=== PATIENT | female | born 1990 | race Caucasian/White ===

== ENCOUNTER 2019-02-12 10:09 | Inpatient (IN) ==
[2019-02-12 11:47] LABS: Appearance Urine Clear (Clear); Bilirubin Urine Negative (Negative); Blood Urine Negative (Negative); Color Urine Yellow; Glucose Urine UA Negative (Negative); Ketones Urine Negative (Negative); Leukocyte Esterase Urine Negative (Negative); Nitrite Urine Negative (Negative); Protein Urine Negative (Negative); Specific Gravity Urine 1.009 (1.000-1.030); Urobilinogen Urine Negative (Negative); pH Urine 6.5 (4.5-7.5)
[2019-02-12 11:47] LABS: Basophils # (auto) 0.03 K/uL (0-0.2); Basophils % (auto) 0.8 %; Eosinophils # (auto) 0.09 K/uL (0-0.5); Eosinophils % (auto) 2.3 %; Hematocrit (blood only) 40.3 % (37-47); Hemoglobin 14.2 g/dL (12.0-16.0); Immature Granulocytes # (auto) 0.01 K/uL (0.00-0.02); Immature Granulocytes % (auto) 0.3 %; Lymphocytes % (auto) 42.9 %; Mean Corpuscular Hgb Conc 35.2 g/dL (32-36); Mean Corpuscular Volume 103.1 fL (80-100); Mean Platelet Volume 9.7 fL (7.4-10.4); Monocytes # (auto) 0.36 K/uL (0.11-0.59); Monocytes % (auto) 9.1 %; Neutrophils # (auto) 1.77 K/uL (1.4-6.5); Neutrophils % (auto) 44.6 %; Platelet Count 217 K/uL (130-400); RDW Coefficient of Variation 14.7 % (11.5-14.5); RDW Standard Deviation 54.8 fL (36.4-46.3); Red Blood Count 3.91 M/uL (4.2-5.4); White Blood Count 3.96 K/uL (4.8-10.8)
[2019-02-12 12:06] LABS: Albumin Level 4.2 gm/dl (3.4-5.0); BUN Creatinine Ratio 4.1 (10-20); Calcium 9.2 mg/dl (8.5-10.1); Creatinine Clr Calc Pharmacy 98.2 ml/min; Est GFR (African American) 127.5
[2019-02-12 12:14] LABS: Amphetamines+Metham, Urine Neg (Neg); Barbiturates, Urine Neg (Neg); Benzodiazepine, Urine Neg (Neg); Cocaine, Urine Neg (Neg); MDMA (Ecstacy), Urine Neg (Neg); Methadone, Urine Neg (Neg); Opiate, Urine Neg (Neg); Phencyclidine, Urine Neg (Neg)
[2019-02-12 12:16] LABS: Albumin Globulin Ratio 1.1 (0.9-2); Bilirubin,Total 0.6 mg/dl (0.2-1); Globulin 3.9 gm/dl (2.5-4.0); Total Protein 8.1 gm/dl (6.4-8.2)
[2019-02-12] MEDS ORDERED: SODIUM CHLORIDE 0.9% 1000ML 500 ML IV ONE (12:28)
[2019-02-12] MEDS ORDERED: SODIUM CHLORIDE 0.9% 1000ML 1,000 ML IV STA (12:28)
[2019-02-12] MEDS ORDERED: MULTI-VITAMIN INFUSION 10 ML, THIAMINE HCL 100 MG, FOLIC ACID 1 MG in SODIUM CHLORIDE 0... IV SCH (12:30)
[2019-02-12] MEDS ORDERED: POTASSIUM CHLORIDE / WTR 10 MEQ/100 ML PLCT IV ONE (13:50)
[2019-02-12] MEDS ORDERED: NICOTINE 14 MG/24 HR PATCH TD STA (14:05)
--- NOTE | 2019-02-12 14:48 | History & Physical Report ---
Date of Service February 12, 2019 Assessment & Plan (1) Alcohol withdrawal: Pt presented to ER with ETOH intoxication, having visual hallucinations. No tremors, N/V, diaphoresis. Is calm, alert. ETOH level: 344. Negative urine tox screen. negative urine . Vitals stable. Reports was sober for 4 days until yesterday. Typically drinks 5-6 drinks daily. Hx alcohol withdrawal seizure in past. At this time pt voices not interested in in-patient rehab and thinks would like to do out patient rehab. -In ER pt was given 500ml NSS bolus then ran at 125ml/hr, banana bag -admit tele -alcohol withdrawal protocol with gabapentin and ativan -seizure precautions -alcohol cessation encouraged -check magnesium and phosphorus -liver profile, cmp, cbc in am -thiamine, folic acid, multivitamin daily (2) Hypokalemia: K: 3.0 In ER pt given potassium 10meq IV -replace and monitor (3) Tobacco use: -nicotine patch -smoking cessation encouraged (4) Depression: Denies active suicidal or homicidal ideations or plan -continue fluoxetine DVT Prophylaxis -SCDs Full Code Follows with Dr Salazar for routine care Pt was seen with Dr Rodriguez. See addendum History of Present Illness Chief Complaint: alcohol use Primary Care Provider: Stephenie Simmons MD Pt is 28 y/o F with PMH alcohol abuse, alcohol withdrawal seizures, depression presented to ER for alcohol use.It is reported by ER staff the patient was brought to the ER for disorientation. It is reported patient's father brought patient in as he reported that she was having some hallucinations. Upon questioning in ER patient admits to drinking alcohol last night. Patient reports to this provider she had 6 alcoholic drinks last night, last being around 3 AM today. Patient states drinks 5-6 alcoholic drinks a day. States prior to yesterday did not have any alcohol for 4 Patient denies any other drug use. Patient states this morning she started with visual hallucinations. Patient denies any nausea, vomiting, sweats, anxiety, headache, tremors at this time She reports in the past goes for several days once a month without drinking. She states in the past when she stops drinking she has nausea and vomiting, tremors, sweats and headache. Patient denies any active suicidal or homicidal ideations. In past has had passive suicidal ideations. No history of suicidal attempt. No current plan. Pt reports lives with her father and grand mother. 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 Patient states yesterday took her doxepin in the morning upon returning home from work and was only able to sleep approximately an hour and woke up and felt disoriented and had a headache.Denies having problems with doxepin in the past. Patient states is been taking her Prozac and feels like her moods are stable. She reports following with [facility] for therapy, However she states that she does not feel this is a good fit for her. Patient with history of hospitalization 11/04/18 for alcohol withdrawal and was discharged to [facility] and discharged 11/26/18. Patient also with history of hospitalizationIn 08/2018 for alcohol withdrawal seizures and needed Precedex drip during that admission. Denies fever/chills, current diaphoresis, N/V/D/C, SWARTZ, dizziness, syncope, vision changes, neck pain, CP, SOB, orthopnea, palpitations, cough, sore throat, choking, otalgia, rhinorrhea, abdominal pain, paresthesias, weakness, extremity edema, rashes, urinary symptoms. Allergies Allergy/AdvReac Type Severity Reaction Status Date / Time No Known Allergies Allergy Unverified 09/09/18 09:31 Home Medications Home Medications Medication Instructions Recorded Confirmed Type fluoxetine [Prozac] 20 mg PO DAILY 11/03/18 02/12/19 History doxepin 100 mg PO HS 02/12/19 02/12/19 History Past Med/Surg History Medical History Depression (Chronic) Elevated LFTs (Chronic) Alcohol withdrawal seizure (Resolved) Alcohol withdrawal delirium, acute, hyperactive (Resolved) Alcoholism (Chronic) Alcohol withdrawal seizure (Inactive) Social History Preferred Language: Citizen Of [place] Communication Ability: Effective Visual Impairment: Partially Limited Beliefs That Will Affect Care: None marital status: Single marital status details: Boyfriend Current Living Situation: Family Feels Safe at Home: No Is there a partner from a previous relationship who is making you feel unsafe now?: No Smoking Status: Current every day smoker Tobacco Type: cigarettes Second Hand Exposure: Yes Hx Alcohol Use: Yes Alcohol type: hard liquor Alcohol Intake Frequency Comment: 6-7 daily Hx Substance Use: Yes substance use type: unknown Review of Systems Review of Systems: All systems reviewed & are unremarkable except as noted in HPI & below Physical Exam Physical Exam: General: no acute distress, WDWN Head: normocephalic, atraumatic Eyes: PERRL, EOM's intact, conjunctiva non-injected, anicteric ENT: normal inspection external ears, nose, mucous membranes moist Neck: supple, trachea midline, non-tender Lungs: clear, no respiratory distress, no wheezing/rhonchi/rales CV: RRR, no murmur, no JVD, no pretibial edema Abd: normal BS, soft, non-tender Ext: no cyanosis, no calf tenderness Neuro: A&O x 3, pt easily distracted, talks off topic, no focal deficits noted, mildly flat affect Skin: warm, dry Results & Data Vital Signs (Past 12 Hours) Vital Signs Temp Pulse Pulse Resp BP BP Pulse Ox 02/12/19 12:09 94 H 18 114/64 97 02/12/19 10:29 36.7 C 95 H 18 103/66 96 Laboratory Results Short CBC 02/12/19 Range/Units 11:38 WBC 3.96 L (4.8-10.8) K/uL Hgb 14.2 (12.0-16.0) g/dL Hct 40.3 (37-47) % Plt Count 217 (130-400) K/uL BMP 02/12/19 11:38 Sodium 140 Potassium 3.0 L Chloride 102 Carbon Dioxide 30 BUN 3 L Creatinine 0.75 Glucose 89 Calcium 9.2 Liver Function 02/12/19 Range/Units 11:38 Total Bilirubin 0.6 (0.2-1) mg/dl AST 61 H (15-37) U/L ALT 43 (12-78) U/L Alkaline Phosphatase 112 (45-117) U/L Albumin 4.2 (3.4-5.0) gm/dl Urine 02/12/19 Range/Units 11:25 Urine Color Yellow Urine Appearance Clear (Clear) Urine pH 6.5 (4.5-7.5) Ur Specific [place] 1.009 (1.000-1.030) Urine Protein Negative (Negative) Urine Glucose (UA) Negative (Negative) Supervising Physician Co-Signing Physician Notes Attending addendum The patient was seen and examined in the emergency room Pt is 28 y/o F with PMH alcohol abuse, alcohol withdrawal seizures, depression presented to ER for alcohol use.It is reported by ER staff the patient was brought to the ER for disorientation She did not denies any complaints during my examination Has had episodes of hallucinations On examination Looks drowsy but no apparent distress Hemodynamically stable without tachycardia or tachypnea Chest-clear to auscultate bilaterally Heart-S1-S2 regular, no murmur appreciated Abdomen-benign Extremities-negative for any edema ROOF 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 A little drowsy without any focal localizing signs. No tremor on outstretched hand Admission labs and imaging studies noted History of alcoholism with recurrent withdrawal before and required admission Admitted to telemetry unit with alcohol withdrawal syndrome Agree with assessment and plan as outlined above by Ratna Rodriguez (1) Alcohol withdrawal Complication of substance-induced condition: with unspecified complication Qualified Code(s): F10.239 - Alcohol dependence with withdrawal, unspecified
[2019-02-12] MEDS ORDERED: LORazepam 1 MG/2 ML VIAL IV STA (15:01)
[2019-02-12] MEDS ORDERED: LORazepam 1 MG TAB PO PRN (16:03)
[2019-02-12] MEDS ORDERED: SODIUM CHLORIDE 0.9% 1000ML 1,000 ML IV SCH (16:03)
[2019-02-12] MEDS ORDERED: POTASSIUM CHLORIDE 10 MEQ TABCR PO STA (16:03)
[2019-02-12] MEDS ORDERED: GABAPENTIN 1200MG ALCOHOL WITHDRAWAL LOAD PO STA (16:03)
[2019-02-12] MEDS ORDERED: ACETAMINOPHEN 325 MG TAB PO PRN (16:03)
[2019-02-12 16:46] LABS: Magnesium 1.7 mg/dl (1.8-2.4); Phosphorus 2.7 mg/dl (2.5-4.9)
[2019-02-12] MEDS ORDERED: LORAZEPAM 3MG IV ACTIVE PROTOCOL IV PRN (17:00)
[2019-02-12] MEDS ORDERED: LORAZEPAM 2MG IV ACTIVE PROTOCOL IV PRN (17:00)
[2019-02-12] MEDS ORDERED: LORAZEPAM 1MG IV ACTIVE PROTOCOL IV PRN (17:00)
[2019-02-12] MEDS ORDERED: MAGNESIUM SULFATE / D5W 1 GM/100 ML BAG IV ONE (17:30)
[2019-02-12] MEDS ORDERED: GABAPENTIN 600 MG TAB PO SCH (18:00)
--- NOTE | 2019-02-12 18:02 | Emergency Department Note ---
Entered by Yanna Reich acting as a scribe for Kameron Mcguire MD ED Provider Note CHIEF COMPLAINT: Detox Request HISTORY OF PRESENT ILLNESS: The patient is a 28 year old female who presents to the Emergency Room with complaints of a detox request today. The patient states that she takes doxepin and that she now has a job and is working the third shift overnight. The patient also reports that she takes Prozac. She reports a history of anxiety and depression and states that she has had thoughts of hurting herself but does not have a plan. The patient states that she has a cat and reports that the cat and her family are the only things keeping her alive. The patient states that she was anorexic and bulimic in the past and states that she has seen a therapist before. She states that she drinks alcohol daily but reports that she is 4 days sober. The patient reports having occasional vomiting. She states that she does not eat much. She also reports having some diarrhea. She states that she follows with Dr. Salazar. The patient's father states that the patient lived in [facility] and that they spent money to get her back here to save the patient's life. Her father states that the patient was drinking alcohol and was not working at this time. Per father, the patient went to [place] in the past and has had 2 detoxes here. Her father states that the patient has been lying and has been drinking. Per father, the patient went to rehabilitation for alcohol. Her father states that the patient is "up and down." Her father states that the patient has been hallucinating every day. Per father, the patient has also had 2 seizures. Per father, the patient smelled of alcohol this morning. Pt denies LOC, headache, fevers, chills, diaphoresis, visual changes, neck pain, chest pain, breathing difficulties, abdominal pain, back pain, melena, hematochezia, urinary symptoms, numbness, weakness, lymphadenopathy, rash, or other complaints. REVIEW OF SYSTEMS: See HPI for pertinent positives and negatives. A total of ten systems were reviewed and were otherwise negative. PMHx/PSHx: Hepatomegaly, DVT, seizure, alcohol withdrawal, alcoholism, anorexia, bulimia SOCIAL HISTORY: Patient lives at home. PHYSICAL EXAM: GENERAL: Awake, intoxicated-appearing, in no distress HENT: Normocephalic, atraumatic. Oropharynx unremarkable. Lateral nystagmus. EYES: PERRL. Normal conjunctiva. Sclera non-icteric. NECK: Inspection normal. Non-tender. Supple. No nuchal rigidity. FROM. No masses . RESPIRATORY: Clear to auscultation. No wheezes. No rales. Normal respiratory effort. CARDIAC: Borderline tachycardic rate. Normal rhythm. No murmurs. No rubs. Extremities warm and well perfused. Pulses equal. No JVD. GI: Soft, non-distended. No tenderness to palpation. No rebound or guarding. No masses. RECTAL: Deferred. MUSCULOSKELETAL: Atraumatic. Chest examination reveals no tenderness. The back is symmetrical on inspection without obvious abnormality. There is no CVA tenderness to palpation. No joint edema. LOWER EXTREMITIES: Calves are equal size bilaterally and non-tender. No edema. No discoloration. NEURO: Normal sensorium. No sensory or motor deficits noted. SKIN: No rash or jaundice noted. PSYCH: Vague SI. EMERGENCY DEPARTMENT COURSE: 1201: Past medical records reviewed. The patient was evaluated in room A7, and a complete history and physical examination were performed. 1318: The patient admitted to drinking last night. 1327: I discussed the patient's case with Ratna Monet admitting to Dr. Rodriguez who will evaluate the patient for further management. MEDICAL DECISION MAKING: Triage Nursing notes reviewed and agree them. Additional history obtained from the family. The patient's history was concerning for possible psychiatric disturbance and alcohol abuse. Differential diagnosis: Etiologies such as mood disorder, infection, hypoglycemia, electrolyte abnormalities, cardiac sources, intracerebral event, toxicologic, neurologic, as well as others were entertained. Physical examination: The physical examination was performed as above. No emergent medical pathologies were noted. ER treatment provided: IV normal saline Banana bag IV potassium Nicotine patch On reassessment the patient felt better. Diagnostic interpretation by me: The labs revealed an elevated MCV on her CBC. Patient's LFTs were minimally elevated as well. Her alcohol is significantly elevated at 344 mg/dL. The patient states she has not had alcohol since last night which raises concerns about the peak level being extremely elevated. Patient also has hypokalemia. Urine drug screen negative. Imaging studies: Deferred Consultation: A consultation was made with internal medicine. The patient will need further management in the hospital as she has very high risk for withdrawal having had seizures before. Case management was involved. IMPRESSION: Alcohol intoxication, hypokalemia, elevated LFTs PLAN: Admission The scribe's documentation has been prepared under my direction and personally reviewed by me in its entirety. I confirm that the note above accurately reflects all work, treatment, procedures, and medical decision making performed by me. Impression & Plan Alcohol intoxication, Hypokalemia, Elevated LFTs Past Med/Surg History Medical History Depression (Chronic) Elevated LFTs (Chronic) Alcohol withdrawal seizure (Resolved) Alcohol withdrawal delirium, acute, hyperactive (Resolved) Alcoholism (Chronic) Alcohol withdrawal seizure (Inactive) Social History Preferred Language: [place] Communication Ability: Effective Visual Impairment: Partially Limited V Belt Curer Required: No Beliefs That Will Affect Care: None marital status: Single marital status details: Boyfriend Current Living Situation: Family Other Information That Helps Us Care for You: No Feels Safe at Home: Yes Safety Concerns: Feels Safe At This Time Smoking Status: Current every day smoker Tobacco Type: cigarettes Do You Dip or Chew Tobacco: No Second Hand Exposure: Yes Tobacco Cessation Education Requested by Patient: Yes Hx Alcohol Use: Yes Alcohol type: beer, hard liquor and other Alcohol Intake Frequency Comment: 6-7 daily Hx Substance Use: No Results & Data Vital Signs Vital Signs - 24 hr 02/12/19 10:29 02/12/19 12:09 02/12/19 14:54 Temperature 36.7 C Temperature Source Oral Sepsis Recent Fever Within 48 Hours No Sepsis New/Unexplained Change in Mental Status No Sepsis Action Taken by Nursing No Action Required Pulse Rate 95 H Pulse Rate [Apical] 94 H 90 Pulse Rhythm [Apical] Regular Pulse Strength [Apical] Normal Respiratory Rate 18 18 16 Respiratory Effort / Characteristics Non-Labored Spontaneous Non-Labored Respiratory Depth Normal Normal Normal Respiratory Pattern Regular Blood Pressure 103/66 Blood Pressure [Left Arm] 114/64 113/75 Blood Pressure Mean 78 Blood Pressure Mean [Left Arm] 80 87 Blood Pressure Position [Left Arm] Lying Pulse Oximetry 96 97 100 Oxygen Delivery Method Room Air Room Air Room Air 02/12/19 16:03 Temperature 36.4 C L Temperature Source Oral Sepsis Recent Fever Within 48 Hours Sepsis New/Unexplained Change in Mental Status Sepsis Action Taken by Nursing Pulse Rate Pulse Rate [Apical] 90 Pulse Rhythm [Apical] Regular Pulse Strength [Apical] Normal Respiratory Rate 16 Respiratory Effort / Characteristics Non-Labored Respiratory Depth Normal Respiratory Pattern Blood Pressure Blood Pressure [Left Arm] 104/71 Blood Pressure Mean Blood Pressure Mean [Left Arm] 82 Blood Pressure Position [Left Arm] Sitting Pulse Oximetry 100 Oxygen Delivery Method Room Air Home Medications Current Medication List: was personally reviewed by me Laboratory Data Attestation: I reviewed the patient's lab results. Result diagrams: 02/12/19 11:38 02/12/19 11:38 Lab Results 02/12/19 02/12/19 02/12/19 Range/Units 11:25 11:25 11:25 WBC (4.8-10.8) K/uL RBC (4.2-5.4) M/uL Hgb (12.0-16.0) g/dL Hct (37-47) % MCV (80-100) fL MCH (25-34) pg MCHC (32-36) g/dL RDW Std Deviation (36.4-46.3) fL RDW Coeff of Vinod (11.5-14.5) % Plt Count (130-400) K/uL MPV (7.4-10.4) fL Immature Gran % (Auto) % Neut % (Auto) % Lymph % (Auto) % Rab[place] % (Auto) % Eos % (Auto) % Baso % (Auto) % Immature Gran # (Auto) (0.00-0.02) K/uL Neut # (Auto) (1.4-6.5) K/uL Lymph # (Auto) (1.2-3.4) K/uL [place] # (Auto) (0.11-0.59) K/uL Eos # (Auto) (0-0.5) K/uL Baso # (Auto) (0-0.2) K/uL Sodium (136-145) mmol/L Potassium (3.5-5.1) mmol/L Chloride (98-107) mmol/L Carbon Dioxide (21-32) mmol/L Anion Gap (3-11) BUN (7-18) mg/dl Creatinine (0.6-1.2) mg/dl Est Cr Clr Drug Dosing ml/min Est GFR ( Amer) Est GFR (Non-Af Amer) BUN/Creatinine Ratio (10-20) Glucose (70-99) mg/dl Calcium (8.5-10.1) mg/dl Phosphorus (2.5-4.9) mg/dl Magnesium (1.8-2.4) mg/dl Total Bilirubin (0.2-1) mg/dl AST (15-37) U/L ALT (12-78) U/L Alkaline Phosphatase (45-117) U/L Total Protein (6.4-8.2) gm/dl Albumin (3.4-5.0) gm/dl Globulin (2.5-4.0) gm/dl Albumin/Globulin Ratio (0.9-2) Folate (>5.38) ng/ml TSH (0.300-4.500) uIu/ml Urine Color Yellow Urine Appearance Clear (Clear) Urine pH 6.5 (4.5-7.5) Ur Specific [place] 1.009 (1.000-1.030) Urine Protein Negative (Negative) Urine Glucose (UA) Negative (Negative) Urine Ketones Negative (Negative) Urine Blood Negative (Negative) Urine Nitrite Negative (Negative) Urine Bilirubin Negative (Negative) Urine Urobilinogen Negative (Negative) Ur Leukocyte Esterase Negative (Negative) POC Ur Test NEG (NEG) Urine Opiates Screen Neg (Neg) Ur Methadone, Qual Neg (Neg) Urine Barbiturates Neg (Neg) Ur Phencyclidine (PCP) Neg (Neg) U Amphetamin/Meth Scrn Neg (Neg) MDMA (Ecstasy) Screen Neg (Neg) U Benzodiazepines Scrn Neg (Neg) Ur Cocaine Metabolite Neg (Neg) U Marijuana (THC) Screen Neg (Neg) Ethyl Alcohol mg/dL (0-3) mg/dl 02/12/19 02/12/19 02/12/19 Range/Units 11:38 11:38 11:38 WBC 3.96 L (4.8-10.8) K/uL RBC 3.91 L (4.2-5.4) M/uL Hgb 14.2 (12.0-16.0) g/dL Hct 40.3 (37-47) % MCV 103.1 H (80-100) fL MCH 36.3 H (25-34) pg MCHC 35.2 (32-36) g/dL RDW Std Deviation 54.8 H (36.4-46.3) fL RDW Coeff of Vinod 14.7 H (11.5-14.5) % Plt Count 217 (130-400) K/uL MPV 9.7 (7.4-10.4) fL Immature Gran % (Auto) 0.3 % Neut % (Auto) 44.6 % Lymph % (Auto) 42.9 % Rab[place] % (Auto) 9.1 % Eos % (Auto) 2.3 % Baso % (Auto) 0.8 % Immature Gran # (Auto) 0.01 (0.00-0.02) K/uL Neut # (Auto) 1.77 (1.4-6.5) K/uL Lymph # (Auto) 1.70 (1.2-3.4) K/uL [place] # (Auto) 0.36 (0.11-0.59) K/uL Eos # (Auto) 0.09 (0-0.5) K/uL Baso # (Auto) 0.03 (0-0.2) K/uL Sodium 140 (136-145) mmol/L Potassium 3.0 L (3.5-5.1) mmol/L Chloride 102 (98-107) mmol/L Carbon Dioxide 30 (21-32) mmol/L Anion Gap 8.0 (3-11) BUN 3 L (7-18) mg/dl Creatinine 0.75 (0.6-1.2) mg/dl Est Cr Clr Drug Dosing 98.2 ml/min Est GFR ( Amer) 127.5 Est GFR (Non-Af Amer) 110.0 BUN/Creatinine Ratio 4.1 L (10-20) Glucose 89 (70-99) mg/dl Calcium 9.2 (8.5-10.1) mg/dl Phosphorus (2.5-4.9) mg/dl Magnesium (1.8-2.4) mg/dl Total Bilirubin 0.6 (0.2-1) mg/dl AST 61 H (15-37) U/L ALT 43 (12-78) U/L Alkaline Phosphatase 112 (45-117) U/L Total Protein 8.1 (6.4-8.2) gm/dl Albumin 4.2 (3.4-5.0) gm/dl Globulin 3.9 (2.5-4.0) gm/dl Albumin/Globulin Ratio 1.1 (0.9-2) Folate (>5.38) ng/ml TSH 1.100 (0.300-4.500) uIu/ml Urine Color Urine Appearance (Clear) Urine pH (4.5-7.5) Ur Specific [place] (1.000-1.030) Urine Protein (Negative) Urine Glucose (UA) (Negative) Urine Ketones (Negative) Urine Blood (Negative) Urine Nitrite (Negative) Urine Bilirubin (Negative) Urine Urobilinogen (Negative) Ur Leukocyte Esterase (Negative) POC Ur Test (NEG) Urine Opiates Screen (Neg) Ur Methadone, Qual (Neg) Urine Barbiturates (Neg) Ur Phencyclidine (PCP) (Neg) U Amphetamin/Meth Scrn (Neg) MDMA (Ecstasy) Screen (Neg) U Benzodiazepines Scrn (Neg) Ur Cocaine Metabolite (Neg) U Marijuana (THC) Screen (Neg) Ethyl Alcohol mg/dL 344.0 H (0-3) mg/dl 02/12/19 02/12/19 Range/Units 16:10 16:10 WBC (4.8-10.8) K/uL RBC (4.2-5.4) M/uL Hgb (12.0-16.0) g/dL Hct (37-47) % MCV (80-100) fL MCH (25-34) pg MCHC (32-36) g/dL RDW Std Deviation (36.4-46.3) fL RDW Coeff of Vinod (11.5-14.5) % Plt Count (130-400) K/uL MPV (7.4-10.4) fL Immature Gran % (Auto) % Neut % (Auto) % Lymph % (Auto) % [place] % (Auto) % Eos % (Auto) % Baso % (Auto) % Immature Gran # (Auto) (0.00-0.02) K/uL Neut # (Auto) (1.4-6.5) K/uL Lymph # (Auto) (1.2-3.4) K/uL [place] # (Auto) (0.11-0.59) K/uL Eos # (Auto) (0-0.5) K/uL Baso # (Auto) (0-0.2) K/uL Sodium (136-145) mmol/L Potassium (3.5-5.1) mmol/L Chloride (98-107) mmol/L Carbon Dioxide (21-32) mmol/L Anion Gap (3-11) BUN (7-18) mg/dl Creatinine (0.6-1.2) mg/dl Est Cr Clr Drug Dosing ml/min Est GFR ( Amer) Est GFR (Non-Af Amer) BUN/Creatinine Ratio (10-20) Glucose (70-99) mg/dl Calcium (8.5-10.1) mg/dl Phosphorus 2.7 (2.5-4.9) mg/dl Magnesium 1.7 L (1.8-2.4) mg/dl Total Bilirubin (0.2-1) mg/dl AST (15-37) U/L ALT (12-78) U/L Alkaline Phosphatase (45-117) U/L Total Protein (6.4-8.2) gm/dl Albumin (3.4-5.0) gm/dl Globulin (2.5-4.0) gm/dl Albumin/Globulin Ratio (0.9-2) Folate > 24.00 (>5.38) ng/ml TSH (0.300-4.500) uIu/ml Urine Color Urine Appearance (Clear) Urine pH (4.5-7.5) Ur Specific [place] (1.000-1.030) Urine Protein (Negative) Urine Glucose (UA) (Negative) Urine Ketones (Negative) Urine Blood (Negative) Urine Nitrite (Negative) Urine Bilirubin (Negative) Urine Urobilinogen (Negative) Ur Leukocyte Esterase (Negative) POC Ur Test (NEG) Urine Opiates Screen (Neg) Ur Methadone, Qual (Neg) Urine Barbiturates (Neg) Ur Phencyclidine (PCP) (Neg) U Amphetamin/Meth Scrn (Neg) MDMA (Ecstasy) Screen (Neg) U Benzodiazepines Scrn (Neg) Ur Cocaine Metabolite (Neg) U Marijuana (THC) Screen (Neg) Ethyl Alcohol mg/dL (0-3) mg/dl Administered Medications Discontinued Medications Multivitamins 10 ml/ Thiamine HCl 100 mg/ Folic Acid 1 mg/Sodium Chloride 1,011.2 mls @ 1,011.2 mls/hr IV .Q1H RUSS Stop: 02/12/19 13:29 Last Infusion: 02/12/19 14:52 Dose: 0 mls/hr Documented by: [id number] Admin: 02/12/19 13:21 Dose: 1,011.2 mls/hr Documented by: [id number] Sodium Chloride (Nss 1000ml) 500 mls @ 999 mls/hr IV .Q31M ONE Stop: 02/12/19 12:58 Last Infusion: 02/12/19 13:20 Dose: 0 mls/hr Documented by: [id number] Admin: 02/12/19 12:46 Dose: 999 mls/hr Documented by: [id number] Sodium Chloride (Nss 1000ml) 1,000 mls @ 125 mls/hr IV .Q8H STA Stop: 02/12/19 20:27 Last Admin: 02/12/19 13:21 Dose: 125 mls/hr Documented by: [id number] Potassium Chloride (K Florentin / Wtr) 10 meq in 100 mls @ 100 mls/hr IV ONE ONE Stop: 02/12/19 14:49 Last Infusion: 02/12/19 17:21 Dose: 0 mls/hr Documented by: [id number] Admin: 02/12/19 14:36 Dose: 100 mls/hr Documented by: [id number] Blood Pressure Blood Pressure Findings: Normal blood pressure Discharge Plan Visit Data *Final* Discharge Date/Time: 02/12/19 14:57 Chief Complaint: Detox Request Stated Complaint: DETOX ED Provider: Kameron Mcguire Discharge Problem: Alcohol intoxication, Hypokalemia, Elevated LFTs Patient Disposition: Admitted As Inpatient Discharge Instructions Interventions: ED Discharge Assessment Last Done: 02/12/19 14:57 The scribe's documentation has been prepared under my direction and personally reviewed by me in its entirety. I confirm that the note above accurately reflects all work, treatment, procedures, and medical decision making performed by me.
[2019-02-12] MEDS: THIAMINE HCL 100 MG TAB PO SCH (18:04)
[2019-02-12] MEDS ORDERED: POTASSIUM CHLORIDE 20 MEQ TABCR PO ONE (19:00)
[2019-02-12] MEDS: GABAPENTIN 600 MG TAB PO SCH (23:38)
[2019-02-13] MEDS: GABAPENTIN 600 MG TAB PO SCH ×4 (05:53→21:44)
[2019-02-13 07:14] LABS: Hematocrit (blood only) 35.8 % (37-47); Hemoglobin 11.9 g/dL (12.0-16.0); Mean Corpuscular Hgb Conc 33.2 g/dL (32-36); Mean Corpuscular Volume 105.9 fL (80-100); Mean Platelet Volume 9.5 fL (7.4-10.4); Platelet Count 182 K/uL (130-400); RDW Coefficient of Variation 14.6 % (11.5-14.5); RDW Standard Deviation 56.3 fL (36.4-46.3); Red Blood Count 3.38 M/uL (4.2-5.4); White Blood Count 4.46 K/uL (4.8-10.8)
[2019-02-13 07:45] LABS: Alanine Aminotransferase 32 U/L (12-78); Albumin Level 3.1 gm/dl (3.4-5.0); Alkaline Phosphatase 104 U/L (45-117); Aspartate Aminotransferase 47 U/L (15-37); BUN Creatinine Ratio 11.8 (10-20); Bilirubin Direct < 0.1 mg/dl (0-0.2); Bilirubin,Total 0.3 mg/dl (0.2-1); Blood Urea Nitrogen 8 mg/dl (7-18); Calcium 8.7 mg/dl (8.5-10.1); Carbon Dioxide 27 mmol/L (21-32); Chloride 109 mmol/L (98-107); Creatinine Clr Calc Pharmacy 103.1 ml/min; Est GFR (African American) 138.6; Est GFR (Non-African American) 119.6; Globulin 3.2 gm/dl (2.5-4.0); Glucose 77 mg/dl (70-99); Magnesium 1.8 mg/dl (1.8-2.4); Potassium 3.7 mmol/L (3.5-5.1); Sodium 143 mmol/L (136-145); Total Protein 6.3 gm/dl (6.4-8.2)
[2019-02-13] MEDS: FLUOXETINE HCL 20 MG CAP PO SCH (08:25)
[2019-02-13] MEDS: FOLIC ACID 400 MCG TAB PO SCH (08:25)
[2019-02-13] MEDS: MULTIVITAMIN TAB PO SCH (08:25)
[2019-02-13] MEDS: THIAMINE HCL 100 MG TAB PO SCH (08:25)
--- NOTE | 2019-02-13 10:59 | Hospitalist Progress Note ---
Date of Service February 13, 2019 Assessment & Plan (1) Alcohol withdrawal: This is a 28yo F with a PMH of alcohol use disorder, h/o alcohol withdrawal seizure and delirium, tobacco use who presented to ER with ETOH intoxication, having visual hallucination with ETOH level of 344. -Feeling much better today. Vital signs are stable. Etoh level <3. No tremors, nausea or vomiting - Typically drinks 5-6 drinks daily, last drink 2 days ago. H/o alcohol withdrawal seizure in past. -Discussed inpatient and outpatient rehab options, but patient is not interested in either at this time -Will continue to monitor today with alcohol withdrawal protocol with gabapentin and ativan -Seizure precautions -Alcohol cessation encouraged -Continue Thiamine, folic acid, multivitamin daily (2) Hypokalemia: Resolved. K today 3.7 -Eating well, no diarrhea -Continue to monitor with daily BMP (3) Tobacco use: -Nicotine patch ordered -smoking cessation encouraged (4) Depression: Denies active suicidal or homicidal ideations or plan -Continue fluoxetine DVT Prophylaxis: SCDs Code status: FULL PCP: Dr Salazar Dispo: Monitor overnight. Possible discharge home tomorrow. Plan to return home once medically stable. Patient seen in collaboration with Dr. Rodriguez. Please see addendum. Attending Addendum: delayed entry date of service as noted above care coordinated with NISREEN Lopez please refer to her notes for full details, I agree with her notes patient seen and examined, records reviewed by myself as well on exam, patient seen with RN at bedside thru whole encounter states she feels fine overall denies tremors, anxiety, palpitations, chest pain, dyspnea, dizziness no other symptoms VS noted and reviewed oriented x3, not in distress, speaks in sentences with no effort nor accessory muscle use normal rate, regular rhythm, no murmurs clear breath sounds bilaterally non distended, soft, nontender no bipedal edema, erythema, warmth no neuro deficits WBC 4.4 Hg 11.9 Crea 0.61 ASSESSMENT AND PLAN Alcohol withdrawal No signs of alcohol withdrawal symptoms at this time Continue gabapentin protocol Continue to monitor closely History of depression Denies feeling depressed with suicidal ideations Continue usual fluoxetine other diagnoses and plan of care as per NISREEN Lopez's notes Ganga Rodriguez MD Subjective Patient seen and examined. Feeling much better today, denies any lightheadedness, headache, seizure, nausea, vomiting or tremors. Slept well last night, tolerating food well. Discussed option of outpatient rehab, but patient states that she is tried it before and is not interested in it at this time. No fever, chills, chest pain, palpitations, shortness of breath, abdominal pain, dysuria, diarrhea or constipation. Review of Systems Review of Systems: At least ten systems reviewed and negative except as noted in the HPI. Physical Exam Physical Exam: General Appearance: WD/WN, no apparent distress, resting comfortably Head: normocephalic, atraumatic Eyes: normal inspection, PERRL, EOMI ENT: hearing grossly normal, pharynx normal (moist mucous membranes) Neck: supple, no JVD, no adenopathy Respiratory/Chest: lungs clear to auscultation. No wheezes, rales or rhonci. No respiratory distress or accessory muscle use Cardiovascular: regular rate, rhythm, no murmur, normal peripheral pulses Abdomen/GI: normal bowel sounds, soft, non-tender to palpation Extremities/Musculoskelatal: normal inspection, no calf tenderness, normal capillary refill, no pedal edema Neurologic/Psych: alert, normal mood/affect, oriented x 3 Skin: normal color, warm/dry Results & Data Vital Signs (Past 12 Hours) Vital Signs Temp Pulse Pulse Resp BP BP Pulse Ox 02/13/19 08:00 72 02/13/19 07:03 36.6 C 73 18 126/89 97 02/13/19 03:12 37.3 C 76 18 124/82 96 02/13/19 00:31 105 H 02/13/19 00:00 02/12/19 23:25 37 C 110 H 16 107/64 97 Pulse Ox 02/13/19 08:00 96 02/13/19 07:03 02/13/19 03:12 02/13/19 00:31 02/13/19 00:00 96 02/12/19 23:25 Laboratory Results Short CBC 02/13/19 Range/Units 06:56 WBC 4.46 L (4.8-10.8) K/uL Hgb 11.9 L (12.0-16.0) g/dL Hct 35.8 L (37-47) % Plt Count 182 (130-400) K/uL BMP 02/13/19 06:56 Sodium 143 Potassium 3.7 D Chloride 109 H Carbon Dioxide 27 BUN 8 D Creatinine 0.70 Glucose 77 Calcium 8.7 Liver Function 02/13/19 Range/Units 06:56 Total Bilirubin 0.3 (0.2-1) mg/dl Direct Bilirubin < 0.1 (0-0.2) mg/dl AST 47 H (15-37) U/L ALT 32 (12-78) U/L Alkaline Phosphatase 104 (45-117) U/L Albumin 3.1 L (3.4-5.0) gm/dl (1) Alcohol withdrawal Complication of substance-induced condition: with unspecified complication Qualified Code(s): F10.239 - Alcohol dependence with withdrawal, unspecified
[2019-02-13] MEDS: NICOTINE 21 MG/24 HR TDSY TD SCH (18:20)
[2019-02-14] MEDS: GABAPENTIN 600 MG TAB PO SCH (05:37)
[2019-02-14 05:49] LABS: Hematocrit (blood only) 41.4 % (37-47); Hemoglobin 14.5 g/dL (12.0-16.0); Mean Corpuscular Volume 104.8 fL (80-100); Mean Platelet Volume 10.3 fL (7.4-10.4); Platelet Count 205 K/uL (130-400); RDW Coefficient of Variation 14.6 % (11.5-14.5); RDW Standard Deviation 55.4 fL (36.4-46.3); Red Blood Count 3.95 M/uL (4.2-5.4)
[2019-02-14 06:17] LABS: BUN Creatinine Ratio 6.5 (10-20); Calcium 9.7 mg/dl (8.5-10.1); Creatinine Clr Calc Pharmacy 118.7 ml/min; Est GFR (Non-African American) 125.1; Potassium 3.7 mmol/L (3.5-5.1)
[2019-02-14] MEDS: FLUOXETINE HCL 20 MG CAP PO SCH (07:58)
[2019-02-14] MEDS: THIAMINE HCL 100 MG TAB PO SCH (07:58)
[2019-02-14] MEDS: FOLIC ACID 400 MCG TAB PO SCH (07:58)
[2019-02-14] MEDS: MULTIVITAMIN TAB PO SCH (07:58)
[2019-02-14] MEDS: NICOTINE 21 MG/24 HR TDSY TD SCH (07:58)
--- NOTE | 2019-02-14 10:26 | Hospitalist Progress Note ---
Date of Service February 14, 2019 Assessment & Plan (1) Alcohol withdrawal: This is a 28yo F with a PMH of alcohol use disorder, h/o alcohol withdrawal seizure and delirium, tobacco use who presented to ER with ETOH intoxication, having visual hallucination with ETOH level of 344. -Continues to feel well. More anxious with hypertension and tachycardia this morning. Resolved with PRN 0.5mg IV ativan. Will continue as needed -Withdrawal protocol with gabapentin. Now on Q12 scheduling. PRN Ativan 0.5mg IV Q4H -Will continue to monitor overnight, history h/o delirium and alcohol withdrawal seizure in past, last drink 2.5 days ago -Discussed inpatient and outpatient rehab options, but patient is not interested in either at this time -Seizure precautions -Alcohol cessation encouraged -Continue Thiamine, folic acid, multivitamin daily (2) Hypokalemia: Resolved. K today 3.7 -Eating well, no diarrhea -Continue maintenance fluids with 20 mEQ KCL (3) Tobacco use: -Nicotine patch ordered -Smoking cessation encouraged (4) Depression: Denies active suicidal or homicidal ideations or plan -Continue fluoxetine -Not receiving Doxepin. Recommend following up with PCP to further discuss this DVT Prophylaxis: SCDs, ambulation encouraged Code status: FULL PCP: Dr Salazar Dispo: Monitor overnight. Possible discharge home tomorrow. Plan to return home once medically stable. Patient seen in collaboration with Dr. Rodriguez. Please see addendum. Attending Addendum: Late entry date of service as noted above care coordinated with NISREEN Lopez please refer to her notes for full details, I agree with her notes patient seen and examined, records reviewed by myself as well Seen with KARO Amaya at bedside throughout the whole encounter on exam, patient seen resting in bed, comfortable States she feels fine overall Denies feeling shaky, anxiety, hallucinations Shortness of breath, chest pain, dizziness no other symptoms VS noted and reviewed oriented x3, not in distress, speaks in sentences with no effort nor accessory muscle use normal rate, regular rhythm, no murmurs clear breath sounds bilaterally crackles wheezing non distended, soft, nontender no bipedal edema, erythema, warmth no neuro deficits Positive mild tremors of the fingers WBC 4.7 Hg 14.5 Crea 0.61 ASSESSMENT AND PLAN Alcohol withdrawal Positive mild tremors today Continue gabapentin protocol On PRN Ativan Continue to monitor closely History of depression Denies feeling depressed with suicidal ideations Continue usual fluoxetine other diagnoses and plan of care as per NISREEN Lopez's notes Ganga Rodriguez MD Subjective Patient seen and examined. Feeling better today, able to do yoga this morning. Now feeling a little anxious, with hand tremors. Denies any lightheadedness, headache, seizure, nausea or vomiting. Tolerating food, increased oral intake of fluids. Discussed patient staying until morning to due history of etoh withdrawal seizure, still within window of risk. Is agreeable to this. No fever, chills, chest pain, palpitations, shortness of breath, abdominal pain, dysuria, diarrhea or constipation. Review of Systems Review of Systems: At least ten systems reviewed and negative except as noted in the HPI. Physical Exam Physical Exam: General Appearance: WD/WN, no apparent distress, mildly anxious with hand tremors Head: normocephalic, atraumatic Eyes: normal inspection, PERRL, EOMI ENT: hearing grossly normal, pharynx normal (moist mucous membranes) Neck: supple, no JVD, no adenopathy Respiratory/Chest: lungs clear to auscultation. No wheezes, rales or rhonci. No respiratory distress or accessory muscle use Cardiovascular: tachycardic, rhythm, no murmur, normal peripheral pulses Abdomen/GI: normal bowel sounds, soft, non-tender to palpation Extremities/Musculoskelatal: normal inspection, no calf tenderness, normal capillary refill, no pedal edema Neurologic/Psych: alert, normal mood/affect, oriented x 3 Skin: normal color, warm/dry Results & Data Vital Signs (Past 12 Hours) Vital Signs Temp Pulse Pulse Resp BP BP Pulse Ox 02/14/19 09:00 68 02/14/19 08:10 36.4 C L 70 19 146/101 H 100 02/14/19 08:00 02/14/19 03:27 37.0 C 84 17 137/97 100 02/14/19 00:10 91 H 02/13/19 23:40 36.9 C 79 20 134/95 99 Pulse Ox 02/14/19 09:00 02/14/19 08:10 02/14/19 08:00 96 02/14/19 03:27 02/14/19 00:10 02/13/19 23:40 Laboratory Results Short CBC 02/14/19 Range/Units 05:26 WBC 4.70 L (4.8-10.8) K/uL Hgb 14.5 (12.0-16.0) g/dL Hct 41.4 (37-47) % Plt Count 205 (130-400) K/uL BMP 02/14/19 05:26 Sodium 138 Potassium 3.7 Chloride 104 Carbon Dioxide 31 BUN 4 L Creatinine 0.61 Glucose 92 Calcium 9.7 (1) Alcohol withdrawal Complication of substance-induced condition: with unspecified complication Qualified Code(s): F10.239 - Alcohol dependence with withdrawal, unspecified
[2019-02-14] MEDS: LORazepam 0.5 MG/1 ML VIAL IV PRN ×2 (10:35→23:15)
[2019-02-14] MEDS: NSS + 20MEQ KCL 20 MEQ/1,000 ML BAG IV SCH (12:17)
[2019-02-15] MEDS: NSS + 20MEQ KCL 20 MEQ/1,000 ML BAG IV SCH ×2 (03:59→16:21)
[2019-02-15] MEDS: GABAPENTIN 600 MG TAB PO SCH (06:16)
[2019-02-15 06:41] LABS: Hematocrit (blood only) 39.5 % (37-47); Hemoglobin 13.6 g/dL (12.0-16.0); Mean Corpuscular Hgb Conc 34.4 g/dL (32-36); Mean Corpuscular Volume 105.9 fL (80-100); Mean Platelet Volume 10.3 fL (7.4-10.4); Platelet Count 217 K/uL (130-400); RDW Coefficient of Variation 15.1 % (11.5-14.5); RDW Standard Deviation 57.4 fL (36.4-46.3); Red Blood Count 3.73 M/uL (4.2-5.4); White Blood Count 5.53 K/uL (4.8-10.8)
[2019-02-15 07:15] LABS: BUN Creatinine Ratio 11.9 (10-20); Calcium 8.9 mg/dl (8.5-10.1); Creatinine Clr Calc Pharmacy 111.4 ml/min; Est GFR (Non-African American) 122.5
[2019-02-15 08:08] LABS: Potassium 4.3 mmol/L (3.5-5.1)
[2019-02-15] MEDS: NICOTINE 21 MG/24 HR TDSY TD SCH (08:15)
[2019-02-15] MEDS: FLUOXETINE HCL 20 MG CAP PO SCH (08:16)
[2019-02-15] MEDS: FOLIC ACID 400 MCG TAB PO SCH (08:16)
[2019-02-15] MEDS: THIAMINE HCL 100 MG TAB PO SCH (08:16)
[2019-02-15] MEDS: MULTIVITAMIN TAB PO SCH (08:16)
--- NOTE | 2019-02-15 11:08 | Hospitalist Progress Note ---
Date of Service February 15, 2019 Assessment & Plan (1) Alcohol withdrawal: This is a 28yo F with a PMH of alcohol use disorder, h/o alcohol withdrawal seizure and delirium, tobacco use who presented to ER with ETOH intoxication, having visual hallucination with ETOH level of 344. -Feeling better. Some tachycardia overnight, required PRN Ativan twice yesterday, still on gabapentin taper until tomorrow -History h/o delirium and alcohol withdrawal seizure in past, last drink 3 days ago -Discussed inpatient and outpatient rehab options, but patient is not interested in either at this time -Alcohol cessation encouraged. Continue Thiamine, folic acid, multivitamin daily (2) Hypokalemia: Resolved. 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 Plan to return home once medically stable. Patient seen in collaboration with Dr. Rodriguez. Please see addendum. Attending Addendum: care coordinated with NISREEN Lopez please refer to her notes for full details, I agree with her notes patient seen and examined, records reviewed by myself as well And seen with KARO Polk and patient's father at the bedside throughout the whole encounter on exam, patient seen sitting up in bed, comfortable, not in distress States she is anxious today because that she would like to go home and go back to work as well Otherwise denies hallucinations, sweating, chest pain, dizziness, shortness of breath Ambulating with no problems no other symptoms VS noted and reviewed oriented x3, not in distress, speaks in sentences with no effort nor accessory muscle use normal rate, regular rhythm, no murmurs clear breath sounds bilaterally non distended, soft, nontender no bipedal edema, erythema, warmth Positive very mild tremors of the fingers no neuro deficits WBC 5.5 Hg 13.6 Crea 0.65 ASSESSMENT AND PLAN Alcohol withdrawal Still with mild tremors of the fingers today Continue gabapentin protocol PRN Ativan Discussed with patient and her father, they are understanding and agreeable with plan of care History of depression Denies feeling depressed with suicidal ideations Patient's father reports that patient's mood has been up and down lately, also reports regular sleep She currently takes Prozac and doxepin Doxepin held after discussion with psychiatry service, may cause cardiotoxicity if taken in large amounts Psychiatry service consulted for further evaluation and medical management other diagnoses and plan of care as per NISREEN Lopez's notes Ganga Rordiguez MD Subjective Patient seen and examined. Feeling better today, able to walk around halls last evening and this morning. Feeling anxious about returning home but also nervous about losing her job as she states in hospital longer. Physically, feeling good. Mild hand tremors. Denies any lightheadedness, headache, palpitations, chest pain, shortness of breath or abdominal pain. Eating well. Wants to go home today, but understands that she is still in the process of withdrawal. After discussion with her dad, patient is agreeable to staying 1 more day for psychiatric evaluation for depression/anxiety. Review of Systems Review of Systems: At least ten systems reviewed and negative except as noted in the HPI. Physical Exam Physical Exam: General Appearance: WD/WN, no apparent distress, +anxious with mild hand tremoring Head: normocephalic, atraumatic Eyes: normal inspection, PERRL, EOMI ENT: hearing grossly normal, pharynx normal (moist mucous membranes) Neck: supple, no JVD, no adenopathy Respiratory/Chest: lungs clear to auscultation. No wheezes, rales or rhonci. No respiratory distress or accessory muscle use Cardiovascular: tachycardic, rhythm, no murmur, normal peripheral pulses Abdomen/GI: normal bowel sounds, soft, non-tender to palpation Extremities/Musculoskelatal: normal inspection, no calf tenderness, normal capillary refill, no pedal edema Neurologic/Psych: alert, anxious mood/affect, oriented x 3, moving around room during exam Skin: normal color, warm/dry Results & Data Vital Signs (Past 12 Hours) Vital Signs Temp Pulse Resp BP BP Pulse Ox Pulse Ox 02/15/19 11:01 36.4 C L 88 18 115/80 97 02/15/19 08:00 98 02/15/19 07:38 36.7 C 74 18 127/91 99 02/15/19 03:53 36.9 C 91 H 19 123/94 98 02/15/19 00:15 37.1 C 90 19 121/83 99 02/15/19 00:00 98 02/14/19 23:41 98 Laboratory Results Short CBC 02/15/19 Range/Units 06:30 WBC 5.53 (4.8-10.8) K/uL Hgb 13.6 (12.0-16.0) g/dL Hct 39.5 (37-47) % Plt Count 217 (130-400) K/uL BMP 02/15/19 02/15/19 06:30 07:34 Sodium 136 Potassium 4.3 D Chloride 105 Carbon Dioxide 26 BUN 8 Creatinine 0.65 Glucose 97 Calcium 8.9 (1) Alcohol withdrawal Complication of substance-induced condition: with unspecified complication Qualified Code(s): F10.239 - Alcohol dependence with withdrawal, unspecified
--- NOTE | 2019-02-15 12:19 | Psychiatric Consultation ---
Date of Consultation February 15, 2019 Impression / Recommendations Impression 28-year-old woman admitted with alcohol intoxication and withdrawal. Consult requested to evaluate depression. Patient readily admits that she is depressed and anxious. She has been on Prozac 20 from her PCP and agrees to increase this to 40 mg daily. She does not think that she has the money to be able to see a psychiatrist and wants to follow with her PCP for the Prozac. Her dosage may well need to be titrated up to the high and given the chronic anxiety. I have advised that she give up alcohol for the foreseeable future but she seems to believe that she can drink a little on a social basis. I have recommended against this and encouraged her to return to substance abuse treatment. She does not appear to have good insight into her alcohol abuse/dependence which does not enrique well for the future. She is not suicidal, homicidal and so therefore is not going to meet criteria for any kind of inpatient treatment. I agree with holding doxepin given the concomitant FIRER RETORT depression associated with that and alcohol use. I would furthermore avoid benzodiazepines in the future other than when in alcohol withdrawal. Inventory Assets Strengths: Wants to try to reduce drinking Needs: To abstain from alcohol Risk Factors Assessment Male: No : Yes Do You Have Access To A Gun?: Yes (Locked) Health Problems: No Mental Health Diagnoses: Yes Substance Use Disorders: Yes Previous Attempt: No Previous Psychiatric Hospitalization: No Protective Factors Assessment : No Responsible for Young Children: No Employed: Yes Stable Relationships: No Supportive Family: Yes CPT Code 44975 Psych History Identifying Data 28 yo female admitted with alcohol intoxication and withdrawal. We are consulted to evaluate depression. Information is gathered from the patient and considered to be reliable. Chief Complaint "I've been up and down. ". History of Present Illness The patient is a 28-year old woman who is admitted medically due to alcohol intoxication and withdrawal. She was previously in our hospital in October 2018 and discharged to rehab at [facility] and was released from there on November 26. She apparently resumed drinking shortly after that and admits she has been drinking 3/4 of the very large beers most days. She says that she had no alcohol for 4 days until the day of admission at which time she had 3 big drinks and ended up getting "belligerent" and she reports that her father demanded she return to the hospital. In terms of her mood, the patient states that she first became depressed about the age of 18. She did not receive treatment and it eventually went away. 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 While there her mood deteriorated with the onset of anxiety mostly related to work. 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 She was asked not to return. At that point she moved home in July 2018. 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 She admits that her mood has mostly been "down". She has a history of suicidal ideation but denies any presently. She reports sleep that has been impaired with both d ifficulty falling asleep as well as staying asleep. She had been on doxepin. She reports stable appetite with no recent weight changes. The anxiety is described as frequently having a sensation in her head that is pulselike and runs down the middle of her skull. She believes that these were symptoms of panic attacks and had these most frequently while still in [place] and has not had any since return. She admits to a history of self-injurious behaviors when she was 16 but nothing since. She denies symptoms of OCD. She has a history of eating disorders including restricting, purging and over exercising as a teenager however no longer engages in these activities. She denies discrete episodes of euphoric mood, sleeplessness or pleasure seeking behaviors that would be congruent with bipolar disorder. She has an irritable edge to her feeling like everybody else in her family has followed a predictable path in their life and they do not support her nontraditional approach. Past Psychiatric History Previous Psych History: Saw a counselor in her teens for her eating disorder Outpatient Services: Had recently been in therapy at [facility] for drug and alcohol problems Previous Psych Admissions: Denies Do You Have Access To A Gun?: Yes (Locked) History of Previous Suicide Attempt: No Past Medication Trials: Palauan equivalent of Xanax Allergies Allergy/AdvReac Type Severity Reaction Status Date / Time No Known Allergies Allergy Unverified 09/09/18 09:31 Home Medications Home Medications Medication Instructions Recorded Confirmed Type fluoxetine [Prozac] 20 mg PO DAILY 11/03/18 02/12/19 History doxepin 100 mg PO HS 02/12/19 02/12/19 History Family History Positive for cannabis abuse in father Substance Abuse History Patient admits to a history of abusing opiates but not currently. Has been drinking almost daily for the last 2 years. Currently drinking 3-4 large beers per day, starting to drink when she wakes up. Longest period of sobriety in the time has been 4 days prior to this admission and the. That she was in rehab. She has been in outpatient counseling with [facility] but does not think it is a good match and does not want to return. She does not want to return to rehab. Personal History Living Arrangements: Home (With father and grandmother) Childhood: Grew up in [place]. Parents are . Her mother took her sister and left and she remained with her father. 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[employer]) Marital Status: Beliefs That Will Affect Care: None Patient History Medical History Depression (Chronic) Elevated LFTs (Chronic) Alcohol withdrawal seizure (Resolved) Alcohol withdrawal delirium, acute, hyperactive (Resolved) Alcoholism (Chronic) Alcohol withdrawal seizure (Inactive) Social History Preferred Language: Venezuelan Communication Ability: Effective Visual Impairment: Partially Limited Visual Display Associate Required: No Beliefs That Will Affect Care: None marital status: Single marital status details: Boyfriend Current Living Situation: Family Other Information That Helps Us Care for You: No Feels Safe at Home: Yes Safety Concerns: Feels Safe At This Time Smoking Status: Current every day smoker Tobacco Type: cigarettes Do You Dip or Chew Tobacco: No Second Hand Exposure: Yes Tobacco Cessation Education Requested by Patient: Yes Hx Alcohol Use: Yes Alcohol type: beer, hard liquor and other Alcohol Intake Frequency Comment: 6-7 daily Hx Substance Use: No Physical Exam 2 Psychiatric: Orientation: alert, oriented x 3 and cooperative Apperance: + disheveled Eye Contact: good eye contact Motor Behavior: no abnormal motor movements Speech: normal rate/rhythm/volume of speech Affect: + flat affect and + tearful affect Mood: + depressed mood and + anxious mood Thought Process: goal directed thought process Thought Content: reality based without delusions Suicidal Thoughts: denies suicidal thoughts Homicidal Thoughts: denies homicidal thoughts Hallucinations: no auditory hallucinations and no visual hallucinations Cognition: recent memory grossly intact, remote memory grossly intact, attention grossly intact and language grossly intact Estimated Intelligence: consistent with education level Insight: + limited insight Judgement: + limited judgement Vital Signs (Past 24 Hours): Last Vital Signs Temp 36.4 C L 02/15/19 11:01 Pulse 88 02/15/19 11:01 Resp 18 02/15/19 11:01 BP 115/80 02/15/19 11:01 Pulse Ox 97 02/15/19 11:01 Results & Data Medications Administered Folic Acid (Folvite) 400 mcg PO QAM URSS Stop: 03/15/19 08:59 Last Admin: 02/15/19 08:16 Dose: 400 mcg Documented by: [id number] Admin: 02/14/19 07:58 Dose: 400 mcg Documented by: [id number] Admin: 02/13/19 08:25 Dose: 400 mcg Documented by: [id number] Lorazepam (Ativan) 0.5 mg in 1 mls @ 1 mls/min IV Q4H PRN PRN Reason: Anxiety Stop: 03/16/19 09:46 Last Admin: 02/14/19 23:15 Dose: 1 mls/min Documented by: [id number] Admin: 02/14/19 10:35 Dose: 1 mls/min Documented by: [id number] Potassium Chloride/Sodium Chloride (Normal Saline W/20 Meq Kcl) 20 meq in 1,000 mls @ 80 mls/hr IV .[id number] [facility] Stop: 03/16/19 10:29 Last Admin: 02/15/19 03:59 Dose: 80 mls/hr Documented by: [id number] Infusion: 02/15/19 00:47 Dose: 80 mls/hr Documented by: [id number] Admin: 02/14/19 12:17 Dose: 80 mls/hr Documented by: [id number] Miscellaneous (Remove Nicoderm Patch) 1 ea N/A HS [facility] Stop: 03/15/19 20:59 Last Admin: 02/14/19 20:36 Dose: 1 ea Documented by: [id number] Admin: 02/13/19 21:44 Dose: Not Given Documented by: [id number] Multivitamins (Multivitamin Tab) 1 tab PO QAM [facility] Stop: 03/15/19 08:59 Last Admin: 02/15/19 08:16 Dose: 1 tab Documented by: [id number] Admin: 02/14/19 07:58 Dose: 1 tab Documented by: [id number] Admin: 02/13/19 08:25 Dose: 1 tab Documented by: [id number] Nicotine (Nicoderm Cq) 21 mg TD [facility] Stop: 03/15/19 16:59 Last Admin: 02/15/19 08:15 Dose: 21 mg Documented by: [id number] Admin: 02/14/19 07:58 Dose: 21 mg Documented by: [id number] Admin: 02/13/19 18:20 Dose: 21 mg Documented by: [id number] Thiamine HCl (Vitamin B-1) 100 mg PO [facility] Stop: 03/14/19 16:02 Last Admin: 02/15/19 08:16 Dose: 100 mg Documented by: [id number] Admin: 02/14/19 07:58 Dose: 100 mg Documented by: [id number] Admin: 02/13/19 08:25 Dose: 100 mg Documented by: [id number] Admin: 02/12/19 18:04 Dose: 100 mg Documented by: [id number]
[2019-02-15] MEDS: LORazepam 0.5 MG/1 ML VIAL IV PRN (21:48)
[2019-02-16] MEDS ORDERED: GABAPENTIN 600 MG TAB PO SCH (06:00)
[2019-02-16] MEDS ORDERED: FLUOXETINE HCL 20 MG CAP PO SCH (09:00)
--- NOTE | 2019-02-18 11:45 | Discharge Summary ---
Date of Service February 18, 2019 Admission HPI Per Admitting Provider The patient is a 28-year old woman who is admitted medically due to alcohol intoxication and withdrawal. She was previously in our hospital in October 2018 and discharged to rehab at [facility] and was released from there on November 26. She apparently resumed drinking shortly after that and admits she has been drinking 3/4 of the very large beers most days. She says that she had no alcohol for 4 days until the day of admission at which time she had 3 big drinks and ended up getting "belligerent" and she reports that her father demanded she return to the hospital. In terms of her mood, the patient states that she first became depressed about the age of 18. She did not receive treatment and it eventually went away. 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 She was asked not to return. At that point she moved home in July 2018. 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 She admits that her mood has mostly been "down". She has a history of suicidal ideation but denies any presently. She reports sleep that has been impaired with both diffi culty falling asleep as well as staying asleep. She had been on doxepin. She reports stable appetite with no recent weight changes. The anxiety is described as frequently having a sensation in her head that is pulselike and runs down the middle of her skull. She believes that these were symptoms of panic attacks and had these most frequently while still in [place] and has not had any since return. She admits to a history of self-injurious behaviors when she was 16 but nothing since. She denies symptoms of OCD. She has a history of eating disorders including restricting, purging and over exercising as a teenager however no longer engages in these activities. She denies discrete episodes of euphoric mood, sleeplessness or pleasure seeking behaviors that would be congruent with bipolar disorder. She has an irritable edge to her feeling like everybody else in her family has followed a predictable path in their life and they do not support her nontraditional approach. Admission Exam Per Admitting Provider General: no acute distress, WDWN Head: normocephalic, atraumatic Eyes: PERRL, EOM's intact, conjunctiva non-injected, anicteric ENT: normal inspection external ears, nose, mucous membranes moist Neck: supple, trachea midline, non-tender Lungs: clear, no respiratory distress, no wheezing/rhonchi/rales CV: RRR, no murmur, no JVD, no pretibial edema Abd: normal BS, soft, non-tender Ext: no cyanosis, no calf tenderness Neuro: A&O x 3, pt easily distracted, talks off topic, no focal deficits noted, mildly flat affect Skin: warm, dry Principal Diagnosis ALCOHOL WITHDRAWAL Discharge Exam not performed, patient signed out AMA Discharge Data Allergies Allergy/AdvReac Type Severity Reaction Status Date / Time No Known Allergies Allergy Unverified 09/09/18 09:31 Consultations 02/12/19 13:50 ED Decision to Admit Stat 02/12/19 16:03 Consult Case Management - Discharge Planning Routine 02/15/19 10:16 Consult Psychiatry Routine Hospital Course (1) Alcohol withdrawal: This is a 28yo F with a PMH of alcohol use disorder, h/o alcohol withdrawal seizure and delirium, tobacco use who presented to ER with ETOH intoxication, having visual hallucination with ETOH level of 344. placed on Gabapentin protocol no overt signs of withdrawal noted -Discussed inpatient and outpatient rehab options, but patient is not interested in either at this time -Alcohol cessation encouraged. 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
--- OUTSIDE RECORDS SUMMARY | 2019-02-18 16:22 | External Medical Summary | Continuity of Care Document ---
:1990 Author Name Azucena Beck Address Unavailable Unavailable , Care Team Providers Name Role Phone [facility] [email or web address] Unavailable [email or web address] [email or web address], UNKNOWN Unavailable Unavailable Problems Active medical history not documented Allergies and Adverse Reactions Allergy history not documented Medications Medications not documented Procedures Procedures not documented Immunizations Immunizations not documented Plan of Treatment Planned Observations Planned Goals not documented Results No Known Results Results not documented
== END 2019-02-16 02:45 | disposition left against medical advice (07) | DRG 894 ==
LOC: ED 10:09 → 2S 14:30

== ENCOUNTER 2019-03-11 19:13 | Inpatient (IN) ==
[2019-03-11] MEDS ORDERED: MULTI-VITAMIN INFUSION 10 ML, THIAMINE HCL 100 MG, FOLIC ACID 1 MG in SODIUM CHLORIDE 0... IV SCH (19:45)
--- NOTE | 2019-03-11 19:53 | Emergency Department Note ---
History of Present Illness General Chief complaint: Detox Request Stated complaint: ALCOHOL DETOX Time Seen by Provider: 03/11/19 19:25 History of Present Illness This is a 28-year-old female who presents to the emergency department with her father with request of alcohol detox. The patient reports drinking at least 4 "big malt drinks" daily. Her last drink was 1 day ago. She currently has no complaints. She denies any headache. No chest pain or shortness of breath. No recent injury. The patient does have a history of withdrawal seizures. She currently denies any other drug use. The patient does admit to suicidal ideation. She said that "the world may be better without her." She denies any plan. No homicidal thoughts. Home Medications Home Medications Medication Instructions Recorded Confirmed Type fluoxetine [Prozac] 20 mg PO DAILY 11/03/18 03/11/19 History hydroxyzine HCl 25 mg PO QID PRN 03/11/19 03/11/19 History naltrexone 50 mg PO DAILY 03/11/19 03/11/19 History topiramate [Topamax] 25 mg PO DAILY 03/11/19 03/11/19 History Allergies Allergy/AdvReac Type Severity Reaction Status Date / Time No Known Allergies Allergy Unverified 09/09/18 09:31 Past Med/Surg History Medical History Tobacco use (Chronic) Depression (Chronic) Elevated LFTs (Chronic) Alcohol withdrawal seizure (Resolved) Alcoholism (Chronic) Alcohol withdrawal seizure (Inactive) Family History Mother Diabetes Social History Preferred Language: Congolese Communication Ability: Effective Visual Impairment: Partially Limited Beliefs That Will Affect Care: None marital status: Single marital status details: Boyfriend Current Living Situation: Family Feels Safe at Home: No Is there a partner from a previous relationship who is making you feel unsafe now?: No Smoking Status: Current every day smoker Tobacco Type: cigarettes Second Hand Exposure: Yes Hx Alcohol Use: Yes Alcohol type: beer, hard liquor and other Alcohol Intake Frequency Comment: 6-7 daily Hx Substance Use: No Review of Systems A total of 10 systems reviewed and were otherwise negative Physical Exam Vital Signs Vital Signs - 24 hr 03/11/19 19:19 03/11/19 20:17 03/11/19 22:02 Temperature 37 C Temperature Source Oral Sepsis Recent Fever Within 48 Hours No Sepsis New/Unexplained Change in Mental Status No Sepsis Action Taken by Nursing No Action Required Pulse Rate 140 H Pulse Rate [Apical] 112 H Respiratory Rate 18 20 Respiratory Effort / Characteristics Non-Labored Respiratory Depth Normal Blood Pressure 124/85 Blood Pressure [Left Arm] 125/83 125/74 Blood Pressure Mean 98 Blood Pressure Mean [Left Arm] 97 91 Pulse Oximetry 97 98 Oxygen Delivery Method Room Air 03/11/19 22:10 03/11/19 23:03 Temperature Temperature Source Sepsis Recent Fever Within 48 Hours Sepsis New/Unexplained Change in Mental Status Sepsis Action Taken by Nursing Pulse Rate Pulse Rate [Apical] 111 H 105 H Respiratory Rate 18 18 Respiratory Effort / Characteristics Non-Labored Spontaneous Respiratory Depth Normal Normal Blood Pressure Blood Pressure [Left Arm] 125/74 148/108 H Blood Pressure Mean Blood Pressure Mean [Left Arm] 91 121 Pulse Oximetry 98 98 Oxygen Delivery Method Room Air Room Air Constitutional WD/WN, vitals as above Eyes EOM intact bilaterally Pupils slightly unequal but reactive. Horizontal nystagmus noted. ENMT external ear and nose normal, oropharynx normal (Oral mucosa dry.) Neck trachea midline Respiratory normal respiratory effort, lungs clear to auscultation Cardiovascular Rate/Rhythm: regular rhythm and + tachycardic Gastrointestinal (Abdomen) normal bowel sounds, soft, nontender, no hepatosplenomegaly Musculoskeletal no cyanosis or clubbing, extremities motor strength 5/5 Skin no rashes, warm and dry Neurologic Appears intoxicated. Answering questions appropriately alert and oriented x3. Psychiatric Intoxicated Course Patient was seen and examined Vital signs including blood pressure were reviewed medications list was verified with patient Labs were obtained, and a saline lock was established And EKG was done and reviewed. The patient was put on a monitor. She was order ed a banana bag. Labs were reviewed. The patient was ordered KCl 20 mEq IV. The case was discussed with my supervising physician who is in agreement with my plan I discussed the case with case management and subsequently the [facility] service. They kindly agreed to evaluate the patient for possible inpatient management. The patient and the patient's father are in agreement. Consultations Consultation #1: [facility] service Administered Medications Potassium Phosphate 24 mmol/ (Sodium Chloride) 508 mls @ 127 mls/hr IV TODAY@2145 ONE Stop: 03/12/19 01:44 Last Admin: 03/11/19 22:02 Dose: 127 mls/hr Documented by: [id number] Discontinued Medications Multivitamins 10 ml/ Thiamine HCl 100 mg/ Folic Acid 1 mg/Sodium Chloride 1,011.2 mls @ 1,011.2 mls/hr IV .Q1H RUSS Stop: 03/11/19 20:44 Last Infusion: 03/11/19 21:44 Dose: 0 mls/hr Documented by: [id number] Admin: 03/11/19 20:10 Dose: 1,011.2 mls/hr Documented by: [id number] Medical Decision Making Medical Records Attestation: I reviewed the patient's medical records. Laboratory Data Attestation: I reviewed the patient's lab results. Result diagrams: 03/11/19 19:54 03/11/19 19:54 Lab Results 03/11/19 03/11/19 03/11/19 Range/Units 19:54 19:54 19:54 WBC 3.50 L (4.8-10.8) K/uL RBC 3.81 L (4.2-5.4) M/uL Hgb 13.9 (12.0-16.0) g/dL Hct 39.0 (37-47) % MCV 102.4 H (80-100) fL MCH 36.5 H (25-34) pg MCHC 35.6 (32-36) g/dL RDW Std Deviation 54.7 H (36.4-46.3) fL RDW Coeff of Vinod 14.7 H (11.5-14.5) % Plt Count 217 (130-400) K/uL MPV 9.4 (7.4-10.4) fL Immature Gran % (Auto) 0.3 % Neut % (Auto) 46.9 % Lymph % (Auto) 37.1 % [place] % (Auto) 15.1 % Eos % (Auto) 0.0 % Baso % (Auto) 0.6 % Immature Gran # (Auto) 0.01 (0.00-0.02) K/uL Neut # (Auto) 1.64 (1.4-6.5) K/uL Lymph # (Auto) 1.30 (1.2-3.4) K/uL [place] # (Auto) 0.53 (0.11-0.59) K/uL Eos # (Auto) 0.00 (0-0.5) K/uL Baso # (Auto) 0.02 (0-0.2) K/uL Sodium 141 (136-145) mmol/L Potassium 2.9 L (3.5-5.1) mmol/L Chloride 107 (98-107) mmol/L Carbon Dioxide 20 L (21-32) mmol/L Anion Gap 14.0 H (3-11) BUN 5 L (7-18) mg/dl Creatinine 1.01 (0.6-1.2) mg/dl Est Cr Clr Drug Dosing 72.9 ml/min Est GFR ( Amer) 89.0 Est GFR (Non-Af Amer) 76.8 BUN/Creatinine Ratio 4.7 L (10-20) Glucose 144 H (70-99) mg/dl Calcium 8.9 (8.5-10.1) mg/dl Phosphorus 0.8 L* (2.5-4.9) mg/dl Magnesium 2.1 (1.8-2.4) mg/dl Total Bilirubin 0.3 (0.2-1) mg/dl AST 60 H (15-37) U/L ALT 31 (12-78) U/L Alkaline Phosphatase 79 (45-117) U/L Total Protein 7.9 (6.4-8.2) gm/dl Albumin 3.8 (3.4-5.0) gm/dl Globulin 4.1 H (2.5-4.0) gm/dl Albumin/Globulin Ratio 0.9 (0.9-2) Lipase 255 (73-393) U/L TSH 0.920 (0.300-4.500) uIu/ml HCG, Qual (Negative) Urine Color Urine Appearance (Clear) Urine pH (4.5-7.5) Ur Specific [place] (1.000-1.030) Urine Protein (Negative) Urine Glucose (UA) (Negative) Urine Ketones (Negative) Urine Blood (Negative) Urine Nitrite (Negative) Urine Bilirubin (Negative) Urine Urobilinogen (Negative) Ur Leukocyte Esterase (Negative) Urine WBC (Auto) (0-5) /hpf Urine RBC (Auto) (0-4) /hpf U Hyaline Cast (Auto) (0-5) /lpf U Epithel Cells (Auto) (0-5) /lpf Urine Bacteria (Auto) (Negative) Urine Opiates Screen (Neg) Ur Methadone, Qual (Neg) Urine Barbiturates (Neg) Ur Phencyclidine (PCP) (Neg) U Amphetamin/Meth Scrn (Neg) MDMA (Ecstasy) Screen (Neg) U Benzodiazepines Scrn (Neg) Ur Cocaine Metabolite (Neg) U Marijuana (THC) Screen (Neg) Ethyl Alcohol mg/dL 320.0 H (0-3) mg/dl 03/11/19 03/11/19 03/11/19 Range/Units 19:54 22:06 22:06 WBC (4.8-10.8) K/uL RBC (4.2-5.4) M/uL Hgb (12.0-16.0) g/dL Hct (37-47) % MCV (80-100) fL MCH (25-34) pg MCHC (32-36) g/dL RDW Std Deviation (36.4-46.3) fL RDW Coeff of Vinod (11.5-14.5) % Plt Count (130-400) K/uL MPV (7.4-10.4) fL Immature Gran % (Auto) % Neut % (Auto) % Lymph % (Auto) % [place] % (Auto) % Eos % (Auto) % Baso % (Auto) % Immature Gran # (Auto) (0.00-0.02) K/uL Neut # (Auto) (1.4-6.5) K/uL Lymph # (Auto) (1.2-3.4) K/uL [place] # (Auto) (0.11-0.59) K/uL Eos # (Auto) (0-0.5) K/uL Baso # (Auto) (0-0.2) K/uL Sodium (136-145) mmol/L Potassium (3.5-5.1) mmol/L Chloride (98-107) mmol/L Carbon Dioxide (21-32) mmol/L Anion Gap (3-11) BUN (7-18) mg/dl Creatinine (0.6-1.2) mg/dl Est Cr Clr Drug Dosing ml/min Est GFR ( Amer) Est GFR (Non-Af Amer) BUN/Creatinine Ratio (10-20) Glucose (70-99) mg/dl Calcium (8.5-10.1) mg/dl Phosphorus (2.5-4.9) mg/dl Magnesium (1.8-2.4) mg/dl Total Bilirubin (0.2-1) mg/dl AST (15-37) U/L ALT (12-78) U/L Alkaline Phosphatase (45-117) U/L Total Protein (6.4-8.2) gm/dl Albumin (3.4-5.0) gm/dl Globulin (2.5-4.0) gm/dl Albumin/Globulin Ratio (0.9-2) Lipase (73-393) U/L TSH (0.300-4.500) uIu/ml HCG, Qual Negative (Negative) Urine Color Yellow Urine Appearance Cloudy A (Clear) Urine pH 5.5 (4.5-7.5) Ur Specific [place] 1.018 (1.000-1.030) Urine Protein Negative (Negative) Urine Glucose (UA) Negative (Negative) Urine Ketones Negative (Negative) Urine Blood Negative (Negative) Urine Nitrite Negative (Negative) Urine Bilirubin Negative (Negative) Urine Urobilinogen Negative (Negative) Ur Leukocyte Esterase Negative (Negative) Urine WBC (Auto) 1-5 (0-5) /hpf Urine RBC (Auto) 0-4 (0-4) /hpf U Hyaline Cast (Auto) 1-5 (0-5) /lpf U Epithel Cells (Auto) >30 H (0-5) /lpf Urine Bacteria (Auto) 1+ H (Negative) Urine Opiates Screen Neg (Neg) Ur Methadone, Qual Neg (Neg) Urine Barbiturates Neg (Neg) Ur Phencyclidine (PCP) Neg (Neg) U Amphetamin/Meth Scrn Neg (Neg) MDMA (Ecstasy) Screen Neg (Neg) U Benzodiazepines Scrn Neg (Neg) Ur Cocaine Metabolite Neg (Neg) U Marijuana (THC) Screen Neg (Neg) Ethyl Alcohol mg/dL (0-3) mg/dl Blood Pressure Blood Pressure Findings: Normal blood pressure MDM Narrative Differential diagnosis: Alcohol intoxication, withdrawal, DTs, electrolyte abnormality, psychiatric disorder, other drug use, among others This patient is a 28-year-old female presents to the emergency department with request of alcohol detoxification. On exam, she was clearly intoxicated. She was tachycardic. Her labs reveal significant electrolyte abnormalities and an elevated alcohol level. EKG was consistent with sinus tachycardia. For these reasons, I do not feel the patient was safe to be discharged home. The [facility] service was consulted. They agreed to admit the patient to the hospital for further management. Impression & Plan Alcohol intoxication Discharge Plan Visit Data Chief Complaint: Detox Request Stated Complaint: ALCOHOL DETOX ED Provider: Jd Perdue ED Midlevel Provider: Juanita Lazo Discharge Problem: Alcohol intoxication Patient Disposition: Admitted As Inpatient Condition: Fair Discharge Instructions Interventions: ED Discharge Assessment Last Done: 03/11/19 23:05 Forms Stand Alone Forms: LiveRe Prescriptions Prescriptions: No Action naltrexone 50 mg Tablet 50 mg PO DAILY RF: 0 topiramate [Topamax] 25 mg Tablet 25 mg PO DAILY RF: 0 hydroxyzine HCl 25 mg Tablet 25 mg PO QID PRN (Reason: Anxiety) RF: 0 fluoxetine [Prozac] 20 mg capsule 20 mg PO DAILY RF: 0 Referrals Referrals: Stephenie Sandoval MD [Primary Care Provider] - Discharge Problem: Alcohol intoxication Qualifiers: Complication of substance-induced condition: with unspecified complication Qualified Code(s): F10.929 - Alcohol use, unspecified with intoxication, unspecified
[2019-03-11 20:12] LABS: Basophils # (auto) 0.02 K/uL (0-0.2); Basophils % (auto) 0.6 %; Hemoglobin 13.9 g/dL (12.0-16.0); Immature Granulocytes # (auto) 0.01 K/uL (0.00-0.02); Immature Granulocytes % (auto) 0.3 %; Lymphocytes % (auto) 37.1 %; Mean Corpuscular Hgb Conc 35.6 g/dL (32-36); Mean Corpuscular Volume 102.4 fL (80-100); Mean Platelet Volume 9.4 fL (7.4-10.4); Monocytes # (auto) 0.53 K/uL (0.11-0.59); Monocytes % (auto) 15.1 %; Neutrophils # (auto) 1.64 K/uL (1.4-6.5); Neutrophils % (auto) 46.9 %; Platelet Count 217 K/uL (130-400); RDW Coefficient of Variation 14.7 % (11.5-14.5); RDW Standard Deviation 54.7 fL (36.4-46.3); Red Blood Count 3.81 M/uL (4.2-5.4)
[2019-03-11 20:26] LABS: Pregnancy Test, Serum Negative (Negative)
[2019-03-11 20:36] LABS: Albumin Level 3.8 gm/dl (3.4-5.0); BUN Creatinine Ratio 4.7 (10-20); Calcium 8.9 mg/dl (8.5-10.1); Creatinine Clr Calc Pharmacy 72.9 ml/min; Est GFR (Non-African American) 76.8; Magnesium 2.1 mg/dl (1.8-2.4); Potassium 2.9 mmol/L (3.5-5.1)
[2019-03-11 21:05] LABS: Albumin Globulin Ratio 0.9 (0.9-2); Bilirubin,Total 0.3 mg/dl (0.2-1); Globulin 4.1 gm/dl (2.5-4.0); Phosphorus 0.8 mg/dl (2.5-4.9); Total Protein 7.9 gm/dl (6.4-8.2)
[2019-03-11] MEDS ORDERED: POTASSIUM CHLORIDE / WTR 20 MEQ/100 ML PLCT IV ONE (21:09)
[2019-03-11] MEDS ORDERED: POTASSIUM PHOS 3 MMOL/1 ML INFUSION IV STA (21:25)
[2019-03-11] MEDS ORDERED: POTASSIUM PHOSPHATE 24 MMOL in SODIUM CHLORIDE 0.9% 500 ML IV ONE (21:45)
[2019-03-11 22:18] LABS: Appearance Urine Cloudy (Clear); Bacteria Urine Automated 1+ (Negative); Bilirubin Urine Negative (Negative); Color Urine Yellow; Epithelial Cell Urine Auto >30 /lpf (0-5); Glucose Urine UA Negative (Negative); Ketones Urine Negative (Negative); Leukocyte Esterase Urine Negative (Negative); Nitrite Urine Negative (Negative); Protein Urine Negative (Negative); Specific Gravity Urine 1.018 (1.000-1.030); Urobilinogen Urine Negative (Negative); pH Urine 5.5 (4.5-7.5)
--- NOTE | 2019-03-11 22:25 | History & Physical Report ---
Date of Service March 11, 2019 Assessment & Plan (1) Alcohol intoxication: -Admit to telemetry -Patient presenting from home for evaluation of alcohol intoxication -Patient with long history of alcohol abuse, most recently being admitted to [facility] 02/12 through 02/16 for management of alcohol intoxication and withdrawal however patient signed out AMA -Since most recent admission, patient reports several episodes of drinking 3 to 4 days in a row and then stopping -Received banana bag in the ED, will continue with -Gabapentin per alcohol withdrawal protocol -Patient currently refusing all doses of Ativan as it "makes me crazy" -Recently started on naltrexone and Topamax by PCP, will continue -Case management consult for possible placement to inpatient rehab (2) Hypokalemia: (3) Hypophosphatemia: -Replace, follow electrolytes (4) Depression: -Continue fluoxetine (5) DVT prophylaxis: -SCDs, ambulate History of Present Illness Chief Complaint: Alcohol intoxication Primary Care Provider: Stephenie Simmons MD 28-year-old female who presents the ED with alcohol intoxication. Patient has a long-standing history of alcohol abuse and was most recently admitted to [facility] 02/12 through 02/16 for alcohol intoxication and withdrawal. Patient signed out AMA from that admission. She reports that she received a dose of Ativan and it " did not agree with me and made me go crazy". She subsequently pulled out her own IV and left the hospital and was picked up by police and returned home to her father. Since returning home, patient reports she has had multiple episodes where she would drink 3 to 4 days in a row and then would stop. No alcohol withdrawal seizures. She reports she typically drinks very large, fruity drinks. Patient was seen by her PCP and she was placed on naltrexone and Topamax. Patient does feel as though the naltrexone is helping with her cravings a little bit. 2 nights ago, patient was found passed out in the back room at work. EMS and police were called however patient denied medical evaluation at that time. Patient reports she chronically suffers with depression. She reports she constantly has suicidal thoughts however does not have a plan or attempts.. No homicidal thoughts or plans. Patient is noted to have faint bruising over her right submandibular area. When asked about this, she tells me "you do not need to worry about that ." Patient reports a very poor appetite. Denies abdominal pain, nausea, vomiting, diarrhea. No other recent illnesses, fevers, chills. She denies chest pain shortness of breath. No lightheadedness, dizziness, diaphoresis, syncopal events. No urinary symptoms. In the ED, patient was found to have a blood alcohol level of 320. Electrolyte abnormalities including potassium 2.9 and phosphorus 0.8. Patient was given b anana bag, IV potassium replacement, IV K-Phos replacement. Allergies Allergy/AdvReac Type Severity Reaction Status Date / Time No Known Allergies Allergy Unverified 09/09/18 09:31 Home Medications Home Medications Medication Instructions Recorded Confirmed Type fluoxetine [Prozac] 20 mg PO DAILY 11/03/18 03/11/19 History hydroxyzine HCl 25 mg PO QID PRN 03/11/19 03/11/19 History naltrexone 50 mg PO DAILY 03/11/19 03/11/19 History topiramate [Topamax] 25 mg PO DAILY 03/11/19 03/11/19 History Past Med/Surg History Medical History Tobacco use (Chronic) Depression (Chronic) Elevated LFTs (Chronic) Alcohol withdrawal seizure (Resolved) Alcoholism (Chronic) Alcohol withdrawal seizure (Inactive) Family History Mother Diabetes Social History Preferred Language: Paraguayan Communication Ability: Effective Visual Impairment: Partially Limited Electrical Contacts Adjuster Required: No Beliefs That Will Affect Care: None marital status: Single marital status details: Boyfriend Current Living Situation: Family Current Living Situation Comment: lives with father Other Information That Helps Us Care for You: No Feels Safe at Home: No Is there a partner from a previous relationship who is making you feel unsafe now?: No Safety Concerns: Afraid for Self Smoking Status: Current every day smoker Tobacco Type: cigarettes Cigarettes Per Day: 2-20 Second Hand Exposure: Yes Tobacco Cessation Education Requested by Patient: No Hx Alcohol Use: Yes Alcohol type: beer and hard liquor Alcohol Intake Frequency Comment: 6-7 daily Hx Substance Use: Yes substance use type: does not use Review of Systems Review of Systems: ROS per HPI, all other systems reviewed and negative Physical Exam 2 Constitutional: WD/WN, vitals as above Eyes: PERRL, conjunctivae normal, anicteric sclerae ENMT: external ear and nose normal, oropharynx normal Respiratory: normal respiratory effort, lungs clear to auscultation Cardiovascular: Rate/Rhythm: regular rhythm and + tachycardic Vessels: normal peripheral pulses Extremities: no edema Gastrointestinal (Abdomen): normal bowel sounds, soft, nontender, no hepatosplenomegaly Musculoskeletal: no cyanosis or clubbing, extremities motor strength 5/5 Skin: no rashes, warm and dry Neurologic: PERRL, EOMI, accommodation nl, no face palsy, no dysarthria Psychiatric: A+Ox3, euthymic affect Results & Data Vital Signs (Past 12 Hours) Vital Signs Temp Pulse Pulse Resp BP BP Pulse Ox 03/11/19 22:10 111 H 18 125/74 98 03/11/19 22:02 125/74 03/11/19 20:17 112 H 20 125/83 98 03/11/19 19:19 37 C 140 H 18 124/85 97 Laboratory Results Short CBC 03/11/19 Range/Units 19:54 WBC 3.50 L (4.8-10.8) K/uL Hgb 13.9 (12.0-16.0) g/dL Hct 39.0 (37-47) % Plt Count 217 (130-400) K/uL BMP 03/11/19 19:54 Sodium 141 Potassium 2.9 L Chloride 107 Carbon Dioxide 20 L BUN 5 L Creatinine 1.01 Glucose 144 H Calcium 8.9 Liver Function 03/11/19 Range/Units 19:54 Total Bilirubin 0.3 (0.2-1) mg/dl AST 60 H (15-37) U/L ALT 31 (12-78) U/L Alkaline Phosphatase 79 (45-117) U/L Albumin 3.8 (3.4-5.0) gm/dl Urine 03/11/19 Range/Units 22:06 Urine Color Yellow Urine Appearance Cloudy A (Clear) Urine pH 5.5 (4.5-7.5) Ur Specific [place] 1.018 (1.000-1.030) Urine Protein Negative (Negative) Urine Glucose (UA) Negative (Negative) Code Status & VTE Plan VTE Prophylaxis Plan VTE Prophylaxis will be ordered: Yes Supervising Physician Co-Signing Physician Notes Care coordinated with KENA Carter. Agree with above note. Patient seen and examined. Please refer to her notes for full details. Vital signs reviewed. Physical exam: General exam: Alert and oriented. Not in acute distress. CVS: S1 and S2 heard, regular rate and rhythm, no murmurs. RS: Clear to auscultation, no wheezing or crackles. ABD: Soft, bowel sounds present, nontender, no distention. SIGNALER: Nonfocal. EXT: No edema, no erythema. Labs: Reviewed. Assessment and plan: Alcoholism request for detox started on gabapentin protocol banana bag thiamine and mvi daily patient doesn't want ativan Ok to try librium or valium if needed can try pheobarbital if needed. Electrolyte abnormalities will replace followup labs Other diagnosis and plan of care as per Lalita Gay.. Alex armas MD.
[2019-03-11 22:42] LABS: Amphetamines+Metham, Urine Neg (Neg); Barbiturates, Urine Neg (Neg); Benzodiazepine, Urine Neg (Neg); Cocaine, Urine Neg (Neg); MDMA (Ecstacy), Urine Neg (Neg); Methadone, Urine Neg (Neg); Opiate, Urine Neg (Neg); Phencyclidine, Urine Neg (Neg)
[2019-03-11] MEDS ORDERED: GABAPENTIN 1200MG ALCOHOL WITHDRAWAL LOAD PO STA (23:33)
[2019-03-11] MEDS ORDERED: SODIUM CHLORIDE 0.9% 1000ML 1,000 ML IV SCH (23:33)
[2019-03-11] MEDS ORDERED: GABAPENTIN 600 MG TAB PO SCH (23:45)
[2019-03-12] MEDS: POTASSIUM CHLORIDE / WTR 10 MEQ/100 ML PLCT IV SCH ×2 (00:34→01:49)
[2019-03-12] MEDS ORDERED: POTASSIUM CHLORIDE 10 MEQ TABCR PO STA (01:45)
[2019-03-12] MEDS ORDERED: ONDANSETRON INJ 2 MG/ML 2 ML VIAL IV PRN (05:56)
[2019-03-12] MEDS: GABAPENTIN 600 MG TAB PO SCH ×2 (06:46→13:12)
[2019-03-12 06:48] LABS: Hematocrit (blood only) 36.5 % (37-47); Hemoglobin 12.6 g/dL (12.0-16.0); Mean Corpuscular Hgb Conc 34.5 g/dL (32-36); Mean Corpuscular Volume 103.7 fL (80-100); Mean Platelet Volume 9.3 fL (7.4-10.4); Platelet Count 170 K/uL (130-400); RDW Coefficient of Variation 14.9 % (11.5-14.5); RDW Standard Deviation 55.7 fL (36.4-46.3); Red Blood Count 3.52 M/uL (4.2-5.4); White Blood Count 4.18 K/uL (4.8-10.8)
[2019-03-12 07:26] LABS: BUN Creatinine Ratio 3.9 (10-20); Calcium 7.4 mg/dl (8.5-10.1); Creatinine Clr Calc Pharmacy 113.3 ml/min; Est GFR (Non-African American) 122.5; Magnesium 1.2 mg/dl (1.8-2.4); Phosphorus 2.1 mg/dl (2.5-4.9); Potassium 3.7 mmol/L (3.5-5.1)
--- NOTE | 2019-03-12 08:16 | Hospitalist Progress Note ---
Date of Service March 12, 2019 Assessment & Plan (1) Alcohol intoxication: -Patient presenting from home for evaluation of alcohol intoxication on 03/11/19; Patient with long history of alcohol abuse, most recently being admitted to [facility] 02/12 through 02/16 for management of alcohol intoxication and withdrawalfor which patient signed out AMA at the time; Since most recent admission, patient reports several episodes of drinking 3 to 4 days in a row and then stopping -patient received banana bag which includes vitamins, folic acid and thiamine in the ED on 03/11/19, continue as daily for now -continue Gabapentin per alcohol withdrawal protocol; patient not wanting ativan because she associates ativan with more delirium in the past -left upper extremity tremors may be from alcohol withdrawal versus electrolyte abnormalities -Recently started on naltrexone and Topamax by PCP, will continue (2) Hypokalemia: -serum potassium 2.9 on admission -after potassium repletions, the serum potassium is 3.7, continue to trend and replete as needed Hypomagnesemia -serum magnesium 1.2 on 03/12/19; will give IV magnesium 1 gram x 3 and start oral magnesium magnesium BID; will recheck serum magnesium levels and replete as needed -will check serum phosphate levels (3) Hypophosphatemia: -admission serum phosphate 0.8 - after repletion serum phosphate is now 2.1 -will give additional IV phosphorous supplements and recheck (4) Depression: -Continue home dose fluoxetine which is 40 mg daily -continue home dose doxepin 100 mg qhs (5) DVT prophylaxis: -SCDs, ambulate Subjective Patient seen and examined at bedside. She confirmed history of excessive alcohol ingestion. she is awake and alert and mildly tachycardic in sinus rhythm in the low 100s. Patient with left hand tremors which she reports she has not had in a long time. Patient otherwise moves extremities very well. 1 episode of vomiting today. currently getting magnesium IV because serum magnesium was very low as 1.2. Patient denies headache of dizziness. speaking well. denies chest pain or shortness of breath. denies abdominal pain. denies pains of extremities. Physical Exam Constitutional: WD/WN, vitals as above Eyes: PERRL, conjunctivae normal, anicteric sclerae EOM intact bilaterally ENMT: external ear and nose normal, oropharynx normal Neck: trachea midline, no thyromegaly normal visual inspection Respiratory: normal respiratory effort, lungs clear to auscultation Cardiovascular: Rate/Rhythm: regular rhythm and + tachycardic (low 100 bpm) Gastrointestinal (Abdomen): normal bowel sounds, soft, nontender, no hepatosplenomegaly Musculoskeletal: no cyanosis or clubbing, extremities motor strength 5/5 Head/Neck/Chest: normocephalic and head atraumatic Neurologic: PERRL, EOMI, accommodation nl, no face palsy, no dysarthria CN's II-XI intact bilaterally and moves all extremities Motor/Sensory: + tremor (left hand tremors) Psychiatric: A+Ox3, euthymic affect Results & Data Vital Signs (Past 12 Hours) Vital Signs Temp Pulse Pulse Resp BP BP Pulse Ox 03/12/19 07:01 36.8 C 80 17 131/90 97 03/12/19 03:43 36.7 C 87 16 134/94 97 03/12/19 00:05 88 03/11/19 23:23 37 C 100 H 16 136/95 97 03/11/19 23:03 105 H 18 148/108 H 98 03/11/19 22:10 111 H 18 125/74 98 03/11/19 22:02 125/74 03/11/19 20:17 112 H 20 125/83 98 (1) Alcohol intoxication Complication of substance-induced condition: with unspecified complication Qualified Code(s): F10.929 - Alcohol use, unspecified with intoxication, unspecified
[2019-03-12] MEDS: MAGNESIUM OXIDE 400 MG TAB PO SCH ×2 (08:17→20:39)
[2019-03-12] MEDS: MAGNESIUM SULFATE / D5W 1 GM/100 ML BAG IV SCH ×3 (08:17→10:29)
[2019-03-12] MEDS: TOPIRAMATE 25 MG TAB PO SCH (08:19)
[2019-03-12] MEDS: NALTREXONE HCL 50 MG TAB PO SCH (08:19)
[2019-03-12] MEDS ORDERED: POTASSIUM PHOS 3 MMOL/1 ML INFUSION IV STA (08:25)
[2019-03-12] MEDS ORDERED: FLUOXETINE HCL 20 MG CAP PO SCH (09:00)
[2019-03-12] MEDS ORDERED: POTASSIUM PHOSPHATE 15 MMOL in SODIUM CHLORIDE 0.9% 250 ML IV ONE (09:00)
[2019-03-12] MEDS ORDERED: MULTI-VITAMIN INFUSION 10 ML, THIAMINE HCL 100 MG, FOLIC ACID 1 MG in SODIUM CHLORIDE 0... IV SCH (09:00)
[2019-03-12] MEDS: FLUOXETINE HCL 20 MG CAP PO SCH (09:40)
[2019-03-12 12:02] LABS: Alanine Aminotransferase 28 U/L (12-78); Albumin Level 3.8 gm/dl (3.4-5.0); Aspartate Aminotransferase 54 U/L (15-37); BUN Creatinine Ratio 3.2 (10-20); Blood Urea Nitrogen 3 mg/dl (7-18); Carbon Dioxide 14 mmol/L (21-32); Chloride 101 mmol/L (98-107); Est GFR (African American) 99.6; Est GFR (Non-African American) 85.9; Glucose 121 mg/dl (70-99); Magnesium 3.2 mg/dl (1.8-2.4); Potassium 3.7 mmol/L (3.5-5.1); Sodium 133 mmol/L (136-145)
[2019-03-12 12:10] LABS: Alkaline Phosphatase 77 U/L (45-117); Bilirubin,Total 0.8 mg/dl (0.2-1); Creatine Kinase 336 U/L (26-192); Globulin 3.9 gm/dl (2.5-4.0); Phosphorus 2.9 mg/dl (2.5-4.9); Total Protein 7.7 gm/dl (6.4-8.2); Troponin I < 0.015 ng/ml (0-0.045)
[2019-03-12] MEDS ORDERED: LORazepam 2 MG/4 ML VIAL ONE (12:13)
[2019-03-12] MEDS ORDERED: Nursing to Pharmacy Communication ONE ×2 (12:18→12:35)
[2019-03-12] MEDS ORDERED: NICOTINE 7 MG/24 HR TDSY TD ONE (12:45)
[2019-03-12] MEDS ORDERED: PHENobarbital sodium 65 MG/ML VIAL IV PRN (13:19)
[2019-03-12] MEDS ORDERED: PHENobarbital sodium 130 MG/ML VIAL IM STA (13:28)
[2019-03-12] MEDS ORDERED: CYANOCOBALAMIN 30 MCG in SYRINGE 0.97 ML IM ONE (14:00)
--- NOTE | 2019-03-12 18:17 | Critical Care Progress Note ---
Date of Service March 12, 2019 Assessment & Plan (1) Admitted to intensive care unit: Reason Critically Ill: Concerns over possible seizure. At risk for alcohol withdrawal. PLAN NEURO CAM ICU NEGATIVE -Alcohol Withdrawal: -Phenobarb protocol -Pt refuses Ativan- states makes her crazy -Recently started on Naltrexone and Topamax by PCP, will continue -Folic Acid, Thiamine, MV daily -Depression: -Continue fluoxetine CV -cont monitor tele -at present tachy, no other acute concerns RESP -sating well on RA -no other acute concerns at present -supplemental O2 as needed ABD/GI -tolerating regular diet -no acute concerns at present RENAL/ -initial concerns of hypokalemia/hypophosphatemia on admission. Normal now -Cont to follow electrolytes and will replete as needed -no other acute concerns at present ID -no concerns for acute infectious etiology -will cont monitor fever curve HEME -stable H/H -no acute concerns LINES/IV ACCESS -PIV x2 DVT Prophylaxis: SCD's, Ambulation Full Code Dispo: ICU. Will discuss with CM for possible placement to inpatient rehab Supervising Physician Co-Signing Physician Notes Dr. Nettles was resident physician during care of patient. I separately evaluated patient for cast portions of the history and the exam. I was present during the critical portion of medical decision making, and I discussed the case with the resident. I generally agree with the findings and plan. I first saw the patient during the code purple, the patient largely appeared to be post ictal, the clinical condition described by the bedside nurse immediately preceding my arrival was that of tonic-clonic activity most consistent with seizure-like activity. Patient alcohol withdrawal severity scale was 6 proceeding, she is at high risk for alcohol withdrawal seizures. She was treated with Ativan and we have transferred her to the ICU for empiric phenobarbital treatment. She has a long-standing history of rather heavy alcohol use and abuse, her father reports that she is largely regularly intoxicated and has had significant trouble attempting to get her placed into alcohol rehabilitation. At this time the patient lacks capacity to make decisions for herself. Patient has a transaminitis consistent with alcoholic hepatitis, alcohol dependence with acute alcohol intoxication upon presentation as well as alcohol induced mood disorder with alcohol withdrawal seizure. I have personally spent 50 minutes of critical care time in the direct management of this patient. This is a life/limb threatening event. This includes time spent evaluating patient, direct bedside care, chart review, placing orders, interpretation of diagnostic studies, discussion with consultants, patient, and/or family members regarding treatment decisions, as well as other required patient management activities. This time is exclusive of all separately billable procedures, and teaching time and separate from and in addition to any other critical care service time. Subjective 28 y/o F found in bed in [facility]. Reports of rapid response called at around noon time- concerns whether patient may have had seizure. She appeared to be awake and alert at this time. ICU physician recommended phenobarbital. At present pt denies any pain, SWARTZ, weakness. A&Ox3. Tolerating PO intake. Reports last drink 3-4 days ago. No other acute concerns or complaints. Review of Systems Review of Systems: All systems reviewed & are unremarkable except as noted in HPI & below Physical Exam Constitutional: WD/WN, vitals as above Eyes: PERRL, conjunctivae normal, anicteric sclerae ENMT: external ear and nose normal, oropharynx normal Respiratory: normal respiratory effort, lungs clear to auscultation Cardiovascular: Rate/Rhythm: regular rhythm and + tachycardic Gastrointestinal (Abdomen): normal bowel sounds, soft, nontender, no hepatosp lenomegaly Skin: no rashes, warm and dry Neurologic: CN's II-XI intact bilaterally Psychiatric: A+Ox3, euthymic affect Results & Data Vital Signs (Past 12 Hours) Vital Signs Temp Pulse Pulse Resp BP BP Pulse Ox 03/12/19 17:00 110 H 18 137/100 97 03/12/19 16:00 37.2 C 100 H 123 H 18 120/94 97 03/12/19 15:00 101 H 22 138/91 95 03/12/19 14:00 95 H 15 127/91 94 03/12/19 13:00 37.5 C 114 H 13 114/81 96 03/12/19 12:45 104 H 14 95 03/12/19 12:44 109 H 18 142/86 H 95 03/12/19 12:30 103 H 03/12/19 12:00 100 H 03/12/19 11:31 37.4 C 96 H 20 98 03/12/19 11:30 100 H 03/12/19 11:00 95 H 03/12/19 07:01 36.8 C 80 17 131/90 97 Laboratory Results Laboratory Results - last 24 hr 03/11/19 03/11/19 03/11/19 19:54 19:54 19:54 WBC 3.50 L RBC 3.81 L Hgb 13.9 Hct 39.0 MCV 102.4 H MCH 36.5 H MCHC 35.6 RDW Std Deviation 54.7 H RDW Coeff of Vinod 14.7 H Plt Count 217 MPV 9.4 Immature Gran % (Auto) 0.3 Neut % (Auto) 46.9 Lymph % (Auto) 37.1 [place] % (Auto) 15.1 Eos % (Auto) 0.0 Baso % (Auto) 0.6 Immature Gran # (Auto) 0.01 Neut # (Auto) 1.64 Lymph # (Auto) 1.30 [place] # (Auto) 0.53 Eos # (Auto) 0.00 Baso # (Auto) 0.02 Sodium 141 Potassium 2.9 L Chloride 107 Carbon Dioxide 20 L Anion Gap 14.0 H BUN 5 L Creatinine 1.01 Est Cr Clr Drug Dosing 72.9 Est GFR ( Amer) 89.0 Est GFR (Non-Af Amer) 76.8 BUN/Creatinine Ratio 4.7 L Glucose 144 H POC Glucose Calcium 8.9 Phosphorus 0.8 L* Magnesium 2.1 Total Bilirubin 0.3 AST 60 H ALT 31 Alkaline Phosphatase 79 Total Creatine Kinase Troponin I Total Protein 7.9 Albumin 3.8 Globulin 4.1 H Albumin/Globulin Ratio 0.9 Lipase 255 TSH 0.920 HCG, Qual Urine Color Urine Appearance Urine pH Ur Specific [place] Urine Protein Urine Glucose (UA) Urine Ketones Urine Blood Urine Nitrite Urine Bilirubin Urine Urobilinogen Ur Leukocyte Esterase Urine WBC (Auto) Urine RBC (Auto) U Hyaline Cast (Auto) U Epithel Cells (Auto) Urine Bacteria (Auto) Urine Opiates Screen Ur Methadone, Qual Urine Barbiturates Ur Phencyclidine (PCP) U Amphetamin/Meth Scrn MDMA (Ecstasy) Screen U Benzodiazepines Scrn Ur Cocaine Metabolite U Marijuana (THC) Screen Ethyl Alcohol mg/dL 320.0 H 03/11/19 03/11/19 03/11/19 19:54 22:06 22:06 WBC RBC Hgb Hct MCV MCH MCHC RDW Std Deviation RDW Coeff of Vinod Plt Count MPV Immature Gran % (Auto) Neut % (Auto) Lymph % (Auto) [place] % (Auto) Eos % (Auto) Baso % (Auto) Immature Gran # (Auto) Neut # (Auto) Lymph # (Auto) [place] # (Auto) Eos # (Auto) Baso # (Auto) Sodium Potassium Chloride Carbon Dioxide Anion Gap BUN Creatinine Est Cr Clr Drug Dosing Est GFR ( Amer) Est GFR (Non-Af Amer) BUN/Creatinine Ratio Glucose POC Glucose Calcium Phosphorus Magnesium Total Bilirubin AST ALT Alkaline Phosphatase Total Creatine Kinase Troponin I Total Protein Albumin Globulin Albumin/Globulin Ratio Lipase TSH HCG, Qual Negative Urine Color Yellow Urine Appearance Cloudy A Urine pH 5.5 Ur Specific [place] 1.018 Urine Protein Negative Urine Glucose (UA) Negative Urine Ketones Negative Urine Blood Negative Urine Nitrite Negative Urine Bilirubin Negative Urine Urobilinogen Negative Ur Leukocyte Esterase Negative Urine WBC (Auto) 1-5 Urine RBC (Auto) 0-4 U Hyaline Cast (Auto) 1-5 U Epithel Cells (Auto) >30 H Urine Bacteria (Auto) 1+ H Urine Opiates Screen Neg Ur Methadone, Qual Neg Urine Barbiturates Neg Ur Phencyclidine (PCP) Neg U Amphetamin/Meth Scrn Neg MDMA (Ecstasy) Screen Neg U Benzodiazepines Scrn Neg Ur Cocaine Metabolite Neg U Marijuana (THC) Screen Neg Ethyl Alcohol mg/dL 03/12/19 03/12/19 03/12/19 06:34 06:34 08:40 WBC 4.18 L RBC 3.52 L Hgb 12.6 Hct 36.5 L MCV 103.7 H MCH 35.8 H MCHC 34.5 RDW Std Deviation 55.7 H RDW Coeff of Vinod 14.9 H Plt Count 170 MPV 9.3 Immature Gran % (Auto) Neut % (Auto) Lymph % (Auto) [place] % (Auto) Eos % (Auto) Baso % (Auto) Immature Gran # (Auto) Neut # (Auto) Lymph # (Auto) [place] # (Auto) Eos # (Auto) Baso # (Auto) Sodium 136 Potassium 3.7 D Chloride 104 Carbon Dioxide 21 Anion Gap 11.0 BUN 3 L Creatinine 0.65 D Est Cr Clr Drug Dosing 113.3 Est GFR ( Amer) 142.0 Est GFR (Non-Af Amer) 122.5 BUN/Creatinine Ratio 3.9 L Glucose 73 POC Glucose Calcium 7.4 L D Phosphorus 2.1 L D 1.9 L Magnesium 1.2 L Total Bilirubin AST ALT Alkaline Phosphatase Total Creatine Kinase Troponin I Total Protein Albumin Globulin Albumin/Globulin Ratio Lipase TSH HCG, Qual Urine Color Urine Appearance Urine pH Ur Specific [place] Urine Protein Urine Glucose (UA) Urine Ketones Urine Blood Urine Nitrite Urine Bilirubin Urine Urobilinogen Ur Leukocyte Esterase Urine WBC (Auto) Urine RBC (Auto) U Hyaline Cast (Auto) U Epithel Cells (Auto) Urine Bacteria (Auto) Urine Opiates Screen Ur Methadone, Qual Urine Barbiturates Ur Phencyclidine (PCP) U Amphetamin/Meth Scrn MDMA (Ecstasy) Screen U Benzodiazepines Scrn Ur Cocaine Metabolite U Marijuana (THC) Screen Ethyl Alcohol mg/dL 03/12/19 03/12/19 11:21 17:58 WBC RBC Hgb Hct MCV MCH MCHC RDW Std Deviation RDW Coeff of Vinod Plt Count MPV Immature Gran % (Auto) Neut % (Auto) Lymph % (Auto) [place] % (Auto) Eos % (Auto) Baso % (Auto) Immature Gran # (Auto) Neut # (Auto) Lymph # (Auto) [place] # (Auto) Eos # (Auto) Baso # (Auto) Sodium 133 L Potassium 3.7 Chloride 101 Carbon Dioxide 14 L Anion Gap 18.0 H BUN 3 L Creatinine 0.92 Est Cr Clr Drug Dosing 80.0 Est GFR ( Amer) 99.6 Est GFR (Non-Af Amer) 85.9 BUN/Creatinine Ratio 3.2 L Glucose 121 H POC Glucose 115 H Calcium 8.0 L Phosphorus 2.9 D Magnesium 3.2 H Total Bilirubin 0.8 D AST 54 H ALT 28 Alkaline Phosphatase 77 Total Creatine Kinase 336 H Troponin I < 0.015 Total Protein 7.7 Albumin 3.8 Globulin 3.9 Albumin/Globulin Ratio 1.0 Lipase TSH HCG, Qual Urine Color Urine Appearance Urine pH Ur Specific [place] Urine Protein Urine Glucose (UA) Urine Ketones Urine Blood Urine Nitrite Urine Bilirubin Urine Urobilinogen Ur Leukocyte Esterase Urine WBC (Auto) Urine RBC (Auto) U Hyaline Cast (Auto) U Epithel Cells (Auto) Urine Bacteria (Auto) Urine Opiates Screen Ur Methadone, Qual Urine Barbiturates Ur Phencyclidine (PCP) U Amphetamin/Meth Scrn MDMA (Ecstasy) Screen U Benzodiazepines Scrn Ur Cocaine Metabolite U Marijuana (THC) Screen Ethyl Alcohol mg/dL Medications Administered Current Inpatient Medications Doxepin HCl (Sinequan) 100 mg PO HS [facility] Stop: 04/11/19 20:59 Fluoxetine HCl (Prozac) 40 mg PO DAILY [facility] Stop: 04/11/19 08:59 Last Admin: 03/12/19 09:40 Dose: 20 mg Documented by: Folic Acid (Folvite) 1 mg PO QAM [facility] Stop: 04/12/19 08:59 Phenobarbital Sodium 100 mg/ (Syringe) 0.7692 mls @ 0 mls/min IM Q8H [facility] Stop: 03/13/19 05:01 Magnesium Oxide (Mag-Ox) 400 mg PO BID [facility] Stop: 04/11/19 08:59 Last Admin: 03/12/19 08:17 Dose: 400 mg Documented by: Miscellaneous (Remove Nicoderm Patch) 1 ea N/A HS [facility] Stop: 04/11/19 20:59 Multivitamins (Multivitamin Tab) 1 tab PO QAM [facility] Stop: 04/12/19 08:59 Naltrexone HCl (Naltrexone Hcl) 50 mg PO DAILY [facility] Stop: 04/11/19 08:59 Last Admin: 03/12/19 08:19 Dose: 50 mg Documented by: Nicotine (Nicoderm Cq) 7 mg TD QAM [facility] Stop: 04/12/19 08:59 Phenobarbital (Phenobarbital) 64.8 mg PO BID [facility] Stop: 03/13/19 21:01 Phenobarbital (Phenobarbital) 32.4 mg PO BID [facility] Stop: 03/15/19 09:01 Phenobarbital Sodium (Phenobarbital Sodium) 65 mg IV Q6H PRN PRN Reason: Undecided Stop: 04/11/19 13:18 Topiramate (Topamax) 25 mg PO DAILY [facility] Stop: 04/11/19 08:59 Last Admin: 03/12/19 08:19 Dose: 25 mg Documented by: Resident Activity Tracking Resident Involvement: Resident Care Provided Care Provided: Adult Hospital Medicine
[2019-03-12] MEDS ORDERED: PHENobarbital sodium 65 MG/ML VIAL IM SCH (20:30)
[2019-03-12] MEDS ORDERED: COUGH DROP (SUGAR FREE) LOZ 24 LOZ/1 BOX BUCCAL ONE (20:35)
[2019-03-12] MEDS: DOXEPIN HCL 50 MG CAPSULE PO SCH (20:41)
[2019-03-12] MEDS ORDERED: GABAPENTIN 600 MG TAB PO SCH (22:00)
[2019-03-13 04:35] LABS: Basophils # (auto) 0.01 K/uL (0-0.2); Basophils % (auto) 0.1 %; Eosinophils # (auto) 0.03 K/uL (0-0.5); Eosinophils % (auto) 0.3 %; Hemoglobin 14.4 g/dL (12.0-16.0); Immature Granulocytes # (auto) 0.01 K/uL (0.00-0.02); Immature Granulocytes % (auto) 0.1 %; Lymphocytes # (auto) 1.16 K/uL (1.2-3.4); Lymphocytes % (auto) 13.3 %; Mean Corpuscular Hgb Conc 35.1 g/dL (32-36); Mean Corpuscular Volume 103.5 fL (80-100); Mean Platelet Volume 9.8 fL (7.4-10.4); Monocytes # (auto) 0.53 K/uL (0.11-0.59); Monocytes % (auto) 6.1 %; Neutrophils # (auto) 7.01 K/uL (1.4-6.5); Neutrophils % (auto) 80.1 %; Platelet Count 172 K/uL (130-400); RDW Coefficient of Variation 14.4 % (11.5-14.5); RDW Standard Deviation 53.9 fL (36.4-46.3); Red Blood Count 3.96 M/uL (4.2-5.4); White Blood Count 8.75 K/uL (4.8-10.8)
[2019-03-13 05:00] LABS: Albumin Level 3.5 gm/dl (3.4-5.0); BUN Creatinine Ratio 4.6 (10-20); Bilirubin Direct 0.3 mg/dl (0-0.2); Calcium 8.9 mg/dl (8.5-10.1); Creatinine Clr Calc Pharmacy 118.7 ml/min; Est GFR (African American) 144.2; Est GFR (Non-African American) 124.4; Magnesium 2.4 mg/dl (1.8-2.4); Potassium 3.3 mmol/L (3.5-5.1)
[2019-03-13 05:10] LABS: Albumin Globulin Ratio 0.9 (0.9-2); Total Protein 7.5 gm/dl (6.4-8.2)
[2019-03-13] MEDS ORDERED: POTASSIUM CHLORIDE 20 MEQ TABCR PO STA (06:04)
[2019-03-13] MEDS ORDERED: PROPRANOLOL HCL 10 MG TAB PO STA (07:39)
--- NOTE | 2019-03-13 07:44 | Critical Care Progress Note ---
Date of Service March 13, 2019 Assessment & Plan (1) Admitted to intensive care unit: Reason Critically Ill: Concerns over possible seizure. At risk for alcohol withdrawal. PLAN NEURO CAM ICU NEGATIVE -Alcohol Withdrawal: -Phenobarb protocol for withdrawal seizure. Decrease BID dosing starting tomorrow. End date 03/16 -Pt refuses Ativan- states makes her crazy. Received 1x after tonic-clonic seizure 03/12 -Recently started on Naltrexone and Topamax by PCP. Will hold off on naltrexone. -Folic Acid, Thiamine, MV daily -Depression: -Continue fluoxetine CV -cont monitor tele -Still tachy today. Added on propranolol 10mg TID -at present tachy, no other acute concerns RESP -sating well on RA -no other acute concerns at present -supplemental O2 as needed ABD/GI -tolerating regular diet -AST 52- likely transaminitis 2/2 alcoholic hepatitis -no other acute concerns at present RENAL/ -initial concerns of hypokalemia/hypophosphatemia on admission. Normal now -Cont to follow electrolytes and will replete as needed -no other acute concerns at present ID -no concerns for acute infectious etiology -will cont monitor fever curve HEME -stable H/H -no acute concerns LINES/IV ACCESS -PIV x2 DVT Prophylaxis: SCD's, Ambulation Full Code Dispo: Stable for downgrade today. Discuss with CM for possible placement to inpatient rehab Supervising Physician Co-Signing Physician Notes Dr. Nettles was resident physician during care of patient. I separately evaluated patient for cast portions of the history and the exam. I was present during the critical portion of medical decision making, and I discussed the case with the resident. I generally agree with the findings and plan. Patient's mental status is significantly improved, she is tolerating the oral phenobarbital, added 10 mg propranolol 3 times daily stable for downgrade out of ICU Subjective 28 y/o F found in bed in [place]. Reports no acute overnight events other than some tremors overnight. Needed one prn dose of phenobarb. Otherwise, tolerating PO intake. No issues voiding. No other acute concerns or complaints. Review of Systems Review of Systems: All systems reviewed & are unremarkable except as noted in HPI & below Physical Exam Constitutional: WD/WN, vitals as above Eyes: PERRL, conjunctivae normal, anicteric sclerae ENMT: external ear and nose normal, oropharynx normal Respiratory: normal respiratory effort, lungs clear to auscultation Cardiovascular: Rate/Rhythm: regular rhythm and + tachycardic Gastrointestinal (Abdomen): normal bowel sounds, soft, nontender, no hepatosplenomegaly Skin: no rashes, warm and dry Neurologic: CN's II-XI intact bilaterally Slight tremor Psychiatric: A+Ox3, euthymic affect Results & Data Vital Signs (Past 12 Hours) Vital Signs Temp Pulse Resp BP Pulse Ox 03/13/19 06:00 111 H 16 103/74 96 03/13/19 05:00 110 H 16 103/72 96 03/13/19 04:00 37 C 110 H 16 106/75 98 03/13/19 03:00 103 H 20 104/70 98 03/13/19 02:00 104 H 20 112/74 97 03/13/19 01:00 106 H 16 106/76 97 03/13/19 00:00 37.7 C H 105 H 22 102/67 97 03/12/19 23:00 123 H 18 103/64 95 03/12/19 22:00 136 H 17 130/89 95 03/12/19 21:00 111 H 16 124/86 95 03/12/19 20:00 37.7 C H 95 H 27 H 132/97 97 Laboratory Results Laboratory Results - last 24 hr 03/12/19 03/13/19 03/13/19 17:58 04:17 04:17 WBC 8.75 RBC 3.96 L Hgb 14.4 Hct 41.0 MCV 103.5 H MCH 36.4 H MCHC 35.1 RDW Std Deviation 53.9 H RDW Coeff of Vinod 14.4 Plt Count 172 MPV 9.8 Immature Gran % (Auto) 0.1 Neut % (Auto) 80.1 Lymph % (Auto) 13.3 [place] % (Auto) 6.1 Eos % (Auto) 0.3 Baso % (Auto) 0.1 Immature Gran # (Auto) 0.01 Neut # (Auto) 7.01 H Lymph # (Auto) 1.16 L [place] # (Auto) 0.53 Eos # (Auto) 0.03 Baso # (Auto) 0.01 Sodium 131 L Potassium 3.3 L Chloride 100 Carbon Dioxide 23 Anion Gap 8.0 BUN 3 L Creatinine 0.62 D Est Cr Clr Drug Dosing 118.7 Est GFR ( Amer) 144.2 Est GFR (Non-Af Amer) 124.4 BUN/Creatinine Ratio 4.6 L Glucose 92 POC Glucose 115 H Calcium 8.9 Magnesium 2.4 Total Bilirubin 1.0 Direct Bilirubin 0.3 H AST 52 H ALT 27 Alkaline Phosphatase 73 Total Creatine Kinase 537 H Total Protein 7.5 Albumin 3.5 Globulin 4.0 Albumin/Globulin Ratio 0.9 Medications Administered Current Inpatient Medications Doxepin HCl (Sinequan) 100 mg PO [facility] Stop: 04/11/19 20:59 Last Admin: 03/12/19 20:41 Dose: 100 mg Documented by: Fluoxetine HCl (Prozac) 40 mg PO DAILY [facility] Stop: 04/11/19 08:59 Last Admin: 03/13/19 07:47 Dose: 40 mg Documented by: Folic Acid (Folvite) 1 mg PO QAM [facility] Stop: 04/12/19 08:59 Last Admin: 03/13/19 07:48 Dose: 1 mg Documented by: Potassium Chloride/Sodium Chloride (Normal Saline W/20 Meq Kcl) 20 meq in 1,000 mls @ 100 mls/hr IV .Q10H [facility] Stop: 04/12/19 10:59 Last Admin: 03/13/19 12:08 Dose: 100 mls/hr Documented by: Magnesium Oxide (Mag-Ox) 400 mg PO BID [facility] Stop: 04/11/19 08:59 Last Admin: 03/13/19 07:47 Dose: 400 mg Documented by: Miscellaneous (Remove Nicoderm Patch) 1 ea N/A [facility] Stop: 04/11/19 20:59 Last Admin: 03/12/19 20:41 Dose: 1 ea Documented by: Multivitamins (Multivitamin Tab) 1 tab PO QAM [facility] Stop: 04/12/19 08:59 Last Admin: 03/13/19 07:47 Dose: 1 tab Documented by: Naltrexone HCl (Naltrexone Hcl) 50 mg PO DAILY [facility] Stop: 04/11/19 08:59 Last Admin: 03/13/19 07:47 Dose: 50 mg Documented by: Nicotine (Nicoderm Cq) 7 mg TD QAM [facility] Stop: 04/12/19 08:59 Last Admin: 03/13/19 07:48 Dose: 7 mg Documented by: Phenobarbital (Phenobarbital) 64.8 mg PO BID [facility] Stop: 03/13/19 21:01 Phenobarbital (Phenobarbital) 32.4 mg PO BID [facility] Stop: 03/15/19 09:01 Phenobarbital Sodium (Phenobarbital Sodium) 65 mg IV Q6H PRN PRN Reason: Undecided Stop: 03/16/19 13:18 Last Admin: 03/12/19 20:41 Dose: 65 mg Documented by: Propranolol HCl (Inderal) 10 mg PO TID [facility] Stop: 04/12/19 08:59 Last Admin: 03/13/19 09:09 Dose: 10 mg Documented by: Thiamine HCl (Vitamin B-1) 100 mg PO QAM [facility] Stop: 04/12/19 08:59 Last Admin: 03/13/19 07:46 Dose: 100 mg Documented by: Topiramate (Topamax) 25 mg PO DAILY [facility] Stop: 04/11/19 08:59 Last Admin: 03/13/19 07:46 Dose: 25 mg Documented by: Resident Activity Tracking Resident Involvement: Resident Care Provided Care Provided: Adult Hospital Medicine
[2019-03-13] MEDS: THIAMINE HCL 100 MG TAB PO SCH (07:46)
[2019-03-13] MEDS: TOPIRAMATE 25 MG TAB PO SCH (07:46)
[2019-03-13] MEDS: MULTIVITAMIN TAB PO SCH (07:47)
[2019-03-13] MEDS: FLUOXETINE HCL 20 MG CAP PO SCH (07:47)
[2019-03-13] MEDS: MAGNESIUM OXIDE 400 MG TAB PO SCH ×2 (07:47→21:29)
[2019-03-13] MEDS: NALTREXONE HCL 50 MG TAB PO SCH (07:47)
[2019-03-13] MEDS: FOLIC ACID 1 MG TAB PO SCH (07:48)
[2019-03-13] MEDS: NICOTINE 7 MG/24 HR TDSY TD SCH (07:48)
[2019-03-13] MEDS: PROPRANOLOL HCL 10 MG TAB PO SCH ×3 (09:09→21:04)
--- NOTE | 2019-03-13 10:34 | Hospitalist Progress Note ---
Date of Service March 13, 2019 Assessment & Plan (1) Alcohol withdrawal: (1) Alcohol Withdrawal -- on Phenobabrbital taper no overt signs of withdrawal today Neuro consulted, EEG ordered -- will need inpatient Alcohol Rehab (2) Hypokalemia: -- being repleted Hypomagnesemia -resolved (3) Hypophosphatemia: - repleted (4) Depression: -Continue home dose fluoxetine which is 40 mg daily -continue home dose doxepin 100 mg qhs (5) DVT prophylaxis: -SCDs, ambulate Disposition will need inpatient Rehab Subjective ff up for alcohol withdrawal seen with KARO Sánchez through whole encounter seen resting in bed, comfortable states she feels improved today denies headache, dizziness, dyspnea, palpitations denies tremos, anxiety, hallucinations no other symptoms Review of Systems Review of Systems: All systems reviewed & are unremarkable except as noted in HPI & below Physical Exam Physical Exam: General- oriented x 3, not in distress, speaks in sentences with no effort or accessory muscle use Eyes- anicteric Neck- no JVD Lungs- clear breath sounds bilaterally, no rales/wheezes Heart- normal rate, regular rhythm; no murmurs Abdomen- normal bowel sounds, nondistended, soft, nontender Extremities- no pretibial edema, no calf tenderness Neuro- alert, oriented x 3; no gross focal neurologic deficits Skin- warm & dry Results & Data Vital Signs (Past 12 Hours) Vital Signs Temp Pulse Pulse Resp BP Pulse Ox 03/13/19 07:55 112 H 03/13/19 06:00 111 H 16 103/74 96 03/13/19 05:00 110 H 16 103/72 96 03/13/19 04:00 37 C 110 H 16 106/75 98 03/13/19 03:00 103 H 20 104/70 98 03/13/19 02:00 104 H 20 112/74 97 03/13/19 01:00 106 H 16 106/76 97 03/13/19 00:00 37.7 C H 105 H 22 102/67 97 03/12/19 23:00 123 H 18 103/64 95 Laboratory Results all noted and reviewed
[2019-03-13] MEDS: NSS + 20MEQ KCL 20 MEQ/1,000 ML BAG IV SCH ×2 (12:08→21:28)
[2019-03-13] MEDS: PHENobarbital 32.4 MG TAB PO SCH ×2 (12:49→21:28)
--- NOTE | 2019-03-13 13:46 | Neurology Consultation ---
Date of Consultation March 13, 2019 History of Present Illness Attending Physician: Ganga Rodriguez MD Assessment/Plan: Alcohol Use Disorder Alcohol intoxication Hypokalemia Hyponatremia Possible alcohol withdrawal seizure HyperCKnemia A 28-year-old woman with past medical history of alcohol use disorder admitted admitted for alcohol detox. Patient with history of alcohol withdrawal seizure x3 witnessed by her father which he describes at GTC seizure. Has tongue abrasion on right of her tongue on examine. Mildly elevated CK. Last seizure was yesterday on March 12 which patient reports her last alcohol drink was 48-hours ago. She does report prodromal symptoms of tremulous. Patient currently in the ICU for detox protocol. Neurology was consulted due to concern for seizure. - I believe this patient had an alcohol withdrawal seizure. All3 GTC seizures reported by patient father occurred in the setting of alcohol withdrawal. No history of febrile seizure, meningitis, or TBI. CT head non contrast is Normal. EEG showed excessive beta activity. - Agree with alcohol detox protocol, 6-day Ativan taper or similar. - Agree with IV thiamine replacement. - Electrolyte replacement per ICU - Recommend psychiatric consultation - Continue home Topamax - Seizure precautions History of Present Illness A 28-year-old woman with a past history of alcohol abuse admitted for intoxication/alcohol detox. Patient was admitted on March 11, 2019. She was admitted on February 12 for alcohol intoxication however left AMA on February 16. Per chart review she was started on naltrexone and Topamax by her family physician for alcohol abuse. On March 12, 2019 she was found minimally responsive then transferred to the ICU. Father at bedside. Patient reports feeling fine now. father reports witnessed 3 GTC in the last few months which he described as tonic posturing with clonic movements. She has been to rehab but has relapsed. She is not able to hold job due to alcohol. 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 No history of seizures as a child. No history of febrile seizures, meningitis, or TBI. Denies illicit drug use. Heavy smoker. Reports having tremors when she does not drink alcohol. Seizures typically occur within 1-2 days of alcohol cessation. Allergies Allergy/AdvReac Type Severity Reaction Status Date / Time No Known Allergies Allergy Unverified 09/09/18 09:31 Home Medications Home Medications Medication Instructions Recorded Confirmed Type fluoxetine [Prozac] 20 mg PO DAILY 11/03/18 03/11/19 History hydroxyzine HCl 25 mg PO QID PRN 03/11/19 03/11/19 History naltrexone 50 mg PO DAILY 03/11/19 03/11/19 History topiramate [Topamax] 25 mg PO DAILY 03/11/19 03/11/19 History Patient History Medical History Tobacco use (Chronic) Depression (Chronic) Elevated LFTs (Chronic) Alcohol withdrawal seizure (Resolved) Alcoholism (Chronic) Alcohol withdrawal seizure (Inactive) Family History Mother Diabetes Social History Preferred Language: Lithuanian Communication Ability: Effective Visual Impairment: Partially Limited 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 Beliefs That Will Affect Care: None marital status: Single marital status details: Boyfriend Current Living Situation: Family Current Living Situation Comment: lives with father Other Information That Helps Us Care for You: No Feels Safe at Home: No Is there a partner from a previous relationship who is making you feel unsafe now?: No Safety Concerns: Afraid for Self Smoking Status: Current every day smoker Tobacco Type: cigarettes Cigarettes Per Day: 2-20 Second Hand Exposure: Yes Tobacco Cessation Education Requested by Patient: No Hx Alcohol Use: Yes Alcohol type: beer and hard liquor Alcohol Intake Frequency Comment: 6-7 daily Hx Substance Use: Yes substance use type: does not use Physical Exam Physical Exam: EXAM: Constitutional: appearance normally developed, well nourished and non-obese Head and Face: normocephalic and atraumatic Eyes: normal lids, normal conjunctiva Neck: supple Respiratory: normal effort Cardiovascular: normal pulses Abdomen: non distended Skin: bruises on anterior shins Psychiatric: normal mood and normal affect NEUROLOGIC EXAMINATION: Appearance: no acute distress Orientation: awake, alert and oriented x 3 Mental Status: alert Memory: Ok Attention: normal Knowledge: appropriate Language: no aphasia Speech: no dysarthria Cranial Nerves: CN 2 - no visual defect on confrontation and pupils round, equal, reactive to light CN 3, 4, 6 - extra-ocular movements intact CN 5 - facial sensation intact CN 7 - no facial asymmetry CN 8 - intact hearing CN 9, 10 - palate symmetric CN 11 - good shoulder shrug CN 12 - tongue midline, abrasion on right tongue Gait: deferred Coordination: no ataxia with finger to nose testing, no postural tremor, no asterixis Sensory: intact and symmetric to light touch Muscle Tone: normal Muscle exam: 5/5 throughout Reflexes: Marx negative, No ankle clonus, toes down going Results & Data Vital Signs (Past 12 Hours) Vital Signs Temp Pulse Pulse Resp BP BP Pulse Ox 03/13/19 12:00 110 H 17 100/75 98 03/13/19 11:00 85 15 98/55 L 03/13/19 10:00 110 H 18 104/74 96 03/13/19 09:00 105 H 17 104/68 96 03/13/19 08:00 37.1 C 114 H 16 110/72 97 03/13/19 07:55 112 H 03/13/19 07:00 107 H 12 89/61 L 95 03/13/19 06:00 111 H 16 103/74 96 03/13/19 05:00 110 H 16 103/72 96 03/13/19 04:00 37 C 110 H 16 106/75 98 03/13/19 03:00 103 H 20 104/70 98 03/13/19 02:00 104 H 20 112/[address] brain noncontrast: No acute intracranial process
--- NOTE | 2019-03-13 14:41 | Procedure Note ---
EEG Procedure Note Date of Service March 13, 2019 Start / End Times Start Time: 08:24 End Time: 08:[address] Ganga Rodriguez History A 28 year old woman admitted for alcohol intoxication with alcohol withdrawal seizure. EEG performed for evaluation of epileptiform activity. Home Medication List Home Medications Medication Instructions Recorded Confirmed Type fluoxetine [Prozac] 20 mg PO DAILY 11/03/18 03/11/19 History hydroxyzine HCl 25 mg PO QID PRN 03/11/19 03/11/19 History naltrexone 50 mg PO DAILY 03/11/19 03/11/19 History topiramate [Topamax] 25 mg PO DAILY 03/11/19 03/11/19 History Inpatient Medication List Doxepin HCl (Sinequan) 100 mg PO [facility] Stop: 04/11/19 20:59 Last Admin: 03/12/19 20:41 Dose: 100 mg Documented by: [id number] Fluoxetine HCl (Prozac) 40 mg PO DAILY [facility] Stop: 04/11/19 08:59 Last Admin: 03/13/19 07:47 Dose: 40 mg Documented by: [id number] Admin: 03/12/19 09:40 Dose: 20 mg Documented by: [id number] Folic Acid (Folvite) 1 mg PO QAM [facility] Stop: 04/12/19 08:59 Last Admin: 03/13/19 07:48 Dose: 1 mg Documented by: [id number] Potassium Chloride/Sodium Chloride (Normal Saline W/20 Meq Kcl) 20 meq in 1,000 mls @ 100 mls/hr IV .Q10H [facility] Stop: 04/12/19 10:59 Last Admin: 03/13/19 12:08 Dose: 100 mls/hr Documented by: [id number] Magnesium Oxide (Mag-Ox) 400 mg PO BID [facility] Stop: 04/11/19 08:59 Last Admin: 03/13/19 07:47 Dose: 400 mg Documented by: [id number] Admin: 03/12/19 20:39 Dose: 400 mg Documented by: [id number] Admin: 03/12/19 08:17 Dose: 400 mg Documented by: [id number] Miscellaneous (Remove Nicoderm Patch) 1 ea N/A [facility] Stop: 04/11/19 20:59 Last Admin: 03/12/19 20:41 Dose: 1 ea Documented by: [id number] Multivitamins (Multivitamin Tab) 1 tab PO QAM [facility] Stop: 04/12/19 08:59 Last Admin: 03/13/19 07:47 Dose: 1 tab Documented by: [id number] Naltrexone HCl (Naltrexone Hcl) 50 mg PO DAILY [facility] Stop: 04/11/19 08:59 Last Admin: 03/13/19 07:47 Dose: 50 mg Documented by: [id number] Admin: 03/12/19 08:19 Dose: 50 mg Documented by: [id number] Nicotine (Nicoderm Cq) 7 mg TD QAM [facility] Stop: 04/12/19 08:59 Last Admin: 03/13/19 07:48 Dose: 7 mg Documented by: [id number] Phenobarbital (Phenobarbital) 64.8 mg PO BID [facility] Stop: 03/13/19 21:01 Last Admin: 03/13/19 12:49 Dose: 64.8 mg Documented by: [id number] Phenobarbital Sodium (Phenobarbital Sodium) 65 mg IV Q6H PRN PRN Reason: Undecided Stop: 03/16/19 13:18 Last Admin: 03/12/19 20:41 Dose: 65 mg Documented by: [id number] Propranolol HCl (Inderal) 10 mg PO TID [facility] Stop: 04/12/19 08:59 Last Admin: 03/13/19 14:23 Dose: 10 mg Documented by: [id number] Admin: 03/13/19 09:09 Dose: 10 mg Documented by: [id number] Thiamine HCl (Vitamin B-1) 100 mg PO QAM [facility] Stop: 04/12/19 08:59 Last Admin: 03/13/19 07:46 Dose: 100 mg Documented by: [id number] Topiramate (Topamax) 25 mg PO DAILY [facility] Stop: 04/11/19 08:59 Last Admin: 03/13/19 07:46 Dose: 25 mg Documented by: [id number] Admin: 03/12/19 08:19 Dose: 25 mg Documented by: [id number] Discontinued Medications Fluoxetine HCl (Prozac) 20 mg PO DAILY [facility] Stop: 04/11/19 08:59 Last Admin: 03/12/19 08:19 Dose: 20 mg Documented by: [id number] Gabapentin (Neurontin) 1,200 mg PO TODAY@2345 [facility] Stop: 03/11/19 23:46 Last Admin: 03/12/19 00:35 Dose: 1,200 mg Documented by: [id number] Gabapentin (Neurontin) 600 mg PO Q6H [facility] Stop: 03/12/19 12:01 Last Admin: 03/12/19 13:12 Dose: 600 mg Documented by: [id number] Admin: 03/12/19 06:46 Dose: 600 mg Documented by: [id number] Multivitamins 10 ml/ Thiamine HCl 100 mg/ Folic Acid 1 mg/Sodium Chloride 1,011.2 mls @ 1,011.2 mls/hr IV .Q1H [facility] Stop: 03/11/19 20:44 Last Infusion: 03/11/19 21:44 Dose: 0 mls/hr Documented by: [id number] Admin: 03/11/19 20:10 Dose: 1,011.2 mls/hr Documented by: [id number] Potassium Chloride (K Florentin / Wtr) 20 meq in 100 mls @ 50 mls/hr IV ONE ONE Stop: 03/11/19 23:08 Last Admin: 03/12/19 07:17 Dose: Not Given Documented by: [id number] Potassium Phosphate 24 mmol/ (Sodium Chloride) 508 mls @ 127 mls/hr IV TODAY@2145 ONE Stop: 03/12/19 01:44 Last Infusion: 03/12/19 03:42 Dose: 0 mls/hr Documented by: [id number] Admin: 03/11/19 22:02 Dose: 127 mls/hr Documented by: [id number] Potassium Chloride (K Florentin / Wtr) 10 meq in 100 mls @ 50 mls/hr IV Q1H [facility] Stop: 03/11/19 23:59 Last Infusion: 03/12/19 03:42 Dose: 0 mls/hr Documented by: [id number] Admin: 03/12/19 01:49 Dose: 50 mls/hr Documented by: [id number] Infusion: 03/12/19 01:49 Dose: 50 mls/hr Documented by: [id number] Admin: 03/12/19 00:34 Dose: 50 mls/hr Documented by: [id number] Sodium Chloride (Nss 1000ml) 1,000 mls @ 100 mls/hr IV .Q10H [facility] Stop: 04/10/19 23:32 Last Infusion: 03/12/19 07:45 Dose: 0 mls/hr Documented by: [id number] Admin: 03/12/19 02:08 Dose: 100 mls/hr Documented by: [id number] Multivitamins 10 ml/ Thiamine HCl 100 mg/ Folic Acid 1 mg/Sodium Chloride 1,011.2 mls @ 500 mls/hr IV DAILY@0900 [facility] Stop: 04/11/19 08:59 Last Infusion: 03/12/19 10:29 Dose: 0 mls/hr Documented by: [id number] Admin: 03/12/19 08:17 Dose: 500 mls/hr Documented by: [id number] Magnesium Sulfate/Dextrose (Magnesium Sulfate / D5w) 1 gm in 100 mls @ 100 mls/hr IV Q1H [facility] Stop: 03/12/19 10:59 Last Infusion: 03/12/19 11:34 Dose: 0 mls/hr Documented by: [id number] Admin: 03/12/19 10:29 Dose: 100 mls/hr Documented by: [id number] Infusion: 03/12/19 10:25 Dose: 100 mls/hr Documented by: [id number] Admin: 03/12/19 09:25 Dose: 100 mls/hr Documented by: [id number] Infusion: 03/12/19 09:17 Dose: 100 mls/hr Documented by: [id number] Admin: 03/12/19 08:17 Dose: 100 mls/hr Documented by: [id number] Potassium Phosphate 15 mmol/ (Sodium Chloride) 255 mls @ 88 mls/hr IV NOW ONE Stop: 03/12/19 11:53 Last Infusion: 03/12/19 12:45 Dose: 0 mls/hr Documented by: [id number] Admin: 03/12/19 09:42 Dose: 88 mls/hr Documented by: [id number] Cyanocobalamin 30 mcg/ Syringe 1 mls @ 0 mls/min IM TODAY@1400 ONE Stop: 03/12/19 14:01 Last Admin: 03/12/19 15:43 Dose: 1 mls/min Documented by: [id number] Phenobarbital Sodium 100 mg/ (Syringe) 0.7692 mls @ 0 mls/min IM Q8H [facility] Stop: 03/13/19 05:01 Last Admin: 03/13/19 04:24 Dose: 100 mls/min Documented by: [id number] Admin: 03/12/19 20:39 Dose: 100 mls/min Documented by: [id number] Lorazepam (Ativan) Confirm Administered Dose 2 mg .ROUTE .STK-MED ONE Stop: 03/12/19 12:14 Last Admin: 03/12/19 12:16 Dose: 2 mg Documented by: [id number] Menthol (Nice) Confirm Administered Dose 24 latrell BUCCAL .STK-MED ONE Stop: 03/12/19 20:36 Last Admin: 03/12/19 20:38 Dose: 24 latrell Documented by: [id number] Nicotine (Nicoderm Cq) 7 mg TD NOW ONE Stop: 03/12/19 12:46 Last Admin: 03/12/19 13:05 Dose: 7 mg Documented by: [id number] Ondansetron HCl (Zofran) 4 mg IV Q6H PRN PRN Reason: Nausea Stop: 04/11/19 05:55 Last Admin: 03/12/19 06:15 Dose: 4 mg Documented by: [id number] Phenobarbital Sodium (Phenobarbital Sodium) 135 mg IM NOW STA Stop: 03/12/19 13:29 Last Admin: 03/12/19 14:19 Dose: 135 mg Documented by: [id number] Potassium Chloride (Klor-Con M10) 20 meq PO NOW STA Stop: 03/12/19 01:46 Last Admin: 03/12/19 03:42 Dose: 20 meq Documented by: [id number] Potassium Chloride (Klor-Con M20) 40 meq PO NOW STA Stop: 03/13/19 06:05 Last Admin: 03/13/19 06:15 Dose: 40 meq Documented by: [id number] Propranolol HCl (Inderal) 10 mg PO NOW STA Stop: 03/13/19 07:40 Last Admin: 03/13/19 08:15 Dose: Not Given Documented by: [id number] Description This is a 21 electrode EEG with a single channel dedicated to limited EKG. The electrodes were placed in accordance with the International 10-20 system. REPORT: At the onset of the EEG the patient is awake. The posterior dominant rhythm is not well seen. Instead the background consist of intermixed 15-25 uV beta activity with intermixed movement / myogenic artifact. Drowsiness is characterized by low amplitude mixed frequency activity, roving eye movements, and decreased muscle artifact. Hyperventilation does not elicit any abnormalities. IMPRESSION: This is a normal awake and drowsy EEG. Excessive beta activity is a normal variant and can be seen as a medication side effect, ie benzodiazepines and barbiturates.
[2019-03-13] MEDS: DOXEPIN HCL 50 MG CAPSULE PO SCH (21:04)
[2019-03-14] MEDS ORDERED: GABAPENTIN 600 MG TAB PO SCH
[2019-03-14] MEDS: PROPRANOLOL HCL 10 MG TAB PO SCH ×2 (08:41→13:04)
[2019-03-14] MEDS: FOLIC ACID 1 MG TAB PO SCH (08:41)
[2019-03-14] MEDS: NICOTINE 7 MG/24 HR TDSY TD SCH (08:41)
[2019-03-14] MEDS: MAGNESIUM OXIDE 400 MG TAB PO SCH (08:41)
[2019-03-14] MEDS: MULTIVITAMIN TAB PO SCH (08:41)
[2019-03-14] MEDS: NSS + 20MEQ KCL 20 MEQ/1,000 ML BAG IV SCH (08:41)
[2019-03-14] MEDS: FLUOXETINE HCL 20 MG CAP PO SCH (08:42)
[2019-03-14] MEDS: THIAMINE HCL 100 MG TAB PO SCH (08:42)
[2019-03-14] MEDS: TOPIRAMATE 25 MG TAB PO SCH (08:42)
[2019-03-14] MEDS ORDERED: PHENobarbital 32.4 MG TAB PO SCH (09:00)
[2019-03-14 11:22] LABS: Basophils # (auto) 0.01 K/uL (0-0.2); Basophils % (auto) 0.1 %; Eosinophils # (auto) 0.12 K/uL (0-0.5); Eosinophils % (auto) 1.2 %; Hematocrit (blood only) 35.3 % (37-47); Hemoglobin 12.2 g/dL (12.0-16.0); Immature Granulocytes # (auto) 0.01 K/uL (0.00-0.02); Immature Granulocytes % (auto) 0.1 %; Lymphocytes # (auto) 0.92 K/uL (1.2-3.4); Lymphocytes % (auto) 9.6 %; Mean Corpuscular Hgb Conc 34.6 g/dL (32-36); Mean Corpuscular Volume 104.4 fL (80-100); Mean Platelet Volume 9.5 fL (7.4-10.4); Monocytes # (auto) 0.49 K/uL (0.11-0.59); Monocytes % (auto) 5.1 %; Neutrophils # (auto) 8.07 K/uL (1.4-6.5); Neutrophils % (auto) 83.9 %; Platelet Count 142 K/uL (130-400); RDW Coefficient of Variation 14.4 % (11.5-14.5); Red Blood Count 3.38 M/uL (4.2-5.4); White Blood Count 9.62 K/uL (4.8-10.8)
[2019-03-14 11:51] LABS: Albumin Level 3.2 gm/dl (3.4-5.0); BUN Creatinine Ratio 9.3 (10-20); Bilirubin,Total 0.8 mg/dl (0.2-1); Calcium 8.9 mg/dl (8.5-10.1); Creatinine Clr Calc Pharmacy 95.6 ml/min; Est GFR (African American) 123.5; Est GFR (Non-African American) 106.6; Phosphorus 2.5 mg/dl (2.5-4.9); Total Protein 7.2 gm/dl (6.4-8.2)
[2019-03-14 14:12] LABS: Potassium 3.9 mmol/L (3.5-5.1)
[2019-03-14 14:18] LABS: Bilirubin Direct 0.2 mg/dl (0-0.2)
--- NOTE | 2019-03-14 17:14 | Psychiatric Consultation ---
Date of Consultation March 14, 2019 Impression / Recommendations Impression 28-year-old female admitted medically for alcohol detox, with initial agreement for referral to an inpatient D&A rehab. Psychiatric consult service presence was requested to assess patient to determine if she was capable of making the decision to leave AMA. Pt does appear to have capacity at time of assessment as she is able to verbalize recommendations, she asks insightful questions regarding recommended treatment plan, she is able to provide a reasoning for her decision making, and she is able to verbalize what that decision is. Although it is not the healthiest decision, patient was deemed to have capacity to leave AMA if desired. Risks of AMA discharge were reviewed thorough and options available to her for inpatient D&A referrals, medications to assist with anxiety, and ongoing medical treatment were exhaustively explained to her. At this time, patient's poor judgement is not deemed to be a result of a primary psychiatric disorder. The safer decision would be for patient to stay in the hospital and complete her treatment; however, she does not appear to be at acute risk of harm to self or within 30-days based on presentation of a primary psychiatric disorder. This provider advocated against this decision as it is not an option which respects patient's mental health rights, and would not be appropriate. Pt's father was updated, and requested to speak with this provider. He was encouraged to continue to be supportive of the patient and encourage admission to rehab. He is not pleased with the patient's ability to sign herself out, but was understanding of legal restrictions to protect patient's rights. Pt's father was encouraged to remove alcohol from the home prior to her return to reduce risk of relapse. He was also invited to fill out a 302 petitioning statement if desired, though he was informed that her symptoms are more likely explained by her substance abuse and the petition would likely not be upheld. Pt was willing to sign paperwork to leave AMA. Case was reviewed with Dr. Felicitas Madden, supervising physician following the consultation. CPT Code Initial Consultation: 66850 Psych History Identifying Data 28-year-old female admitted medically on 03/11/19 due to alcohol intoxication, for treatment of impending alcohol withdrawal. Pt was reportedly requesting AMA discharge on day of consultation. Psychiatric consultation was requested to assess patient for capacity and to determine if there was criteria to continue the hospitalization based on compromised decision making or a primary psychiatric condition. Pt's case was reviewed with ICU JOSETTE, primary attending physician, assigned counseling case manager, patient's RN, and psychiatric nurse liaison. Information gathered from patient is considered to be somewhat reliable. Chief Complaint "Alright, now what can I do for you?" History of Present Illness Edna Pantoja is a 28-year-old female admitted medically on 03/11/19 for medical management of alcohol withdrawal. Pt has been seen by psychiatric consult service on several occasions, most recently on 02/15/19. During this admission, pt had initially been agreeable to transfer to an inpatient drug and alcohol r ehabilitation following medical clearance. It was reported to this provider that patient was requesting to leave AMA, having only one scheduled dose of phenobarbital remaining in the taper - scheduled for the next morning. At this time, it is reported that the patient is not considered medically cleared, as she has yet to receive the full taper prescribed. This provider received a phone call from the hospitalist NISREEN requesting this provider's assistance in discharge planning. This had followed a Code Arana on the patient due to her agitated behavior. It was also reported that visits from patient's father were likely contributing to patient's anxiety and agitation. Once arriving on the unit, this provider met with the hospitalist NISREEN (in conjunction with his PA student), primary attending, patient's RN, counseling case manager, and psychiatric nurse liaison. We reviewed ideal discharge plan, which is that patient is agreeable to stay for the duration of her medication taper, while referrals are being made to inpatient rehab facilities. Alternatives included patient having the right to leave AMA if deemed to have capacity to make that decision. If no capacity present at time of assessment, then hold patient on grounds of being incapable of making that medical decision. The appropriateness of a 302 warrant/commitment was also considered, which this provider did not feel would be likely based on initial reports. All involved expressed concern and desire to provide patient with tools to make an informed decision about discharge decision. All parties involved met with patient, with patient's permission. Pt was informed of recommendation from the medical team, that she remain admitted until she completes her phenobarbital taper and is deemed medically cleared. Risk of falls, hypotension, seizure, possible brain damage, or were clearly explained to patient should she request AMA discharge. Treatment plan was discussed in detail, including case management's plan to make referral to rehabs, and our willingness to make patient comfortable medically, within realm of safety (medications to help with anxiety, removal of monitors/IV deemed to be beneficial, but not necessary). At time of this discussion, patient was engaged in conversation. She was able to discuss recommendations clearly. She asked appropriate and insightful questions signifying her level of understanding. Lastly patient was able to communicate a choice, which at that time was a willingness to remain in the hospital until she received her final dose of phenobarbital. This provider talked to patient following the larger conversation, with only FAMILY LAW MEDIATOR and psychiatric nurse liaison present. Pt was able to communicate her current medications to this provider, reporting a history of anxiety and depression. She verbalizes that she at times wonders "What life would be like without me, would I be missed, would people be happier? Sometimes I think about it." Pt denies active suicidal ideation, stating she has never considered taking steps toward ending her own life. She denies plan or intent. She states her primary reasons to continue living include her cat, her dad, her grandmother, and her grandfather (memory of him makes her desire to make him proud). She denies homicidal ideation, symptoms suggestive of a bipolar presentation, A/V hallucinations, or other psychotic symptoms. Though patient's personality is unique, she is able to explain to this provider her reasoning for requesting discharge and desire to have monitors removed. We discussed her relationship with her father, as it was voiced by primary team that he is a large stressor. Pt states her father is a primary support for her, though at times she seems fearful when mentioning him in conversation. She states she has never believed herself to be physically harmed by her father; she does, however, describe him as "crazy." Pt was applauded on her willingness to attend rehab, and was encouraged regarding her intelligence and drive to redirect her life. At some point in the conversation, patient's attitude abruptly changed. She began packing her bags and stating she needed to peanut picker clothing from her house to take to rehab. This provider offered for her father or friends to be called to bring belongings. She was informed that if she were to leave, it would be an AMA discharge, and rehab referrals would be halted by this decision. Pt continuously stated, "I'll get my stuff and come back tomorrow." She then began requesting rides from this provider and the nurse liaison. Again, her personality is unique, but she did not at any point during our conversation appear to be psychotic, responding to internal stimuli, or seem to be delusional. Primary medical team was informed of patient's desire to be discharged AMA. Past Psychiatric History Previous Psych History: Previously saw a counselor in her teens for an eating disorder Outpatient Services: Has previously had a therapist at [facility] for D&A counseling Previous Psych Admissions: Denies History of Previous Suicide Attempt: No Past Medication Trials: Per patient reports and previous documentation 1. Xanax 2. Prozac 3. Hydroxyzine 4. Topamax 5. Naltrexone 6. Doxepin Allergies Allergy/AdvReac Type Severity Reaction Status Date / Time No Known Allergies Allergy Unverified 09/09/18 09:31 Home Medications Home Medications Medication Instructions Recorded Confirmed Type fluoxetine [Prozac] 20 mg PO DAILY 11/03/18 03/11/19 History hydroxyzine HCl 25 mg PO QID PRN 03/11/19 03/11/19 History naltrexone 50 mg PO DAILY 03/11/19 03/11/19 History topiramate [Topamax] 25 mg PO DAILY 03/11/19 03/11/19 History Family History Previous documentation suggests cannabis abuse in father Substance Abuse History Per previous documentation: pt reports history of opiate abuse. Drinking daily for about 2 years, consuming 3-4 large beers per day, beginning upon awakening. Pt has previous been to inpatient D&A rehab. Previous outpatient D&A counseling at [facility]. Personal History Living Arrangements: Home (with dad and grandmother - though suggests sneaking around to different houses frequently) Childhood: Grew up in [place]. Parents are . Her mother took her sister and left and she remained with her father. Highest Grade Completed: College (Degree in Lao and studies) Employment Status: Unemployed (recently fired from [employer]) Marital Status: Beliefs That Will Affect Care: None Patient History Medical History Tobacco use (Chronic) Depression (Chronic) Elevated LFTs (Chronic) Alcohol withdrawal seizure (Resolved) Alcoholism (Chronic) Alcohol withdrawal seizure (Inactive) Family History Mother Diabetes Social History Preferred Language: Lao Communication Ability: Effective Visual Impairment: Partially Limited Pbx Manager Required: No Beliefs That Will Affect Care: None marital status: Single marital status details: Boyfriend Current Living Situation: Family Current Living Situation Comment: lives with father Other Information That Helps Us Care for You: No Feels Safe at Home: No Is there a partner from a previous relationship who is making you feel unsafe now?: No Safety Concerns: Afraid for Self Smoking Status: Current every day smoker Tobacco Type: cigarettes Cigarettes Per Day: 2-20 Second Hand Exposure: Yes Tobacco Cessation Education Requested by Patient: No Hx Alcohol Use: Yes Alcohol type: beer and hard liquor Alcohol Intake Frequency Comment: 6-7 daily Hx Substance Use: Yes substance use type: does not use Physical Exam Psychiatric: Orientation: alert, oriented x 3 and + guarded (somewhat, varied in severity over the course of the encounter) Apperance: appropriately dressed and + disheveled Eye Contact: good eye contact Motor Behavior: steady gait and station and no abnormal motor movements (aside from mildly restless behavior) Speech: normal rate/rhythm/volume of speech Affect: + blunted affect (though does not appear overtly depressed) Mood: no depressed mood and no anxious mood Reports stable mood recently Thought Process: goal directed thought process, clear/coherent thought process and + circumstantial thought process Thought Content: + paranoid (mildly regarding nursing care, though not to psychotic proportion) and reality based without delusions Suicidal Thoughts: denies suicidal thoughts (reports general questioning of "what would life be like without me?"), denies suicidal plan and denies suicidal intent Homicidal Thoughts: denies homicidal thoughts Hallucinations: no auditory hallucinations and no visual hallucinations Cognition: attention grossly intact and language grossly intact Estimated Intelligence: consistent with education level Insight: + fair insight Displays decent insight regarding conversation, recommendation, and decisions reviewed. Limited insight into the impact of her substance abuse - though not likely related to primary psychiatric condition Judgement: + poor judgement though judgement does not appear to be inhibited by a primary psychiatric disorder Vital Signs (Past 24 Hours): Last Vital Signs Temp 37.1 C 03/14/19 10:33 Pulse 83 03/14/19 10:33 Resp 20 03/14/19 10:33 BP 104/83 03/14/19 10:33 Pulse Ox 96 03/14/19 10:33 Review of Systems Constitutional: denied Cardiovascular: denied Respiratory: denied Gastrointestinal: denied Neurological: denied Psychiatric: denies symptoms other than stated above Total of at least 10 systems reviewed, pertinent positives as above and in HPI. Results & Data Medications Administered Doxepin HCl (Sinequan) 100 mg PO [facility] Stop: 04/11/19 20:59 Last Admin: 03/13/19 21:04 Dose: 100 mg Documented by: [id number] Admin: 03/12/19 20:41 Dose: 100 mg Documented by: [id number] Fluoxetine HCl (Prozac) 40 mg PO DAILY [facility] Stop: 04/11/19 08:59 Last Admin: 03/14/19 08:42 Dose: 40 mg Documented by: [id number] Admin: 03/13/19 07:47 Dose: 40 mg Documented by: [id number] Admin: 03/12/19 09:40 Dose: 20 mg Documented by: [id number] Folic Acid (Folvite) 1 mg PO QAM [facility] Stop: 04/12/19 08:59 Last Admin: 03/14/19 08:41 Dose: 1 mg Documented by: [id number] Admin: 03/13/19 07:48 Dose: 1 mg Documented by: [id number] Magnesium Oxide (Mag-Ox) 400 mg PO BID [facility] Stop: 04/11/19 08:59 Last Admin: 03/14/19 08:41 Dose: 400 mg Documented by: [id number] Admin: 03/13/19 21:29 Dose: 400 mg Documented by: [id number] Admin: 03/13/19 07:47 Dose: 400 mg Documented by: [id number] Admin: 03/12/19 20:39 Dose: 400 mg Documented by: [id number] Admin: 03/12/19 08:17 Dose: 400 mg Documented by: [id number] Miscellaneous (Remove Nicoderm Patch) 1 ea N/A [facility] Stop: 04/11/19 20:59 Last Admin: 03/13/19 21:05 Dose: 1 ea Documented by: [id number] Admin: 03/12/19 20:41 Dose: 1 ea Documented by: [id number] Multivitamins (Multivitamin Tab) 1 tab PO QAM [facility] Stop: 04/12/19 08:59 Last Admin: 03/14/19 08:41 Dose: 1 tab Documented by: [id number] Admin: 03/13/19 07:47 Dose: 1 tab Documented by: [id number] Naltrexone HCl (Naltrexone Hcl) 50 mg PO DAILY [facility] Stop: 04/11/19 08:59 Last Admin: 03/13/19 07:47 Dose: 50 mg Documented by: [id number] Admin: 03/12/19 08:19 Dose: 50 mg Documented by: [id number] Nicotine (Nicoderm Cq) 7 mg TD QAM [facility] Stop: 04/12/19 08:59 Last Admin: 03/14/19 08:41 Dose: 7 mg Documented by: [id number] Admin: 03/13/19 07:48 Dose: 7 mg Documented by: [id number] Phenobarbital (Phenobarbital) 32.4 mg PO BID [facility] Stop: 03/15/19 09:01 Last Admin: 03/14/19 08:41 Dose: 32.4 mg Documented by: [id number] Phenobarbital Sodium (Phenobarbital Sodium) 65 mg IV Q6H PRN PRN Reason: Undecided Stop: 03/16/19 13:18 Last Admin: 03/12/19 20:41 Dose: 65 mg Documented by: [id number] Propranolol HCl (Inderal) 10 mg PO TID [facility] Stop: 04/12/19 08:59 Last Admin: 03/14/19 13:04 Dose: 10 mg Documented by: [id number] Admin: 03/14/19 08:41 Dose: 10 mg Documented by: [id number] Admin: 03/13/19 21:04 Dose: 10 mg Documented by: [id number] Admin: 03/13/19 14:23 Dose: 10 mg Documented by: [id number] Admin: 03/13/19 09:09 Dose: 10 mg Documented by: [id number] Thiamine HCl (Vitamin B-1) 100 mg PO QAM [facility] Stop: 04/12/19 08:59 Last Admin: 03/14/19 08:42 Dose: 100 mg Documented by: [id number] Admin: 03/13/19 07:46 Dose: 100 mg Documented by: [id number] Topiramate (Topamax) 25 mg PO DAILY [facility] Stop: 04/11/19 08:59 Last Admin: 03/14/19 08:42 Dose: 25 mg Documented by: [id number] Admin: 03/13/19 07:46 Dose: 25 mg Documented by: [id number] Admin: 03/12/19 08:19 Dose: 25 mg Documented by: [id number]
--- NOTE | 2019-03-14 19:00 | Hospitalist Progress Note ---
Date of Service March 14, 2019 Assessment & Plan (1) Alcohol withdrawal: (1) Alcohol Withdrawal -- on phenol barbital taper EEG: This is a normal awake and drowsy EEG. Excessive beta activity is a normal variant and can be seen as a medication side effect, ie benzodiazepines and barbiturates. Neuro consulted: Does not recommend initiation of antiepileptics --In the afternoon, the patient became more anxious, and left her room apparently to leave the hospital ICU NISREEN Cruz, patient's RN Alise was able to leave the patient back to her room and talked to the patient Had a long discussion regarding plan of care with ICU PA Alejandro Cruz, psych service NISREEN Corrales and psych rehab liaison Patricia, corrections caseworker Otilia Dean, KARO Ruiz Then discussed at length with patient regarding plan of care which is to keep her in the hospital for medical treatment and observation, while we are working for her to transition to alcohol rehab All questions answered, plan was discussed with patient in detail and at length She agreed with this plan Patient's father updated and also agreeable with the plan --Later on after an hour, the patient again requested to leave AMA, she would like to collect her belongings and then transition to alcohol rehab Psychiatry service interview the patient and found the patient to have medical decision-making capacity to leave AMA, patient not qualified for 302 at this time Patient was able to verbalize consequences of leaving AMA and was oriented x3 Patient's father given an update as well Patient encouraged to return to the ER after collecting her belongings so she can be assisted with transition to alcohol rehab Also advised her to return to the ER immediately if with signs of alcohol withdrawal including tremors, sweating, confusion She verbalized understanding and agreement (2) Hypokalemia: -- being repleted Hypomagnesemia -resolved (3) Hypophosphatemia: - repleted (4) Depression: -Continue home dose fluoxetine which is 40 mg daily -continue home dose doxepin 100 mg qhs (5) DVT prophylaxis: -SCDs, ambulate Disposition Patient signed out AMA Will arrange for PCP follow-up at the soonest time Subjective Follow-up for alcohol withdrawal Seen with JENNA Rosario during entire encounter Patient's father also at the bedside Patient was apparently reporting that she is in a research study, and that she is been enrolled without her consent When inquired, patient states that she thought about this earlier in the day, but now is aware that it is not true She is oriented to time person and place, answers questions appropriately Denies headache, dizziness, chest pain, shortness of breath Denies tremors, sweating, hallucinations No other symptoms Discussed plan of care with patient including continuation of alcohol withdrawal protocol, and eventual transitioning to alcohol rehab, she verbalized understanding and agreement, she is comfortable with the plan Review of Systems Review of Systems: All systems reviewed & are unremarkable except as noted in HPI & below Physical Exam Physical Exam: General- oriented x 3, not in distress, speaks in sentences with no effort or accessory muscle use Eyes- anicteric Neck- no JVD Lungs- clear breath sounds bilaterally Heart- normal rate, regular rhythm; no murmurs Abdomen- normal bowel sounds, nondistended, soft, nontender Extremities- no pretibial edema, no calf tenderness No tremors Neuro- alert, oriented x 3; no gross focal neurologic deficits Skin- warm & dry Results & Data Vital Signs (Past 12 Hours) Vital Signs Temp Pulse Pulse Resp BP BP Pulse Ox 03/14/19 10:33 37.1 C 83 20 104/83 96 03/14/19 08:00 91 H 03/14/19 06:59 37.1 C 85 14 105/70 97
--- NOTE | 2019-03-14 19:10 | Discharge Summary ---
Date of Service March 14, 2019 Admission HPI Per Admitting Provider 28-year-old female who presents the ED with alcohol intoxication. Patient has a long-standing history of alcohol abuse and was most recently admitted to [facility] 02/12 through 02/16 for alcohol intoxication and withdrawal. Patient signed out AMA from that admission. She reports that she received a dose of Ativan and it " did not agree with me and made me go crazy". She subsequently pulled out her own IV and left the hospital and was picked up by police and returned home to her father. Since returning home, patient reports she has had multiple episodes where she would drink 3 to 4 days in a row and then would stop. No alcohol withdrawal seizures. She reports she typically drinks very large, fruity drinks. Patient was seen by her PCP and she was placed on naltrexone and Topamax. Patient does feel as though the naltrexone is helping with her cravings a little bit. 2 nights ago, patient was found passed out in the back room at work. EMS and police were called however patient denied medical evaluation at that time. Patient reports she chronically suffers with depression. She reports she constantly has suicidal thoughts however does not have a plan or attempts.. No homicidal thoughts or plans. Patient is noted to have faint bruising over her right submandibular area. When asked about this, she tells me "you do not need to worry about that ." Patient reports a very poor appetite. Denies abdominal pain, nausea, vomiting, diarrhea. No other recent illnesses, fevers, chills. She denies chest pain shortness of breath. No lightheadedness, dizziness, diaphoresis, syncopal events. No urinary symptoms. In the ED, patient was found to have a blood alcohol level of 320. Electrolyte abnormalities including potassium 2.9 and phosphorus 0.8. Patient was given banana bag, IV potassium replacement, IV K-Phos replacement. Admission Exam Per Admitting Provider Constitutional: WD/WN, vitals as above Eyes: PERRL, conjunctivae normal, anicteric sclerae ENMT: external ear and nose normal, oropharynx normal Respiratory: normal respiratory effort, lungs clear to auscultation Cardiovascular: Rate/Rhythm: regular rhythm and + tachycardic Vessels: normal peripheral pulses Extremities: no edema Gastrointestinal (Abdomen): normal bowel sounds, soft, nontender, no hepatosplenomegaly Musculoskeletal: no cyanosis or clubbing, extremities motor strength 5/5 Skin: no rashes, warm and dry Neurologic: PERRL, EOMI, accommodation nl, no face palsy, no dysarthria Psychiatric: A+Ox3, euthymic affect Principal Diagnosis Alcohol intoxication, alcohol withdrawal seizures Discharge Exam General- oriented x 3, not in distress, speaks in sentences with no effort or accessory muscle use Eyes- anicteric Neck- no JVD Lungs- clear breath sounds bilaterally Heart- normal rate, regular rhythm; no murmurs Abdomen- normal bowel sounds, nondistended, soft, nontender Extremities- no pretibial edema, no calf tenderness No tremors Neuro- alert, oriented x 3; no gross focal neurologic deficits Skin- warm & dry Discharge Data Allergies Allergy/AdvReac Type Severity Reaction Status Date / Time No Known Allergies Allergy Unverified 09/09/18 09:31 Consultations 03/11/19 21:38 ED Decision to Admit Stat 03/11/19 23:33 Consult Case Management - Discharge Planning Routine 03/12/19 19:30 Consult Neurology Routine 03/14/19 18:38 Consult Psychiatry Routine Hospital Course (1) Alcohol withdrawal: (1) Alcohol Withdrawal --Patient admitted with alcohol intoxication During hospital stay, was noted to have unresponsive episodes, felt to be alcohol withdrawal seizures, Transfer to intensive care unit, placed on phenol barbital taper Patient's mental status improved gradually EEG: This is a normal awake and drowsy EEG. Excessive beta activity is a normal variant and can be seen as a medication side effect, ie benzodiazepines and barbiturates. Neuro consulted: Does not recommend initiation of antiepileptics --On 03/14/2019, the patient became more anxious, and left her room apparently to leave the hospital ICU NISREEN Cruz, patient's RN Alise was able to leave the patient back to her room and talked to the patient Had a long discussion regarding plan of care with ICU NISREEN Cruz, psych service NISREEN Corrales and psych science liaison Patricia, correctional casework specialist KARO Bass Then discussed at length and in detail with patient regarding plan of care which is to keep her in the hospital for medical treatment and observation, while we are working for her to transition to alcohol rehab All questions answered, plan was discussed with patient in detail and at length; above events took at least an hour planning of patient care and discussing with patient She agreed with this plan Patient's father updated and also agreeable with the plan --Later on after an hour, the patient again requested to leave AMA, she would like to collect her belongings and then transition to alcohol rehab Psychiatry service interview the patient and found the patient to have medical decision-making capacity to leave AMA, patient not qualified for 302 at this time Patient was able to verbalize consequences of leaving AMA and was oriented x3 Patient's father given an update as well Patient encouraged to return to the ER after collecting her belongings so she can be assisted with transition to alcohol rehab Also advised her to return to the ER immediately if with signs of alcohol withdrawal including tremors, sweating, confusion She verbalized understanding and agreement (2) Hypokalemia: -- being repleted Hypomagnesemia -resolved (3) Hypophosphatemia: - repleted (4) Depression: -Continue home dose fluoxetine which is 40 mg daily -continue home dose doxepin 100 mg qhs (5) DVT prophylaxis: -SCDs, ambulate Disposition Patient signed out AMA Will arrange for PCP follow-up at the soonest time Total Time Total Time Spent Total Time Spent (In Minutes): 120 MINUTES Discharge Plan Discharge Items Patient Disposition: Against Medical Advice Admission Data Admit Date/Time: 03/11/19 22:01 Service: Telemetry Other DC Date/Time DO NOT enter until pt leaves facility: 03/14/19 17:30
[2019-03-15] MEDS ORDERED: GABAPENTIN 600 MG TAB PO SCH (12:00)
== END 2019-03-14 17:30 | disposition left against medical advice (07) | DRG 894 ==
LOC: ED 19:13 → 2E 22:01 → SUATTDRO 22:01 → 2E 23:05 → 1E 03-12 12:19 → 2E 03-13 18:25

== ENCOUNTER 2019-09-25 19:57 | Inpatient (IN) ==
[2019-09-25] MEDS ORDERED: ONDANSETRON INJ 2 MG/ML 2 ML VIAL IV STA (21:22)
[2019-09-25] MEDS ORDERED: SODIUM CHLORIDE 0.9% 1000ML 1,000 ML IV ONE ×2 (21:22→23:06)
[2019-09-25] MEDS ORDERED: MoRPHine SULFATE 4 MG/ML 1 ML CARP\\VIAL IV STA (21:22)
[2019-09-25 21:51] LABS: Appearance Urine Turbid (Clear); Bacteria Urine Automated 2+ (Negative); Blood Urine Negative (Negative); Color Urine Dark Yellow; Epithelial Cell Urine Auto >30 /lpf (0-5); Glucose Urine UA Negative (Negative); Ketones Urine Negative (Negative); Leukocyte Esterase Urine Trace (Negative); Nitrite Urine Negative (Negative); Protein Urine Trace (Negative); Specific Gravity Urine 1.029 (1.000-1.030); Urobilinogen Urine Negative (Negative)
[2019-09-25 21:53] LABS: Bilirubin Urine Negative (Negative); Ictotest Urine Negative (Negative)
[2019-09-25 21:59] LABS: RBC Urine Automated 0-4 /hpf (0-4)
--- NOTE | 2019-09-25 23:02 | CT Scan Report ---
CT head/brain wo con CLINICAL HISTORY: Head pain status post trauma COMPARISON STUDY: 09/09/2018 TECHNIQUE: Axial CT of the brain is performed from the vertex to the skull base. IV contrast was not administered for this examination. A dose lowering technique was utilized adhering to the principles of ALARA. CT DOSE: 537.48 mGy.cm FINDINGS: No intra or extra-axial mass lesions are visualized. There is no CT evidence of acute cortical infarc tion. There is no evidence of midline shift. There is no acute hemorrhage. No calvarial fractures ar e visualized. There is no evidence of pathologic ventricular dilatation. There is a left maxillary sinus air-fluid level. IMPRESSION: 1. Left maxillary sinus air-fluid level 2. Otherwise normal noncontrast head CT. Electronically signed by: Mathieu Castillo M.D. 09/25/2019 10:59 PM
[2019-09-25 23:04] LABS: Albumin Globulin Ratio 0.3 (0.9-2); Albumin Level 1.5 gm/dl (3.4-5.0); Bilirubin,Total 1.7 mg/dl (0.2-1); Calcium 9.7 mg/dl (8.5-10.1); Creatinine Clr Calc Pharmacy 8.9 ml/min; Est GFR (African American) 7.1; Est GFR (Non-African American) 6.1; Globulin 5.5 gm/dl (2.5-4.0); Potassium 2.6 mmol/L (3.5-5.1)
--- NOTE | 2019-09-25 23:13 | XRay Report ---
XR chest 2V PA/lateral CLINICAL HISTORY: Right-sided chest pain POSSIBLE PNEUMONIA COMPARISON STUDY: No previous studies for comparison. FINDINGS: There is extensive right upper lobe pulmonary consolidation with air bronchograms consisten t with pneumonia. There is a suspected small right pleural effusion. The left lung is clear. The hear t is normal in size.[ IMPRESSION: 1. Extensive right upper lobe pulmonary consolidation consistent with pneumonia. Please correlate wit h appropriate signs and symptoms. 2. Small right pleural effusion 3. Films subsequent to treatment are recommended in follow-up Electronically signed by: Mathieu Castillo M.D. 09/25/2019 11:12 PM
[2019-09-25] MEDS ORDERED: PIPERACILL/TAZOBAC CONSULT ACTIVE PRN (23:15)
[2019-09-25] MEDS ORDERED: PIPERACILLIN/TAZOBACTAM 4.5 GM/120 ML BAG IV ONE (23:15)
[2019-09-26 00:20] LABS: Hematocrit (blood only) 32.8 % (37-47); Hemoglobin 12.2 g/dL (12.0-16.0); Mean Corpuscular Hemoglobin 40.7 pg (25-34); Mean Corpuscular Hgb Conc 37.2 g/dL (32-36); Mean Corpuscular Volume 109.3 fL (80-100); Platelet Count 53 K/uL (130-400); RDW Coefficient of Variation 13.9 % (11.5-14.5); RDW Standard Deviation 54.9 fL (36.4-46.3); White Blood Count 29.32 K/uL (4.8-10.8)
[2019-09-26] MEDS ORDERED: POTASSIUM CHLORIDE 10 MEQ TABCR PO STA (00:25)
[2019-09-26] MEDS ORDERED: LORazepam 1 MG/2 ML VIAL IV PRN (00:27)
[2019-09-26 00:31] LABS: ALC (manual) 0.26 K/uL (1.2-3.4); Dohle Bodies 1+; Giant Platelets 2+; Lymphocytes # (manual) 0.26 K/uL (1.2-3.4); Lymphocytes % (manual) 0.9 %; Metamyelocytes # (manual) 0.26 K/uL (0-0); Metamyelocytes % (manual) 0.9 %; Monocytes # (manual) 0.53 K/uL (0.11-0.59); Monocytes % (manual) 1.8 %; Myelocytes # (manual) 0.26 K/uL (0-0); Myelocytes % (manual) 0.9 %; Neutrophils % (manual) 95.5 %; Platelet Estimate Decreased (Normal); Toxic Granulation 1+; Toxic Vacuolation 1+
[2019-09-26 00:48] LABS: BUN Creatinine Ratio 15.3 (10-20); Calcium 8.8 mg/dl (8.5-10.1); Creatinine Clr Calc Pharmacy 9.7 ml/min; Est GFR (African American) 7.8; Est GFR (Non-African American) 6.7
[2019-09-26 00:50] LABS: Potassium 2.4 mmol/L (3.5-5.1)
[2019-09-26 00:57] LABS: Thyroid Stimulating Hormone 0.723 uIu/ml (0.300-4.500)
[2019-09-26] MEDS ORDERED: THIAMINE HCL 100 MG in SYRINGE 9 ML IV ONE (01:00)
[2019-09-26 01:15] LABS: Partial Thromboplastin Time 28.3 Seconds (21.0-31.0)
--- NOTE | 2019-09-26 01:15 | Emergency Department Note ---
Entered by Mohini Bradley acting as a scribe for History of Present Illness General Chief complaint: Shortness of Breath/Dyspnea Stated complaint: RIGHT SIDE PAIN Time Seen by Provider: 09/25/19 21:12 Source: patient History of Present Illness Provider complaint: Right-sided abdominal pain Onset (ago): hour(s) (7) Location: abdomen Radiation: other (Into chest) Severity: severe Pain Consistency: + constant Maximum Pain Intensity: 8 Relieved By: + none Exacerbated By: + other (breathing, lying down) Associated symptoms: + denies other symptoms (blood in urine, black stool), + nausea/vomiting, + shortness of breath and + other (diarrhea, seizure); no fever/chills and no headaches The patient is a 29 year old female who presents to the Emergency Room with complaints of constant right-sided abdominal pain beginning 7 hours ago. The patient states the pain is worse with breathing and lying down. She report shortness of breath along with the pain. The patient denies a headache and fever. The patient states she has been dealing with alcohol withdrawal and has not been able to keep any food down. She states she vomited once today. She reports flaky diarrhea, but denies black stool. She denies blood in her urine, previous abdominal surgeries, and the chance of . She notes her last drink was last month. The patient states she has been drinking Pediasure. The patient reports she had a seizure about 3 weeks ago while walking around. She states that she has had withdrawal seizures in the past. She states she did not go to the hospital to get checked out. Home Medications Home Medications Medication Instructions Recorded Confirmed Type fluoxetine [Prozac] 60 mg PO DAILY 11/03/18 09/25/19 History aripiprazole [Abilify] 5 mg PO DAILY 09/25/19 09/25/19 History Allergies Allergy/AdvReac Type Severity Reaction Status Date / Time No Known Allergies Allergy Unverified 09/25/19 23:37 Past Med/Surg History Medical History Alcohol withdrawal seizure Alcohol withdrawal seizure (Inactive) Alcoholism Depression Elevated LFTs Tobacco use Surgical History No pertinent past surgical history Family History Mother Diabetes Social History (Reviewed 09/25/19 @ 23:59 by Mohini Burns Preferred Language: Marshallese Communication Ability: Effective Visual Impairment: Partially Limited Service Tech/Welder Required: No Beliefs That Will Affect Care: None marital status: Single marital status details: Boyfriend Current Living Situation: Family Current Living Situation Comment: lives with father Feels Safe at Home: Yes Smoking Status: Current every day smoker Tobacco Type: cigarettes ; Cigarettes Per Day: 2-20 ; Second Hand Exposure: Yes ; Hx Alcohol Use: Yes Alcohol type: beer and hard liquor Alcohol Intake Frequency Comment: 6-7 daily Hx Substance Use: Yes substance use type: does not use Last Used Substance: Hours (ago) Review of Systems See HPI for pertinent positives & negatives. and A total of 10 systems reviewed and were otherwise negative Physical Exam Vital Signs Vital Signs - 24 hr 09/25/19 19:59 09/25/19 21:22 09/25/19 21:46 Temperature 36.4 C L Temperature Source Oral Pulse Rate 122 H 101 H Pulse Rate [Apical] Pulse Rate from SpO2 Sensor Respiratory Rate 20 32 H Respiratory Effort / Characteristics Non-Labored Spontaneous Respiratory Depth Normal Blood Pressure 102/70 Blood Pressure Mean 80 Pulse Oximetry 90 Oxygen Delivery Method Room Air Room Air Oxygen Flow Rate Sepsis Recent Fever Within 48 Hours No Sepsis New/Unexplained Change in Mental Status No Sepsis Action Taken by Nursing No Action Required 09/25/19 21:47 09/25/19 22:00 09/25/19 23:26 Temperature Temperature Source Pulse Rate 106 H 105 H 97 H Pulse Rate [Apical] Pulse Rate from SpO2 Sensor 104 H Respiratory Rate 24 23 17 Respiratory Effort / Characteristics Respiratory Depth Blood Pressure 102/58 L 99/66 L Blood Pressure Mean 74 76 Pulse Oximetry 90 Oxygen Delivery Method Oxygen Flow Rate Sepsis Recent Fever Within 48 Hours Sepsis New/Unexplained Change in Mental Status Sepsis Action Taken by Nursing 09/25/19 23:27 09/25/19 23:30 09/25/19 23:31 Temperature Temperature Source Pulse Rate 94 H 95 H 92 H Pulse Rate [Apical] Pulse Rate from SpO2 Sensor 94 H 94 H 92 H Respiratory Rate 17 25 H 17 Respiratory Effort / Characteristics Respiratory Depth Blood Pressure 116/77 Blood Pressure Mean 83 Pulse Oximetry 90 92 91 Oxygen Delivery Method Oxygen Flow Rate Sepsis Recent Fever Within 48 Hours Sepsis New/Unexplained Change in Mental Status Sepsis Action Taken by Nursing 09/26/19 00:00 09/26/19 00:15 09/26/19 00:30 Temperature Temperature Source Pulse Rate 90 98 H 93 H Pulse Rate [Apical] 93 H Pulse Rate from SpO2 Sensor 92 H 95 H Respiratory Rate 18 16 21 Respiratory Effort / Characteristics Non-Labored Respiratory Depth Normal Blood Pressure 124/85 120/73 Blood Pressure Mean 88 84 Pulse Oximetry 93 93 Oxygen Delivery Method Room Air Oxygen Flow Rate Sepsis Recent Fever Within 48 Hours Sepsis New/Unexplained Change in Mental Status Sepsis Action Taken by Nursing 09/26/19 00:31 09/26/19 00:45 09/26/19 01:00 Temperature Temperature Source Pulse Rate 91 H 83 88 Pulse Rate [Apical] Pulse Rate from SpO2 Sensor 91 H 89 90 Respiratory Rate 23 30 H 24 Respiratory Effort / Characteristics Respiratory Depth Blood Pressure 122/73 113/70 Blood Pressure Mean 82 80 Pulse Oximetry 90 91 88 L Oxygen Delivery Method Room Air Oxygen Flow Rate Sepsis Recent Fever Within 48 Hours Sepsis New/Unexplained Change in Mental Status Sepsis Action Taken by Nursing 09/26/19 01:01 09/26/19 01:15 Temperature Temperature Source Pulse Rate 91 H 96 H Pulse Rate [Apical] Pulse Rate from SpO2 Sensor 90 97 H Respiratory Rate 27 H 22 Respiratory Effort / Characteristics Respiratory Depth Blood Pressure 119/75 Blood Pressure Mean 90 Pulse Oximetry 90 97 Oxygen Delivery Method Nasal Cannula Oxygen Flow Rate 2 Sepsis Recent Fever Within 48 Hours Sepsis New/Unexplained Change in Mental Status Sepsis Action Taken by Nursing Constitutional: Vital signs reviewed. Eyes: Pupils are equal round reactive to light. Conjunctiva are noninjected. Subconjunctival hemorrhage in the right eye. Ecchymosis under left eye. No facial tenderness. ENT: Pharynx is clear without erythema or exudate. Mucous membranes are moist. Neck supple without meningeal signs. Respiratory: Rhonchi at right base, otherwise clear. Breath sounds are equal bilaterally. Cardiovascular: Regular rate and rhythm. No rubs or gallops. GI: Right upper quadrant tenderness without Quintero's Sign. Soft, and nondistended. Bowel sounds are present. Musculoskeletal: No midline tenderness. No peripheral edema. No lower extremity tenderness. Integumentary: No cyanosis. Neurological: The patient is awake and alert. Cranial nerves II-XII are intact. Motor is 5 out of 5 all extremities. Sensation is intact to light touch all extremities. Normal speech. No pronator drift. No limb ataxia. Psychiatric: Normal affect. Course Course 2114: Past medical records reviewed. The patient was evaluated in room C09. A complete history and physical exam was performed. 2340: Upon reevaluation, the patient states her pain is now all in the left side of her chest. She states she has no abdominal tenderness. 2355: Upon reevaluation, I discussed the US results with the patient. She is waiting to get a second round of blood cultures in order to be given antibiotics. 0018: Upon reevaluation, I discussed findings and results with the patient. She verbalized agreement of the treatment plan. [facility] The patient will be evaluated for further management and care. Administered Medications Discontinued Medications Sodium Chloride (Nss 1000ml) 1,000 mls @ 999 mls/hr IV .Q1H1M ONE Stop: 09/25/19 22:22 Last Infusion: 09/26/19 00:32 Dose: 0 mls/hr Documented by: [id number] Admin: 09/25/19 22:15 Dose: 999 mls/hr Documented by: [id number] Sodium Chloride (Nss 1000ml) 1,000 mls @ 999 mls/hr IV .Q1H1M ONE Stop: 09/26/19 00:06 Last Infusion: 09/26/19 01:22 Dose: 0 mls/hr Documented by: [id number] Admin: 09/26/19 00:17 Dose: 999 mls/hr Documented by: [id number] Piperacillin Sod/Tazobactam Sod (Zosyn) 4.5 gm in 120 mls @ 240 mls/hr IV NOW ONE Stop: 09/25/19 23:44 Last Infusion: 09/26/19 01:01 Dose: 0 mls/hr Documented by: [id number] Admin: 09/26/19 00:17 Dose: 240 mls/hr Documented by: [id number] Thiamine HCl 100 mg/ Syringe 10 mls @ 2 mls/min IV NOW ONE Stop: 09/26/19 01:04 Last Admin: 09/26/19 01:04 Dose: 2 mls/min Documented by: [id number] Morphine Sulfate (Morphine Sulfate) 4 mg IV NOW STA Stop: 09/25/19 21:23 Last Admin: 09/25/19 22:15 Dose: 4 mg Documented by: [id number] Ondansetron HCl (Zofran) 4 mg IV NOW STA Stop: 09/25/19 21:23 Last Admin: 09/25/19 22:15 Dose: 4 mg Documented by: [id number] Potassium Chloride (Klor-Con M10) 50 meq PO NOW STA Stop: 09/26/19 00:26 Last Admin: 09/26/19 01:03 Dose: 50 meq Documented by: [id number] Critical Care Time Critical Care Time: Yes Total Critical Care Time: 35 I have personally spent approximately 35 minutes of critical care time in the direct management of this patient. This includes bedside care, interpretation of diagnostic studies, and testing, discussion with consultants, patient, and family members, and other required patient management activities. This 35 minutes is in excess of all separately billable procedures. Medical Decision Making Differential Diagnosis Differential diagnosis: gall stones, cholecystitis, pancreatitis, PUD, pneumonia, colitis, skull fracture Medical Records Attestation: I reviewed the patient's medical records. I did perform a limited focused review of portions of the patient's old chart on the electronic medical record. The patient has had no recent pertinent visits to this hospital. Home Medications Current Medication List: was personally reviewed by me Laboratory Data Attestation: I reviewed the patient's lab results. Result diagrams: 09/25/19 23:40 09/25/19 23:42 Lab Results 09/25/19 09/25/19 09/25/19 Range/Units 21:10 21:10 21:10 WBC RBC Hgb Hct MCV MCH MCHC RDW Std Deviation RDW Coeff of Vinod Plt Count MPV Immature Gran % (Auto) Neut % (Auto) Lymph % (Auto) [place] % (Auto) Eos % (Auto) Baso % (Auto) Immature Gran # (Auto) Neut # (Auto) Lymph # (Auto) [place] # (Auto) Eos # (Auto) Baso # (Auto) Absolute Nucleated RBC Nucleated RBC % (auto) Neutrophils % (Manual) Band Neutrophils % Lymphocytes % (Manual) Prolymphocyte % Reactive Lymphs % (Man) Monocytes % (Manual) Eosinophils % (Manual) Basophils % (Manual) Metamyelocytes % (Man) Myelocytes % (Man) Promyelocytes % (Man) Blast Cells % (Manual) Plasma Cell % (Manual) Other Cells % Nucleated RBC % Neutrophils # (Manual) Band Neutrophils # Total Absolute Neuts Lymphocytes # (Manual) Prolymphocyte # Reactive Lymphs # Total Abs Lymphocytes Monocytes # (Manual) Eosinophils # (Manual) Basophils # (Manual) Metamyelocytes # (Man) Myelocytes # (Manual) Promyelocytes # (Man) Blast Cells # (Man) Plasma Cell # (Manual) Other Cells # Nucleated RBCs # (Man) Hypersegmented Neuts Hyposegmented Neuts Hypogranular Neuts Large Granular Lymphs # Lrg Granular Lymphs Hairy Cells Smudge Cells Toxic Granulation Toxic Vacuolation Dohle Bodies Santos Rods Platelet Estimate Hypogranular Platelets Clumped Platelets Giant Platelets Platelet Satelliting RBC Morphology Polychromasia Hypochromasia Poikilocytosis Basophilic Stippling Anisocytosis Microcytosis Macrocytosis Spherocytes Pappenheimer Bodies Sickle Cells Target Cells Tear Drop Cells Ovalocytes Stomatocytes Soni-Neihart Bodies Echinocytes Acanthocytes (Spur) Rouleaux RBC Agglutinates Schistocytes RBC Morph Comment Sezary Cell APTT (21.0-31.0) Seconds PTT Ratio Sodium (136-145) mmol/L Potassium (3.5-5.1) mmol/L Chloride (98-107) mmol/L Carbon Dioxide (21-32) mmol/L Anion Gap (3-11) BUN (7-18) mg/dl Creatinine (0.6-1.2) mg/dl Est Cr Clr Drug Dosing ml/min Est GFR ( Amer) Est GFR (Non-Af Amer) BUN/Creatinine Ratio (10-20) Glucose (70-99) mg/dl Osmolality (280-300) mOsm/kg Lactate (0.4-2.0) mmol/L Calcium (8.5-10.1) mg/dl Magnesium (1.8-2.4) mg/dl Total Bilirubin (0.2-1) mg/dl AST (15-37) U/L ALT (12-78) U/L Alkaline Phosphatase (45-117) U/L Total Creatine Kinase (26-192) U/L Total Protein (6.4-8.2) gm/dl Albumin (3.4-5.0) gm/dl Globulin (2.5-4.0) gm/dl Albumin/Globulin Ratio (0.9-2) Lipase (73-393) U/L TSH (0.300-4.500) uIu/ml HCG, Qual (Negative) Specimen Hemolysis Urine Color Dark Yellow Urine Appearance Turbid A (Clear) Urine pH 5.0 (4.5-7.5) Ur Specific [place] 1.029 (1.000-1.030) Urine Protein Trace H (Negative) Urine Glucose (UA) Negative (Negative) Urine Ketones Negative (Negative) Urine Blood Negative (Negative) Urine Nitrite Negative (Negative) Urine Bilirubin Negative (Negative) Urine Urobilinogen Negative (Negative) Ur Leukocyte Esterase Trace H (Negative) Urine WBC (Auto) 10-30 H (0-5) /hpf Urine RBC (Auto) 0-4 (0-4) /hpf U Hyaline Cast (Auto) 1-5 (0-5) /lpf U Epithel Cells (Auto) >30 H (0-5) /lpf Urine Bacteria (Auto) 2+ H (Negative) Granular Casts 5-10 H (0) /lpf Urine Yeast Not Reportable POC Ur Test NEG (NEG) Urine Opiates Screen Neg (Neg) Ur Methadone, Qual Neg (Neg) Urine Barbiturates Neg (Neg) Ur Phencyclidine (PCP) Neg (Neg) U Amphetamin/Meth Scrn Neg (Neg) MDMA (Ecstasy) Screen Neg (Neg) U Benzodiazepines Scrn Neg (Neg) Ur Cocaine Metabolite Neg (Neg) U Marijuana (THC) Screen Neg (Neg) Ethyl Alcohol mg/dL (0-3) mg/dl 09/25/19 09/25/19 09/25/19 Range/Units 22:10 22:10 22:10 WBC Cancelled RBC Cancelled Hgb Cancelled Hct Cancelled MCV Cancelled MCH Cancelled MCHC Cancelled RDW Std Deviation Cancelled RDW Coeff of Vinod Cancelled Plt Count Cancelled MPV Cancelled Immature Gran % (Auto) Cancelled Neut % (Auto) Cancelled Lymph % (Auto) Cancelled [place] % (Auto) Cancelled Eos % (Auto) Cancelled Baso % (Auto) Cancelled Immature Gran # (Auto) Cancelled Neut # (Auto) Cancelled Lymph # (Auto) Cancelled [place] # (Auto) Cancelled Eos # (Auto) Cancelled Baso # (Auto) Cancelled Absolute Nucleated RBC Cancelled Nucleated RBC % (auto) Cancelled Neutrophils % (Manual) Cancelled Band Neutrophils % Cancelled Lymphocytes % (Manual) Cancelled Prolymphocyte % Cancelled Reactive Lymphs % (Man) Cancelled Monocytes % (Manual) Cancelled Eosinophils % (Manual) Cancelled Basophils % (Manual) Cancelled Metamyelocytes % (Man) Cancelled Myelocytes % (Man) Cancelled Promyelocytes % (Man) Cancelled Blast Cells % (Manual) Cancelled Plasma Cell % (Manual) Cancelled Other Cells % Cancelled Nucleated RBC % Cancelled Neutrophils # (Manual) Cancelled Band Neutrophils # Cancelled Total Absolute Neuts Cancelled Lymphocytes # (Manual) Cancelled Prolymphocyte # Cancelled Reactive Lymphs # Cancelled Total Abs Lymphocytes Cancelled Monocytes # (Manual) Cancelled Eosinophils # (Manual) Cancelled Basophils # (Manual) Cancelled Metamyelocytes # (Man) Cancelled Myelocytes # (Manual) Cancelled Promyelocytes # (Man) Cancelled Blast Cells # (Man) Cancelled Plasma Cell # (Manual) Cancelled Other Cells # Cancelled Nucleated RBCs # (Man) Cancelled Hypersegmented Neuts Cancelled Hyposegmented Neuts Cancelled Hypogranular Neuts Cancelled Large Granular Lymphs Cancelled # Lrg Granular Lymphs Cancelled Hairy Cells Cancelled Smudge Cells Cancelled Toxic Granulation Cancelled Toxic Vacuolation Cancelled Dohle Bodies Cancelled Santos Rods Cancelled Platelet Estimate Cancelled Hypogranular Platelets Cancelled Clumped Platelets Cancelled Giant Platelets Cancelled Platelet Satelliting Cancelled RBC Morphology Cancelled Polychromasia Cancelled Hypochromasia Cancelled Poikilocytosis Cancelled Basophilic Stippling Cancelled Anisocytosis Cancelled Microcytosis Cancelled Macrocytosis Cancelled Spherocytes Cancelled Pappenheimer Bodies Cancelled Sickle Cells Cancelled Target Cells Cancelled Tear Drop Cells Cancelled Ovalocytes Cancelled Stomatocytes Cancelled Soni-Neihart Bodies Cancelled Echinocytes Cancelled Acanthocytes (Spur) Cancelled Rouleaux Cancelled RBC Agglutinates Cancelled Schistocytes Cancelled RBC Morph Comment Cancelled Sezary Cell Cancelled APTT (21.0-31.0) Seconds PTT Ratio Sodium 119 L* (136-145) mmol/L Potassium 2.6 L (3.5-5.1) mmol/L Chloride 75 L (98-107) mmol/L Carbon Dioxide 24 (21-32) mmol/L Anion Gap 20.0 H (3-11) BUN 123 H (7-18) mg/dl Creatinine 8.16 H* (0.6-1.2) mg/dl Est Cr Clr Drug Dosing 8.9 ml/min Est GFR ( Amer) 7.1 Est GFR (Non-Af Amer) 6.1 BUN/Creatinine Ratio 15.0 (10-20) Glucose 78 (70-99) mg/dl Osmolality (280-300) mOsm/kg Lactate (0.4-2.0) mmol/L Calcium 9.7 (8.5-10.1) mg/dl Magnesium (1.8-2.4) mg/dl Total Bilirubin 1.7 H (0.2-1) mg/dl AST 42 H (15-37) U/L ALT 15 (12-78) U/L Alkaline Phosphatase 213 H (45-117) U/L Total Creatine Kinase (26-192) U/L Total Protein 7.0 (6.4-8.2) gm/dl Albumin 1.5 L (3.4-5.0) gm/dl Globulin 5.5 H (2.5-4.0) gm/dl Albumin/Globulin Ratio 0.3 L (0.9-2) Lipase 26 L (73-393) U/L TSH (0.300-4.500) uIu/ml HCG, Qual Negative (Negative) Specimen Hemolysis Cancelled Urine Color Urine Appearance (Clear) Urine pH (4.5-7.5) Ur Specific [place] (1.000-1.030) Urine Protein (Negative) Urine Glucose (UA) (Negative) Urine Ketones (Negative) Urine Blood (Negative) Urine Nitrite (Negative) Urine Bilirubin (Negative) Urine Urobilinogen (Negative) Ur Leukocyte Esterase (Negative) Urine WBC (Auto) (0-5) /hpf Urine RBC (Auto) (0-4) /hpf U Hyaline Cast (Auto) (0-5) /lpf U Epithel Cells (Auto) (0-5) /lpf Urine Bacteria (Auto) (Negative) Granular Casts (0) /lpf Urine Yeast POC Ur Test (NEG) Urine Opiates Screen (Neg) Ur Methadone, Qual (Neg) Urine Barbiturates (Neg) Ur Phencyclidine (PCP) (Neg) U Amphetamin/Meth Scrn (Neg) MDMA (Ecstasy) Screen (Neg) U Benzodiazepines Scrn (Neg) Ur Cocaine Metabolite (Neg) U Marijuana (THC) Screen (Neg) Ethyl Alcohol mg/dL (0-3) mg/dl 09/25/19 09/25/19 09/25/19 Range/Units 23:40 23:42 23:42 WBC 29.32 H RBC 3.00 L Hgb 12.2 Hct 32.8 L MCV 109.3 H MCH 40.7 H MCHC 37.2 H RDW Std Deviation 54.9 H RDW Coeff of Vinod 13.9 Plt Count 53 L MPV Immature Gran % (Auto) Neut % (Auto) Lymph % (Auto) [place] % (Auto) Eos % (Auto) Baso % (Auto) Immature Gran # (Auto) Neut # (Auto) Lymph # (Auto) [place] # (Auto) Eos # (Auto) Baso # (Auto) Absolute Nucleated RBC Nucleated RBC % (auto) Neutrophils % (Manual) 95.5 Band Neutrophils % Lymphocytes % (Manual) 0.9 Prolymphocyte % Reactive Lymphs % (Man) Monocytes % (Manual) 1.8 Eosinophils % (Manual) Basophils % (Manual) Metamyelocytes % (Man) 0.9 Myelocytes % (Man) 0.9 Promyelocytes % (Man) Blast Cells % (Manual) Plasma Cell % (Manual) Other Cells % Nucleated RBC % Neutrophils # (Manual) 28.00 H Band Neutrophils # Total Absolute Neuts 28.00 H Lymphocytes # (Manual) 0.26 L Prolymphocyte # Reactive Lymphs # Total Abs Lymphocytes 0.26 L Monocytes # (Manual) 0.53 Eosinophils # (Manual) Basophils # (Manual) Metamyelocytes # (Man) 0.26 H Myelocytes # (Manual) 0.26 H Promyelocytes # (Man) Blast Cells # (Man) Plasma Cell # (Manual) Other Cells # Nucleated RBCs # (Man) Hypersegmented Neuts Hyposegmented Neuts Hypogranular Neuts Large Granular Lymphs # Lrg Granular Lymphs Hairy Cells Smudge Cells Toxic Granulation 1+ Toxic Vacuolation 1+ Dohle Bodies 1+ Santos Rods Platelet Estimate Decreased L Hypogranular Platelets Clumped Platelets Giant Platelets 2+ Platelet Satelliting RBC Morphology Polychromasia Hypochromasia Poikilocytosis Basophilic Stippling Anisocytosis Microcytosis Macrocytosis Spherocytes Pappenheimer Bodies Sickle Cells Target Cells Tear Drop Cells Ovalocytes Stomatocytes Soni-Neihart Bodies Echinocytes Acanthocytes (Spur) Rouleaux RBC Agglutinates Schistocytes RBC Morph Comment Sezary Cell APTT (21.0-31.0) Seconds PTT Ratio Sodium 122 L (136-145) mmol/L Potassium 2.4 L* (3.5-5.1) mmol/L Chloride 81 L (98-107) mmol/L Carbon Dioxide 24 (21-32) mmol/L Anion Gap 18.0 H (3-11) BUN 117 H (7-18) mg/dl Creatinine 7.51 H* D (0.6-1.2) mg/dl Est Cr Clr Drug Dosing 9.7 ml/min Est GFR ( Amer) 7.8 Est GFR (Non-Af Amer) 6.7 BUN/Creatinine Ratio 15.3 (10-20) Glucose 73 (70-99) mg/dl Osmolality (280-300) mOsm/kg Lactate (0.4-2.0) mmol/L Calcium 8.8 (8.5-10.1) mg/dl Magnesium 2.2 (1.8-2.4) mg/dl Total Bilirubin (0.2-1) mg/dl AST (15-37) U/L ALT (12-78) U/L Alkaline Phosphatase (45-117) U/L Total Creatine Kinase 21 L (26-192) U/L Total Protein (6.4-8.2) gm/dl Albumin (3.4-5.0) gm/dl Globulin (2.5-4.0) gm/dl Albumin/Globulin Ratio (0.9-2) Lipase (73-393) U/L TSH 0.723 (0.300-4.500) uIu/ml HCG, Qual (Negative) Specimen Hemolysis Urine Color Urine Appearance (Clear) Urine pH (4.5-7.5) Ur Specific [place] (1.000-1.030) Urine Protein (Negative) Urine Glucose (UA) (Negative) Urine Ketones (Negative) Urine Blood (Negative) Urine Nitrite (Negative) Urine Bilirubin (Negative) Urine Urobilinogen (Negative) Ur Leukocyte Esterase (Negative) Urine WBC (Auto) (0-5) /hpf Urine RBC (Auto) (0-4) /hpf U Hyaline Cast (Auto) (0-5) /lpf U Epithel Cells (Auto) (0-5) /lpf Urine Bacteria (Auto) (Negative) Granular Casts (0) /lpf Urine Yeast POC Ur Test (NEG) Urine Opiates Screen (Neg) Ur Methadone, Qual (Neg) Urine Barbiturates (Neg) Ur Phencyclidine (PCP) (Neg) U Amphetamin/Meth Scrn (Neg) MDMA (Ecstasy) Screen (Neg) U Benzodiazepines Scrn (Neg) Ur Cocaine Metabolite (Neg) U Marijuana (THC) Screen (Neg) Ethyl Alcohol mg/dL (0-3) mg/dl 09/26/19 09/26/19 09/26/19 Range/Units 00:46 00:46 00:46 WBC RBC Hgb Hct MCV MCH MCHC RDW Std Deviation RDW Coeff of Vinod Plt Count MPV Immature Gran % (Auto) Neut % (Auto) Lymph % (Auto) [place] % (Auto) Eos % (Auto) Baso % (Auto) Immature Gran # (Auto) Neut # (Auto) Lymph # (Auto) [place] # (Auto) Eos # (Auto) Baso # (Auto) Absolute Nucleated RBC Nucleated RBC % (auto) Neutrophils % (Manual) Band Neutrophils % Lymphocytes % (Manual) Prolymphocyte % Reactive Lymphs % (Man) Monocytes % (Manual) Eosinophils % (Manual) Basophils % (Manual) Metamyelocytes % (Man) Myelocytes % (Man) Promyelocytes % (Man) Blast Cells % (Manual) Plasma Cell % (Manual) Other Cells % Nucleated RBC % Neutrophils # (Manual) Band Neutrophils # Total Absolute Neuts Lymphocytes # (Manual) Prolymphocyte # Reactive Lymphs # Total Abs Lymphocytes Monocytes # (Manual) Eosinophils # (Manual) Basophils # (Manual) Metamyelocytes # (Man) Myelocytes # (Manual) Promyelocytes # (Man) Blast Cells # (Man) Plasma Cell # (Manual) Other Cells # Nucleated RBCs # (Man) Hypersegmented Neuts Hyposegmented Neuts Hypogranular Neuts Large Granular Lymphs # Lrg Granular Lymphs Hairy Cells Smudge Cells Toxic Granulation Toxic Vacuolation Dohle Bodies Santos Rods Platelet Estimate Hypogranular Platelets Clumped Platelets Giant Platelets Platelet Satelliting RBC Morphology Polychromasia Hypochromasia Poikilocytosis Basophilic Stippling Anisocytosis Microcytosis Macrocytosis Spherocytes Pappenheimer Bodies Sickle Cells Target Cells Tear Drop Cells Ovalocytes Stomatocytes Soni-Neihart Bodies Echinocytes Acanthocytes (Spur) Rouleaux RBC Agglutinates Schistocytes RBC Morph Comment Sezary Cell APTT 28.3 (21.0-31.0) Seconds PTT Ratio 1.0 Sodium (136-145) mmol/L Potassium (3.5-5.1) mmol/L Chloride (98-107) mmol/L Carbon Dioxide (21-32) mmol/L Anion Gap (3-11) BUN (7-18) mg/dl Creatinine (0.6-1.2) mg/dl Est Cr Clr Drug Dosing ml/min Est GFR ( Amer) Est GFR (Non-Af Amer) BUN/Creatinine Ratio (10-20) Glucose (70-99) mg/dl Osmolality 300 (280-300) mOsm/kg Lactate 0.9 (0.4-2.0) mmol/L Calcium (8.5-10.1) mg/dl Magnesium (1.8-2.4) mg/dl Total Bilirubin (0.2-1) mg/dl AST (15-37) U/L ALT (12-78) U/L Alkaline Phosphatase (45-117) U/L Total Creatine Kinase (26-192) U/L Total Protein (6.4-8.2) gm/dl Albumin (3.4-5.0) gm/dl Globulin (2.5-4.0) gm/dl Albumin/Globulin Ratio (0.9-2) Lipase (73-393) U/L TSH (0.300-4.500) uIu/ml HCG, Qual (Negative) Specimen Hemolysis Urine Color Urine Appearance (Clear) Urine pH (4.5-7.5) Ur Specific [place] (1.000-1.030) Urine Protein (Negative) Urine Glucose (UA) (Negative) Urine Ketones (Negative) Urine Blood (Negative) Urine Nitrite (Negative) Urine Bilirubin (Negative) Urine Urobilinogen (Negative) Ur Leukocyte Esterase (Negative) Urine WBC (Auto) (0-5) /hpf Urine RBC (Auto) (0-4) /hpf U Hyaline Cast (Auto) (0-5) /lpf U Epithel Cells (Auto) (0-5) /lpf Urine Bacteria (Auto) (Negative) Granular Casts (0) /lpf Urine Yeast POC Ur Test (NEG) Urine Opiates Screen (Neg) Ur Methadone, Qual (Neg) Urine Barbiturates (Neg) Ur Phencyclidine (PCP) (Neg) U Amphetamin/Meth Scrn (Neg) MDMA (Ecstasy) Screen (Neg) U Benzodiazepines Scrn (Neg) Ur Cocaine Metabolite (Neg) U Marijuana (THC) Screen (Neg) Ethyl Alcohol mg/dL (0-3) mg/dl 09/26/19 Range/Units 00:46 WBC RBC Hgb Hct MCV MCH MCHC RDW Std Deviation RDW Coeff of Vinod Plt Count MPV Immature Gran % (Auto) Neut % (Auto) Lymph % (Auto) [place] % (Auto) Eos % (Auto) Baso % (Auto) Immature Gran # (Auto) Neut # (Auto) Lymph # (Auto) [place] # (Auto) Eos # (Auto) Baso # (Auto) Absolute Nucleated RBC Nucleated RBC % (auto) Neutrophils % (Manual) Band Neutrophils % Lymphocytes % (Manual) Prolymphocyte % Reactive Lymphs % (Man) Monocytes % (Manual) Eosinophils % (Manual) Basophils % (Manual) Metamyelocytes % (Man) Myelocytes % (Man) Promyelocytes % (Man) Blast Cells % (Manual) Plasma Cell % (Manual) Other Cells % Nucleated RBC % Neutrophils # (Manual) Band Neutrophils # Total Absolute Neuts Lymphocytes # (Manual) Prolymphocyte # Reactive Lymphs # Total Abs Lymphocytes Monocytes # (Manual) Eosinophils # (Manual) Basophils # (Manual) Metamyelocytes # (Man) Myelocytes # (Manual) Promyelocytes # (Man) Blast Cells # (Man) Plasma Cell # (Manual) Other Cells # Nucleated RBCs # (Man) Hypersegmented Neuts Hyposegmented Neuts Hypogranular Neuts Large Granular Lymphs # Lrg Granular Lymphs Hairy Cells Smudge Cells Toxic Granulation Toxic Vacuolation Dohle Bodies Santos Rods Platelet Estimate Hypogranular Platelets Clumped Platelets Giant Platelets Platelet Satelliting RBC Morphology Polychromasia Hypochromasia Poikilocytosis Basophilic Stippling Anisocytosis Microcytosis Macrocytosis Spherocytes Pappenheimer Bodies Sickle Cells Target Cells Tear Drop Cells Ovalocytes Stomatocytes Soni-Neihart Bodies Echinocytes Acanthocytes (Spur) Rouleaux RBC Agglutinates Schistocytes RBC Morph Comment Sezary Cell APTT (21.0-31.0) Seconds PTT Ratio Sodium (136-145) mmol/L Potassium (3.5-5.1) mmol/L Chloride (98-107) mmol/L Carbon Dioxide (21-32) mmol/L Anion Gap (3-11) BUN (7-18) mg/dl Creatinine (0.6-1.2) mg/dl Est Cr Clr Drug Dosing ml/min Est GFR ( Amer) Est GFR (Non-Af Amer) BUN/Creatinine Ratio (10-20) Glucose (70-99) mg/dl Osmolality (280-300) mOsm/kg Lactate (0.4-2.0) mmol/L Calcium (8.5-10.1) mg/dl Magnesium (1.8-2.4) mg/dl Total Bilirubin (0.2-1) mg/dl AST (15-37) U/L ALT (12-78) U/L Alkaline Phosphatase (45-117) U/L Total Creatine Kinase (26-192) U/L Total Protein (6.4-8.2) gm/dl Albumin (3.4-5.0) gm/dl Globulin (2.5-4.0) gm/dl Albumin/Globulin Ratio (0.9-2) Lipase (73-393) U/L TSH (0.300-4.500) uIu/ml HCG, Qual (Negative) Specimen Hemolysis Urine Color Urine Appearance (Clear) Urine pH (4.5-7.5) Ur Specific [place] (1.000-1.030) Urine Protein (Negative) Urine Glucose (UA) (Negative) Urine Ketones (Negative) Urine Blood (Negative) Urine Nitrite (Negative) Urine Bilirubin (Negative) Urine Urobilinogen (Negative) Ur Leukocyte Esterase (Negative) Urine WBC (Auto) (0-5) /hpf Urine RBC (Auto) (0-4) /hpf U Hyaline Cast (Auto) (0-5) /lpf U Epithel Cells (Auto) (0-5) /lpf Urine Bacteria (Auto) (Negative) Granular Casts (0) /lpf Urine Yeast POC Ur Test (NEG) Urine Opiates Screen (Neg) Ur Methadone, Qual (Neg) Urine Barbiturates (Neg) Ur Phencyclidine (PCP) (Neg) U Amphetamin/Meth Scrn (Neg) MDMA (Ecstasy) Screen (Neg) U Benzodiazepines Scrn (Neg) Ur Cocaine Metabolite (Neg) U Marijuana (THC) Screen (Neg) Ethyl Alcohol mg/dL < 3.0 (0-3) mg/dl Imaging Data Radiologist's Impression: Radiology results as stated below per my review and the radiologist's interpretation: XR chest 2V PA/lateral CLINICAL HISTORY: Right-sided chest pain POSSIBLE PNEUMONIA COMPARISON STUDY: No previous studies for comparison. FINDINGS: There is extensive right upper lobe pulmonary consolidation with air bronchograms consistent with pneumonia. There is a suspected small right pleural effusion. The left lung is clear. The heart is normal in size.[ IMPRESSION: 1. Extensive right upper lobe pulmonary consolidation consistent with pneumonia. Please correlate with appropriate signs and symptoms. 2. Small right pleural effusion 3. Films subsequent to treatment are recommended in follow-up Electronically signed by: Mathieu Castillo M.D. 09/25/2019 11:[address] head/brain wo con CLINICAL HISTORY: Head pain status post trauma COMPARISON STUDY: 09/09/2018 TECHNIQUE: Axial CT of the brain is performed from the vertex to the skull base. IV contrast was not administered for this examination. A dose lowering technique was utilized adhering to the principles of ALARA. CT DOSE: 537.48 mGy.cm FINDINGS: No intra or extra-axial mass lesions are visualized. There is no CT evidence of acute cortical infarction. There is no evidence of midline shift. There is no acute hemorrhage. No calvarial fractures are visualized. There is no evidence of pathologic ventricular dilatation. There is a left maxillary sinus air-fluid level. IMPRESSION: 1. Left maxillary sinus air-fluid level 2. Otherwise normal noncontrast head CT. Electronically signed by: Mathieu Castillo M.D. 09/25/2019 10:59 PM [employer]: US Gallbladder: Echogenic liver suggesting fatty infiltration or hepatocellular disease. Hepatomegaly, 19.4 cm. Gallbladder sludge. No inflammatory or obstructive changes. Limited visualization of the pancreas. Radiologist: Blanca Craig M.D. Study ready at 23:28 and initial results transmitted at 23:31. ECG Data Attestation: I personally reviewed and interpreted this ECG as follows: Indication: + abdominal pain Rate (beats per minute): 101 Rhythm: + sinus tachycardia ECG Intervals/blocks: + Normal QRS (84 ms) and + Prolonged QT ECG ST segments: no ST elevation ECG Findings: no PVCs Blood Pressure Blood Pressure Findings: Normal blood pressure Head Trauma GCS Score: 15 MDM Narrative I did evaluate the patient as noted above. The patient is presenting with right sided abdominal pain rating into her chest. She has been coughing as well and has some rhonchi on the right chest. On exam she also has right upper quadrant tenderness without a Quintero sign. She also has had alcohol withdrawal symptoms and had a seizure 3 weeks ago but was never evaluated at a hospital. He does have signs of obvious injury to her face including a subconjunctival hemorrhage on the right side and ecchymosis under her left eye. There is no holt sign. IV access was established. The patient was placed on a continuous monitor technician. Cardiac monitoring: Indication: Chest pain and tachycardia Rate and rhythm: Sinus tachycardia rate of 101. No dysrhythmia. I did order and personally review the patient's 12-lead EKG as described above. She has a prolonged QT interval. She has sinus tachycardia. I did order and personally reviewed the images of the patient's chest x-ray as described above. She has a large right-sided consolidation of the right upper lobe. I did order blood cultures. I did treat her with Zosyn IV. I did order a urine analysis. She does not have evidence of a UTI. Urine test is negative. I did order and review the patient's blood work as noted in the electronic medical record. She has significant abnormalities including a white count of 29,000. Her sodium is 119. Creatinine is over 8. Potassium is 2.4. She is thrombocytopenic. I did order a CT of the head. I did review the images myself as well as the radiology report as described above. There is no evidence of fracture or intracranial hemorrhage. I did order an ultrasound of the right upper quadrant which did not demonstrate any gallstones. She did have some sludge. I did treat the patient with normal saline IV. I did discuss the test results with the patient. I did recommend hospitalization. I did discuss the case with the hospitalist and patient case manager. Impression & Plan Sepsis, BENJAMIN (acute kidney injury), Acute hyponatremia, Acute hypokalemia, Pneumonia, Head injury, Thrombocytopenia Discharge Plan Visit Data Chief Complaint: Shortness of Breath/Dyspnea Stated Complaint: RIGHT SIDE PAIN ED Provider: Douglas Ferrara Discharge Problem: Sepsis, BENJAMIN (acute kidney injury), Acute hyponatremia, Acute hypokalemia, Pneumonia, Head injury, Thrombocytopenia Patient Disposition: Being Evaluated by Hospitalist Forms Stand Alone Forms: My [facility] Prescriptions Prescriptions: No Action fluoxetine [Prozac] 20 mg capsule 60 mg PO DAILY RF: 0 aripiprazole [Abilify] 5 mg Tablet 5 mg PO DAILY RF: 0 Referrals Referrals: Stephenie Sandoval MD [Primary Care Provider] - Discharge Problem: Sepsis Qualifiers: Sepsis type: sepsis due to unspecified organism Sepsis acute organ dysfunction status: with acute organ dysfunction Severe sepsis acute organ dysfunction type: acute renal failure Acute renal failure type: unspecified Severe sepsis shock status: without septic shock Qualified Code(s): A41.9 - Sepsis, unspecified organism Pneumonia Qualifiers: Pneumonia type: due to unspecified organism Laterality: right Lung location: upper lobe of lung Qualified Code(s): J18.9 - Pneumonia, unspecified organism Head injury Qualifiers: Encounter type: initial encounter Qualified Code(s): S09.90XA - Unspecified injury of head, initial encounter The scribe's documentation has been prepared under my direction and personally reviewed by me in its entirety. I confirm that the note above accurately reflects all work, treatment, procedures, and medical decision making performed by me.
--- NOTE | 2019-09-26 01:23 | History & Physical Report ---
Date of Service September 26, 2019 Assessment & Plan (1) Severe sepsis: SIRS plus ARF secondary to aspiration pneumonia Hyponatremia, hypokalemia secondary to emesis/poor p.o. intake Thrombocytopenia secondary to sepsis anxiety/mood disorder, stable as per patient past alcohol abuse ongoing tobacco abuse Medical telemetry Cultures, check lactic acid Unasyn Baseline UA, careful correction of sodium, monitor creatinine response to IVF Appropriate to hold home SSRI for now given hyponatremia Nephrology consult RE hyponatremia Nicotine patch DVT prophylaxis. SCDs RE thrombocytopenia Full code History of Present Illness Chief Complaint: Shortness of breath Primary Care Provider: Stephenie Simmons MD History obtained from patient and records. Medical history significant for anxiety/mood disorder, past alcohol abuse, ongoing tobacco abuse. Recent confinement February 2019 for alcohol withdrawal. Patient signed out AGAINST MEDICAL ADVICE. Patient decided to stop drinking about 3 weeks ago. She had an unwitnessed seizure outside her home leading to some facial trauma from hitting the sidewalk. Refused ER evaluation. At home, poor appetite, nausea/emesis without abdominal pain. Junky cough symptoms with pleuritic chest pain, S OB. At least 4 tablets of OTC NSAID taken daily for aches. At the ER, patient received Zosyn for sepsis. Medical History as above Surgical History : Cataract surgery Family History : Diabetes Personal/Social history : Pack daily, past alcohol abuse, prior work for a [employer] Allergies Allergy/AdvReac Type Severity Reaction Status Date / Time No Known Allergies Allergy Unverified 09/25/19 23:37 Home Medications Home Medications Medication Instructions Recorded Confirmed Type fluoxetine [Prozac] 60 mg PO DAILY 11/03/18 09/25/19 History aripiprazole [Abilify] 5 mg PO DAILY 09/25/19 09/25/19 History Past Med/Surg History Medical History Alcohol withdrawal seizure Alcohol withdrawal seizure (Inactive) Alcoholism Depression Elevated LFTs Tobacco use Surgical History No pertinent past surgical history Family History Mother Diabetes Social History Preferred Language: Par[place] Communication Ability: Effective Visual Impairment: Partially Limited Nitroglycerin Distributor Required: No Beliefs That Will Affect Care: None marital status: Single marital status details: Boyfriend Current Living Situation: Parent Current Living Situation Comment: father Feels Safe at Home: Yes Smoking Status: Current every day smoker Tobacco Type: cigarettes ; Cigarettes Per Day: 10 ; Second Hand Exposure: Yes ; Tobacco Cessation Education Requested by Patient: No Hx Alcohol Use: Yes Alcohol type: beer and hard liquor Alcohol Intake Frequency Comment: 6-7 daily Hx Substance Use: No Review of Systems Review of Systems: As per HPI, all 10 systems reviewed, all other ROS negative Physical Exam Physical Exam: GENERAL: Slightly uncomfortable, anxious, no respiratory distress SKIN: Normal color, warm HEENT: Ecchymotic areas on the face, Angelica palpebral conjunctivae, subconjunctival hemorrhage right, no ptosis, dry buccal mucosa NECK : Supple, no tenderness CHEST : CTA, no tenderness HEART : RRR, no obvious murmurs ABDOMEN: Some distention, nontender EXTREMITIES : Abrasions on the extremities, no LE swelling/tenderness, no other conspicuous deformities noted NEUROLOGIC : Coherent, no facial asymmetry, no other gross focality Results & Data Vital Signs (Past 12 Hours) Vital Signs Temp Pulse Pulse Resp BP Pulse Ox 09/26/19 00:31 91 H 23 90 09/26/19 00:30 93 H 93 H 21 120/73 93 09/26/19 00:15 98 H 16 124/85 09/26/19 00:00 90 18 93 09/25/19 23:31 92 H 17 91 09/25/19 23:30 95 H 25 H 116/77 92 09/25/19 23:27 94 H 17 90 09/25/19 23:26 97 H 17 99/66 L 09/25/19 22:00 105 H 23 09/25/19 21:47 106 H 24 102/58 L 90 09/25/19 21:46 101 H 32 H 09/25/19 19:59 36.4 C L 122 H 20 102/70 90 Laboratory Results Laboratory Results WBC 29.32 K/uL (4.8-10.8) H 09/25/19 23:40 RBC 3.00 M/uL (4.2-5.4) L 09/25/19 23:40 Hgb 12.2 g/dL (12.0-16.0) 09/25/19 23:40 Hct 32.8 % (37-47) L 09/25/19 23:40 MCV 109.3 fL (80-100) H 09/25/19 23:40 MCH 40.7 pg (25-34) H 09/25/19 23:40 MCHC 37.2 g/dL (32-36) H 09/25/19 23:40 RDW Std Deviation 54.9 fL (36.4-46.3) H 09/25/19 23:40 RDW Coeff of Vinod 13.9 % (11.5-14.5) 09/25/19 23:40 Plt Count 53 K/uL (130-400) L 09/25/19 23:40 MPV Cancelled 09/25/19 22:10 Immature Gran % (Auto) Cancelled 09/25/19 22:10 Neut % (Auto) Cancelled 09/25/19 22:10 Lymph % (Auto) Cancelled 09/25/19 22:10 [place] % (Auto) Cancelled 09/25/19 22:10 Eos % (Auto) Cancelled 09/25/19 22:10 Baso % (Auto) Cancelled 09/25/19 22:10 Immature Gran # (Auto) Cancelled 09/25/19 22:10 Neut # (Auto) Cancelled 09/25/19 22:10 Lymph # (Auto) Cancelled 09/25/19 22:10 [place] # (Auto) Cancelled 09/25/19 22:10 Eos # (Auto) Cancelled 09/25/19 22:10 Baso # (Auto) Cancelled 09/25/19 22:10 Absolute Nucleated RBC Cancelled 09/25/19 22:10 Nucleated RBC % (auto) Cancelled 09/25/19 22:10 Neutrophils % (Manual) 95.5 % 09/25/19 23:40 Band Neutrophils % Cancelled 09/25/19 22:10 Lymphocytes % (Manual) 0.9 % 09/25/19 23:40 Prolymphocyte % Cancelled 09/25/19 22:10 Reactive Lymphs % (Man) Cancelled 09/25/19 22:10 Monocytes % (Manual) 1.8 % 09/25/19 23:40 Eosinophils % (Manual) Cancelled 09/25/19 22:10 Basophils % (Manual) Cancelled 09/25/19 22:10 Metamyelocytes % (Man) 0.9 % 09/25/19 23:40 Myelocytes % (Man) 0.9 % 09/25/19 23:40 Promyelocytes % (Man) Cancelled 09/25/19 22:10 Blast Cells % (Manual) Cancelled 09/25/19 22:10 Plasma Cell % (Manual) Cancelled 09/25/19 22:10 Other Cells % Cancelled 09/25/19 22:10 Nucleated RBC % Cancelled 09/25/19 22:10 Neutrophils # (Manual) 28.00 K/uL (1.4-6.5) H 09/25/19 23:40 Band Neutrophils # Cancelled 09/25/19 22:10 Total Absolute Neuts 28.00 K/uL (1.4-6.5) H 09/25/19 23:40 Lymphocytes # (Manual) 0.26 K/uL (1.2-3.4) L 09/25/19 23:40 Prolymphocyte # Cancelled 09/25/19 22:10 Reactive Lymphs # Cancelled 09/25/19 22:10 Total Abs Lymphocytes 0.26 K/uL (1.2-3.4) L 09/25/19 23:40 Monocytes # (Manual) 0.53 K/uL (0.11-0.59) 09/25/19 23:40 Eosinophils # (Manual) Cancelled 09/25/19 22:10 Basophils # (Manual) Cancelled 09/25/19 22:10 Metamyelocytes # (Man) 0.26 K/uL (0-0) H 09/25/19 23:40 Myelocytes # (Manual) 0.26 K/uL (0-0) H 09/25/19 23:40 Promyelocytes # (Man) Cancelled 09/25/19 22:10 Blast Cells # (Man) Cancelled 09/25/19 22:10 Plasma Cell # (Manual) Cancelled 09/25/19 22:10 Other Cells # Cancelled 09/25/19 22:10 Nucleated RBCs # (Man) Cancelled 09/25/19 22:10 Hypersegmented Neuts Cancelled 09/25/19 22:10 Hyposegmented Neuts Cancelled 09/25/19 22:10 Hypogranular Neuts Cancelled 09/25/19 22:10 Large Granular Lymphs Cancelled 09/25/19 22:10 # Lrg Granular Lymphs Cancelled 09/25/19 22:10 Hairy Cells Cancelled 09/25/19 22:10 Smudge Cells Cancelled 09/25/19 22:10 Toxic Granulation 1+ 09/25/19 23:40 Toxic Vacuolation 1+ 09/25/19 23:40 Dohle Bodies 1+ 09/25/19 23:40 Santos Rods Cancelled 09/25/19 22:10 Platelet Estimate Decreased (Normal) L 09/25/19 23:40 Hypogranular Platelets Cancelled 09/25/19 22:10 Clumped Platelets Cancelled 09/25/19 22:10 Giant Platelets 2+ 09/25/19 23:40 Platelet Satelliting Cancelled 09/25/19 22:10 RBC Morphology Cancelled 09/25/19 22:10 Polychromasia Cancelled 09/25/19 22:10 Hypochromasia Cancelled 09/25/19 22:10 Poikilocytosis Cancelled 09/25/19 22:10 Basophilic Stippling Cancelled 09/25/19 22:10 Anisocytosis Cancelled 09/25/19 22:10 Microcytosis Cancelled 09/25/19 22:10 Macrocytosis Cancelled 09/25/19 22:10 Spherocytes Cancelled 09/25/19 22:10 Pappenheimer Bodies Cancelled 09/25/19 22:10 Sickle Cells Cancelled 09/25/19 22:10 Target Cells Cancelled 09/25/19 22:10 Tear Drop Cells Cancelled 09/25/19 22:10 Ovalocytes Cancelled 09/25/19 22:10 Stomatocytes Cancelled 09/25/19 22:10 Soni-[place] Bodies Cancelled 09/25/19 22:10 Echinocytes Cancelled 09/25/19 22:10 Acanthocytes (Spur) Cancelled 09/25/19 22:10 Rouleaux Cancelled 09/25/19 22:10 RBC Agglutinates Cancelled 09/25/19 22:10 Schistocytes Cancelled 09/25/19 22:10 RBC Morph Comment Cancelled 09/25/19 22:10 Sezary Cell Cancelled 09/25/19 22:10 APTT 28.3 Seconds (21.0-31.0) 09/26/19 00:46 PTT Ratio 1.0 09/26/19 00:46 Sodium 122 mmol/L (136-145) L 09/25/19 23:42 Potassium 2.4 mmol/L (3.5-5.1) L* 09/25/19 23:42 Chloride 81 mmol/L (98-107) L 09/25/19 23:42 Carbon Dioxide 24 mmol/L (21-32) 09/25/19 23:42 Anion Gap 18.0 (3-11) H 09/25/19 23:42 BUN 117 mg/dl (7-18) H 09/25/19 23:42 Creatinine 7.51 mg/dl (0.6-1.2) H* D 09/25/19 23:42 Est Cr Clr Drug Dosing 9.7 ml/min 09/25/19 23:42 Est GFR ( Amer) 7.8 09/25/19 23:42 Est GFR (Non-Af Amer) 6.7 09/25/19 23:42 BUN/Creatinine Ratio 15.3 (10-20) 09/25/19 23:42 Glucose 73 mg/dl (70-99) 09/25/19 23:42 Lactate 0.9 mmol/L (0.4-2.0) 09/26/19 00:46 Calcium 8.8 mg/dl (8.5-10.1) 09/25/19 23:42 Total Bilirubin 1.7 mg/dl (0.2-1) H 09/25/19 22:10 AST 42 U/L (15-37) H 09/25/19 22:10 ALT 15 U/L (12-78) 09/25/19 22:10 Alkaline Phosphatase 213 U/L (45-117) H 09/25/19 22:10 Total Protein 7.0 gm/dl (6.4-8.2) 09/25/19 22:10 Albumin 1.5 gm/dl (3.4-5.0) L 09/25/19 22:10 Globulin 5.5 gm/dl (2.5-4.0) H 09/25/19 22:10 Albumin/Globulin Ratio 0.3 (0.9-2) L 09/25/19 22:10 Lipase 26 U/L (73-393) L 09/25/19 22:10 TSH 0.723 uIu/ml (0.300-4.500) 09/25/19 23:42 Specimen Hemolysis Cancelled 09/25/19 22:10 Urine Color Dark Yellow 09/25/19 21:10 Urine Appearance Turbid (Clear) A 09/25/19 21:10 Urine pH 5.0 (4.5-7.5) 09/25/19 21:10 Ur Specific [place] 1.029 (1.000-1.030) 09/25/19 21:10 Urine Protein Trace (Negative) H 09/25/19 21:10 Urine Glucose (UA) Negative (Negative) 09/25/19 21:10 Urine Ketones Negative (Negative) 09/25/19 21:10 Urine Blood Negative (Negative) 09/25/19 21:10 Urine Nitrite Negative (Negative) 09/25/19 21:10 Urine Bilirubin Negative (Negative) 09/25/19 21:10 Urine Urobilinogen Negative (Negative) 09/25/19 21:10 Ur Leukocyte Esterase Trace (Negative) H 09/25/19 21:10 Urine WBC (Auto) 10-30 /hpf (0-5) H 09/25/19 21:10 Urine RBC (Auto) 0-4 /hpf (0-4) 09/25/19 21:10 U Hyaline Cast (Auto) 1-5 /lpf (0-5) 09/25/19 21:10 U Epithel Cells (Auto) >30 /lpf (0-5) H 09/25/19 21:10 Urine Bacteria (Auto) 2+ (Negative) H 09/25/19 21:10 Granular Casts 5-10 /lpf (0) H 09/25/19 21:10 Urine Yeast Not Reportable 09/25/19 21:10 POC Ur Test NEG (NEG) 09/25/19 21:10 Ethyl Alcohol mg/dL < 3.0 mg/dl (0-3) 09/26/19 00:[address] head: 1. Left maxillary sinus air-fluid level 2. Otherwise normal noncontrast head CT. Chest x-ray: 1. Extensive right upper lobe pulmonary consolidation consistent with pneumonia. Please correlate with appropriate signs and symptoms. 2. Small right pleural effusion 3. Films subsequent to treatment are recommended in follow-up Ultrasound gallbladder initial read: Echogenic liver suggesting fatty infiltration or hepatocellular disease. Hepatomegaly. Gallbladder sludge. No inflammatory or obstructive changes EKG per my interpretation :Rate 105, sinus tachycardia, normal axis, no ischemia
[2019-09-26 01:25] LABS: Amphetamines+Metham, Urine Neg (Neg); Barbiturates, Urine Neg (Neg); Benzodiazepine, Urine Neg (Neg); Cocaine, Urine Neg (Neg); MDMA (Ecstacy), Urine Neg (Neg); Methadone, Urine Neg (Neg); Opiate, Urine Neg (Neg); Phencyclidine, Urine Neg (Neg)
[2019-09-26 01:27] LABS: Magnesium 2.2 mg/dl (1.8-2.4)
[2019-09-26 01:33] LABS: Pregnancy Test, Serum Negative (Negative)
[2019-09-26 02:03] LABS: Influenza A virus by PCR Neg for Influ A (Neg); Influenza B virus by PCR Neg for Influ B (Neg)
[2019-09-26] MEDS ORDERED: LORazepam 0.5 MG/1 ML VIAL IV PRN (02:29)
[2019-09-26] MEDS ORDERED: POTASSIUM CHLORIDE 20 MEQ TABCR PO STA ×2 (02:29→12:04)
[2019-09-26] MEDS ORDERED: PROMETHAZINE HCL 12.5 MG in SODIUM CHLORIDE 0.9% 50 ML IV PRN (02:29)
[2019-09-26] MEDS ORDERED: AMPICILLIN/SULBACTAM CONSULT ACTIVE PRN (02:44)
[2019-09-26] MEDS ORDERED: POTASSIUM CHLORIDE 40 MEQ in SODIUM CHLORIDE 0.9% 1000ML 1,000 ML IV SCH (03:00)
[2019-09-26] MEDS ORDERED: POTASSIUM CHLORIDE 20 MEQ TABCR PO ONE (03:30)
[2019-09-26] MEDS ORDERED: LORazepam 0.5 MG TAB PO STA (03:40)
[2019-09-26] MEDS ORDERED: AMPICILLIN/SULBACTAM SOD 3,000 MG in 0.9 % SODIUM CHLORIDE 100 ML IV SCH (04:00)
[2019-09-26] MEDS ORDERED: hydrOXYzine HCl 10 MG TAB PO STA (04:08)
[2019-09-26] MEDS: NICOTINE 14 MG/24 HR PATCH TD SCH ×2 (04:10→07:54)
--- NOTE | 2019-09-26 06:43 | Ultrasound Report ---
US gallbladder HISTORY: 29 years-old Female ruq pain eval for joanne acute right upper quadrant abdominal pain COMPARISON: Ultrasound of the liver 09/11/2018 TECHNIQUE: Multiple real-time sonographic images of the abdominal right upper quadrant were obtained assessing grayscale appearance and color flow FINDINGS: No focal abnormality of the imaged pancreas. Increased echogenicity of the liver with poor through tr ansmission suggests hepatic steatosis. No evidence of cirrhosis or focal hepatic mass lesion. There i s mild gallbladder distention with associated gallbladder sludge. No shadowing cholelithiasis, wall t hickening or pericholecystic fluid. Sonographic Quintero sign reported as negative. Imaged right kidney is unremarkable without hydronephrosis. Normal common bile duct, 5 mm. IMPRESSION: 1. Mild gallbladder distention is noted along with mild degree of layering sludge. No cholelithiasis or sonographic evidence of acute cholecystitis. 2. No biliary ductal dilation. 3. Increased echogenicity of the liver suggests hepatic steatosis. The above report was generated using voice recognition software. It may contain grammatical, syntax o r spelling errors. Electronically signed by: Yoshi Rawls M.D. 09/26/2019 6:41 AM
[2019-09-26] MEDS ORDERED: PIPERACILL/TAZOBAC CONSULT ACTIVE PRN (07:51)
[2019-09-26] MEDS: ARIPiprazole 5 MG TAB PO SCH (07:54)
[2019-09-26] MEDS ORDERED: DOXYCYCLINE HYCLATE 100 MG in DEXTROSE 5% 100 ML IV SCH (08:00)
[2019-09-26 08:27] LABS: Hematocrit (blood only) 29.9 % (37-47); Hemoglobin 10.8 g/dL (12.0-16.0); Mean Corpuscular Hemoglobin 39.4 pg (25-34); Mean Corpuscular Hgb Conc 36.1 g/dL (32-36); Mean Corpuscular Volume 109.1 fL (80-100); RDW Coefficient of Variation 13.9 % (11.5-14.5); RDW Standard Deviation 55.1 fL (36.4-46.3); Red Blood Count 2.74 M/uL (4.2-5.4); White Blood Count 33.65 K/uL (4.8-10.8)
[2019-09-26 08:29] LABS: Magnesium 2.3 mg/dl (1.8-2.4); Phosphorus 7.3 mg/dl (2.5-4.9)
[2019-09-26 08:35] LABS: Platelet Count 57 K/uL (130-400)
[2019-09-26 08:36] LABS: Basophils # (auto) 0.03 K/uL (0-0.2); Basophils % (auto) 0.1 %; Dohle Bodies 1+; Eosinophils # (auto) 0.03 K/uL (0-0.5); Eosinophils % (auto) 0.1 %; Immature Granulocytes # (auto) 0.75 K/uL (0.00-0.02); Immature Granulocytes % (auto) 2.2 %; Lymphocytes # (auto) 0.74 K/uL (1.2-3.4); Lymphocytes % (auto) 2.2 %; Monocytes # (auto) 0.04 K/uL (0.11-0.59); Monocytes % (auto) 0.1 %; Neutrophils # (auto) 32.06 K/uL (1.4-6.5); Neutrophils % (auto) 95.3 %; Platelet Estimate Decreased (Normal); Toxic Granulation 2+
[2019-09-26 08:42] LABS: Albumin Level 1.1 gm/dl (3.4-5.0); BUN Creatinine Ratio 17.9 (10-20); Bilirubin,Total 1.7 mg/dl (0.2-1); Calcium 8.7 mg/dl (8.5-10.1); Creatinine Clr Calc Pharmacy 11.6 ml/min; Est GFR (African American) 9.7; Est GFR (Non-African American) 8.4; Total Protein 5.6 gm/dl (6.4-8.2)
[2019-09-26] MEDS ORDERED: CONSULT PHARMACY SCH (09:00)
--- NOTE | 2019-09-26 09:18 | Ultrasound Report ---
US renal/blad retro comp HISTORY: 29 years-old Female acute renal failure acute renal failure COMPARISON: Acute abdominal series radiographs 09/25/2019 TECHNIQUE: Multiple real-time sonographic images of the kidneys and urinary bladder were obtained ass essing grayscale appearance and color flow FINDINGS: Right kidney measures 12.0 x 4.1 x 7.3 cm and is unremarkable without renal calculi, hydronephrosis o r suspicious mass lesion. The left kidney measures 11.8 x 4.7 x 4.7 cm and is unremarkable without re nal calculi, hydronephrosis or suspicious mass lesion. Urinary bladder is unremarkable. Bilateral ure teral jets are documented. Increased echogenicity of the liver incidentally noted suggestive of hepat ic steatosis. Study is mildly limited secondary to patient inability to breath-hold. IMPRESSION: 1. Unremarkable sonographic appearance of the kidneys and urinary bladder. 2. Suggested hepatic steatosis. The above report was generated using voice recognition software. It may contain grammatical, syntax o r spelling errors. Electronically signed by: Yoshi Rawls M.D. 09/26/2019 9:17 AM
[2019-09-26 09:24] LABS: Potassium 2.9 mmol/L (3.5-5.1)
[2019-09-26] MEDS: PIPERACILLIN/TAZOBACTAM 3.375 GM in DEXTROSE 5% 100 ML IV SCH ×2 (09:34→21:12)
--- NOTE | 2019-09-26 10:12 | CT Scan Report ---
CT chest wo con CT DOSE: 206.24 mGy.cm HISTORY: Right-sided chest pain. pneumonia, r/o abscess TECHNIQUE: Multiaxial CT images of the chest were performed without contrast. A dose lowering techni que was utilized adhering to the principles of ALARA. COMPARISON: Chest 09/25/2019. FINDINGS: There is dense consolidation involving the majority of the right upper lobe with smaller ar eas of consolidation involving the right middle lobe and superior segment of the right lower lobe. Th ere are associated air bronchograms. Therefore, findings favor a pneumonia. The central airways are p atent. No pneumothorax. Mild respiratory motion artifact. The left lung is essentially clear. No susp icious lytic or blastic osseous lesions. Small right pleural effusion. No abscess identified on this noncontrast study. Hepatic steatosis. The liver appears enlarged but is only partially visualized. Th e spleen is normal in size. The visualized adrenal glands are unremarkable. The heart is normal in si ze. Normal esophagus. The thoracic aorta is normal in course and caliber. A single mildly enlarged up per right paratracheal lymph node best seen on image 34. This measures 13 x 10 mm. Additional mediast inal lymph nodes are subcentimeter in short axis diameter. IMPRESSION: 1. Dense consolidation within the right lung primarily involving the right upper lobe with associated air bronchograms. Therefore, this favors a pneumonia. Follow-up recommended to ensure complete resol ution. 2. Small right pleural effusion. 3. No abscess identified. 4. A single mildly enlarged upper right paratracheal lymph node which may be reactive. This bears paul angel on future examinations. 5. Hepatomegaly demonstrating fatty change. Electronically signed by: Dong Silveira M.D. 09/26/2019 10:10 AM
[2019-09-26] MEDS: OXYCODONE HCL IR 5 MG TAB (IMMEDIATE RELEASE) PO PRN ×2 (10:33→22:41)
--- NOTE | 2019-09-26 10:39 | Infectious Disease Consult ---
Date of Consultation September 26, 2019 Assessment & Plan (1) Severe sepsis: 29-year-old female with history of alcohol abuse, recent seizure from withdrawal, now with extensive right-sided pneumonia with sepsis, with blood cultures growing gram-positive cocci in chains consistent with streptococcal species. For now, patient to be continued on Zosyn, have discontinued doxycycline. Length of IV antibiotics will be determined by culture results and clinical response. Will follow. (2) Pneumonia: (3) Gram-positive bacteremia: History of Present Illness Reason for Consultation: Sepsis, pneumonia, positive blood cultures Attending Physician: Ganga Rodriguez MD History of Present Illness 29-year-old female with history of alcohol abuse, tobacco abuse, recent seizure with fall attributed to alcohol withdrawal, presents to the emergency room with several days of progressively worsening right-sided abdominal pain, radiating into her chest, worse with deep breath, along with worsening shortness of breath. She was found to have extensive pneumonia, and now blood cultures were positive for gram-positive cocci in chains. Started empirically on doxycycline and Zosyn. Has had recent vomiting episodes and has been unable to keep down any food. Noted to have significant leukocytosis and thrombocytopenia. P reviously hospitalized in February for alcohol withdrawal, did not seek medical attention in August after seizure event. Allergies Allergy/AdvReac Type Severity Reaction Status Date / Time No Known Allergies Allergy Unverified 09/25/19 23:37 Home Medications Home Medications Medication Instructions Recorded Confirmed Type fluoxetine [Prozac] 60 mg PO DAILY 11/03/18 09/25/19 History aripiprazole [Abilify] 5 mg PO DAILY 09/25/19 09/25/19 History Patient History Medical History Alcohol withdrawal seizure Alcohol withdrawal seizure (Inactive) Alcoholism Depression Elevated LFTs Tobacco use Surgical History No pertinent past surgical history Family History Mother Diabetes Social History Preferred Language: Korean Communication Ability: Effective Visual Impairment: Partially Limited Receivable Executive Required: No Beliefs That Will Affect Care: None marital status: Single marital status details: Boyfriend Current Living Situation: Parent Current Living Situation Comment: father Feels Safe at Home: Yes Smoking Status: Current every day smoker Tobacco Type: cigarettes ; Cigarettes Per Day: 10 ; Second Hand Exposure: Yes ; Tobacco Cessation Education Requested by Patient: No Hx Alcohol Use: Yes Alcohol type: beer and hard liquor Alcohol Intake Frequency Comment: 6-7 daily Hx Substance Use: No Review of Systems Review of Systems: All systems reviewed & are unremarkable except as noted in HPI & below Results & Data Vital Signs (Past 12 Hours) Vital Signs Temp Pulse Pulse Resp BP BP BP 09/26/19 07:11 36.3 C L 63 16 117/73 09/26/19 07:00 36.3 C L 63 18 117/73 09/26/19 04:57 95 H 09/26/19 02:11 36.6 C 90 18 118/77 09/26/19 02:00 89 20 127/75 09/26/19 01:15 96 H 22 119/75 09/26/19 01:01 91 H 27 H 09/26/19 01:00 88 24 113/70 09/26/19 00:45 83 30 H 122/73 09/26/19 00:31 91 H 23 09/26/19 00:30 93 H 93 H 21 120/73 09/26/19 00:15 98 H 16 124/85 09/26/19 00:00 90 18 09/25/19 23:31 92 H 17 09/25/19 23:30 95 H 25 H 116/77 09/25/19 23:27 94 H 17 09/25/19 23:26 97 H 17 99/66 L Pulse Ox 09/26/19 07:11 98 09/26/19 07:00 98 09/26/19 04:57 09/26/19 02:11 91 09/26/19 02:00 94 09/26/19 01:15 97 09/26/19 01:01 90 09/26/19 01:00 88 L 09/26/19 00:45 91 09/26/19 00:31 90 09/26/19 00:30 93 09/26/19 00:15 09/26/19 00:00 93 09/25/19 23:31 91 09/25/19 23:30 92 09/25/19 23:27 90 09/25/19 23:26 Laboratory Results Short CBC 09/25/19 09/25/19 09/26/19 Range/Units 22:10 23:40 07:39 WBC Cancelled 29.32 H 33.65 H* Hgb Cancelled 12.2 10.8 L Hct Cancelled 32.8 L 29.9 L Plt Count Cancelled 53 L 57 L BMP 09/25/19 09/25/19 09/26/19 22:10 23:42 07:39 Sodium 119 L* 122 L 125 L Potassium 2.6 L 2.4 L* 2.9 L D Chloride 75 L 81 L 88 L Carbon Dioxide 24 24 22 BUN 123 H 117 H 112 H Creatinine 8.16 H* 7.51 H* D 6.28 H* D Glucose 78 73 73 Calcium 9.7 8.8 8.7 Cardiac Enzymes 09/25/19 Range/Units 23:42 Total Creatine Kinase 21 L (26-192) U/L Liver Function 09/25/19 09/26/19 Range/Units 22:10 07:39 Total Bilirubin 1.7 H 1.7 H (0.2-1) mg/dl Direct Bilirubin 1.0 H (0-0.2) mg/dl AST 42 H 32 (15-37) U/L ALT 15 12 (12-78) U/L Alkaline Phosphatase 213 H 176 H (45-117) U/L Albumin 1.5 L 1.1 L (3.4-5.0) gm/dl Urine 09/25/19 Range/Units 21:10 Urine Color Dark Yellow Urine Appearance Turbid A (Clear) Urine pH 5.0 (4.5-7.5) Ur Specific [place] 1.029 (1.000-1.030) Urine Protein Trace H (Negative) Urine Glucose (UA) Negative (Negative) Diagnostic Findings Microbiology 09/26/19 09:15 Sputum, Expectorated Gram Stain - Final 09/26/19 00:14 Blood Aerobic Blood Culture - Preliminary Gram positive cocci in chains 09/25/19 23:40 Blood Aerobic Blood Culture - Preliminary Gram positive cocci in chains 09/25/19 23:40 Blood Anaerobic Blood Culture - Preliminary Gram positive cocci in chains XR chest 2V PA/lateral CLINICAL HISTORY: Right-sided chest pain POSSIBLE PNEUMONIA COMPARISON STUDY: No previous studies for comparison. FINDINGS: There is extensive right upper lobe pulmonary consolidation with air bronchograms consistent with pneumonia. There is a suspected small right pleural effusion. The left lung is clear. The heart is normal in size.[ IMPRESSION: 1. Extensive right upper lobe pulmonary consolidation consistent with pneumonia. Please correlate with appropriate signs and symptoms. 2. Small right pleural effusion 3. Films subsequent to treatment are recommended in follow-up PG Care Time/CCT Total # of Minutes Spent Total Time Spent with Patient: Total time spent is greater than 50% in coordination of care (as documented) at patient's floor/unit and/or counseling patient: (1) Pneumonia Laterality: right Lung location: upper lobe of lung Pneumonia type: due to unspecified organism Qualified Code(s): J18.9 - Pneumonia, unspecified organism
[2019-09-26] MEDS: IPRATROPIUM BROMIDE NEB SOLN 0.02% 2.5 ML VIAL INH SCH ×3 (11:11→19:58)
[2019-09-26] MEDS: LEVALBUTEROL HCL 0.63 MG/3 ML NEB NEB SCH ×3 (11:11→19:58)
[2019-09-26] MEDS ORDERED: XOPENEX/ATROVENT 0.63mg/0.5MG NEB COMBO NEB SCH (13:00)
[2019-09-26 14:55] LABS: BUN Creatinine Ratio 20.2 (10-20); Creatinine Clr Calc Pharmacy 13.3 ml/min; Est GFR (African American) 11.4; Est GFR (Non-African American) 9.8
--- NOTE | 2019-09-26 15:05 | Nephrology Consultation ---
Date of Consultation September 26, 2019 Assessment & Plan (1) BENJAMIN (acute kidney injury): Patient with acute kidney injury due to ischemic ATN in setting of sepsis and NSAID use. Urinalysis showing granular casts. Ultrasound shows no hydronephrosis. Management of ATN is supportive. Patient is making urine. No indication for dialysis but cannot rule out dialysis need during this admission. I discussed the possibility of dialysis if renal function does not improve with the patient and the father -Monitor input output. -Monitor renal function with BMP 3 times daily. I am repeating a BMP at 6 PM today. -I emphasized the need to avoid NSAIDs completely even after discharge -Postvoid bladder scan to ensure no urinary retention. (2) Gram-positive bacteremia: Patient with gram-positive bacteremia. She is getting Zosyn and doxycycline per primary team. Renally dose antibiotics for GFR less than 15 mL/min (3) Acute hyponatremia: Patient with acute hyponatremia likely due to hypovolemic hyponatremia. Sodium is improving to 126 this morning. Patient is at target for today. Recommend stopping all fluids. We will repeat a BMP at 6 PM. If sodium has not overcorrected, will resume IV fluids with Ringer's lactate (4) Pneumonia: Patient with pneumonia suspected to be due to aspiration. She is receiving antibiotics per primary team. (5) Hypokalemia: Patient with hypokalemia due to vomiting. Monitor and replace as needed. We will hold off on additional potassium correction to avoid overcorrection of hyponatremia. History of Present Illness Requesting Physician: Ganga Rodriguez MD Attending Physician: Ganga Rodriguez MD History of Present Illness This is a 29-year-old female with history of anxiety, tobacco abuse and recent alcohol abuse who was admitted on 09/26/2019 with sepsis, acute renal failure and hyponatremia. Patient was recently hospitalized in February with alcohol withdrawal at the time her creatinine was 0.6. She signed out AGAINST MEDICAL ADVICE. 3 weeks ago she reportedly quit alcohol. She reports having a seizure while walking outside. She had severe bruising in the periorbital area bilaterally but never sought medical advice. Since having the seizure, she has been unwell with poor p.o. intake, vomiting and most recent cough with shortness of breath. She was taking 4 tablets of [employer] brand of Aleve daily for aches. She noted reduced urine output over the past 2 days. The urine is very dark. She is complaining of chest pain with deep inspiration. In the emergency room she was found to have hyponatremia with sodium of 119. Sodium was improved to 126 this morning. She also had a potassium of 2. She had leg cramps. She feels better now denying any leg cramps or shortness of breath. She has urinated 1 L since admission. Creatinine is downtrending to 6.28. She was seen with her father Cosmo at the bedside. Allergies Allergy/AdvReac Type Severity Reaction Status Date / Time No Known Allergies Allergy Unverified 09/25/19 23:37 Home Medications Home Medications Medication Instructions Recorded Confirmed Type fluoxetine [Prozac] 60 mg PO DAILY 11/03/18 09/25/19 History aripiprazole [Abilify] 5 mg PO DAILY 09/25/19 09/25/19 History Patient History Medical History Alcohol withdrawal seizure Alcohol withdrawal seizure (Inactive) Alcoholism Depression Elevated LFTs Tobacco use Surgical History No pertinent past surgical history Family History Mother Diabetes Social History Preferred Language: Citizen Of [place] Communication Ability: Effective Visual Impairment: Partially Limited Tail Board Man Required: No Beliefs That Will Affect Care: None marital status: Single marital status details: Boyfriend Current Living Situation: Parent Current Living Situation Comment: father Feels Safe at Home: Yes Smoking Status: Current every day smoker Tobacco Type: cigarettes ; Cigarettes Per Day: 10 ; Second Hand Exposure: Yes ; Tobacco Cessation Education Requested by Patient: No Hx Alcohol Use: Yes Alcohol type: beer and hard liquor Alcohol Intake Frequency Comment: 6-7 daily Hx Substance Use: No Review of Systems Review of Systems: All systems reviewed & are unremarkable except as noted in HPI & below Physical Exam Physical Exam: General exam: Appears comfortable, no acute distress HEENT: Bilateral periorbital hematoma, pupils are equal and reactive to light Neck: No JVD, neck is supple trachea is midline Respiratory system: Clear breath sounds bilaterally. Gastrointestinal: Abdomen is soft, non distended, non tender, bowel sounds are present CVS: Regular rate and rhythm. No murmurs, rubs or gallops Musculoskeletal: No joint or muscle tenderness Extremities: Non tender, no edema, peripheral pulses are present Neuro: Oriented, no tremors, no focal neurological deficits Skin: No rashes Results & Data Vital Signs (Past 12 Hours) Vital Signs Temp Pulse Pulse Resp BP Pulse Ox Pulse Ox 09/26/19 11:23 96 09/26/19 07:11 36.3 C L 63 16 117/73 98 09/26/19 07:00 36.3 C L 63 18 117/73 98 09/26/19 04:57 95 H Pulse Ox 09/26/19 11:23 94 09/26/19 07:11 09/26/19 07:00 09/26/19 04:57 Laboratory Results Laboratory Results - last 24 hr 09/25/19 09/25/19 09/25/19 21:10 21:10 21:10 WBC RBC Hgb Hct MCV MCH MCHC RDW Std Deviation RDW Coeff of Vinod Plt Count MPV Immature Gran % (Auto) Neut % (Auto) Lymph % (Auto) Dent % (Auto) Eos % (Auto) Baso % (Auto) Immature Gran # (Auto) Neut # (Auto) Lymph # (Auto) Dent # (Auto) Eos # (Auto) Baso # (Auto) Absolute Nucleated RBC Nucleated RBC % (auto) Neutrophils % (Manual) Band Neutrophils % Lymphocytes % (Manual) Prolymphocyte % Reactive Lymphs % (Man) Monocytes % (Manual) Eosinophils % (Manual) Basophils % (Manual) Metamyelocytes % (Man) Myelocytes % (Man) Promyelocytes % (Man) Blast Cells % (Manual) Plasma Cell % (Manual) Other Cells % Nucleated RBC % Neutrophils # (Manual) Band Neutrophils # Total Absolute Neuts Lymphocytes # (Manual) Prolymphocyte # Reactive Lymphs # Total Abs Lymphocytes Monocytes # (Manual) Eosinophils # (Manual) Basophils # (Manual) Metamyelocytes # (Man) Myelocytes # (Manual) Promyelocytes # (Man) Blast Cells # (Man) Plasma Cell # (Manual) Other Cells # Nucleated RBCs # (Man) Hypersegmented Neuts Hyposegmented Neuts Hypogranular Neuts Large Granular Lymphs # Lrg Granular Lymphs Hairy Cells Smudge Cells Toxic Granulation Toxic Vacuolation Dohle Bodies [place] Rods Platelet Estimate Hypogranular Platelets Clumped Platelets Giant Platelets Platelet Satelliting RBC Morphology Polychromasia Hypochromasia Poikilocytosis Basophilic Stippling Anisocytosis Microcytosis Macrocytosis Spherocytes Pappenheimer Bodies Sickle Cells Target Cells Tear Drop Cells Ovalocytes Stomatocytes [place] Bodies Echinocytes Acanthocytes (Spur) Rouleaux RBC Agglutinates Schistocytes RBC Morph Comment Sezary Cell APTT PTT Ratio Sodium Potassium Chloride Carbon Dioxide Anion Gap BUN Creatinine Est Cr Clr Drug Dosing Est GFR ( Amer) Est GFR (Non-Af Amer) BUN/Creatinine Ratio Glucose Osmolality Lactate Calcium Phosphorus Magnesium Total Bilirubin Direct Bilirubin AST ALT Alkaline Phosphatase Total Creatine Kinase Total Protein Albumin Globulin Albumin/Globulin Ratio Lipase TSH HCG, Qual Specimen Hemolysis Urine Color Dark Yellow Urine Appearance Turbid A Urine pH 5.0 Ur Specific Reva 1.029 Urine Protein Trace H Urine Glucose (UA) Negative Urine Ketones Negative Urine Blood Negative Urine Nitrite Negative Urine Bilirubin Negative Urine Urobilinogen Negative Ur Leukocyte Esterase Trace H Urine WBC (Auto) 10-30 H Urine RBC (Auto) 0-4 U Hyaline Cast (Auto) 1-5 U Epithel Cells (Auto) >30 H Urine Bacteria (Auto) 2+ H Granular Casts 5-10 H Urine Yeast Not Reportable POC Ur Test NEG Nasal Screen MRSA (PCR) Urine Opiates Screen Neg Ur Methadone, Qual Neg Urine Barbiturates Neg Ur Phencyclidine (PCP) Neg U Amphetamin/Meth Scrn Neg MDMA (Ecstasy) Screen Neg U Benzodiazepines Scrn Neg Ur Cocaine Metabolite Neg U Marijuana (THC) Screen Neg Ethyl Alcohol mg/dL Influenza Type A (PCR) Influenza Type B (PCR) 09/25/19 09/25/19 09/25/19 22:10 22:10 22:10 WBC Cancelled RBC Cancelled Hgb Cancelled Hct Cancelled MCV Cancelled MCH Cancelled MCHC Cancelled RDW Std Deviation Cancelled RDW Coeff of Vinod Cancelled Plt Count Cancelled MPV Cancelled Immature Gran % (Auto) Cancelled Neut % (Auto) Cancelled Lymph % (Auto) Cancelled Dent % (Auto) Cancelled Eos % (Auto) Cancelled Baso % (Auto) Cancelled Immature Gran # (Auto) Cancelled Neut # (Auto) Cancelled Lymph # (Auto) Cancelled Dent # (Auto) Cancelled Eos # (Auto) Cancelled Baso # (Auto) Cancelled Absolute Nucleated RBC Cancelled Nucleated RBC % (auto) Cancelled Neutrophils % (Manual) Cancelled Band Neutrophils % Cancelled Lymphocytes % (Manual) Cancelled Prolymphocyte % Cancelled Reactive Lymphs % (Man) Cancelled Monocytes % (Manual) Cancelled Eosinophils % (Manual) Cancelled Basophils % (Manual) Cancelled Metamyelocytes % (Man) Cancelled Myelocytes % (Man) Cancelled Promyelocytes % (Man) Cancelled Blast Cells % (Manual) Cancelled Plasma Cell % (Manual) Cancelled Other Cells % Cancelled Nucleated RBC % Cancelled Neutrophils # (Manual) Cancelled Band Neutrophils # Cancelled Total Absolute Neuts Cancelled Lymphocytes # (Manual) Cancelled Prolymphocyte # Cancelled Reactive Lymphs # Cancelled Total Abs Lymphocytes Cancelled Monocytes # (Manual) Cancelled Eosinophils # (Manual) Cancelled Basophils # (Manual) Cancelled Metamyelocytes # (Man) Cancelled Myelocytes # (Manual) Cancelled Promyelocytes # (Man) Cancelled Blast Cells # (Man) Cancelled Plasma Cell # (Manual) Cancelled Other Cells # Cancelled Nucleated RBCs # (Man) Cancelled Hypersegmented Neuts Cancelled Hyposegmented Neuts Cancelled Hypogranular Neuts Cancelled Large Granular Lymphs Cancelled # Lrg Granular Lymphs Cancelled Hairy Cells Cancelled Smudge Cells Cancelled Toxic Granulation Cancelled Toxic Vacuolation Cancelled Dohle Bodies Cancelled [place] Cancelled Platelet Estimate Cancelled Hypogranular Platelets Cancelled Clumped Platelets Cancelled Giant Platelets Cancelled Platelet Satelliting Cancelled RBC Morphology Cancelled Polychromasia Cancelled Hypochromasia Cancelled Poikilocytosis Cancelled Basophilic Stippling Cancelled Anisocytosis Cancelled Microcytosis Cancelled Macrocytosis Cancelled Spherocytes Cancelled Pappenheimer Bodies Cancelled Sickle Cells Cancelled Target Cells Cancelled Tear Drop Cells Cancelled Ovalocytes Cancelled Stomatocytes Cancelled [place] Bodies Cancelled Echinocytes Cancelled Acanthocytes (Spur) Cancelled Rouleaux Cancelled RBC Agglutinates Cancelled Schistocytes Cancelled RBC Morph Comment Cancelled Sezary Cell Cancelled APTT PTT Ratio Sodium 119 L* Potassium 2.6 L Chloride 75 L Carbon Dioxide 24 Anion Gap 20.0 H BUN 123 H Creatinine 8.16 H* Est Cr Clr Drug Dosing 8.9 Est GFR ( Amer) 7.1 Est GFR (Non-Af Amer) 6.1 BUN/Creatinine Ratio 15.0 Glucose 78 Osmolality Lactate Calcium 9.7 Phosphorus Magnesium Total Bilirubin 1.7 H Direct Bilirubin AST 42 H ALT 15 Alkaline Phosphatase 213 H Total Creatine Kinase Total Protein 7.0 Albumin 1.5 L Globulin 5.5 H Albumin/Globulin Ratio 0.3 L Lipase 26 L TSH HCG, Qual Negative Specimen Hemolysis Cancelled Urine Color Urine Appearance Urine pH Ur Specific Reva Urine Protein Urine Glucose (UA) Urine Ketones Urine Blood Urine Nitrite Urine Bilirubin Urine Urobilinogen Ur Leukocyte Esterase Urine WBC (Auto) Urine RBC (Auto) U Hyaline Cast (Auto) U Epithel Cells (Auto) Urine Bacteria (Auto) Granular Casts Urine Yeast POC Ur Test Nasal Screen MRSA (PCR) Urine Opiates Screen Ur Methadone, Qual Urine Barbiturates Ur Phencyclidine (PCP) U Amphetamin/Meth Scrn MDMA (Ecstasy) Screen U Benzodiazepines Scrn Ur Cocaine Metabolite U Marijuana (THC) Screen Ethyl Alcohol mg/dL Influenza Type A (PCR) Influenza Type B (PCR) 09/25/19 09/25/19 09/25/19 23:40 23:42 23:42 WBC 29.32 H RBC 3.00 L Hgb 12.2 Hct 32.8 L MCV 109.3 H MCH 40.7 H MCHC 37.2 H RDW Std Deviation 54.9 H RDW Coeff of Vinod 13.9 Plt Count 53 L MPV Immature Gran % (Auto) Neut % (Auto) Lymph % (Auto) Dent % (Auto) Eos % (Auto) Baso % (Auto) Immature Gran # (Auto) Neut # (Auto) Lymph # (Auto) Dent # (Auto) Eos # (Auto) Baso # (Auto) Absolute Nucleated RBC Nucleated RBC % (auto) Neutrophils % (Manual) 95.5 Band Neutrophils % Lymphocytes % (Manual) 0.9 Prolymphocyte % Reactive Lymphs % (Man) Monocytes % (Manual) 1.8 Eosinophils % (Manual) Basophils % (Manual) Metamyelocytes % (Man) 0.9 Myelocytes % (Man) 0.9 Promyelocytes % (Man) Blast Cells % (Manual) Plasma Cell % (Manual) Other Cells % Nucleated RBC % Neutrophils # (Manual) 28.00 H Band Neutrophils # Total Absolute Neuts 28.00 H Lymphocytes # (Manual) 0.26 L Prolymphocyte # Reactive Lymphs # Total Abs Lymphocytes 0.26 L Monocytes # (Manual) 0.53 Eosinophils # (Manual) Basophils # (Manual) Metamyelocytes # (Man) 0.26 H Myelocytes # (Manual) 0.26 H Promyelocytes # (Man) Blast Cells # (Man) Plasma Cell # (Manual) Other Cells # Nucleated RBCs # (Man) Hypersegmented Neuts Hyposegmented Neuts Hypogranular Neuts Large Granular Lymphs # Lrg Granular Lymphs Hairy Cells Smudge Cells Toxic Granulation 1+ Toxic Vacuolation 1+ Dohle Bodies 1+ [place] Rods Platelet Estimate Decreased L Hypogranular Platelets Clumped Platelets Giant Platelets 2+ Platelet Satelliting RBC Morphology Polychromasia Hypochromasia Poikilocytosis Basophilic Stippling Anisocytosis Microcytosis Macrocytosis Spherocytes Pappenheimer Bodies Sickle Cells Target Cells Tear Drop Cells Ovalocytes Stomatocytes [place] Bodies Echinocytes Acanthocytes (Spur) Rouleaux RBC Agglutinates Schistocytes RBC Morph Comment Sezary Cell APTT PTT Ratio Sodium 122 L Potassium 2.4 L* Chloride 81 L Carbon Dioxide 24 Anion Gap 18.0 H BUN 117 H Creatinine 7.51 H* D Est Cr Clr Drug Dosing 9.7 Est GFR ( Amer) 7.8 Est GFR (Non-Af Amer) 6.7 BUN/Creatinine Ratio 15.3 Glucose 73 Osmolality Lactate Calcium 8.8 Phosphorus Magnesium 2.2 Total Bilirubin Direct Bilirubin AST ALT Alkaline Phosphatase Total Creatine Kinase 21 L Total Protein Albumin Globulin Albumin/Globulin Ratio Lipase TSH 0.723 HCG, Qual Specimen Hemolysis Urine Color Urine Appearance Urine pH Ur Specific Reva Urine Protein Urine Glucose (UA) Urine Ketones Urine Blood Urine Nitrite Urine Bilirubin Urine Urobilinogen Ur Leukocyte Esterase Urine WBC (Auto) Urine RBC (Auto) U Hyaline Cast (Auto) U Epithel Cells (Auto) Urine Bacteria (Auto) Granular Casts Urine Yeast POC Ur Test Nasal Screen MRSA (PCR) Urine Opiates Screen Ur Methadone, Qual Urine Barbiturates Ur Phencyclidine (PCP) U Amphetamin/Meth Scrn MDMA (Ecstasy) Screen U Benzodiazepines Scrn Ur Cocaine Metabolite U Marijuana (THC) Screen Ethyl Alcohol mg/dL Influenza Type A (PCR) Influenza Type B (PCR) 09/26/19 09/26/19 09/26/19 00:46 00:46 00:46 WBC RBC Hgb Hct MCV MCH MCHC RDW Std Deviation RDW Coeff of Vinod Plt Count MPV Immature Gran % (Auto) Neut % (Auto) Lymph % (Auto) Dent % (Auto) Eos % (Auto) Baso % (Auto) Immature Gran # (Auto) Neut # (Auto) Lymph # (Auto) Dent # (Auto) Eos # (Auto) Baso # (Auto) Absolute Nucleated RBC Nucleated RBC % (auto) Neutrophils % (Manual) Band Neutrophils % Lymphocytes % (Manual) Prolymphocyte % Reactive Lymphs % (Man) Monocytes % (Manual) Eosinophils % (Manual) Basophils % (Manual) Metamyelocytes % (Man) Myelocytes % (Man) Promyelocytes % (Man) Blast Cells % (Manual) Plasma Cell % (Manual) Other Cells % Nucleated RBC % Neutrophils # (Manual) Band Neutrophils # Total Absolute Neuts Lymphocytes # (Manual) Prolymphocyte # Reactive Lymphs # Total Abs Lymphocytes Monocytes # (Manual) Eosinophils # (Manual) Basophils # (Manual) Metamyelocytes # (Man) Myelocytes # (Manual) Promyelocytes # (Man) Blast Cells # (Man) Plasma Cell # (Manual) Other Cells # Nucleated RBCs # (Man) Hypersegmented Neuts Hyposegmented Neuts Hypogranular Neuts Large Granular Lymphs # Lrg Granular Lymphs Hairy Cells Smudge Cells Toxic Granulation Toxic Vacuolation Dohle Bodies [place] Platelet Estimate Hypogranular Platelets Clumped Platelets Giant Platelets Platelet Satelliting RBC Morphology Polychromasia Hypochromasia Poikilocytosis Basophilic Stippling Anisocytosis Microcytosis Macrocytosis Spherocytes Pappenheimer Bodies Sickle Cells Target Cells Tear Drop Cells Ovalocytes Stomatocytes [place] Bodies Echinocytes Acanthocytes (Spur) Rouleaux RBC Agglutinates Schistocytes RBC Morph Comment Sezary Cell APTT 28.3 PTT Ratio 1.0 Sodium Potassium Chloride Carbon Dioxide Anion Gap BUN Creatinine Est Cr Clr Drug Dosing Est GFR ( Amer) Est GFR (Non-Af Amer) BUN/Creatinine Ratio Glucose Osmolality 300 Lactate 0.9 Calcium Phosphorus Magnesium Total Bilirubin Direct Bilirubin AST ALT Alkaline Phosphatase Total Creatine Kinase Total Protein Albumin Globulin Albumin/Globulin Ratio Lipase TSH HCG, Qual Specimen Hemolysis Urine Color Urine Appearance Urine pH Ur Specific Reva Urine Protein Urine Glucose (UA) Urine Ketones Urine Blood Urine Nitrite Urine Bilirubin Urine Urobilinogen Ur Leukocyte Esterase Urine WBC (Auto) Urine RBC (Auto) U Hyaline Cast (Auto) U Epithel Cells (Auto) Urine Bacteria (Auto) Granular Casts Urine Yeast POC Ur Test Nasal Screen MRSA (PCR) Urine Opiates Screen Ur Methadone, Qual Urine Barbiturates Ur Phencyclidine (PCP) U Amphetamin/Meth Scrn MDMA (Ecstasy) Screen U Benzodiazepines Scrn Ur Cocaine Metabolite U Marijuana (THC) Screen Ethyl Alcohol mg/dL Influenza Type A (PCR) Influenza Type B (PCR) 09/26/19 09/26/19 09/26/19 00:46 01:25 07:39 WBC 33.65 H* RBC 2.74 L Hgb 10.8 L Hct 29.9 L MCV 109.1 H MCH 39.4 H MCHC 36.1 H RDW Std Deviation 55.1 H RDW Coeff of Vinod 13.9 Plt Count 57 L MPV Immature Gran % (Auto) 2.2 Neut % (Auto) 95.3 Lymph % (Auto) 2.2 Dent % (Auto) 0.1 Eos % (Auto) 0.1 Baso % (Auto) 0.1 Immature Gran # (Auto) 0.75 H Neut # (Auto) 32.06 H Lymph # (Auto) 0.74 L Dent # (Auto) 0.04 L Eos # (Auto) 0.03 Baso # (Auto) 0.03 Absolute Nucleated RBC Nucleated RBC % (auto) Neutrophils % (Manual) Band Neutrophils % Lymphocytes % (Manual) Prolymphocyte % Reactive Lymphs % (Man) Monocytes % (Manual) Eosinophils % (Manual) Basophils % (Manual) Metamyelocytes % (Man) Myelocytes % (Man) Promyelocytes % (Man) Blast Cells % (Manual) Plasma Cell % (Manual) Other Cells % Nucleated RBC % Neutrophils # (Manual) Band Neutrophils # Total Absolute Neuts Lymphocytes # (Manual) Prolymphocyte # Reactive Lymphs # Total Abs Lymphocytes Monocytes # (Manual) Eosinophils # (Manual) Basophils # (Manual) Metamyelocytes # (Man) Myelocytes # (Manual) Promyelocytes # (Man) Blast Cells # (Man) Plasma Cell # (Manual) Other Cells # Nucleated RBCs # (Man) Hypersegmented Neuts Hyposegmented Neuts Hypogranular Neuts Large Granular Lymphs # Lrg Granular Lymphs Hairy Cells Smudge Cells Toxic Granulation 2+ Toxic Vacuolation Dohle Bodies 1+ [place] Rods Platelet Estimate Decreased L Hypogranular Platelets Clumped Platelets Giant Platelets Platelet Satelliting RBC Morphology Polychromasia Hypochromasia Poikilocytosis Basophilic Stippling Anisocytosis Microcytosis Macrocytosis Spherocytes Pappenheimer Bodies Sickle Cells Target Cells Tear Drop Cells Ovalocytes Stomatocytes [place] Bodies Echinocytes Acanthocytes (Spur) Rouleaux RBC Agglutinates Schistocytes RBC Morph Comment Sezary Cell APTT PTT Ratio Sodium Potassium Chloride Carbon Dioxide Anion Gap BUN Creatinine Est Cr Clr Drug Dosing Est GFR ( Amer) Est GFR (Non-Af Amer) BUN/Creatinine Ratio Glucose Osmolality Lactate Calcium Phosphorus Magnesium Total Bilirubin Direct Bilirubin AST ALT Alkaline Phosphatase Total Creatine Kinase Total Protein Albumin Globulin Albumin/Globulin Ratio Lipase TSH HCG, Qual Specimen Hemolysis Urine Color Urine Appearance Urine pH Ur Specific Reva Urine Protein Urine Glucose (UA) Urine Ketones Urine Blood Urine Nitrite Urine Bilirubin Urine Urobilinogen Ur Leukocyte Esterase Urine WBC (Auto) Urine RBC (Auto) U Hyaline Cast (Auto) U Epithel Cells (Auto) Urine Bacteria (Auto) Granular Casts Urine Yeast POC Ur Test Nasal Screen MRSA (PCR) Urine Opiates Screen Ur Methadone, Qual Urine Barbiturates Ur Phencyclidine (PCP) U Amphetamin/Meth Scrn MDMA (Ecstasy) Screen U Benzodiazepines Scrn Ur Cocaine Metabolite U Marijuana (THC) Screen Ethyl Alcohol mg/dL < 3.0 Influenza Type A (PCR) Neg for Influ A Influenza Type B (PCR) Neg for Influ B 09/26/19 09/26/19 09/26/19 07:39 07:39 12:03 WBC RBC Hgb Hct MCV MCH MCHC RDW Std Deviation RDW Coeff of Vinod Plt Count MPV Immature Gran % (Auto) Neut % (Auto) Lymph % (Auto) Dent % (Auto) Eos % (Auto) Baso % (Auto) Immature Gran # (Auto) Neut # (Auto) Lymph # (Auto) Dent # (Auto) Eos # (Auto) Baso # (Auto) Absolute Nucleated RBC Nucleated RBC % (auto) Neutrophils % (Manual) Band Neutrophils % Lymphocytes % (Manual) Prolymphocyte % Reactive Lymphs % (Man) Monocytes % (Manual) Eosinophils % (Manual) Basophils % (Manual) Metamyelocytes % (Man) Myelocytes % (Man) Promyelocytes % (Man) Blast Cells % (Manual) Plasma Cell % (Manual) Other Cells % Nucleated RBC % Neutrophils # (Manual) Band Neutrophils # Total Absolute Neuts Lymphocytes # (Manual) Prolymphocyte # Reactive Lymphs # Total Abs Lymphocytes Monocytes # (Manual) Eosinophils # (Manual) Basophils # (Manual) Metamyelocytes # (Man) Myelocytes # (Manual) Promyelocytes # (Man) Blast Cells # (Man) Plasma Cell # (Manual) Other Cells # Nucleated RBCs # (Man) Hypersegmented Neuts Hyposegmented Neuts Hypogranular Neuts Large Granular Lymphs # Lrg Granular Lymphs Hairy Cells Smudge Cells Toxic Granulation Toxic Vacuolation Dohle Bodies [place]s Platelet Estimate Hypogranular Platelets Clumped Platelets Giant Platelets Platelet Satelliting RBC Morphology Polychromasia Hypochromasia Poikilocytosis Basophilic Stippling Anisocytosis Microcytosis Macrocytosis Spherocytes Pappenheimer Bodies Sickle Cells Target Cells Tear Drop Cells Ovalocytes Stomatocytes [place] Bodies Echinocytes Acanthocytes (Spur) Rouleaux RBC Agglutinates Schistocytes RBC Morph Comment Sezary Cell APTT PTT Ratio Sodium 125 L 126 L Potassium 2.9 L D Chloride 88 L Carbon Dioxide 22 Anion Gap 15.0 H BUN 112 H Creatinine 6.28 H* D Est Cr Clr Drug Dosing 11.6 Est GFR ( Amer) 9.7 Est GFR (Non-Af Amer) 8.4 BUN/Creatinine Ratio 17.9 Glucose 73 Osmolality Lactate Calcium 8.7 Phosphorus 7.3 H Magnesium 2.3 Total Bilirubin 1.7 H Direct Bilirubin 1.0 H AST 32 ALT 12 Alkaline Phosphatase 176 H Total Creatine Kinase Total Protein 5.6 L Albumin 1.1 L Globulin Albumin/Globulin Ratio Lipase TSH HCG, Qual Specimen Hemolysis Urine Color Urine Appearance Urine pH Ur Specific Reva Urine Protein Urine Glucose (UA) Urine Ketones Urine Blood Urine Nitrite Urine Bilirubin Urine Urobilinogen Ur Leukocyte Esterase Urine WBC (Auto) Urine RBC (Auto) U Hyaline Cast (Auto) U Epithel Cells (Auto) Urine Bacteria (Auto) Granular Casts Urine Yeast POC Ur Test Nasal Screen MRSA (PCR) Urine Opiates Screen Ur Methadone, Qual Urine Barbiturates Ur Phencyclidine (PCP) U Amphetamin/Meth Scrn MDMA (Ecstasy) Screen U Benzodiazepines Scrn Ur Cocaine Metabolite U Marijuana (THC) Screen Ethyl Alcohol mg/dL Influenza Type A (PCR) Influenza Type B (PCR) 09/26/19 09/26/19 14:03 Unknown WBC RBC Hgb Hct MCV MCH MCHC RDW Std Deviation RDW Coeff of Vinod Plt Count MPV Immature Gran % (Auto) Neut % (Auto) Lymph % (Auto) Dent % (Auto) Eos % (Auto) Baso % (Auto) Immature Gran # (Auto) Neut # (Auto) Lymph # (Auto) Dent # (Auto) Eos # (Auto) Baso # (Auto) Absolute Nucleated RBC Nucleated RBC % (auto) Neutrophils % (Manual) Band Neutrophils % Lymphocytes % (Manual) Prolymphocyte % Reactive Lymphs % (Man) Monocytes % (Manual) Eosinophils % (Manual) Basophils % (Manual) Metamyelocytes % (Man) Myelocytes % (Man) Promyelocytes % (Man) Blast Cells % (Manual) Plasma Cell % (Manual) Other Cells % Nucleated RBC % Neutrophils # (Manual) Band Neutrophils # Total Absolute Neuts Lymphocytes # (Manual) Prolymphocyte # Reactive Lymphs # Total Abs Lymphocytes Monocytes # (Manual) Eosinophils # (Manual) Basophils # (Manual) Metamyelocytes # (Man) Myelocytes # (Manual) Promyelocytes # (Man) Blast Cells # (Man) Plasma Cell # (Manual) Other Cells # Nucleated RBCs # (Man) Hypersegmented Neuts Hyposegmented Neuts Hypogranular Neuts Large Granular Lymphs # Lrg Granular Lymphs Hairy Cells Smudge Cells Toxic Granulation Toxic Vacuolation Dohle Bodies [place] Rods Platelet Estimate Hypogranular Platelets Clumped Platelets Giant Platelets Platelet Satelliting RBC Morphology Polychromasia Hypochromasia Poikilocytosis Basophilic Stippling Anisocytosis Microcytosis Macrocytosis Spherocytes Pappenheimer Bodies Sickle Cells Target Cells Tear Drop Cells Ovalocytes Stomatocytes [place] Bodies Echinocytes Acanthocytes (Spur) Rouleaux RBC Agglutinates Schistocytes RBC Morph Comment Sezary Cell APTT PTT Ratio Sodium 125 L Potassium Pending Chloride 91 L Carbon Dioxide 21 Anion Gap 13.0 H BUN 111 H Creatinine 5.50 H* D Est Cr Clr Drug Dosing 13.3 Est GFR ( Amer) 11.4 Est GFR (Non-Af Amer) 9.8 BUN/Creatinine Ratio 20.2 H Glucose 85 Osmolality Lactate Calcium 9.0 Phosphorus Magnesium Total Bilirubin Direct Bilirubin AST ALT Alkaline Phosphatase Total Creatine Kinase Total Protein Albumin Globulin Albumin/Globulin Ratio Lipase TSH HCG, Qual Specimen Hemolysis Urine Color Urine Appearance Urine pH Ur Specific Reva Urine Protein Urine Glucose (UA) Urine Ketones Urine Blood Urine Nitrite Urine Bilirubin Urine Urobilinogen Ur Leukocyte Esterase Urine WBC (Auto) Urine RBC (Auto) U Hyaline Cast (Auto) U Epithel Cells (Auto) Urine Bacteria (Auto) Granular Casts Urine Yeast POC Ur Test Nasal Screen MRSA (PCR) Negative Urine Opiates Screen Ur Methadone, Qual Urine Barbiturates Ur Phencyclidine (PCP) U Amphetamin/Meth Scrn MDMA (Ecstasy) Screen U Benzodiazepines Scrn Ur Cocaine Metabolite U Marijuana (THC) Screen Ethyl Alcohol mg/dL Influenza Type A (PCR) Influenza Type B (PCR) (1) Pneumonia Laterality: right Lung location: upper lobe of lung Pneumonia type: due to unspecified organism Qualified Code(s): J18.9 - Pneumonia, unspecified organism
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
--- NOTE | 2019-09-26 16:47 | Hospitalist Progress Note ---
Date of Service September 26, 2019 Assessment & Plan (1) Severe sepsis: SEVERE SEPSIS SECONDARY TO PNEUMONIA- POSSIBLE COMMUNITY ACQUIRED, ASPIRATION FROM EMESIS GRAM POSITIVE BACTEREMIA Blood cultures: 1 bottle (+) for gram positive bacteremia in chains Urine culture: pending Sputum culture: pending CT chest: RUL pneumonia, no abscess ID consulted, continue Zosyn, d/c Doxycycline scheduled nebs, Incentive spirometry repeat CXR in 3 days ACUTE RENAL FAILURE likely Prerenal, ATN from Sepsis Nephro consulted Renal US: no obstruction Crea improving Labs at 6pm ordered, will wait before starting LR HYPONATREMIA appropriately being corrected repeat Labs at 6 pm HYPOKALEMIA likely from emesis, poor intake caution with replacement in light of renal failure SEIZURE EPISODES happened mid-August after patient abstained from alcohol will consult Neurology HISTORY OF ALCOHOLISM last drink was in mid, alcohol level normal no overt signs of withdrawal monitor closely ABNORMAL LIVER ULTRASOUND 1. Mild gallbladder distention is noted along with mild degree of layering sludge. No cholelithiasis or sonographic evidence of acute cholecystitis. 2. No biliary ductal dilation. 3. Increased echogenicity of the liver suggests hepatic steatosis. -- LFTs ok monitor as outpatient THROMBOCYTOPENIA likely from Sepsis, Alcoholism no signs of bleeding monitor RIGHT SUBCONJUNCTIVAL HEMORRHAGE sustained after falling, during apparent seizure episode last month no vision problems, hemorrhage improving as per patient monitor DVT prophylaxis SCDs, early ambulation for now given thrombocytopenia Disposition patient declining Alcohol rehab discussed with patient in detail and at length all questions answered she is understanding, agreeable, and comfortable with plan of care offered to update her father, patient states she will update him Subjective ff up for sepsis secondary to pneumonia, acute renal failure, etc. seen with KARO Sal at the bedside throughout whole encounter sitting up in bed, on 2 L NC, not in distress states she feels about the same, breathing about the same, has productive cough- white sputum, has upper chest pain with movement- right sided denies abdominal pain, has tea colored urine, voiding with no problems, urine output improving as per patient no other symptoms Review of Systems Review of Systems: All systems reviewed & are unremarkable except as noted in HPI & below Physical Exam Physical Exam: General- oriented x 3, not in distress, speaks in sentences with no effort or accessory muscle use Head- atraumatic Eyes- right: (+) subconjunctival hemorrhage left: inferior aspect, small periorbital ecchymoses PERRL, EOMI, anicteric ENT- oropharynx clear Neck- supple, no JVD, no adenopathy, no thyromegaly; carotids +2/2, no bruits appreciated Lungs- right(+) rhonchi left clear Heart- normal rate, regular rhythm; no murmur, no gallop, no rub appreciated Abdomen- normal bowel sounds, nondistended, soft, nontender, no masses or hepatosplenomegaly Extremities- no pretibial edema, no calf tenderness; peripheral pulses intact Neuro- alert, oriented x 3; CN 2-12 grossly intact; motor 5/5 bilaterally;sensation 100% on all extremities; no other gross focal neurologic deficits Skin- warm & dry Results & Data Vital Signs (Past 12 Hours) Vital Signs Temp Pulse Pulse Resp BP Pulse Ox Pulse Ox 09/26/19 16:22 111 H 09/26/19 15:30 36.6 C 98 H 19 116/73 91 09/26/19 11:23 96 09/26/19 07:11 36.3 C L 63 16 117/73 98 09/26/19 07:00 36.3 C L 63 18 117/73 98 09/26/19 04:57 95 H Pulse Ox 09/26/19 16:22 09/26/19 15:30 09/26/19 11:23 94 09/26/19 07:11 09/26/19 07:00 09/26/19 04:57 Laboratory Results Laboratory Results - last 24 hr 09/25/19 09/25/19 09/25/19 21:10 21:10 21:10 WBC RBC Hgb Hct MCV MCH MCHC RDW Std Deviation RDW Coeff of Vinod Plt Count MPV Immature Gran % (Auto) Neut % (Auto) Lymph % (Auto) [place] % (Auto) Eos % (Auto) Baso % (Auto) Immature Gran # (Auto) Neut # (Auto) Lymph # (Auto) [place] # (Auto) Eos # (Auto) Baso # (Auto) Absolute Nucleated RBC Nucleated RBC % (auto) Neutrophils % (Manual) Band Neutrophils % Lymphocytes % (Manual) Prolymphocyte % Reactive Lymphs % (Man) Monocytes % (Manual) Eosinophils % (Manual) Basophils % (Manual) Metamyelocytes % (Man) Myelocytes % (Man) Promyelocytes % (Man) Blast Cells % (Manual) Plasma Cell % (Manual) Other Cells % Nucleated RBC % Neutrophils # (Manual) Band Neutrophils # Total Absolute Neuts Lymphocytes # (Manual) Prolymphocyte # Reactive Lymphs # Total Abs Lymphocytes Monocytes # (Manual) Eosinophils # (Manual) Basophils # (Manual) Metamyelocytes # (Man) Myelocytes # (Manual) Promyelocytes # (Man) Blast Cells # (Man) Plasma Cell # (Manual) Other Cells # Nucleated RBCs # (Man) Hypersegmented Neuts Hyposegmented Neuts Hypogranular Neuts Large Granular Lymphs # Lrg Granular Lymphs Hairy Cells Smudge Cells Toxic Granulation Toxic Vacuolation Dohle Bodies [place] Rods Platelet Estimate Hypogranular Platelets Clumped Platelets Giant Platelets Platelet Satelliting RBC Morphology Polychromasia Hypochromasia Poikilocytosis Basophilic Stippling Anisocytosis Microcytosis Macrocytosis Spherocytes Pappenheimer Bodies Sickle Cells Target Cells Tear Drop Cells Ovalocytes Stomatocytes [place] Bodies Echinocytes Acanthocytes (Spur) Rouleaux RBC Agglutinates Schistocytes RBC Morph Comment Sezary Cell APTT PTT Ratio Sodium Potassium Chloride Carbon Dioxide Anion Gap BUN Creatinine Est Cr Clr Drug Dosing Est GFR ( Amer) Est GFR (Non-Af Amer) BUN/Creatinine Ratio Glucose Osmolality Lactate Calcium Phosphorus Magnesium Total Bilirubin Direct Bilirubin AST ALT Alkaline Phosphatase Total Creatine Kinase Total Protein Albumin Globulin Albumin/Globulin Ratio Lipase TSH HCG, Qual Specimen Hemolysis Urine Color Dark Yellow Urine Appearance Turbid A Urine pH 5.0 Ur Specific [place] 1.029 Urine Protein Trace H Urine Glucose (UA) Negative Urine Ketones Negative Urine Blood Negative Urine Nitrite Negative Urine Bilirubin Negative Urine Urobilinogen Negative Ur Leukocyte Esterase Trace H Urine WBC (Auto) 10-30 H Urine RBC (Auto) 0-4 U Hyaline Cast (Auto) 1-5 U Epithel Cells (Auto) >30 H Urine Bacteria (Auto) 2+ H Granular Casts 5-10 H Urine Yeast Not Reportable POC Ur Test NEG Nasal Screen MRSA (PCR) Urine Opiates Screen Neg Ur Methadone, Qual Neg Urine Barbiturates Neg Ur Phencyclidine (PCP) Neg U Amphetamin/Meth Scrn Neg MDMA (Ecstasy) Screen Neg U Benzodiazepines Scrn Neg Ur Cocaine Metabolite Neg U Marijuana (THC) Screen Neg Ethyl Alcohol mg/dL Influenza Type A (PCR) Influenza Type B (PCR) 09/25/19 09/25/19 09/25/19 22:10 22:10 22:10 WBC Cancelled RBC Cancelled Hgb Cancelled Hct Cancelled MCV Cancelled MCH Cancelled MCHC Cancelled RDW Std Deviation Cancelled RDW Coeff of Vinod Cancelled Plt Count Cancelled MPV Cancelled Immature Gran % (Auto) Cancelled Neut % (Auto) Cancelled Lymph % (Auto) Cancelled [place] % (Auto) Cancelled Eos % (Auto) Cancelled Baso % (Auto) Cancelled Immature Gran # (Auto) Cancelled Neut # (Auto) Cancelled Lymph # (Auto) Cancelled [place] # (Auto) Cancelled Eos # (Auto) Cancelled Baso # (Auto) Cancelled Absolute Nucleated RBC Cancelled Nucleated RBC % (auto) Cancelled Neutrophils % (Manual) Cancelled Band Neutrophils % Cancelled Lymphocytes % (Manual) Cancelled Prolymphocyte % Cancelled Reactive Lymphs % (Man) Cancelled Monocytes % (Manual) Cancelled Eosinophils % (Manual) Cancelled Basophils % (Manual) Cancelled Metamyelocytes % (Man) Cancelled Myelocytes % (Man) Cancelled Promyelocytes % (Man) Cancelled Blast Cells % (Manual) Cancelled Plasma Cell % (Manual) Cancelled Other Cells % Cancelled Nucleated RBC % Cancelled Neutrophils # (Manual) Cancelled Band Neutrophils # Cancelled Total Absolute Neuts Cancelled Lymphocytes # (Manual) Cancelled Prolymphocyte # Cancelled Reactive Lymphs # Cancelled Total Abs Lymphocytes Cancelled Monocytes # (Manual) Cancelled Eosinophils # (Manual) Cancelled Basophils # (Manual) Cancelled Metamyelocytes # (Man) Cancelled Myelocytes # (Manual) Cancelled Promyelocytes # (Man) Cancelled Blast Cells # (Man) Cancelled Plasma Cell # (Manual) Cancelled Other Cells # Cancelled Nucleated RBCs # (Man) Cancelled Hypersegmented Neuts Cancelled Hyposegmented Neuts Cancelled Hypogranular Neuts Cancelled Large Granular Lymphs Cancelled # Lrg Granular Lymphs Cancelled Hairy Cells Cancelled Smudge Cells Cancelled Toxic Granulation Cancelled Toxic Vacuolation Cancelled Dohle Bodies Cancelled [place] Cancelled Platelet Estimate Cancelled Hypogranular Platelets Cancelled Clumped Platelets Cancelled Giant Platelets Cancelled Platelet Satelliting Cancelled RBC Morphology Cancelled Polychromasia Cancelled Hypochromasia Cancelled Poikilocytosis Cancelled Basophilic Stippling Cancelled Anisocytosis Cancelled Microcytosis Cancelled Macrocytosis Cancelled Spherocytes Cancelled Pappenheimer Bodies Cancelled Sickle Cells Cancelled Target Cells Cancelled Tear Drop Cells Cancelled Ovalocytes Cancelled Stomatocytes Cancelled [place] Bodies Cancelled Echinocytes Cancelled Acanthocytes (Spur) Cancelled Rouleaux Cancelled RBC Agglutinates Cancelled Schistocytes Cancelled RBC Morph Comment Cancelled Sezary Cell Cancelled APTT PTT Ratio Sodium 119 L* Potassium 2.6 L Chloride 75 L Carbon Dioxide 24 Anion Gap 20.0 H BUN 123 H Creatinine 8.16 H* Est Cr Clr Drug Dosing 8.9 Est GFR ( Amer) 7.1 Est GFR (Non-Af Amer) 6.1 BUN/Creatinine Ratio 15.0 Glucose 78 Osmolality Lactate Calcium 9.7 Phosphorus Magnesium Total Bilirubin 1.7 H Direct Bilirubin AST 42 H ALT 15 Alkaline Phosphatase 213 H Total Creatine Kinase Total Protein 7.0 Albumin 1.5 L Globulin 5.5 H Albumin/Globulin Ratio 0.3 L Lipase 26 L TSH HCG, Qual Negative Specimen Hemolysis Cancelled Urine Color Urine Appearance Urine pH Ur Specific [place] Urine Protein Urine Glucose (UA) Urine Ketones Urine Blood Urine Nitrite Urine Bilirubin Urine Urobilinogen Ur Leukocyte Esterase Urine WBC (Auto) Urine RBC (Auto) U Hyaline Cast (Auto) U Epithel Cells (Auto) Urine Bacteria (Auto) Granular Casts Urine Yeast POC Ur Test Nasal Screen MRSA (PCR) Urine Opiates Screen Ur Methadone, Qual Urine Barbiturates Ur Phencyclidine (PCP) U Amphetamin/Meth Scrn MDMA (Ecstasy) Screen U Benzodiazepines Scrn Ur Cocaine Metabolite U Marijuana (THC) Screen Ethyl Alcohol mg/dL Influenza Type A (PCR) Influenza Type B (PCR) 09/25/19 09/25/19 09/25/19 23:40 23:42 23:42 WBC 29.32 H RBC 3.00 L Hgb 12.2 Hct 32.8 L MCV 109.3 H MCH 40.7 H MCHC 37.2 H RDW Std Deviation 54.9 H RDW Coeff of Vinod 13.9 Plt Count 53 L MPV Immature Gran % (Auto) Neut % (Auto) Lymph % (Auto) [place] % (Auto) Eos % (Auto) Baso % (Auto) Immature Gran # (Auto) Neut # (Auto) Lymph # (Auto) [place] # (Auto) Eos # (Auto) Baso # (Auto) Absolute Nucleated RBC Nucleated RBC % (auto) Neutrophils % (Manual) 95.5 Band Neutrophils % Lymphocytes % (Manual) 0.9 Prolymphocyte % Reactive Lymphs % (Man) Monocytes % (Manual) 1.8 Eosinophils % (Manual) Basophils % (Manual) Metamyelocytes % (Man) 0.9 Myelocytes % (Man) 0.9 Promyelocytes % (Man) Blast Cells % (Manual) Plasma Cell % (Manual) Other Cells % Nucleated RBC % Neutrophils # (Manual) 28.00 H Band Neutrophils # Total Absolute Neuts 28.00 H Lymphocytes # (Manual) 0.26 L Prolymphocyte # Reactive Lymphs # Total Abs Lymphocytes 0.26 L Monocytes # (Manual) 0.53 Eosinophils # (Manual) Basophils # (Manual) Metamyelocytes # (Man) 0.26 H Myelocytes # (Manual) 0.26 H Promyelocytes # (Man) Blast Cells # (Man) Plasma Cell # (Manual) Other Cells # Nucleated RBCs # (Man) Hypersegmented Neuts Hyposegmented Neuts Hypogranular Neuts Large Granular Lymphs # Lrg Granular Lymphs Hairy Cells Smudge Cells Toxic Granulation 1+ Toxic Vacuolation 1+ Dohle Bodies 1+ [place] Rods Platelet Estimate Decreased L Hypogranular Platelets Clumped Platelets Giant Platelets 2+ Platelet Satelliting RBC Morphology Polychromasia Hypochromasia Poikilocytosis Basophilic Stippling Anisocytosis Microcytosis Macrocytosis Spherocytes Pappenheimer Bodies Sickle Cells Target Cells Tear Drop Cells Ovalocytes Stomatocytes [place] Bodies Echinocytes Acanthocytes (Spur) Rouleaux RBC Agglutinates Schistocytes RBC Morph Comment Sezary Cell APTT PTT Ratio Sodium 122 L Potassium 2.4 L* Chloride 81 L Carbon Dioxide 24 Anion Gap 18.0 H BUN 117 H Creatinine 7.51 H* D Est Cr Clr Drug Dosing 9.7 Est GFR ( Amer) 7.8 Est GFR (Non-Af Amer) 6.7 BUN/Creatinine Ratio 15.3 Glucose 73 Osmolality Lactate Calcium 8.8 Phosphorus Magnesium 2.2 Total Bilirubin Direct Bilirubin AST ALT Alkaline Phosphatase Total Creatine Kinase 21 L Total Protein Albumin Globulin Albumin/Globulin Ratio Lipase TSH 0.723 HCG, Qual Specimen Hemolysis Urine Color Urine Appearance Urine pH Ur Specific [place] Urine Protein Urine Glucose (UA) Urine Ketones Urine Blood Urine Nitrite Urine Bilirubin Urine Urobilinogen Ur Leukocyte Esterase Urine WBC (Auto) Urine RBC (Auto) U Hyaline Cast (Auto) U Epithel Cells (Auto) Urine Bacteria (Auto) Granular Casts Urine Yeast POC Ur Test Nasal Screen MRSA (PCR) Urine Opiates Screen Ur Methadone, Qual Urine Barbiturates Ur Phencyclidine (PCP) U Amphetamin/Meth Scrn MDMA (Ecstasy) Screen U Benzodiazepines Scrn Ur Cocaine Metabolite U Marijuana (THC) Screen Ethyl Alcohol mg/dL Influenza Type A (PCR) Influenza Type B (PCR) 09/26/19 09/26/19 09/26/19 00:46 00:46 00:46 WBC RBC Hgb Hct MCV MCH MCHC RDW Std Deviation RDW Coeff of Vinod Plt Count MPV Immature Gran % (Auto) Neut % (Auto) Lymph % (Auto) [place] % (Auto) Eos % (Auto) Baso % (Auto) Immature Gran # (Auto) Neut # (Auto) Lymph # (Auto) [place] # (Auto) Eos # (Auto) Baso # (Auto) Absolute Nucleated RBC Nucleated RBC % (auto) Neutrophils % (Manual) Band Neutrophils % Lymphocytes % (Manual) Prolymphocyte % Reactive Lymphs % (Man) Monocytes % (Manual) Eosinophils % (Manual) Basophils % (Manual) Metamyelocytes % (Man) Myelocytes % (Man) Promyelocytes % (Man) Blast Cells % (Manual) Plasma Cell % (Manual) Other Cells % Nucleated RBC % Neutrophils # (Manual) Band Neutrophils # Total Absolute Neuts Lymphocytes # (Manual) Prolymphocyte # Reactive Lymphs # Total Abs Lymphocytes Monocytes # (Manual) Eosinophils # (Manual) Basophils # (Manual) Metamyelocytes # (Man) Myelocytes # (Manual) Promyelocytes # (Man) Blast Cells # (Man) Plasma Cell # (Manual) Other Cells # Nucleated RBCs # (Man) Hypersegmented Neuts Hyposegmented Neuts Hypogranular Neuts Large Granular Lymphs # Lrg Granular Lymphs Hairy Cells Smudge Cells Toxic Granulation Toxic Vacuolation Dohle Bodies [place] Platelet Estimate Hypogranular Platelets Clumped Platelets [place] Platelets Platelet Satelliting RBC Morphology Polychromasia Hypochromasia Poikilocytosis Basophilic Stippling Anisocytosis Microcytosis Macrocytosis Spherocytes Pappenheimer Bodies Sickle Cells Target Cells Tear Drop Cells Ovalocytes Stomatocytes [place] Bodies Echinocytes Acanthocytes (Spur) Rouleaux RBC Agglutinates Schistocytes RBC Morph Comment Sezary Cell APTT 28.3 PTT Ratio 1.0 Sodium Potassium Chloride Carbon Dioxide Anion Gap BUN Creatinine Est Cr Clr Drug Dosing Est GFR ( Amer) Est GFR (Non-Af Amer) BUN/Creatinine Ratio Glucose Osmolality 300 Lactate 0.9 Calcium Phosphorus Magnesium Total Bilirubin Direct Bilirubin AST ALT Alkaline Phosphatase Total Creatine Kinase Total Protein Albumin Globulin Albumin/Globulin Ratio Lipase TSH HCG, Qual Specimen Hemolysis Urine Color Urine Appearance Urine pH Ur Specific [place] Urine Protein Urine Glucose (UA) Urine Ketones Urine Blood Urine Nitrite Urine Bilirubin Urine Urobilinogen Ur Leukocyte Esterase Urine WBC (Auto) Urine RBC (Auto) U Hyaline Cast (Auto) U Epithel Cells (Auto) Urine Bacteria (Auto) Granular Casts Urine Yeast POC Ur Test Nasal Screen MRSA (PCR) Urine Opiates Screen Ur Methadone, Qual Urine Barbiturates Ur Phencyclidine (PCP) U Amphetamin/Meth Scrn MDMA (Ecstasy) Screen U Benzodiazepines Scrn Ur Cocaine Metabolite U Marijuana (THC) Screen Ethyl Alcohol mg/dL Influenza Type A (PCR) Influenza Type B (PCR) 09/26/19 09/26/19 09/26/19 00:46 01:25 07:39 WBC 33.65 H* RBC 2.74 L Hgb 10.8 L Hct 29.9 L MCV 109.1 H MCH 39.4 H MCHC 36.1 H RDW Std Deviation 55.1 H RDW Coeff of Vinod 13.9 Plt Count 57 L MPV Immature Gran % (Auto) 2.2 Neut % (Auto) 95.3 Lymph % (Auto) 2.2 [place] % (Auto) 0.1 Eos % (Auto) 0.1 Baso % (Auto) 0.1 Immature Gran # (Auto) 0.75 H Neut # (Auto) 32.06 H Lymph # (Auto) 0.74 L [place] # (Auto) 0.04 L Eos # (Auto) 0.03 Baso # (Auto) 0.03 Absolute Nucleated RBC Nucleated RBC % (auto) Neutrophils % (Manual) Band Neutrophils % Lymphocytes % (Manual) Prolymphocyte % Reactive Lymphs % (Man) Monocytes % (Manual) Eosinophils % (Manual) Basophils % (Manual) Metamyelocytes % (Man) Myelocytes % (Man) Promyelocytes % (Man) Blast Cells % (Manual) Plasma Cell % (Manual) Other Cells % Nucleated RBC % Neutrophils # (Manual) Band Neutrophils # Total Absolute Neuts Lymphocytes # (Manual) Prolymphocyte # Reactive Lymphs # Total Abs Lymphocytes Monocytes # (Manual) Eosinophils # (Manual) Basophils # (Manual) Metamyelocytes # (Man) Myelocytes # (Manual) Promyelocytes # (Man) Blast Cells # (Man) Plasma Cell # (Manual) Other Cells # Nucleated RBCs # (Man) Hypersegmented Neuts Hyposegmented Neuts Hypogranular Neuts Large Granular Lymphs # Lrg Granular Lymphs Hairy Cells Smudge Cells Toxic Granulation 2+ Toxic Vacuolation Dohle Bodies 1+ [place] Platelet Estimate Decreased L Hypogranular Platelets Clumped Platelets [place] Platelets Platelet Satelliting RBC Morphology Polychromasia Hypochromasia Poikilocytosis Basophilic Stippling Anisocytosis Microcytosis Macrocytosis Spherocytes Pappenheimer Bodies Sickle Cells Target Cells Tear Drop Cells Ovalocytes Stomatocytes [place] Bodies Echinocytes Acanthocytes (Spur) Rouleaux RBC Agglutinates Schistocytes RBC Morph Comment Sezary Cell APTT PTT Ratio Sodium Potassium Chloride Carbon Dioxide Anion Gap BUN Creatinine Est Cr Clr Drug Dosing Est GFR ( Amer) Est GFR (Non-Af Amer) BUN/Creatinine Ratio Glucose Osmolality Lactate Calcium Phosphorus Magnesium Total Bilirubin Direct Bilirubin AST ALT Alkaline Phosphatase Total Creatine Kinase Total Protein Albumin Globulin Albumin/Globulin Ratio Lipase TSH HCG, Qual Specimen Hemolysis Urine Color Urine Appearance Urine pH Ur Specific [place] Urine Protein Urine Glucose (UA) Urine Ketones Urine Blood Urine Nitrite Urine Bilirubin Urine Urobilinogen Ur Leukocyte Esterase Urine WBC (Auto) Urine RBC (Auto) U Hyaline Cast (Auto) U Epithel Cells (Auto) Urine Bacteria (Auto) Granular Casts Urine Yeast POC Ur Test Nasal Screen MRSA (PCR) Urine Opiates Screen Ur Methadone, Qual Urine Barbiturates Ur Phencyclidine (PCP) U Amphetamin/Meth Scrn MDMA (Ecstasy) Screen U Benzodiazepines Scrn Ur Cocaine Metabolite U Marijuana (THC) Screen Ethyl Alcohol mg/dL < 3.0 Influenza Type A (PCR) Neg for Influ A Influenza Type B (PCR) Neg for Influ B 09/26/19 09/26/19 09/26/19 07:39 07:39 12:03 WBC RBC Hgb Hct MCV MCH MCHC RDW Std Deviation RDW Coeff of Vinod Plt Count MPV Immature Gran % (Auto) Neut % (Auto) Lymph % (Auto) [place] % (Auto) Eos % (Auto) Baso % (Auto) Immature Gran # (Auto) Neut # (Auto) Lymph # (Auto) [place] # (Auto) Eos # (Auto) Baso # (Auto) Absolute Nucleated RBC Nucleated RBC % (auto) Neutrophils % (Manual) Band Neutrophils % Lymphocytes % (Manual) Prolymphocyte % Reactive Lymphs % (Man) Monocytes % (Manual) Eosinophils % (Manual) Basophils % (Manual) Metamyelocytes % (Man) Myelocytes % (Man) Promyelocytes % (Man) Blast Cells % (Manual) Plasma Cell % (Manual) Other Cells % Nucleated RBC % Neutrophils # (Manual) Band Neutrophils # Total Absolute Neuts Lymphocytes # (Manual) Prolymphocyte # Reactive Lymphs # Total Abs Lymphocytes Monocytes # (Manual) Eosinophils # (Manual) Basophils # (Manual) Metamyelocytes # (Man) Myelocytes # (Manual) Promyelocytes # (Man) Blast Cells # (Man) Plasma Cell # (Manual) Other Cells # Nucleated RBCs # (Man) Hypersegmented Neuts Hyposegmented Neuts Hypogranular Neuts Large Granular Lymphs # Lrg Granular Lymphs Hairy Cells Smudge Cells Toxic Granulation Toxic Vacuolation Dohle Bodies [place] Platelet Estimate Hypogranular Platelets Clumped Platelets [place] Platelets Platelet Satelliting RBC Morphology Polychromasia Hypochromasia Poikilocytosis Basophilic Stippling Anisocytosis Microcytosis Macrocytosis Spherocytes Pappenheimer Bodies Sickle Cells Target Cells Tear Drop Cells Ovalocytes Stomatocytes [place] Bodies Echinocytes Acanthocytes (Spur) Rouleaux RBC Agglutinates Schistocytes RBC Morph Comment Sezary Cell APTT PTT Ratio Sodium 125 L 126 L Potassium 2.9 L D Chloride 88 L Carbon Dioxide 22 Anion Gap 15.0 H BUN 112 H Creatinine 6.28 H* D Est Cr Clr Drug Dosing 11.6 Est GFR ( Amer) 9.7 Est GFR (Non-Af Amer) 8.4 BUN/Creatinine Ratio 17.9 Glucose 73 Osmolality Lactate Calcium 8.7 Phosphorus 7.3 H Magnesium 2.3 Total Bilirubin 1.7 H Direct Bilirubin 1.0 H AST 32 ALT 12 Alkaline Phosphatase 176 H Total Creatine Kinase Total Protein 5.6 L Albumin 1.1 L Globulin Albumin/Globulin Ratio Lipase TSH HCG, Qual Specimen Hemolysis Urine Color Urine Appearance Urine pH Ur Specific [place] Urine Protein Urine Glucose (UA) Urine Ketones Urine Blood Urine Nitrite Urine Bilirubin Urine Urobilinogen Ur Leukocyte Esterase Urine WBC (Auto) Urine RBC (Auto) U Hyaline Cast (Auto) U Epithel Cells (Auto) Urine Bacteria (Auto) Granular Casts Urine Yeast POC Ur Test Nasal Screen MRSA (PCR) Urine Opiates Screen Ur Methadone, Qual Urine Barbiturates Ur Phencyclidine (PCP) U Amphetamin/Meth Scrn MDMA (Ecstasy) Screen U Benzodiazepines Scrn Ur Cocaine Metabolite U Marijuana (THC) Screen Ethyl Alcohol mg/dL Influenza Type A (PCR) Influenza Type B (PCR) 09/26/19 09/26/19 14:03 Unknown WBC RBC Hgb Hct MCV MCH MCHC RDW Std Deviation RDW Coeff of Vinod Plt Count MPV Immature Gran % (Auto) Neut % (Auto) Lymph % (Auto) [place] % (Auto) Eos % (Auto) Baso % (Auto) Immature Gran # (Auto) Neut # (Auto) Lymph # (Auto) [place] # (Auto) Eos # (Auto) Baso # (Auto) Absolute Nucleated RBC Nucleated RBC % (auto) Neutrophils % (Manual) Band Neutrophils % Lymphocytes % (Manual) Prolymphocyte % Reactive Lymphs % (Man) Monocytes % (Manual) Eosinophils % (Manual) Basophils % (Manual) Metamyelocytes % (Man) Myelocytes % (Man) Promyelocytes % (Man) Blast Cells % (Manual) Plasma Cell % (Manual) Other Cells % Nucleated RBC % Neutrophils # (Manual) Band Neutrophils # Total Absolute Neuts Lymphocytes # (Manual) Prolymphocyte # Reactive Lymphs # Total Abs Lymphocytes Monocytes # (Manual) Eosinophils # (Manual) Basophils # (Manual) Metamyelocytes # (Man) Myelocytes # (Manual) Promyelocytes # (Man) Blast Cells # (Man) Plasma Cell # (Manual) Other Cells # Nucleated RBCs # (Man) Hypersegmented Neuts Hyposegmented Neuts Hypogranular Neuts Large Granular Lymphs # Lrg Granular Lymphs Hairy Cells Smudge Cells Toxic Granulation Toxic Vacuolation Dohle Bodies [place] Platelet Estimate Hypogranular Platelets Clumped Platelets [place] Platelets Platelet Satelliting RBC Morphology Polychromasia Hypochromasia Poikilocytosis Basophilic Stippling Anisocytosis Microcytosis Macrocytosis Spherocytes Pappenheimer Bodies Sickle Cells Target Cells Tear Drop Cells Ovalocytes Stomatocytes [place] Bodies Echinocytes Acanthocytes (Spur) Rouleaux RBC Agglutinates Schistocytes RBC Morph Comment Sezary Cell APTT PTT Ratio Sodium 125 L Potassium Pending Chloride 91 L Carbon Dioxide 21 Anion Gap 13.0 H BUN 111 H Creatinine 5.50 H* D Est Cr Clr Drug Dosing 13.3 Est GFR ( Amer) 11.4 Est GFR (Non-Af Amer) 9.8 BUN/Creatinine Ratio 20.2 H Glucose 85 Osmolality Lactate Calcium 9.0 Phosphorus Magnesium Total Bilirubin Direct Bilirubin AST ALT Alkaline Phosphatase Total Creatine Kinase Total Protein Albumin Globulin Albumin/Globulin Ratio Lipase TSH HCG, Qual Specimen Hemolysis Urine Color Urine Appearance Urine pH Ur Specific [place] Urine Protein Urine Glucose (UA) Urine Ketones Urine Blood Urine Nitrite Urine Bilirubin Urine Urobilinogen Ur Leukocyte Esterase Urine WBC (Auto) Urine RBC (Auto) U Hyaline Cast (Auto) U Epithel Cells (Auto) Urine Bacteria (Auto) Granular Casts Urine Yeast POC Ur Test Nasal Screen MRSA (PCR) Negative Urine Opiates Screen Ur Methadone, Qual Urine Barbiturates Ur Phencyclidine (PCP) U Amphetamin/Meth Scrn MDMA (Ecstasy) Screen U Benzodiazepines Scrn Ur Cocaine Metabolite U Marijuana (THC) Screen Ethyl Alcohol mg/dL Influenza Type A (PCR) Influenza Type B (PCR)
--- NOTE | 2019-09-26 18:04 | CT Scan Report ---
CT SCAN OF THE ORBITS WITHOUT IV CONTRAST CLINICAL HISTORY: Bilateral eye bruising. Recent seizure. COMPARISON STUDY: CT of the brain dated 09/25/2019 end 09/09/2018. TECHNIQUE: High-resolution CT scan of the orbits is performed. Images are reviewed in the axial, sag ittal, and coronal planes. IV contrast was not administered for this examination. A dose lowering te chnique was utilized adhering to the principles of ALARA. CT DOSE: 402.64 mGy.cm FINDINGS: The skeletal structures are well mineralized. No acute fracture is identified. 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 The bony orbits are otherwise intact and t he orbital contents are within normal limits noting a right ocular lens implant. There is no evidence of intra or extraconal mass lesion. The extraocular muscles are normal and symmetric. The zygomatic arches, nasal bones, and pterygoid plates are preserved. Visualized portions of the mandible and the maxilla are intact. The temporomandibular joints are maintained. There are no layering blood products within the paranasal sinuses. There is mild mucosal thickening within the maxillary antra. A small a ir-fluid levels noted on the left. Mucosal thickening is noted within the left ethmoid sinuses. Masto id air cells are well pneumatized. The visualized calvarium and upper cervical spine are maintained. Partially imaged brain parenchyma is within normal limits. IMPRESSION: 1. No acute fracture is identified. 2. 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 This was also present on th e 09/09/2018 CT of the brain. 3. A right ocular lens implant is noted. Electronically signed by: Alejandro Phan M.D. 09/26/2019 6:03 PM
[2019-09-26] MEDS ORDERED: GADOBUTROL 65ML VIAL IV PRN (18:24)
--- NOTE | 2019-09-26 18:59 | Magnetic Resonance Report ---
MRI OF THE BRAIN COMBO CLINICAL HISTORY: Seizure. Alcohol withdrawal. COMPARISON STUDY: CT of the brain dated 09/25/2019. TECHNIQUE: MRI of the brain was performed utilizing various T1 and T2-weighted sequences in the axial , sagittal, and coronal planes. Contrast-enhanced sequences were acquired following the administratio n of 6.5 cc of Gadavist. The examination is degraded by motion artifact. The examination is performed using the seizure protocol. FINDINGS: Brain parenchyma: The brain parenchyma is normal in appearance. There is no hemorrhage or mass effect . There is no restricted diffusion to suggest acute ischemia. No enhancing mass lesion is identified on the postcontrast images. Arana-white matter differentiation is preserved. No extra-axial fluid candice ection is seen. The cerebellar tonsils are normal in configuration. An 8 mm pineal cyst is incidental ly noted. The hippocampi are normal and symmetric. Ventricles, sulci, and cisterns: Normal in configuration. Pituitary and sella: Unremarkable. Intracranial vasculature: Normal flow voids are maintained at the skull base. Orbits: The bony orbits are grossly intact. Orbital contents are normal in appearance noting a right ocular lens implant. Sinuses and mastoids: There is mild mucosal thickening and a small air-fluid level noted in the left maxillary antrum. Trace mucosal thickening seen in the ethmoid sinuses. The mastoid air cells are garry ar. Calvarium: Unremarkable. Cervical cord: Partially visualized cervical spinal cord is normal in morphology and signal intensity . IMPRESSION: No acute intracranial abnormality. Electronically signed by: Alejandro Phan M.D. 09/26/2019 6:57 PM
[2019-09-26 19:39] LABS: BUN Creatinine Ratio 21.8 (10-20); Calcium 9.1 mg/dl (8.5-10.1); Creatinine Clr Calc Pharmacy 14.5 ml/min; Est GFR (African American) 12.7; Potassium 3.8 mmol/L (3.5-5.1)
[2019-09-26 19:40] LABS: Potassium 3.8 mmol/L (3.5-5.1)
[2019-09-27] MEDS: LEVALBUTEROL HCL 0.63 MG/3 ML NEB NEB SCH ×4 (01:14→20:05)
[2019-09-27] MEDS: IPRATROPIUM BROMIDE NEB SOLN 0.02% 2.5 ML VIAL INH SCH ×4 (01:15→20:05)
[2019-09-27] MEDS: OXYCODONE HCL IR 5 MG TAB (IMMEDIATE RELEASE) PO PRN ×3 (03:00→18:21)
[2019-09-27] MEDS: ARIPiprazole 5 MG TAB PO SCH (08:46)
[2019-09-27 08:47] LABS: BUN Creatinine Ratio 29.2 (10-20); Calcium 9.2 mg/dl (8.5-10.1); Creatinine Clr Calc Pharmacy 23.1 ml/min; Est GFR (African American) 22.2; Est GFR (Non-African American) 19.2; Magnesium 2.2 mg/dl (1.8-2.4); Potassium 3.9 mmol/L (3.5-5.1)
[2019-09-27 08:53] LABS: Hematocrit (blood only) 30.4 % (37-47); Hemoglobin 10.5 g/dL (12.0-16.0); Mean Corpuscular Hemoglobin 38.9 pg (25-34); Mean Corpuscular Hgb Conc 34.5 g/dL (32-36); Mean Corpuscular Volume 112.6 fL (80-100); Mean Platelet Volume 13.3 fL (7.4-10.4); Platelet Count 71 K/uL (130-400); RDW Coefficient of Variation 13.8 % (11.5-14.5); RDW Standard Deviation 56.2 fL (36.4-46.3); White Blood Count 24.39 K/uL (4.8-10.8)
[2019-09-27] MEDS: NICOTINE 14 MG/24 HR PATCH TD SCH (08:53)
[2019-09-27 08:54] LABS: Basophils # (auto) 0.02 K/uL (0-0.2); Basophils % (auto) 0.1 %; Eosinophils # (auto) 0.02 K/uL (0-0.5); Eosinophils % (auto) 0.1 %; Howell-Jolly Bodies 1+; Immature Granulocytes # (auto) 0.95 K/uL (0.00-0.02); Immature Granulocytes % (auto) 3.9 %; Lymphocytes # (auto) 0.96 K/uL (1.2-3.4); Lymphocytes % (auto) 3.9 %; Macrocytosis Present; Monocytes # (auto) 0.14 K/uL (0.11-0.59); Monocytes % (auto) 0.6 %; Neutrophils % (auto) 91.4 %; Platelet Estimate Decreased (Normal)
--- NOTE | 2019-09-27 09:49 | Nephrology Progress Note ---
Date of Service September 27, 2019 Assessment & Plan (1) BENJAMIN (acute kidney injury): Patient with acute kidney injury due to ischemic ATN in setting of sepsis and NSAID use. Creatinine is better today at 3.1. Urinalysis showing granular casts. Ultrasound shows no hydronephrosis. Management of ATN is supportive. Patient is making urine. No indication for dialysis but cannot rule out dialysis need during this admission. I discussed the possibility of dialysis if renal function does not improve with the patient and the father -Monitor input output. -Monitor renal function with BMP daily. -I emphasized the need to avoid NSAIDs completely even after discharge -Start Ringer lactate 125 mL/h. (2) Gram-positive bacteremia: Patient with gram-positive bacteremia. She is getting Zosyn and doxycycline per primary team. Renally dose antibiotics for GFR less than 15 mL/min (3) Acute hyponatremia: Patient with acute hyponatremia likely due to hypovolemic hyponatremia. Sodium is improving to 129 this morning. Monitor sodium daily (4) Pneumonia: Patient with pneumonia suspected to be due to aspiration. She is receiving antibiotics per primary team. (5) Hypokalemia: Patient with hypokalemia due to vomiting. K3.9 today. Monitor and replace as needed. Subjective She feels better this morning. She is urinating more. No blood in the urine. No shortness of breath. No vomiting or diarrhea Review of Systems Review of Systems: All systems reviewed & are unremarkable except as noted in HPI & below Physical Exam Physical Exam: General exam: Appears comfortable, no acute distress HEENT: Pupils are equal and reactive to light Neck: No JVD, neck is supple trachea is midline Respiratory system: Clear breath sounds bilaterally. Gastrointestinal: Abdomen is soft, non distended, non tender, bowel sounds are present CVS: Regular rate and rhythm. No murmurs, rubs or gallops Musculoskeletal: No joint or muscle tenderness Extremities: Non tender, no edema, peripheral pulses are present Neuro: Oriented, no tremors, no focal neurological deficits Skin: No rashes, periorbital hematoma bilaterally Results & Data Vital Signs (Past 12 Hours) Vital Signs Temp Pulse Pulse Resp BP Pulse Ox 09/27/19 07:31 81 16 93 09/27/19 07:00 36.9 C 95 H 16 105/70 92 09/27/19 04:00 36.8 C 92 H 18 114/76 90 09/27/19 01:17 88 16 94 09/27/19 00:06 36.5 C 91 H 20 121/87 94 09/26/19 23:30 89 Laboratory Results Laboratory Results - last 24 hr 09/26/19 09/26/19 09/26/19 12:03 14:03 18:53 WBC RBC Hgb Hct MCV MCH MCHC RDW Std Deviation RDW Coeff of Vinod Plt Count MPV Immature Gran % (Auto) Neut % (Auto) Lymph % (Auto) [place] % (Auto) Eos % (Auto) Baso % (Auto) Immature Gran # (Auto) Neut # (Auto) Lymph # (Auto) [place] # (Auto) Eos # (Auto) Baso # (Auto) Platelet Estimate Macrocytosis [place] Bodies Sodium 126 L 125 L 128 L Potassium 3.8 D 3.8 Chloride 91 L 93 L Carbon Dioxide 21 24 Anion Gap 13.0 H 11.0 BUN 111 H 110 H Creatinine 5.50 H* D 5.02 H* D Est Cr Clr Drug Dosing 13.3 14.5 Est GFR ( Amer) 11.4 12.7 Est GFR (Non-Af Amer) 9.8 11.0 BUN/Creatinine Ratio 20.2 H 21.8 H Glucose 85 80 Calcium 9.0 9.1 Magnesium Nasal Screen MRSA (PCR) 09/26/19 09/27/19 09/27/19 Unknown 07:49 07:49 WBC 24.39 H RBC 2.70 L Hgb 10.5 L Hct 30.4 L MCV 112.6 H MCH 38.9 H MCHC 34.5 RDW Std Deviation 56.2 H RDW Coeff of Vinod 13.8 Plt Count 71 L MPV 13.3 H Immature Gran % (Auto) 3.9 Neut % (Auto) 91.4 Lymph % (Auto) 3.9 [place] % (Auto) 0.6 Eos % (Auto) 0.1 Baso % (Auto) 0.1 Immature Gran # (Auto) 0.95 H Neut # (Auto) 22.30 H Lymph # (Auto) 0.96 L [place] # (Auto) 0.14 Eos # (Auto) 0.02 Baso # (Auto) 0.02 Platelet Estimate Decreased L Macrocytosis Present [place] Bodies 1+ Sodium 129 L Potassium 3.9 Chloride 97 L Carbon Dioxide 21 Anion Gap 11.0 BUN 92 H Creatinine 3.16 H D Est Cr Clr Drug Dosing 23.1 Est GFR ( Amer) 22.2 Est GFR (Non-Af Amer) 19.2 BUN/Creatinine Ratio 29.2 H Glucose 94 Calcium 9.2 Magnesium 2.2 Nasal Screen MRSA (PCR) Negative (1) Pneumonia Laterality: right Lung location: upper lobe of lung Pneumonia type: due to unspecified organism Qualified Code(s): J18.9 - Pneumonia, unspecified organism
[2019-09-27] MEDS: PIPERACILLIN/TAZOBACTAM 3.375 GM in DEXTROSE 5% 100 ML IV SCH (10:03)
[2019-09-27] MEDS: LACTATED RINGER'S 1,000 ML IV SCH ×2 (10:03→20:31)
[2019-09-27] MEDS: FLUOXETINE HCL 20 MG CAP PO SCH (10:03)
--- NOTE | 2019-09-27 13:35 | Electroencephalogram ---
EEG Procedure Note Date of Service September 27, 2019 Start / End Times Start Time: 11:45 End Time: 12:[address] Rodriguez History A 29 year old woman with possible seizure. EEG performed for evaluation of epileptiform activity. Home Medication List Home Medications Medication Instructions Recorded Confirmed Type fluoxetine [Prozac] 60 mg PO DAILY 11/03/18 09/25/19 History aripiprazole [Abilify] 5 mg PO DAILY 09/25/19 09/25/19 History Inpatient Medication List Aripiprazole (Abilify) 5 mg PO DAILY [facility] Stop: 10/26/19 08:59 Last Admin: 09/27/19 08:46 Dose: 5 mg Documented by: [id number] Admin: 09/26/19 07:54 Dose: 5 mg Documented by: [id number] Fluoxetine HCl (Prozac) 60 mg PO DAILY [facility] Stop: 10/27/19 09:14 Last Admin: 09/27/19 10:03 Dose: 60 mg Documented by: [id number] Gadobutrol (Gadavist 65ml) 6.5 ml IV ONCE PRN PRN Reason: Interaction Checking Stop: 09/30/19 18:23 Last Admin: 09/26/19 18:24 Dose: 6.5 ml Documented by: [id number] Piperacillin Sod/Tazobactam (Sod 3.375 gm/ Dextrose) 115 mls @ 230 mls/hr IV Q12H RUSS; Protocol Stop: 10/03/19 07:59 Last Admin: 09/27/19 10:03 Dose: 28.8 mls/hr Documented by: [id number] Infusion: 09/27/19 01:32 Dose: 0 mls/hr Documented by: [id number] Admin: 09/26/19 21:12 Dose: 28.8 mls/hr Documented by: [id number] Infusion: 09/26/19 13:15 Dose: 0 mls/hr Documented by: [id number] Admin: 09/26/19 09:34 Dose: 28.8 mls/hr Documented by: [id number] Lactated Ringer's (Lr) 1,000 mls @ 125 mls/hr IV .Q8H RUSS Stop: 10/27/19 08:44 Last Admin: 09/27/19 10:03 Dose: 125 mls/hr Documented by: [id number] Ipratropium Revloc (Atrovent 0.02% 0.5mg/2.5ml) 0.5 mg INH Q6R [facility] Stop: 10/26/19 09:29 Last Admin: 09/27/19 07:18 Dose: 0.5 mg Documented by: [id number] Admin: 09/27/19 01:15 Dose: 0.5 mg Documented by: [id number] Admin: 09/26/19 19:58 Dose: 0.5 mg Documented by: [id number] Admin: 09/26/19 13:12 Dose: Not Given Documented by: [id number] Admin: 09/26/19 11:11 Dose: Not Given Documented by: [id number] Levalbuterol HCl (Xopenex 0.63 Mg/3 Ml Neb) 0.63 mg NEB Q6R [facility] Stop: 10/26/19 09:29 Last Admin: 09/27/19 07:18 Dose: 0.63 mg Documented by: [id number] Admin: 09/27/19 01:14 Dose: 0.63 mg Documented by: [id number] Admin: 09/26/19 19:58 Dose: 0.63 mg Documented by: [id number] Admin: 09/26/19 13:12 Dose: Not Given Documented by: [id number] Admin: 09/26/19 11:11 Dose: Not Given Documented by: [id number] Miscellaneous (Remove Nicoderm Patch) 1 ea N/A DAILY@[id number] [facility] Stop: 10/26/19 08:58 Last Admin: 09/27/19 08:54 Dose: 1 ea Documented by: [id number] Admin: 09/26/19 07:54 Dose: 1 ea Documented by: [id number] Nicotine (Nicoderm Cq) 14 mg TD QAM [facility] Stop: 10/26/19 03:39 Last Admin: 09/27/19 08:53 Dose: 14 mg Documented by: [id number] Admin: 09/26/19 07:54 Dose: 14 mg Documented by: [id number] Admin: 09/26/19 04:10 Dose: 14 mg Documented by: [id number] Oxycodone HCl (Roxicodone Immediate Rel) 5 mg PO Q4H PRN PRN Reason: Pain Stop: 10/10/19 02:28 Last Admin: 09/27/19 08:44 Dose: 5 mg Documented by: [id number] Admin: 09/27/19 03:00 Dose: 5 mg Documented by: [id number] Admin: 09/26/19 22:41 Dose: 5 mg Documented by: [id number] Admin: 09/26/19 10:33 Dose: 5 mg Documented by: [id number] Discontinued Medications Hydroxyzine HCl (Vistaril) 10 mg PO NOW STA Stop: 09/26/19 04:09 Last Admin: 09/26/19 04:41 Dose: 10 mg Documented by: [id number] Sodium Chloride (Nss 1000ml) 1,000 mls @ 999 mls/hr IV .Q1H1M ONE Stop: 09/25/19 22:22 Last Infusion: 09/26/19 00:32 Dose: 0 mls/hr Documented by: [id number] Admin: 09/25/19 22:15 Dose: 999 mls/hr Documented by: [id number] Sodium Chloride (Nss 1000ml) 1,000 mls @ 999 mls/hr IV .Q1H1M ONE Stop: 09/26/19 00:06 Last Infusion: 09/26/19 01:22 Dose: 0 mls/hr Documented by: [id number] Admin: 09/26/19 00:17 Dose: 999 mls/hr Documented by: [id number] Piperacillin Sod/Tazobactam Sod (Zosyn) 4.5 gm in 120 mls @ 240 mls/hr IV NOW ONE Stop: 09/25/19 23:44 Last Infusion: 09/26/19 01:01 Dose: 0 mls/hr Documented by: [id number] Admin: 09/26/19 00:17 Dose: 240 mls/hr Documented by: [id number] Thiamine HCl 100 mg/ Syringe 10 mls @ 2 mls/min IV NOW ONE Stop: 09/26/19 01:04 Last Admin: 09/26/19 01:04 Dose: 2 mls/min Documented by: [id number] Potassium Chloride 40 meq/ (Sodium Chloride) 1,020 mls @ 40 mls/hr IV .Q24H RUSS Stop: 09/27/19 02:59 Last Infusion: 09/26/19 13:41 Dose: 0 mls/hr Documented by: [id number] Infusion: 09/26/19 13:15 Dose: 40 mls/hr Documented by: [id number] Infusion: 09/26/19 09:00 Dose: 0 mls/hr Documented by: [id number] Admin: 09/26/19 03:23 Dose: 40 mls/hr Documented by: [id number] Ampicillin Sodium/Sulbactam Sodium 3,000 mg/ Sodium Chloride 108 mls @ 216 mls/hr IV Q24H RUSS Stop: 10/03/19 03:59 Last Infusion: 09/26/19 04:06 Dose: 0 mls/hr Documented by: [id number] Admin: 09/26/19 03:22 Dose: 216 mls/hr Documented by: [id number] Doxycycline Hyclate 100 mg/ (Dextrose) 110 mls @ 50 mls/hr IV Q12H RUSS Stop: 10/03/19 07:59 Last Infusion: 09/26/19 13:15 Dose: 0 mls/hr Documented by: [id number] Admin: 09/26/19 11:08 Dose: 50 mls/hr Documented by: [id number] Influenza Virus Vaccine Quadrival (Flucelvax Quad Vaccine) 0.5 ml IM .ONCE ONE Stop: 09/26/19 08:01 Last Admin: 09/26/19 11:09 Dose: 0.5 ml Documented by: [id number] Lorazepam (Ativan) 0.25 mg PO NOW STA Stop: 09/26/19 03:41 Last Admin: 09/26/19 04:11 Dose: Not Given Documented by: [id number] Morphine Sulfate (Morphine Sulfate) 4 mg IV NOW STA Stop: 09/25/19 21:23 Last Admin: 09/25/19 22:15 Dose: 4 mg Documented by: [id number] Ondansetron HCl (Zofran) 4 mg IV NOW STA Stop: 09/25/19 21:23 Last Admin: 09/25/19 22:15 Dose: 4 mg Documented by: [id number] Potassium Chloride (Klor-Con M10) 50 meq PO NOW STA Stop: 09/26/19 00:26 Last Admin: 09/26/19 01:03 Dose: 50 meq Documented by: [id number] Potassium Chloride (Klor-Con M20) 40 meq PO NOW STA Stop: 09/26/19 02:30 Last Admin: 09/26/19 03:17 Dose: 40 meq Documented by: [id number] Potassium Chloride (Klor-Con M20) 40 meq PO ONE ONE Stop: 09/26/19 03:31 Last Admin: 09/26/19 04:11 Dose: 40 meq Documented by: [id number] Potassium Chloride (Klor-Con M20) 40 meq PO NOW STA Stop: 09/26/19 12:05 Last Admin: 09/26/19 13:21 Dose: 40 meq Documented by: [id number] Description This is a 21 electrode EEG with a single channel dedicated to limited EKG. The electrodes were placed in accordance with the International 10-20 system. REPORT: At the onset of the EEG, the patient is drowsy. The background activity consist of 9 Hz, impersistent, posteriorly dominant, moderate amplitude, symmetric and rhythmic activity that is reactive to eye opening. Anteriorly, it consist of a mixture of low voltage indeterminate activity and 15-25 Hz, persistent, low amplitude, symmetric and rhythmic activity. Stepwise intermittent photic stimulation does not induce any abnormalities. Drowsiness is characterized by low amplitude mixed frequency activity, roving eye movements, and decreased eye blinking and muscle artifact. IMPRESSION: This is a normal awake and drowsy EEG. No epileptiform discharges are recorded.
--- NOTE | 2019-09-27 14:21 | Infectious Disease Progress Nt ---
Date of Service September 27, 2019 Assessment & Plan (1) Pneumococcal sepsis: 29-year-old female with pneumococcal sepsis with pneumonia, improving on antibiotics. Will change patient to IV ceftriaxone 2 g daily, will need 7 days total of IV antibiotics. As I will be leaving hospital after today, Dr. Mora will provide further ID follow-up if necessary. (2) Pneumonia: Subjective Patient seen in follow-up for pneumonia and gram-positive sepsis. Blood culture identified as strep pneumoniae, sensitivities are pending. Feeling better, less short of breath. Review of Systems Review of Systems: All systems reviewed & are unremarkable except as noted in HPI & below Physical Exam Constitutional: WD/WN, vitals as above Eyes: PERRL, conjunctivae normal, anicteric sclerae ENMT: external ear and nose normal, oropharynx normal Neck: trachea midline, no thyromegaly Respiratory: normal respiratory effort; no respiratory distress Auscultation: + rales and + rhonchi Cardiovascular: RRR, no murmur, no edema Heart Sounds: no gallop and no cardiac rub Gastrointestinal (Abdomen): normal bowel sounds, soft, nontender, no hepatosplenomegaly Musculoskeletal: Head/Neck/Chest: normocephalic, head atraumatic and neck supple Skin: no rashes, warm and dry Neurologic: moves all extremities and awake; no meningeal signs Psychiatric: A+Ox3, euthymic affect Lymphatic: no cervical or axillary lymphadenopathy no inguinal lymphadenopathy Results & Data Vital Signs (Past 12 Hours) Vital Signs Temp Pulse Resp BP Pulse Ox 09/27/19 13:42 88 20 95 09/27/19 11:51 36.7 C 86 20 108/70 92 09/27/19 07:31 81 16 93 09/27/19 07:00 36.9 C 95 H 16 105/70 92 09/27/19 04:00 36.8 C 92 H 18 114/76 90 Laboratory Results Short CBC 09/27/19 Range/Units 07:49 WBC 24.39 H (4.8-10.8) K/uL Hgb 10.5 L (12.0-16.0) g/dL Hct 30.4 L (37-47) % Plt Count 71 L (130-400) K/uL BMP 09/26/19 09/26/19 09/27/19 14:03 18:53 07:49 Sodium 125 L 128 L 129 L Potassium 3.8 D 3.8 3.9 Chloride 91 L 93 L 97 L Carbon Dioxide 21 24 21 BUN 111 H 110 H 92 H Creatinine 5.50 H* D 5.02 H* D 3.16 H D Glucose 85 80 94 Calcium 9.0 9.1 9.2 Diagnostic Findings Microbiology 09/26/19 00:14 Blood Aerobic Blood Culture - Preliminary Streptococcus pneumoniae 09/26/19 00:14 Blood Anaerobic Blood Culture - Preliminary Streptococcus pneumoniae 09/25/19 23:40 Blood Aerobic Blood Culture - Preliminary Streptococcus pneumoniae 09/25/19 23:40 Blood Anaerobic Blood Culture - Preliminary Streptococcus pneumoniae 09/25/19 21:10 Urine,Clean Catch Urine Culture - Preliminary Lactobacillus species 09/26/19 09:15 Sputum, Expectorated Gram Stain - Final 09/26/19 09:15 Sputum, Expectorated Sputum Culture - Preliminary Moderate normal arlet present, final report to follow. PG Care Time/CCT Total # of Minutes Spent Total Time Spent with Patient: Total time spent is greater than 50% in coordination of care (as documented) at patient's floor/unit and/or counseling patient: (1) Pneumonia Laterality: right Lung location: upper lobe of lung Pneumonia type: due to unspecified organism Qualified Code(s): J18.9 - Pneumonia, unspecified organism
--- NOTE | 2019-09-27 14:30 | Neurology Progress Note ---
Date of Service September 27, 2019 Assessment & Plan (1) Alcohol withdrawal: 1. EtOH withdrawal seizure 2. EEG no seizure focus identified 3. electrolyte - continue to correct 4. pneumonia- per ID recommendation for treatment 5. consulting- may need inpatient rehab 6. no history of febrile seizure when a child. 7. MRI brain with and without - no acute findings 8. CT face and orbit -no new fractures 9. discussed findings with patient no further neurology work up at this time Supervising Physician Co-Signing Physician Notes I have seen and discussed above patient with Dr Kameron Montes De Oca, neurology Seen and interviewed this young woman and discussed her case with Sahara Swan PA-C, reviewed the notes by Sahara Rodriguez MD laboratory studies and the EEG which was done today that has been interpreted as being normal At this point she is recovering from her tinnitus which may be an aspiration, has had no documented seizures since the event on 07 September, as a CT of the orbits and reveal no significant fracture of an MRI that shows no significant pathology and admits that all of her 5 seizure events have been associated with referral from chronic or at least prolonged ethanol use I continue to feel that these are withdrawal seizures and that we really do not need to offer any chronic anti-epileptic therapy We will sign off the case at this time as exam shows nothing other than a minor tremor she is not requiring any delirium tremens treatment she is through the. Her tremulousness that she had after stopping ethanol and mid August does not have any significant encephalopathy at this point Neurology is going to see her on an as-needed basis but I do not think we need to see her in the office unless of course she would continue to have seizures unrelated withdrawal Kameron Montes De Oca MD Apple Bishop is a 29 year old female who presents to the ED with constant right -sided abdominal pain. The pain was worse with breathing and lying down. She also had SOB. She had a seizure on 09/07/2019 from EtOH withdrawal but refused to come to the hospital. She had nausea and vomiting and couldn't keep any food down and was tremulous for several days. She also had diarrhea. She had her last binge about 2-3 days prior to the seizure. She also states this is the 5 th seizure she has had and all were because of EtOH withdrawal. She knows she has pneumonia and her electrolyses have been off due to the vomiting and diarrhea. She is a ppd smoker but since being sick she is down to 10 cig per day. She denies any other drug use or caffeine use. she states she drinks quart bottles of hard lemonade which is only 8%. Today she states she is feeling a lot better but still has some pain in her chest and now pain in her left shoulder. She denies any other drug use or caffeine use. denies CP, SOB, one sided weakness, numbness tingling, N, V. 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 bilaterally 5/5, hip flex plantar flex ext 5/5 sensation intact to light and cool touch Results & Data Vital Signs (Past 12 Hours) Vital Signs Temp Pulse Resp BP Pulse Ox 09/27/19 13:42 88 20 95 09/27/19 11:51 36.7 C 86 20 108/70 92 09/27/19 07:31 81 16 93 09/27/19 07:00 36.9 C 95 H 16 105/70 92 09/27/19 04:00 36.8 C 92 H 18 114/76 90 Laboratory Results Abnormal lab results 09/26/19 09/26/19 09/27/19 Range/Units 14:03 18:53 07:49 WBC 24.39 H (4.8-10.8) K/uL RBC 2.70 L (4.2-5.4) M/uL Hgb 10.5 L (12.0-16.0) g/dL Hct 30.4 L (37-47) % MCV 112.6 H (80-100) fL MCH 38.9 H (25-34) pg RDW Std Deviation 56.2 H (36.4-46.3) fL Plt Count 71 L (130-400) K/uL MPV 13.3 H (7.4-10.4) fL Immature Gran # (Auto) 0.95 H (0.00-0.02) K/uL Neut # (Auto) 22.30 H (1.4-6.5) K/uL Lymph # (Auto) 0.96 L (1.2-3.4) K/uL Platelet Estimate Decreased L (Normal) Sodium 125 L 128 L (136-145) mmol/L Chloride 91 L 93 L (98-107) mmol/L Anion Gap 13.0 H (3-11) BUN 111 H 110 H (7-18) mg/dl Creatinine 5.50 H* D 5.02 H* D (0.6-1.2) mg/dl BUN/Creatinine Ratio 20.2 H 21.8 H (10-20) 09/27/19 Range/Units 07:49 WBC (4.8-10.8) K/uL RBC (4.2-5.4) M/uL Hgb (12.0-16.0) g/dL Hct (37-47) % MCV (80-100) fL MCH (25-34) pg RDW Std Deviation (36.4-46.3) fL Plt Count (130-400) K/uL MPV (7.4-10.4) fL Immature Gran # (Auto) (0.00-0.02) K/uL Neut # (Auto) (1.4-6.5) K/uL Lymph # (Auto) (1.2-3.4) K/uL Platelet Estimate (Normal) Sodium 129 L (136-145) mmol/L Chloride 97 L (98-107) mmol/L Anion Gap (3-11) BUN 92 H (7-18) mg/dl Creatinine 3.16 H D (0.6-1.2) mg/dl BUN/Creatinine Ratio 29.2 H (10-20) Diagnostic Findings EEG-This is a normal awake and drowsy EEG. No epileptiform discharges are recorded. CT orbits-No acute fracture is identified. 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 This was also present on the 09/09/2018 CT of the brain. A right ocular lens implant is noted. MRI brain- No acute intracranial abnormality.
[2019-09-27] MEDS: cefTRIAXone SODIUM 2,000 MG in DEXTROSE 5% 50 ML IV SCH (16:42)
--- NOTE | 2019-09-27 18:12 | Hospitalist Progress Note ---
Date of Service September 27, 2019 Assessment & Plan (1) Severe sepsis: SEVERE SEPSIS SECONDARY TO PNEUMONIA- POSSIBLE COMMUNITY ACQUIRED, ASPIRATION FROM EMESIS Strep BACTEREMIA Blood cultures: See for strep pneumonia Urine culture: Negative Sputum culture: Moderate normal arlet CT chest: RUL pneumonia, no abscess Afebrile, improving overall ID consulted, Zosyn transitioned to ceftriaxone scheduled nebs, Incentive spirometry repeat CXR in 3 days ACUTE RENAL FAILURE likely Prerenal, ATN from Sepsis Nephro consulted Renal US: no obstruction Crea improving Continue LR HYPONATREMIA appropriately being corrected HYPOKALEMIA likely from emesis, poor intake Replaced SEIZURE EPISODES happened mid-August after patient abstained from alcohol Neurologist consulted, EEG performed Likely secondary to withdrawal seizures HISTORY OF ALCOHOLISM last drink was in mid-August, alcohol level normal no overt signs of withdrawal monitor closely ABNORMAL LIVER ULTRASOUND 1. Mild gallbladder distention is noted along with mild degree of layering sludge. No cholelithiasis or sonographic evidence of acute cholecystitis. 2. No biliary ductal dilation. 3. Increased echogenicity of the liver suggests hepatic steatosis. -- LFTs ok monitor as outpatient THROMBOCYTOPENIA likely from Sepsis, Alcoholism no signs of bleeding monitor RIGHT SUBCONJUNCTIVAL HEMORRHAGE sustained after falling, during apparent seizure episode last month no vision problems, hemorrhage improving as per patient Improved today from 57-71 DVT prophylaxis SCDs, early ambulation for now given thrombocytopenia Disposition patient declining Alcohol rehab discussed with patient in detail and at length all questions answered she is understanding, agreeable, and comfortable with plan of care Subjective Follow-up for acute renal failure, pneumonia, sepsis Seen with KARO King throughout whole encounter Seen resting in bed, comfortable, not in distress States breathing is improving, coughing less No problems voiding No other symptom Review of Systems Review of Systems: All systems reviewed & are unremarkable except as noted in HPI & below Physical Exam Physical Exam: General- oriented x 3, not in distress, speaks in sentences with no effort or accessory muscle use Eyes- anicteric Neck- no JVD Lungs-mild rhonchi right lung, clear on the left, no wheezing Heart- normal rate, regular rhythm; no murmurs Abdomen- normal bowel sounds, nondistended, soft, nontender Extremities- no pretibial edema, no calf tenderness Neuro- alert, oriented x 3; no gross focal neurologic deficits Skin- warm & dry Results & Data Vital Signs (Past 12 Hours) Vital Signs Temp Pulse Resp BP BP Pulse Ox 09/27/19 15:03 36.8 C 96 H 20 115/77 95 09/27/19 13:42 88 20 95 09/27/19 11:51 36.7 C 86 20 108/70 92 09/27/19 07:31 81 16 93 09/27/19 07:00 36.9 C 95 H 16 105/70 92 Laboratory Results Laboratory Results - last 24 hr 09/26/19 09/26/19 09/27/19 14:03 18:53 07:49 WBC 24.39 H RBC 2.70 L Hgb 10.5 L Hct 30.4 L MCV 112.6 H MCH 38.9 H MCHC 34.5 RDW Std Deviation 56.2 H RDW Coeff of Vinod 13.8 Plt Count 71 L MPV 13.3 H Immature Gran % (Auto) 3.9 Neut % (Auto) 91.4 Lymph % (Auto) 3.9 [place] % (Auto) 0.6 Eos % (Auto) 0.1 Baso % (Auto) 0.1 Immature Gran # (Auto) 0.95 H Neut # (Auto) 22.30 H Lymph # (Auto) 0.96 L [place] # (Auto) 0.14 Eos # (Auto) 0.02 Baso # (Auto) 0.02 Platelet Estimate Decreased L Macrocytosis Present [place] Bodies 1+ Sodium 128 L Potassium 3.8 D 3.8 Chloride 93 L Carbon Dioxide 24 Anion Gap 11.0 BUN 110 H Creatinine 5.02 H* D Est Cr Clr Drug Dosing 14.5 Est GFR ( Amer) 12.7 Est GFR (Non-Af Amer) 11.0 BUN/Creatinine Ratio 21.8 H Glucose 80 Calcium 9.1 Magnesium 09/27/19 07:49 WBC RBC Hgb Hct MCV MCH MCHC RDW Std Deviation RDW Coeff of Vinod Plt Count MPV Immature Gran % (Auto) Neut % (Auto) Lymph % (Auto) [place] % (Auto) Eos % (Auto) Baso % (Auto) Immature Gran # (Auto) Neut # (Auto) Lymph # (Auto) [place] # (Auto) Eos # (Auto) Baso # (Auto) Platelet Estimate Macrocytosis [place] Bodies Sodium 129 L Potassium 3.9 Chloride 97 L Carbon Dioxide 21 Anion Gap 11.0 BUN 92 H Creatinine 3.16 H D Est Cr Clr Drug Dosing 23.1 Est GFR ( Amer) 22.2 Est GFR (Non-Af Amer) 19.2 BUN/Creatinine Ratio 29.2 H Glucose 94 Calcium 9.2 Magnesium 2.2
--- NOTE | 2019-09-27 19:04 | XRay Report ---
LEFT SHOULDER 3 VIEWS, LEFT CLAVICLE 2 VIEWS HISTORY: Left shoulder and clavicle pain. pain, r/o fracture COMPARISON: None. FINDINGS: No fracture or dislocation within the left shoulder. The left clavicle is intact. Cartilage spaces are maintained. Soft tissues are unremarkable. No radiopaque foreign bodies. IMPRESSION: Unremarkable left shoulder or left clavicle. Electronically signed by: Dong Silveira M.D. 09/27/2019 7:03 PM
[2019-09-27] MEDS: ACETAMINOPHEN 325 MG TAB PO PRN (20:30)
[2019-09-28] MEDS: OXYCODONE HCL IR 5 MG TAB (IMMEDIATE RELEASE) PO PRN ×4 (00:34→19:55)
[2019-09-28] MEDS: IPRATROPIUM BROMIDE NEB SOLN 0.02% 2.5 ML VIAL INH SCH ×4 (01:17→19:10)
[2019-09-28] MEDS: LEVALBUTEROL HCL 0.63 MG/3 ML NEB NEB SCH ×4 (01:17→19:10)
[2019-09-28] MEDS: ACETAMINOPHEN 325 MG TAB PO PRN (03:29)
[2019-09-28] MEDS: LACTATED RINGER'S 1,000 ML IV SCH ×3 (03:52→18:10)
[2019-09-28 08:27] LABS: Basophils # (auto) 0.02 K/uL (0-0.2); Basophils % (auto) 0.1 %; Eosinophils # (auto) 0.02 K/uL (0-0.5); Eosinophils % (auto) 0.1 %; Hematocrit (blood only) 30.4 % (37-47); Hemoglobin 10.8 g/dL (12.0-16.0); Immature Granulocytes % (auto) 9.8 %; Lymphocytes % (auto) 5.2 %; Macrocytosis Present; Mean Corpuscular Hemoglobin 40.1 pg (25-34); Mean Corpuscular Hgb Conc 35.5 g/dL (32-36); Mean Platelet Volume 13.1 fL (7.4-10.4); Monocytes # (auto) 0.67 K/uL (0.11-0.59); Monocytes % (auto) 3.5 %; Neutrophils # (auto) 15.75 K/uL (1.4-6.5); Neutrophils % (auto) 81.3 %; Platelet Count 100 K/uL (130-400); Platelet Estimate Decreased (Normal); RDW Coefficient of Variation 14.1 % (11.5-14.5); RDW Standard Deviation 57.7 fL (36.4-46.3); Red Blood Count 2.69 M/uL (4.2-5.4); White Blood Count 19.36 K/uL (4.8-10.8)
[2019-09-28 09:20] LABS: BUN Creatinine Ratio 41.9 (10-20); Calcium 8.9 mg/dl (8.5-10.1); Creatinine Clr Calc Pharmacy 77.6 ml/min; Est GFR (African American) 96.4; Est GFR (Non-African American) 83.1; Magnesium 1.4 mg/dl (1.8-2.4); Potassium 4.1 mmol/L (3.5-5.1)
[2019-09-28] MEDS: cefTRIAXone SODIUM 2,000 MG in DEXTROSE 5% 50 ML IV SCH (09:20)
[2019-09-28] MEDS: NICOTINE 14 MG/24 HR PATCH TD SCH (09:25)
[2019-09-28] MEDS: FLUOXETINE HCL 20 MG CAP PO SCH ×2 (09:25→09:26)
[2019-09-28] MEDS: ARIPiprazole 5 MG TAB PO SCH (09:26)
--- NOTE | 2019-09-28 10:32 | Nephrology Progress Note ---
Date of Service September 28, 2019 Assessment & Plan (1) BENJAMIN (acute kidney injury): Patient with acute kidney injury due to ischemic ATN in setting of sepsis and NSAID use. Creatinine is better today at 0.9 but BUN still high. Urinalysis showing granular casts. Ultrasound shows no hydronephrosis. Management of ATN is supportive. Patient is making urine. -Monitor input output. -Monitor renal function with BMP daily. -I emphasized the need to avoid NSAIDs completely even after discharge -Continue Ringer lactate 125 mL/h for today and stop. (2) Gram-positive bacteremia: Patient with gram-positive bacteremia. She is getting Zosyn and dox ycycline per primary team. Renally dose antibiotics for GFR less than 15 mL/min (3) Acute hyponatremia: Patient with acute hyponatremia likely due to hypovolemic hyponatremia. Sodium is improving to 133 this morning. Monitor sodium daily (4) Pneumonia: Patient with pneumonia suspected to be due to aspiration. She is receiving antibiotics per primary team. (5) Hypokalemia: Patient with hypokalemia due to vomiting. Monitor and replace as needed. Subjective She feels better denies any shortness of breath or urinary symptoms. Urine is still dark. Creatinine is back to baseline. No vomiting or diarrhea. She complains of pain in the right lower rib cage Review of Systems Review of Systems: All systems reviewed & are unremarkable except as noted in HPI & below Physical Exam Physical Exam: General exam: Appears comfortable, no acute distress HEENT: Pupils are equal and reactive to light Neck: No JVD, neck is supple trachea is midline Respiratory system: Clear breath sounds bilaterally. Gastrointestinal: Abdomen is soft, non distended, non tender, bowel sounds are present CVS: Regular rate and rhythm. No murmurs, rubs or gallops Musculoskeletal: No joint or muscle tenderness Extremities: Non tender, no edema, peripheral pulses are present Neuro: Oriented, no tremors, no focal neurological deficits Skin: No rashes Results & Data Vital Signs (Past 12 Hours) Vital Signs Temp Pulse Pulse Resp BP Pulse Ox 09/28/19 07:43 37.1 C 86 20 112/73 91 09/28/19 07:27 70 20 95 09/28/19 03:05 37.0 C 85 18 114/76 91 09/28/19 01:17 82 20 95 09/28/19 00:04 83 09/28/19 00:03 37.1 C 78 18 119/79 92 Laboratory Results Laboratory Results - last 24 hr 09/28/19 09/28/19 07:44 07:44 WBC 19.36 H RBC 2.69 L Hgb 10.8 L Hct 30.4 L MCV 113.0 H MCH 40.1 H MCHC 35.5 RDW Std Deviation 57.7 H RDW Coeff of Vinod 14.1 Plt Count 100 L MPV 13.1 H Immature Gran % (Auto) 9.8 Neut % (Auto) 81.3 Lymph % (Auto) 5.2 [place] % (Auto) 3.5 Eos % (Auto) 0.1 Baso % (Auto) 0.1 Immature Gran # (Auto) 1.90 H Neut # (Auto) 15.75 H Lymph # (Auto) 1.00 L [place] # (Auto) 0.67 H Eos # (Auto) 0.02 Baso # (Auto) 0.02 Platelet Estimate Decreased L Macrocytosis Present Sodium 133 L Potassium 4.1 Chloride 100 Carbon Dioxide 23 Anion Gap 10.0 BUN 39 H D Creatinine 0.94 D Est Cr Clr Drug Dosing 77.6 Est GFR ( Amer) 96.4 Est GFR (Non-Af Amer) 83.1 BUN/Creatinine Ratio 41.9 H Glucose 93 Calcium 8.9 Magnesium 1.4 L (1) Pneumonia Laterality: right Lung location: upper lobe of lung Pneumonia type: due to unspecified organism Qualified Code(s): J18.9 - Pneumonia, unspecified organism
[2019-09-28] MEDS: LIDOCAINE 5% 1 PATCH TD SCH (12:49)
[2019-09-28] MEDS: MAGNESIUM OXIDE 400 MG TAB PO SCH ×2 (14:42→21:09)
--- NOTE | 2019-09-28 17:42 | Hospitalist Progress Note ---
Date of Service September 28, 2019 Assessment & Plan (1) Severe sepsis: SEVERE SEPSIS SECONDARY TO PNEUMONIA- POSSIBLE COMMUNITY ACQUIRED, ASPIRATION FROM EMESIS Strep BACTEREMIA Blood cultures: (+) for strep pneumonia Urine culture: Negative Sputum culture: Moderate normal arlet CT chest: RUL pneumonia, no abscess continues to be Afebrile, improving ID consulted, Zosyn transitioned to ceftriaxone scheduled nebs, Incentive spirometry repeat CXR tomorrow ACUTE RENAL FAILURE likely Prerenal, ATN from Sepsis Nephro consulted Renal US: no obstruction Crea back to baseline Continue LR HYPONATREMIA appropriately corrected HYPOKALEMIA likely from emesis, poor intake Replaced SEIZURE EPISODES happened mid-August after patient abstained from alcohol Neurologist consulted, EEG performed Likely secondary to withdrawal seizures HISTORY OF ALCOHOLISM last drink was in mid-August, alcohol level normal no overt signs of withdrawal monitor closely ABNORMAL LIVER ULTRASOUND 1. Mild gallbladder distention is noted along with mild degree of layering sludge. No cholelithiasis or sonographic evidence of acute cholecystitis. 2. No biliary ductal dilation. 3. Increased echogenicity of the liver suggests hepatic steatosis. -- LFTs ok monitor as outpatient THROMBOCYTOPENIA likely from Sepsis, Alcoholism no signs of bleeding improving RIGHT SUBCONJUNCTIVAL HEMORRHAGE sustained after falling, during apparent seizure episode last month no vision problems, hemorrhage improving as per patient Improved today from 57-71 LEFT COLLAR BONE AREA PAIN Clavicle or shoulder xray: no fracture Lidoderm patch, Flexeril PRN DVT prophylaxis SCDs, early ambulation for now given thrombocytopenia Disposition patient declining Alcohol rehab discussed with patient in detail and at length all questions answered she is understanding, agreeable, and comfortable with plan of care Subjective ff up for pneumonia, acute renal failure seen with KARO Banks thru whole encounter states she continues to feel improved no dyspnea, less cough no problems voiding reports left collar bone area pain, worse with movement no other symptoms Review of Systems Review of Systems: All systems reviewed & are unremarkable except as noted in HPI & below Physical Exam Physical Exam: General- oriented x 3, not in distress, speaks in sentences with no effort or accessory muscle use Eyes- anicteric Neck- no JVD no edema, erythema, tenderness, warmth on the left collar bone region Lungs- occasional mild rhonchi BISI lobe clear on the left no wheezing Heart- normal rate, regular rhythm; no murmurs Abdomen- normal bowel sounds, nondistended, soft, nontender Extremities- no pretibial edema, no calf tenderness left shoulder- no edema, erythema, tenderness, warmth, full ROM Neuro- alert, oriented x 3; no gross focal neurologic deficits Skin- warm & dry Results & Data Vital Signs (Past 12 Hours) Vital Signs Temp Pulse Resp BP Pulse Ox 09/28/19 14:51 36.9 C 89 20 118/81 92 09/28/19 13:28 83 18 91 09/28/19 11:30 36.9 C 83 16 121/77 91 09/28/19 07:43 37.1 C 86 20 112/73 91 09/28/19 07:27 70 20 95 Laboratory Results Laboratory Results - last 24 hr 09/28/19 09/28/19 07:44 07:44 WBC 19.36 H RBC 2.69 L Hgb 10.8 L Hct 30.4 L MCV 113.0 H MCH 40.1 H MCHC 35.5 RDW Std Deviation 57.7 H RDW Coeff of Vinod 14.1 Plt Count 100 L MPV 13.1 H Immature Gran % (Auto) 9.8 Neut % (Auto) 81.3 Lymph % (Auto) 5.2 [place] % (Auto) 3.5 Eos % (Auto) 0.1 Baso % (Auto) 0.1 Immature Gran # (Auto) 1.90 H Neut # (Auto) 15.75 H Lymph # (Auto) 1.00 L [place] # (Auto) 0.67 H Eos # (Auto) 0.02 Baso # (Auto) 0.02 Platelet Estimate Decreased L Macrocytosis Present Sodium 133 L Potassium 4.1 Chloride 100 Carbon Dioxide 23 Anion Gap 10.0 BUN 39 H D Creatinine 0.94 D Est Cr Clr Drug Dosing 77.6 Est GFR ( Amer) 96.4 Est GFR (Non-Af Amer) 83.1 BUN/Creatinine Ratio 41.9 H Glucose 93 Calcium 8.9 Magnesium 1.4 L
[2019-09-29] MEDS: OXYCODONE HCL IR 5 MG TAB (IMMEDIATE RELEASE) PO PRN ×4 (00:25→18:27)
[2019-09-29] MEDS: IPRATROPIUM BROMIDE NEB SOLN 0.02% 2.5 ML VIAL INH SCH ×4 (00:55→19:07)
[2019-09-29] MEDS: LEVALBUTEROL HCL 0.63 MG/3 ML NEB NEB SCH ×4 (00:55→19:07)
[2019-09-29] MEDS: LACTATED RINGER'S 1,000 ML IV SCH ×2 (01:54→11:43)
[2019-09-29] MEDS: ACETAMINOPHEN 325 MG TAB PO PRN (03:20)
[2019-09-29 07:19] LABS: Hematocrit (blood only) 27.8 % (37-47); Hemoglobin 9.7 g/dL (12.0-16.0); Mean Corpuscular Hemoglobin 39.8 pg (25-34); Mean Corpuscular Hgb Conc 34.9 g/dL (32-36); Mean Corpuscular Volume 113.9 fL (80-100); Mean Platelet Volume 12.4 fL (7.4-10.4); Platelet Count 147 K/uL (130-400); RDW Standard Deviation 58.3 fL (36.4-46.3); Red Blood Count 2.44 M/uL (4.2-5.4); White Blood Count 22.39 K/uL (4.8-10.8)
[2019-09-29 07:47] LABS: ALC (manual) 1.75 K/uL (1.2-3.4); ANC (manual) 16.97 K/uL (1.4-6.5); Lymphocytes # (manual) 1.75 K/uL (1.2-3.4); Lymphocytes % (manual) 7.8 %; Metamyelocytes # (manual) 1.16 K/uL (0-0); Metamyelocytes % (manual) 5.2 %; Monocytes # (manual) 0.96 K/uL (0.11-0.59); Monocytes % (manual) 4.3 %; Myelocytes # (manual) 1.54 K/uL (0-0); Myelocytes % (manual) 6.9 %; Neutrophils # (manual) 16.97 K/uL (1.4-6.5); Neutrophils % (manual) 75.8 %
[2019-09-29 08:36] LABS: BUN Creatinine Ratio 23.2 (10-20); Blood Urea Nitrogen 12 mg/dl (7-18); Calcium 8.2 mg/dl (8.5-10.1); Carbon Dioxide 24 mmol/L (21-32); Chloride 99 mmol/L (98-107); Creatinine Clr Calc Pharmacy 145.9 ml/min; Est GFR (African American) > 150.0; Est GFR (Non-African American) 132.6; Glucose 83 mg/dl (70-99); Magnesium 0.9 mg/dl (1.8-2.4); Potassium 3.9 mmol/L (3.5-5.1); Sodium 132 mmol/L (136-145)
[2019-09-29] MEDS: MAGNESIUM CHLORIDE 64MG DELAYED REL TAB PO SCH ×2 (09:03→20:25)
[2019-09-29] MEDS: LIDOCAINE 5% 1 PATCH TD SCH (09:08)
[2019-09-29] MEDS: MAGNESIUM SULFATE / D5W 1 GM/100 ML BAG IV SCH ×2 (09:08→10:32)
[2019-09-29] MEDS: NICOTINE 14 MG/24 HR PATCH TD SCH (09:09)
[2019-09-29] MEDS: ARIPiprazole 5 MG TAB PO SCH (09:11)
[2019-09-29] MEDS: FLUOXETINE HCL 20 MG CAP PO SCH (09:13)
--- NOTE | 2019-09-29 09:43 | Nephrology Progress Note ---
Date of Service September 29, 2019 Assessment & Plan (1) BENJAMIN (acute kidney injury): Patient with acute kidney injury due to ischemic ATN in setting of sepsis and NSAID use. Creatinine is better today at 0.5. Urinalysis showed granular casts. Ultrasound shows no hydronephrosis. Patient is making urine. -Monitor input output. -Monitor renal function with BMP daily. -I emphasized the need to avoid NSAIDs completely even after discharge -Stop fluids -Agree with current magnesium supplementation. Will check phosphorus as well. (2) Gram-positive bacteremia: Patient with gram-positive bacteremia. She is getting Zosyn and doxycycline per primary team. Renally dose antibiotics for GFR less than 15 mL/min (3) Acute hyponatremia: Patient with acute hyponatremia likely due to hypovolemic hyponatremia. Sodium is improving to 132 this morning. Monitor sodium daily (4) Pneumonia: Patient with pneumonia suspected to be due to aspiration. She is receiving antibiotics per primary team. (5) Hypokalemia: Patient with hypokalemia due to vomiting. Monitor and replace as needed. Subjective She feels better today. She still has lower rib cage pain with coughing. No shortness of breath. Renal function is back to normal. Sodium still low. Review of Systems Review of Systems: All systems reviewed & are unremarkable except as noted in HPI & below Physical Exam 2 Physical Exam: General exam: Appears comfortable, no acute distress HEENT: Pupils are equal and reactive to light. Some conjunctival hemorrhages Neck: No JVD, neck is supple trachea is midline Respiratory system: Clear breath sounds bilaterally. Gastrointestinal: Abdomen is soft, non distended, non tender, bowel sounds are present CVS: Regular rate and rhythm. No murmurs, rubs or gallops Musculoskeletal: No joint or muscle tenderness Extremities: Non tender, no edema, peripheral pulses are present Neuro: Oriented, no tremors, no focal neurological deficits Skin: No rashes Results & Data Vital Signs (Past 12 Hours) Vital Signs Temp Pulse Pulse Resp BP Pulse Ox 09/29/19 07:28 92 H 16 92 09/29/19 06:49 37.0 C 87 16 123/83 90 09/29/19 02:58 37.1 C 92 H 15 127/87 91 09/29/19 00:55 80 18 98 09/28/19 23:08 96 H 09/28/19 22:48 37.1 C 92 H 18 129/85 91 Laboratory Results Laboratory Results - last 24 hr 09/29/19 09/29/19 06:44 06:44 WBC 22.39 H RBC 2.44 L Hgb 9.7 L Hct 27.8 L MCV 113.9 H MCH 39.8 H MCHC 34.9 RDW Std Deviation 58.3 H RDW Coeff of Vinod 14.0 Plt Count 147 MPV 12.4 H Neutrophils % (Manual) 75.8 Lymphocytes % (Manual) 7.8 Monocytes % (Manual) 4.3 Metamyelocytes % (Man) 5.2 Myelocytes % (Man) 6.9 Neutrophils # (Manual) 16.97 H Total Absolute Neuts 16.97 H Lymphocytes # (Manual) 1.75 Total Abs Lymphocytes 1.75 Monocytes # (Manual) 0.96 H Metamyelocytes # (Man) 1.16 H Myelocytes # (Manual) 1.54 H Sodium 132 L Potassium 3.9 Chloride 99 Carbon Dioxide 24 Anion Gap 9.0 BUN 12 D Creatinine 0.50 L D Est Cr Clr Drug Dosing 145.9 Est GFR ( Amer) > 150.0 Est GFR (Non-Af Amer) 132.6 BUN/Creatinine Ratio 23.2 H Glucose 83 Calcium 8.2 L Magnesium 0.9 L* (1) Pneumonia Laterality: right Lung location: upper lobe of lung Pneumonia type: due to unspecified organism Qualified Code(s): J18.9 - Pneumonia, unspecified organism
[2019-09-29] MEDS: cefTRIAXone SODIUM 2,000 MG in DEXTROSE 5% 50 ML IV SCH (10:34)
--- NOTE | 2019-09-29 15:13 | Hospitalist Progress Note ---
Date of Service September 29, 2019 Assessment & Plan (1) Severe sepsis: (1) Severe sepsis: SEVERE SEPSIS SECONDARY TO PNEUMONIA- POSSIBLE COMMUNITY ACQUIRED, ASPIRATION FROM EMESIS Strep BACTEREMIA Blood cultures: (+) for strep pneumonia Urine culture: Negative Sputum culture: Moderate normal arlet CT chest: RUL pneumonia, no abscess continues to improve ID consulted, Zosyn transitioned to ceftriaxone- to complete 7 days scheduled nebs, Incentive spirometry repeat CXR today ACUTE RENAL FAILURE likely Prerenal, ATN from Sepsis Nephro consulted Renal US: no obstruction Crea back to baseline LR discontinued HYPONATREMIA appropriately corrected HYPOKALEMIA likely from emesis, poor intake Replaced SEIZURE EPISODES happened mid-August after patient abstained from alcohol Neurologist consulted, EEG performed Likely secondary to withdrawal seizures HISTORY OF ALCOHOLISM last drink was in mid-August, alcohol level normal no overt signs of withdrawal monitor closely ABNORMAL LIVER ULTRASOUND 1. Mild gallbladder distention is noted along with mild degree of layering sludge. No cholelithiasis or sonographic evidence of acute cholecystitis. 2. No biliary ductal dilation. 3. Increased echogenicity of the liver suggests hepatic steatosis. -- LFTs ok monitor as outpatient THROMBOCYTOPENIA likely from Sepsis, Alcoholism no signs of bleeding improving RIGHT SUBCONJUNCTIVAL HEMORRHAGE sustained after falling, during apparent seizure episode last month no vision problems, hemorrhage improving as per patient Improved today from 57-71 LEFT SHOULDER/ COLLAR BONE AREA PAIN Clavicle or shoulder xray: no fracture check Rib xray will consult Ortho Lidoderm patch, Flexeril PRN HYPOMAGNESEMIA likely from Alcoholism replace with PO and IV Mg DVT prophylaxis SCDs, early ambulation for now given thrombocytopenia Disposition patient declining Alcohol rehab discussed with patient in detail and at length all questions answered she is understanding, agreeable, and comfortable with plan of care Subjective ff up for pneumonia, acute renal failure seen resting in bed, comfortable, KARO King present during whole encounter states her cough continues to improve, no sputum anymore still has some chest pain when coughing no problems with urination still has persistent left collar bone/shoulder pain reports some pain on the left upper ribs as well no other symptoms Review of Systems 2 Review of Systems: All systems reviewed & are unremarkable except as noted in HPI & below Physical Exam Physical Exam: General- oriented x 3, not in distress, speaks in sentences with no effort or accessory muscle use Eyes- anicteric Neck- no JVD Lungs- mild rhonchi at the right base, no wheezing Heart- normal rate, regular rhythm; no murmurs Chest- no tenderness, edema, warmth on the left clavicle area Abdomen- normal bowel sounds, nondistended, soft, nontender Extremities- no pretibial edema, no calf tenderness Shoulder left: mild tenderness on the anterior region Neuro- alert, oriented x 3; no gross focal neurologic deficits Skin- warm & dry Results & Data Vital Signs (Past 12 Hours) Vital Signs Temp Pulse Resp BP Pulse Ox 09/29/19 13:25 120 H 18 95 09/29/19 12:00 36.8 C 16 118/80 90 09/29/19 07:28 92 H 16 92 09/29/19 06:49 37.0 C 87 16 123/83 90 Laboratory Results Laboratory Results - last 24 hr 09/29/19 09/29/19 09/29/19 06:44 06:44 06:44 WBC 22.39 H RBC 2.44 L Hgb 9.7 L Hct 27.8 L MCV 113.9 H MCH 39.8 H MCHC 34.9 RDW Std Deviation 58.3 H RDW Coeff of Vinod 14.0 Plt Count 147 MPV 12.4 H Neutrophils % (Manual) 75.8 Lymphocytes % (Manual) 7.8 Monocytes % (Manual) 4.3 Metamyelocytes % (Man) 5.2 Myelocytes % (Man) 6.9 Neutrophils # (Manual) 16.97 H Total Absolute Neuts 16.97 H Lymphocytes # (Manual) 1.75 Total Abs Lymphocytes 1.75 Monocytes # (Manual) 0.96 H Metamyelocytes # (Man) 1.16 H Myelocytes # (Manual) 1.54 H Sodium 132 L Potassium 3.9 Chloride 99 Carbon Dioxide 24 Anion Gap 9.0 BUN 12 D Creatinine 0.50 L D Est Cr Clr Drug Dosing 145.9 Est GFR ( Amer) > 150.0 Est GFR (Non-Af Amer) 132.6 BUN/Creatinine Ratio 23.2 H Glucose 83 Calcium 8.2 L Phosphorus 4.2 Magnesium 0.9 L* 09/29/19 13:52 WBC RBC Hgb Hct MCV MCH MCHC RDW Std Deviation RDW Coeff of Vinod Plt Count MPV Neutrophils % (Manual) Lymphocytes % (Manual) Monocytes % (Manual) Metamyelocytes % (Man) Myelocytes % (Man) Neutrophils # (Manual) Total Absolute Neuts Lymphocytes # (Manual) Total Abs Lymphocytes Monocytes # (Manual) Metamyelocytes # (Man) Myelocytes # (Manual) Sodium Potassium Chloride Carbon Dioxide Anion Gap BUN Creatinine Est Cr Clr Drug Dosing Est GFR ( Amer) Est GFR (Non-Af Amer) BUN/Creatinine Ratio Glucose Calcium Phosphorus Magnesium 1.5 L
--- NOTE | 2019-09-29 16:13 | XRay Report ---
XR ribs LT min 3V w CXR1V CLINICAL HISTORY: UPPER RIB PAIN, R/O FRACTURE COMPARISON STUDY: Chest 09/25/2019. FINDINGS: No pneumothorax. Progressive consolidation and suspected increase in size in the right pleu ral effusion. This results in near complete opacification right hemithorax. The left lung remains garry ar. The heart is normal in size. No pneumothorax. Healed right lateral 10th rib fracture. No left rib fractures. IMPRESSION: 1. No left rib fractures. No pneumothorax. 2. Progressive opacification within the right hemithorax likely representing a combination of the pne umonia and effusion. Electronically signed by: Dong Silveira M.D. 09/29/2019 4:12 PM
[2019-09-29] MEDS: CYCLOBENZAPRINE HCL 5 MG TAB PO PRN (21:57)
[2019-09-30] MEDS: OXYCODONE HCL IR 5 MG TAB (IMMEDIATE RELEASE) PO PRN ×4 (00:41→23:49)
[2019-09-30] MEDS: IPRATROPIUM BROMIDE NEB SOLN 0.02% 2.5 ML VIAL INH SCH ×4 (01:08→19:15)
[2019-09-30] MEDS: LEVALBUTEROL HCL 0.63 MG/3 ML NEB NEB SCH ×4 (01:08→19:15)
[2019-09-30] MEDS ORDERED: SODIUM CHLORIDE 0.9% 1000ML 1,000 ML IV ONE (02:14)
[2019-09-30] MEDS ORDERED: POTASSIUM CHLORIDE 20 MEQ TABCR PO STA (02:15)
[2019-09-30] MEDS ORDERED: LACTATED RINGER'S 1,000 ML IV ONE ×2 (02:16→23:11)
[2019-09-30 03:24] LABS: BUN Creatinine Ratio 11.6 (10-20); Blood Urea Nitrogen 5 mg/dl (7-18); Calcium 8.1 mg/dl (8.5-10.1); Carbon Dioxide 24 mmol/L (21-32); Chloride 98 mmol/L (98-107); Creatinine Clr Calc Pharmacy 155.3 ml/min; Est GFR (African American) > 150.0; Est GFR (Non-African American) 135.4; Glucose 90 mg/dl (70-99); Magnesium 1.2 mg/dl (1.8-2.4); Sodium 130 mmol/L (136-145)
[2019-09-30] MEDS: MAGNESIUM SULFATE / D5W 1 GM/100 ML BAG IV SCH ×4 (03:26→07:14)
[2019-09-30 04:00] LABS: Hematocrit (blood only) 29.7 % (37-47); Hemoglobin 10.4 g/dL (12.0-16.0); Mean Corpuscular Hemoglobin 39.7 pg (25-34); Mean Corpuscular Volume 113.4 fL (80-100); Platelet Count 230 K/uL (130-400); Red Blood Count 2.62 M/uL (4.2-5.4); White Blood Count 30.73 K/uL (4.8-10.8)
[2019-09-30 04:03] LABS: Basophils # (auto) 0.03 K/uL (0-0.2); Basophils % (auto) 0.1 %; Eosinophils # (auto) 0.01 K/uL (0-0.5); Immature Granulocytes # (auto) 1.71 K/uL (0.00-0.02); Immature Granulocytes % (auto) 5.6 %; Lymphocytes # (auto) 1.36 K/uL (1.2-3.4); Lymphocytes % (auto) 4.4 %; Macrocytosis Present; Monocytes # (auto) 1.66 K/uL (0.11-0.59); Monocytes % (auto) 5.4 %; Neutrophils # (auto) 25.96 K/uL (1.4-6.5); Neutrophils % (auto) 84.5 %; Toxic Granulation Occasional; Toxic Vacuolation Occasional
[2019-09-30] MEDS ORDERED: NSS + 20MEQ KCL 20 MEQ/1,000 ML BAG IV ONE (04:15)
[2019-09-30] MEDS: ACETAMINOPHEN 325 MG TAB PO PRN ×3 (04:37→20:55)
--- NOTE | 2019-09-30 04:47 | Communication Note ---
Date of Service: September 30, 2019 Made aware by RN of tachycardia 140s, low-grade fever WBC 30 CT chest initial read : large loculated moderate right pleural effusion. Right upper lobe demonstrating heterogeneous hypoenhancement with multiple foci of gas measuring 6 by 7 x 9 cm concerning for necrotizing pneumonia. Developing lung abscess cannot be excluded. AP Secondary to complicated pneumonia possible lung abscess Cultures, check lactic acid IVF Zosyn, vancomycin for now in place of Ceftriaxone Pulmonary consult Re: Complicated pneumonia Will relay to AM provider.
[2019-09-30] MEDS ORDERED: IOVERSOL 100ml IV PRN (04:50)
[2019-09-30] MEDS ORDERED: PIPERACILL/TAZOBAC CONSULT ACTIVE PRN (05:03)
[2019-09-30] MEDS ORDERED: VANCOMYCIN CONSULT ACTIVE PRN (06:00)
[2019-09-30] MEDS ORDERED: PIPERACILLIN/TAZOBACTAM 4.5 GM in DEXTROSE 5% 100 ML IV SCH (06:00)
[2019-09-30] MEDS ORDERED: VANCOMYCIN HCL 1,500 MG in SODIUM CHLORIDE 0.9% 500 ML IV ONE (06:15)
--- NOTE | 2019-09-30 07:10 | CT Scan Report ---
CT OF THE CHEST WITH IV CONTRAST CLINICAL HISTORY: Sepsis. Bacteremia. COMPARISON STUDY: Chest CT September 26, 2019. TECHNIQUE: Following IV administration of 92 mL of Optiray-320, helical axial images of the chest we re obtained. Sagittal and coronal reconstructions were viewed as well as maximal intensity projectio ns on an independent 3-D workstation. Automated exposure control was utilized for the study. A dose lowering technique was utilized adhering to the principles of ALARA. FINDINGS: The size of the heart is normal. There is no pericardial effusion. A large loculated right pleural effusion has increased in size since CT of September 26, 2019. Extensive consolidation within the right upper lobe has increased since exam of September 26, 2019. Right lower lobe and right middle lobe opacity is also present. Multiple hypoenhancing foci within the right lung are noted with foci o f cavitation. No well-defined fluid collection is identified. There are are mild age indeterminate co mpression deformities of the superior endplate of T5, T10 and T11. Mildly enlarged right paratracheal lymph nodes are likely reactive. CT of the abdomen and pelvis will be reported separate. Fatty infil tration of the liver is noted. IMPRESSION: 1. Increase in extent of extensive right upper and right middle lobe airspace opacity since CT of Sep with interval cavitation and hypoenhancing foci. The findings suggest necrotizing pneum onia with cavitation. No well-defined rim-enhancing fluid collection however developing pulmonary abs cesses cannot be excluded. 2. Increase in size of a loculated right pleural effusion which raises the possibility of an empyema. Increasing right lower lobe opacity which favors compressive atelectasis. 3. Age indeterminate mild compression deformities of the superior endplate of T5, T10 and T11. Electronically signed by: Harrison Manning M.D. 09/30/2019 7:09 AM
--- NOTE | 2019-09-30 07:18 | Orthopedic Consultation ---
Date of Consultation September 30, 2019 Assessment & Plan (1) Left shoulder pain: Acute atraumatic left shoulder pain. No obvious injury. Likely muscular in origin or secondary to referred pain not related to the shoulder. Recommend Lidoderm patches, weight-bear as tolerated, PT/OT, if symptoms persist MRI of the left shoulder. Thank you for the consultation. History of Present Illness Reason for Consultation: Left shoulder pain Attending Physician: Ganga Rodriguez MD History of Present Illness The patient is a 29-year-old female who presented to [facility] secondary to sepsis and aspiration pneumonia of the right lung. Complaining of 4-day history of atraumatic acute onset left shoulder pain. She reports this began when she was admitted to the hospital. Denies any previous trauma or surgery to the left shoulder. She complains of global pain to the left shoulder with activity overlying the left chest shoulder and clavicle.. Denies any numbness and tingling to the left upper extremity. We were asked to evaluate her for her left shoulder pain. Allergies Allergy/AdvReac Type Severity Reaction Status Date / Time No Known Allergies Allergy Unverified 09/25/19 23:37 Home Medications Home Medications Medication Instructions Recorded Confirmed Type fluoxetine [Prozac] 60 mg PO DAILY 11/03/18 09/25/19 History aripiprazole [Abilify] 5 mg PO DAILY 09/25/19 09/25/19 History Patient History Medical History Admitted to intensive care unit Alcohol withdrawal Alcohol withdrawal seizure (Inactive) Alcoholism Depression Elevated LFTs Hypophosphatemia Sepsis (Inactive) Severe sepsis Thrombocytopenia (Inactive) Tobacco use Surgical History No pertinent past surgical history Family History Mother Diabetes Social History Preferred Language: Citizen Of [place] Communication Ability: Effective Visual Impairment: Partially Limited Fitness Floor Attendant Required: No Beliefs That Will Affect Care: None marital status: Single marital status details: Boyfriend Current Living Situation: Parent Current Living Situation Comment: father Feels Safe at Home: Yes Smoking Status: Current every day smoker Tobacco Type: cigarettes ; Cigarettes Per Day: 10 ; Second Hand Exposure: Yes ; Tobacco Cessation Education Requested by Patient: No Hx Alcohol Use: Yes Alcohol type: beer and hard liquor Alcohol Intake Frequency Comment: 6-7 daily Hx Substance Use: No Review of Systems Review of Systems: All systems reviewed & are unremarkable except as noted in HPI & below Constitutional: as per Subjective / HPI Physical Exam Physical Exam: Left upper extremity neurovascular sensory intact, +2 radial pulse, compartment soft nontender, no erythema edema, limited range of motion of the shoulder, active range of motion degrees of abduction and forward flexion, 55 degrees of external rotation, passive range of motion 150 degrees of abduction and forward flexion with pain. No significant tenderness to palpation overlying glenohumeral joint or before meals and SC joints. Constitutional: WD/WN, vitals as above Results & Data Vital Signs (Past 12 Hours) Vital Signs Temp Pulse Pulse Resp BP Pulse Ox 09/30/19 04:00 37.6 C H 112 H 18 116/75 09/30/19 02:26 37.5 C 120 H 20 116/69 09/30/19 01:08 106 H 16 92 09/30/19 00:04 117 H 09/29/19 22:51 36.9 C 79 21 118/82 90 09/29/19 19:51 107 H 16 93 09/29/19 19:28 37.3 C 102 H 21 109/73 97 Diagnostic Findings LEFT SHOULDER 3 VIEWS, LEFT CLAVICLE 2 VIEWS HISTORY: Left shoulder and clavicle pain. pain, r/o fracture COMPARISON: None. FINDINGS: No fracture or dislocation within the left shoulder. The left clavicle is intact. Cartilage spaces are maintained. Soft tissues are unremarkable. No radiopaque foreign bodies. IMPRESSION: Unremarkable left shoulder or left clavicle. LEFT SHOULDER 3 VIEWS, LEFT CLAVICLE 2 VIEWS HISTORY: Left shoulder and clavicle pain. pain, r/o fracture COMPARISON: None. FINDINGS: No fracture or dislocation within the left shoulder. The left clavicle is intact. Cartilage spaces are maintained. Soft tissues are unremarkable. No radiopaque foreign bodies.
--- NOTE | 2019-09-30 07:45 | CT Scan Report ---
CT shoulder LT w con CLINICAL HISTORY: 29 years-old Female presenting with L shoulder pain, sepsis. TECHNIQUE: Multidetector CT of the left shoulder was performed after the administration of intravenou s contrast. IV contrast: 92 mL of Optiray 320. One or more dose lowering techniques were used consist ent with the principles of ALARA (as low as reasonably achievable), including automatic exposure cont rol, mA or kV adjustment to individual patient size, and/or use of iterative reconstruction. COMPARISON: Plain radiograph from 09/27/2019. CT DOSE (mGy.cm): The estimated cumulative dose is 664.03 mGy.cm. 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 Glenohumeral and acromioclavicular joints congruent. There is no gross evidence of a shoulder joint e ffusion. No muscle swelling or intramuscular collection. No interfascial edema. No subcutaneous edema . No fracture. No osseous erosion or periosteal reaction. Visualized portion of the left ribs intact. Visualized portion of the thoracic spine is normal allowing for sensitivity of CT. Partially visualized right lung consolidation and extensive pleural effusion. The left lung is grossl y clear. IMPRESSION: 1. No acute osseous injury or CT evidence of osteomyelitis/septic arthritis of the left shoulder. 2. No abscess. 3. Persistent visualized right lung pneumonia and parapneumonic effusion. Electronically signed by: Roman Simmons M.D. 09/30/2019 7:44 AM
--- NOTE | 2019-09-30 07:53 | CT Scan Report ---
CT abd pelvis IV con only CLINICAL HISTORY: 29 years-old Female presenting with sepsis, hx bacteremia. TECHNIQUE: Multidetector CT of the abdomen and pelvis was performed after the administration of intra venous contrast. IV contrast: 92 mL of Optiray 320. One or more dose lowering techniques were used co nsistent with the principles of ALARA (as low as reasonably achievable), including automatic exposure control, mA or kV adjustment to individual patient size, and/or use of iterative reconstruction. COMPARISON: None. CT DOSE (mGy.cm): The estimated cumulative dose is 664.03. 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 Lung bases: Normal heart size. Large right pleural effusion. There may be mild right pleural enhancem ent. Extensive right lung consolidation and volume loss. The left lung is essentially clear. Liver: Normal morphology. Density suggestive of hepatic steatosis. No focal lesion. Vague hypoattenua tion along the fissure for the ligamentum teres likely perfusional variation or more concentrated foc al fat. Patent hepatic vasculature. Biliary: No intrahepatic or extrahepatic biliary ductal dilatation. Gallbladder contains gallstones. Pancreas: Normal. Spleen: Normal. Adrenal glands: Normal. Kidneys and ureters: Perinephric fat infiltration/fluid slightly asymmetrically greater on the left. Normal renal parenchymal enhancement. No nephrolithiasis or hydronephrosis. Ureters nondistended. Bladder: Incompletely evaluated secondary to underdistention. Pelvic organs: Uterus and ovaries normal. An intravaginal contraceptive device is in place. Bowel: Fluid noted throughout the colon, which suggests a diarrheal state. Luminal narrowing of the p roximal transverse colon likely relates to peristalsis. The appendix is normal. No bowel obstruction. Peritoneal cavity: No free fluid or intraperitoneal gas. Lymph nodes: No enlarged lymph nodes in the abdomen or pelvis. Vasculature: Aorta and IVC patent and normal in caliber. Abdominal wall: Minimal subcutaneous edema evident likely relating to volume status.. Musculoskeletal: Normal. IMPRESSION: 1. Fluid in the colon suggests a diarrheal state. No other evidence to suggest colitis. 2. Right lung consolidation with an associated effusion. There is known underlying pneumonia. Trace pleural enhancement in the setting of the parapneumonic effusion. Developing empyema is not excluded. 3. Hepatic steatosis. 4. Cholelithiasis. Electronically signed by: Roman Simmons M.D. 09/30/2019 7:52 AM
--- NOTE | 2019-09-30 08:04 | Pharmacy Report ---
Pharmacy Abx Initial Consult - Date of Service September 30, 2019 - Pharmacy Dosing Scope Date of Consult: 09/30/19 Consultation requested by: Dr. Moser Pharmacy is consulted to initiate vancomycin and Zosyn IV dosing therapy, order appropriate labs and adjust drug dose/frequency. - Subjective The patient is a 29 year old F admitted on 09/26/19 01:26 with pneumonia. Subsequently has been diagnosed with Strep pneumoniae bacteremia and pneumonia. Was previously on Zosyn; transitioned to Rocephin on 09/27/19. Patient has history of seizures with alcohol withdrawal this year. Admitted with BENJAMIN secondary to bacteremia and NSAID use. Kidney function returned to normal. - Objective Height: 5 ft 4 in Weight: 60.2 kg Vital Signs (Past 12hrs): Vital Signs Temp Pulse Pulse Resp BP Pulse Ox 09/30/19 07:23 36.8 C 115 H 16 113/72 91 09/30/19 04:00 37.6 C H 112 H 18 116/75 09/30/19 02:26 37.5 C 120 H 20 116/69 09/30/19 01:08 106 H 16 92 09/30/19 00:04 117 H 09/29/19 22:51 36.9 C 79 21 118/82 90 Lab Results (24hrs): Laboratory Tests (24 Hours) 09/30/19 09/30/19 09/29/19 02:26 02:26 06:44 WBC 30.73 H* Neut # (Auto) 25.96 H Creatinine 0.47 L 0.50 L D Est Cr Clr Drug Dosing 155.3 145.9 Micro Results: 09/30/19 02:26 Aerobic Blood Culture - Pending Blood Anaerobic Blood Culture - Pending 09/30/19 02:26 Aerobic Blood Culture - Pending Blood Anaerobic Blood Culture - Pending 09/26/19 09:15 Gram Stain - Final Sputum, Expectorated Sputum Culture - Final Streptococcus pneumoniae 09/26/19 00:14 Aerobic Blood Culture - Final Blood Streptococcus pneumoniae Anaerobic Blood Culture - Final Streptococcus pneumoniae 09/25/19 23:40 Aerobic Blood Culture - Final Blood Streptococcus pneumoniae Anaerobic Blood Culture - Final Streptococcus pneumoniae 09/25/19 21:10 Urine Culture - Final Urine,Clean Catch Lactobacillus species - Risk Factors for Resistance * Current hospitalization > 5 days - Assessment & Plan Assessment 29 year old F with worsening laboratory results while receiving treatment for bacteremia. Plan vancomycin and Zosyn for treatment of worsening pneumonia Vancomycin IV * Patient meets criteria for vancomycin AUC dosing nomogram * AUC/OSCAR is the preferred PK/PD target for vancomycin * Target AUC/OSCAR = 400-600 * AUC guided dosing is effective and associated with decreased risk of nephrotoxicity * Trough levels poorly correlate with AUC/OSCAR and trough monitoring has been associated with increased risk of nephrotoxicity. Per policy will obtain trough prior to 0600 dose on 10/02/19 Piperacillin/tazobactam * 4.5 g bolus administered over 30 minutes, then 3.375 g IV extended infusion every 8 hours for CrCl greater than 20 mL/min * More aggressive dosing not chosen due to history of BENJAMIN and seizures. Pharmacy will continue to follow and will adjust dose/frequency as necessary. Thank you.
[2019-09-30] MEDS: MAGNESIUM CHLORIDE 64MG DELAYED REL TAB PO SCH ×2 (08:14→20:38)
[2019-09-30] MEDS: LIDOCAINE 5% 1 PATCH TD SCH ×2 (08:15→09:48)
[2019-09-30] MEDS: FLUOXETINE HCL 20 MG CAP PO SCH (08:15)
[2019-09-30] MEDS: ARIPiprazole 5 MG TAB PO SCH (08:15)
[2019-09-30] MEDS: NICOTINE 14 MG/24 HR PATCH TD SCH (08:16)
--- NOTE | 2019-09-30 09:21 | Pulmonary Consultation ---
Date of Consultation September 30, 2019 Assessment & Plan (1) Pneumonia: Patient was consolidated pneumonia on the right with associated pleural effusion This point patient still oxygenating well but will need a chest tube versus thoracentesis to drain and evaluate fluid I suspect this is probably a parapneumonic effusion versus empyema Patient is currently on Zosyn and vancomycin I discussed the case with Dr. Mora from infectious disease who agrees with the antibiotic choices for now We will further evaluate once chest tube is placed later this morning. Laterality: right Lung location: upper lobe of lung Pneumonia type: due to unspecified organism Qualified Code(s): J18.9 - Pneumonia, unspecified organism (2) Pleural effusion on right: Parapneumonic effusion versus empyema Large pneumonia on the right Will need thoracentesis versus chest tube We will plan on that later this morning (3) Hypomagnesemia: Received 2 g of magnesium sulfate overnight Check repeat magnesium level Continue to replete Potassium levels 4.0 Follow serial labs (4) Pneumococcal sepsis: Bacteremia Continue IV antibiotics with Zosyn and vancomycin ID is consulted and following -appreciate Dr. Mora's input Lactic acid is normalized No indication of sepsis at this time Continue to treat infection (5) Gram-positive bacteremia: As above Blood cultures positive x2 Thank you for including us in the care of this patient Please refer to Dr. Miller's addendum for further recommendations. We will continue to follow this patient Supervising Physician Co-Signing Physician Notes Patient seen and examined with Alejandro Cruz PA-C. We will place a chest tube for likely parapneumonic effusion/empyema. He also appears that she has some degree of lung entrapment potentially on the CT chest with possible evidence of pulmonary abscess. Recommend continuing vancomycin and Zosyn. If there is ev idence of empyema on the pleural fluid we will perform mist 2 protocol lytics. History of Present Illness Attending Physician: Ganga Rodriguez MD History of Present Illness Attending: Dr. Miller This is a 29-year-old female with a history of seizure, tobacco abuse, ethanol abuse, and depression. The patient states that she quit drinking ethanol in the middle of August. She then had what she refers to is a seizure which is suspected to be ethanol withdrawal. She fell and hit her head and developed ecchymosis around the left eye. She also had what appeared to be aspiration pneumonia. She was admitted to [facility] on 09/26/2019 and started on antibiotics for her pneumonia. Blood cultures then grew streptococcal pneumoniae x2. She was showing generalized improvement but over the last several days had more pain and yesterday a CT scan was repeated and shows a large right pleural effusion with dense consolidation. Patient now reports pain with any kind of deep breathing. The pain is generalized along her back and up into her right apical region. She has no sputum production or significant cough. She denies any hemoptysis. She denies any fever or chills. She does have pain to her left shoulder which is been treated with Lidoderm. There is also a Lidoderm patch across her right scapula. She has no lightheadedness or dizziness. She has no awareness of tachyarrhythmia. She denies any awareness of aspiration. She is moving about on her own and denies any difficulty with balance, falls, new chest pain. The patient previously lives in [facility]. She currently lives with her father in [place]. She continues to smoke cigarettes but denies any other illicit use of drugs or alcohol. Allergies Allergy/AdvReac Type Severity Reaction Status Date / Time No Known Allergies Allergy Unverified 09/25/19 23:37 Home Medications Home Medications Medication Instructions Recorded Confirmed Type fluoxetine [Prozac] 60 mg PO DAILY 11/03/18 09/25/19 History aripiprazole [Abilify] 5 mg PO DAILY 09/25/19 09/25/19 History Patient History Medical History Admitted to intensive care unit Alcohol withdrawal Alcohol withdrawal seizure (Inactive) Alcoholism Depression Elevated LFTs Hypophosphatemia Sepsis (Inactive) Severe sepsis Thrombocytopenia (Inactive) Tobacco use Surgical History No pertinent past surgical history Family History Mother Diabetes Social History Preferred Language: Croatian Communication Ability: Effective Visual Impairment: Partially Limited Energy Analyst Required: No Beliefs That Will Affect Care: None marital status: Single marital status details: Boyfriend Current Living Situation: Parent Current Living Situation Comment: father Feels Safe at Home: Yes Smoking Status: Current every day smoker Tobacco Type: cigarettes ; Cigarettes Per Day: 10 ; Second Hand Exposure: Yes ; Tobacco Cessation Education Requested by Patient: No Hx Alcohol Use: Yes Alcohol type: beer and hard liquor Alcohol Intake Frequency Comment: 6-7 daily Hx Substance Use: No Review of Systems Review of Systems: All systems reviewed & are unremarkable except as noted in HPI & below Physical Exam Physical Exam: GENERAL : Moderate distress with occasional grimacing from pain EYES: No icterus, gaze conjugate. Ecchymosis of the right eye. Conjunctival hemorrhage of the left eye NOSE: No evidence of epistaxis. MOUTH: No lesions or candidiasis. Mucosa moist. Tongue midline NECK: Supple. No appreciation of stridor LUNGS: Generally clear to auscultation. No bronchospasm. Decreased breath sounds on the right base. Good breath sounds at the bilateral apices. HEART: Regular, tachycardic around 100 bpm ABDOMEN: Soft, NT, ND, BS Present EXTREMITIES: No LE edema, pedal pulses intact NEURO: A&OX3 Results & Data Vital Signs (Past 12 Hours) Vital Signs Temp Pulse Pulse Resp BP Pulse Ox 09/30/19 07:23 36.8 C 115 H 16 113/72 91 09/30/19 07:20 116 H 16 91 09/30/19 04:00 37.6 C H 112 H 18 116/75 09/30/19 02:26 37.5 C 120 H 20 116/69 09/30/19 01:08 106 H 16 92 09/30/19 00:04 117 H 09/29/19 22:51 36.9 C 79 21 118/82 90 Laboratory Results 09/30/19 02:26 09/30/19 02:26 PT/INR pending PTT pending Repeat LFTs pending Repeat magnesium pending Procalcitonin pending Diagnostic Findings CT OF THE CHEST WITH IV CONTRAST CLINICAL HISTORY: Sepsis. Bacteremia. COMPARISON STUDY: Chest CT September 26, 2019. TECHNIQUE: Following IV administration of 92 mL of Optiray-320, helical axial images of the chest were obtained. Sagittal and coronal reconstructions were vi ewed as well as maximal intensity projections on an independent 3-D workstation. Automated exposure control was utilized for the study. A dose lowering technique was utilized adhering to the principles of ALARA. FINDINGS: The size of the heart is normal. There is no pericardial effusion. A large loculated right pleural effusion has increased in size since CT of September 26, 2019. Extensive consolidation within the right upper lobe has increased since exam of September 26, 2019. Right lower lobe and right middle lobe opacity is also present. Multiple hypoenhancing foci within the right lung are noted with foci of cavitation. No well-defined fluid collection is identified. There are are mild age indeterminate compression deformities of the superior endplate of T5, T10 and T11. Mildly enlarged right paratracheal lymph nodes are likely reactive. CT of the abdomen and pelvis will be reported separate. Fatty infiltration of the liver is noted. IMPRESSION: 1. Increase in extent of extensive right upper and right middle lobe airspace opacity since CT of September 26, 2019 with interval cavitation and hypoenhancing foci. The findings suggest necrotizing pneumonia with cavitation. No well- defined rim-enhancing fluid collection however developing pulmonary abscesses cannot be excluded. 2. Increase in size of a loculated right pleural effusion which raises the possibility of an empyema. Increasing right lower lobe opacity which favors compressive atelectasis. 3. Age indeterminate mild compression deformities of the superior endplate of T5, T10 and T11. Electronically signed by: Harrison Manning M.D. 09/30/2019 7:09 AM PG Care Time/CCT Total # of Minutes Spent Total Time Spent with Patient: Total time spent is greater than 50% in coordination of care (as documented) at patient's floor/unit and/or counseling patient: 65
--- NOTE | 2019-09-30 09:24 | Hospitalist Progress Note ---
Date of Service Delayed entry date of service noted below September 30, 2019 Assessment & Plan (1) Severe sepsis: (1) Severe sepsis: SEVERE SEPSIS SECONDARY TO PNEUMONIA- POSSIBLE COMMUNITY ACQUIRED, ASPIRATION FROM EMESIS Strep BACTEREMIA Blood cultures: (+) for strep pneumonia Urine culture: Negative Sputum culture: Moderate normal arlet CT chest: RUL pneumonia, no abscess Repeat CT chest 09/30/2019: 1. Interval insertion of a right-sided pleural pigtail catheter. The pigtail is not fully within the pleural space as it surrounds the right ribs. The proximal sidehole is extrathoracic. 2. Small amount of subcutaneous emphysema on the right 3. A moderate loculated right pleural effusion persists 4. Persistent extensive right lung consolidation 5. Small left pleural effusion In light of possible empyema, ceftriaxone changed to vancomycin plus Zosyn Pulmonary consulted, pigtail chest tube placed Thoracic surgery consulted, plan for thoracoscopic evacuation of empyema ACUTE RENAL FAILURE likely Prerenal, ATN from Sepsis Nephro consulted Renal US: no obstruction Crea back to baseline LR discontinued HYPONATREMIA appropriately corrected HYPOKALEMIA likely from emesis, poor intake Replaced SEIZURE EPISODES happened mid-August after patient abstained from alcohol Neurologist consulted, EEG performed Likely secondary to withdrawal seizures HISTORY OF ALCOHOLISM last drink was in mid-August, alcohol level normal no overt signs of withdrawal monitor closely ABNORMAL LIVER ULTRASOUND 1. Mild gallbladder distention is noted along with mild degree of layering sludge. No cholelithiasis or sonographic evidence of acute cholecystitis. 2. No biliary ductal dilation. 3. Increased echogenicity of the liver suggests hepatic steatosis. -- LFTs ok monitor as outpatient THROMBOCYTOPENIA likely from Sepsis, Alcoholism no signs of bleeding improving RIGHT SUBCONJUNCTIVAL HEMORRHAGE sustained after falling, during apparent seizure episode last month no vision problems, hemorrhage improving as per patient Improved today from 57-71 LEFT SHOULDER/ COLLAR BONE AREA PAIN Clavicle or shoulder xray: no fracture Rib xray no acute fractures CT shoulder: No fracture will consult Ortho Lidoderm patch, Flexeril PRN HYPOMAGNESEMIA likely from Alcoholism replace with PO and IV Mg DVT prophylaxis SCDs, early ambulation for now in light of procedures-evaluate, discussed with surgeon Disposition patient declining Alcohol rehab discussed with patient in detail and at length all questions answered she is understanding, agreeable, and comfortable with plan of care Subjective Follow-up for pneumonia, possible empyema Events overnight noted Seen with RN at the bedside throughout whole encounter States she feels about the same as yesterday Denies active shortness of breath, still has some pain on the right side of the chest with coughing Coughing less, less sputum No problems with urination No other symptoms Review of Systems Review of Systems: All systems reviewed & are unremarkable except as noted in HPI & below Physical Exam Physical Exam: General- oriented x 3, not in distress, speaks in sentences with no effort or accessory muscle use Eyes- anicteric Neck- no JVD Lungs-mild rhonchi at the right mid to base, no wheezing, good air entry bilaterally Heart- normal rate, regular rhythm; no murmurs Abdomen- normal bowel sounds, nondistended, soft, nontender Extremities- no pretibial edema, no calf tenderness Neuro- alert, oriented x 3; no gross focal neurologic deficits Skin- warm & dry Results & Data Vital Signs (Past 12 Hours) Vital Signs Temp Pulse Pulse Resp BP Pulse Ox 09/30/19 07:23 36.8 C 115 H 16 113/72 91 09/30/19 07:20 116 H 16 91 09/30/19 04:00 37.6 C H 112 H 18 116/75 09/30/19 02:26 37.5 C 120 H 20 116/69 09/30/19 01:08 106 H 16 92 09/30/19 00:04 117 H 09/29/19 22:51 36.9 C 79 21 118/82 90
[2019-09-30 09:46] LABS: Partial Thromboplastin Ratio 0.9; Partial Thromboplastin Time 24.2 Seconds (21.0-31.0); Prothrombin Time 10.7 Seconds (9.0-12.0)
[2019-09-30 09:53] LABS: Albumin Level 1.4 gm/dl (3.4-5.0); Bilirubin Direct 0.6 mg/dl (0-0.2); Bilirubin,Total 0.9 mg/dl (0.2-1); Magnesium 2.4 mg/dl (1.8-2.4); Total Protein 5.8 gm/dl (6.4-8.2)
--- NOTE | 2019-09-30 11:02 | Infectious Disease Progress Nt ---
Date of Service September 30, 2019 Assessment & Plan (1) Pneumococcal sepsis: will change to unasyn, await findings at chest tube placement, please send culture. follow repeat blood cultures, negative to date. will require prolonged course of treatment. (2) Pneumonia: Subjective pt with increased right sides chest pain, repeat ct done over weekend, increased size of effusion, likely empyema, extensive RUL opacity with cavitiation. remains on zosyn and vanco, tolerating well. spoke with pulm for Chest tube today. tmax 37.6. sputum and initial blood cultures growing pansensitive S. pneumo. repeat blood cultures negative. wbc increased to 30 today. no abd pain, no n/v/d. pleuritic chest pain noted, states she feels sob but is comfortable on RA. Review of Systems Review of Systems: All systems reviewed & are unremarkable except as noted in HPI & below Physical Exam Constitutional: WD/WN, vitals as above Eyes: PERRL, conjunctivae normal, anicteric sclerae ENMT: external ear and nose normal, oropharynx normal Neck: normal visual inspection Respiratory: Auscultation: + diminished lung sounds and + rhonchi Cardiovascular: RRR, no murmur, no edema Gastrointestinal (Abdomen): normal bowel sounds, soft, nontender, no hepatosplenomegaly Musculoskeletal: no cyanosis or clubbing, extremities motor strength 5/5 Skin: no rashes, warm and dry Psychiatric: A+Ox3, euthymic affect Results & Data Vital Signs (Past 12 Hours) Vital Signs Temp Pulse Pulse Resp BP Pulse Ox 09/30/19 07:23 36.8 C 115 H 16 113/72 91 09/30/19 07:20 116 H 16 91 09/30/19 04:00 37.6 C H 112 H 18 116/75 09/30/19 02:26 37.5 C 120 H 20 116/69 09/30/19 01:08 106 H 16 92 09/30/19 00:04 117 H Laboratory Results Microbiology 09/26/19 09:15 Sputum, Expectorated Gram Stain - Final 09/26/19 09:15 Sputum, Expectorated Sputum Culture - Final Streptococcus pneumoniae 09/26/19 00:14 Blood Aerobic Blood Culture - Final Streptococcus pneumoniae 09/26/19 00:14 Blood Anaerobic Blood Culture - Final Streptococcus pneumoniae 09/25/19 23:40 Blood Aerobic Blood Culture - Final Streptococcus pneumoniae 09/25/19 23:40 Blood Anaerobic Blood Culture - Final Streptococcus pneumoniae 09/25/19 21:10 Urine,Clean Catch Urine Culture - Final Lactobacillus species PG Care Time/CCT Total # of Minutes Spent Total Time Spent with Patient: Total time spent is greater than 50% in coordination of care (as documented) at patient's floor/unit and/or counseling patient: (1) Pneumonia Laterality: right Lung location: upper lobe of lung Pneumonia type: due to unspecified organism Qualified Code(s): J18.9 - Pneumonia, unspecified organism
--- NOTE | 2019-09-30 12:08 | Nephrology Progress Note ---
Date of Service September 30, 2019 Assessment & Plan (1) BENJAMIN (acute kidney injury): nonoliguric acute kidney injury due to ischemic ATN in setting of sepsis and NSAID use. Creatinine is better today at 0.4. Urinalysis showed granular casts. Ultrasound shows no hydronephrosis. -Monitor input output. -Monitor renal function with BMP daily. -I emphasized the need to avoid NSAIDs completely even after discharge -Stop fluids -Agree with current magnesium supplementation. f/u on recent phosphorus as well. (2) Gram-positive bacteremia: Patient with gram-positive bacteremia in setting of empyema, asp PNA. abtx per inf dzs and primary service. Renally dose antibiotics for GFR less than 15 mL/min (3) Acute hyponatremia: Patient with acute hyponatremia likely due to hypovolemic hyponatremia. Sodium plateau'd at 130 this morning. Monitor sodium daily (4) Hypokalemia: Patient with hypokalemia due to vomiting. Monitor and replace as needed. ok today Subjective c/o ongoing pleuritic CP >> chest CT w/ increased size of pl effusion; no n/v, no abd pain or edema. Review of Systems Review of Systems: All systems reviewed & are unremarkable except as noted in HPI & below Physical Exam Constitutional: well developed and well nourished; no acute distress on RA Eyes: EOM intact bilaterally ENMT: Ears: no external ear abnormality Nose: no external nose abnormality Mouth: + dry oral mucous membranes Neck: no nuchal rigidity Respiratory: normal respiratory effort; no respiratory distress and not tachypneic Auscultation: + diminished lung sounds Cardiovascular: Rate/Rhythm: regular rhythm and + tachycardic Extremities: no edema Gastrointestinal (Abdomen): Inspection/Auscultation: normal bowel sounds Percussion/Palpation: abdomen soft; abdomen nontender Musculoskeletal: Extremities: strength 5/5 throughout Skin: no rashes, warm and dry Trauma: + periorbital ecchymosis Neurologic: denson, fluent speech, no tremor Psychiatric: Orientation: alert and oriented x 3 Eye Contact: good eye contact Affect: + anxious affect Results & Data Vital Signs (Past 12 Hours) Vital Signs Temp Pulse Pulse Resp BP BP Pulse Ox 09/30/19 11:23 37.5 C 108 H 16 114/70 91 09/30/19 07:23 36.8 C 115 H 16 113/72 91 09/30/19 07:20 116 H 16 91 09/30/19 04:00 37.6 C H 112 H 18 116/75 09/30/19 02:26 37.5 C 120 H 20 116/69 09/30/19 01:08 106 H 16 92 09/30/19 00:04 117 H Laboratory Results 09/30/19 02:26 09/30/19 02:26
[2019-09-30 14:12] LABS: Bilirubin,Total 0.8 mg/dl (0.2-1); Total Protein 5.7 gm/dl (6.4-8.2)
[2019-09-30] MEDS ORDERED: LIDOCAINE HCL 1% 20 ML VIAL ONE (14:23)
[2019-09-30] MEDS: PIPERACILLIN/TAZOBACTAM 3.375 GM in DEXTROSE 5% 100 ML IV SCH ×2 (14:32→21:01)
[2019-09-30] MEDS: VANCOMYCIN HCL 1,000 MG in SODIUM CHLORIDE 0.9% 250 ML IV SCH ×2 (14:32→21:00)
[2019-09-30] MEDS ORDERED: MoRPHine SULFATE 2 MG/ML CARP IV STA (15:15)
--- NOTE | 2019-09-30 15:45 | XRay Report ---
XR chest 1V portable CLINICAL HISTORY: S/P right pigtail catheter COMPARISON STUDY: 09/29/2019 FINDINGS: Complete opacification right hemithorax. Pigtail catheter placed peripheral aspect right mi d lung. A small amount of aerated lung is identified adjacent to the catheter. Left lung remains clear. IMPRESSION: 1. Complete opacification right hemithorax. 2. Drainage catheter placed in the mid lateral right hemithorax with a trace amount of surrounding ae rated lung. 3. Left lung remains clear. The above report was generated using voice recognition software. It may contain grammatical, syntax or spelling errors. Electronically signed by: Sánchez Freeman M.D. 09/30/2019 3:43 PM
[2019-09-30 15:51] LABS: Appearance Pleural Fluid HAZY; Color Pleural Fluid AMBER; RBC Pleural Fluid (A) 8000 /uL; Source Pleural Fluid RIGHT LUNG; WBC Pleural Fluid (A) 439 /uL
[2019-09-30 16:11] LABS: Amylase Pleural Fluid 35 U/L; Glucose Pleural Fluid 23 mg/dl
[2019-09-30 16:25] LABS: LDH Pleural Fluid 3855 U/L; Total Protein Pleural Fluid 3.3 g/dl
--- NOTE | 2019-09-30 16:52 | CT Scan Report ---
CT chest wo con CLINICAL HISTORY: follow up chest tube placement COMPARISON STUDY: 09/30/2019 CT DOSE: 296.90 mGy.cm TECHNIQUE: CT of the thorax was performed from the thoracic inlet to the lung bases. Images are revi ewed in the axial, sagittal, and coronal planes. IV contrast was not administered for this examinatio n. A dose lowering technique was utilized adhering to the principles of ALARA. FINDINGS: Thyroid: Imaged portions of the thyroid gland are normal in appearance. Thoracic aorta: The thoracic aorta is normal in course and caliber, noting standard 3 vessel arch bertha sarah. Heart: The heart is normal in size and configuration, without pericardial effusion. Lungs and pleural spaces: There is an increasing small left pleural effusion. There has been interval insertion of a right-sided pleural pigtail catheter. The pigtail is formed surrounding the right rib s and proximal sideholes are extrathoracic. The moderate right pleural fluid collection persists. The re are small air bubbles within the pleural space. There is trace subcutaneous emphysema. There is pe rsistent extensive consolidation of the underlying right lung. Mediastinum: There are borderline enlarged mediastinal lymph nodes likely reactive. Sara: The hilar structures are difficult to assess without contrast and given the extensive right angelina g consolidation Axilla: There is no evidence of pathologic axillary lymphadenopathy Upper abdomen: Partially visualized upper abdominal viscera is within normal limits. Skeletal structures: Minor superior endplate compression deformities of T5 T10 and T11 vertebral bodi es persist IMPRESSION: 1. Interval insertion of a right-sided pleural pigtail catheter. The pigtail is not fully within the pleural space as it surrounds the right ribs. The proximal sidehole is extrathoracic. 2. Small amount of subcutaneous emphysema on the right 3. A moderate loculated right pleural effusion persists 4. Persistent extensive right lung consolidation 5. Small left pleural effusion Electronically signed by: Mathieu Castillo M.D. 09/30/2019 4:51 PM
--- NOTE | 2019-09-30 17:36 | Surgery Consultation ---
Date of Consultation September 30, 2019 Assessment & Plan (1) Empyema of right pleural space: Present on Admission?: Yes (2) Pneumococcal sepsis: Present on Admission?: Yes (3) Pneumonia: I had a long talk with the patient and her father. I also discussed this with Dr. león. This patient is ill. She has an empyema with a possible lung abscess. Pigtail catheter did not drain much fluid. I had a long talk explained that I thought that a thoracoscopic evacuation of her empyema contents would be the best way to go. We will offer this to her tomorrow. She is getting worse with antibiotics. I discussed where her incisions would be and what to expect. She and her father both in agreement. We discussed risks and benefits. I remain concerned about her. They are agreeable to a right thoracoscopic evacuation of empyema contents with a possible decortication. Present on Admission?: Yes History of Present Illness Attending Physician: Ganga Rodriguez MD History of Present Illness Edna Pantoja is a 29-year-old with a seizure disorder as well as user of alcohol and tobacco who states that she quit smoking about 3 weeks ago and then had a seizure. Unclear to me whether she was inebriated or had a seizure when she aspirated but she has an obvious aspiration pneumonia on the right side with almost total opacification of the right hemithorax. CT scan shows complicated fluid which goes from the apex all the way down to the diaphragm. There is a small area of her right upper lobe which is aerated and she may well have an abscess in the upper lobe. Having said that she also has a empyema. Dr. Steve León inserted a pleural catheter and drained about 100 cc of fluid. The pH is 6.9. Patient is quite ill. She has a white count that is elevated at over 30,000. She is been in the hospital for [address] scan from 09-30-19 shows worsening process over 4-days in comparison to a CT scan from 09-26-19. I been asked to evaluate her from a thoracic surgery standpoint. Allergies Allergy/AdvReac Type Severity Reaction Status Date / Time No Known Allergies Allergy Unverified 09/25/19 23:37 Home Medications Home Medications Medication Instructions Recorded Confirmed Type fluoxetine [Prozac] 60 mg PO DAILY 11/03/18 09/25/19 History aripiprazole [Abilify] 5 mg PO DAILY 09/25/19 09/25/19 History Patient History Medical History Admitted to intensive care unit Alcohol withdrawal Alcohol withdrawal seizure (Inactive) Alcoholism Depression Elevated LFTs Hypophosphatemia Sepsis (Inactive) Severe sepsis Thrombocytopenia (Inactive) Tobacco use Surgical History No pertinent past surgical history Family History Mother Diabetes Social History Preferred Language: Setswana Communication Ability: Effective Visual Impairment: Partially Limited Molder Closed Molds Required: No Beliefs That Will Affect Care: None marital status: Single marital status details: Boyfriend Current Living Situation: Parent Current Living Situation Comment: father Feels Safe at Home: Yes Smoking Status: Current every day smoker Tobacco Type: cigarettes ; Cigarettes Per Day: 10 ; Second Hand Exposure: Yes ; Tobacco Cessation Education Requested by Patient: No Hx Alcohol Use: Yes Alcohol type: beer and hard liquor Alcohol Intake Frequency Comment: 6-7 daily Hx Substance Use: No Review of Systems Review of Systems: Patient states before she had a seizure she was "not bad". She is had a cough and more difficulty breathing. She is been tachycardic. Heart rates currently in the 1 teens. Saturations 90% on room air and she does not appear to have respiratory distress during the interview. States her appetite is been "okay" but she is not eating much since she got to the hospital. Urine output was quite low when she was in renal failure upon presenting with a creatinine which was I popping and it was high is 8.16 however this quickly came down and over a 48-hour. Dropped to 3.16 and today for days after her admission started 5 days after her initial creatinine of 8.16 she is down to 0.47. She also has a contusion over her right eye with a black eye which occurred when she had her seizure. She has had leg cramps and is been hypomagnesemic. She denies palpitations. Neurologically she did have a seizure. The rest of her review of systems is unremarkable. Physical Exam Physical Exam: This is a young woman who appears her stated age of 29. She is tearful. She has a hemorrhagic conjunctiva of the right eye. She has some ecchymosis around this. Having said that her tubes are small but reactive. Her left sclera is anicteric. Her neck is supple. She has no neck vein distention or tracheal deviation. She is markedly decreased breath sounds on the right with really no wheezing. She is moving air well in the left. She is tachycardic with a heart rate of about 110. Abdomen is soft. She has no peripheral edema with excellent peripheral pulses. Her extremities are warm and dry. Neurologically she has no focal deficits. Results & Data Vital Signs (Past 12 Hours) Vital Signs Temp Pulse Pulse Resp BP BP Pulse Ox 09/30/19 15:15 116 H 09/30/19 13:30 106 H 16 90 09/30/19 11:23 37.5 C 108 H 16 114/70 91 09/30/19 07:23 36.8 C 115 H 16 113/72 91 09/30/19 07:20 116 H 16 91 09/30/19 06:55 114 H PG Care Time/CCT Total # of Minutes Spent Total Time Spent with Patient: Total time spent is greater than 50% in coordination of care (as documented) at patient's floor/unit and/or counseling patient: (1) Pneumonia Laterality: right Lung location: upper lobe of lung Pneumonia type: due to unspecified organism Qualified Code(s): J18.9 - Pneumonia, unspecified organism
[2019-09-30] MEDS: HYDROmorphone INJ 0.5 MG/0.5 ML SYR IV PRN (17:49)
[2019-09-30 18:04] LABS: Basophils, Fluid 0 %; Eosinophils, Fluid 0 %; Lymphocytes, Fluid 7 %; Mono,Macrophage,Mesothelial 1 %; Neutrophils, Fluid 92 %
--- NOTE | 2019-09-30 18:28 | Procedure Note ---
Procedure Note Date of Service September 30, 2019 Note PIGTAIL CATHETER PLACEMENT NOTE: Procedure: Pigtail Catheter Chest Tube Placement Indication: Empyema Anesthesia: 10 mL lidocaine 1% X written consent was obtained and on the chart per attending providers. Prior to procedure, chest x-ray films were reviewed by myself and demonstrated large pleural effusion. A time-out was completed verifying correct patient, procedure, site, positioning, and implant(s) or special equipment if applicable. Utilizing bedside ultrasound, chest wall was evaluated for location for optimal chest tube placement. Location between the fourth and fifth ribs were marked on the skin using gentle pressure. The right sided chest wall was prepped with chlorhexidine and draped in the typical sterile fashion. 10 mL of 1% Lidocaine without epinephrine was used to anesthetize the skin down to the dorsal surface of the fourth rib. Michael-colored fluid return confirmed entry into the pleural space. Lidocaine was injected into the pleural space for increased anesthetization. Introducer needle on syringe was inserted in perpendicular fashion taking care to ride just above the dorsal surface of the fourth rib. Entry into the pleural space was heralded by michael-colored fluid return into the syringe while under gentle aspiration. Guide wire was advanced into the pleural space without resistance and the introducer needle was subsequently removed. Scalpel was used to make small incision of the superficial tissue, parallel to the direction of the rib anatomy. Dilator was advanced uneventfully over the guide wire into the pleural space. 14 Bengali Pigtail Catheter was inserted into the pleural space. Inner introducer and guide wire were removed. Drain was immediately connected to pre-prepared FATOU pleur-evac system. Pigtail was sutured securely in place and sterile dressing was applied. Chest tube was placed to -20 cmH2O suction. Patient tolerated procedure well. Blood Loss: Minimal Complications: None Yes post procedure Chest X-ray was ordered and reviewed by myself which demonstrated the pigtail catheter abutting the pleural space and possibly in the fissure. A CT chest was then obtained which demonstrated that 1 of the fenestrations was just out of the pleural space. Approximately 150 mL's of fluid has been aspirated thus far. The fluid is consistent with an empyema. I did discuss the case with Dr. Jose and he will take the patient to surgery tomorrow to evaluate the pleural space. Coding CPT Codes Pulmonary/Thoracic - Pulmonary and Thoracic: 33042 Pleural drainage w/imaging ([id number])
[2019-09-30] MEDS ORDERED: ACETAMINOPHEN 325 MG TAB PO STA (23:51)
[2019-09-30] MEDS ORDERED: SODIUM CHLORIDE 0.9% 500 ML IV ONE (23:55)
[2019-10-01] MEDS: ACETAMINOPHEN 325 MG TAB PO PRN
[2019-10-01] MEDS: LEVALBUTEROL HCL 0.63 MG/3 ML NEB NEB SCH ×4 (01:17→21:59)
[2019-10-01] MEDS: IPRATROPIUM BROMIDE NEB SOLN 0.02% 2.5 ML VIAL INH SCH ×4 (01:17→21:58)
[2019-10-01] MEDS: POTASSIUM CHLORIDE 10 MEQ in SODIUM CHLORIDE 0.9% 1000ML 1,000 ML IV SCH ×2 (01:47→22:10)
[2019-10-01] MEDS: OXYCODONE HCL IR 5 MG TAB (IMMEDIATE RELEASE) PO PRN ×2 (04:05→11:09)
[2019-10-01] MEDS ORDERED: VANCOMYCIN TROUGH ONE (05:30)
[2019-10-01] MEDS: HYDROmorphone INJ 0.5 MG/0.5 ML SYR IV PRN ×2 (06:02→22:27)
[2019-10-01] MEDS: PIPERACILLIN/TAZOBACTAM 3.375 GM in DEXTROSE 5% 100 ML IV SCH (06:41)
[2019-10-01] MEDS: VANCOMYCIN HCL 1,000 MG in SODIUM CHLORIDE 0.9% 250 ML IV SCH (06:42)
[2019-10-01 06:54] LABS: Hematocrit (blood only) 26.2 % (37-47); Hemoglobin 8.7 g/dL (12.0-16.0); Mean Corpuscular Hemoglobin 38.5 pg (25-34); Mean Corpuscular Hgb Conc 33.2 g/dL (32-36); Mean Corpuscular Volume 115.9 fL (80-100); Platelet Count 329 K/uL (130-400); RDW Coefficient of Variation 14.2 % (11.5-14.5); RDW Standard Deviation 59.3 fL (36.4-46.3); Red Blood Count 2.26 M/uL (4.2-5.4); White Blood Count 24.94 K/uL (4.8-10.8)
[2019-10-01 07:14] LABS: Basophils # (auto) 0.03 K/uL (0-0.2); Basophils % (auto) 0.1 %; Eosinophils # (auto) 0.03 K/uL (0-0.5); Eosinophils % (auto) 0.1 %; Immature Granulocytes # (auto) 0.91 K/uL (0.00-0.02); Immature Granulocytes % (auto) 3.6 %; Lymphocytes # (auto) 1.03 K/uL (1.2-3.4); Lymphocytes % (auto) 4.1 %; Macrocytosis Present; Monocytes % (auto) 7.2 %; Neutrophils # (auto) 21.14 K/uL (1.4-6.5); Neutrophils % (auto) 84.9 %; Polychromasia 1+
[2019-10-01 07:37] LABS: BUN Creatinine Ratio 9.5 (10-20); Blood Urea Nitrogen 4 mg/dl (7-18); Carbon Dioxide 23 mmol/L (21-32); Chloride 106 mmol/L (98-107); Est GFR (African American) > 150.0; Est GFR (Non-African American) 141.6; Glucose 79 mg/dl (70-99); Magnesium 1.4 mg/dl (1.8-2.4); Potassium 4.2 mmol/L (3.5-5.1); Sodium 136 mmol/L (136-145)
[2019-10-01 07:38] LABS: Phosphorus 4.2 mg/dl (2.5-4.9)
[2019-10-01] MEDS: FLUOXETINE HCL 20 MG CAP PO SCH (08:19)
[2019-10-01] MEDS: NICOTINE 14 MG/24 HR PATCH TD SCH (08:19)
[2019-10-01] MEDS: ARIPiprazole 5 MG TAB PO SCH (08:20)
[2019-10-01] MEDS: MAGNESIUM CHLORIDE 64MG DELAYED REL TAB PO SCH ×2 (08:20→22:17)
[2019-10-01] MEDS: CYCLOBENZAPRINE HCL 5 MG TAB PO PRN (08:20)
[2019-10-01] MEDS: LIDOCAINE 5% 1 PATCH TD SCH ×2 (08:21)
[2019-10-01] MEDS: MAGNESIUM SULFATE / D5W 1 GM/100 ML BAG IV SCH ×2 (09:45→10:46)
--- NOTE | 2019-10-01 10:05 | Pulmonology Progress Note ---
Date of Service October 01, 2019 Assessment & Plan (1) Empyema of right pleural space: The patient has a right-sided empyema based on pleural fluid studies from yesterday which suggested decreased pH and a decrease glucose. We attempted to place a chest tube yesterday but were only able to drain about 250 mL's of fluid total. She is to undergo a VATS today by thoracic surgery which should be definitive management of this infection. She does have a pulmonary abscess and will likely need prolonged antibiotics for this pulmonary abscess as well. Pulmonary will follow on the periphery. Please call with questions. Thank you for the consult. (2) Pulmonary abscess: Pulmonary abscess pneumonia presence: with pneumonia Laterality: right Lung location: unspecified part of lung Qualified Code(s): J85.1 - Abscess of lung with pneumonia Subjective Patient is doing a bit better today. She still has pain in her right side. She denies any fever. She is anxious about surgery today. The chest tube on the right did fall out this morning. There was about 250 mL of fluid out in total. She denies any nausea or vomiting. Physical Exam Constitutional: Multiple bruises on her face. She has a red hair. She is in no apparent distress. Eyes: PERRL, conjunctivae normal, anicteric sclerae ENMT: external ear and nose normal, oropharynx normal Neck: trachea midline, no thyromegaly Respiratory: Diminished breath sounds on the right. Cardiovascular: RRR, no murmur, no edema Gastrointestinal (Abdomen): normal bowel sounds, soft, nontender, no hepatosplenomegaly Psychiatric: A+Ox3, euthymic affect Results & Data Vital Signs (Past 12 Hours) Vital Signs Temp Pulse Pulse Pulse Resp BP Pulse Ox 10/01/19 07:23 102 H 14 92 10/01/19 07:00 98.8 F 96 H 16 116/77 91 10/01/19 05:14 98.8 F 100 H 20 107/72 91 10/01/19 01:45 98.4 F 10/01/19 01:18 112 H 20 96 09/30/19 23:35 110 H 09/30/19 22:27 99.3 F 113 H 24 102/65 92 I personally reviewed the patient's pertinent labs and chest imaging. PG Care Time/CCT Total # of Minutes Spent Total Time Spent with Patient: Total time spent is greater than 50% in coordination of care (as documented) at patient's floor/unit and/or counseling patient:
[2019-10-01] MEDS ORDERED: MIDAZOLAM HCL 1 MG/ML 2ML VIAL ONE (11:45)
[2019-10-01] MEDS ORDERED: fentaNYL citrate 100 MCG/2 ML VIAL ONE ×4 (11:45→16:17)
--- NOTE | 2019-10-01 12:19 | Anesthesiology Consultation ---
Date of Service October 01, 2019 Assessment & Plan (1) Encounter for pre-operative examination: Chart Review Chart Review: Acceptable Risk for Surgery Consults Requested none ASA ASA3 Proposed Anesthesia Anesthesia Type: General Risk / Benefits Reviewed With: PT / POA / Parent / Guardian, Accepts Plan and Informed Consent Obtained History Surgery Operation Date: 10/01/19 12:55 Proposed Procedures p Evacuation of Empyema - Erik Jose MD, FACS Height/Weight Height: 5 ft 4 in Weight: 61.1 kg Allergies Allergy/AdvReac Type Severity Reaction Status Date / Time lorazepam [From Ativan] AdvReac Severe Agitated Verified 10/01/19 12:49 Medications Home Medications Medication Instructions Recorded Confirmed Last Taken fluoxetine [Prozac] 60 mg PO DAILY 11/03/18 09/25/19 09/25/19 aripiprazole [Abilify] 5 mg PO DAILY 09/25/19 09/25/19 09/25/19 Active Medications Generic Name Dose Route Start Last Admin Trade Name Freq PRN Reason Stop Dose Admin Acetaminophen 325 mg 09/26/19 02:29 09/30/19 20:55 Tylenol PO 10/26/19 02:28 325 mg Q6H PRN Administration Pain or Fever Aripiprazole 5 mg 09/26/19 09:00 10/01/19 08:20 Abilify PO 10/26/19 08:59 5 mg DAILY RUSS Administration Cyclobenzaprine HCl 5 mg 09/28/19 10:00 10/01/19 08:20 Flexeril PO 10/28/19 10:14 5 mg BID PRN Administration Muscle Spasm Fluoxetine HCl 60 mg 09/27/19 09:15 10/01/19 08:19 Prozac PO 10/27/19 09:14 60 mg DAILY RUSS Administration Hydromorphone HCl 0.5 mg 09/30/19 17:15 10/01/19 06:02 Dilaudid IV 10/14/19 17:14 0.5 mg Q4H PRN Administration Pain Potassium Chloride 10 meq/ 1,005 mls @ 75 mls/hr 10/01/19 01:30 10/01/19 11 :47 Sodium Chloride IV 10/31/19 01:29 75 mls/hr .[id number] RUSS Infusion Ioversol 100 ml 09/30/19 04:50 09/30/19 04:50 Optiray 320 100ml IV 10/04/19 04:49 92 ml ONCE PRN Administration Interaction Checking Ipratropium [place] 0.5 mg 09/26/19 09:30 10/01/19 07:21 Atrovent 0.02% 0.5mg/2.5ml INH 10/26/19 09:29 0.5 mg Q6R RUSS Administration Levalbuterol HCl 0.63 mg 09/26/19 09:30 10/01/19 07:21 Xopenex 0.63 Mg/3 Ml Neb NEB 10/26/19 09:29 0.63 mg Q6R RUSS Administration Lidocaine 1 patch 09/28/19 10:00 10/01/19 08:21 Lidoderm 5% TD 10/28/19 09:59 Not Given QAM RUSS Lidocaine 1 patch 09/30/19 09:00 10/01/19 08:21 Lidoderm 5% TD 10/30/19 08:59 Not Given QAM RUSS Magnesium Chloride 64 mg 09/29/19 09:00 10/01/19 08:20 Slow-Mag PO 10/29/19 08:59 64 mg BID RUSS Administration Miscellaneous 1 ea 09/26/19 08:59 10/01/19 08:19 Remove Nicoderm Patch N/A 10/26/19 08:58 Not Given DAILY@0859 RUSS Miscellaneous 1 ea 09/28/19 21:00 09/30/19 20:36 Remove Lidoderm Patch N/A 10/28/19 20:59 1 ea DAILY@2100 RUSS Administration Miscellaneous 1 ea 09/30/19 21:00 09/30/19 20:36 Remove Lidoderm Patch N/A 10/30/19 20:59 1 ea DAILY@2100 RUSS Administration Nicotine 14 mg 09/26/19 03:40 10/01/19 08:19 Nicoderm Cq TD 10/26/19 03:39 Not Given QAM RUSS Oxycodone HCl 5 mg 09/26/19 02:29 10/01/19 11:09 Roxicodone Immediate Rel PO 10/10/19 02:28 5 mg Q4H PRN Administration Pain NPO Date Last Intake of Fluids: 10/01/19 Date Last Intake of Solids: 09/30/19 Past Medical History Medical History Admitted to intensive care unit Alcohol withdrawal Alcohol withdrawal seizure (Inactive) Alcoholism Depression Elevated LFTs Hypophosphatemia Pulmonary abscess Sepsis (Inactive) Severe sepsis Thrombocytopenia (Inactive) Tobacco use Exercise / Class Metabolic Activity II 4-5 Yardwork/Stairs/Walk up hill Past Family History Family History Mother Diabetes Past Surgical History Surgical History No pertinent past surgical history Past Anesthesia History No Hx of Anesthesia Complications and No Family Hx of Anesthesia Complications History of PONV No Hx of PONV and No Hx of Motion Sickness Social History Smoking Status: Current every day smoker tobacco type: cigarettes Smoking cigarettes per day: 10 Hx Alcohol Use: Yes Alcohol type: beer and hard liquor alcohol intake frequency: 3 or more drinks per day Alcohol Intake Frequency Comment: quit one month ago Hx Substance Use: No substance use type: does not use Physical Exam Vital Signs Last Vital Signs Temp 99.7 F H 10/01/19 12:50 Pulse 120 H 10/01/19 12:50 Resp 20 10/01/19 12:50 BP 111/74 10/01/19 12:50 Pulse Ox 91 10/01/19 12:50 ENMT Mouth: no dentition abnormality Thyromental Distance: > or= 3.5 Finger Breadths Mallampati Class: II Neck normal visual inspection Respiratory normal respiratory effort Auscultation: + diminished lung sounds Cardiovascular Rate/Rhythm: regular rate and regular rhythm Testing Laboratory Results 10/01/19 06:31 10/01/19 06:31 PT 10.7 Seconds (9.0-12.0) 09/30/19 09:21 INR 1.0 (0.9-1.1) 09/30/19 09:21 APTT 24.2 Seconds (21.0-31.0) 09/30/19 09:21 Urine Color Dark Yellow 09/25/19 21:10 Urine Appearance Turbid (Clear) A 09/25/19 21:10 Urine pH 5.0 (4.5-7.5) 09/25/19 21:10 Ur Specific [place] 1.029 (1.000-1.030) 09/25/19 21:10 Urine Protein Trace (Negative) H 09/25/19 21:10 Urine Glucose (UA) Negative (Negative) 09/25/19 21:10 Urine Ketones Negative (Negative) 09/25/19 21:10 Urine Nitrite Negative (Negative) 09/25/19 21:10 Ur Leukocyte Esterase Trace (Negative) H 09/25/19 21:10 Urine WBC (Auto) 10-30 /hpf (0-5) H 09/25/19 21:10 Urine RBC (Auto) 0-4 /hpf (0-4) 09/25/19 21:10 U Hyaline Cast (Auto) 1-5 /lpf (0-5) 09/25/19 21:10 U Epithel Cells (Auto) >30 /lpf (0-5) H 09/25/19 21:10 Urine Bacteria (Auto) 2+ (Negative) H 09/25/19 21:10 Blood Type O Positive 09/30/19 02:26 Antibody Screen NEGATIVE 09/30/19 02:26 09/30/19 15:05 Gram Stain - Final Pleural Fluid Aerobic and Anaerobic Culture - Preliminary No growth to date. 09/30/19 02:26 Aerobic Blood Culture - Preliminary Blood No growth in Aerobic bottle after 24 hours. Anaerobic Blood Culture - Final 09/30/19 02:26 Aerobic Blood Culture - Preliminary Blood No growth in Aerobic bottle after 24 hours. Anaerobic Blood Culture - Preliminary No growth in Anaerobic bottle after 24 hours. 09/26/19 09:15 Gram Stain - Final Sputum, Expectorated Sputum Culture - Final Streptococcus pneumoniae 09/26/19 00:14 Aerobic Blood Culture - Final Blood Streptococcus pneumoniae Anaerobic Blood Culture - Final Streptococcus pneumoniae 09/25/19 23:40 Aerobic Blood Culture - Final Blood Streptococcus pneumoniae Anaerobic Blood Culture - Final Streptococcus pneumoniae 09/25/19 21:10 Urine Culture - Final Urine,Clean Catch Lactobacillus species 09/25/19 21:10 POC Ur Test NEG Electrocardiogram Date: 09/25/19 Sinus tachycardia, rate 101 bpm Prolonged QT Abnormal ECG When compared with ECG of 11-MAR-2019 19:49, T wave amplitude has increased in Lateral leads Confirmed by Yonny Gannon ([id number]) on 09/26/2019 5:55:[address] Chest 09/30/19 IMPRESSION: 1. Interval insertion of a right-sided pleural pigtail catheter. The pigtail is not fully within the pleural space as it surrounds the right ribs. The proximal sidehole is extrathoracic. 2. Small amount of subcutaneous emphysema on the right 3. A moderate loculated right pleural effusion persists 4. Persistent extensive right lung consolidation 5. Small left pleural effusion
--- NOTE | 2019-10-01 12:57 | Infectious Disease Progress Nt ---
Date of Service October 01, 2019 Assessment & Plan (1) Pneumococcal sepsis: will change to unasyn, await OR findings, follow cultures. will follow. (2) Pneumonia: Subjective pt seen in f/u, family at bedside. for OR toay for VATS, s/p chest tube yesterday. states she is feeling much better todat, no cp, sob, cough. no pain. no f/c tolerating abx. fluid culture pending, repeat blood cultures negative to date. Review of Systems Review of Systems: All systems reviewed & are unremarkable except as noted in HPI & below Physical Exam Constitutional: WD/WN, vitals as above Eyes: PERRL, conjunctivae normal, anicteric sclerae ENMT: external ear and nose normal, oropharynx normal Neck: normal visual inspection Respiratory: Auscultation: + diminished lung sounds and + rhonchi Cardiovascular: RRR, no murmur, no edema Gastrointestinal (Abdomen): normal bowel sounds, soft, nontender, no hepatosplenomegaly Musculoskeletal: no cyanosis or clubbing, extremities motor strength 5/5 Skin: no rashes, warm and dry Psychiatric: A+Ox3, euthymic affect Results & Data Vital Signs (Past 12 Hours) Vital Signs Temp Pulse Pulse Pulse Resp BP BP 10/01/19 12:50 37.6 C H 120 H 20 111/74 10/01/19 11:29 36.9 C 129 H 16 111/71 10/01/19 08:20 99 H 10/01/19 07:23 102 H 14 10/01/19 07:00 37.1 C 96 H 16 116/77 10/01/19 05:14 37.1 C 100 H 20 107/72 10/01/19 01:45 36.9 C 10/01/19 01:18 112 H 20 Pulse Ox 10/01/19 12:50 91 10/01/19 11:29 93 10/01/19 08:20 10/01/19 07:23 92 10/01/19 07:00 91 10/01/19 05:14 91 10/01/19 01:45 10/01/19 01:18 96 Laboratory Results Microbiology 09/30/19 15:05 Pleural Fluid Gram Stain - Final 09/30/19 15:05 Pleural Fluid Aerobic and Anaerobic Culture - Preliminary No growth to date. 09/30/19 02:26 Blood Aerobic Blood Culture - Preliminary No growth in Aerobic bottle after 24 hours. 09/30/19 02:26 Blood Anaerobic Blood Culture - Final 09/30/19 02:26 Blood Aerobic Blood Culture - Preliminary No growth in Aerobic bottle after 24 hours. 09/30/19 02:26 Blood Anaerobic Blood Culture - Preliminary No growth in Anaerobic bottle after 24 hours. 09/26/19 09:15 Sputum, Expectorated Gram Stain - Final 09/26/19 09:15 Sputum, Expectorated Sputum Culture - Final Streptococcus pneumoniae 09/26/19 00:14 Blood Aerobic Blood Culture - Final Streptococcus pneumoniae 09/26/19 00:14 Blood Anaerobic Blood Culture - Final Streptococcus pneumoniae 09/25/19 23:40 Blood Aerobic Blood Culture - Final Streptococcus pneumoniae 09/25/19 23:40 Blood Anaerobic Blood Culture - Final Streptococcus pneumoniae 09/25/19 21:10 Urine,Clean Catch Urine Culture - Final Lactobacillus species PG Care Time/CCT Total # of Minutes Spent Total Time Spent with Patient: Total time spent is greater than 50% in coordination of care (as documented) at patient's floor/unit and/or counseling patient: (1) Pneumonia Laterality: right Lung location: upper lobe of lung Pneumonia type: due to unspecified organism Qualified Code(s): J18.9 - Pneumonia, unspecified organism
[2019-10-01] MEDS ORDERED: ONDANSETRON INJ 2 MG/ML 2 ML VIAL IV PRN ×2 (13:05→18:38)
[2019-10-01] MEDS ORDERED: fentaNYL citrate 100 MCG/2 ML VIAL IV PRN (13:05)
[2019-10-01] MEDS ORDERED: ATROPINE SULFATE 0.1 MG/ML 10ML SYR IV PRN (13:05)
[2019-10-01] MEDS ORDERED: ePHEDrine sulfate 50 MG/ML AMP IV PRN (13:05)
[2019-10-01] MEDS ORDERED: HYDROmorphone INJ 1 MG/ML SYRINGE IV PRN (13:05)
--- NOTE | 2019-10-01 13:08 | History & Physical Bridge Note ---
Date of Service October 01, 2019 History & Physical Bridge Note I have examined the patient, reviewed the History & Physical and in the interval since the performance of the History & Physical I have noted the following changes of clinical significance: no changes noted
[2019-10-01] MEDS ORDERED: BUPIVACAINE 0.5 % 5 MG/1 ML MPF 30ML VIAL ONE (13:47)
[2019-10-01] MEDS ORDERED: BUPIVACAINE LIPOSOME 1.3% 266 MG/20 ML VIAL ONE (13:47)
[2019-10-01] MEDS ORDERED: SODIUM CHLORIDE 0.9% PF 50 ML VIAL ONE (13:48)
[2019-10-01] MEDS ORDERED: PHENYLEPHRINE 100MCG/ML 5ML SYR ONE (14:57)
[2019-10-01] MEDS ORDERED: PROPOFOL IV EMULSION 10 MG/ML 20 ML VIAL IV ONE (14:57)
[2019-10-01] MEDS ORDERED: ROCURONIUM BROMIDE 10 MG/ML 5 ML VIAL ONE ×2 (14:57→16:18)
[2019-10-01] MEDS ORDERED: LIDOCAINE HCL 2% 2 ML VIAL/AMP(20MG/ML) INFIL ONE (14:57)
[2019-10-01] MEDS ORDERED: CEFAZOLIN 250 MG/ML 1 GM VIAL ONE (14:58)
[2019-10-01] MEDS ORDERED: ESMOLOL HCL INJ 10 MG/ML 10ML VIAL IV ONE (15:02)
[2019-10-01] MEDS ORDERED: PHENYLEPHRINE HCL 10 MG/ML VIAL ONE ×2 (15:24→16:09)
[2019-10-01] MEDS ORDERED: HYDROmorphone INJ 2 MG/ML SYR/VIAL ONE (15:50)
[2019-10-01] MEDS ORDERED: VASOPRESSIN 20 UNIT/ML VIAL ONE (16:05)
--- NOTE | 2019-10-01 17:04 | Operative Report ---
PG Post Operative Report Pre & Post Diagnosis Operation Date: 10/01/19 12:55 Pre-Op Diagnosis: right pleural empyema Post-Op Diagnosis: right pleural empyema I identified the patient and participated in the time-out.: Yes Procedure Operation Date: 10/01/19 12:55 Actual Procedures p Evacuation of Empyema with extensive decortication(Right) - Erik Jose MD, FACS Surgeon Erik Jose MD, FACS Associate Accountant Deirdre NIELSON Estimated Blood Loss 150 Findings Consistent with Post-Op Diagnosis Specimens Pleural fluid, parietal pleura, visceral peel, empyema contents Drains 24 fr and 28 fr chest tubes on right Anesthesia Type General Complications none Disposition Accompanied Patient To Recovery: Yes Disposition: Recovery Room Description of Procedure This is a 29-year-old female who has a fairly extensive drinking history and apparently had a seizure and developed an aspiration pneumonia. She was admitted to the hospital 5 days ago and was quite ill. Her white count over 30,000. She is in acute renal failure. She was treated with antibiotics but radiographically worsened. I asked to see her yesterday evening and proceeded with a thoracoscopy today with a evacuation of empyema contents and an extensive decortication of the right lower lobe, right middle lobe, and right upper lobe. She tolerated it well. I attest to the content of the Intraoperative Record and any orders documented therein. Any exceptions are noted below. Procedure: Patient was brought to the operating room and laid in the supine position. General anesthesia was induced and endotracheal intubation performed with a single-lumen tube. Patient was then turned in the left lateral decubitus position and her right chest was prepped and draped in usual sterile fashion. Prophylactic antibiotics and given an appropriate timeout called 5 mm incision was made posterior to the scapula just above the scapular tip. Upon entering could be seen there was a large amount of debris. This was fairly easy to break up and I used the end of the 5 mm 30 degree scope to do this until I had enough room to put a 5 mm port anteriorly. This was about the same level in the chest but anterior latissimus dorsi muscle. This I was able to place a cotton tip applicator and broke up all of the adhesions. There was a large amount of fluid be sent fluid off for culture and also sent multiple other specimens including pleura visceral peel and empyema contents. Finally a larger port was placed in about the mid axillary line just above the diaphragm. We were able to use a larger forceps with this port. Is able to break it up and removed a large amount of empyema contents. I cleaned out the diaphragmatic sulci quite nicely. the lobes quite nicely. We did an extensive decortication especially posterior of the entire lower lobe. The middle lobe medially and the lower lobe medially were also decorticated by grasping the peel and gently removing this. We also decorticated the posterior aspect of the upper lobe all the way up to the apex. We did finally freed up the entire lung and remove all of these contents we increased our tidal volume from a low volume to a higher volume and we did not see an air leak in the lung expanded pretty nicely. We then performed an intrathoracic block using Exparel. 266 mg of the X. Underwood were mixed with 30 cc of 0.5% bupivacaine and 250 cc of normal saline under thoracoscopic guidance was used to perform a block from the second to the 12th ribs. We also injected each of the port sites. The conclusion of the case I placed a 24 Salv[place]orean chest tube through new incision and directed towards the apex. I also placed a 28 [place] right angle chest tube through our larger port and sutured these both in place with heavy silk suture. The larger port had the muscle layers closed with a 0 Vicryl and then we used 4-0 Monocryl running septic or fashion to approximate the wound edges. 2 upper ports were then closed with 4-0 Monocryl in a running continuous fashion. Patient tolerated it well. We really did not lose much blood. We did not note an air leak either chest tube. Transported back to the postanesthesia care unit stable condition.
--- NOTE | 2019-10-01 17:25 | XRay Report ---
XR chest 1V portable CLINICAL HISTORY: decortication COMPARISON STUDY: 09/30/2019 FINDINGS: Considerable improvement in aeration right hemithorax. There is a right chest tube, a right basilar chest drainage tube, as well as a residual increased density in the right mid and right uppe r lung regions. No significant postprocedural pneumothorax. Minimal developing atelectasis left base. IMPRESSION: 1. Improved aeration right hemithorax on a postoperative basis. 2. Drainage catheter is in good position. 3. No evidence for pneumothorax. 4. Developing minimal atelectasis left base versus minimal infiltrate. The above report was generated using voice recognition software. It may contain grammatical, syntax or spelling errors. Electronically signed by: Sánchez Freeman M.D. 10/01/2019 5:24 PM
[2019-10-01] MEDS ORDERED: Nursing to Pharmacy Communication ONE (17:34)
--- NOTE | 2019-10-01 17:46 | Critical Care Progress Note ---
Date of Service October 01, 2019 Assessment & Plan (1) Admitted to intensive care unit: Reason Critically Ill: 29-year-old female here for recovery status post VATS for for definitive management of pulmonary empyema. Past medical history significant for Alcohol withdrawal, depression, mental health disorder, current tobacco abuse Neuro: -[facility] ICU: NEGATIVE -Mentating well, no concerns at present Cardiac: Hypotension: Likely secondary to procedure and underlying infection. Will treat infection and provide adequate supportive postoperative care. Respiratory: Right-sided pulmonary abscess: Patient presented to the hospital on 09/26 with sepsis, acute renal failure, hyponatremia, hypokalemia all secondary to aspiration pneumonia from chronic alcohol abuse. She was evaluated by infectious disease and diagnosed with pneumococcal sepsis and a right-sided pulmonary abscess. Initially she was started on Zosyn and subsequently changed to ceftriaxone. She remained on ceftriaxone for 3 days and then was changed to Unasyn which she has been maintained on. Pulmonary medicine was consulted for further evaluation and management, the chest tube was placed yesterday on 09/30 and drained approximately 250 mL of fluid. Subsequent chest x-ray determined that the chest tube was not in the correct location, CT surgery was consulted. CT surgery evaluated the patient and felt that a VATS procedure would be most appropriate to help treat her current infection. She proceeded with the surgery today, had an episode of hypotension requiring pressors intraoperatively, and was tachypneic and hypotensive postoperatively. She was sick subsequently transferred to the ICU for further evaluation and management -Routine postoperative care per CT surgery Continue IV Unasyn Wean pressors as tolerated PRN O2 as required GI: -Clear liquid diet advance as tolerated RENAL/LYTES: -No significant electrolyte derangement. -Replace lytes as needed. -f/u bmp : - No concerns at this time. ENDO: - No concerns at this time HEME: - Stable H&H. ID: - See Respiratory -Monitor fever curve. INTEGUMENTARY: -no concerns at present LINES/IV ACCESS: -PIVs intact. DVT PROPHYLAXIS: -Currently contraindicated secondary to surgery -SCDs Dispo: ICU Thank you for allowing us to be part of this patient's care. Please refer to Dr. Miller's documentation for any further recommendations. (2) Pulmonary abscess: (3) Empyema of right pleural space: (4) Pleural effusion on right: (5) Pneumococcal sepsis: Supervising Physician Co-Signing Physician Notes Dr. Lopez was the resident-physician during care of patient. I separately evaluated patient for cast portions of the history and the exam. I was present during the critical portion of medical decision making, and I discussed the case with the resident. I generally agree with the findings and plan except for any additions/exceptions noted. The patient was seen in the PACU s/p VATS procedure. She has [address] with no evidence of air leak. She was hypotensive and tachycardic throughout the procedure and post surgery. She is sitting up in bed and denies any significant complaints. She says she has trouble seeing and does not have her contacts in. She denies any chest pain. She says that she is "fine". She also says that she needs to urinate. She is on a low-dose of phenylephrine at present. Her mean arterial pressure at the time of my exam was 95. She had some mild tachycardia. She likely has some hypotension related to sepsis and sedation. She has been tachycardic throughout her hospitalization secondary to streptococcal pneumonia, empyema and pulmonary abscess. Hopefully, this VATS procedure will be definitive therapy for her empyema. We will continue her on Unasyn as recommended by infectious disease. We will obtain a troponin, lactic acid, CBC and a BMP stat. Continue fluid boluses as needed. We will wean off the phenylephrine. I do not think she needs a central line placed at this time unless she has persistent hypotension that requires prolonged pressors. I did personally discuss the patient with thoracic surgeon, Dr. Jose. I have personally spent 32 minutes of critical care time in the direct management of this patient. This is a life/limb threatening event. This includes time spent evaluating patient, direct bedside care, chart review, placing orders, interpretation of diagnostic studies, discussion with consultants, patient, and/or family members regarding treatment decisions, as well as other required patient management activities. This time is exclusive of all separately billable procedures, and teaching time and separate from and in addition to any other critical care service time. Subjective The ICU team was called to the PACU to evaluate the patient postoperatively for postoperative hypotension, tachycardia, and intraoperative requirement of pressors. Patient was mentating well, able to respond to questions, able to follow commands, and saturating well on room air. Patient received approximately 1300 mcg of pressors during the surgery. Other than the hypotension she tolerated the procedure well. She will be transferred to the ICU for evaluation and monitoring overnight that she recovers. Hopefully she will continue to do well and subsequently be discharged from the ICU tomorrow. Physical Exam Physical Exam: General:29-year-old female recovering from anesthesia in no acute distress HEENT: Normocephalic atraumatic Neck: Normal to visual inspection, trachea midline, no thyromegaly Cardiac: Tachycardic otherwise did not appreciate any significant murmurs rubs or gallops, normal S1, normal S2, no significant pedal edema, Respiratory: Tachypnea, coarse breath sounds right greater than left, [address] on the right side, rhonchi clear with coughing MSK: Moves all extremities Skin: No concerns at present, numerous tattoos Neuro: Alert and oriented x4 Psych: Calm, cooperative, Results & Data Vital Signs (Past 12 Hours) Vital Signs Temp Pulse Pulse Pulse Resp BP BP 10/01/19 12:50 37.6 C H 120 H 20 111/74 10/01/19 11:29 36.9 C 129 H 16 111/71 10/01/19 08:20 99 H 10/01/19 07:23 102 H 14 10/01/19 07:00 37.1 C 96 H 16 116/77 Pulse Ox 10/01/19 12:50 91 10/01/19 11:29 93 10/01/19 08:20 10/01/19 07:23 92 10/01/19 07:00 91 Laboratory Results 10/01/19 10/01/19 09/30/19 Range/Units 06:31 06:31 15:05 WBC 24.94 H (4.8-10.8) K/uL RBC 2.26 L (4.2-5.4) M/uL Hgb 8.7 L (12.0-16.0) g/dL Hct 26.2 L (37-47) % MCV 115.9 H (80-100) fL MCH 38.5 H (25-34) pg MCHC 33.2 (32-36) g/dL RDW Std Deviation 59.3 H (36.4-46.3) fL RDW Coeff of Vinod 14.2 (11.5-14.5) % Plt Count 329 (130-400) K/uL MPV 11.0 H (7.4-10.4) fL Immature Gran % (Auto) 3.6 % Neut % (Auto) 84.9 % Lymph % (Auto) 4.1 % [place] % (Auto) 7.2 % Eos % (Auto) 0.1 % Baso % (Auto) 0.1 % Immature Gran # (Auto) 0.91 H (0.00-0.02) K/uL Neut # (Auto) 21.14 H (1.4-6.5) K/uL Lymph # (Auto) 1.03 L (1.2-3.4) K/uL [place] # (Auto) 1.80 H (0.11-0.59) K/uL Eos # (Auto) 0.03 (0-0.5) K/uL Baso # (Auto) 0.03 (0-0.2) K/uL Polychromasia 1+ Macrocytosis Present Sodium 136 (136-145) mmol/L Potassium 4.2 (3.5-5.1) mmol/L Chloride 106 (98-107) mmol/L Carbon Dioxide 23 (21-32) mmol/L Anion Gap 7.0 (3-11) BUN 4 L (7-18) mg/dl Creatinine 0.41 L (0.6-1.2) mg/dl Est Cr Clr Drug Dosing 178.0 ml/min Est GFR ( Amer) > 150.0 Est GFR (Non-Af Amer) 141.6 BUN/Creatinine Ratio 9.5 L (10-20) Glucose 79 (70-99) mg/dl Calcium 8.0 L (8.5-10.1) mg/dl Phosphorus 4.2 (2.5-4.9) mg/dl Magnesium 1.4 L (1.8-2.4) mg/dl Fluid Neutrophils % 92 % Fluid Lymphocytes % 7 % Fluid Eosinophils % 0 % Fluid Basophils % 0 % Fluid Meso/Macro/Boone % 1 % Medications Administered Current Inpatient Medications Acetaminophen (Tylenol) 325 mg PO Q6H PRN PRN Reason: Pain or Fever Stop: 10/26/19 02:28 Last Admin: 09/30/19 20:55 Dose: 325 mg Documented by: Aripiprazole (Abilify) 5 mg PO DAILY [facility] Stop: 10/26/19 08:59 Last Admin: 10/01/19 08:20 Dose: 5 mg Documented by: Atropine Sulfate (Atropine Sulfate) 0.5 mg IV Q1M PRN PRN Reason: PACU Use-HR<40 &/or Bradycardi Stop: 10/01/19 18:05 Cyclobenzaprine HCl (Flexeril) 5 mg PO BID PRN PRN Reason: Muscle Spasm Stop: 10/28/19 10:14 Last Admin: 10/01/19 08:20 Dose: 5 mg Documented by: Ephedrine Sulfate (Ephedrine Sulfate) 5 mg IV Q5M PRN PRN Reason: PACU Use Only-SBP<90 mmHg Stop: 10/01/19 18:05 Fentanyl Citrate (Fentanyl Citrate) 50 mcg IV Q5M PRN PRN Reason: PACU Use Only-Pain Stop: 10/01/19 18:05 Fluoxetine HCl (Prozac) 60 mg PO DAILY [facility] Stop: 10/27/19 09:14 Last Admin: 10/01/19 08:19 Dose: 60 mg Documented by: Hydromorphone HCl (Dilaudid) 0.5 mg IV Q4H PRN PRN Reason: Pain Stop: 10/14/19 17:14 Last Admin: 10/01/19 06:02 Dose: 0.5 mg Documented by: Hydromorphone HCl (Dilaudid) 0.25 mg IV Q5M PRN PRN Reason: PACU Use Only-Pain Stop: 10/01/19 18:06 Lorazepam (Ativan) 1 mg in 2 mls @ 0.5 mls/min IV Q10M PRN PRN Reason: seizures Stop: 10/26/19 00:26 Lorazepam (Ativan) 0.5 mg in 1 mls @ 1 mls/min IV Q4H PRN PRN Reason: Anxiety/Agitation Stop: 10/26/19 02:28 Promethazine HCl 12.5 mg/ (Sodium Chloride) 50.5 mls @ 202 mls/hr IV Q6H PRN PRN Reason: Nausea And Vomiting Stop: 10/26/19 02:28 Potassium Chloride 10 meq/ (Sodium Chloride) 1,005 mls @ 75 mls/hr IV .[id number] [facility] Stop: 10/31/19 01:29 Last Infusion: 10/01/19 11:47 Dose: 75 mls/hr Documented by: Ampicillin Sodium/Sulbactam Sodium 3,000 mg/ Sodium Chloride 108 mls @ 200 mls/hr IV Q6H [facility]; Protocol Stop: 10/08/19 13:59 Phenylephrine HCl 20 mg/ (Dextrose) 502 mls @ 92.017 mls/hr IV .Q5H28M [facility]; Protocol Stop: 10/31/19 17:44 Ioversol (Optiray 320 100ml) 100 ml IV ONCE PRN PRN Reason: Interaction Checking Stop: 10/04/19 04:49 Last Admin: 09/30/19 04:50 Dose: 92 ml Documented by: Ipratropium [place] (Atrovent 0.02% 0.5mg/2.5ml) 0.5 mg INH Q6R [facility] Stop: 10/26/19 09:29 Last Admin: 10/01/19 14:02 Dose: Not Given Documented by: Levalbuterol HCl (Xopenex 0.63 Mg/3 Ml Neb) 0.63 mg NEB Q6R [facility] Stop: 10/26/19 09:29 Last Admin: 10/01/19 14:02 Dose: Not Given Documented by: Lidocaine (Lidoderm 5%) 1 patch TD QAM [facility] Stop: 10/28/19 09:59 Last Admin: 10/01/19 08:21 Dose: Not Given Documented by: Lidocaine (Lidoderm 5%) 1 patch TD QAM [facility] Stop: 10/30/19 08:59 Last Admin: 10/01/19 08:21 Dose: Not Given Documented by: Magnesium Chloride (Slow-Mag) 64 mg PO BID [facility] Stop: 10/29/19 08:59 Last Admin: 10/01/19 08:20 Dose: 64 mg Documented by: Miscellaneous (Remove Nicoderm Patch) 1 ea N/A DAILY@0859 [facility] Stop: 10/26/19 08:58 Last Admin: 10/01/19 08:19 Dose: Not Given Documented by: Miscellaneous (Remove Lidoderm Patch) 1 ea N/A DAILY@2100 [facility] Stop: 10/28/19 20:59 Last Admin: 09/30/19 20:36 Dose: 1 ea Documented by: Miscellaneous (Remove Lidoderm Patch) 1 ea N/A DAILY@2100 [facility] Stop: 10/30/19 20:59 Last Admin: 09/30/19 20:36 Dose: 1 ea Documented by: Nicotine (Nicoderm Cq) 14 mg TD QAM [facility] Stop: 10/26/19 03:39 Last Admin: 10/01/19 08:19 Dose: Not Given Documented by: Ondansetron HCl (Zofran) 4 mg IV ONCE PRN PRN Reason: PACU Use Only-Nausea/Vomiting Stop: 10/01/19 18:06 Oxycodone HCl (Roxicodone Immediate Rel) 5 mg PO Q4H PRN PRN Reason: Pain Stop: 10/10/19 02:28 Last Admin: 10/01/19 11:09 Dose: 5 mg Documented by: Critical Care Time Critical Care Time: Yes Total Critical Care Time: 32 Resident Activity Tracking Resident Involvement: Resident Care Provided Care Provided: Adult Hospital Medicine (1) Pulmonary abscess Laterality: right Lung location: unspecified part of lung Pulmonary abscess pneumonia presence: with pneumonia Qualified Code(s): J85.1 - Abscess of lung with pneumonia
--- NOTE | 2019-10-01 18:03 | Hospitalist Progress Note ---
Date of Service October 01, 2019 Assessment & Plan (1) Severe sepsis: (1) Severe sepsis: SEVERE SEPSIS SECONDARY TO PNEUMONIA- POSSIBLE COMMUNITY ACQUIRED, ASPIRATION FROM EMESIS Strep BACTEREMIA Blood cultures: (+) for strep pneumonia Urine culture: Negative Sputum culture: Moderate normal arlet CT chest: RUL pneumonia, no abscess Repeat CT chest 09/30/2019: 1. Interval insertion of a right-sided pleural pigtail catheter. The pigtail is not fully within the pleural space as it surrounds the right ribs. The proximal sidehole is extrathoracic. 2. Small amount of subcutaneous emphysema on the right 3. A moderate loculated right pleural effusion persists 4. Persistent extensive right lung consolidation 5. Small left pleural effusion In light of possible empyema, ID on board, ceftriaxone changed to vancomycin plus Zosyn Transitioned to IV Unasyn today Pulmonary consulted, pigtail chest tube placed 09/30/2019, accidentally removed today Thoracic surgery consulted, plan for thoracoscopic evacuation of empyema today Follow-up cultures ACUTE RENAL FAILURE likely Prerenal, ATN from Sepsis Nephro consulted Renal US: no obstruction Crea back to baseline LR discontinued HYPONATREMIA appropriately corrected HYPOKALEMIA likely from emesis, poor intake Replaced SEIZURE EPISODES happened mid-August after patient abstained from alcohol Neurologist consulted, EEG performed Likely secondary to withdrawal seizures HISTORY OF ALCOHOLISM last drink was in mid-August, alcohol level normal no overt signs of withdrawal monitor closely ABNORMAL LIVER ULTRASOUND 1. Mild gallbladder distention is noted along with mild degree of layering sludge. No cholelithiasis or sonographic evidence of acute cholecystitis. 2. No biliary ductal dilation. 3. Increased echogenicity of the liver suggests hepatic steatosis. -- LFTs ok monitor as outpatient THROMBOCYTOPENIA likely from Sepsis, Alcoholism no signs of bleeding improving RIGHT SUBCONJUNCTIVAL HEMORRHAGE sustained after falling, during apparent seizure episode last month no vision problems, hemorrhage improving as per patient Improved today from 57-71 LEFT SHOULDER/ COLLAR BONE AREA PAIN Clavicle or shoulder xray: no fracture Rib xray no acute fractures CT shoulder: No fracture will consult Ortho Lidoderm patch, Flexeril PRN HYPOMAGNESEMIA likely from Alcoholism replace with PO and IV Mg DVT prophylaxis SCDs, early ambulation for now in light of procedures-evaluate, discussed with surgeon Disposition patient declining Alcohol rehab discussed with patient and her father in the afternoon in detail and at length all questions answered They are understanding, agreeable, and comfortable with plan of care Subjective Follow-up for pneumonia, empyema Seen resting in bed, JENNA Elmore at bedside throughout whole encounter States she feels okay overall not in Active shortness of breath, chest pain well controlled Less cough, sputum No other symptoms Review of Systems Review of Systems: All systems reviewed & are unremarkable except as noted in HPI & below Physical Exam Physical Exam: General- oriented x 3, not in distress, speaks in sentences with no effort or accessory muscle use Eyes- anicteric Neck- no JVD Lungs-mild rhonchi right lung, no wheezing Heart- normal rate, regular rhythm; no murmurs Abdomen- normal bowel sounds, nondistended, soft, nontender Extremities- no pretibial edema, no calf tenderness Neuro- alert, oriented x 3; no gross focal neurologic deficits Skin- warm & dry Results & Data Vital Signs (Past 12 Hours) Vital Signs Temp Pulse Pulse Pulse Resp BP BP 10/01/19 17:50 111 H 26 H 118/86 10/01/19 17:35 156 H 23 71/54 L 10/01/19 17:25 122 H 28 H 106/77 10/01/19 17:16 36.7 C 134 H 20 91/51 L 10/01/19 12:50 37.6 C H 120 H 20 111/74 10/01/19 11:29 36.9 C 129 H 16 111/71 10/01/19 08:20 99 H 10/01/19 07:23 102 H 14 10/01/19 07:00 37.1 C 96 H 16 116/77 Pulse Ox 10/01/19 17:50 96 10/01/19 17:35 97 10/01/19 17:25 99 10/01/19 17:16 95 10/01/19 12:50 91 10/01/19 11:29 93 10/01/19 08:20 10/01/19 07:23 92 10/01/19 07:00 91 Laboratory Results Laboratory Results - last 24 hr 09/30/19 10/01/19 10/01/19 15:05 06:31 06:31 WBC 24.94 H RBC 2.26 L Hgb 8.7 L Hct 26.2 L MCV 115.9 H MCH 38.5 H MCHC 33.2 RDW Std Deviation 59.3 H RDW Coeff of Vniod 14.2 Plt Count 329 MPV 11.0 H Immature Gran % (Auto) 3.6 Neut % (Auto) 84.9 Lymph % (Auto) 4.1 [place] % (Auto) 7.2 Eos % (Auto) 0.1 Baso % (Auto) 0.1 Immature Gran # (Auto) 0.91 H Neut # (Auto) 21.14 H Lymph # (Auto) 1.03 L [place] # (Auto) 1.80 H Eos # (Auto) 0.03 Baso # (Auto) 0.03 Polychromasia 1+ Macrocytosis Present Sodium 136 Potassium 4.2 Chloride 106 Carbon Dioxide 23 Anion Gap 7.0 BUN 4 L Creatinine 0.41 L Est Cr Clr Drug Dosing 178.0 Est GFR ( Amer) > 150.0 Est GFR (Non-Af Amer) 141.6 BUN/Creatinine Ratio 9.5 L Glucose 79 Calcium 8.0 L Phosphorus 4.2 Magnesium 1.4 L Fluid Neutrophils % 92 Fluid Lymphocytes % 7 Fluid Eosinophils % 0 Fluid Basophils % 0 Fluid Meso/Macro/[place] % 1
--- NOTE | 2019-10-01 18:10 | Anesthesiology Progress Note ---
Date of Service October 01, 2019 Anesthesia Post Procedure Vital Signs Vital Signs: Temp Pulse Pulse Pulse Resp BP BP 10/01/19 18:00 133 H 25 H 98/58 L 10/01/19 17:50 111 H 26 H 118/86 10/01/19 17:35 156 H 23 71/54 L 10/01/19 17:25 122 H 28 H 106/77 10/01/19 17:16 36.7 C 134 H 20 91/51 L 10/01/19 12:50 37.6 C H 120 H 20 111/74 10/01/19 11:29 36.9 C 129 H 16 111/71 10/01/19 08:20 99 H 10/01/19 07:23 102 H 14 10/01/19 07:00 37.1 C 96 H 16 116/77 10/01/19 05:14 37.1 C 100 H 20 107/72 10/01/19 01:45 36.9 C 10/01/19 01:18 112 H 20 09/30/19 23:35 110 H 09/30/19 22:27 37.4 C 113 H 24 102/65 09/30/19 20:59 27 H 09/30/19 19:52 37.6 C H 112 H 32 H 134/88 09/30/19 19:16 107 H 18 Pulse Ox 10/01/19 18:00 95 10/01/19 17:50 96 10/01/19 17:35 97 10/01/19 17:25 99 10/01/19 17:16 95 10/01/19 12:50 91 10/01/19 11:29 93 10/01/19 08:20 10/01/19 07:23 92 10/01/19 07:00 91 10/01/19 05:14 91 10/01/19 01:45 10/01/19 01:18 96 09/30/19 23:35 09/30/19 22:27 92 09/30/19 20:59 09/30/19 19:52 90 09/30/19 19:16 94 Pain Intensity Right Chest: Pain Intensity: 5 Right Ribs: Pain Intensity: 4 Transfer of Care Handoff Completed per policy Notes Mental Status: alert / awake / arousable Patient Amnestic to Procedure: Yes Nausea / Vomiting: adequately controlled Pain: adequately controlled Airway Patency, RR, SpO2: stable & adequate BP & HR: stable & adequate Hydration State: stable & adequate Anesthetic Complications: no major complications apparent Notes: patient planned for dispo to ICU. icu team has already evaluated patient in pacu.
--- NOTE | 2019-10-01 18:29 | Billing Data ---
Coding Level of Care Code Critical Care 1st 30-74 mins
[2019-10-01] MEDS: PHENYLEPHRINE HCL 20 MG in DEXTROSE 5% 500 ML IV SCH ×3 (18:51→20:59)
[2019-10-01 19:43] LABS: BUN Creatinine Ratio 6.3 (10-20); Blood Urea Nitrogen 3 mg/dl (7-18); Calcium 8.1 mg/dl (8.5-10.1); Carbon Dioxide 21 mmol/L (21-32); Chloride 102 mmol/L (98-107); Creatinine Clr Calc Pharmacy 158.6 ml/min; Est GFR (African American) > 150.0; Est GFR (Non-African American) 136.3; Glucose 111 mg/dl (70-99); Potassium 4.4 mmol/L (3.5-5.1); Sodium 132 mmol/L (136-145)
[2019-10-01 19:47] LABS: Troponin I < 0.015 ng/ml (0-0.045)
[2019-10-01 19:56] LABS: Hematocrit (blood only) 28.2 % (37-47); Hemoglobin 9.6 g/dL (12.0-16.0); Mean Corpuscular Volume 117.5 fL (80-100); Mean Platelet Volume 11.3 fL (7.4-10.4); Nucleated RBC % (auto) 0.2 %; Platelet Count 401 K/uL (130-400); RDW Standard Deviation 59.6 fL (36.4-46.3); White Blood Count 58.44 K/uL (4.8-10.8)
[2019-10-01] MEDS ORDERED: PHENYLEPHRINE HCL 20 MG in DEXTROSE 5% 500 ML IV SCH (20:00)
[2019-10-01 20:22] LABS: Basophils # (auto) 0.05 K/uL (0-0.2); Basophils % (auto) 0.1 %; Eosinophils # (auto) 0.03 K/uL (0-0.5); Eosinophils % (auto) 0.1 %; Immature Granulocytes # (auto) 2.06 K/uL (0.00-0.02); Immature Granulocytes % (auto) 3.5 %; Lymphocytes # (auto) 1.63 K/uL (1.2-3.4); Lymphocytes % (auto) 2.8 %; Macrocytosis Present; Monocytes # (auto) 2.73 K/uL (0.11-0.59); Monocytes % (auto) 4.7 %; Neutrophils # (auto) 51.94 K/uL (1.4-6.5); Neutrophils % (auto) 88.8 %; Polychromasia 1+
[2019-10-01] MEDS: D5W AND 1/2NSS 1,000 ML IV SCH (22:13)
[2019-10-01] MEDS: ACETAMINOPHEN 1,000 MG/100 ML VIAL IV SCH (22:13)
[2019-10-01] MEDS: METOCLOPRAMIDE HCL INJ 5 MG/ML 2 ML VIAL IV SCH (22:14)
[2019-10-01] MEDS: AMPICILLIN/SULBACTAM SOD 3,000 MG in 0.9 % SODIUM CHLORIDE 100 ML IV SCH (22:15)
[2019-10-01] MEDS: DOCUSATE SODIUM 100 MG CAP PO SCH (22:15)
[2019-10-01] MEDS ORDERED: PHENYLEPHRINE HCL 20 MG in DEXTROSE 5% 500 ML IV PRN (22:30)
[2019-10-01] MEDS ORDERED: IPRATROPIUM BROMIDE NEB SOLN 0.02% 2.5 ML VIAL INH PRN (23:39)
[2019-10-01] MEDS ORDERED: LEVALBUTEROL HCL 0.63 MG/3 ML NEB NEB PRN (23:39)
[2019-10-01] MEDS ORDERED: ICU ELECTROLYTE REPLACEMENT PROTOCOL PRN (23:43)
[2019-10-02] MEDS: ACETAMINOPHEN 1,000 MG/100 ML VIAL IV SCH (02:04)
[2019-10-02] MEDS: AMPICILLIN/SULBACTAM SOD 3,000 MG in 0.9 % SODIUM CHLORIDE 100 ML IV SCH ×4 (02:04→20:45)
[2019-10-02] MEDS: METOCLOPRAMIDE HCL INJ 5 MG/ML 2 ML VIAL IV SCH ×2 (02:56→10:05)
[2019-10-02] MEDS: HYDROmorphone INJ 0.5 MG/0.5 ML SYR IV PRN ×3 (03:00→19:41)
[2019-10-02 05:06] LABS: Hematocrit (blood only) 23.3 % (37-47); Mean Corpuscular Hemoglobin 40.2 pg (25-34); Mean Corpuscular Hgb Conc 34.3 g/dL (32-36); Mean Corpuscular Volume 117.1 fL (80-100); Mean Platelet Volume 11.6 fL (7.4-10.4); Platelet Count 376 K/uL (130-400); RDW Coefficient of Variation 14.2 % (11.5-14.5); RDW Standard Deviation 60.3 fL (36.4-46.3); Red Blood Count 1.99 M/uL (4.2-5.4); White Blood Count 34.12 K/uL (4.8-10.8)
[2019-10-02 05:11] LABS: BUN Creatinine Ratio 3.2 (10-20); Blood Urea Nitrogen 2 mg/dl (7-18); Calcium 7.6 mg/dl (8.5-10.1); Carbon Dioxide 24 mmol/L (21-32); Chloride 103 mmol/L (98-107); Creatinine Clr Calc Pharmacy 155.3 ml/min; Est GFR (African American) > 150.0; Est GFR (Non-African American) 135.4; Glucose 104 mg/dl (70-99); Phosphorus 3.8 mg/dl (2.5-4.9); Sodium 133 mmol/L (136-145)
[2019-10-02 05:16] LABS: Basophils # (auto) 0.04 K/uL (0-0.2); Basophils % (auto) 0.1 %; Eosinophils # (auto) 0.03 K/uL (0-0.5); Eosinophils % (auto) 0.1 %; Immature Granulocytes # (auto) 1.14 K/uL (0.00-0.02); Immature Granulocytes % (auto) 3.3 %; Lymphocytes # (auto) 1.26 K/uL (1.2-3.4); Lymphocytes % (auto) 3.7 %; Macrocytosis Present; Neutrophils # (auto) 29.95 K/uL (1.4-6.5); Neutrophils % (auto) 87.8 %; Polychromasia 1+; Toxic Vacuolation Occasional
[2019-10-02] MEDS ORDERED: VANCOMYCIN TROUGH ONE (05:30)
[2019-10-02] MEDS: D5W AND 1/2NSS 1,000 ML IV SCH (05:33)
[2019-10-02] MEDS: POTASSIUM CHLORIDE 10 MEQ in SODIUM CHLORIDE 0.9% 1000ML 1,000 ML IV SCH (06:22)
[2019-10-02 06:41] LABS: Potassium 4.2 mmol/L (3.5-5.1)
[2019-10-02 06:42] LABS: Magnesium 1.4 mg/dl (1.8-2.4)
--- NOTE | 2019-10-02 07:09 | XRay Report ---
XR chest 1V portable CLINICAL HISTORY: s/p decortication COMPARISON STUDY: 10/01/2019 FINDINGS: The cardiac and mediastinal contours remain stable. There are 2 right-sided chest tubes pre sent. There is no significant pneumothorax. There are persistent extensive right lung airspace opacit ies. Minor left basilar airspace opacities remain similar.[There is right-sided pleural fluid/thicken ing similar to the prior study. There is no significant left pleural effusion. IMPRESSION: Stable findings. Electronically signed by: Mathieu Castillo M.D. 10/02/2019 7:08 AM
[2019-10-02] MEDS: OXYCODONE HCL IR 5 MG TAB (IMMEDIATE RELEASE) PO PRN ×3 (07:45→21:47)
[2019-10-02] MEDS: DOCUSATE SODIUM 100 MG CAP PO SCH ×2 (07:46→20:46)
[2019-10-02] MEDS: MAGNESIUM CHLORIDE 64MG DELAYED REL TAB PO SCH ×2 (07:47→20:47)
[2019-10-02] MEDS: LIDOCAINE 5% 1 PATCH TD SCH ×2 (07:49→07:50)
[2019-10-02] MEDS: FLUOXETINE HCL 20 MG CAP PO SCH (07:49)
[2019-10-02] MEDS: NICOTINE 14 MG/24 HR PATCH TD SCH (07:49)
[2019-10-02] MEDS: ARIPiprazole 5 MG TAB PO SCH (07:49)
[2019-10-02] MEDS: MAGNESIUM SULFATE / D5W 1 GM/100 ML BAG IV SCH ×3 (07:53→09:57)
[2019-10-02] MEDS: ACETAMINOPHEN 325 MG TAB PO SCH ×3 (08:56→20:46)
[2019-10-02] MEDS: MoRPHine SULFATE 2 MG/ML CARP IV PRN ×3 (10:03→17:58)
--- NOTE | 2019-10-02 10:10 | Critical Care Progress Note ---
Date of Service October 02, 2019 Assessment & Plan (1) Admitted to intensive care unit: Reason Critically Ill: 29-year-old female here for recovery status post VATS for for definitive management of pulmonary empyema. Past medical history significant for Alcohol withdrawal, depression, mental health disorder, current tobacco abuse Neuro: -[facility] ICU: NEGATIVE -Mentating well, no concerns at present Cardiac: Hypotension: Resolved Likely secondary to procedure and underlying infection. Will treat infection and provide adequate supportive postoperative care. Respiratory: Right-sided pulmonary abscess: Patient presented to the hospital on 09/26 with sepsis, acute renal failure, hyponatremia, hypokalemia all secondary to aspiration pneumonia from chronic alcohol abuse. She was evaluated by infectious disease and diagnosed with pneumococcal sepsis and a right-sided pulmonary abscess. Initially she was started on Zosyn and subsequently changed to ceftriaxone. She remained on ceftriaxone for 3 days and then was changed to Unasyn which she has been maintained on. Pulmonary medicine was consulted for further evaluation and management, the chest tube was placed yesterday on 09/30 and drained approximately 250 mL of fluid. Subsequent chest x-ray determined that the chest tube was not in the correct location, CT surgery was consulted. CT surgery evaluated the patient and felt that a VATS procedure would be most appropriate to help treat her current infection. She proceeded with the surgery today, had an episode of hypotension requiring pressors intraoperatively, and was tachypneic and hypotensive postoperatively. She was sick subsequently transferred to the ICU for further evaluation and management -Routine postoperative care per CT surgery -WBC ->30.73->24.94->58.44->34.12 Continue IV Unasyn -likely tx to augmentin on d/c -Cultures NGTD PRN O2 as required -intermittently febrile tmax 37.9 GI: -regular Diet RENAL/LYTES: -No significant electrolyte derangement. -Replace lytes as needed. -repleted mag -f/u bmp : - No concerns at this time. ENDO: - No concerns at this time HEME: - Stable H&H. ID: -See Respiratory -Monitor fever curve. INTEGUMENTARY: -no concerns at present LINES/IV ACCESS: -PIVs intact. DVT PROPHYLAXIS: -Currently contraindicated secondary to surgery -SCDs Dispo: Stable for downgrade Thank you for allowing us to be part of this patient's care. Please refer to my attending, Dr. Miller's documentation for any further recommendations. (2) Pulmonary abscess: (3) Empyema of right pleural space: (4) Pleural effusion on right: (5) Pneumococcal sepsis: Supervising Physician Co-Signing Physician Notes Dr. Lopez was the resident-physician during care of patient. I separately evaluated patient for cast portions of the history and the exam. I was present during the critical portion of medical decision making, and I discussed the case with the resident. I generally agree with the findings and plan except for any additions/exceptions noted. Patient is improved status post VATS procedure. Hopefully this will be definitive management. Her lung looks to be inflated and effusion looks to be substantially improved. Dr. Alex removed 1 of the chest tubes today and there is no evidence of air leak in the other chest tube. Continue antibiotics as per infectious disease recommendations. Pain management per thoracic surgery. She is safe to transfer to the floor. Subjective Patient doing well today sitting upright in bed in no acute distress. Patient reports no acute events overnight, she is recently status post removal of 1 of her 2 chest tubes. Patient reports her breathing is doing well, she still endorsing some pain. Otherwise she is voiding, tolerating her diet, stooling, sleeping. No acute concerns at present, all questions answered. Patient stable for downgrade. Physical Exam Physical Exam: General:29-year-old female recovering from anesthesia in no acute distress HEENT: Normocephalic atraumatic Neck: Normal to visual inspection, trachea midline, no thyromegaly Cardiac: Tachycardic otherwise did not appreciate any significant murmurs rubs or gallops, normal S1, normal S2, no significant pedal edema, Respiratory: coarse breath sounds right greater than left, [address] on the right side, rhonchi clear with coughing MSK: Moves all extremities Skin: No concerns at present, numerous tattoos Neuro: Alert and oriented x4 Psych: Calm, cooperative, Results & Data Vital Signs (Past 12 Hours) Vital Signs Pulse Resp BP Pulse Ox 10/02/19 06:45 118 H 17 93 10/02/19 06:35 119 H 29 H 105/72 94 10/02/19 06:30 116 H 26 H 94 10/02/19 06:21 119 H 34 H 105/74 10/02/19 06:15 120 H 30 H 10/02/19 06:05 118 H 33 H 106/67 94 10/02/19 06:02 107 H 41 H 95 10/02/19 05:50 117/70 93 10/02/19 05:45 104 H 20 91 10/02/19 05:35 108 H 23 104/65 92 10/02/19 05:30 103 H 21 91 10/02/19 05:20 103 H 22 116/66 92 10/02/19 05:15 104 H 25 H 92 10/02/19 05:05 109 H 24 104/67 92 10/02/19 05:00 108 H 25 H 94 10/02/19 04:50 113 H 38 H 110/72 92 10/02/19 04:45 110 H 16 93 10/02/19 04:35 111 H 36 H 121/69 92 10/02/19 04:30 126 H 26 H 93 10/02/19 04:21 112 H 25 H 108/69 94 10/02/19 04:15 113 H 26 H 96 10/02/19 04:05 102 H 21 109/68 96 10/02/19 04:00 103 H 20 96 10/02/19 03:50 109 H 21 109/66 96 10/02/19 03:45 107 H 25 H 97 10/02/19 03:35 106 H 28 H 105/69 96 10/02/19 03:30 109 H 21 96 10/02/19 03:20 114 H 29 H 107/63 96 10/02/19 03:15 117 H 32 H 95 10/02/19 03:05 122 H 24 108/68 94 10/02/19 03:00 124 H 38 H 92 10/02/19 02:50 123 H 28 H 113/79 94 10/02/19 02:45 110 H 28 H 95 10/02/19 02:35 114 H 33 H 98/76 L 95 10/02/19 02:30 112 H 30 H 95 10/02/19 02:20 111 H 37 H 111/67 94 10/02/19 02:15 121 H 24 95 10/02/19 02:05 118 H 28 H 106/74 95 10/02/19 02:00 119 H 26 H 95 10/02/19 01:50 117 H 26 H 113/73 94 10/02/19 01:45 117 H 25 H 94 10/02/19 01:35 119 H 21 111/74 94 10/02/19 01:30 114 H 18 93 10/02/19 01:20 115 H 22 112/68 94 10/02/19 01:15 122 H 33 H 94 10/02/19 01:05 109 H 33 H 111/65 94 10/02/19 01:00 112 H 34 H 93 10/02/19 00:50 114 H 45 H 109/61 93 10/02/19 00:45 111 H 26 H 93 10/02/19 00:35 111 H 35 H 104/68 93 10/02/19 00:30 114 H 40 H 93 10/02/19 00:20 115 H 23 113/62 93 10/02/19 00:15 118 H 33 H 92 10/02/19 00:05 120 H 22 105/68 93 10/02/19 00:00 124 H 30 H 92 10/01/19 23:50 125 H 27 H 103/70 92 10/01/19 23:45 126 H 24 92 10/01/19 23:35 127 H 31 H 104/68 92 10/01/19 23:30 127 H 32 H 92 10/01/19 23:20 121 H 24 111/64 93 10/01/19 23:15 125 H 40 H 95 10/01/19 23:05 129 H 30 H 88/74 L 94 10/01/19 23:00 128 H 30 H 94 10/01/19 22:50 129 H 22 105/72 94 10/01/19 22:45 131 H 48 H 94 10/01/19 22:35 132 H 39 H 103/72 94 10/01/19 22:30 131 H 33 H 93 10/01/19 22:20 98/66 L 91 10/01/19 22:15 123 H 27 H 91 Laboratory Results 10/02/19 10/02/19 10/02/19 Range/Units 06:07 04:09 04:09 WBC 34.12 H* D (4.8-10.8) K/uL RBC 1.99 L (4.2-5.4) M/uL Hgb 8.0 L (12.0-16.0) g/dL Hct 23.3 L (37-47) % MCV 117.1 H (80-100) fL MCH 40.2 H (25-34) pg MCHC 34.3 (32-36) g/dL RDW Std Deviation 60.3 H (36.4-46.3) fL RDW Coeff of Vinod 14.2 (11.5-14.5) % Plt Count 376 (130-400) K/uL MPV 11.6 H (7.4-10.4) fL Immature Gran % (Auto) 3.3 % Neut % (Auto) 87.8 % Lymph % (Auto) 3.7 % Hawkins % (Auto) 5.0 % Eos % (Auto) 0.1 % Baso % (Auto) 0.1 % Immature Gran # (Auto) 1.14 H (0.00-0.02) K/uL Neut # (Auto) 29.95 H (1.4-6.5) K/uL Lymph # (Auto) 1.26 (1.2-3.4) K/uL Hawkins # (Auto) 1.70 H (0.11-0.59) K/uL Eos # (Auto) 0.03 (0-0.5) K/uL Baso # (Auto) 0.04 (0-0.2) K/uL Absolute Nucleated RBC (0-0) K/uL Nucleated RBC % (auto) % Toxic Vacuolation Occasional Polychromasia 1+ Macrocytosis Present Sodium 133 L (136-145) mmol/L Potassium 4.2 (3.5-5.1) mmol/L Chloride 103 (98-107) mmol/L Carbon Dioxide 24 (21-32) mmol/L Anion Gap 6.0 (3-11) BUN 2 L (7-18) mg/dl Creatinine 0.47 L (0.6-1.2) mg/dl Est Cr Clr Drug Dosing 155.3 ml/min Est GFR ( Amer) > 150.0 Est GFR (Non-Af Amer) 135.4 BUN/Creatinine Ratio 3.2 L (10-20) Glucose 104 H (70-99) mg/dl Lactate (0.4-2.0) mmol/L Calcium 7.6 L (8.5-10.1) mg/dl Phosphorus 3.8 (2.5-4.9) mg/dl Magnesium 1.4 L (1.8-2.4) mg/dl Troponin I (0-0.045) ng/ml Nasal Screen MRSA (PCR) (Negative) 10/01/19 10/01/19 10/01/19 Range/Units 19:10 19:10 19:10 WBC 58.44 H* D (4.8-10.8) K/uL RBC 2.40 L (4.2-5.4) M/uL Hgb 9.6 L (12.0-16.0) g/dL Hct 28.2 L (37-47) % MCV 117.5 H (80-100) fL MCH 40.0 H (25-34) pg MCHC 34.0 (32-36) g/dL RDW Std Deviation 59.6 H (36.4-46.3) fL RDW Coeff of Vinod 14.0 (11.5-14.5) % Plt Count 401 H (130-400) K/uL MPV 11.3 H (7.4-10.4) fL Immature Gran % (Auto) 3.5 % Neut % (Auto) 88.8 % Lymph % (Auto) 2.8 % Hawkins % (Auto) 4.7 % Eos % (Auto) 0.1 % Baso % (Auto) 0.1 % Immature Gran # (Auto) 2.06 H (0.00-0.02) K/uL Neut # (Auto) 51.94 H (1.4-6.5) K/uL Lymph # (Auto) 1.63 (1.2-3.4) K/uL Hawkins # (Auto) 2.73 H (0.11-0.59) K/uL Eos # (Auto) 0.03 (0-0.5) K/uL Baso # (Auto) 0.05 (0-0.2) K/uL Absolute Nucleated RBC 0.10 H (0-0) K/uL Nucleated RBC % (auto) 0.2 % Toxic Vacuolation Polychromasia 1+ Macrocytosis Present Sodium 132 L (136-145) mmol/L Potassium 4.4 (3.5-5.1) mmol/L Chloride 102 (98-107) mmol/L Carbon Dioxide 21 (21-32) mmol/L Anion Gap 9.0 (3-11) BUN 3 L (7-18) mg/dl Creatinine 0.46 L (0.6-1.2) mg/dl Est Cr Clr Drug Dosing 158.6 ml/min Est GFR ( Amer) > 150.0 Est GFR (Non-Af Amer) 136.3 BUN/Creatinine Ratio 6.3 L (10-20) Glucose 111 H (70-99) mg/dl Lactate 1.8 (0.4-2.0) mmol/L Calcium 8.1 L (8.5-10.1) mg/dl Phosphorus (2.5-4.9) mg/dl Magnesium (1.8-2.4) mg/dl Troponin I < 0.015 (0-0.045) ng/ml Nasal Screen MRSA (PCR) (Negative) 10/01/19 Range/Units 18:35 WBC (4.8-10.8) K/uL RBC (4.2-5.4) M/uL Hgb (12.0-16.0) g/dL Hct (37-47) % MCV (80-100) fL MCH (25-34) pg MCHC (32-36) g/dL RDW Std Deviation (36.4-46.3) fL RDW Coeff of Vinod (11.5-14.5) % Plt Count (130-400) K/uL MPV (7.4-10.4) fL Immature Gran % (Auto) % Neut % (Auto) % Lymph % (Auto) % Hawkins % (Auto) % Eos % (Auto) % Baso % (Auto) % Immature Gran # (Auto) (0.00-0.02) K/uL Neut # (Auto) (1.4-6.5) K/uL Lymph # (Auto) (1.2-3.4) K/uL Hawkins # (Auto) (0.11-0.59) K/uL Eos # (Auto) (0-0.5) K/uL Baso # (Auto) (0-0.2) K/uL Absolute Nucleated RBC (0-0) K/uL Nucleated RBC % (auto) % Toxic Vacuolation Polychromasia Macrocytosis Sodium (136-145) mmol/L Potassium (3.5-5.1) mmol/L Chloride (98-107) mmol/L Carbon Dioxide (21-32) mmol/L Anion Gap (3-11) BUN (7-18) mg/dl Creatinine (0.6-1.2) mg/dl Est Cr Clr Drug Dosing ml/min Est GFR ( Amer) Est GFR (Non-Af Amer) BUN/Creatinine Ratio (10-20) Glucose (70-99) mg/dl Lactate (0.4-2.0) mmol/L Calcium (8.5-10.1) mg/dl Phosphorus (2.5-4.9) mg/dl Magnesium (1.8-2.4) mg/dl Troponin I (0-0.045) ng/ml Nasal Screen MRSA (PCR) Negative (Negative) Medications Administered Current Inpatient Medications Acetaminophen (Tylenol) 650 mg PO Q6H [facility] Stop: 11/01/19 08:14 Last Admin: 10/02/19 08:56 Dose: 650 mg Documented by: Aripiprazole (Abilify) 5 mg PO DAILY [facility] Stop: 10/26/19 08:59 Last Admin: 10/02/19 07:49 Dose: 5 mg Documented by: Cyclobenzaprine HCl (Flexeril) 5 mg PO BID PRN PRN Reason: Muscle Spasm Stop: 10/28/19 10:14 Last Admin: 10/01/19 08:20 Dose: 5 mg Documented by: Docusate Sodium (Colace) 100 mg PO BID [facility] Stop: 10/31/19 20:59 Last Admin: 10/02/19 07:46 Dose: 100 mg Documented by: Fluoxetine HCl (Prozac) 60 mg PO DAILY [facility] Stop: 10/27/19 09:14 Last Admin: 10/02/19 07:49 Dose: 60 mg Documented by: Lorazepam (Ativan) 1 mg in 2 mls @ 0.5 mls/min IV Q10M PRN PRN Reason: seizures Stop: 10/26/19 00:26 Lorazepam (Ativan) 0.5 mg in 1 mls @ 1 mls/min IV Q4H PRN PRN Reason: Anxiety/Agitation Stop: 10/26/19 02:28 Promethazine HCl 12.5 mg/ (Sodium Chloride) 50.5 mls @ 202 mls/hr IV Q6H PRN PRN Reason: Nausea And Vomiting Stop: 10/26/19 02:28 Potassium Chloride 10 meq/ (Sodium Chloride) 1,005 mls @ 75 mls/hr IV .[id number] [facility] Stop: 10/31/19 01:29 Last Infusion: 10/02/19 09:57 Dose: Infused Documented by: Ampicillin Sodium/Sulbactam Sodium 3,000 mg/ Sodium Chloride 108 mls @ 200 mls/hr IV Q6H [facility]; Protocol Stop: 10/08/19 13:59 Last Infusion: 10/02/19 08:45 Dose: Infused Documented by: Ioversol (Optiray 320 100ml) 100 ml IV ONCE PRN PRN Reason: Interaction Checking Stop: 10/04/19 04:49 Last Admin: 09/30/19 04:50 Dose: 92 ml Documented by: Ipratropium [place] (Atrovent 0.02% 0.5mg/2.5ml) 0.5 mg INH Q6R PRN PRN Reason: Shortness Of Breath Or Wheezing Stop: 10/26/19 09:29 Levalbuterol HCl (Xopenex 0.63 Mg/3 Ml Neb) 0.63 mg NEB Q6R PRN PRN Reason: Shortness Of Breath Or Wheezing Stop: 10/26/19 09:29 Lidocaine ([facility]oderm 5%) [facility] Stop: 10/28/19 09:59 Last Admin: 10/02/19 07:49 Dose: Not Given Documented by: Lidocaine (Lidoderm 5%) 1 patch [facility] Stop: 10/30/19 08:59 Last Admin: 10/02/19 07:50 Dose: Not Given Documented by: Magnesium Chloride (Slow-Mag) 64 mg PO BID [facility] Stop: 10/29/19 08:59 Last Admin: 10/02/19 07:47 Dose: 64 mg Documented by: Miscellaneous (Remove Nicoderm Patch) 1 ea N/A DAILY@0859 [facility] Stop: 10/26/19 08:58 Last Admin: 10/02/19 07:51 Dose: Not Given Documented by: Miscellaneous (Remove Lidoderm Patch) 1 ea N/A DAILY@2100 [facility] Stop: 10/28/19 20:59 Last Admin: 10/01/19 22:16 Dose: 1 ea Documented by: Miscellaneous (Remove Lidoderm Patch) 1 ea N/A DAILY@2100 [facility] Stop: 10/30/19 20:59 Last Admin: 10/01/19 22:16 Dose: 1 ea Documented by: Miscellaneous (Icu Electrolyte Replacement Protocol) 1 ea N/A UD PRN PRN Reason: for e-lyte repletion Stop: 10/08/19 23:42 Morphine Sulfate (Morphine Sulfate) 1 - 2 mg IV Q1H PRN PRN Reason: Pain Stop: 10/15/19 18:37 Last Admin: 10/02/19 10:03 Dose: 1 mg Documented by: Nicotine (Nicoderm Cq) 14 mg TD QAM [facility] Stop: 10/26/19 03:39 Last Admin: 10/02/19 07:49 Dose: Not Given Documented by: Ondansetron HCl (Zofran) 4 mg IV Q4H PRN PRN Reason: Nausea And Vomiting Stop: 10/31/19 18:37 Oxycodone HCl (Roxicodone Immediate Rel) 5 mg PO Q4H PRN PRN Reason: Pain Stop: 10/10/19 02:28 Last Admin: 10/02/19 07:45 Dose: 5 mg Documented by: Resident Activity Tracking Resident Involvement: Resident Care Provided Care Provided: Adult Hospital Medicine (ICU) (1) Pulmonary abscess Laterality: right Lung location: unspecified part of lung Pulmonary abscess pneumonia presence: with pneumonia Qualified Code(s): J85.1 - Abscess of lung with pneumonia
--- NOTE | 2019-10-02 10:52 | Infectious Disease Progress Nt ---
Date of Service October 02, 2019 Assessment & Plan (1) Pneumococcal sepsis: will continue unasyn, follow OR cultures. will follow. continue IV abx for now, willamdebra transition to po Augmentin at discharge. (2) Pneumonia: Subjective pt seen in followup, s/p VATS, now in ICU. family at bedside. doing well. states she has min pain, no f/c. no abd pain, no n/v/d. min discomfort at chest tube insertion. afebrile. tolerating abx. 09/30 fluid cultures negative, 10/01 cultures pending. Repeat blood cultures negative. Review of Systems Review of Systems: All systems reviewed & are unremarkable except as noted in HPI & below Physical Exam Constitutional: WD/WN, vitals as above Eyes: PERRL, conjunctivae normal, anicteric sclerae ENMT: external ear and nose normal, oropharynx normal Neck: normal visual inspection Respiratory: Auscultation: + diminished lung sounds and + rhonchi Cardiovascular: RRR, no murmur, no edema Gastrointestinal (Abdomen): normal bowel sounds, soft, nontender, no hepatosplenomegaly Musculoskeletal: no cyanosis or clubbing, extremities motor strength 5/5 Skin: no rashes, warm and dry Psychiatric: A+Ox3, euthymic affect Results & Data Vital Signs (Past 12 Hours) Vital Signs Pulse Resp BP Pulse Ox 10/02/19 06:45 118 H 17 93 10/02/19 06:35 119 H 29 H 105/72 94 10/02/19 06:30 116 H 26 H 94 10/02/19 06:21 119 H 34 H 105/74 10/02/19 06:15 120 H 30 H 10/02/19 06:05 118 H 33 H 106/67 94 10/02/19 06:02 107 H 41 H 95 10/02/19 05:50 117/70 93 10/02/19 05:45 104 H 20 91 10/02/19 05:35 108 H 23 104/65 92 10/02/19 05:30 103 H 21 91 10/02/19 05:20 103 H 22 116/66 92 10/02/19 05:15 104 H 25 H 92 10/02/19 05:05 109 H 24 104/67 92 10/02/19 05:00 108 H 25 H 94 10/02/19 04:50 113 H 38 H 110/72 92 10/02/19 04:45 110 H 16 93 10/02/19 04:35 111 H 36 H 121/69 92 10/02/19 04:30 126 H 26 H 93 10/02/19 04:21 112 H 25 H 108/69 94 10/02/19 04:15 113 H 26 H 96 10/02/19 04:05 102 H 21 109/68 96 10/02/19 04:00 103 H 20 96 10/02/19 03:50 109 H 21 109/66 96 10/02/19 03:45 107 H 25 H 97 10/02/19 03:35 106 H 28 H 105/69 96 10/02/19 03:30 109 H 21 96 10/02/19 03:20 114 H 29 H 107/63 96 10/02/19 03:15 117 H 32 H 95 10/02/19 03:05 122 H 24 108/68 94 10/02/19 03:00 124 H 38 H 92 10/02/19 02:50 123 H 28 H 113/79 94 10/02/19 02:45 110 H 28 H 95 10/02/19 02:35 114 H 33 H 98/76 L 95 10/02/19 02:30 112 H 30 H 95 10/02/19 02:20 111 H 37 H 111/67 94 10/02/19 02:15 121 H 24 95 10/02/19 02:05 118 H 28 H 106/74 95 10/02/19 02:00 119 H 26 H 95 10/02/19 01:50 117 H 26 H 113/73 94 10/02/19 01:45 117 H 25 H 94 10/02/19 01:35 119 H 21 111/74 94 10/02/19 01:30 114 H 18 93 10/02/19 01:20 115 H 22 112/68 94 10/02/19 01:15 122 H 33 H 94 10/02/19 01:05 109 H 33 H 111/65 94 10/02/19 01:00 112 H 34 H 93 10/02/19 00:50 114 H 45 H 109/61 93 10/02/19 00:45 111 H 26 H 93 10/02/19 00:35 111 H 35 H 104/68 93 10/02/19 00:30 114 H 40 H 93 10/02/19 00:20 115 H 23 113/62 93 10/02/19 00:15 118 H 33 H 92 10/02/19 00:05 120 H 22 105/68 93 10/02/19 00:00 124 H 30 H 92 10/01/19 23:50 125 H 27 H 103/70 92 10/01/19 23:45 126 H 24 92 10/01/19 23:35 127 H 31 H 104/68 92 10/01/19 23:30 127 H 32 H 92 10/01/19 23:20 121 H 24 111/64 93 10/01/19 23:15 125 H 40 H 95 10/01/19 23:05 129 H 30 H 88/74 L 94 10/01/19 23:00 128 H 30 H 94 10/01/19 22:50 129 H 22 105/72 94 Laboratory Results Microbiology 09/30/19 15:05 Pleural Fluid Acid Fast Bacilli Smear - Final 10/01/19 14:47 Pleural Fluid Fungal Smear - Final 10/01/19 14:51 Pleural Fluid Fungal Smear - Final 09/30/19 02:26 Blood Aerobic Blood Culture - Preliminary No growth in Aerobic bottle after 48 hours. 09/30/19 02:26 Blood Anaerobic Blood Culture - Final 09/30/19 02:26 Blood Aerobic Blood Culture - Preliminary No growth in Aerobic bottle after 48 hours. 09/30/19 02:26 Blood Anaerobic Blood Culture - Preliminary No growth in Anaerobic bottle after 48 hours. 10/01/19 Unknown Lung,Right Gram Stain - Final 10/01/19 Unknown Lung,Right Gram Stain - Final 10/01/19 Unknown Lung,Right Gram Stain - Final 10/01/19 14:51 Pleural Fluid Gram Stain - Final 10/01/19 14:47 Pleural Fluid Gram Stain - Final 09/30/19 15:05 Pleural Fluid Gram Stain - Final 09/30/19 15:05 Pleural Fluid Aerobic and Anaerobic Culture - Preliminary No growth to date. 09/26/19 09:15 Sputum, Expectorated Gram Stain - Final 09/26/19 09:15 Sputum, Expectorated Sputum Culture - Final Streptococcus pneumoniae 09/26/19 00:14 Blood Aerobic Blood Culture - Final Streptococcus pneumoniae 09/26/19 00:14 Blood Anaerobic Blood Culture - Final Streptococcus pneumoniae 09/25/19 23:40 Blood Aerobic Blood Culture - Final Streptococcus pneumoniae 09/25/19 23:40 Blood Anaerobic Blood Culture - Final Streptococcus pneumoniae 09/25/19 21:10 Urine,Clean Catch Urine Culture - Final Lactobacillus species PG Care Time/CCT Total # of Minutes Spent Total Time Spent with Patient: Total time spent is greater than 50% in coordination of care (as documented) at patient's floor/unit and/or counseling patient: (1) Pneumonia Laterality: right Lung location: upper lobe of lung Pneumonia type: due to unspecified organism Qualified Code(s): J18.9 - Pneumonia, unspecified organism
--- NOTE | 2019-10-02 11:54 | Surgery Progress Note ---
Date of Service October 02, 2019 Assessment & Plan (1) Status post lung surgery: Present on Admission?: No (2) Empyema of right pleural space: Present on Admission?: Yes (3) Pneumococcal sepsis: The patient is improving. She still has significant infiltratives in her right upper lobe. She probably has an abscess. We will continue to push on with the antibiotics. We removed her right apical chest tube and will transfer out of the unit. Present on Admission?: Yes Subjective Patient feels "better." She is on room air. She sitting up in a chair. We removed her right apical chest tubes she has no air leak and minimal drainage from this. She does have some serous drainage from her right angle chest tube along her diaphragm posteriorly. She is moving air much better. Her heart rate is down. She is made excellent urine. Does like Dilaudid. Her pain is well controlled. Physical Exam Physical Exam: Her right lung field is much improved. She does not appear toxic like she did yesterday. She has no peripheral edema. Neurologically she is much more relaxed and looks better. Results & Data Vital Signs (Past 12 Hours) Vital Signs Pulse Resp BP Pulse Ox 10/02/19 11:06 98 H 29 H 123/65 10/02/19 11:00 114 H 10/02/19 10:06 106 H 29 H 120/78 10/02/19 09:06 109 H 33 H 124/76 10/02/19 08:21 114 H 35 H 128/82 10/02/19 08:00 106 H 21 10/02/19 07:36 114 H 26 H 95/77 L 10/02/19 07:15 108 H 37 H 10/02/19 07:11 115 H 22 113/75 10/02/19 06:45 118 H 17 93 10/02/19 06:35 119 H 29 H 105/72 94 10/02/19 06:30 116 H 26 H 94 10/02/19 06:21 119 H 34 H 105/74 10/02/19 06:15 120 H 30 H 10/02/19 06:05 118 H 33 H 106/67 94 10/02/19 06:02 107 H 41 H 95 10/02/19 05:50 117/70 93 10/02/19 05:45 104 H 20 91 10/02/19 05:35 108 H 23 104/65 92 10/02/19 05:30 103 H 21 91 10/02/19 05:20 103 H 22 116/66 92 10/02/19 05:15 104 H 25 H 92 10/02/19 05:05 109 H 24 104/67 92 10/02/19 05:00 108 H 25 H 94 10/02/19 04:50 113 H 38 H 110/72 92 10/02/19 04:45 110 H 16 93 10/02/19 04:35 111 H 36 H 121/69 92 10/02/19 04:30 126 H 26 H 93 10/02/19 04:21 112 H 25 H 108/69 94 10/02/19 04:15 113 H 26 H 96 10/02/19 04:05 102 H 21 109/68 96 10/02/19 04:00 103 H 20 96 10/02/19 03:50 109 H 21 109/66 96 10/02/19 03:45 107 H 25 H 97 10/02/19 03:35 106 H 28 H 105/69 96 10/02/19 03:30 109 H 21 96 10/02/19 03:20 114 H 29 H 107/63 96 10/02/19 03:15 117 H 32 H 95 10/02/19 03:05 122 H 24 108/68 94 10/02/19 03:00 124 H 38 H 92 10/02/19 02:50 123 H 28 H 113/79 94 10/02/19 02:45 110 H 28 H 95 10/02/19 02:35 114 H 33 H 98/76 L 95 10/02/19 02:30 112 H 30 H 95 10/02/19 02:20 111 H 37 H 111/67 94 10/02/19 02:15 121 H 24 95 10/02/19 02:05 118 H 28 H 106/74 95 10/02/19 02:00 119 H 26 H 95 10/02/19 01:50 117 H 26 H 113/73 94 10/02/19 01:45 117 H 25 H 94 10/02/19 01:35 119 H 21 111/74 94 10/02/19 01:30 114 H 18 93 10/02/19 01:20 115 H 22 112/68 94 10/02/19 01:15 122 H 33 H 94 10/02/19 01:05 109 H 33 H 111/65 94 10/02/19 01:00 112 H 34 H 93 10/02/19 00:50 114 H 45 H 109/61 93 10/02/19 00:45 111 H 26 H 93 10/02/19 00:35 111 H 35 H 104/68 93 10/02/19 00:30 114 H 40 H 93 10/02/19 00:20 115 H 23 113/62 93 10/02/19 00:15 118 H 33 H 92 10/02/19 00:05 120 H 22 105/68 93 10/02/19 00:00 124 H 30 H 92 PG Care Time/CCT Total # of Minutes Spent Total Time Spent with Patient: Total time spent is greater than 50% in coordination of care (as documented) at patient's floor/unit and/or counseling patient:
--- NOTE | 2019-10-02 15:18 | Hospitalist Progress Note ---
Date of Service October 02, 2019 Assessment & Plan (1) Severe sepsis: (1) Severe sepsis: SEVERE SEPSIS SECONDARY TO PNEUMONIA- POSSIBLE COMMUNITY ACQUIRED, ASPIRATION FROM EMESIS Strep BACTEREMIA Blood cultures: (+) for strep pneumonia Urine culture: Negative Sputum culture: Moderate normal arlet CT chest: RUL pneumonia, no abscess Repeat CT chest 09/30/2019: 1. Interval insertion of a right-sided pleural pigtail catheter. The pigtail is not fully within the pleural space as it surrounds the right ribs. The proximal sidehole is extrathoracic. 2. Small amount of subcutaneous emphysema on the right 3. A moderate loculated right pleural effusion persists 4. Persistent extensive right lung consolidation 5. Small left pleural effusion In light of possible empyema, ID on board, cont on IV Unasyn Pulmonary consulted, pigtail chest tube placed 09/30/2019, Was removed accidentally Thoracic surgery Dr. Ramirez consulted,appreciate input S/p VATS on 10/01/19 Follow-up cultures ACUTE RENAL FAILURE resolved likely Prerenal, ATN from Sepsis Nephro consulted Renal US: no obstruction Cr back to baseline HYPONATREMIA appropriately corrected HYPOKALEMIA likely from emesis, poor intake Replaced SEIZURE EPISODES happened mid-August after patient abstained from alcohol Neurologist consulted, EEG performed Likely secondary to withdrawal seizures HISTORY OF ALCOHOLISM last drink was in mid-August, alcohol level normal no overt signs of withdrawal IV Ativan per [facility] protocol D/christiana ABNORMAL LIVER ULTRASOUND 1. Mild gallbladder distention is noted along with mild degree of layering sludge. No cholelithiasis or sonographic evidence of acute cholecystitis. 2. No biliary ductal dilation. 3. Increased echogenicity of the liver suggests hepatic steatosis. -- LFTs ok monitor as outpatient THROMBOCYTOPENIA likely from Sepsis, Alcoholism no signs of bleeding improving RIGHT SUBCONJUNCTIVAL HEMORRHAGE sustained after falling, during apparent seizure episode last month no vision problems, hemorrhage improving as per patient LEFT SHOULDER/ COLLAR BONE AREA PAIN Clavicle or shoulder xray: no fracture Rib xray no acute fractures CT shoulder: No fracture Lidoderm patch, Flexeril PRN HYPOMAGNESEMIA likely from Alcoholism replace with PO and IV Mg DVT prophylaxis SCDs, early ambulation for now in light of procedures-evaluate, discussed with surgeon Disposition patient declining Alcohol rehab ordered for PT/OT OOB as tolerated stable to be transferred out of ICU Subjective complains of pain at the chest tube site having non productive cough , making the pain worse asking for PRN dilaudid ( helps better ) than Morphine no fever or chills Physical Exam Constitutional: WD/WN, vitals as above well developed and well nourished; no acute distress Eyes: + conjunctival abnormality (conjunctival hge noted on rt eye ) Neck: trachea midline, no thyromegaly normal visual inspection; no nuchal rigidity Respiratory: normal respiratory effort; no respiratory distress and not tachypneic Auscultation: + diminished lung sounds, + rales and + rhonchi Cardiovascular: RRR, no murmur, no edema Rate/Rhythm: regular rate, regular rhythm and + tachycardic Heart Sounds: no gallop and no cardiac rub Extremities: no edema Gastrointestinal (Abdomen): normal bowel sounds, soft, nontender, no hepatosplenomegaly Inspection/Auscultation: normal bowel sounds Percussion/Palpation: abdomen soft; abdomen nontender Musculoskeletal: no cyanosis or clubbing, extremities motor strength 5/5 Head/Neck/Chest: neck supple Extremities: strength 5/5 throughout Skin: no rashes, warm and dry Trauma: + periorbital ecchymosis Neurologic: moves all extremities and awake; no meningeal signs Psychiatric: A+Ox3, euthymic affect Orientation: alert and oriented x 3 Eye Contact: good eye contact Affect: + anxious affect Results & Data Vital Signs (Past 12 Hours) Vital Signs Pulse Resp BP Pulse Ox 10/02/19 14:06 113 H 23 135/82 10/02/19 13:06 102 H 22 122/76 10/02/19 12:06 114 H 26 H 126/76 10/02/19 12:00 113 H 20 10/02/19 11:06 98 H 29 H 123/65 10/02/19 11:00 114 H 10/02/19 10:06 106 H 29 H 120/78 10/02/19 09:06 109 H 33 H 124/76 10/02/19 08:21 114 H 35 H 128/82 10/02/19 08:00 106 H 21 10/02/19 07:36 114 H 26 H 95/77 L 10/02/19 07:15 108 H 37 H 10/02/19 07:11 115 H 22 113/75 10/02/19 06:45 118 H 17 93 10/02/19 06:35 119 H 29 H 105/72 94 10/02/19 06:30 116 H 26 H 94 10/02/19 06:21 119 H 34 H 105/74 10/02/19 06:15 120 H 30 H 10/02/19 06:05 118 H 33 H 106/67 94 10/02/19 06:02 107 H 41 H 95 10/02/19 05:50 117/70 93 10/02/19 05:45 104 H 20 91 10/02/19 05:35 108 H 23 104/65 92 10/02/19 05:30 103 H 21 91 10/02/19 05:20 103 H 22 116/66 92 10/02/19 05:15 104 H 25 H 92 10/02/19 05:05 109 H 24 104/67 92 10/02/19 05:00 108 H 25 H 94 10/02/19 04:50 113 H 38 H 110/72 92 10/02/19 04:45 110 H 16 93 10/02/19 04:35 111 H 36 H 121/69 92 10/02/19 04:30 126 H 26 H 93 10/02/19 04:21 112 H 25 H 108/69 94 10/02/19 04:15 113 H 26 H 96 10/02/19 04:05 102 H 21 109/68 96 10/02/19 04:00 103 H 20 96 10/02/19 03:50 109 H 21 109/66 96 10/02/19 03:45 107 H 25 H 97 10/02/19 03:35 106 H 28 H 105/69 96 10/02/19 03:30 109 H 21 96 10/02/19 03:20 114 H 29 H 107/63 96
--- NOTE | 2019-10-02 16:07 | Billing Data ---
Coding Level of Care Code 87946 Subseq Hosp Care Lvl 3
[2019-10-02] MEDS: BENZONATATE 100 MG CAPSULE PO PRN (20:45)
[2019-10-03] MEDS: HYDROmorphone INJ 0.5 MG/0.5 ML SYR IV PRN ×5 (00:27→22:53)
[2019-10-03] MEDS: AMPICILLIN/SULBACTAM SOD 3,000 MG in 0.9 % SODIUM CHLORIDE 100 ML IV SCH ×4 (02:13→19:59)
[2019-10-03] MEDS: ACETAMINOPHEN 325 MG TAB PO SCH ×4 (02:14→20:45)
[2019-10-03 06:07] LABS: Hemoglobin 7.1 g/dL (12.0-16.0); Mean Corpuscular Hemoglobin 39.7 pg (25-34); Mean Corpuscular Hgb Conc 33.8 g/dL (32-36); Mean Corpuscular Volume 117.3 fL (80-100); Mean Platelet Volume 10.8 fL (7.4-10.4); Platelet Count 426 K/uL (130-400); RDW Coefficient of Variation 14.2 % (11.5-14.5); RDW Standard Deviation 60.4 fL (36.4-46.3); Red Blood Count 1.79 M/uL (4.2-5.4); White Blood Count 14.97 K/uL (4.8-10.8)
[2019-10-03 06:43] LABS: Blood Urea Nitrogen 2 mg/dl (7-18); Calcium 7.7 mg/dl (8.5-10.1); Carbon Dioxide 26 mmol/L (21-32); Chloride 106 mmol/L (98-107); Creatinine Clr Calc Pharmacy 158.6 ml/min; Est GFR (African American) > 150.0; Est GFR (Non-African American) 136.3; Glucose 73 mg/dl (70-99); Magnesium 1.6 mg/dl (1.8-2.4); Phosphorus 4.1 mg/dl (2.5-4.9); Potassium 3.2 mmol/L (3.5-5.1); Sodium 138 mmol/L (136-145)
--- NOTE | 2019-10-03 06:53 | XRay Report ---
XR chest 1V portable CLINICAL HISTORY: empyema COMPARISON STUDY: 10/02/2019 FINDINGS: One of the 2 right-sided chest tubes has been removed. The cardiac and mediastinal contours remain stable. There are persistent extensive right lung airspace opacities and areas of suspected p leural thickening. Small cystic spaces within the right upper lung zone could represent areas of pare nchymal cavitation. There are resolving left basilar airspace opacities. There is minor blunting of t he left lateral costophrenic angle.[ IMPRESSION: 1. Interval removal of one of the 2 right-sided chest tubes. No evidence of pneumothorax. 2. Persistent extensive right lung airspace opacities. Small cystic spaces within the right upper angelina g zone could represent areas of parenchymal cavitation. Electronically signed by: Mathieu Castillo M.D. 10/03/2019 6:52 AM
[2019-10-03 07:00] LABS: Basophils # (auto) 0.02 K/uL (0-0.2); Basophils % (auto) 0.1 %; Eosinophils # (auto) 0.07 K/uL (0-0.5); Eosinophils % (auto) 0.5 %; Immature Granulocytes # (auto) 0.31 K/uL (0.00-0.02); Immature Granulocytes % (auto) 2.1 %; Lymphocytes # (auto) 1.48 K/uL (1.2-3.4); Lymphocytes % (auto) 9.9 %; Monocytes # (auto) 1.11 K/uL (0.11-0.59); Monocytes % (auto) 7.4 %; Neutrophils # (auto) 11.98 K/uL (1.4-6.5)
[2019-10-03 07:03] LABS: Macrocytosis Present; Polychromasia 1+
[2019-10-03] MEDS: BENZONATATE 100 MG CAPSULE PO PRN ×2 (08:14→20:43)
[2019-10-03] MEDS: FLUOXETINE HCL 20 MG CAP PO SCH (08:15)
[2019-10-03] MEDS: DOCUSATE SODIUM 100 MG CAP PO SCH ×2 (08:15→20:45)
[2019-10-03] MEDS: NICOTINE 14 MG/24 HR PATCH TD SCH (08:15)
[2019-10-03] MEDS: MAGNESIUM CHLORIDE 64MG DELAYED REL TAB PO SCH ×2 (08:15→20:43)
[2019-10-03] MEDS: ARIPiprazole 5 MG TAB PO SCH (08:15)
[2019-10-03] MEDS: POLYETHYLENE (MIRALAX) 17 GM PACK PO SCH (08:16)
[2019-10-03] MEDS: LIDOCAINE 5% 1 PATCH TD SCH ×2 (08:16)
[2019-10-03] MEDS: OXYCODONE HCL IR 5 MG TAB (IMMEDIATE RELEASE) PO PRN ×2 (08:52→19:58)
[2019-10-03] MEDS ORDERED: POTASSIUM CHLORIDE 20 MEQ TABCR PO ONE (09:00)
[2019-10-03] MEDS ORDERED: ENOXAPARIN INJ 40 MG/0.4 ML SYR SQ SCH (09:00)
[2019-10-03 09:05] LABS: Hematocrit (blood only) 21.4 % (37-47); Hemoglobin 7.3 g/dL (12.0-16.0)
--- NOTE | 2019-10-03 09:27 | CT Scan Report ---
CT chest wo con CLINICAL HISTORY: 29 years-old Female presenting with ? lung abscess; hx. of empyema. TECHNIQUE: Multidetector CT imaging of the chest was performed without the use of intravenous contras t. IV contrast: None. One or more dose lowering techniques were used consistent with the principles o f ALARA (as low as reasonably achievable), including automatic exposure control, mA or kV adjustment to individual patient size, and/or use of iterative reconstruction. COMPARISON: 09/30/2019. CT DOSE (mGy.cm): The estimated cumulative dose is 223.09 mGy.cm. FINDINGS: Technical Customer Support Specialist topogram: Right pleural drain in place. Soft tissues: Large bore right pleural drain positioned in the posterior costophrenic sulcus on the r ight. Mild associated soft tissue emphysema along the right lateral chest wall. Normal thyroid and th oracic inlet. Scattered prominent mediastinal lymph nodes likely reactive. Evaluation of the nickie mccarty ited in the absence of intravenous contrast. Normal aorta. Normal heart size. Trace bilateral pleural fluid. This represents significant interval decrease in pleural fluid on the right in comparison to prior. No pericardial effusion. Hepatic steatosis. Lungs and airways: Trace scattered right pneumothorax. Significant pleural thickening on the right. C avitary change within the right upper lobe at the site of prior dense consolidation consistent with n ecrosis and developing abscess formation. Surrounding consolidation in the residual aerated portion o f the right upper lobe. Lesser degree of consolidation in the right middle lobe. Primarily bandlike o pacities in the right lower lobe. Significantly improved aeration of the right middle and lower lobes with clearance of prior consolidation. Interlobular septal thickening in the right middle and lower lobes. Bandlike opacity at the left lung base likely atelectasis. No evidence for a developing left l surjit infiltrate. Musculoskeletal: Normal osseous structures. IMPRESSION: 1. Necrosis and developing abscess formation in the right upper lobe with surrounding persistent con solidation. 2. Significant interval improved aeration and clearance of prior consolidation in the right middle a nd right lower lobes. 3. Significant interval decrease in right pleural effusion status post placement of the right pleura l drain. 4. Trace right hydropneumothorax. Significant pleural thickening consistent with the history of empy carols. 5. Trace left pleural effusion. No left lung consolidation apart from minimal left basilar atelectas is. Electronically signed by: Roman Simmons M.D. 10/03/2019 9:26 AM
--- NOTE | 2019-10-03 10:14 | Infectious Disease Progress Nt ---
Date of Service October 03, 2019 Assessment & Plan (1) Pneumococcal sepsis: will continue unasyn, follow OR cultures. will follow. continue IV abx for now, dirk transition to po Augmentin at discharge - will need min 3 weeks po abx. surgery following. (2) Pneumonia: Subjective pt seen in f/u, one chest tube removed yesterday, one remains. transferred out of ICU. now with more pain today, increased cough. had repeat ct chest this am, now with necrosis and abscess. wbc improved to 14, remains afebrile. Repeat blood cultures remain negative, OR cultures negative to date. Review of Systems Review of Systems: All systems reviewed & are unremarkable except as noted in HPI & below Physical Exam Constitutional: WD/WN, vitals as above Eyes: PERRL, conjunctivae normal, anicteric sclerae ENMT: external ear and nose normal, oropharynx normal Neck: normal visual inspection Respiratory: Auscultation: + diminished lung sounds and + rhonchi Cardiovascular: RRR, no murmur, no edema Gastrointestinal (Abdomen): normal bowel sounds, soft, nontender, no hepatosplenomegaly Musculoskeletal: no cyanosis or clubbing, extremities motor strength 5/5 Skin: no rashes, warm and dry Psychiatric: A+Ox3, euthymic affect Results & Data Vital Signs (Past 12 Hours) Vital Signs Temp Pulse Pulse Resp BP BP Pulse Ox 10/03/19 08:04 36.7 C 103 H 18 112/76 10/03/19 04:22 36.8 C 93 H 16 100/63 93 10/03/19 01:08 131 H 10/02/19 23:16 36.7 C 95 H 16 114/76 96 Laboratory Results Microbiology 10/01/19 14:51 Pleural Fluid Acid Fast Bacilli Smear - Final 10/01/19 14:47 Pleural Fluid Acid Fast Bacilli Smear - Final 10/01/19 Unknown Lung,Right Gram Stain - Final 10/01/19 Unknown Lung,Right Aerobic and Anaerobic Culture - Preliminary No growth to date. 10/01/19 Unknown Lung,Right Gram Stain - Final 10/01/19 Unknown Lung,Right Aerobic and Anaerobic Culture - Preliminary No growth to date. 10/01/19 Unknown Lung,Right Gram Stain - Final 10/01/19 Unknown Lung,Right Aerobic and Anaerobic Culture - Preliminary No growth to date. 10/01/19 14:51 Pleural Fluid Gram Stain - Final 10/01/19 14:51 Pleural Fluid Aerobic and Anaerobic Culture - Preliminary No growth to date. 10/01/19 14:47 Pleural Fluid Gram Stain - Final 10/01/19 14:47 Pleural Fluid Aerobic and Anaerobic Culture - Preliminary No growth to date. 09/30/19 15:05 Pleural Fluid Acid Fast Bacilli Smear - Final 10/01/19 14:47 Pleural Fluid Fungal Smear - Final 10/01/19 14:51 Pleural Fluid Fungal Smear - Final 09/30/19 02:26 Blood Aerobic Blood Culture - Preliminary No growth in Aerobic bottle after 48 hours. 09/30/19 02:26 Blood Anaerobic Blood Culture - Final 09/30/19 02:26 Blood Aerobic Blood Culture - Preliminary No growth in Aerobic bottle after 48 hours. 09/30/19 02:26 Blood Anaerobic Blood Culture - Preliminary No growth in Anaerobic bottle after 48 hours. 09/30/19 15:05 Pleural Fluid Gram Stain - Final 09/30/19 15:05 Pleural Fluid Aerobic and Anaerobic Culture - Preliminary No growth to date. 09/26/19 09:15 Sputum, Expectorated Gram Stain - Final 09/26/19 09:15 Sputum, Expectorated Sputum Culture - Final Streptococcus pneumoniae 09/26/19 00:14 Blood Aerobic Blood Culture - Final Streptococcus pneumoniae 09/26/19 00:14 Blood Anaerobic Blood Culture - Final Streptococcus pneumoniae 09/25/19 23:40 Blood Aerobic Blood Culture - Final Streptococcus pneumoniae 09/25/19 23:40 Blood Anaerobic Blood Culture - Final Streptococcus pneumoniae 09/25/19 21:10 Urine,Clean Catch Urine Culture - Final Lactobacillus species PG Care Time/CCT Total # of Minutes Spent Total Time Spent with Patient: Total time spent is greater than 50% in coordination of care (as documented) at patient's floor/unit and/or counseling patient: (1) Pneumonia Laterality: right Lung location: upper lobe of lung Pneumonia type: due to unspecified organism Qualified Code(s): J18.9 - Pneumonia, unspecified organism
--- NOTE | 2019-10-03 14:18 | Hospitalist Progress Note ---
Date of Service October 03, 2019 Assessment & Plan (1) Severe sepsis: (1) Severe sepsis: SEVERE SEPSIS SECONDARY TO PNEUMONIA- POSSIBLE COMMUNITY ACQUIRED vs ASPIRATION FROM EMESIS Strep BACTEREMIA Blood cultures: (+) for strep pneumonia-source if infection : lungs /pneumonia /empyema Urine culture: Negative Sputum culture: Moderate normal arlet CT chest: RUL pneumonia, no abscess Repeat CT chest 09/30/2019: 1. Interval insertion of a right-sided pleural pigtail catheter. The pigtail is not fully within the pleural space as it surrounds the right ribs. The proximal sidehole is extrathoracic. 2. Small amount of subcutaneous emphysema on the right 3. A moderate loculated right pleural effusion persists 4. Persistent extensive right lung consolidation 5. Small left pleural effusion In light of possible empyema, ID on board, cont on IV Unasyn can be discharged with PO Augmentin will need 3 weeks of tx Pulmonary consulted, pigtail chest tube placed 09/30/2019, Was removed accidentally Thoracic surgery Dr. Ramirez consulted,appreciate input S/p VATS on 10/01/19 ANEMIA : hb gradual drop noted from 9-> 8-> 7.3 no evidence of bleeding possible anemia of chronic disease /worsened with acute illness pt denies any symptom of dizzy spell or lightheadeness ordered IV Iron infusion follow H&H ACUTE RENAL FAILURE resolved likely Prerenal, ATN from Sepsis Nephro consulted Renal US: no obstruction Cr back to baseline HYPONATREMIA appropriately corrected HYPOKALEMIA replaced follow lytes no complain of nausea /vomiting or diarrhea SEIZURE EPISODES happened mid-August after patient abstained from alcohol Neurologist consulted, EEG performed Likely secondary to withdrawal seizures HISTORY OF ALCOHOLISM last drink was in mid-August, alcohol level normal no overt signs of withdrawal IV Ativan per [facility] protocol D/christiana ABNORMAL LIVER ULTRASOUND 1. Mild gallbladder distention is noted along with mild degree of layering sludge. No cholelithiasis or sonographic evidence of acute cholecystitis. 2. No biliary ductal dilation. 3. Increased echogenicity of the liver suggests hepatic steatosis. -- LFTs ok monitor as outpatient THROMBOCYTOPENIA likely from Sepsis, Alcoholism no signs of bleeding improving RIGHT SUBCONJUNCTIVAL HEMORRHAGE sustained after falling, during apparent seizure episode last month no vision problems, hemorrhage improving as per patient HYPOMAGNESEMIA likely from Alcoholism replace with PO and IV Mg DVT prophylaxis SCDs, early ambulation for now in light of procedures-evaluate, discussed with surgeon Disposition patient declining Alcohol rehab ordered for PT/OT OOB as tolerated stable to be transferred out of ICU Subjective pt feels much better today sitting up at the end of the bed Father visiting complains of non productive cough -causing increased pain on rib cage and at chest tube site asking for Dilaudid no fever or chills no SOB or hypoxia Physical Exam Constitutional: WD/WN, vitals as above well developed and well nourished; no acute distress Eyes: PERRL, conjunctivae normal, anicteric sclerae + conjunctival abnormality (conjunctival hge noted on rt eye ) Neck: trachea midline, no thyromegaly normal visual inspection; no nuchal rigidity Respiratory: normal respiratory effort; no respiratory distress and not tachypneic Auscultation: + diminished lung sounds, + rales and + rhonchi Cardiovascular: RRR, no murmur, no edema Rate/Rhythm: regular rate, regular rhythm and + tachycardic Heart Sounds: no gallop and no cardiac rub Extremities: no edema Gastrointestinal (Abdomen): normal bowel sounds, soft, nontender, no hep atosplenomegaly Inspection/Auscultation: normal bowel sounds Percussion/Palpation: abdomen soft; abdomen nontender Musculoskeletal: no cyanosis or clubbing, extremities motor strength 5/5 Head/Neck/Chest: neck supple Extremities: strength 5/5 throughout Skin: no rashes, warm and dry Trauma: + periorbital ecchymosis Neurologic: moves all extremities and awake; no meningeal signs Psychiatric: A+Ox3, euthymic affect Orientation: alert and oriented x 3 Eye Contact: good eye contact Results & Data Vital Signs (Past 12 Hours) Vital Signs Temp Pulse Resp BP Pulse Ox 10/03/19 08:04 36.7 C 103 H 18 112/76 10/03/19 04:22 36.8 C 93 H 16 100/63 93
--- NOTE | 2019-10-03 14:36 | Surgery Progress Note ---
Date of Service October 03, 2019 Assessment & Plan (1) Status post lung surgery: Present on Admission?: No (2) Pulmonary abscess: Present on Admission?: Yes (3) Empyema of right pleural space: Present on Admission?: Yes (4) Pneumococcal sepsis: Edna looks much better. She is better having just one chest tube. She is on room air. All cultures remain negative. CT scan was obtained which shows probable maturation of the pulmonary abscess which was present on admission. She is eating. She is ambulating. I discussed this case with Dr. Bautista from pulmonary. We will continue to push on with antibiotics. Her main chest tube should be able to be removed the next 24 to 48 hours. She is going to require a prolonged course of antibiotics. Present on Admission?: Yes Subjective The patient is improving. She is on room air. Her heart rate is in the 100s. Blood pressure stable. Physical Exam Physical Exam: She is air fairly well bilaterally. Both bases are clearer. Continues to have a cough that is not productive. She is complaining of pain. Results & Data Vital Signs (Past 12 Hours) Vital Signs Temp Pulse Resp BP Pulse Ox 10/03/19 08:04 36.7 C 103 H 18 112/76 10/03/19 04:22 36.8 C 93 H 16 100/63 93 PG Care Time/CCT Total # of Minutes Spent Total Time Spent with Patient: Total time spent is greater than 50% in coordination of care (as documented) at patient's floor/unit and/or counseling patient: (1) Pulmonary abscess Pulmonary abscess pneumonia presence: with pneumonia Laterality: right Lung location: unspecified part of lung Qualified Code(s): J85.1 - Abscess of lung with pneumonia
[2019-10-03] MEDS ORDERED: IRON SUCROSE 400 MG in SODIUM CHLORIDE 0.9% 250 ML IV ONE (15:00)
[2019-10-04] MEDS: AMPICILLIN/SULBACTAM SOD 3,000 MG in 0.9 % SODIUM CHLORIDE 100 ML IV SCH ×4 (01:27→19:02)
[2019-10-04] MEDS: ACETAMINOPHEN 325 MG TAB PO SCH ×4 (01:27→19:06)
[2019-10-04] MEDS: OXYCODONE HCL IR 5 MG TAB (IMMEDIATE RELEASE) PO PRN (03:36)
[2019-10-04] MEDS: HYDROmorphone INJ 0.5 MG/0.5 ML SYR IV PRN ×4 (07:22→20:28)
[2019-10-04] MEDS: ARIPiprazole 5 MG TAB PO SCH (07:29)
[2019-10-04] MEDS: MAGNESIUM CHLORIDE 64MG DELAYED REL TAB PO SCH ×2 (07:29→20:28)
[2019-10-04] MEDS: FLUOXETINE HCL 20 MG CAP PO SCH (07:30)
[2019-10-04] MEDS: DOCUSATE SODIUM 100 MG CAP PO SCH ×2 (07:31→20:24)
[2019-10-04] MEDS: LIDOCAINE 5% 1 PATCH TD SCH ×2 (07:32)
[2019-10-04] MEDS: POLYETHYLENE (MIRALAX) 17 GM PACK PO SCH (07:32)
[2019-10-04] MEDS: NICOTINE 14 MG/24 HR PATCH TD SCH (07:33)
--- NOTE | 2019-10-04 07:36 | XRay Report ---
XR chest 1V portable CLINICAL HISTORY: empyema COMPARISON STUDY: 10/03/2019 FINDINGS: The cardiac and mediastinal contours remain stable. The right-sided chest tube remains unch anged in position. There are persistent right lung airspace opacities with midlung cystic change poss ibly representing cavitation. There is right-sided pleural fluid/thickening. There are minimal airspa ce opacities possibly atelectatic the left lung base.[ IMPRESSION: Stable findings. Electronically signed by: Mathieu Castillo M.D. 10/04/2019 7:34 AM
[2019-10-04 08:25] LABS: Hematocrit (blood only) 22.5 % (37-47); Hemoglobin 7.2 g/dL (12.0-16.0); Mean Corpuscular Hemoglobin 38.1 pg (25-34); Mean Platelet Volume 10.3 fL (7.4-10.4); Platelet Count 521 K/uL (130-400); RDW Coefficient of Variation 14.4 % (11.5-14.5); RDW Standard Deviation 62.3 fL (36.4-46.3); Red Blood Count 1.89 M/uL (4.2-5.4); White Blood Count 15.43 K/uL (4.8-10.8)
[2019-10-04 08:55] LABS: BUN Creatinine Ratio 3.8 (10-20); Blood Urea Nitrogen 2 mg/dl (7-18); Calcium 8.5 mg/dl (8.5-10.1); Carbon Dioxide 23 mmol/L (21-32); Chloride 108 mmol/L (98-107); Creatinine Clr Calc Pharmacy 169.7 ml/min; Est GFR (African American) > 150.0; Est GFR (Non-African American) 139.4; Glucose 80 mg/dl (70-99); Magnesium 1.4 mg/dl (1.8-2.4); Phosphorus 4.6 mg/dl (2.5-4.9); Potassium 3.8 mmol/L (3.5-5.1); Sodium 140 mmol/L (136-145)
--- NOTE | 2019-10-04 10:11 | Surgery Progress Note ---
Date of Service October 04, 2019 Assessment & Plan (1) Status post lung surgery: Present on Admission?: No (2) Empyema of right pleural space: Present on Admission?: Yes (3) Pulmonary abscess: A long talk with Edna today. CT scan from yesterday was concerning as she does have a significant abscess in her right upper lobe. I discussed this with Dr. Bautista from pulmonary. We are going to push on with antibiotics. I would do nothing different now. Her hemoglobin is down to 7.2 however I do not believe she has signs or symptoms from anemia and I would not transfuse her at this point. She needs aggressive pulmonary therapy and ambulation. Is going to require antibiotics for an extended period of time. Present on Admission?: Yes Subjective Edna is subjectively better today. She drained very little from her chest tube and it is serous fluid. She is on room air. She is ambulating in the hallway. She is tolerating a regular diet. Heart rate the last 24 hours has been under 100. She has some pain but is generalized. Physical Exam Physical Exam: She had she is moving air fairly well although it is definitely decreased with some rhonchi on the right. Her dressings are dry. She has no air leak. She is drained very little fluid. It is serous in nature. Logically she is in good spirits and with no focal deficits. Results & Data Vital Signs (Past 12 Hours) Vital Signs Temp Pulse Resp BP Pulse Ox 10/04/19 07:43 36.9 C 95 H 18 115/78 95 10/03/19 22:21 37.0 C 95 H 18 129/80 95 PG Care Time/CCT Total # of Minutes Spent Total Time Spent with Patient: Total time spent is greater than 50% in coordination of care (as documented) at patient's floor/unit and/or counseling patient: (1) Pulmonary abscess Pulmonary abscess pneumonia presence: with pneumonia Laterality: right Lung location: unspecified part of lung Qualified Code(s): J85.1 - Abscess of lung with pneumonia
--- NOTE | 2019-10-04 10:45 | XRay Report ---
XR chest 1V portable CLINICAL HISTORY: chest tube removal COMPARISON STUDY: 10/04/2019 FINDINGS: The right-sided chest tube has been removed. There is no pneumothorax. There are persistent consolidative changes within the right lung with areas of probable cavitation. There is persistent m ild right-sided pleural thickening/fluid. There are minimal left basilar opacities, likely atelectati c. IMPRESSION: Interval removal right-sided chest tube. No evidence of pneumothorax. Electronically signed by: Mathieu Castillo M.D. 10/04/2019 10:44 AM
[2019-10-04] MEDS: MAGNESIUM SULFATE / D5W 1 GM/100 ML BAG IV SCH ×2 (10:51→11:58)
--- NOTE | 2019-10-04 12:41 | Infectious Disease Progress Nt ---
Date of Service October 04, 2019 Assessment & Plan (1) Pneumococcal sepsis: will continue unasyn, follow OR cultures. will follow. continue IV abx for now, likley transition to po Augmentin at discharge - will need several weeks due to abscess. surgery following. will plan to follow post d/c from hospital. (2) Pneumonia: Subjective remains on unasyn, tolerating well. repeat cultures negative. spoke with ct surgery, abscess noted on ct. plan to continue abx long term with likely serial imaging. afebrile. Results & Data Vital Signs (Past 12 Hours) Vital Signs Temp Pulse Resp BP Pulse Ox 10/04/19 07:43 36.9 C 95 H 18 115/78 95 Laboratory Results Microbiology 10/01/19 14:51 Pleural Fluid Gram Stain - Final 10/01/19 14:51 Pleural Fluid Aerobic and Anaerobic Culture - Preliminary No growth to date. 09/30/19 15:05 Pleural Fluid Gram Stain - Final 09/30/19 15:05 Pleural Fluid Aerobic and Anaerobic Culture - Preliminary No growth to date. 10/01/19 14:51 Pleural Fluid Acid Fast Bacilli Smear - Final 10/01/19 14:47 Pleural Fluid Acid Fast Bacilli Smear - Final 10/01/19 Unknown Lung,Right Gram Stain - Final 10/01/19 Unknown Lung,Right Aerobic and Anaerobic Culture - Preliminary No growth to date. 10/01/19 Unknown Lung,Right Gram Stain - Final 10/01/19 Unknown Lung,Right Aerobic and Anaerobic Culture - Preliminary No growth to date. 10/01/19 Unknown Lung,Right Gram Stain - Final 10/01/19 Unknown Lung,Right Aerobic and Anaerobic Culture - Preliminary No growth to date. 10/01/19 14:47 Pleural Fluid Gram Stain - Final 10/01/19 14:47 Pleural Fluid Aerobic and Anaerobic Culture - Preliminary No growth to date. 09/30/19 15:05 Pleural Fluid Acid Fast Bacilli Smear - Final 10/01/19 14:47 Pleural Fluid Fungal Smear - Final 10/01/19 14:51 Pleural Fluid Fungal Smear - Final 09/30/19 02:26 Blood Aerobic Blood Culture - Preliminary No growth in Aerobic bottle after 48 hours. 09/30/19 02:26 Blood Anaerobic Blood Culture - Final 09/30/19 02:26 Blood Aerobic Blood Culture - Preliminary No growth in Aerobic bottle after 48 hours. 09/30/19 02:26 Blood Anaerobic Blood Culture - Preliminary No growth in Anaerobic bottle after 48 hours. 09/26/19 09:15 Sputum, Expectorated Gram Stain - Final 09/26/19 09:15 Sputum, Expectorated Sputum Culture - Final Streptococcus pneumoniae 09/26/19 00:14 Blood Aerobic Blood Culture - Final Streptococcus pneumoniae 09/26/19 00:14 Blood Anaerobic Blood Culture - Final Streptococcus pneumoniae 09/25/19 23:40 Blood Aerobic Blood Culture - Final Streptococcus pneumoniae 09/25/19 23:40 Blood Anaerobic Blood Culture - Final Streptococcus pneumoniae 09/25/19 21:10 Urine,Clean Catch Urine Culture - Final Lactobacillus species PG Care Time/CCT Total # of Minutes Spent Total Time Spent with Patient: Total time spent is greater than 50% in coordination of care (as documented) at patient's floor/unit and/or counseling patient: (1) Pneumonia Laterality: right Lung location: upper lobe of lung Pneumonia type: due to unspecified organism Qualified Code(s): J18.9 - Pneumonia, unspecified organism
--- NOTE | 2019-10-04 14:53 | Hospitalist Progress Note ---
Date of Service October 04, 2019 Assessment & Plan (1) Severe sepsis: (1) Severe sepsis: SEVERE SEPSIS SECONDARY TO RT LOBE EMPYEMA / PNEUMONIA- POSSIBLE COMMUNITY ACQUIRED vs ASPIRATION FROM EMESIS Strep BACTEREMIA Blood cultures: (+) for strep pneumonia-source if infection : lungs /pneumonia /empyema Urine culture: Negative Sputum culture: Moderate normal arlet Thoracic surgery Dr. Ramirez consulted,appreciate input S/p VATS with rt sided chest tube placed on 10/01/[address] chest 10/03/2019: 1. Necrosis and developing abscess formation in the right upper lobe with surrounding persistent consolidation. 2. Significant interval improved aeration and clearance of prior consolidation in the right middle and right lower lobes. 3. Significant interval decrease in right pleural effusion status post placement of the right pleural aurora per thoracic surgery -recommends to continue Antibiotic for now /improvement of rt middle and lower lobe abscess noted -Chest tube removed ID eval appreciated ; pt is on IV Unasyn can be discharged with PO Augmentin will need 3 weeks of tx ANEMIA : hb gradual drop noted from 9-> 8-> 7.3 no evidence of bleeding /cont IV fe infusion possible anemia of chronic disease /worsened with acute illness pt denies any symptom of dizzy spell or lightheadeness follow H&H ACUTE RENAL FAILURE resolved likely Prerenal, ATN from Sepsis Nephro consulted Renal US: no obstruction Cr back to baseline HYPOKALEMIA replaced follow lytes no complain of nausea /vomiting or diarrhea ALCOHOL WITHDRAWAL EPISODES happened mid-August after patient abstained from alcohol Neurologist consulted, EEG performed Likely secondary to withdrawal seizures HISTORY OF ALCOHOLISM last drink was in mid-August, alcohol level normal no overt signs of withdrawal IV Ativan per [facility] protocol D/christiana ABNORMAL LIVER ULTRASOUND 1. Mild gallbladder distention is noted along with mild degree of layering sludge. No cholelithiasis or sonographic evidence of acute cholecystitis. 2. No biliary ductal dilation. 3. Increased echogenicity of the liver suggests hepatic steatosis. -- LFTs ok monitor as outpatient THROMBOCYTOPENIA likely from Sepsis, Alcoholism no signs of bleeding improving RIGHT SUBCONJUNCTIVAL HEMORRHAGE sustained after falling, during seizure episode last month no vision problems, hemorrhage improving as per patient HYPOMAGNESEMIA replace with PO and IV Mg DVT prophylaxis SCDs, Pt is encouraged to ambulate Disposition plan is to discharge home with when medically stable Subjective chest tube removed chest pain much better after that pt able to walk on the hallway no hypoxia , no SOB , no fever or chills Physical Exam Constitutional: WD/WN, vitals as above well developed and well nourished; no acute distress Eyes: PERRL, conjunctivae normal, anicteric sclerae + conjunctival abnormality (conjunctival hge noted on rt eye ) Neck: trachea midline, no thyromegaly normal visual inspection; no nuchal rigidity Respiratory: normal respiratory effort; no respiratory distress Auscultation: + diminished lung sounds (mostly on rt side ) Cardiovascular: RRR, no murmur, no edema Rate/Rhythm: regular rate, regular rhythm and + tachycardic Heart Sounds: no gallop and no cardiac rub Extremities: no edema Gastrointestinal (Abdomen): Inspection/Auscultation: normal bowel sounds Pe rcussion/Palpation: abdomen soft; abdomen nontender Musculoskeletal: no cyanosis or clubbing, extremities motor strength 5/5 Head/Neck/Chest: neck supple Extremities: strength 5/5 throughout Skin: no rashes, warm and dry Trauma: + periorbital ecchymosis Neurologic: PERRL, EOMI, accommodation nl, no face palsy, no dysarthria Psychiatric: A+Ox3, euthymic affect Orientation: alert and oriented x 3 Results & Data Vital Signs (Past 12 Hours) Vital Signs Temp Pulse Resp BP Pulse Ox 10/04/19 07:43 36.9 C 95 H 18 115/78 95
[2019-10-04] MEDS ORDERED: IRON SUCROSE 100 MG in 0.9 % SODIUM CHLORIDE 100 ML IV SCH (16:00)
[2019-10-04] MEDS: BENZONATATE 100 MG CAPSULE PO PRN (20:31)
[2019-10-05] MEDS: HYDROmorphone INJ 0.5 MG/0.5 ML SYR IV PRN ×7 (00:23→22:25)
[2019-10-05] MEDS: GUAIFENESIN/DEXTROM SYRUP 100MG/10MG 5ML UDC PO PRN ×3 (01:19→23:19)
[2019-10-05] MEDS: AMPICILLIN/SULBACTAM SOD 3,000 MG in 0.9 % SODIUM CHLORIDE 100 ML IV SCH ×4 (01:21→19:28)
[2019-10-05] MEDS: ACETAMINOPHEN 325 MG TAB PO SCH ×4 (01:21→19:28)
[2019-10-05] MEDS: OXYCODONE HCL IR 5 MG TAB (IMMEDIATE RELEASE) PO PRN ×3 (02:01→22:08)
[2019-10-05 08:39] LABS: Hematocrit (blood only) 25.4 % (37-47); Hemoglobin 8.3 g/dL (12.0-16.0)
[2019-10-05] MEDS: MAGNESIUM CHLORIDE 64MG DELAYED REL TAB PO SCH ×2 (09:07→22:08)
[2019-10-05] MEDS: FLUOXETINE HCL 20 MG CAP PO SCH (09:07)
[2019-10-05] MEDS: NICOTINE 14 MG/24 HR PATCH TD SCH (09:08)
[2019-10-05] MEDS: LIDOCAINE 5% 1 PATCH TD SCH ×2 (09:09)
[2019-10-05] MEDS: POLYETHYLENE (MIRALAX) 17 GM PACK PO SCH (09:09)
[2019-10-05] MEDS: ARIPiprazole 5 MG TAB PO SCH (09:10)
[2019-10-05] MEDS: DOCUSATE SODIUM 100 MG CAP PO SCH ×2 (09:10→19:38)
[2019-10-05] MEDS: BENZONATATE 100 MG CAPSULE PO PRN ×2 (09:10→23:20)
[2019-10-05 09:22] LABS: BUN Creatinine Ratio 3.5 (10-20); Calcium 9.1 mg/dl (8.5-10.1); Creatinine Clr Calc Pharmacy 123.7 ml/min; Est GFR (African American) 145.6; Est GFR (Non-African American) 125.6; Magnesium 1.6 mg/dl (1.8-2.4); Phosphorus 4.2 mg/dl (2.5-4.9); Potassium 3.9 mmol/L (3.5-5.1)
--- NOTE | 2019-10-05 10:06 | Surgery Progress Note ---
Date of Service October 05, 2019 Subjective The patient is ambulating in the hallway. She is tolerating a house diet. She repeatedly tells me how much better the Dilaudid makes her feel. Physical Exam Physical Exam: Her air movement is surprisingly good. I have discussed this case with Dr. Mora from infectious disease and Dr. Bautista from pulmonary. She will be on antibiotics for an extended period of time. Otherwise I think she looks quite good. We will check a chest x-ray tomorrow and a CBC. Results & Data Vital Signs (Past 12 Hours) Vital Signs Temp Pulse Resp BP Pulse Ox 10/05/19 07:29 37.2 C 98 H 16 121/82 95 10/04/19 22:36 37.0 C 103 H 19 124/82 95 PG Care Time/CCT Total # of Minutes Spent Total Time Spent with Patient: Total time spent is greater than 50% in coordination of care (as documented) at patient's floor/unit and/or counseling patient:
--- NOTE | 2019-10-05 15:42 | Hospitalist Progress Note ---
Date of Service October 05, 2019 Assessment & Plan (1) Severe sepsis: (1) Severe sepsis: resolved continues to improved with IV Unasyn chest tube removed on 10/04/19 SEVERE SEPSIS SECONDARY TO RT LOBE EMPYEMA / PNEUMONIA- POSSIBLE COMMUNITY ACQUIRED vs ASPIRATION FROM EMESIS Strep BACTEREMIA Blood cultures: (+) for strep pneumonia-source if infection : lungs /pneumonia /empyema Urine culture: Negative Sputum culture: Moderate normal arlet Thoracic surgery Dr. Ramirez consulted,appreciate input S/p VATS with rt sided chest tube placed on 10/01/[address] chest 10/03/2019: 1. Necrosis and developing abscess formation in the right upper lobe with surrounding persistent consolidation. 2. Significant interval improved aeration and clearance of prior consolidation in the right middle and right lower lobes. 3. Significant interval decrease in right pleural effusion status post placement of the right pleural aurora per thoracic surgery -recommends to continue Antibiotic for now /improvement of rt middle and lower lobe abscess noted -Chest tube removed ID eval appreciated ; pt is on IV Unasyn can be discharged with PO Augmentin will need 3 weeks of tx ANEMIA : no evidence of bleeding /cont IV Iron infusion possible anemia of chronic disease /worsened with acute illness pt denies any symptom of dizzy spell or lightheadeness given IV Venofer Hb improved to 8.3 cont to monitor ACUTE RENAL FAILURE resolved likely Prerenal, ATN from Sepsis Nephro consulted Renal US: no obstruction Cr back to baseline HYPOKALEMIA replaced follow lytes no complain of nausea /vomiting or diarrhea ALCOHOL WITHDRAWAL EPISODES happened mid-August after patient abstained from alcohol Neurologist consulted, EEG performed Likely secondary to withdrawal seizures HISTORY OF ALCOHOLISM last drink was in mid-August, alcohol level normal no overt signs of withdrawal IV Ativan per [facility] protocol D/christiana ABNORMAL LIVER ULTRASOUND 1. Mild gallbladder distention is noted along with mild degree of layering sludge. No cholelithiasis or sonographic evidence of acute cholecystitis. 2. No biliary ductal dilation. 3. Increased echogenicity of the liver suggests hepatic steatosis. -- LFTs ok monitor as outpatient THROMBOCYTOPENIA likely from Sepsis, Alcoholism no signs of bleeding improving RIGHT SUBCONJUNCTIVAL HEMORRHAGE sustained after falling, during seizure episode last month no vision problems, hemorrhage improving as per patient HYPOMAGNESEMIA replace with PO and IV Mg DVT prophylaxis SCDs, Pt is encouraged to ambulate Disposition plan is to discharge home with when medically stable Subjective continues to feel better chest pain much improved after chest tube removed yesterday no cough no fever or chills Physical Exam Constitutional: WD/WN, vitals as above well developed and well nourished; no acute distress Eyes: PERRL, conjunctivae normal, anicteric sclerae + conjunctival abnormality (conjunctival hge noted on rt eye ) Neck: trachea midline, no thyromegaly normal visual inspection Respiratory: normal respiratory effort; no respiratory distress Auscultation: + diminished lung sounds (mostly on rt side ) Cardiovascular: RRR, no murmur, no edema Rate/Rhythm: regular rate and regular rhythm Extremities: no edema Gastrointestinal (Abdomen): normal bowel sounds, soft, nontender, no hepatosplenomegaly Musculoskeletal: no cyanosis or clubbing, extremities motor strength 5/5 Skin: no rashes, warm and dry Trauma: + periorbital ecchymosis Neurologic: PERRL, EOMI, accommodation nl, no face palsy, no dysarthria Psychiatric: A+Ox3, euthymic affect Orientation: alert and oriented x 3 Results & Data Vital Signs (Past 12 Hours) Vital Signs Temp Pulse Resp BP Pulse Ox 10/05/19 15:24 36.6 C 122 H 20 118/77 98 10/05/19 07:29 37.2 C 98 H 16 121/82 95
[2019-10-06] MEDS: AMPICILLIN/SULBACTAM SOD 3,000 MG in 0.9 % SODIUM CHLORIDE 100 ML IV SCH ×4 (01:51→19:57)
[2019-10-06] MEDS: HYDROmorphone INJ 0.5 MG/0.5 ML SYR IV PRN ×7 (01:52→23:35)
[2019-10-06] MEDS: ACETAMINOPHEN 325 MG TAB PO SCH ×4 (02:03→19:56)
[2019-10-06] MEDS: OXYCODONE HCL IR 5 MG TAB (IMMEDIATE RELEASE) PO PRN ×3 (06:06→19:57)
--- NOTE | 2019-10-06 07:38 | XRay Report ---
XR chest 1V portable CLINICAL HISTORY: 29 years-old Female presenting with pneumonia. TECHNIQUE: Portable upright AP view of the chest was obtained. COMPARISON: 10/04/2019. FINDINGS: Cardiomediastinal silhouette normal. Elevation of the right hemidiaphragm as on prior exam. Small to moderate right pleural effusion. A loculated portion of the effusion may be present in the right uppe r pleural space. Slight interval decrease in the degree of peripheral predominant dense opacity in th e right lung. Developing lucency may be present in the periphery of the right midlung in the region o f opacity. The left lung and pleural spaces clear. Osseous structures normal. Upper abdomen normal. IMPRESSION: 1. Slight interval decrease in consolidation of the periphery of the right lung with persistent locu lated right pleural effusion. Cavitary change noted as on prior CT. Electronically signed by: Roman Simmons M.D. 10/06/2019 7:37 AM
[2019-10-06 07:51] LABS: Basophils # (auto) 0.02 K/uL (0-0.2); Basophils % (auto) 0.1 %; Eosinophils # (auto) 0.12 K/uL (0-0.5); Eosinophils % (auto) 0.7 %; Hematocrit (blood only) 24.7 % (37-47); Hemoglobin 8.1 g/dL (12.0-16.0); Immature Granulocytes # (auto) 0.13 K/uL (0.00-0.02); Immature Granulocytes % (auto) 0.7 %; Lymphocytes # (auto) 1.37 K/uL (1.2-3.4); Lymphocytes % (auto) 7.6 %; Mean Corpuscular Hemoglobin 38.9 pg (25-34); Mean Corpuscular Hgb Conc 32.8 g/dL (32-36); Mean Corpuscular Volume 118.8 fL (80-100); Mean Platelet Volume 9.9 fL (7.4-10.4); Monocytes # (auto) 1.03 K/uL (0.11-0.59); Monocytes % (auto) 5.7 %; Neutrophils # (auto) 15.38 K/uL (1.4-6.5); Neutrophils % (auto) 85.2 %; Platelet Count 680 K/uL (130-400); RDW Coefficient of Variation 15.1 % (11.5-14.5); RDW Standard Deviation 63.9 fL (36.4-46.3); Red Blood Count 2.08 M/uL (4.2-5.4); White Blood Count 18.05 K/uL (4.8-10.8)
[2019-10-06 08:19] LABS: Macrocytosis Present; Polychromasia 1+
[2019-10-06 08:24] LABS: BUN Creatinine Ratio 5.3 (10-20); Calcium 9.2 mg/dl (8.5-10.1); Creatinine Clr Calc Pharmacy 130.3 ml/min; Est GFR (African American) 148.1; Est GFR (Non-African American) 127.8; Magnesium 1.6 mg/dl (1.8-2.4); Phosphorus 4.5 mg/dl (2.5-4.9); Potassium 4.3 mmol/L (3.5-5.1)
[2019-10-06] MEDS: BENZONATATE 100 MG CAPSULE PO PRN ×2 (08:34→14:00)
[2019-10-06] MEDS: MAGNESIUM CHLORIDE 64MG DELAYED REL TAB PO SCH ×2 (08:34→20:39)
[2019-10-06] MEDS: GUAIFENESIN/DEXTROM SYRUP 100MG/10MG 5ML UDC PO PRN ×3 (08:34→20:38)
[2019-10-06] MEDS: FLUOXETINE HCL 20 MG CAP PO SCH (08:34)
[2019-10-06] MEDS: NICOTINE 14 MG/24 HR PATCH TD SCH (08:35)
[2019-10-06] MEDS: DOCUSATE SODIUM 100 MG CAP PO SCH ×2 (08:35→20:39)
[2019-10-06] MEDS: ARIPiprazole 5 MG TAB PO SCH (08:35)
[2019-10-06] MEDS: LIDOCAINE 5% 1 PATCH TD SCH ×2 (08:36)
[2019-10-06] MEDS: POLYETHYLENE (MIRALAX) 17 GM PACK PO SCH (08:36)
--- NOTE | 2019-10-06 09:44 | Hospitalist Progress Note ---
Date of Service October 06, 2019 Assessment & Plan (1) Severe sepsis: (1) Severe sepsis: resolved clinically much improved continue IV Abx with IV Unasyn chest tube removed on 10/04/19 SEVERE SEPSIS SECONDARY TO RT LOBE EMPYEMA / PNEUMONIA- POSSIBLE COMMUNITY ACQUIRED vs ASPIRATION FROM EMESIS Strep BACTEREMIA Blood cultures: (+) for strep pneumonia-source if infection : lungs /pneumonia /empyema Urine culture: Negative Sputum culture: Moderate normal arlet Thoracic surgery Dr. Ramirez consulted,appreciate input S/p VATS with rt sided chest tube placed on 10/01/[address] chest 10/03/2019: 1. Necrosis and developing abscess formation in the right upper lobe with surrounding persistent consolidation. 2. Significant interval improved aeration and clearance of prior consolidation in the right middle and right lower lobes. 3. Significant interval decrease in right pleural effusion status post placement of the right pleural drainage Cxray today shows persisted loculated pleural effusion on right side slight decrease on right peripheral consolidation per Thoracic surgery -recommends to continue Antibiotic ID eval appreciated ; pt is on IV Unasyn can be discharged with PO Augmentin will need 3 weeks of tx ANEMIA : no evidence of bleeding /cont IV Iron infusion possible anemia of chronic disease /worsened with acute illness pt denies any symptom of dizzy spell or lightheadeness given IV Venofer Hb remains stable > 8 cont to monitor ACUTE RENAL FAILURE resolved likely Prerenal, ATN from Sepsis Nephro consulted Renal US: no obstruction Cr back to baseline HYPOKALEMIA replaced follow lytes no complain of nausea /vomiting or diarrhea LOW MG : ordered for replacement ALCOHOL WITHDRAWAL EPISODES happened mid-August after patient abstained from alcohol Neurologist consulted, EEG performed Likely secondary to withdrawal seizures HISTORY OF ALCOHOLISM last drink was in mid-August, alcohol level normal no overt signs of withdrawal IV Ativan per [facility] protocol D/christiana ABNORMAL LIVER ULTRASOUND 1. Mild gallbladder distention is noted along with mild degree of layering sludge. No cholelithiasis or sonographic evidence of acute cholecystitis. 2. No biliary ductal dilation. 3. Increased echogenicity of the liver suggests hepatic steatosis. -- LFTs ok monitor as outpatient THROMBOCYTOPENIA likely from Sepsis, Alcoholism no signs of bleeding improving RIGHT SUBCONJUNCTIVAL HEMORRHAGE improving sustained after falling, during seizure episode last month no vision problems, hemorrhage improving as per patient HYPOMAGNESEMIA replace with PO and IV Mg DVT prophylaxis SCDs, Pt is encouraged to ambulate Disposition plan is to discharge home in next 24-48 hrs with oral meds if remains medically stable Subjective sitting on side of bed no cough or SOB has been afebrile reports of feeling better , walking on hallway without any evidence of SOB or REDDING Physical Exam Constitutional: WD/WN, vitals as above well developed and well nourished; no acute distress Eyes: PERRL, conjunctivae normal, anicteric sclerae + conjunctival abnormality (conjunctival hge noted on rt eye ) ENMT: Mouth: no dentition abnormality Mallampati Class: II Neck: trachea midline, no thyromegaly normal visual inspection Respiratory: normal respiratory effort; no respiratory distress Auscultation: + diminished lung sounds (mostly on rt side ) Cardiovascular: RRR, no murmur, no edema Rate/Rhythm: regular rate and regular rhythm Heart Sounds: no gallop and no cardiac rub Extremities: no edema Gastrointestinal (Abdomen): normal bowel sounds, soft, nontender, no hepatosplenomegaly Inspection/Auscultation: normal bowel sounds Percussion/Palpation: abdomen soft; abdomen nontender Musculoskeletal: no cyanosis or clubbing, extremities motor strength 5/5 Head/Neck/Chest: neck supple Extremities: strength 5/5 throughout Skin: no rashes, warm and dry Trauma: + periorbital ecchymosis Neurologic: PERRL, EOMI, accommodation nl, no face palsy, no dysarthria moves all extremities and awake; no meningeal signs Psychiatric: A+Ox3, euthymic affect Orientation: alert and oriented x 3 Eye Contact: good eye contact Lymphatic: no cervical or axillary lymphadenopathy no inguinal lymphadenopathy Results & Data Vital Signs (Past 12 Hours) Vital Signs Temp Pulse Resp BP Pulse Ox 10/06/19 07:31 37.2 C 115 H 16 130/76 94 10/05/19 22:26 37.4 C 107 H 16 125/85 95
--- NOTE | 2019-10-06 09:49 | Surgery Progress Note ---
Date of Service October 06, 2019 Assessment & Plan (1) Status post lung surgery: Present on Admission?: No (2) Pulmonary abscess: Present on Admission?: Yes (3) Empyema of right pleural space: Corrine continues to improve clinically. Her heart rate is up a bit however she is about 100 on my evaluation this morning. She will need to be on antibiotics for an stent length of time. I think her x-ray actually looks a bit better despite the radiology report. He does have a pulmonary abscess. I am hopeful this response to antibiotics. Does not appear to be reaccumulating fluid. Present on Admission?: Yes Subjective Patient is ambulating in the hallway. Tolerating a house diet. She states her cough is much improved although she still has a cough productive of some thin sputum. Physical Exam Physical Exam: Her right chest dressings are dry. She does have decreased breath sounds on the right relative to the left however she is moving air well without wheezing. Results & Data Vital Signs (Past 12 Hours) Vital Signs Temp Pulse Resp BP Pulse Ox 10/06/19 07:31 37.2 C 115 H 16 130/76 94 10/05/19 22:26 37.4 C 107 H 16 125/85 95 PG Care Time/CCT Total # of Minutes Spent Total Time Spent with Patient: Total time spent is greater than 50% in coordination of care (as documented) at patient's floor/unit and/or counseling patient: (1) Pulmonary abscess Pulmonary abscess pneumonia presence: with pneumonia Laterality: right Lung location: unspecified part of lung Qualified Code(s): J85.1 - Abscess of lung with pneumonia
[2019-10-06] MEDS ORDERED: MAGNESIUM SULFATE / D5W 1 GM/100 ML BAG IV ONE (16:15)
--- NOTE | 2019-10-06 21:35 | Ultrasound Report ---
US venous doppler UE RT CLINICAL HISTORY: 29 years-old Female presenting with rt arm swelling at IV site. TECHNIQUE: Real-time grayscale and color and spectral Doppler ultrasound imaging of the veins of the right upper extremity was performed. Compression and augmentation were also utilized. COMPARISON: None. FINDINGS: RIGHT: Internal jugular vein: Patent. Subclavian vein: Patent. Axillary vein: Patent. Brachial vein: Patent. Basilic vein (superficial): Patent. Cephalic vein (superficial): Occlusive thrombus extending from the antecubital fossa to the proximal forearm approximately 10 cm in length. Radial vein: Patent. Ulnar vein: Patent. Other: None. IMPRESSION: 1. No evidence of deep venous thrombosis. 2. Superficial venous thrombosis in the cephalic vein extending from the antecubital fossa to the fo rearm. The report will be called/faxed according to standard departmental protocol. Electronically signed by: Roman Simmons M.D. 10/06/2019 9:34 PM
[2019-10-07] MEDS: AMPICILLIN/SULBACTAM SOD 3,000 MG in 0.9 % SODIUM CHLORIDE 100 ML IV SCH ×3 (01:55→13:23)
[2019-10-07] MEDS: ACETAMINOPHEN 325 MG TAB PO SCH ×4 (02:29→20:38)
[2019-10-07] MEDS: HYDROmorphone INJ 0.5 MG/0.5 ML SYR IV PRN ×8 (02:29→23:51)
[2019-10-07 06:23] LABS: BUN Creatinine Ratio 8.3 (10-20); Calcium 8.9 mg/dl (8.5-10.1); Creatinine Clr Calc Pharmacy 135.1 ml/min; Est GFR (African American) 149.9; Est GFR (Non-African American) 129.3; Magnesium 1.7 mg/dl (1.8-2.4); Phosphorus 4.5 mg/dl (2.5-4.9)
[2019-10-07] MEDS: ARIPiprazole 5 MG TAB PO SCH (08:05)
[2019-10-07] MEDS: NICOTINE 14 MG/24 HR PATCH TD SCH (08:05)
[2019-10-07] MEDS: MAGNESIUM CHLORIDE 64MG DELAYED REL TAB PO SCH ×2 (08:05→20:37)
[2019-10-07] MEDS: FLUOXETINE HCL 20 MG CAP PO SCH (08:05)
[2019-10-07] MEDS: DOCUSATE SODIUM 100 MG CAP PO SCH ×2 (08:06→20:38)
[2019-10-07] MEDS: LIDOCAINE 5% 1 PATCH TD SCH ×2 (08:06)
[2019-10-07] MEDS: POLYETHYLENE (MIRALAX) 17 GM PACK PO SCH (08:06)
[2019-10-07] MEDS: OXYCODONE HCL IR 5 MG TAB (IMMEDIATE RELEASE) PO PRN ×2 (09:17→16:12)
[2019-10-07] MEDS: BENZONATATE 100 MG CAPSULE PO PRN ×2 (09:17→20:37)
[2019-10-07] MEDS: GUAIFENESIN/DEXTROM SYRUP 100MG/10MG 5ML UDC PO PRN ×2 (13:07→20:45)
--- NOTE | 2019-10-07 14:21 | Hospitalist Progress Note ---
Date of Service October 07, 2019 Assessment & Plan (1) Severe sepsis: (1) Severe sepsis: resolved clinically much improved Abx changed to pO Augmentin will need 3 weeks of tx chest tube removed on 10/04/19 SEVERE SEPSIS SECONDARY TO RT LOBE EMPYEMA / PNEUMONIA- POSSIBLE COMMUNITY ACQUIRED vs ASPIRATION FROM EMESIS Strep BACTEREMIA Blood cultures: (+) for strep pneumonia-source if infection : lungs /pneumonia /empyema Urine culture: Negative Sputum culture: Moderate normal arlet Thoracic surgery Dr. Ramirez consulted,appreciate input S/p VATS with rt sided chest tube placed on 10/01/[address] chest 10/03/2019: 1. Necrosis and developing abscess formation in the right upper lobe with surrounding persistent consolidation. 2. Significant interval improved aeration and clearance of prior consolidation in the right middle and right lower lobes. 3. Significant interval decrease in right pleural effusion status post placement of the right pleural drainage per Thoracic surgery -recommends to continue Antibiotic/does not need any surgical intervention ( chest tube ) for rt upper lobe abscess -as pt is improving clinically ID eval appreciated ; pt was on IV Unasyn abx changed to PO Augmentin will need 3 weeks of tx given presence of rt upper lobe abscess -pt will need close follow up with family physician and Ct surgery Imaging follow up -Ct chest in 2 week ANEMIA : no evidence of bleeding /cont IV Iron infusion possible anemia of chronic disease /worsened with acute illness pt denies any symptom of dizzy spell or lightheadeness given IV Venofer hb stable cont to monitor ACUTE RENAL FAILURE resolved likely Prerenal, ATN from Sepsis Nephro consulted Renal US: no obstruction Cr back to baseline HYPOKALEMIA replaced follow lytes no complain of nausea /vomiting or diarrhea LOW MG : ordered for replacement ALCOHOL WITHDRAWAL EPISODES happened mid-August after patient abstained from alcohol Neurologist consulted, EEG performed Likely secondary to withdrawal seizures HISTORY OF ALCOHOLISM last drink was in mid-August, alcohol level normal no overt signs of withdrawal IV Ativan per [facility] protocol D/christiana ABNORMAL LIVER ULTRASOUND 1. Mild gallbladder distention is noted along with mild degree of layering sludge. No cholelithiasis or sonographic evidence of acute cholecystitis. 2. No biliary ductal dilation. 3. Increased echogenicity of the liver suggests hepatic steatosis. -- LFTs ok monitor as outpatient THROMBOCYTOPENIA likely from Sepsis, Alcoholism no signs of bleeding improving RIGHT SUBCONJUNCTIVAL HEMORRHAGE improving sustained after falling, during seizure episode last month no vision problems, hemorrhage improving as per patient HYPOMAGNESEMIA replace with PO and IV Mg DVT prophylaxis SCDs, Pt is encouraged to ambulate Disposition plan is to discharge home in next 24-48 hrs with oral meds if remains medically stable Subjective feels well today has minimum cough , no fever or chills dressing on the back at chest tube site -taken off by Dr Jose area is healing well /no drainage no hypoxia , no SOB abx changed to PO Augmentin today Physical Exam Constitutional: WD/WN, vitals as above well developed and well nourished; no acute distress Eyes: PERRL, conjunctivae normal, anicteric sclerae + conjunctival abnormality (conjunctival hge noted on rt eye ) Neck: trachea midline, no thyromegaly normal visual inspection Respiratory: normal respiratory effort; no respiratory distress Auscultation: + diminished lung sounds (mostly on rt side ) Cardiovascular: RRR, no murmur, no edema Rate/Rhythm: regular rate and regular rhythm Heart Sounds: no gallop and no cardiac rub Extremities: no edema Gastrointestinal (Abdomen): normal bowel sounds, soft, nontender, no hepatosplenomegaly Inspection/Auscultation: normal bowel sounds Percussion/Palpation: abdomen soft; abdomen nontender Musculoskeletal: no cyanosis or clubbing, extremities motor strength 5/5 Head/Neck/Chest: neck supple Extremities: strength 5/5 throughout Skin: no rashes, warm and dry Trauma: + periorbital ecchymosis Neurologic: PERRL, EOMI, accommodation nl, no face palsy, no dysarthria moves all extremities and awake; no meningeal signs Psychiatric: A+Ox3, euthymic affect Orientation: alert and oriented x 3 Eye Contact: good eye contact Affect: + anxious affect Lymphatic: no cervical or axillary lymphadenopathy no inguinal lymphadenopathy Results & Data Vital Signs (Past 12 Hours) Vital Signs Temp Pulse Resp BP Pulse Ox 10/07/19 07:51 36.8 C 113 H 20 102/64 97
[2019-10-07] MEDS: MAGNESIUM SULFATE / D5W 1 GM/100 ML BAG IV SCH ×2 (14:58→16:04)
[2019-10-07] MEDS: AMOXICILLIN/CLAVULANATE 875 MG TAB PO SCH (16:12)
--- NOTE | 2019-10-07 16:32 | Surgery Progress Note ---
Date of Service October 07, 2019 Assessment & Plan (1) Status post lung surgery: Present on Admission?: No (2) Pulmonary abscess: Present on Admission?: Yes (3) Empyema of right pleural space: I remain concerned about Edna. Her tachycardia and relative tachypnea is a bit concerning.. Her white count went up to 18,000 yesterday however I think her x-ray actually looks a bit better. This patient is going to need prolonged antibiotics. Present on Admission?: Yes Subjective Patient is feeling better. Her pain is better. Physical Exam Physical Exam: Does have decreased breath sounds in the right lung field relative to the left however, she has no wheezing is moving air well. I removed all of her dressings and her incisions are healing up nicely. She may take a shower if desired. Results & Data Vital Signs (Past 12 Hours) Vital Signs Temp Pulse Resp BP Pulse Ox 10/07/19 15:08 37.0 C 127 H 22 118/72 94 10/07/19 07:51 36.8 C 113 H 20 102/64 97 PG Care Time/CCT Total # of Minutes Spent Total Time Spent with Patient: Total time spent is greater than 50% in coordination of care (as documented) at patient's floor/unit and/or counseling patient: (1) Pulmonary abscess Pulmonary abscess pneumonia presence: with pneumonia Laterality: right Lung location: unspecified part of lung Qualified Code(s): J85.1 - Abscess of lung with pneumonia
[2019-10-08] MEDS: ACETAMINOPHEN 325 MG TAB PO SCH ×3 (02:30→13:55)
[2019-10-08] MEDS: HYDROmorphone INJ 0.5 MG/0.5 ML SYR IV PRN ×2 (03:02→07:00)
[2019-10-08 07:14] LABS: Hematocrit (blood only) 26.2 % (37-47); Hemoglobin 8.3 g/dL (12.0-16.0); Mean Corpuscular Hemoglobin 38.2 pg (25-34); Mean Corpuscular Hgb Conc 31.7 g/dL (32-36); Mean Corpuscular Volume 120.7 fL (80-100); Mean Platelet Volume 9.5 fL (7.4-10.4); Platelet Count 723 K/uL (130-400); RDW Standard Deviation 65.3 fL (36.4-46.3); Red Blood Count 2.17 M/uL (4.2-5.4); White Blood Count 12.51 K/uL (4.8-10.8)
--- NOTE | 2019-10-08 07:14 | XRay Report ---
SINGLE VIEW CHEST CLINICAL HISTORY: Dyspnea. FINDINGS: An AP, portable, upright chest radiograph is compared to study dated 10/06/2019 and correla corky with chest CT dated 10/03/2019. The examination is degraded by portable technique and patient rot ation. The cardiomediastinal silhouette is unremarkable. There is elevation of the right hemidiaphra gm with a small right pleural effusion. Consolidation throughout the right lung is similar to previou s. Foci of cavitation are again noted. There is trace left pleural effusion. Left lung is otherwise c lear. No pneumothorax is seen. The bony thorax is grossly intact. IMPRESSION: 1. Consolidation in the right mid lung with foci of cavitation has not significantly changed from . 2. Right larger than left pleural effusions. Electronically signed by: Alejandro Phan M.D. 10/08/2019 7:13 AM
[2019-10-08] MEDS: DOCUSATE SODIUM 100 MG CAP PO SCH (07:33)
[2019-10-08] MEDS: POLYETHYLENE (MIRALAX) 17 GM PACK PO SCH (07:33)
[2019-10-08] MEDS: NICOTINE 14 MG/24 HR PATCH TD SCH (07:35)
[2019-10-08] MEDS: AMOXICILLIN/CLAVULANATE 875 MG TAB PO SCH (07:36)
[2019-10-08] MEDS: FLUOXETINE HCL 20 MG CAP PO SCH (07:36)
[2019-10-08] MEDS: MAGNESIUM CHLORIDE 64MG DELAYED REL TAB PO SCH (07:36)
[2019-10-08] MEDS: ARIPiprazole 5 MG TAB PO SCH (07:36)
[2019-10-08 07:43] LABS: BUN Creatinine Ratio 10.3 (10-20); Blood Urea Nitrogen 5 mg/dl (7-18); Calcium 9.2 mg/dl (8.5-10.1); Carbon Dioxide 21 mmol/L (21-32); Chloride 105 mmol/L (98-107); Creatinine Clr Calc Pharmacy 140.3 ml/min; Est GFR (African American) > 150.0; Est GFR (Non-African American) 130.9; Glucose 89 mg/dl (70-99); Magnesium 1.8 mg/dl (1.8-2.4); Phosphorus 4.5 mg/dl (2.5-4.9); Potassium 4.1 mmol/L (3.5-5.1); Sodium 136 mmol/L (136-145)
[2019-10-08] MEDS: OXYCODONE HCL IR 5 MG TAB (IMMEDIATE RELEASE) PO PRN (08:01)
--- NOTE | 2019-10-08 08:06 | XRay Report ---
XR chest 2V PA/lateral CLINICAL HISTORY: 29 years-old Female presenting with empyema. TECHNIQUE: PA and lateral views of the chest were obtained. COMPARISON: 10/08/2019. FINDINGS: Cardiomediastinal silhouette normal. Redemonstration of the loculated right pleural effusion. Multipl e air-fluid levels are evident in the periphery of the right mid upper lung with similar appearance o f the patchy peripheral predominant dense opacity. No pneumothorax. Left lung and pleural space clear . Osseous structures normal. Upper abdomen normal. IMPRESSION: 1. Multiple air-fluid levels within the periphery of the right mid to upper lung concerning for unde rlying lung abscesses/cavitations. This is somewhat better defined on the current exam. 2. Persistent loculated right pleural effusion. Electronically signed by: Roman Simmons M.D. 10/08/2019 8:03 AM
[2019-10-08] MEDS ORDERED: FOLIC ACID 1 MG TAB PO SCH (09:00)
--- NOTE | 2019-10-08 10:46 | Hospitalist Progress Note ---
Date of Service October 08, 2019 Assessment & Plan (1) Severe sepsis: PAIN MEDICATION DEPENDENCY : pt is showing behavior of abusing narcotic pain meds ordered O.5 mg IV dilaudid q 3 hrs for chest wall pain -as pt had chest tube and lung abscess chest tube been d/christiana 4 days back on 10/04/19 , chest tube insertion area well healed does not have any cough /should not require large amount of pain meds requesting Iv dilaudid every 3 hrs iv pain meds D/christiana pt appears to be very groggy this AM monitor plan for dc home tomorrow (1) Severe sepsis: resolved clinically much improved Abx changed to pO Augmentin will need 3 weeks of tx chest tube removed on 10/04/19 SEVERE SEPSIS SECONDARY TO RT LOBE EMPYEMA / PNEUMONIA- POSSIBLE COMMUNITY ACQUIRED vs ASPIRATION FROM EMESIS Strep BACTEREMIA Blood cultures: (+) for strep pneumonia-source if infection : lungs /pneumonia /empyema Urine culture: Negative Sputum culture: Moderate normal arlet Thoracic surgery Dr. Ramirez consulted,appreciate input S/p VATS with rt sided chest tube placed on 10/01/[address] chest 10/03/2019: 1. Necrosis and developing abscess formation in the right upper lobe with surrounding persistent consolidation. 2. Significant interval improved aeration and clearance of prior consolidation in the right middle and right lower lobes. 3. Significant interval decrease in right pleural effusion status post placement of the right pleural drainage per Thoracic surgery -recommends to continue Antibiotic/does not need any surgical intervention ( chest tube ) for rt upper lobe abscess -as pt is improving clinically ID eval appreciated ; pt was on IV Unasyn abx changed to PO Augmentin will need 3 weeks of tx -scripts sent to pt;s pharmacy given presence of rt upper lobe abscess -pt will need close follow up with family physician and Ct surgery Imaging follow up -Ct chest in 2 week ANEMIA : no evidence of bleeding /cont IV Iron infusion possible anemia of chronic disease /worsened with acute illness pt denies any symptom of dizzy spell or lightheadeness given IV Venofer hb stable MCV > 100 suggestive of vitb 12 /folic acid deficienty ( hx of alcohol abuse ) ordered for thiamine /po folic acid check folate and vit b 12 level in am labs need out pt follow up with family physician strongly counselled for Alcohol Abstinence ACUTE RENAL FAILURE resolved likely Prerenal, ATN from Sepsis Nephro consulted Renal US: no obstruction Cr back to baseline HYPOKALEMIA replaced follow lytes no complain of nausea /vomiting or diarrhea LOW MG : ordered for replacement ALCOHOL WITHDRAWAL EPISODES happened mid-August after patient abstained from alcohol Neurologist consulted, EEG performed Likely secondary to withdrawal seizures HISTORY OF ALCOHOLISM last drink was in mid-August, alcohol level normal no overt signs of withdrawal IV Ativan per [facility] protocol D/christiana ABNORMAL LIVER ULTRASOUND 1. Mild gallbladder distention is noted along with mild degree of layering sludge. No cholelithiasis or sonographic evidence of acute cholecystitis. 2. No biliary ductal dilation. 3. Increased echogenicity of the liver suggests hepatic steatosis. -- LFTs ok monitor as outpatient THROMBOCYTOPENIA likely from Sepsis, Alcoholism no signs of bleeding improving RIGHT SUBCONJUNCTIVAL HEMORRHAGE improving sustained after falling, during seizure episode last month no vision problems, hemorrhage improving as per patient HYPOMAGNESEMIA replace with PO and IV Mg DVT prophylaxis SCDs, Pt is encouraged to ambulate Disposition plan is to discharge home tomorrow Subjective pt appears to be groggy /sedated woke up to voice says she is been a lot of pain on her rib cage as she coughs-asking of IV dilaudid no coughing episode noted in past few days lungs are clear with unchanged diminished breath on right also reports from nursing -pt is abusing Narcotics , requesting IV dilaudid every 3 hrs , even she does not appear to be in pain IV dialudid D/christiana I had a long discussion with the pt and her Dad yesterday on discharge no narcotic pain meds will be prescribed pt has long hx of drug and alcohol abuse -counselling provided regarding dependency /addiction on prescription pain meds -Pt and her family verbalized understanding will hold DC home today plan to discharge home tomorrow Physical Exam Constitutional: WD/WN, vitals as above well developed and well nourished; no acute distress Eyes: PERRL, conjunctivae normal, anicteric sclerae + conjunctival abnormality (conjunctival hge noted on rt eye ) ENMT: Mouth: no dentition abnormality Mallampati Class: II Neck: trachea midline, no thyromegaly normal visual inspection Respiratory: normal respiratory effort; no respiratory distress Auscultation: + diminished lung sounds (mostly on rt side ) Cardiovascular: RRR, no murmur, no edema Rate/Rhythm: regular rate and regular rhythm Heart Sounds: no gallop and no cardiac rub Extremities: no edema Gastrointestinal (Abdomen): normal bowel sounds, soft, nontender, no hepatosplenomegaly Inspection/Auscultation: normal bowel sounds Percussion/Palpation: abdomen soft; abdomen nontender Musculoskeletal: no cyanosis or clubbing, extremities motor strength 5/5 Head/Neck/Chest: neck supple Extremities: strength 5/5 throughout Skin: no rashes, warm and dry Trauma: + periorbital ecchymosis Neurologic: PERRL, EOMI, accommodation nl, no face palsy, no dysarthria moves all extremities and awake; no meningeal signs Psychiatric: A+Ox3, euthymic affect Orientation: alert and oriented x 3 Eye Contact: good eye contact Affect: + anxious affect Lymphatic: no cervical or axillary lymphadenopathy no inguinal lymphadenopathy Results & Data Vital Signs (Past 12 Hours) Vital Signs Temp Pulse Resp BP Pulse Ox 10/08/19 06:57 36.9 C 112 H 18 110/74 96 10/07/19 23:05 36.9 C 112 H 18 114/77 97
[2019-10-08] MEDS ORDERED: ONDANSETRON 4 MG OD TAB PO PRN (11:27)
[2019-10-08] MEDS ORDERED: OXYCODONE HCL IR 5 MG TAB (IMMEDIATE RELEASE) PO PRN (11:27)
[2019-10-08] MEDS ORDERED: THIAMINE HCL 100 MG TAB PO SCH (12:00)
[2019-10-08] MEDS: GUAIFENESIN/DEXTROM SYRUP 100MG/10MG 5ML UDC PO PRN (12:43)
[2019-10-08] MEDS: BENZONATATE 100 MG CAPSULE PO PRN (12:43)
--- NOTE | 2019-10-08 13:01 | Infectious Disease Progress Nt ---
Date of Service October 08, 2019 Assessment & Plan (1) Pneumococcal sepsis: will continue Augmentin, negative OR cultures. will follow. will need several weeks due to abscess. surgery following. will plan to follow post d/c from hospital. (2) Pneumonia: Subjective pt remains on augmentin, tolerating well. afebrile. had wbc 18 yesterday, improved to 12 today, CXR with improvement but abscess remains. all recent micro negative. Results & Data Vital Signs (Past 12 Hours) Vital Signs Temp Pulse Resp BP Pulse Ox 10/08/19 06:57 36.9 C 112 H 18 110/74 96 Laboratory Results Microbiology 10/01/19 14:51 Pleural Fluid Fungal Smear - Final 10/01/19 14:51 Pleural Fluid Fungal Culture - Preliminary No yeast or fungus isolated - Report 1, Additional Report to Follow. 10/01/19 14:47 Pleural Fluid Fungal Smear - Final 10/01/19 14:47 Pleural Fluid Fungal Culture - Preliminary No yeast or fungus isolated - Report 1, Additional Report to Follow. 10/01/19 14:51 Pleural Fluid Acid Fast Bacilli Smear - Final 10/01/19 14:51 Pleural Fluid Acid Fast Bacilli Culture - Preliminary No Acid-Fast Bacilli Isolated - Report 1, Additional Report to Follow. 10/01/19 14:47 Pleural Fluid Acid Fast Bacilli Smear - Final 10/01/19 14:47 Pleural Fluid Acid Fast Bacilli Culture - Preliminary No Acid-Fast Bacilli Isolated - Report 1, Additional Report to Follow. 09/30/19 15:05 Pleural Fluid Acid Fast Bacilli Smear - Final 09/30/19 15:05 Pleural Fluid Acid Fast Bacilli Culture - Preliminary No Acid-Fast Bacilli Isolated - Report 1, Additional Report to Follow. 10/01/19 Unknown Lung,Right Gram Stain - Final 10/01/19 Unknown Lung,Right Aerobic and Anaerobic Culture - Final No growth 10/01/19 Unknown Lung,Right Gram Stain - Final 10/01/19 Unknown Lung,Right Aerobic and Anaerobic Culture - Final No growth 10/01/19 Unknown Lung,Right Gram Stain - Final 10/01/19 Unknown Lung,Right Aerobic and Anaerobic Culture - Final No growth 10/01/19 14:51 Pleural Fluid Gram Stain - Final 10/01/19 14:51 Pleural Fluid Aerobic and Anaerobic Culture - Final No growth 10/01/19 14:47 Pleural Fluid Gram Stain - Final 10/01/19 14:47 Pleural Fluid Aerobic and Anaerobic Culture - Final No growth 09/30/19 15:05 Pleural Fluid Gram Stain - Final 09/30/19 15:05 Pleural Fluid Aerobic and Anaerobic Culture - Final No growth 09/30/19 02:26 Blood Aerobic Blood Culture - Final No growth in Aerobic bottle after 5 days. 09/30/19 02:26 Blood Anaerobic Blood Culture - Final No growth in Anaerobic bottle after 5 days. 09/30/19 02:26 Blood Aerobic Blood Culture - Final No growth in Aerobic bottle after 5 days. 09/30/19 02:26 Blood Anaerobic Blood Culture - Final 09/26/19 09:15 Sputum, Expectorated Gram Stain - Final 09/26/19 09:15 Sputum, Expectorated Sputum Culture - Final Streptococcus pneumoniae 09/26/19 00:14 Blood Aerobic Blood Culture - Final Streptococcus pneumoniae 09/26/19 00:14 Blood Anaerobic Blood Culture - Final Streptococcus pneumoniae 09/25/19 23:40 Blood Aerobic Blood Culture - Final Streptococcus pneumoniae 09/25/19 23:40 Blood Anaerobic Blood Culture - Final Streptococcus pneumoniae 09/25/19 21:10 Urine,Clean Catch Urine Culture - Final Lactobacillus species PG Care Time/CCT Total # of Minutes Spent Total Time Spent with Patient: Total time spent is greater than 50% in coordination of care (as documented) at patient's floor/unit and/or counseling patient: (1) Pneumonia Laterality: right Lung location: upper lobe of lung Pneumonia type: due to unspecified organism Qualified Code(s): J18.9 - Pneumonia, unspecified organism
--- NOTE | 2019-10-08 14:46 | Discharge Summary ---
Date of Service October 08, 2019 Admission HPI Per Admitting Provider History obtained from patient and records. Medical history significant for anxiety/mood disorder, past alcohol abuse, ongoing tobacco abuse. Recent confinement February 2019 for alcohol withdrawal. Patient signed out AGAINST MEDICAL ADVICE. Patient decided to stop drinking about 3 weeks ago. She had an unwitnessed seizure outside her home leading to some facial trauma from hitting the sidewalk. Refused ER evaluation. At home, poor appetite, nausea/emesis without abdominal pain. Junky cough symptoms with pleuritic chest pain, S OB. At least 4 tablets of OTC NSAID taken daily for aches. At the ER, patient received Zosyn for sepsis. Medical History as above Surgical History : Cataract surgery Family History : Diabetes Personal/Social history : Pack daily, past alcohol abuse, prior work for a [employer] Principal Diagnosis SEVERE SEPSIS /PNEUMONOCCOAL BACTEREMIA /RT SIDED PNEUMONIA /EMPYEMA /LUNG ABSCESS Discharge Exam Constitutional WD/WN, vitals as above well developed and well nourished; no acute distress Eyes PERRL, conjunctivae normal, anicteric sclerae + conjunctival abnormality (conjunctival hge noted on rt eye ) ENMT Mouth: no dentition abnormality Mallampati Class: II Neck trachea midline, no thyromegaly normal visual inspection Respiratory normal respiratory effort; no respiratory distress Auscultation: + diminished lung sounds (mostly on rt side ) Cardiovascular RRR, no murmur, no edema Rate/Rhythm: regular rate and regular rhythm Heart Sounds: no gallop and no cardiac rub Extremities: no edema Gastrointestinal (Abdomen) normal bowel sounds, soft, nontender, no hepatosplenomegaly Inspection/Auscultation: normal bowel sounds Percussion/Palpation: abdomen soft; abdomen nontender Musculoskeletal no cyanosis or clubbing, extremities motor strength 5/5 Head/Neck/Chest: neck supple Extremities: strength 5/5 throughout Skin no rashes, warm and dry Trauma: + periorbital ecchymosis Neurologic PERRL, EOMI, accommodation nl, no face palsy, no dysarthria moves all extremities and awake; no meningeal signs Psychiatric A+Ox3, euthymic affect Orientation: alert and oriented x 3 Eye Contact: good eye contact Affect: + anxious affect Lymphatic no cervical or axillary lymphadenopathy no inguinal lymphadenopathy Discharge Data Allergies Allergy/AdvReac Type Severity Reaction Status Date / Time lorazepam [From Ativan] AdvReac Severe Agitated Verified 10/01/19 12:49 Consultations 09/26/19 00:15 ED Decision to Admit Stat 09/26/19 02:29 Consult Case Management - Discharge Planning Routine Consult Nephrology Routine 09/26/19 07:52 Consult Nephrology Routine 09/26/19 08:46 Consult Infectious Diseases Routine 09/26/19 09:27 Consult Neurology Routine 09/29/19 15:11 Consult Orthopedic Surgery Routine 09/30/19 05:54 Consult Pulmonology Routine 10/01/19 18:38 Consult Home And Family Living Professor Routine Procedures Performed Operation Date: 10/01/19 12:55 Actual Procedures p Evacuation of Empyema with decortication(Right) - Erik Jose MD, FACS Ordered Studies 09/25/19 21:22 CT head/brain wo con Stat US gallbladder Urgent 09/26/19 07:52 US renal/blad retro comp Routine 09/26/19 08:56 CT chest wo con Stat 09/26/19 17:31 CT orbit BI wo con Routine MR brain wo/w con Routine 09/30/19 04:02 CT abd pelvis IV con only Urgent CT chest w con Urgent 09/30/19 04:07 CT shoulder LT w con Urgent 09/30/19 13:21 US point of care ultrasound Urgent 09/30/19 15:47 CT chest wo con Urgent 10/03/19 08:33 CT chest wo con Stat 10/06/19 10:21 US venous doppler UE RT Routine Hospital Course (1) Severe sepsis: PAIN MEDICATION DEPENDENCY : pt is showing behavior of abusing narcotic pain meds ordered O.5 mg IV dilaudid q 3 hrs for chest wall pain -as pt had chest tube and lung abscess chest tube been d/christiana 4 days back on 10/04/19 , chest tube insertion area well healed does not have any cough /should not require large amount of pain meds requesting Iv dilaudid every 3 hrs iv pain meds D/christiana pt appears to be very groggy this AM monitor plan for dc home tomorrow (1) Severe sepsis: resolved clinically much improved Abx changed to pO Augmentin will need 3 weeks of tx chest tube removed on 10/04/19 SEVERE SEPSIS SECONDARY TO RT LOBE EMPYEMA / PNEUMONIA- POSSIBLE COMMUNITY ACQUIRED vs ASPIRATION FROM EMESIS Strep BACTEREMIA Blood cultures: (+) for strep pneumonia-source if infection : lungs /pneumonia /empyema Urine culture: Negative Sputum culture: Moderate normal arlet Thoracic surgery Dr. Ramirez consulted,appreciate input S/p VATS with rt sided chest tube placed on 10/01/[address] chest 10/03/2019: 1. Necrosis and developing abscess formation in the right upper lobe with surrounding persistent consolidation. 2. Significant interval improved aeration and clearance of prior consolidation in the right middle and right lower lobes. 3. Significant interval decrease in right pleural effusion status post placement of the right pleural drainage per Thoracic surgery -recommends to continue Antibiotic/does not need any surgical intervention ( chest tube ) for rt upper lobe abscess -as pt is improving clinically ID eval appreciated ; pt was on IV Unasyn abx changed to PO Augmentin will need 3 weeks of tx -scripts sent to pt;s pharmacy given presence of rt upper lobe abscess -pt will need close follow up with family physician and Ct surgery Imaging follow up -Ct chest in 2 week ANEMIA : no evidence of bleeding /cont IV Iron infusion possible anemia of chronic disease /worsened with acute illness pt denies any symptom of dizzy spell or lightheadeness given IV Venofer hb stable MCV > 100 suggestive of vitb 12 /folic acid deficienty ( hx of alcohol abuse ) ordered for thiamine /po folic acid check folate and vit b 12 level in am labs need out pt follow up with family physician strongly counselled for Alcohol Abstinence ACUTE RENAL FAILURE resolved likely Prerenal, ATN from Sepsis Nephro consulted Renal US: no obstruction Cr back to baseline HYPOKALEMIA replaced follow lytes no complain of nausea /vomiting or diarrhea LOW MG : ordered for replacement ALCOHOL WITHDRAWAL EPISODES happened mid-August after patient abstained from alcohol Neurologist consulted, EEG performed Likely secondary to withdrawal seizures HISTORY OF ALCOHOLISM last drink was in mid-August, alcohol level normal no overt signs of withdrawal IV Ativan per [facility] protocol D/christiana ABNORMAL LIVER ULTRASOUND 1. Mild gallbladder distention is noted along with mild degree of layering sludge. No cholelithiasis or sonographic evidence of acute cholecystitis. 2. No biliary ductal dilation. 3. Increased echogenicity of the liver suggests hepatic steatosis. -- LFTs ok monitor as outpatient THROMBOCYTOPENIA likely from Sepsis, Alcoholism no signs of bleeding improving RIGHT SUBCONJUNCTIVAL HEMORRHAGE improving sustained after falling, during seizure episode last month no vision problems, hemorrhage improving as per patient HYPOMAGNESEMIA replace with PO and IV Mg DVT prophylaxis SCDs, Pt is encouraged to ambulate Disposition Pt was groggy this Am now awake and alert wants to be discharged home counselling provided to avoid narcotic pain meds medically stable to be discharged home Father present at bedside Total Time Total Time Spent Total Time Spent (In Minutes): approx 35 mins Total Time Includes: Examination of the Patient, Discharge Planning and Medication Reconciliation Discharge Plan Discharge Items Patient Disposition: Home - Self-Care Reason For Visit: HYPONATREMIA, ARF, SEPSIS Discharge Diagnosis: SEVERE SEPSIS /PNEUMOCOCCAL PNEUMONIA /RT LUNG EMPYEMA /ABSCESS Activity: Resume your previous activity Non-emergency contact: Primary Care Provider Call non-emergency contact if: you have any medication questions Follow-up/Referrals: Erik Jose MD, FACS [Surgeon] - (FOLLOW UP IN CLINIC IN 2 WEEKS , PLEASE CALL TO SCHEDULE APPOINTMENT ) Stephenie Sandoval MD [Primary Care Provider] - 10/17/19 11:05 am Diet: Regular Addtl Attending Provider Instructions: IT IS VERY IMPORTANT FOR YOU TO COMPLETE ANTIBIOTIC COURSE TAKE OVER THE COUNTER PROBIOTIC WHILE TAKING ANTIBIOTIC -TO PREVENT ANTIBIOTIC ASSOCIATED GASTROENTERITIS ( C DIFF ) YOU HAVE IRON AND VITAMIN DEFICIENCY ANEMIA TAKE FOLIC ACID/VITAMIN B12 /IRON TABLETS - DAILY EAT FRESH FRUITS AND VEGETABLES WHICH ARE NATURAL SOURCE OF IRON AND VITAMINS LAB: COMPLETE BLOOD WORK , BASIC METABOLIC PANEL AND MG LEVEL ON 10/17/19 NEED TO QUIT SMOKING AND COMPLETE ABSTINENCE FROM ALCOHOL Pending Studies at Discharge: Yes Studies:: CT CHEST WITH CONTRAST IN 2 WEEKS CHEST XRAY NEXT WEEK WITH HOSPITAL VISIT AT [facility] ON 10/17/2019 Stand-Alone Forms: [facility] Acceptd, Smoking Cessation Medications and DC Order Prescriptions: New benzonatate [Tessalon Perles] 100 mg Capsule 100 mg PO TID PRN (Reason: COUGH) Qty: 90 RF: 0 folic acid 1 mg Tablet 1 mg PO QAM 30 Days Qty: 30 RF: 3 amoxicillin-pot clavulanate [Augmentin] 875-125 mg Tablet 1 tab PO BIDM 21 Days Qty: 42 RF: 0 magnesium chloride [Mag 64] 64 mg Tablet,Delayed Release (Dr/Ec) 64 mg PO BID 30 Days Qty: 60 RF: 0 Iron 100 Plus [id number] od-je-rkv-mg tablet 1 tab PO DAILY Qty: 30 RF: 3 vitamin B62-wbtfa acid 0.5-1 mg tablet 1 tab PO DAILY Qty: 30 RF: 3 Continued fluoxetine [Prozac] 20 mg capsule 60 mg PO DAILY RF: 0 aripiprazole [Abilify] 5 mg Tablet 5 mg PO DAILY RF: 0 Discharge Orders: Discharge Order (Routine); Ordered 10/08/19 Ordered By: Lyla Swift Admission Data Admit Date/Time: 09/26/19 01:26 Attending Provider: Lyla Swift Admit Provider: Erik Moser Primary Care Provider: Stephenie Sandoval Other Providers: Ganesh Vieyra ; Kong Miller ; Erik Moser ; Ena Busch ; Efrain Carter ; Sade Evans ; Lesli Navarro ; Otilia Mora ; Sahara Rodriguez ; Roman Holly
== END 2019-10-08 15:45 | disposition home or self-care (01) | DRG 853 ==
LOC: ED 19:57 → 2W 09-26 01:26 → SUATTDRO 09-26 01:26 → 2W 09-26 02:00 → 1E 10-01 18:31 → 2W 10-02 17:46

== ENCOUNTER 2019-11-19 19:00 | Inpatient (IN) ==
[2019-11-19] MEDS ORDERED: BENZONATATE 100 MG CAPSULE PO ONE (20:53)
[2019-11-19] MEDS ORDERED: PROMETHAZINE HCL 12.5 MG in SODIUM CHLORIDE 0.9% 50 ML IV STA (20:53)
[2019-11-19] MEDS ORDERED: ALBUT/IPRATROP 3MG/0.5MG NEB 3 ML VIAL NEB STA (20:53)
[2019-11-19] MEDS ORDERED: SODIUM CHLORIDE 0.9% 1000ML 1,000 ML IV SCH (21:00)
[2019-11-19] MEDS ORDERED: PROMETHAZINE 12.5 MG/50.5 ML NSS IV ONE (21:22)
[2019-11-19 21:31] LABS: Basophils # (auto) 0.03 K/uL (0-0.2); Basophils % (auto) 0.5 %; Hematocrit (blood only) 41.1 % (37-47); Hemoglobin 13.6 g/dL (12.0-16.0); Immature Granulocytes # (auto) 0.01 K/uL (0.00-0.02); Immature Granulocytes % (auto) 0.2 %; Lymphocytes % (auto) 33.7 %; Mean Corpuscular Hemoglobin 36.1 pg (25-34); Mean Corpuscular Hgb Conc 33.1 g/dL (32-36); Mean Platelet Volume 9.6 fL (7.4-10.4); Monocytes % (auto) 5.1 %; Neutrophils % (auto) 60.5 %; Platelet Count 291 K/uL (130-400); RDW Coefficient of Variation 13.1 % (11.5-14.5); RDW Standard Deviation 52.1 fL (36.4-46.3); Red Blood Count 3.77 M/uL (4.2-5.4); White Blood Count 5.94 K/uL (4.8-10.8)
[2019-11-19 21:52] LABS: BUN Creatinine Ratio 13.1 (10-20); Calcium 8.3 mg/dl (8.5-10.1); Creatinine Clr Calc Pharmacy 119.6 ml/min; Est GFR (Non-African American) 124.2; Magnesium 1.9 mg/dl (1.8-2.4); Potassium 3.2 mmol/L (3.5-5.1)
--- NOTE | 2019-11-19 21:56 | XRay Report ---
XR chest 1V portable CLINICAL HISTORY: weakness COMPARISON STUDY: 10/08/2019 FINDINGS: The cardiac and mediastinal contours remain stable. There has been marked interval improvem ent in the previously identified right lung airspace opacities. There is a small right pleural effusi on versus pleural scarring. The left lung is clear.[There is no failure. IMPRESSION: 1. Marked interval improvement in the previously identified right lung airspace opacities 2. Small right pleural effusion versus pleural scarring. ACT 112: Negative or not required by law. Electronically signed by: Mathieu Castillo M.D. 11/19/2019 9:55 PM
[2019-11-19 22:03] LABS: Appearance Urine Clear (Clear); Bilirubin Urine Negative (Negative); Blood Urine Negative (Negative); Color Urine Dark Yellow; Epithelial Cell Urine Auto >30 /lpf (0-5); Glucose Urine UA Negative (Negative); Ketones Urine Trace (Negative); Leukocyte Esterase Urine 1+ (Negative); Nitrite Urine Negative (Negative); Protein Urine Negative (Negative); RBC Urine Automated 0-4 /hpf (0-4); Urobilinogen Urine Negative (Negative); pH Urine 7.5 (4.5-7.5)
[2019-11-19 22:03] LABS: Albumin Globulin Ratio 0.7 (0.9-2); Bilirubin,Total 0.3 mg/dl (0.2-1); Globulin 4.2 gm/dl (2.5-4.0); Thyroid Stimulating Hormone 1.61 uIu/ml (0.300-4.500); Total Protein 7.2 gm/dl (6.4-8.2)
[2019-11-19 22:12] LABS: Influenza A virus by PCR Neg for Influ A (Neg); Influenza B virus by PCR Neg for Influ B (Neg)
[2019-11-19 22:17] LABS: Bacteria Urine Automated 1+ (Negative)
[2019-11-19] MEDS ORDERED: MULTI-VITAMIN INFUSION 10 ML, THIAMINE HCL 100 MG, FOLIC ACID 1 MG in SODIUM CHLORIDE 0... IV ONE (22:27)
[2019-11-19] MEDS ORDERED: OPTIRAY 320 125ml IV PRN (23:56)
--- NOTE | 2019-11-20 00:06 | Emergency Department Note ---
Entered by Mohini Bradley acting as a scribe for History of Present Illness General Chief complaint: Illness Stated complaint: PNEUMONIA Time Seen by Provider: 11/19/19 20:43 Source: patient History of Present Illness Onset (ago): week(s) (1) Location: chest Pain Consistency: + other (worsening) Maximum Pain Intensity: 4 Quality: + other (cough) Associated symptoms: + nausea/vomiting, + shortness of breath and + other (sore throat, diarrhea); no fever/chills The patient is a 29 year old female who presents to the Emergency Room with complaints of a worsening cough beginning 1 week ago. The patient reports right- sided chest pain, shortness of breath, nausea, and vomiting. She notes a sore throat for the past 2 days. She reports a small amount of diarrhea. The patient reports having pneumonia about 1 -2 months ago, and states she thinks she is getting it again. She reports she was aspirating into her lungs last time. The patient denies a fever. She denies sick contacts. She notes she received a flu shot. The patient reports she is an alcoholic and wants to detox. She states her last drink was this morning and notes she does not feel drunk. She reports her last detox was when she was in the hospital with pneumonia. She notes she has been to rehab twice. She reports she is taking a lot of vitamins due to low magnesium, iron, and potassium. The patient's dad reports the patient's kidneys were shutting down last time she was here due to the patient treating her symptoms with naproxen. Home Medications Home Medications Medication Instructions Recorded Confirmed Type fluoxetine [Prozac] 60 mg PO DAILY 11/03/18 11/19/19 History aripiprazole [Abilify] 5 mg PO DAILY 09/25/19 11/19/19 History folic acid 1 mg PO QAM 30 Days #30 tab 10/08/19 11/19/19 Rx benzonatate [Tessalon Perles] 100 mg PO TID PRN 11/19/19 11/19/19 History etonogestrel-ethinyl estradiol 1 vag ring VAGINAL DIRECTED 11/19/19 11/19/19 History [NuvaRing] magnesium chloride [Mag 64] 64 mg PO BID 11/19/19 11/19/19 History naltrexone 50 mg PO DAILY 11/19/19 11/19/19 History Allergies Allergy/AdvReac Type Severity Reaction Status Date / Time lorazepam [From Ativan] AdvReac Severe Agitated Verified 11/19/19 22:02 Past Med/Surg History Medical History Admitted to intensive care unit Alcohol withdrawal Alcohol withdrawal seizure (Inactive) Alcoholism Depression Elevated LFTs Hypophosphatemia Pulmonary abscess Sepsis (Inactive) Severe sepsis Thrombocytopenia (Inactive) Tobacco use Surgical History No pertinent past surgical history Family History Mother Diabetes Social History Preferred Language: Qatari Communication Ability: Effective Visual Impairment: Partially Limited Director Of Compensation Required: No Beliefs That Will Affect Care: None marital status: Single marital status details: Boyfriend Current Living Situation: Parent Current Living Situation Comment: father Feels Safe at Home: Yes Smoking Status: Current every day smoker Tobacco Type: cigarettes ; Cigarettes Per Day: 10 ; Second Hand Exposure: Yes ; Hx Alcohol Use: Yes Alcohol type: beer and hard liquor Alcohol Intake Frequency Comment: 6-7 daily Hx Substance Use: No Review of Systems See HPI for pertinent positives & negatives. and A total of 10 systems reviewed and were otherwise negative Physical Exam Vital Signs Vital Signs - 24 hr 11/19/19 19:03 11/19/19 20:54 11/19/19 21:25 Temperature 36.9 C Temperature Source Oral Pulse Rate 113 H Pulse Rate [Finger] 104 H Respiratory Rate 18 18 Respiratory Effort / Characteristics Non-Labored Spontaneous Respiratory Depth Respiratory Pattern Blood Pressure 121/87 Blood Pressure [Right Arm] Blood Pressure Mean 98 Blood Pressure Mean [Right Arm] Blood Pressure Position Sitting Blood Pressure Position [Right Arm] Pulse Oximetry 96 95 97 Oxygen Delivery Method Room Air Room Air Room Air Sepsis Recent Fever Within 48 Hours No Sepsis New/Unexplained Change in Mental Status No Sepsis Action Taken by Nursing No Action Required 11/19/19 22:00 Temperature Temperature Source Pulse Rate Pulse Rate [Finger] 113 H Respiratory Rate 20 Respiratory Effort / Characteristics Non-Labored Respiratory Depth Normal Respiratory Pattern Regular Blood Pressure Blood Pressure [Right Arm] 119/74 Blood Pressure Mean Blood Pressure Mean [Right Arm] 89 Blood Pressure Position Blood Pressure Position [Right Arm] Lying Pulse Oximetry 96 Oxygen Delivery Method Room Air Sepsis Recent Fever Within 48 Hours Sepsis New/Unexplained Change in Mental Status Sepsis Action Taken by Nursing GENERAL: Patient is in no acute distress. HEENT: No acute trauma, normocephalic atraumatic, mucous membranes moist, no nasal congestion, no scleral icterus. No throat erythema or exudate. NECK: No stridor, no adenopathy, no meningismus, trachea is midline. LUNGS: Clear to auscultation bilaterally, no wheeze, no rhonchi, breath sounds equal. HEART: Tachycardic rate, regular rhythm. No murmurs. ABDOMEN: Soft, nontender, bowel sounds positive, no hernias, no peritonitis. EXTREMITIES: No cyanosis or edema, full range of motion of all the joints without pain or difficulty, no signs for acute trauma. NEUROLOGIC: Oriented x 3, no acute motor or sensory deficits, no focal weakness. SKIN: No rash, no jaundice, no diaphoresis. Course Course 2044: Past medical records reviewed. The patient was evaluated in room C06. A complete history and physical exam was performed. 2249: Upon reevaluation, the patient is still in tachycardia. I ordered a CT chest. Chest CT has returned, there is no evidence for PE. The patient is still tachycardic. Given the persistent tachycardia, given the concern for alcohol withdrawal, the on-call hospitalist was consulted for potential hospitalization. Dr. Gaines was paged. Administered Medications Ioversol (Optiray 320 125ml) 125 ml IV ONCE PRN PRN Reason: Interaction Checking Stop: 11/23/19 23:55 Last Admin: 11/19/19 23:56 Dose: 82 ml Documented by: [id number] Discontinued Medications Albuterol (Duoneb) 3 ml NEB NOW STA Stop: 11/19/19 20:54 Last Admin: 11/19/19 21:23 Dose: 3 ml Documented by: [id number] Benzonatate (Tessalon Perle) 100 mg PO NOW ONE Stop: 11/19/19 20:54 Last Admin: 11/19/19 21:14 Dose: 100 mg Documented by: [id number] Sodium Chloride (Nss 1000ml) 1,000 mls @ 999 mls/hr IV .Q1H1M RUSS Stop: 11/19/19 22:00 Last Infusion: 11/19/19 22:18 Dose: 0 mls/hr Documented by: [id number] Admin: 11/19/19 21:15 Dose: 999 mls/hr Documented by: [id number] Promethazine HCl 12.5 mg/ (Sodium Chloride) 50.5 mls @ 202 mls/hr IV NOW STA Stop: 11/19/19 21:07 Last Admin: 11/19/19 21:30 Dose: Not Given Documented by: [id number] Multivitamins 10 ml/ Thiamine HCl 100 mg/ Folic Acid 1 mg/Sodium Chloride 1,011.2 mls @ 1,011.2 mls/hr IV .Q1H ONE Stop: 11/19/19 23:26 Last Admin: 11/19/19 23:46 Dose: 1,011.2 mls/hr Documented by: [id number] Promethazine HCl (Phenergan) Confirm Administered Dose 12.5 mg IV .STK-MED ONE Stop: 11/19/19 21:23 Last Admin: 11/19/19 21:30 Dose: 12.5 mg Documented by: [id number] Medical Decision Making Differential Diagnosis Differential diagnosis: pneumonia, aspiration, influenza, flu-like illness, bronchitis, dehydration, renal failure, withdrawal Medical Records Attestation: I reviewed the patient's medical records. Home Medications Current Medication List: was personally reviewed by me Laboratory Data Attestation: I reviewed the patient's lab results. Result diagrams: 11/19/19 21:12 11/19/19 21:12 Lab Results 11/19/19 11/19/19 11/19/19 Range/Units 20:56 21:12 21:12 WBC 5.94 (4.8-10.8) K/uL RBC 3.77 L (4.2-5.4) M/uL Hgb 13.6 (12.0-16.0) g/dL Hct 41.1 (37-47) % MCV 109.0 H (80-100) fL MCH 36.1 H (25-34) pg MCHC 33.1 (32-36) g/dL RDW Std Deviation 52.1 H (36.4-46.3) fL RDW Coeff of Vinod 13.1 (11.5-14.5) % Plt Count 291 (130-400) K/uL MPV 9.6 (7.4-10.4) fL Immature Gran % (Auto) 0.2 % Neut % (Auto) 60.5 % Lymph % (Auto) 33.7 % [place] % (Auto) 5.1 % Eos % (Auto) 0.0 % Baso % (Auto) 0.5 % Immature Gran # (Auto) 0.01 (0.00-0.02) K/uL Neut # (Auto) 3.60 (1.4-6.5) K/uL Lymph # (Auto) 2.00 (1.2-3.4) K/uL [place] # (Auto) 0.30 (0.11-0.59) K/uL Eos # (Auto) 0.00 (0-0.5) K/uL Baso # (Auto) 0.03 (0-0.2) K/uL Sodium 140 (136-145) mmol/L Potassium 3.2 L (3.5-5.1) mmol/L Chloride 105 (98-107) mmol/L Carbon Dioxide 25 (21-32) mmol/L Anion Gap 10.0 (3-11) BUN 8 (7-18) mg/dl Creatinine 0.61 (0.6-1.2) mg/dl Est Cr Clr Drug Dosing 119.6 ml/min Est GFR ( Amer) 144.0 Est GFR (Non-Af Amer) 124.2 BUN/Creatinine Ratio 13.1 (10-20) Glucose 106 H (70-99) mg/dl Lactate (0.4-2.0) mmol/L Calcium 8.3 L (8.5-10.1) mg/dl Magnesium 1.9 (1.8-2.4) mg/dl Total Bilirubin 0.3 (0.2-1) mg/dl AST 116 H (15-37) U/L ALT 45 (12-78) U/L Alkaline Phosphatase 114 (45-117) U/L Total Protein 7.2 (6.4-8.2) gm/dl Albumin 3.0 L (3.4-5.0) gm/dl Globulin 4.2 H (2.5-4.0) gm/dl Albumin/Globulin Ratio 0.7 L (0.9-2) TSH 1.610 (0.300-4.500) uIu/ml Urine Color Urine Appearance (Clear) Urine pH (4.5-7.5) Ur Specific [place] (1.000-1.030) Urine Protein (Negative) Urine Glucose (UA) (Negative) Urine Ketones (Negative) Urine Blood (Negative) Urine Nitrite (Negative) Urine Bilirubin (Negative) Urine Urobilinogen (Negative) Ur Leukocyte Esterase (Negative) Urine WBC (Auto) (0-5) /hpf Urine RBC (Auto) (0-4) /hpf U Hyaline Cast (Auto) (0-5) /lpf U Epithel Cells (Auto) (0-5) /lpf Urine Bacteria (Auto) (Negative) Ur Renal Epithelial Cell Ethyl Alcohol mg/dL (0-3) mg/dl Influenza Type A (PCR) Neg for Influ A (Neg) Influenza Type B (PCR) Neg for Influ B (Neg) 11/19/19 11/19/19 11/19/19 Range/Units 21:12 21:12 21:49 WBC (4.8-10.8) K/uL RBC (4.2-5.4) M/uL Hgb (12.0-16.0) g/dL Hct (37-47) % MCV (80-100) fL MCH (25-34) pg MCHC (32-36) g/dL RDW Std Deviation (36.4-46.3) fL RDW Coeff of Vinod (11.5-14.5) % Plt Count (130-400) K/uL MPV (7.4-10.4) fL Immature Gran % (Auto) % Neut % (Auto) % Lymph % (Auto) % [place] % (Auto) % Eos % (Auto) % Baso % (Auto) % Immature Gran # (Auto) (0.00-0.02) K/uL Neut # (Auto) (1.4-6.5) K/uL Lymph # (Auto) (1.2-3.4) K/uL [place] # (Auto) (0.11-0.59) K/uL Eos # (Auto) (0-0.5) K/uL Baso # (Auto) (0-0.2) K/uL Sodium (136-145) mmol/L Potassium (3.5-5.1) mmol/L Chloride (98-107) mmol/L Carbon Dioxide (21-32) mmol/L Anion Gap (3-11) BUN (7-18) mg/dl Creatinine (0.6-1.2) mg/dl Est Cr Clr Drug Dosing ml/min Est GFR ( Amer) Est GFR (Non-Af Amer) BUN/Creatinine Ratio (10-20) Glucose (70-99) mg/dl Lactate 3.4 H* (0.4-2.0) mmol/L Calcium (8.5-10.1) mg/dl Magnesium (1.8-2.4) mg/dl Total Bilirubin (0.2-1) mg/dl AST (15-37) U/L ALT (12-78) U/L Alkaline Phosphatase (45-117) U/L Total Protein (6.4-8.2) gm/dl Albumin (3.4-5.0) gm/dl Globulin (2.5-4.0) gm/dl Albumin/Globulin Ratio (0.9-2) TSH (0.300-4.500) uIu/ml Urine Color Dark Yellow Urine Appearance Clear (Clear) Urine pH 7.5 (4.5-7.5) Ur Specific [place] 1.030 (1.000-1.030) Urine Protein Negative (Negative) Urine Glucose (UA) Negative (Negative) Urine Ketones Trace H (Negative) Urine Blood Negative (Negative) Urine Nitrite Negative (Negative) Urine Bilirubin Negative (Negative) Urine Urobilinogen Negative (Negative) Ur Leukocyte Esterase 1+ H (Negative) Urine WBC (Auto) 5-10 H (0-5) /hpf Urine RBC (Auto) 0-4 (0-4) /hpf U Hyaline Cast (Auto) 1-5 (0-5) /lpf U Epithel Cells (Auto) >30 H (0-5) /lpf Urine Bacteria (Auto) 1+ H (Negative) Ur Renal Epithelial Cell Not Reportable Ethyl Alcohol mg/dL 295.8 H (0-3) mg/dl Influenza Type A (PCR) (Neg) Influenza Type B (PCR) (Neg) Imaging Data Radiologist's Impression: Radiology results as stated below per my review and the radiologist's interpretation: XR chest 1V portable CLINICAL HISTORY: weakness COMPARISON STUDY: 10/08/2019 FINDINGS: The cardiac and mediastinal contours remain stable. There has been marked interval improvement in the previously identified right lung airspace opacities. There is a small right pleural effusion versus pleural scarring. The left lung is clear.[There is no failure. IMPRESSION: 1. Marked interval improvement in the previously identified right lung airspace opacities 2. Small right pleural effusion versus pleural scarring. ACT 112: Negative or not required by law. Electronically signed by: Mathieu Castillo M.D. 11/19/2019 9:[address]: Negative for PE. Small right pleural effusion. Atelectasis/scarring in the right upper lobe and trace fluid in the right major fissure. ECG Data Attestation: I personally reviewed and interpreted this ECG as follows: Indication: + SOB/dyspnea Rate (beats per minute): 119 Rhythm: + sinus tachycardia ECG Intervals/blocks: + Normal QT-c (467) ECG ST segments: no ST elevation ECG Findings: no PVCs MDM Narrative There is no leukocytosis or concerning anemia. The patient has a normal p latelet count. No renal failure or significant electrolyte abnormality. Lactic acid level is somewhat elevated, likely consistent with dehydration. AST mildly elevated, the bilirubin was normal. The patient appeared to be in a euthyroid state. Urinalysis does not show evidence for infection, some contamination was seen. Influenza testing was negative. Alcohol level was quite elevated at 295. Chest film shows some likely chronic findings on the right, the pneumonia appears to have improved significantly. No acute focal infiltrate was seen on the right. No pneumothorax. EKG shows a sinus tachycardia, no acute ischemia. Chest CT does not show evidence for PE, no pneumonia. Atelectasis and scarring was seen. Patient was given a DuoNeb. She received IV Phenergan for nausea. She was given IV saline. She was then given a liter of saline with multivitamins, thiamine and folate. She was given oral Tessalon. The patient is currently resting comfortably although she is still tachycardic. Given her pain, given the persistent tachycardia, given her dyspnea, given the concern for alcohol withdrawal, a hospital stay was felt warranted. The patient has had DTs and seizures before from alcohol withdrawal. In short, the cause of the chest pain is likely from her previous pneumonia and infection. Scar tissue has formed. Continuous Cardiac Monitoring: An order was placed for continuous cardiac monitoring. The monitor shows a rate of 113 with sinus tachycardia. Impression & Plan Right-sided chest pain, Alcohol abuse, SOB (shortness of breath), Tachycardia Discharge Plan Visit Data Chief Complaint: Illness Stated Complaint: PNEUMONIA ED Provider: Alejandro Cain Discharge Problem: Right-sided chest pain, Alcohol abuse, SOB (shortness of breath), Tachycardia Forms Stand Alone Forms: My [facility] Prescriptions Prescriptions: No Action fluoxetine [Prozac] 20 mg capsule 60 mg PO DAILY RF: 0 aripiprazole [Abilify] 5 mg Tablet 5 mg PO DAILY RF: 0 folic acid 1 mg Tablet 1 mg PO QAM 30 Days Qty: 30 RF: 3 naltrexone 50 mg tablet 50 mg PO DAILY RF: 0 etonogestrel-ethinyl estradiol [NuvaRing] 0.12-0.015 mg/24 hr ring 1 vag ring VAGINAL DIRECTED RF: 0 magnesium chloride [Mag 64] 64 mg tablet,delayed release (DR/EC) 64 mg PO BID RF: 0 benzonatate [Tessalon Perles] 100 mg capsule 100 mg PO TID PRN (Reason: Cough) RF: 0 The scribe's documentation has been prepared under my direction and personally reviewed by me in its entirety. I confirm that the note above accurately reflects all work, treatment, procedures, and medical decision making performed by me.
[2019-11-20] MEDS ORDERED: NITROGLYCERIN SL 0.4 MG/TAB TAB SL PRN (02:58)
[2019-11-20] MEDS ORDERED: ACETAMINOPHEN 325 MG TAB PO PRN (02:58)
[2019-11-20] MEDS ORDERED: ATIVAN IV ALCOHOL WITHDRAWL IV PRN (02:58)
[2019-11-20] MEDS ORDERED: BENZONATATE 100 MG CAPSULE PO PRN ×2 (02:58→13:24)
[2019-11-20] MEDS ORDERED: POTASSIUM CHLORIDE 20 MEQ TABCR PO STA (02:58)
[2019-11-20] MEDS ORDERED: LORazepam 3 MG/6 ML VIAL IV PRN (02:58)
[2019-11-20] MEDS ORDERED: GABAPENTIN 1200MG ALCOHOL WITHDRAWAL LOAD PO STA (02:58)
[2019-11-20] MEDS ORDERED: GABAPENTIN 600 MG TAB PO SCH (03:15)
--- NOTE | 2019-11-20 04:41 | History and Physical Report ---
DATE OF ADMISSION: 11/19/2019 CHIEF COMPLAINT: Cough and alcoholism. HISTORY OF PRESENT ILLNESS: This is a 29-year-old female with past medical history significant for alcoholism, anxiety, mood disorder, ongoing tobacco abuse. The patient had multiple admissions for alcoholism and she also has seizure thought to be from alcohol withdrawal. The patient was recently admitted in the hospital on 09/26/2019 and discharged 10/08/2019. At that time, she was found to have right upper lobe pneumonia and lung abscess, possible aspiration, status post VATS procedure, severe sepsis and was in the ICU. discharged on Augmentin for 3 weeks. The patient also followed with CT Surgery, seems to be doing fine, but she is still drinking. She says she drinks 3 big cans of beer every day. Since last 1 week, she is having cough, not bringing any phlegm, but having chest pain. When she is coughing, she has pain in chest and pain is more when taking deep breath. Also she has had some nausea, vomiting and diarrhea. No blood in stools or black stools. No hematuria or burning micturition. Currently resting comfortably and hemodynamically stable, somewhat tachycardic. Alcohol level in 290s. Denies any headache, no dizziness, no blurred vision, no earache, no runny nose. Has some sore throat. Appetite is poor. The patient wants to get detoxed in the hospital, but does not want to go to rehab. ALLERGIES: ATIVAN, but she tolerated in the past. PAST MEDICAL HISTORY: As mentioned above. PAST SURGICAL HISTORY: Recent VATS procedure. FAMILY HISTORY: Significant for diabetes. Mother had diabetes. SOCIAL HISTORY: Currently lives with her dad. Smokes 10 cigarettes daily. Drinking alcohol 3 big cans daily. No drug abuse. MEDICATIONS: The patient is on Abilify 5 mg p.o. daily, Tessalon Perles 100 mg p.o. t.i.d. p.r.n., NuvaRing as directed, Prozac 60 mg p.o. daily, folic acid 1 mg p.o. daily, magnesium 64 mg p.o. b.i.d., naltrexone 50 mg p.o. daily. REVIEW OF SYSTEMS: As per HPI. Rest of review of systems are negative. PHYSICAL EXAMINATION: GENERAL: The patient is of moderate build, not in acute distress. VITAL SIGNS: Temperature 36.9, pulse 113, respiratory rate 20, blood pressure 119/74, oxygen 96% room air. HEENT: Pupils equal, round, reactive to light. NECK: Supple. No neck masses. CARDIOVASCULAR: S1, S2 heard. Tachycardia. No murmurs. RESPIRATORY SYSTEM: Normal AP diameter. No accessory muscle use. No wheezing, no crackles. ABDOMEN: Soft, bowel sounds present, nontender. No distention. CENTRAL NERVOUS SYSTEM: Alert and oriented. Nonfocal. EXTREMITIES: No edema, no erythema. LABORATORY DATA: WBC 5.9, hemoglobin 13.6, hematocrit 41.1, platelets 291. Sodium 140, potassium 3.2, chloride 105, bicarb 25, BUN 8, creatinine 0.6, serum glucose 116, lactate 3.4, calcium 8.3, magnesium 1.9. Total bilirubin 0.3, AST 116, ALT 45, alkaline phosphatase 114. TSH is 1.6. Urinalysis, positive for leukocyte esterase. Ethyl alcohol 295. Influenza A and B PCR negative. IMAGING: Chest x-ray: Marked interval improvement in the previously identified lung airspace opacities, small right pleural effusion versus pleural scarring. CT of the chest: No PE, small right pleural effusion, atelectasis and scarring in the right upper lobe and trace fluid in the right major fissure. ASSESSMENT AND PLAN: This is a 29-year-old female who recently was in the hospital with fever, sepsis and right upper lobe pneumonia and abscess status post VATS procedure, comes with ongoing cough for 1 week and alcoholism. 1. Cough. Recent lung abscess status post VATS procedure, afebrile, no leukocytosis. CT scan, no obvious infection, but with recent significant infection we will monitor in the hospital and ask CT Surgery to evaluate in a.m. 2. Alcoholism. history of alcoholism and withdrawal in the past, history of alcohol withdrawal seizures.Alcohol level 290. We will place on gabapentin protocol and IV Ativan active protocol. The patient has banana bag in the ER. We will continue with thiamine, folic acid and multivitamins daily. On naltrexone. Closely monitor. 3. Possible urinary tract infection. We will place on IV Rocephin, follow the cultures. 4. Elevated lactate, possibly from the alcoholism. We will follow repeat labs. 5. Hypokalemia. We will replace. 6. Anxiety, mood disorder. Continue her home medications. 7. Deep vein thrombosis prophylaxis. SCDs. DISPOSITION: Admit to med/surg tele. Level 1 full code. Expect to discharge home and follow with family doctor. Level 1 full code. MTDD
--- NOTE | 2019-11-20 06:55 | CT Scan Report ---
CT angio chest PE protocol CT DOSE: 227.19 mGy.cm HISTORY: 29 years-old Female with PE. Acute chest pain with clinical concern for pulmonary embolus TECHNIQUE: Multiple CTA images of the chest were obtained after the intravenous administration of 119 ml Optiray 320. Coronal and sagittal MIPS were obtained from the axial data set and were submitted for review. All measurements were obtained according to NASCET criteria. A dose lowering technique w as utilized adhering to the principles of ALARA. COMPARISON: Chest CT 10/03/2019 FINDINGS: CTA: Heart is normal in size without pericardial effusion. Thoracic aorta is normal in course and caliber without aneurysm or dissection. There is patency of the imaged great vessels. The pulmonary arterial tree is opacified to level of the subsegmental branches and demonstrates no filling defects to sugges t pulmonary thromboembolic disease. CT CHEST: Unremarkable thyroid. No adenopathy by CT size criteria. Small right pleural effusion. There is no pn eumothorax. The left lung is generally clear with only minimal dependent subsegmental left basilar at electasis. Linear pleural parenchymal scarring of the right upper lobe with linear consolidative opac ities measuring up to approximately 2.4 cm. There is a 6 mm cystic focus noted on image 142 series 4 within an area of adjacent scarring. There is marked improved aeration of the right upper lobe from c omparison CT dated 10/03/2019 with resolution of the previously described pulmonary abscess/empyema. No airspace consolidation of the right lung typical for pneumonia. Central airways appear patent. Nonspecific distal esophageal wall thickening with possible tiny hiatal hernia. Hepatic steatosis. Th e breast parenchyma and soft tissues appear unremarkable. The bones appear intact. IMPRESSION: 1. No evidence of pulmonary thromboembolic disease. 2. Small right pleural effusion with markedly improved aeration of the right lung from comparison [place] dated 10/03/2019. Linear subpleural consolidative opacities throughout the right midlung are sugge stive of pleural-parenchymal scarring. No definite evidence of pneumonia. 3. Mild wall thickening of the distal esophagus with probable tiny hiatal hernia. 4. Hepatic steatosis. ACT 112: Negative or not required by law. The above report was generated using voice recognition software. It may contain grammatical, syntax o r spelling errors. Electronically signed by: Yoshi Rawls M.D. 11/20/2019 6:54 AM
[2019-11-20] MEDS: cefTRIAXone SODIUM 1,000 MG in DEXTROSE 5% 50 ML IV SCH (07:17)
[2019-11-20 08:08] LABS: Alanine Aminotransferase 42 U/L (12-78); Albumin Level 2.4 gm/dl (3.4-5.0); Alkaline Phosphatase 101 U/L (45-117); Aspartate Aminotransferase 140 U/L (15-37); Bilirubin Direct < 0.1 mg/dl (0-0.2); Bilirubin,Total 0.3 mg/dl (0.2-1); Total Protein 5.9 gm/dl (6.4-8.2)
[2019-11-20] MEDS: FOLIC ACID 1 MG TAB PO SCH (08:16)
[2019-11-20] MEDS: ARIPiprazole 5 MG TAB PO SCH (08:16)
[2019-11-20] MEDS: CEROVITE ADV FORMULA TAB PO SCH (08:16)
[2019-11-20] MEDS: NALTREXONE HCL 50 MG TAB PO SCH (08:16)
[2019-11-20] MEDS: MAGNESIUM CHLORIDE 64MG DELAYED REL TAB PO SCH ×2 (08:17→20:28)
[2019-11-20] MEDS: FLUOXETINE HCL 20 MG CAP PO SCH (08:17)
[2019-11-20] MEDS: THIAMINE HCL 100 MG TAB PO SCH (08:17)
[2019-11-20 09:22] LABS: Folate (Folic Acid) > 24.00 ng/ml (>5.38); Vitamin B12 382 pg/ml (211-911)
[2019-11-20] MEDS: GABAPENTIN 600 MG TAB PO SCH ×3 (09:51→23:31)
[2019-11-20] MEDS: ONDANSETRON INJ 2 MG/ML 2 ML VIAL IV PRN ×2 (11:17→18:46)
--- NOTE | 2019-11-20 12:56 | Consultation Report ---
DATE OF CONSULTATION: 11/20/2019 I know Edna well. She had a terrible lung abscess with an empyema and underwent a decortication back on 10/01/2019. Slowly but surely she recovered from this and I saw her in the office back on the and I was quite pleased with her. Now today with a cough. She was tachycardic; however, she remains tachycardic and was tachycardic for much of her hospitalization her last visit. At any rate, she sounds good. Incisions are clean. Her CT scan actually looks quite good. At this point, I have nothing to add from a thoracic surgery standpoint.
--- NOTE | 2019-11-20 17:46 | Electrocardiogram Report ---
Test Reason : Blood Pressure : / mmHG Vent. Rate : 119 BPM Atrial Rate : 119 BPM P-R Int : 148 ms QRS Dur : 070 ms QT Int : 332 ms P-R-T Axes : 062 064 055 degrees QTc Int : 467 ms Sinus tachycardia Possible Left atrial enlargement Borderline ECG When compared with ECG of 01-OCT-2019 19:00, Nonspecific T wave abnormality no longer evident in Inferior leads T wave amplitude has increased in Anterior leads Confirmed by Yonny Gannon ([id number]) on 11/20/2019 5:45:58 PM Referred By: REFERRED SELF Confirmed By:Simone Gannon
--- NOTE | 2019-11-20 18:42 | Communication Note ---
Date of Service: November 20, 2019 Pt was seen and examined Lying in bed with dad at bedside Pt said that she is tired and cannot fall a sleep She said that she has been coughing Whenever she coughs, she does have tenderness in her right side of her ribs Denies any hallucination, dizziness and SOB Exam General- No acute distress Head- atraumatic Eyes- PERRL, EOMI, +mild horizontal nystagmus ENT- oropharynx clear Neck- supple, no JVD Lungs- clear to auscultation Heart- regular rhythm; no murmur Abdomen- normal bowel sounds, soft, nontender Extremities- no calf tenderness, + tremor Neuro- alert, oriented x 3; PERRL, EOMI; no facial palsy; no dysarthria, Mild nystagmus Skin- warm & dry A/P Alcohol Intoxication Alcohol level on admission 295 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 Small right pleural effusion with markedly improved aeration of the right lung from comparison study dated 10/03/2019. Linear subpleural consolidative opacities throughout the right midlung are suggestive of pleural-parenchymal scarring. No definite evidence of pneumonia. Thoracic surgery on board and no further testing required Continue Tessalon perles prn UTI Urine cx positive for gram negative bacilli Continue Rocephin IV Will follow final urine cx and sensitivity Code status Full code
[2019-11-20] MEDS: LORazepam 1 MG/2 ML VIAL IV PRN (18:46)
[2019-11-21] MEDS: guaiFENesin SUGAR FREE 200 MG/10 ML UDC PO PRN (00:29)
[2019-11-21] MEDS: LORazepam 1 MG/2 ML VIAL IV PRN ×2 (04:58→07:30)
[2019-11-21] MEDS: cefTRIAXone SODIUM 1,000 MG in DEXTROSE 5% 50 ML IV SCH (06:19)
[2019-11-21] MEDS: THIAMINE HCL 100 MG TAB PO SCH (07:55)
[2019-11-21] MEDS: CEROVITE ADV FORMULA TAB PO SCH (07:55)
[2019-11-21] MEDS: GABAPENTIN 600 MG TAB PO SCH ×2 (07:55→16:18)
[2019-11-21] MEDS: MAGNESIUM CHLORIDE 64MG DELAYED REL TAB PO SCH ×2 (07:55→20:27)
[2019-11-21] MEDS: FLUOXETINE HCL 20 MG CAP PO SCH (07:56)
[2019-11-21] MEDS: NALTREXONE HCL 50 MG TAB PO SCH (07:56)
[2019-11-21] MEDS: FOLIC ACID 1 MG TAB PO SCH (07:56)
[2019-11-21] MEDS: ARIPiprazole 5 MG TAB PO SCH (07:56)
[2019-11-21] MEDS: LORazepam 2 MG/4 ML VIAL IV PRN ×3 (09:43→14:02)
[2019-11-21 10:42] LABS: BUN Creatinine Ratio 2.5 (10-20); Creatinine Clr Calc Pharmacy 84.8 ml/min; Est GFR (African American) 107.3; Est GFR (Non-African American) 92.6; Potassium 3.7 mmol/L (3.5-5.1)
[2019-11-21] MEDS ORDERED: DIAZEPAM 5 MG/ML INJ 10ML VIAL IV PRN (18:42)
--- NOTE | 2019-11-21 19:00 | Hospitalist Progress Note ---
Date of Service November 21, 2019 Assessment & Plan (1) Alcohol abuse: Alcohol Intoxication Alcohol level on admission 295 Hx of seizure related to alcohol withdrawn Continue Gabapentin/Ativan/Libruim alcohol withdrawn protocol Will monitor closely for signs of withdrawn Pt said that she might consider to go to alcohol rehab No Ativan to be given because pt became agitated after receiving the ativan as per dad Ok to give Valium if needed Continue Folic acid and Thiamine Cough CTA chest showed no evidence of pulmonary thromboembolic disease. Small right pleural effusion with markedly improved aeration of the right lung from comparison study dated 10/03/2019. Linear subpleural consolidative opacities throughout the right midlung are suggestive of pleural-parenchymal scarring. No definite evidence of pneumonia. Thoracic surgery on board and no further testing required Continue Tessalon perles prn UTI Urine cx positive for gram negative bacilli (Klebsiella Pneumonia) Continue Rocephin IV Will transition to oral abx on discharge Tachycardia Possible related to alcohol withdrawn Continue monitor Elevated Lactake Mostly related to alcohol itoxication Continue IVF Resolved Code status Full code Subjective Pt was seen and examined Lying in bed with no distress Pt received Ativan this morning and had hallucinations She said that early she felt like she was in the forest Spoke to dad and he said that whenever pt got Ativan she became combative dad will appreciate if we can avoid Ativan on her Currently pt is calm and cooperate Denies any chest pain, palpitation, dizziness and SOB Physical Exam Physical Exam: General- No acute distress Head- atraumatic Eyes- PERRL, EOMI, +mild horizontal nystagmus ENT- oropharynx clear Neck- supple, no JVD Lungs- clear to auscultation Heart- +tachycardia; no murmur Abdomen- normal bowel sounds, soft, nontender Extremities- no calf tenderness, + tremor Neuro- alert, oriented x 3; PERRL, EOMI; no facial palsy; no dysarthria, Mild nystagmus Skin- warm & dry Results & Data ([facility]) Vital Signs (Past 12 Hours) Vital Signs Temp Pulse Pulse Resp BP Pulse Ox 11/21/19 16:40 36.8 C 104 H 119 H 18 119/88 99 11/21/19 16:11 36.7 C 117 H 17 127/90 98 11/21/19 15:06 117 H 11/21/19 13:59 36.9 C 147 H 20 115/87 11/21/19 12:09 37.3 C 129 H 20 124/76 96 11/21/19 10:53 36.8 C 132 H 20 116/86 11/21/19 09:39 36.8 C 134 H 20 126/80 98 11/21/19 07:20 98 H 11/21/19 07:09 37.0 C 107 H 20 134/94 95
[2019-11-21] MEDS ORDERED: DIAZEPAM 5 MG/ML INJ 10ML VIAL IV STA ×2 (21:36→23:44)
[2019-11-22] MEDS ORDERED: ATIVAN IV ALCOHOL WITHDRAWL IV PRN (04:28)
[2019-11-22] MEDS ORDERED: LORazepam 3 MG/6 ML VIAL IV PRN (04:28)
[2019-11-22] MEDS ORDERED: LORazepam 1 MG/2 ML VIAL IV PRN (04:28)
--- NOTE | 2019-11-22 04:29 | Communication Note ---
Date of Service: November 22, 2019 Made aware by RN of patient desire to go home. Patient more restless as per RN. Visual hallucinations as per patient. AP Alcohol withdrawal Ativan PRN (Patient father agreeable to utilizing Ativan for agitation following AWSS protocol for now. He initially had concerns about medication possibly causing patient's hallucinations/confusion during previous confinements for alcohol withdrawal. Patient agreeable to staying in the hospital for now.)
[2019-11-22] MEDS: NICOTINE 14 MG/24 HR PATCH TD SCH (05:33)
[2019-11-22] MEDS: cefTRIAXone SODIUM 1,000 MG in DEXTROSE 5% 50 ML IV SCH (05:33)
[2019-11-22] MEDS: LORazepam 2 MG/4 ML VIAL IV PRN ×7 (05:33→23:40)
[2019-11-22] MEDS: GABAPENTIN 600 MG TAB PO SCH ×2 (05:34→17:14)
[2019-11-22] MEDS: FOLIC ACID 1 MG TAB PO SCH (08:19)
[2019-11-22] MEDS: CEROVITE ADV FORMULA TAB PO SCH (08:19)
[2019-11-22] MEDS: THIAMINE HCL 100 MG TAB PO SCH (08:20)
[2019-11-22] MEDS: FLUOXETINE HCL 20 MG CAP PO SCH (08:20)
[2019-11-22] MEDS: ARIPiprazole 5 MG TAB PO SCH (08:20)
[2019-11-22] MEDS: NALTREXONE HCL 50 MG TAB PO SCH (08:20)
[2019-11-22] MEDS: MAGNESIUM CHLORIDE 64MG DELAYED REL TAB PO SCH ×2 (08:21→20:33)
[2019-11-22] MEDS: guaiFENesin SUGAR FREE 200 MG/10 ML UDC PO PRN (08:21)
--- NOTE | 2019-11-22 19:28 | Hospitalist Progress Note ---
Date of Service November 22, 2019 Assessment & Plan (1) Alcohol abuse: Alcohol Intoxication Alcohol Withdrawal Alcohol level on admission 295 Hx of seizure related to alcohol withdrawn Continue Gabapentin/Ativan/Libruim alcohol withdrawn protocol Will monitor closely for signs of withdrawn Pt said that she might consider to go to alcohol rehab Continue alcohol withdrawal with Ativan/Librium/gabapentin Will monitor closely for DT Continue Folic acid and Thiamine Continue 1 to 1 observation Will need alcohol rehab since this is her 5th times treated for alcohol withdraw as per dad Cough CTA chest showed no evidence of pulmonary thromboembolic disease. Small right pleural effusion with markedly improved aeration of the right lung from comparison study dated 10/03/2019. Linear subpleural consolidative opacities throughout the right midlung are suggestive of pleural-parenchymal scarring. No definite evidence of pneumonia. Thoracic surgery on board and no further testing required Continue Tessalon perles prn UTI Urine cx positive for gram negative bacilli (Klebsiella Pneumonia) Continue Rocephin IV Will transition to oral abx on discharge Tachycardia Possible related to alcohol withdrawn Continue monitor Elevated Lactake Mostly related to alcohol intoxication Continue IVF Resolved Code status Full code Disposition Continue monitor closely Will need placement to alcohol rehab Subjective Pt was seen and examined She has been walking in her room She is on one to one sitter Nurse said that she has been required a lot of Ativan Denies any chest pain, palpitation, dizziness and SOB Physical Exam Physical Exam: General- No acute distress Head- atraumatic Eyes- PERRL, EOMI, +mild horizontal nystagmus ENT- oropharynx clear Neck- supple, no JVD Lungs- clear to auscultation Heart- +tachycardia; no murmur Abdomen- normal bowel sounds, soft, nontender Extremities- no calf tenderness, + tremor Neuro- alert, oriented x 3; PERRL, EOMI; no facial palsy; no dysarthria, Mild nystagmus Skin- warm & dry Results & Data ([facility]) Vital Signs (Past 12 Hours) Vital Signs Temp Pulse Pulse Resp BP Pulse Ox 11/22/19 15:26 124 H 11/22/19 11:17 36.7 C 115 H 16 117/83 97 11/22/19 08:00 126 H 11/22/19 07:41 130 H 11/22/19 07:37 36.5 C 65 18 121/89 95
[2019-11-23] MEDS: LORazepam 2 MG/4 ML VIAL IV PRN ×5 (02:26→23:02)
[2019-11-23] MEDS ORDERED: LORazepam 4 MG/8 ML VIAL IV STA (04:55)
[2019-11-23] MEDS ORDERED: ATIVAN IV ALCOHOL WITHDRAWL IV PRN (05:04)
[2019-11-23] MEDS ORDERED: LORazepam 3 MG/6 ML VIAL IV PRN (05:04)
[2019-11-23] MEDS ORDERED: LORazepam 1 MG/2 ML VIAL IV PRN (05:04)
[2019-11-23] MEDS ORDERED: SODIUM CHLORIDE 0.9% 500 ML IV ONE (05:07)
[2019-11-23] MEDS ORDERED: MAGNESIUM SULFATE / D5W 1 GM/100 ML BAG IV ONE (05:30)
[2019-11-23] MEDS: ARIPiprazole 5 MG TAB PO SCH (06:36)
[2019-11-23 06:58] LABS: Basophils # (auto) 0.01 K/uL (0-0.2); Basophils % (auto) 0.1 %; Eosinophils # (auto) 0.07 K/uL (0-0.5); Eosinophils % (auto) 0.9 %; Hematocrit (blood only) 37.4 % (37-47); Hemoglobin 12.3 g/dL (12.0-16.0); Immature Granulocytes # (auto) 0.01 K/uL (0.00-0.02); Immature Granulocytes % (auto) 0.1 %; Lymphocytes # (auto) 2.14 K/uL (1.2-3.4); Lymphocytes % (auto) 27.6 %; Mean Corpuscular Hemoglobin 36.4 pg (25-34); Mean Corpuscular Hgb Conc 32.9 g/dL (32-36); Mean Corpuscular Volume 110.7 fL (80-100); Mean Platelet Volume 10.3 fL (7.4-10.4); Monocytes # (auto) 0.39 K/uL (0.11-0.59); Neutrophils # (auto) 5.12 K/uL (1.4-6.5); Neutrophils % (auto) 66.3 %; Platelet Count 215 K/uL (130-400); RDW Standard Deviation 52.4 fL (36.4-46.3); Red Blood Count 3.38 M/uL (4.2-5.4); White Blood Count 7.74 K/uL (4.8-10.8)
[2019-11-23] MEDS: cefTRIAXone SODIUM 1,000 MG in DEXTROSE 5% 50 ML IV SCH (07:32)
[2019-11-23 07:34] LABS: Albumin Level 3.2 gm/dl (3.4-5.0); BUN Creatinine Ratio 8.9 (10-20); Calcium 9.3 mg/dl (8.5-10.1); Est GFR (African American) 130.8; Est GFR (Non-African American) 112.9; Magnesium 1.9 mg/dl (1.8-2.4); Potassium 3.7 mmol/L (3.5-5.1)
[2019-11-23] MEDS: NALTREXONE HCL 50 MG TAB PO SCH (07:35)
[2019-11-23] MEDS: FOLIC ACID 1 MG TAB PO SCH (07:35)
[2019-11-23] MEDS: FLUOXETINE HCL 20 MG CAP PO SCH (07:35)
[2019-11-23] MEDS: THIAMINE HCL 100 MG TAB PO SCH (07:35)
[2019-11-23 07:36] LABS: Albumin Globulin Ratio 0.7 (0.9-2); Bilirubin,Total 0.7 mg/dl (0.2-1); Globulin 4.4 gm/dl (2.5-4.0); Total Protein 7.6 gm/dl (6.4-8.2)
[2019-11-23] MEDS: MAGNESIUM CHLORIDE 64MG DELAYED REL TAB PO SCH ×2 (07:36→20:13)
[2019-11-23] MEDS: CEROVITE ADV FORMULA TAB PO SCH (07:36)
[2019-11-23 07:39] LABS: Macrocytosis Present
[2019-11-23] MEDS: NICOTINE 14 MG/24 HR PATCH TD SCH (07:39)
[2019-11-23] MEDS ORDERED: POTASSIUM CHLORIDE 20 MEQ TABCR PO STA (08:11)
[2019-11-23] MEDS: guaiFENesin SUGAR FREE 200 MG/10 ML UDC PO PRN (17:24)
[2019-11-23] MEDS ORDERED: GABAPENTIN 600 MG TAB PO SCH (18:00)
--- NOTE | 2019-11-23 18:56 | Hospitalist Progress Note ---
Date of Service November 23, 2019 Assessment & Plan (1) Alcohol abuse: Alcohol Intoxication Alcohol Withdrawal Alcohol level on admission 295 Hx of seizure related to alcohol withdrawn Continue Gabapentin/Ativan/Libruim alcohol withdrawn protocol Will monitor closely for signs of withdrawn Pt said that she might consider to go to alcohol rehab On alcohol withdrawal with Ativan/Librium/gabapentin Completed gabapentin course today Will titrate Librium to BId Will monitor closely for DT Continue Folic acid and Thiamine Continue 1 to 1 observation Will need alcohol rehab since this is her 5th times treated for alcohol withdraw as per dad Cough CTA chest showed no evidence of pulmonary thromboembolic disease. Small right pleural effusion with markedly improved aeration of the right lung from comparison study dated 10/03/2019. Linear subpleural consolidative opacities throughout the right midlung are suggestive of pleural-parenchymal scarring. No definite evidence of pneumonia. Thoracic surgery on board and no further testing required Continue Tessalon perles prn UTI Urine cx positive for gram negative bacilli (Klebsiella Pneumonia) On Rocephin IV Will transition to oral keflex for 2 more days Tachycardia Moslty related to alcohol withdrawn resolved Will d/c tele monitor r Elevated Lactate Mostly related to alcohol intoxication Continue IVF Resolved Code status Full code Disposition Continue monitor closely Will need placement to alcohol rehab Subjective Pt was seen and examined Lying in bed with no distress with dad and 1 to 1 sitter Pt is cooperative today She slept and feel less anxious today She has some confusion on/off today Denies any chest pain, palpitation, dizziness and SOB Physical Exam Physical Exam: General- No acute distress Head- atraumatic Eyes- PERRL, EOMI, +very mild horizontal nystagmus ENT- oropharynx clear Neck- supple, no JVD Lungs- clear to auscultation Heart- regular; no murmur Abdomen- normal bowel sounds, soft, nontender Extremities- no calf tenderness, +mild tremor Neuro- alert, oriented x 3; PERRL, EOMI; no facial palsy; no dysarthria, Mild nystagmus Skin- warm & dry Results & Data ([facility]) Vital Signs (Past 12 Hours) Vital Signs Temp Pulse Pulse Resp BP Pulse Ox 11/23/19 15:57 87 11/23/19 15:43 36.5 C 109 H 20 123/87 100 11/23/19 10:55 36.9 C 102 H 20 118/81 98 11/23/19 07:00 112 H
[2019-11-23] MEDS: ONDANSETRON INJ 2 MG/ML 2 ML VIAL IV PRN (19:22)
[2019-11-24] MEDS: LORazepam 2 MG/4 ML VIAL IV PRN (04:32)
[2019-11-24] MEDS: THIAMINE HCL 100 MG TAB PO SCH (08:14)
[2019-11-24] MEDS: FOLIC ACID 1 MG TAB PO SCH (08:14)
[2019-11-24] MEDS: CEROVITE ADV FORMULA TAB PO SCH (08:14)
[2019-11-24] MEDS: ARIPiprazole 5 MG TAB PO SCH (08:14)
[2019-11-24] MEDS: MAGNESIUM CHLORIDE 64MG DELAYED REL TAB PO SCH ×2 (08:14→20:38)
[2019-11-24] MEDS: FLUOXETINE HCL 20 MG CAP PO SCH (08:14)
[2019-11-24] MEDS: NALTREXONE HCL 50 MG TAB PO SCH (08:14)
[2019-11-24] MEDS: cephALEXin 500 MG CAP PO SCH ×2 (08:15→20:37)
[2019-11-24] MEDS: NICOTINE 14 MG/24 HR PATCH TD SCH (08:15)
[2019-11-24] MEDS: guaiFENesin SUGAR FREE 200 MG/10 ML UDC PO PRN (15:57)
--- NOTE | 2019-11-24 18:24 | Hospitalist Progress Note ---
Date of Service November 24, 2019 Assessment & Plan (1) Alcohol abuse: Alcohol Intoxication Alcohol Withdrawal Alcohol level on admission 295 Hx of seizure related to alcohol withdrawn Continue Gabapentin/Ativan/Libruim alcohol withdrawn protocol Will monitor closely for signs of withdrawn Pt said that she might consider to go to alcohol rehab On alcohol withdrawal with Ativan/Librium/gabapentin Completed gabapentin course today Librium decreased to 5mg BID, then discontinued Already pass the window for DT Continue Folic acid and Thiamine 1 to 1 observation discontinued Will need alcohol rehab since this is her 5th times treated for alcohol withdraw as per dad Clinically stable to discharge to rehab Cough CTA chest showed no evidence of pulmonary thromboembolic disease. Small right pleural effusion with markedly improved aeration of the right lung from comparison study dated 10/03/2019. Linear subpleural consolidative opacities throughout the right midlung are suggestive of pleural-parenchymal scarring. No definite evidence of pneumonia. Thoracic surgery on board and no further testing required Continue Tessalon perles prn UTI Urine cx positive for gram negative bacilli (Klebsiella Pneumonia) On Rocephin IV Complete course of oral keflex Tachycardia Moslty related to alcohol withdrawn resolved Will d/c tele monitor r Elevated Lactate Mostly related to alcohol intoxication Continue IVF Resolved Code status Full code Disposition Continue monitor closely Will need placement to alcohol rehab Possible discharge to rehab tomorrow Subjective Pt was seen and examined Lying in bed with no distress Pt is not having any hallucination and psychosis She told her dad that she does not want to go to inpatient alcohol rehab She said that she feels depressed and requested to see psych before discharge denies any chest pain, palpitation, suicidal thought and SOB Physical Exam Physical Exam: General- No acute distress Head- atraumatic Eyes- PERRL, EOMI, ENT- oropharynx clear Neck- supple, no JVD Lungs- clear to auscultation Heart- regular; no murmur Abdomen- normal bowel sounds, soft, nontender Extremities- no calf tenderness, Neuro- alert, oriented x 3; PERRL, EOMI; no facial palsy; no dysarthria, Mild nystagmus Skin- warm & dry Results & Data ([facility]) Vital Signs (Past 12 Hours) Vital Signs Temp Pulse Pulse Pulse Resp BP BP 11/24/19 16:56 112 H 11/24/19 16:00 36.9 C 91 H 18 114/78 11/24/19 11:45 36.8 C 91 H 18 109/72 11/24/19 07:57 37.0 C 97 H 18 113/76 11/24/19 07:30 37 C 11/24/19 07:15 87 Pulse Ox 11/24/19 16:56 11/24/19 16:00 97 11/24/19 11:45 98 11/24/19 07:57 96 11/24/19 07:30 11/24/19 07:15
[2019-11-24] MEDS: chlordiazePOXIDE HCl 5 MG CAP PO SCH (20:37)
[2019-11-25] MEDS: chlordiazePOXIDE HCl 5 MG CAP PO SCH (08:27)
[2019-11-25] MEDS: NICOTINE 14 MG/24 HR PATCH TD SCH (08:28)
[2019-11-25] MEDS: FLUOXETINE HCL 20 MG CAP PO SCH (08:28)
[2019-11-25] MEDS: cephALEXin 500 MG CAP PO SCH (08:28)
[2019-11-25] MEDS: MAGNESIUM CHLORIDE 64MG DELAYED REL TAB PO SCH (08:28)
[2019-11-25] MEDS: NALTREXONE HCL 50 MG TAB PO SCH (08:28)
[2019-11-25] MEDS: FOLIC ACID 1 MG TAB PO SCH (08:28)
[2019-11-25] MEDS: ARIPiprazole 5 MG TAB PO SCH (08:28)
[2019-11-25] MEDS: THIAMINE HCL 100 MG TAB PO SCH (08:28)
[2019-11-25] MEDS: CEROVITE ADV FORMULA TAB PO SCH (08:29)
--- NOTE | 2019-11-25 13:59 | Hospitalist Progress Note ---
Date of Service November 25, 2019 Assessment & Plan (1) Alcohol abuse: Alcohol Intoxication Alcohol Withdrawal Alcohol level on admission 295 Hx of seizure related to alcohol withdrawn Continue Gabapentin/Ativan/Libruim alcohol withdrawn protocol Will monitor closely for signs of withdrawn Pt said that she might consider to go to alcohol rehab On alcohol withdrawal with Ativan/Librium/gabapentin Completed gabapentin course today Librium decreased to 5mg BID, then discontinued Already pass the window for DT Continue Folic acid and Thiamine 1 to 1 observation discontinued Will need alcohol rehab since this is her 5th times treated for alcohol withdraw as per dad Clinically stable to discharge to rehab She has been accepted to go to [facility] for rehab Counseling on alcohol cessation Cough CTA chest showed no evidence of pulmonary thromboembolic disease. Small right p leural effusion with markedly improved aeration of the right lung from comparison study dated 10/03/2019. Linear subpleural consolidative opacities throughout the right midlung are suggestive of pleural-parenchymal scarring. No definite evidence of pneumonia. Thoracic surgery on board and no further testing required Continue Tessalon perles prn UTI Urine cx positive for gram negative bacilli (Klebsiella Pneumonia) On Rocephin IV Completed course of oral keflex Tachycardia Moslty related to alcohol withdrawn resolved tele monitor Discontinued Tobacco abuse Counseling on tobacco cessation On Nicotine patch Elevated Lactate Mostly related to alcohol intoxication Continue IVF Resolved Depression Anxiety Requested psych consult Denies any suicidal thought On Fluoxetine 60mg daily and Aripiprazole Psych on board and appreciate input Vistaril 25mg q6h prn can be used for anxiety or panic attack if needed as per psych Code status Full code Disposition Continue monitor closely Will discharge to [facility] for alcohol rehab today Subjective Pt was seen and examined Lying in bed with no distress Pt said that she feels much better She was sitting doing crosswords puzzle Her mind is better now Denies any hallucination, palpitation, psychosis and suicidal thought Physical Exam Physical Exam: General- No acute distress Head- atraumatic Eyes- PERRL, EOMI, ENT- oropharynx clear Neck- supple, no JVD Lungs- clear to auscultation Heart- regular; no murmur Abdomen- normal bowel sounds, soft, nontender Extremities- no calf tenderness, Neuro- alert, oriented x 3; PERRL, EOMI; no facial palsy; no dysarthria, Mild nystagmus Skin- warm & dry Results & Data ([facility] [place]) Vital Signs (Past 12 Hours) Vital Signs Temp Pulse Pulse Resp BP Pulse Ox 11/25/19 08:00 99 H 11/25/19 07:00 36.8 C 83 16 109/75 99
--- NOTE | 2019-11-25 14:48 | Psychiatric Consultation ---
Date of Consultation November 25, 2019 Impression / Recommendations Impression 29 yo female admit for etoh detox with etoh dependence, hx of DTs/withdrawal seizure (symptoms in excess of her reported recent use). She has a history of non-specific anxiety and depression and is currently on combo of SSRI and mood stabilizer. Reviewed that she should only take medications as prescribed due to risk of akathisia and drug-drug interactions and best way to refine her diagnosis and psychiatric med regimen is abstaining from ETOH for a meaningful period of time, not taking benzos. She is amenable to rehab and is awaiting a bed later today at [facility]. Reviewed that psych meds can be addressed there as well as step down programming. Reviewed that prn Vistaril may provide some relief for panic but is at the discretion of the treating facility. Typical doses 25 mg Vistaril q6 hr p rn. Reviewed that possible her Prozac dose should be decreased and Abilify increased while in placement or soon after. Risk Factors Assessment Do You Have Access To A Gun?: No Psych History Identifying Data 29 yo female from [place], consult is by Dr. Mcfarland for depression. Chief Complaint "I wanted to see if my meds were right". History of Present Illness patient admit 11/19 for ETOH detox, in the context of withdrawal has experienced tracey for seeing dogs and heard people talk to her. States she has been on Prozac on/off "most of my life" since age 21. 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 She admitted to taking sporadically and/or occasionally taking extra Abilify to calm down but it makes her restless instead, seemingly describing jitteriness and/or akathisia. It's unclear if she has actually been diagnosed with bipolar disorder as "everything" is complicated by her drinking. She has been on it for 6 months via [employer]. Naltrexone has been helpful in decreasing cravings, "not so much for ETOH" but for food and cigarettes. Father was at bedside and is supportive of her going to rehab, plans to drive her. She then switched to discussing panic symptoms, reviewed that can be related to ETOH withdrawal. She then asked "what are the chances of me getting Xanax?" and we reviewed that benzodiazepines are for detox only and not appropriate given her substance use disorder. Father then reminder her she had been told this before. Past Psychiatric History Previous Psych History: eating do as a teen Outpatient Services: therapist at [facility] Previous Psych Admissions: none Do You Have Access To A Gun?: No History of Previous Suicide Attempt: No Past Medication Trials: Xanax, hydroxyzine, topamax, doxepin Allergies Allergy/AdvReac Type Severity Reaction Status Date / Time No Known Allergies Allergy Unverified 11/22/19 04:28 Home Medications Home Medications Medication Instructions Recorded Confirmed Type fluoxetine [Prozac] 60 mg PO DAILY 11/03/18 11/19/19 History aripiprazole [Abilify] 5 mg PO DAILY 09/25/19 11/19/19 History folic acid 1 mg PO QAM 30 Days #30 tab 10/08/19 11/19/19 Rx benzonatate [Tessalon Perles] 100 mg PO TID PRN 11/19/19 11/19/19 History etonogestrel-ethinyl estradiol 1 vag ring VAGINAL DIRECTED 11/19/19 11/19/19 History [NuvaRing] magnesium chloride [Mag 64] 64 mg PO BID 11/19/19 11/19/19 History naltrexone 50 mg PO DAILY 11/19/19 11/19/19 History thiamine HCl (vitamin B1) [Vitamin 100 mg PO QAM 30 Days #30 tab 11/25/19 Rx B-1] Family History denied Substance Abuse History states typically 2 or 3 of 24 oz beers, no MJ, rehab X2 02/08 Personal History Highest Grade Completed: College (BS [place]) Employment Status: [employer] Work[employer] Employed Beliefs That Will Affect Care: None History of Legal Problems: no Patient History Medical History Admitted to intensive care unit Alcohol withdrawal Alcohol withdrawal seizure (Inactive) Alcoholism Depression Elevated LFTs Hypophosphatemia Pulmonary abscess Sepsis (Inactive) Severe sepsis Thrombocytopenia (Inactive) Tobacco use Surgical History No pertinent past surgical history Family History Mother Diabetes Social History Preferred Language: [place] Communication Ability: Effective Visual Impairment: Partially Limited Caption Writer Required: No Beliefs That Will Affect Care: None marital status: Single marital status details: Boyfriend Current Living Situation: Parent Current Living Situation Comment: father Feels Safe at Home: Yes Safety Concerns: Feels Safe At This Time Smoking Status: Never smoker Tobacco Type: cigarettes ; Cigarettes Per Day: 10 ; Second Hand Exposure: Yes ; Hx Alcohol Use: Yes Alcohol type: other Alcohol Intake Frequency Comment: 6-7 daily Hx Substance Use: No Physical Exam Mental Examination: The patient presented as alert and cooperative. The patient was casually dressed and groomed. Eye contact was fair. No psychomotor restlessness or agitation was noted. Speech was normal in rate, rhythm, and volume. Affect was mood congruent. The patients mood appeared euthymic. Thought processes were clear, coherent and goal directed without evidence of loose associations or flight of ideas. Thought content/perception was reality based without delusions. The patient denied suicidal and homicidal ideation. The patient denied hallucinations and did not appear to be responding to internal stimuli. Cognition was grossly intact with orientation to person, place and time. Fund of Knowledge/Intelligence were consistent with level of education. Vital Signs (Past 24 Hours): Last Vital Signs Temp 36.8 C 11/25/19 07:00 Pulse 99 H 11/25/19 08:00 Resp 16 11/25/19 07:00 BP 109/75 11/25/19 07:00 Pulse Ox 99 11/25/19 07:00 Review of Systems All systems reviewed & are unremarkable except as noted in HPI & below Results & Data (PSY) Medications Administered Acetaminophen (Tylenol) 650 mg PO Q4H PRN PRN Reason: Pain or Fever Stop: 12/20/19 02:57 Last Admin: 11/20/19 15:52 Dose: 650 mg Documented by: [id number] Aripiprazole (Abilify) 5 mg PO DAILY RUSS Stop: 12/23/19 05:29 Last Admin: 11/25/19 08:28 Dose: 5 mg Documented by: [id number] Admin: 11/24/19 08:14 Dose: 5 mg Documented by: [id number] Admin: 11/23/19 06:36 Dose: 5 mg Documented by: [id number] Benzonatate (Tessalon Perle) 100 mg PO TID PRN PRN Reason: Cough Stop: 12/20/19 02:57 Last Admin: 11/20/19 11:17 Dose: 100 mg Documented by: [id number] Cephalexin HCl (Keflex) 500 mg PO BID RUSS Stop: 11/26/19 08:59 Last Admin: 11/25/19 08:28 Dose: 500 mg Documented by: [id number] Admin: 11/24/19 20:37 Dose: 500 mg Documented by: [id number] Admin: 11/24/19 08:15 Dose: 500 mg Documented by: [id number] Fluoxetine HCl (Prozac) 60 mg PO DAILY RUSS Stop: 12/20/19 08:59 Last Admin: 11/25/19 08:28 Dose: 60 mg Documented by: [id number] Admin: 11/24/19 08:14 Dose: 60 mg Documented by: [id number] Admin: 11/23/19 07:35 Dose: 60 mg Documented by: [id number] Admin: 11/22/19 08:20 Dose: 60 mg Documented by: [id number] Admin: 11/21/19 07:56 Dose: 60 mg Documented by: [id number] Admin: 11/20/19 08:17 Dose: 60 mg Documented by: [id number] Folic Acid (Folvite) 1 mg PO QAM RUSS Stop: 12/20/19 08:59 Last Admin: 11/25/19 08:28 Dose: 1 mg Documented by: [id number] Admin: 11/24/19 08:14 Dose: 1 mg Documented by: [id number] Admin: 11/23/19 07:35 Dose: 1 mg Documented by: [id number] Admin: 11/22/19 08:19 Dose: 1 mg Documented by: [id number] Admin: 11/21/19 07:56 Dose: 1 mg Documented by: [id number] Admin: 11/20/19 08:16 Dose: 1 mg Documented by: [id number] Guaifenesin (Robitussin Sugar Free) 200 mg PO Q6H PRN PRN Reason: Cough Stop: 12/20/19 23:48 Last Admin: 11/24/19 15:57 Dose: 200 mg Documented by: [id number] Admin: 11/23/19 17:24 Dose: 200 mg Documented by: [id number] Admin: 11/22/19 08:21 Dose: 200 mg Documented by: [id number] Admin: 11/21/19 00:29 Dose: 200 mg Documented by: [id number] Magnesium Chloride (Slow-Mag) 64 mg PO BID RUSS Stop: 12/20/19 08:59 Last Admin: 11/25/19 08:28 Dose: 64 mg Documented by: [id number] Admin: 11/24/19 20:38 Dose: 64 mg Documented by: [id number] Admin: 11/24/19 08:14 Dose: 64 mg Documented by: [id number] Admin: 11/23/19 20:13 Dose: 64 mg Documented by: [id number] Admin: 11/23/19 07:36 Dose: 64 mg Documented by: [id number] Admin: 11/22/19 20:33 Dose: 64 mg Documented by: [id number] Admin: 11/22/19 08:21 Dose: 64 mg Documented by: [id number] Admin: 11/21/19 20:27 Dose: 64 mg Documented by: [id number] Admin: 11/21/19 07:55 Dose: 64 mg Documented by: [id number] Admin: 11/20/19 20:28 Dose: 64 mg Documented by: [id number] Admin: 11/20/19 08:17 Dose: 64 mg Documented by: [id number] Miscellaneous (Remove Nicoderm Patch) 1 ea N/A DAILY@[id number] [facility] Stop: 12/23/19 08:58 Last Admin: 11/25/19 08:28 Dose: 1 ea Documented by: [id number] Admin: 11/24/19 04:41 Dose: 1 ea Documented by: [id number] Admin: 11/23/19 07:34 Dose: 1 ea Documented by: [id number] Multivitamins/Minerals (Multivitamin W/ Minerals Tab) 1 tab PO QAM [facility] Stop: 12/20/19 08:59 Last Admin: 11/25/19 08:29 Dose: 1 tab Documented by: [id number] Admin: 11/24/19 08:14 Dose: 1 tab Documented by: [id number] Admin: 11/23/19 07:36 Dose: 1 tab Documented by: [id number] Admin: 11/22/19 08:19 Dose: 1 tab Documented by: [id number] Admin: 11/21/19 07:55 Dose: 1 tab Documented by: [id number] Admin: 11/20/19 08:16 Dose: 1 tab Documented by: [id number] Naltrexone HCl (Naltrexone Hcl) 50 mg PO DAILY [facility] Stop: 12/20/19 08:59 Last Admin: 11/25/19 08:28 Dose: 50 mg Documented by: [id number] Admin: 11/24/19 08:14 Dose: 50 mg Documented by: [id number] Admin: 11/23/19 07:35 Dose: 50 mg Documented by: [id number] Admin: 11/22/19 08:20 Dose: 50 mg Documented by: [id number] Admin: 11/21/19 07:56 Dose: 50 mg Documented by: [id number] Admin: 11/20/19 08:16 Dose: 50 mg Documented by: [id number] Nic[facility] ([facility]oderm Cq) [facility] Stop: 12/22/19 05:29 Last Admin: 11/25/19 08:28 Dose: 14 mg Documented by: [id number] Admin: 11/24/19 08:15 Dose: 14 mg Documented by: [id number] Admin: 11/23/19 07:39 Dose: 14 mg Documented by: [id number] Admin: 11/22/19 05:33 Dose: 14 mg Documented by: [id number] Ondansetron HCl (Zofran) 4 mg IV Q6H PRN PRN Reason: Nausea Stop: 12/20/19 02:57 Last Admin: 11/23/19 19:22 Dose: 4 mg Documented by: [id number] Admin: 11/20/19 18:46 Dose: 4 mg Documented by: [id number] Admin: 11/20/19 11:17 Dose: 4 mg Documented by: [id number] Thiamine HCl (Vitamin B-1) 100 mg PO [facility] Stop: 12/20/19 08:59 Last Admin: 11/25/19 08:28 Dose: 100 mg Documented by: [id number] Admin: 11/24/19 08:14 Dose: 100 mg Documented by: [id number] Admin: 11/23/19 07:35 Dose: 100 mg Documented by: [id number] Admin: 11/22/19 08:20 Dose: 100 mg Documented by: [id number] Admin: 11/21/19 07:55 Dose: 100 mg Documented by: [id number] Admin: 11/20/19 08:17 Dose: 100 mg Documented by: [id number] Coding Level of Care Code 79057 U Intl Hosp Care Lvl 2
--- NOTE | 2019-11-29 00:05 | Discharge Summary ---
Date of Service November 25, 2019 Admission HPI Per Admitting Provider CHIEF COMPLAINT: Cough and alcoholism. HISTORY OF PRESENT ILLNESS: This is a 29-year-old female with past medical history significant for alcoholism, anxiety, mood disorder, ongoing tobacco abuse. The patient had multiple admissions for alcoholism and she also has seizure thought to be from alcohol withdrawal. The patient was recently admitted in the hospital on 09/26/2019 and discharged 10/08/2019. At that time, she was found to have right upper lobe pneumonia and lung abscess, possible aspiration, status post VATS procedure, severe sepsis and was in the ICU. discharged on Augmentin for 3 weeks. The patient also followed with CT Surgery, seems to be doing fine, but she is still drinking. She says she drinks 3 big cans of beer every day. Since last 1 week, she is having cough, not bringing any phlegm, but having chest pain. When she is coughing, she has pain in chest and pain is more when taking deep breath. Also she has had some nausea, vomiting and diarrhea. No blood in stools or black stools. No hematuria or burning micturition. Currently resting comfortably and hemodynamically stable, somewhat tachycardic. Alcohol level in 290s. Denies any headache, no dizziness, no blurred vision, no earache, no runny nose. Has some sore throat. Appetite is poor. The patient wants to get detoxed in the hospital, but does not want to go to rehab. Admission Exam Per Admitting Provider GENERAL: The patient is of moderate build, not in acute distress. VITAL SIGNS: Temperature 36.9, pulse 113, respiratory rate 20, blood pressure 119/74, oxygen 96% room air. HEENT: Pupils equal, round, reactive to light. NECK: Supple. No neck masses. CARDIOVASCULAR: S1, S2 heard. Tachycardia. No murmurs. RESPIRATORY SYSTEM: Normal AP diameter. No accessory muscle use. No wheezing, no crackles. ABDOMEN: Soft, bowel sounds present, nontender. No distention. CENTRAL NERVOUS SYSTEM: Alert and oriented. Nonfocal. EXTREMITIES: No edema, no erythema. Principal Diagnosis Alcohol abuse: Alcohol Intoxication Alcohol Withdrawal Cough UTI (Urinary tract Infection) Tachycardia Elevated Lactate Discharge Exam General- No acute distress Head- atraumatic Eyes- PERRL, EOMI, ENT- oropharynx clear Neck- supple, no JVD Lungs- clear to auscultation Heart- regular; no murmur Abdomen- normal bowel sounds, soft, nontender Extremities- no calf tenderness, Neuro- alert, oriented x 3; PERRL, EOMI; no facial palsy; no dysarthria, Mild nystagmus Skin- warm & dry Discharge Data Allergies Allergy/AdvReac Type Severity Reaction Status Date / Time No Known Allergies Allergy Unverified 11/22/19 04:28 Consultations 11/20/19 01:01 ED Decision to Admit Stat 11/20/19 02:58 Consult Case Management - Discharge Planning Routine 11/20/19 08:00 Consult Thoracic Surgery Routine 11/25/19 07:53 Consult Psychiatry Routine Ordered Studies 11/19/19 22:48 CT angio chest PE protocol Urgent XR chest 1V portable CLINICAL HISTORY: weakness COMPARISON STUDY: 10/08/2019 FINDINGS: The cardiac and mediastinal contours remain stable. There has been marked interval improvement in the previously identified right lung airspace opacities. There is a small right pleural effusion versus pleural scarring. The left lung is clear.[There is no failure. IMPRESSION: 1. Marked interval improvement in the previously identified right lung airspace opacities 2. Small right pleural effusion versus pleural scarring. ACT 112: Negative or not required by law. Electronically signed by: Mathieu Castillo M.D. 11/19/2019 9:55 PM Dictated: 11/19/192152 Transcribed: 11/19/192152 CT angio chest PE protocol CT DOSE: 227.19 mGy.cm HISTORY: 29 years-old Female with PE. Acute chest pain with clinical concern for pulmonary embolus TECHNIQUE: Multiple CTA images of the chest were obtained after the intravenous administration of 119 ml Optiray 320. Coronal and sagittal MIPS were obtained from the axial data set and were submitted for review. All measurements were obtained according to NASCET criteria. A dose lowering technique was utilized adhering to the principles of ALARA. COMPARISON: Chest CT 10/03/2019 FINDINGS: CTA: Heart is normal in size without pericardial effusion. Thoracic aorta is normal in course and caliber without aneurysm or dissection. There is patency of the imaged great vessels. The pulmonary arterial tree is opacified to level of the subsegmental branches and demonstrates no filling defects to suggest pulmonary thromboembolic disease. CT CHEST: Unremarkable thyroid. No adenopathy by CT size criteria. Small right pleural effusion. There is no pneumothorax. The left lung is generally clear with only minimal dependent subsegmental left basilar atelectasis. Linear pleural parenchymal scarring of the right upper lobe with linear consolidative opacities measuring up to approximately 2.4 cm. There is a 6 mm cystic focus noted on image 142 series 4 within an area of adjacent scarring. There is marked improved aeration of the right upper lobe from comparison CT dated 10/03/2019 with resolution of the previously described pulmonary abscess/empyema. No airspace consolidation of the right lung typical for pneumonia. Central airways appear patent. Nonspecific distal esophageal wall thickening with possible tiny hiatal hernia. Hepatic steatosis. The breast parenchyma and soft tissues appear unremarkable. The bones appear intact. IMPRESSION: 1. No evidence of pulmonary thromboembolic disease. 2. Small right pleural effusion with markedly improved aeration of the right lung from comparison study dated 10/03/2019. Linear subpleural consolidative opacities throughout the right midlung are suggestive of pleural-parenchymal scarring. No definite evidence of pneumonia. 3. Mild wall thickening of the distal esophagus with probable tiny hiatal hernia. 4. Hepatic steatosis. ACT 112: Negative or not required by law. The above report was generated using voice recognition software. It may contain grammatical, syntax or spelling errors. Electronically signed by: Yoshi Rawls M.D. 11/20/2019 6:54 AM Dictated: 11/20/19 06 Transcribed: 11/20/19 0647 Hospital Course (1) Alcohol abuse: Alcohol Intoxication Alcohol Withdrawal Alcohol level on admission 295 Hx of seizure related to alcohol withdrawn Continue Gabapentin/Ativan/Libruim alcohol withdrawn protocol Will monitor closely for signs of withdrawn Pt said that she might consider to go to alcohol rehab On alcohol withdrawal with Ativan/Librium/gabapentin Completed gabapentin course today Librium decreased to 5mg BID, then discontinued Already pass the window for DT Continue Folic acid and Thiamine 1 to 1 observation discontinued Will need alcohol rehab since this is her 5th times treated for alcohol withdraw as per dad Clinically stable to discharge to rehab She has been accepted to go to [facility] for rehab Counseling on alcohol cessation Cough CTA chest showed no evidence of pulmonary thromboembolic disease. Small right pleural effusion with markedly improved aeration of the right lung from comparison study dated 10/03/2019. Linear subpleural consolidative opacities throughout the right midlung are suggestive of pleural-parenchymal scarring. No definite evidence of pneumonia. Thoracic surgery on board and no further testing required Continue Tessalon perles prn UTI Urine cx positive for gram negative bacilli (Klebsiella Pneumonia) On Rocephin IV Completed course of oral keflex Tachycardia [place]ty related to alcohol withdrawn resolved tele monitor Discontinued Tobacco abuse Counseling on tobacco cessation On Nicotine patch Elevated Lactate Mostly related to alcohol intoxication Continue IVF Resolved Depression Anxiety Requested psych consult Denies any suicidal thought On Fluoxetine 60mg daily and Aripiprazole Psych on board and appreciate input Vistaril 25mg q6h prn can be used for anxiety or panic attack if needed as per psych Code status Full code Disposition Continue monitor closely Will discharge to [facility] for alcohol rehab today Total Time Total Time Spent Total Time Spent (In Minutes): 35 minutes Total Time Includes: Examination of the Patient, Discharge Planning, Medication Reconciliation, Communication With Other Providers and Other Discharge Plan Discharge Items Patient Disposition: Drug & Alcohol Rehab Reason For Visit: COUGH, N/V, DETOX Discharge Diagnosis: Alcohol abuse: Alcohol Intoxication Alcohol Withdrawal Cough UTI (Urinary tract Infection) Tachycardia Elevated Lactate Activity: Resume your previous activity Non-emergency contact: Primary Care Provider Call non-emergency contact if: you have any medication questions Follow-up/Referrals: Stephenie Sandoval MD [Primary Care Provider] - Diet: Regular Addtl Attending Provider Instructions: Discharge to drug and alcohol rehab Follow up with your primary care provider once discharge from rehab Counseling on alcohol cessation Counseling on smoking cessation Pending Studies at Discharge: No Stand-Alone Forms: My [employer], Smoking Cessation Skilled Items Patient informed of condition?: Yes DNR: No Discharge Level of Care: Acute rehab Communicable Disease: No Discharge Prognosis: Stable Lines: None Urinary Catheter: No Medications and DC Order Prescriptions: New thiamine HCl (vitamin B1) [Vitamin B-1] 100 mg Tablet 100 mg PO QAM 30 Days Qty: 30 RF: 0 Continued fluoxetine [Prozac] 20 mg capsule 60 mg PO DAILY RF: 0 aripiprazole [Abilify] 5 mg Tablet 5 mg PO DAILY RF: 0 folic acid 1 mg Tablet 1 mg PO QAM 30 Days Qty: 30 RF: 3 naltrexone 50 mg tablet 50 mg PO DAILY RF: 0 etonogestrel-ethinyl estradiol [NuvaRing] 0.12-0.015 mg/24 hr ring 1 vag ring VAGINAL DIRECTED RF: 0 magnesium chloride [Mag 64] 64 mg tablet,delayed release (DR/EC) 64 mg PO BID RF: 0 benzonatate [Tessalon Perles] 100 mg capsule 100 mg PO TID PRN (Reason: Cough) RF: 0 Discharge Orders: Discharge Order (Routine); Ordered 11/25/19 Ordered By: Kaleigh Mcfarland Admission Data Admit Date/Time: 11/20/19 02:06 Attending Provider: Kaleigh Mcfarland Admit Provider: Alex Gaines Primary Care Provider: Stephenie Sandoval Other Providers: Erik Jose ; Amalia Reynoso Other Interventions: Discharge Summary Assessment (RN) Last Done: 11/25/19 15:16 DC Date/Time DO NOT enter until pt leaves facility: 11/25/19 15:55
== END 2019-11-25 15:55 | disposition alcohol treatment (31) | DRG 897 ==
LOC: ED 19:00 → 2S 11-20 02:06 → 2W 11-21 15:13

== ENCOUNTER 2020-01-19 08:44 | Inpatient (IN) ==
[2020-01-19] MEDS ORDERED: MULTI-VITAMIN INFUSION 10 ML, THIAMINE HCL 100 MG, FOLIC ACID 1 MG in SODIUM CHLORIDE 0... IV ONE (08:59)
[2020-01-19] MEDS ORDERED: LORazepam 1 MG/2 ML VIAL IV STA ×2 (08:59→12:12)
[2020-01-19 09:26] LABS: Basophils # (auto) 0.05 K/uL (0-0.2); Basophils % (auto) 1.7 %; Eosinophils # (auto) 0.01 K/uL (0-0.5); Eosinophils % (auto) 0.3 %; Hematocrit (blood only) 37.4 % (37-47); Hemoglobin 12.6 g/dL (12.0-16.0); Lymphocytes # (auto) 0.86 K/uL (1.2-3.4); Lymphocytes % (auto) 29.6 %; Mean Corpuscular Hemoglobin 34.4 pg (25-34); Mean Corpuscular Hgb Conc 33.7 g/dL (32-36); Mean Corpuscular Volume 102.2 fL (80-100); Mean Platelet Volume 9.4 fL (7.4-10.4); Monocytes % (auto) 10.3 %; Neutrophils # (auto) 1.69 K/uL (1.4-6.5); Neutrophils % (auto) 58.1 %; Platelet Count 215 K/uL (130-400); RDW Coefficient of Variation 14.7 % (11.5-14.5); RDW Standard Deviation 50.9 fL (36.4-46.3); Red Blood Count 3.66 M/uL (4.2-5.4); White Blood Count 2.91 K/uL (4.8-10.8)
--- NOTE | 2020-01-19 09:31 | Emergency Department Note ---
History of Present Illness General Chief Complaint: Seizure Stated Complaint: seizure about 40 min ago Source: patient and family Mode of arrival: ambulatory Limitations: no limitations History of Present Illness Provider Complaint: + seizure Onset (ago): 45 minute(s) Description of Episode: + loss of consciousness, + tonic-clonic movement and + post-event confusion -: + minutes(s) Witnessed: + yes - by bystander Trauma: No Seizure History: + history of withdrawal seizures Place: + home Possible Precipitating Event: + alcohol withdrawal Associated symptoms: + denies other symptoms Treatments prior to arrival: + none HPI Narrative: This 29-year-old female patient presents emergency department today, ambulatory, company by her father. The patient is a chronic alcoholic and has experienced alcohol withdrawal seizures in the past. The patient was recently discharged from [facility] rehab approximately 3 to 4 weeks ago. She began drinking again 2 to 3 days after discharge, and did not have any outpatient rehab set up at that time. The patient drinks 3-4 tall cans of Cosmo's hard 15% alcohol content drinks per day. She states her last drink was yesterday. She did not drink first thing this morning. Patient's father states the patient was downstairs this morning when she suddenly went unconscious and fell, then experienced tonic-clonic movements. The patient's father states this is consistent with seizures she has experienced in the past. He states it l asted "a couple minutes", and she was breathing very heavy. She came out of it a few minutes later, and he noticed blood coming from her mouth from biting her tongue. The patient was not responding throughout the episode and states she does not recall the seizure or activity. There is no incontinence. Patient did seem to be postictal after the seizure, the patient's mother states she was talking gibberish and was not making sense. Patient denies any recent fever upper respiratory infection symptoms. She denies any history of seizure disorders. She has been taking a multivitamin and Tessalon Perles daily. She does indicate that a Tessalon Perles broke in her mouth approximately 4 days ago, making her mouth numb. Patient denies any current pain or complaints at this time. She continues to feel somewhat "out of it". Home Medications Home Medications Medication Instructions Recorded Confirmed Type fluoxetine [Prozac] 60 mg PO QAM 11/03/18 01/19/20 History aripiprazole [Abilify] 5 mg PO QAM 09/25/19 01/19/20 History folic acid 1 mg PO QAM 30 Days #30 tab 10/08/19 01/19/20 Rx benzonatate [Tessalon Perles] 100 mg PO TID PRN 11/19/19 01/19/20 History etonogestrel-ethinyl estradiol 1 vag ring VAGINAL DIRECTED 11/19/19 01/19/20 History [NuvaRing] magnesium chloride [Mag 64] 64 mg PO BID 11/19/19 01/19/20 History naltrexone 50 mg PO QAM 11/19/19 01/19/20 History Allergies Allergy/AdvReac Type Severity Reaction Status Date / Time No Known Allergies Allergy Unverified 01/19/20 10:41 Past Med/Surg History Medical History Admitted to intensive care unit Alcohol withdrawal Alcohol withdrawal seizure (Inactive) Alcoholism Depression Elevated LFTs Hypophosphatemia Pulmonary abscess Sepsis (Inactive) Severe sepsis Thrombocytopenia (Inactive) Tobacco use Surgical History No pertinent past surgical history Social History Preferred Language: Danish Communication Ability: Effective Visual Impairment: Partially Limited Cutter Hot Knife Required: No Beliefs That Will Affect Care: None marital status: Single marital status details: Boyfriend Current Living Situation: Parent Current Living Situation Comment: father Feels Safe at Home: Yes Safety Concerns: Feels Safe At This Time Smoking Status: Current every day smoker Tobacco Type: cigarettes ; Cigarettes Per Day: 10 ; Second Hand Exposure: Yes ; Hx Alcohol Use: Yes Alcohol type: other Alcohol Intake Frequency Comment: 6-7 daily Hx Substance Use: No Review of Systems A total of 10 systems reviewed and were otherwise negative Physical Exam Vital Signs: Vital Signs - 24 hr 01/19/20 08:51 01/19/20 09:26 Temperature 36.9 C Temperature Source Oral Pulse Rate 130 H Respiratory Rate 22 Respiratory Effort / Characteristics Non-Labored Sponta neous Respiratory Depth Normal Respiratory Patter n Regular Blood Pressure 139/92 Blood Pressure Abby n 107 Pulse Oximetry 95 96 Oxygen Delivery Me thod Room Air Room Air Sepsis Recent Feve r Within 48 Hours No Sepsis Action Take n by Nursing No Action Required Physical Exam: VITALS: Vitals are noted on the nurse's note and reviewed by myself. Patient is tachycardic, but afebrile. GENERAL: This is a 29 year old female, in no acute distress, nondiaphoretic, well-developed well-nourished. SKIN: The skin was without rashes, erythema, edema, or bruising. There is no tenting of the skin. Capillary refill less than 2 seconds. HEAD: Normocephalic atraumatic. EARS: External auditory canals clear, tympanic membranes pearly figueroa without erythema or effusion bilaterally. EYES: Pupils equal round and reactive to light and accommodation. Conjunctivae without injection, sclerae without icterus. Extraocular movements intact. No nystagmus. NOSE: Patent, turbinates without inflammation or discharge. No sinus tenderness. MOUTH: Mucous membranes moist. Tonsils are not enlarged. Pharynx without erythema or exudate. Uvula midline. Airway patent. Tongue does not deviate. NECK: Supple without nuchal rigidity. No lymphadenopathy. No thyromegaly. Cervical spine is nontender. No JVD. HEART: Regular rate and rhythm without murmurs gallops or rubs. LUNGS: Clear to auscultation bilaterally without wheezes, rales or rhonchi. No retractions or accessory muscle use. ABDOMEN: Positive bowel sounds x 4. Normal tympanic percussion. Soft, nontender, without masses or organomegaly. No guarding or rebound tenderness. MUSCULOSKELETAL: No muscle atrophy, erythema, or edema noted. Full range of motion without joint tenderness in all extremities. No tenderness to palpation. Normal gait. Strength 5/5 throughout. NEURO: Patient was alert and oriented to person place and time during initial evaluation, but she does experience intermittent episodes of hallucinations throughout her stay. Normal sensation to light and sharp touch. Deep tendon reflexes 2+ throughout. No focal neurological deficits. Course Course The patient was seen and evaluated as above. Pt. placed on continuous cardiac care unit nurse which showed a sinus tachycardia at a rate of 130. IV access obtained, labs drawn. Patient medicated with IV Ativan and banana bag. Imaging performed and reviewed by myself and radiologist as noted. Labs reviewed by myself. I discussed the case with the ED pharmacist for potassium recommendations. I discussed the findings with the patient at bedside. Patient medicated with p.o. and IV potassium and magnesium. I discussed the case with the apartment manager and recommended admission. I discussed the case with Dr. Fonseca, [facility] hospitalist physician. He did agree to see and evaluate the patient for admission. Administered Medications Potassium Chloride (K Florentin / Wtr) 10 meq in 100 mls @ 100 mls/hr IV Q1H RUSS Stop: 01/19/20 14:14 Last Admin: 01/19/20 10:21 Dose: 100 mls/hr Documented by: [id number] Magnesium Sulfate/Dextrose (Magnesium Sulfate / D5w) 1 gm in 100 mls @ 100 mls/hr IV Q1H RUSS Stop: 01/19/20 12:14 Last Admin: 01/19/20 10:21 Dose: 100 mls/hr Documented by: [id number] Discontinued Medications Lorazepam (Ativan) 1 mg in 2 mls @ 2 mls/min IV NOW STA Stop: 01/19/20 09:00 Last Admin: 01/19/20 09:24 Dose: 2 mls/min Documented by: [id number] Multivitamins 10 ml/ Thiamine HCl 100 mg/ Folic Acid 1 mg/Sodium Chloride 1,011 .2 mls @ 500 mls/hr IV .Q2H2M ONE Stop: 01/19/20 11:00 Last Admin: 01/19/20 09:51 Dose: 500 mls/hr Documented by: [id number] Potassium Chloride (Klor-Con M20) 40 meq PO NOW STA Stop: 01/19/20 10:07 Last Admin: 01/19/20 10:22 Dose: 40 meq Documented by: [id number] Medical Decision Making Differential Diagnosis + intractable seizure disorder, + febrile convulsion, + focal seizure, + generalized seizure, + new onset seizure, + epileptic seizure, + status e pilepticus, + epilepsy, + sleep deprivation, + syncopal seizure, + tumor, + infe ction, + hypoglycemia, + electrolyte abnormalities, + cardiac sources, + intracerebral event, + trauma, + toxicologic and + neurologic Medical Records Attestation: I reviewed the patient's medical records. Home Medications Current Medication List: was personally reviewed by me Laboratory Data Attestation: I reviewed the patient's lab results. No leukocytosis, anemia, thrombocytopenia. Renal, hepatic function without significant abnormality. The patient was hypokalemic with a potassium of 2.5. Magnesium 1.7. Alcohol level 0. hCG negative. Result diagrams: 01/19/20 09:11 01/19/20 09:11 Lab Results 01/19/20 01/19/20 01/19/20 Range/Units 09:11 09:11 09:11 WBC 2.91 L (4.8-10.8) K/uL RBC 3.66 L (4.2-5.4) M/uL Hgb 12.6 (12.0-16.0) g/dL Hct 37.4 (37-47) % MCV 102.2 H (80-100) fL MCH 34.4 H (25-34) pg MCHC 33.7 (32-36) g/dL RDW Std Deviation 50.9 H (36.4-46.3) fL RDW Coeff of Vinod 14.7 H (11.5-14.5) % Plt Count 215 (130-400) K/uL MPV 9.4 (7.4-10.4) fL Immature Gran % (Auto) 0.0 % Neut % (Auto) 58.1 % Lymph % (Auto) 29.6 % Calloway % (Auto) 10.3 % Eos % (Auto) 0.3 % Baso % (Auto) 1.7 % Immature Gran # (Auto) 0.00 (0.00-0.02) K/uL Neut # (Auto) 1.69 (1.4-6.5) K/uL Lymph # (Auto) 0.86 L (1.2-3.4) K/uL Calloway # (Auto) 0.30 (0.11-0.59) K/uL Eos # (Auto) 0.01 (0-0.5) K/uL Baso # (Auto) 0.05 (0-0.2) K/uL Sodium 139 (136-145) mmol/L Potassium 2.5 L* (3.5-5.1) mmol/L Chloride 105 (98-107) mmol/L Carbon Dioxide 24 (21-32) mmol/L Anion Gap 9.0 (3-11) BUN 3 L (7-18) mg/dl Creatinine 1.13 (0.6-1.2) mg/dl Est Cr Clr Drug Dosing 64.8 ml/min Est GFR ( Amer) 77.1 Est GFR (Non-Af Amer) 66.6 BUN/Creatinine Ratio 2.3 L (10-20) Glucose 80 (70-99) mg/dl Calcium 8.6 (8.5-10.1) mg/dl Magnesium 1.7 L (1.8-2.4) mg/dl Total Bilirubin 0.5 (0.2-1) mg/dl AST 48 H (15-37) U/L ALT 26 (12-78) U/L Alkaline Phosphatase 76 (45-117) U/L Total Protein 7.1 (6.4-8.2) gm/dl Albumin 3.5 (3.4-5.0) gm/dl Globulin 3.6 (2.5-4.0) gm/dl Albumin/Globulin Ratio 1.0 (0.9-2) HCG, Qual (Negative) Ethyl Alcohol mg/dL < 3.0 (0-3) mg/dl 01/19/20 Range/Units 09:11 WBC (4.8-10.8) K/uL RBC (4.2-5.4) M/uL Hgb (12.0-16.0) g/dL Hct (37-47) % MCV (80-100) fL MCH (25-34) pg MCHC (32-36) g/dL RDW Std Deviation (36.4-46.3) fL RDW Coeff of Vinod (11.5-14.5) % Plt Count (130-400) K/uL MPV (7.4-10.4) fL Immature Gran % (Auto) % Neut % (Auto) % Lymph % (Auto) % Calloway % (Auto) % Eos % (Auto) % Baso % (Auto) % Immature Gran # (Auto) (0.00-0.02) K/uL Neut # (Auto) (1.4-6.5) K/uL Lymph # (Auto) (1.2-3.4) K/uL Calloway # (Auto) (0.11-0.59) K/uL Eos # (Auto) (0-0.5) K/uL Baso # (Auto) (0-0.2) K/uL Sodium (136-145) mmol/L Potassium (3.5-5.1) mmol/L Chloride (98-107) mmol/L Carbon Dioxide (21-32) mmol/L Anion Gap (3-11) BUN (7-18) mg/dl Creatinine (0.6-1.2) mg/dl Est Cr Clr Drug Dosing ml/min Est GFR ( Amer) Est GFR (Non-Af Amer) BUN/Creatinine Ratio (10-20) Glucose (70-99) mg/dl Calcium (8.5-10.1) mg/dl Magnesium (1.8-2.4) mg/dl Total Bilirubin (0.2-1) mg/dl AST (15-37) U/L ALT (12-78) U/L Alkaline Phosphatase (45-117) U/L Total Protein (6.4-8.2) gm/dl Albumin (3.4-5.0) gm/dl Globulin (2.5-4.0) gm/dl Albumin/Globulin Ratio (0.9-2) HCG, Qual Negative (Negative) Ethyl Alcohol mg/dL (0-3) mg/dl Imaging Data Attestation: I personally reviewed and interpreted this imaging study as follows: Radiologist's Impression: CT head/brain wo con CT DOSE: 767.83 mGy.cm HISTORY: Trauma head injury, seizure TECHNIQUE: Multiaxial CT images of the head were performed without the use of intravenous contrast. A dose lowering technique was utilized adhering to the principles of ALARA. Comparison: None. Findings: The paranasal sinuses and mastoid air cells are clear. The calvarium and skull base are intact. The ventricles and sulci are within normal limits. There is no mass, hematoma, midline shift, or acute infarct. Impression: No acute intracranial abnormality. ACT 112: Negative or not required by law. The above report was generated using voice recognition software. It may contain grammatical, syntax or spelling errors. Electronically signed by: Sánchez Freeman M.D. 01/19/2020 9:58 AM ECG Data Attestation: I personally reviewed and interpreted this ECG as follows: Indication: tachycardia Rate (beats per minute): 93 Rhythm: normal sinus Findings: + prolonged QT (QTc 517); no peaked T-waves, no ST depression, no T- wave inversion, no ST elevation and no acute ischemic change Comparison ECG Date: from (11/19/2019) Change: no significant change Blood Pressure Blood Pressure Findings: Elevated blood pressure Blood Pressure Disposition: elevated BP felt to be situational Head Trauma GCS Score: 15 MDM Narrative This 29-year-old female patient presents emergency department today for evaluation of seizure. The patient does have a history of chronic alcohol abuse. She has experienced alcohol withdrawal seizures in the past and was witnessed by her father. This seizure was consistent with seizure she has experienced in the past. The patient did strike her head. Last drink was yesterday. The patient was discharged from inpatient rehab approximately 1 month ago and began drinking 3 to 4 days later. Current alcohol level is less than 3. The patient does not have any indication for infection. She was hypokalemic and tachycardic while here in the department. She was experiencing some hallucinations intermittently. The patient was medicated with Ativan, banana bag, magnesium, and potassium while here in the department. The patient will be admitted to the hospitalist service for further evaluation and management of her symptoms and condition. Please see hospitalist dictation regarding ongoing management care of this patient. The chart was completed utilizing [employer] voice recognition software. Grammatical errors, random word insertions, pronoun errors, and incomplete sentences are an occasional consequence of this system due to software limit ations, ambient noise, and hardware issues. Any formal questions or concerns about the content, text, or information contained within the body of this dictation should be directly addressed to the provider for clarification. Impression & Plan Alcohol withdrawal seizure with delirium, Hypokalemia, Head injury, Alcohol abuse Discharge Plan Visit Data Chief Complaint: Seizure Stated Complaint: seizure about 40 min ago ED Provider: Brian Hector ED Midlevel Provider: Bertha Wing Discharge Problem: Alcohol withdrawal seizure with delirium, Hypokalemia, Head injury, Alcohol abuse Patient Disposition: Admitted As Inpatient Forms Stand Alone Forms: [facility] [employer] Prescriptions Prescriptions: No Action fluoxetine [Prozac] 20 mg capsule 60 mg PO QAM RF: 0 aripiprazole [Abilify] 5 mg Tablet 5 mg PO QAM RF: 0 folic acid 1 mg Tablet 1 mg PO QAM 30 Days Qty: 30 RF: 3 naltrexone 50 mg tablet 50 mg PO QAM RF: 0 etonogestrel-ethinyl estradiol [NuvaRing] 0.12-0.015 mg/24 hr ring 1 vag ring VAGINAL DIRECTED RF: 0 magnesium chloride [Mag 64] 64 mg tablet,delayed release (DR/EC) 64 mg PO BID RF: 0 benzonatate [Tessalon Perles] 100 mg capsule 100 mg PO TID PRN (Reason: Cough) RF: 0 Referrals Referrals: Stephenie Sandoval MD [Primary Care Provider] -
[2020-01-19 09:48] LABS: Albumin Level 3.5 gm/dl (3.4-5.0); BUN Creatinine Ratio 2.3 (10-20); Bilirubin,Total 0.5 mg/dl (0.2-1); Calcium 8.6 mg/dl (8.5-10.1); Creatinine Clr Calc Pharmacy 64.8 ml/min; Est GFR (African American) 77.1; Est GFR (Non-African American) 66.6; Globulin 3.6 gm/dl (2.5-4.0); Potassium 2.5 mmol/L (3.5-5.1); Total Protein 7.1 gm/dl (6.4-8.2)
[2020-01-19 09:49] LABS: Magnesium 1.7 mg/dl (1.8-2.4)
[2020-01-19 09:54] LABS: Pregnancy Test, Serum Negative (Negative)
--- NOTE | 2020-01-19 09:59 | CT Scan Report ---
CT head/brain wo con CT DOSE: 767.83 mGy.cm HISTORY: Trauma head injury, seizure TECHNIQUE: Multiaxial CT images of the head were performed without the use of intravenous contrast. A dose lowering technique was utilized adhering to the principles of ALARA. Comparison: None. Findings: The paranasal sinuses and mastoid air cells are clear. The calvarium and skull base are int act. The ventricles and sulci are within normal limits. There is no mass, hematoma, midline shift, or acute infarct. Impression: No acute intracranial abnormality. ACT 112: Negative or not required by law. The above report was generated using voice recognition software. It may contain grammatical, syntax or spelling errors. Electronically signed by: Sánchez Freeman M.D. 01/19/2020 9:58 AM
[2020-01-19] MEDS ORDERED: POTASSIUM CHLORIDE 20 MEQ TABCR PO STA (10:06)
[2020-01-19] MEDS: POTASSIUM CHLORIDE / WTR 10 MEQ/100 ML PLCT IV SCH ×4 (10:21→13:40)
[2020-01-19] MEDS: MAGNESIUM SULFATE / D5W 1 GM/100 ML BAG IV SCH ×2 (10:21→11:17)
--- NOTE | 2020-01-19 12:23 | History & Physical Report ---
Date of Service January 19, 2020 Assessment & Plan (1) Seizure: Witnessed tonic clonic seizure by father Mostly related to alcohol withdrawal seizure CT head showed no acute intracranial abnormality Received Ativan IV in the ER Will get EEG Neuro Consult Continue Ativan prn for seizure Seizure precaution Alcohol abuse Alcohol Withdrawal Recently discharge at [facility] rehab protocol Alcohol level on admission less than 3 Hx of seizure related to alcohol withdrawn Will start on Gabapentin/Librium alcohol withdrawn protocol Will monitor closely for signs of withdrawn and DT Continue Folic acid and Thiamine Counseling on alcohol cessation Electrolytes imbalance K 2.5 and Mg 1.7 K and mg replaced Continue monitor Electrolytes Abnormal UA UA positive for Leukocytes and bacteria Denies any urinary symptoms Will follow urine cx Tachycardia Mostly related to alcohol withdrawn Continue monitor Tobacco abuse Counseling on tobacco cessation Will add Nicotine patch Depression Anxiety Psych consult Denies any suicidal thought Pt said that after taking her psych med, she felt drowsy Continue Fluoxetine 60mg daily and Aripiprazole Will add Vistaril for anxiety attack Code status Full code Disposition History of Present Illness Chief Complaint: Seizure Primary Care Provider: Stephenie Simmons MD 29-year-old female with past medical history significant for alcoholism, anxiety, mood disorder, tobacco abuse, seizure thought to be alcohol withdrawn, multiple admissions for alcoholism was brought to the ER by EMS after father witness seizure episode this morning. Patient was recently discharged in November to alcohol rehab treatment where she spent 4 weeks. She recently discharged from the alcohol rehab facility on first week of December. Father said 3 days later she started to drink alcohol again. Father said she has been drinking 24 ounces can Cosmo's hard 15% alcohol in it. She usually drinks about 4 cans/day. Patient said that she drink alcohol because she feels depressed. This morning she had an episode of seizure that was witnessed by father that seems to last a few minutes. Father said she fell on the floor and was having jerking movement. She said that after the episode she was breathing very heavy. She said that her lips were bleeding because she bite her lips during the seizure. Father said in the past she had alcohol withdrawal seizure. Patient said her last drink was last night. Alcohol level in the ER is less than 3. She denies any hallucination, psychosis, chest pain, palpitation, dizziness, and shortness of breath. She denies any recent traveling or any contact with sick person or any exposure to anyone positive with COVID-19. Allergies Allergy/AdvReac Type Severity Reaction Status Date / Time No Known Allergies Allergy Unverified 01/19/20 10:41 Home Medications Home Medications Medication Instructions Recorded Confirmed Type fluoxetine [Prozac] 60 mg PO QAM 11/03/18 01/19/20 History aripiprazole [Abilify] 5 mg PO QAM 09/25/19 01/19/20 History folic acid 1 mg PO QAM 30 Days #30 tab 10/08/19 01/19/20 Rx benzonatate [Tessalon Perles] 100 mg PO TID PRN 11/19/19 01/19/20 History etonogestrel-ethinyl estradiol 1 vag ring VAGINAL DIRECTED 11/19/19 01/19/20 History [NuvaRing] magnesium chloride [Mag 64] 64 mg PO BID 11/19/19 01/19/20 History naltrexone 50 mg PO QAM 11/19/19 01/19/20 History Past Med/Surg History Medical History Admitted to intensive care unit Alcohol withdrawal Alcohol withdrawal seizure (Inactive) Alcoholism Depression Elevated LFTs Hypophosphatemia Pulmonary abscess Sepsis (Inactive) Severe sepsis Thrombocytopenia (Inactive) Tobacco use Surgical History No pertinent past surgical history Social History Preferred Language: Irish Communication Ability: Effective Visual Impairment: Partially Limited Bolt Cutter Required: No Beliefs That Will Affect Care: None marital status: Single marital status details: Boyfriend Current Living Situation: Parent Current Living Situation Comment: father Feels Safe at Home: Yes Safety Concerns: Feels Safe At This Time Smoking Status: Current every day smoker Tobacco Type: cigarettes ; Cigarettes Per Day: 10 ; Second Hand Exposure: Yes ; Hx Alcohol Use: Yes Alcohol type: other Alcohol Intake Frequency Comment: 6-7 daily Hx Substance Use: No Review of Systems Review of Systems: All systems reviewed & are unremarkable except as noted in HPI & below Physical Exam Physical Exam: General- No acute distress Head- atraumatic Eyes- PERRL, EOMI, +nystagmus ENT- oropharynx clear Neck- supple, no JVD Lungs- clear to auscultation Heart-+tachycardia, no murmur Abdomen- normal bowel sounds, soft, nontender Extremities- no calf tenderness Neuro- alert, oriented x 3; PERRL, EOMI; no facial palsy; no dysarthria, +tremor Skin- warm & dry Results & Data Results & Data ([facility]) Vital Signs (Past 12 Hours) Vital Signs Temp Pulse Pulse Resp BP BP Pulse Ox 01/19/20 10:44 100 H 18 131/91 98 01/19/20 09:26 96 01/19/20 08:51 36.9 C 130 H 22 139/[address] head/brain wo con CT DOSE: 767.83 mGy.cm HISTORY: Trauma head injury, seizure TECHNIQUE: Multiaxial CT images of the head were performed without the use of intravenous contrast. A dose lowering technique was utilized adhering to the principles of ALARA. Comparison: None. Findings: The paranasal sinuses and mastoid air cells are clear. The calvarium and skull base are intact. The ventricles and sulci are within normal limits. There is no mass, hematoma, midline shift, or acute infarct. Impression: No acute intracranial abnormality. ACT 112: Negative or not required by law. The above report was generated using voice recognition software. It may contain grammatical, syntax or spelling errors. Electronically signed by: Sánchez Freeman M.D. 01/19/2020 9:58 AM Dictated: 01/19/20956 Transcribed: 01/19/20956
[2020-01-19] MEDS ORDERED: LORazepam 1 MG/2 ML VIAL IV PRN (14:52)
[2020-01-19] MEDS ORDERED: ETONOGESTREL PV SCH (14:52)
[2020-01-19] MEDS ORDERED: BENZONATATE 100 MG CAPSULE PO PRN (14:52)
[2020-01-19] MEDS ORDERED: GABAPENTIN 1200MG ALCOHOL WITHDRAWAL LOAD PO ONE (14:52)
[2020-01-19] MEDS ORDERED: ETHINYL ESTRADIOL PV SCH (14:52)
[2020-01-19] MEDS ORDERED: hydrOXYzine HCl 10 MG TAB PO PRN (15:01)
[2020-01-19] MEDS ORDERED: GABAPENTIN 600 MG TAB PO SCH (15:30)
[2020-01-19 17:06] LABS: Appearance Urine Cloudy (Clear); Bacteria Urine Automated 3+ (Negative); Bilirubin Urine Negative (Negative); Blood Urine Negative (Negative); Color Urine Yellow; Epithelial Cell Urine Auto >30 /lpf (0-5); Glucose Urine UA Negative (Negative); Ketones Urine Negative (Negative); Leukocyte Esterase Urine 1+ (Negative); Nitrite Urine Negative (Negative); Protein Urine Negative (Negative); Specific Gravity Urine 1.015 (1.000-1.030); Urobilinogen Urine Negative (Negative); pH Urine 7.5 (4.5-7.5)
[2020-01-19 17:22] LABS: Amphetamines+Metham, Urine Neg (Neg); Barbiturates, Urine Neg (Neg); Benzodiazepine, Urine Neg (Neg); Cocaine, Urine Neg (Neg); MDMA (Ecstacy), Urine Neg (Neg); Methadone, Urine Neg (Neg); Opiate, Urine Neg (Neg); Phencyclidine, Urine Neg (Neg)
[2020-01-19] MEDS ORDERED: SODIUM CHLORIDE 0.9% 1000ML 1,000 ML IV SCH (18:15)
[2020-01-19] MEDS ORDERED: LORazepam 3 MG/6 ML VIAL IV PRN (20:03)
[2020-01-19] MEDS ORDERED: ATIVAN IV ALCOHOL WITHDRAWL IV PRN (20:03)
[2020-01-19] MEDS: MAGNESIUM CHLORIDE 64MG DELAYED REL TAB PO SCH (20:51)
[2020-01-19] MEDS: GABAPENTIN 600 MG TAB PO SCH (20:52)
[2020-01-19] MEDS: NICOTINE 14 MG/24 HR PATCH TD SCH (20:52)
[2020-01-19] MEDS: LORazepam 2 MG/4 ML VIAL IV PRN (20:55)
[2020-01-20] MEDS: GABAPENTIN 600 MG TAB PO SCH ×3 (03:22→22:09)
[2020-01-20 06:19] LABS: Hematocrit (blood only) 35.6 % (37-47); Hemoglobin 11.8 g/dL (12.0-16.0); Mean Corpuscular Hemoglobin 34.3 pg (25-34); Mean Corpuscular Hgb Conc 33.1 g/dL (32-36); Mean Corpuscular Volume 103.5 fL (80-100); Mean Platelet Volume 9.5 fL (7.4-10.4); Platelet Count 206 K/uL (130-400); RDW Coefficient of Variation 15.5 % (11.5-14.5); RDW Standard Deviation 52.6 fL (36.4-46.3); Red Blood Count 3.44 M/uL (4.2-5.4); White Blood Count 4.17 K/uL (4.8-10.8)
[2020-01-20 06:58] LABS: Blood Urea Nitrogen < 1 mg/dl (7-18); Calcium 8.7 mg/dl (8.5-10.1); Carbon Dioxide 21 mmol/L (21-32); Chloride 109 mmol/L (98-107); Creatinine Clr Calc Pharmacy 91.5 ml/min; Est GFR (African American) 117.1; Glucose 93 mg/dl (70-99); Magnesium 1.8 mg/dl (1.8-2.4); Sodium 138 mmol/L (136-145)
[2020-01-20] MEDS: FLUOXETINE HCL 20 MG CAP PO SCH (08:33)
[2020-01-20] MEDS: MAGNESIUM CHLORIDE 64MG DELAYED REL TAB PO SCH ×2 (08:34→19:29)
[2020-01-20] MEDS: ARIPiprazole 5 MG TAB PO SCH (08:34)
[2020-01-20] MEDS: NICOTINE 14 MG/24 HR PATCH TD SCH (08:34)
[2020-01-20] MEDS: NALTREXONE HCL 50 MG TAB PO SCH (08:34)
[2020-01-20] MEDS: FOLIC ACID 1 MG TAB PO SCH (08:35)
[2020-01-20] MEDS: LORazepam 2 MG/4 ML VIAL IV PRN ×3 (08:50→23:12)
[2020-01-20] MEDS ORDERED: FOLIC ACID 1 MG TAB PO SCH (09:00)
[2020-01-20] MEDS: POTASSIUM CHLORIDE / WTR 10 MEQ/100 ML PLCT IV SCH ×2 (09:14→11:15)
[2020-01-20] MEDS ORDERED: POTASSIUM CHLORIDE 20 MEQ TABCR PO ONE (09:15)
--- NOTE | 2020-01-20 11:02 | Electrocardiogram Report ---
Test Reason : Blood Pressure : / mmHG Vent. Rate : 093 BPM Atrial Rate : 093 BPM P-R Int : 152 ms QRS Dur : 080 ms QT Int : 416 ms P-R-T Axes : 042 057 050 degrees QTc Int : 517 ms Normal sinus rhythm Prolonged QT Abnormal ECG When compared with ECG of 19-NOV-2019 21:41, No significant change was found Confirmed by Mikey Armstrong ([id number]) on 01/20/2020 11:02:11 AM Referred By: REFERRED SELF Confirmed By:Mikey Armstrong
[2020-01-20] MEDS: THIAMINE HCL 100 MG TAB PO SCH (11:57)
--- NOTE | 2020-01-20 12:38 | Psychiatric Consultation ---
Date of Consultation January 20, 2020 Impression / Recommendations Impression Dr. Felicitas Madden was directly involved in review and discussion of the patient's case and participated in medical decision making regarding treatment recommendations. RECOMMENDATIONS: 01/19 - Continue alcohol withdrawal monitoring and ongoing treatment per primary team. Two most recent AWSS scores were 9 and 8. - Pt denies significant changes to her mood recently, admitting it has been "actually pretty good." She did indicate during discussion with psychiatric nurse liaison that she is not generally compliant with her psychiatric medication regimen. It seems most beneficial at this time to encourage compliance with current regimen rather than suggesting adjustments. Pt is also at increased risk of seizure during acute alcohol withdrawal, and adjustment to her psychiatric medication regimen have the risk of reducing the seizure threshold. - Once patient is better able to participate in conversation, we will attempt to discuss discharge considerations - patient not able at this time to comment on desire to return to rehab versus seek outpatient treatment. Pt did verbalize willingness for outpatient psychiatric providers, but is unable to provide information about whether or not these services are currently in place. - At this time, there is no indication for inpatient psychiatric treatment. Pt is denying SI, and hallucinations are best explained by alcohol withdrawal at this time. - Under current mental health laws in [place], a person cannot be involuntarily committed to substance abuse treatment; however, our primary recommendation would be that patient pursue inpatient D&A rehab after medical clearance. Risk Factors Assessment Do You Have Access To A Gun?: No Psych History Identifying Data 29-year-old female admitted medically on 01/19/2020 after presenting to the ED status post seizure. It is reported the patient was recently discharged from inpatient drug and alcohol rehabilitation within the last 3 to 4 weeks; however, began drinking alcohol again 2 to 3 days after she returned home. It is repor corky that father witnessed a seizure while at home, and patient was brought to the ED by EMS. Psychiatric consultation was requested to evaluate the patient for "depression." Chief Complaint "So I had that seizure. I think it was right in [facility]. There was a gracie walking down the street in a Cinderella dress, no lie." History of Present Illness Edna Pantoja is a 29-year-old female admitted medically on 01/19/2020 after presenting to the ED via EMS status post seizure. ED documentation suggest the patient had been discharged from inpatient drug and alcohol rehabilitation 3 to 4 weeks ago; however, began using alcohol again 2 to 3 days after she returned home. It is reported that patient is living with her father, who witnessed the patient's seizure and called EMS. Patient was evaluated in the ED and admitted medically for alcohol withdrawal. Psychiatric consultation was requested to evaluate patient for "depression." Patient has been seen on our service now numerous times, all within the context of alcohol withdrawal. She was most recently seen on 11/25/2019 for the same. Although patient is cooperative with psychiatric evaluation, she is limited in her ability to participate in a productive conversation. Patient is disoriented and unable to provide a consistent explanation of where she currently has. At one point, patient appeared to be talking to individuals in the room who were not truly present. When asked who patient was addressing, she began to verba lize names and later indicated that these individuals are coworkers of hers. Patient's perception of her location changed numerous times during our encounter - at one point she was believing she was still in rehab, at another time she believed she was interacting with her coworkers at work. Patient was asked the date, to which she initially responded "March 11", then "", then "the 13th hour." Pt eventually settled on a date of "April 20, 2020." Patient is able to recall that she had a seizure prior to admission, with believes that her seizure occurred in [facility] and that she was driven to the ED by an employee at [facility]. This provider did explain to the patient that the current belief is that she is going through alcohol withdrawal, and that this may explain why she is not thinking very clearly. Patient states that prior to her admission she did start a new job at [employer], and that this has been going well. She interrupts this provider's questions several times to offer her Membership Plus card for this provider to receive discounted purchases. Patient is unable to comment on any outpatient psychiatric treatment at this time. She did deny current suicidal ideation, but did state "a few days ago I was throwing up and I had thoughts" - patient was unable to explain if this was truly related to this admission, or if the suicidal thoughts had occurred previously. Pt stated that her mood has been "actually pretty good" recently and denied any concerns. Pt is not sure at this time if she would like to go back to a rehab, but does indicate interest in outpatient psychiatric treatment. Pt was unable to provide any additional reliable information at this time. She was agreeable with us continuing to follow-up with her case and review ongoing treatment recommendations. Past Psychiatric History Previous Psych History: Reported documentation of eating disorder as a child. Non-specific symptoms of anxiety and depression in the past. Outpatient Services: Pt previously had an outpatient therapist though [facility] - unclear if this treatment is ongoing Pt unable to provide reliable information regarding her outpatient psychiatric treatment at this time Previous Psych Admissions: Denied; several psychiatric consultations for "depression" in the setting of alcohol withdrawal. Do You Have Access To A Gun?: No History of Previous Suicide Attempt: No Past Medication Trials: Per 11/2019 psychiatric consultation: 1. Xanax 2. Hydroxyzine 3. Topamax 4. Doxepin 5. Prozac 6. Abilify Allergies Allergy/AdvReac Type Severity Reaction Status Date / Time No Known Allergies Allergy Unverified 01/19/20 10:41 Home Medications Home Medications Medication Instructions Recorded Confirmed Type fluoxetine [Prozac] 60 mg PO QAM 11/03/18 01/19/20 History aripiprazole [Abilify] 5 mg PO QAM 09/25/19 01/19/20 History folic acid 1 mg PO QAM 30 Days #30 tab 10/08/19 01/19/20 Rx benzonatate [Tessalon Perles] 100 mg PO TID PRN 11/19/19 01/19/20 History etonogestrel-ethinyl estradiol 1 vag ring VAGINAL DIRECTED 11/19/19 01/19/20 History [NuvaRing] magnesium chloride [Mag 64] 64 mg PO BID 11/19/19 01/19/20 History naltrexone 50 mg PO QAM 11/19/19 01/19/20 History Family History Denies known mental health history. Substance Abuse History Patient is unable to provide specifics at this time regarding her alcohol use. ED documentation suggest the patient drinks "3-4 tall cans of Cosmo's Hard" at 15% alcohol content per day. BAL at time of presentation to the ED was undetectable at <3.0. Remainder of her toxicology screen was negative. Personal History Living Arrangements: Home (With father in [place]) Living Arrangements Comments: Patient grew up in [place], parents are . 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 [employer]) Marital Status: Number Of Children: N/A Beliefs That Will Affect Care: None Patient History Medical History Admitted to intensive care unit Alcohol withdrawal Alcohol withdrawal seizure (Inactive) Alcoholism Depression Elevated LFTs Hypophosphatemia Pulmonary abscess Sepsis (Inactive) Severe sepsis Thrombocytopenia (Inactive) Tobacco use Surgical History No pertinent past surgical history Family History Mother Diabetes Social History Preferred Language: Cape Verdean Communication Ability: Effective Visual Impairment: Partially Limited Loader Unloader Required: No Beliefs That Will Affect Care: None marital status: Single marital status details: Boyfriend Current Living Situation: Parent Current Living Situation Comment: father Feels Safe at Home: Yes Safety Concerns: Feels Safe At This Time Smoking Status: Current every day smoker Tobacco Type: cigarettes ; Cigarettes Per Day: 10 ; Second Hand Exposure: Yes ; Hx Alcohol Use: Yes Alcohol type: other Alcohol Intake Frequency Comment: 6-7 daily Hx Substance Use: No Physical Exam Psychiatric: Orientation: alert and oriented to person; + not oriented to place and + not oriented to time Patient is oriented to the bed, only in that she had a seizure prior to her admission. When asked when her seizure once, patient states "in February." Patient was asked the date numerous times, providing a different answer to each questioning. Patient ultimately decided on "April 20, 2020." Patient's orientation to place varies throughout conversation. At one point she is aware she is in the hospital, then she begins to act as though she is at work and surrounded by coworkers. There is also a moment where patient believed that she was still at the inpatient rehab. Overall, patient is cooperative but is disoriented. Apperance: appropriately dressed and + disheveled female of healthy-appearing weight seated on edge of bed. Patient appears fatigued, but in no acute distress. Patient's job length hair is dyed a dark-blue/black color. She is wearing paper scrubs with calf-height white and black boots. Eye Contact: + fair eye contact (Occasionally closing eyes, as if drifting off to sleep) Motor Behavior: + tremor; + abnormal motor movements (Making random gestures at hallucinations in the room) Speech: normal rate/rhythm/volume of speech Affect: + blunted affect (appearing sedated/fatigued and slowed ) Mood: no depressed mood ("Actually, I have been in a pretty good mood") Thought process is tangential and disorganized. Patient frequently changing topics and unable to demonstrate sustained attention. Suicidal Thoughts: denies suicidal thoughts and denies suicidal intent Homicidal Thoughts: denies homicidal thoughts Hallucinations: + auditory hallucinations and + visual hallucinations Patient denies auditory and visual hallucinations, though she is very clearly gesturing to coworker she is seeing in the room. Patient interrupts conversation with this provider to respond back to conversations with various internal stimuli. Cognition: + attention not intact Insight: + impaired insight Judgement: + impaired judgement Vital Signs (Past 24 Hours): Last Vital Signs Temp 37.0 C 01/20/20 12:18 Pulse 110 H 01/20/20 12:18 Resp 18 01/20/20 12:18 BP 133/91 01/20/20 12:18 Pulse Ox 96 01/20/20 12:18 Review of Systems Constitutional: denied Cardiovascular: denied Respiratory: denied Gastrointestinal: denied Psychiatric: denies symptoms other than stated above Total of at least 10 systems reviewed, pertinent positives as above and in HPI. Results & Data (PSY) Medications Administered Aripiprazole (Abilify) 5 mg PO [facility] Stop: 02/19/20 08:59 Last Admin: 01/20/20 08:34 Dose: 5 mg Documented by: [id number] Chlordiazepoxide HCl (Librium) 10 mg PO Q12H [facility] Stop: 02/18/20 15:59 Last Admin: 01/20/20 03:21 Dose: 10 mg Documented by: [id number] Admin: 01/19/20 16:32 Dose: 10 mg Documented by: [id number] Fluoxetine HCl (Prozac) [facility] Stop: 02/19/20 08:59 Last Admin: 01/20/20 08:33 Dose: 60 mg Documented by: [id number] Folic Acid (Folvite) 1 mg PO [facility] Stop: 02/19/20 08:59 Last Admin: 01/20/20 08:35 Dose: 1 mg Documented by: [id number] Lorazepam (Ativan) 1 mg in 2 mls @ 0.5 mls/min IV UD PRN PRN Reason: seizure only Stop: 02/18/20 14:51 Last Admin: 01/20/20 03:21 Dose: 0.5 mls/min Documented by: [id number] Lorazepam (Ativan) 2 mg in 4 mls @ 4 mls/min IV UD PRN; Protocol PRN Reason: EtOH Withdrawl AWSS Score 8,9 Stop: 02/18/20 20:02 Last Admin: 01/20/20 12:25 Dose: 4 mls/min Documented by: [id number] Admin: 01/20/20 08:50 Dose: 4 mls/min Documented by: [id number] Admin: 01/19/20 20:55 Dose: 4 mls/min Documented by: [id number] Magnesium Chloride (Slow-Mag) 64 mg PO BID [facility] Stop: 02/18/20 20:59 Last Admin: 01/20/20 08:34 Dose: 64 mg Documented by: [id number] Admin: 01/19/20 20:51 Dose: 64 mg Documented by: [id number] Miscellaneous (Remove Nicoderm Patch) 1 ea N/A [id number] [facility] Stop: 02/19/20 08:58 Last Admin: 01/20/20 08:35 Dose: 1 ea Documented by: [id number] Naltrexone HCl (Naltrexone Hcl) 50 mg [facility] Stop: 02/19/20 08:59 Last Admin: 01/20/20 08:34 Dose: 50 mg Documented by: [id number] Nicotine (Nicoderm Cq) 14 mg TD [facility] Stop: 02/18/20 18:44 Last Admin: 01/20/20 08:34 Dose: 14 mg Documented by: [id number] Admin: 01/19/20 20:52 Dose: 14 mg Documented by: [id number] Thiamine HCl (Vitamin B-1) 100 [facility] Stop: 02/19/20 08:59 Last Admin: 01/20/20 11:57 Dose: 100 mg Documented by: [id number] Coding Level of Care Code 99025 [facility] Intl Hosp Care Lvl 2
--- NOTE | 2020-01-20 13:13 | Neurology Consultation ---
Date of Consultation January 20, 2020 Assessment & Plan (1) Seizure: 1. CT head- no acute findings 2. EEG- pending read 3. psychiatry for any further medication adjustments 4. correct electrolyte abnormalities 5. will discuss restart of Topamax 50 daily x 1 week and then 50 BID 6. once medically stable ok to discharge follow up in neurology in 4-6 weeks or after the Covid 19 restrictions have cleared. Present on Admission?: Yes (2) Alcohol withdrawal seizure with delirium: Present on Admission?: Yes (3) Alcohol abuse: Present on Admission?: Yes Supervising Physician Co-Signing Physician Notes Patient was seen and examined. A 29 year old woman with history of alcohol use disorder and alcohol withdrawal seizures. Recently discharged from rehab and relapsed with alcohol. Reports having several drinks the evening prior to the morning of witnessed seizure. Patient reports no warning prior to event. Bit the right side of her tongue. Denies incontinence. Denies heavy alcohol use the night prior. Routine EEG reviewed and is Normal. no epileptiform activity. She was previously on Topamax. DDx certainly includes alcohol withdrawal seizure or seizure secondary to chronic alcohol abuse. She was on topamax in the past. this is a broad spectrum AED which has some evidence for use for help with alcohol abstinence and mood stabilization. She has no plans for with no history of kidney stones. tolerated medication well in the past. Discussed AE including paresthesias and weight loss. Recommend starting Topamax 50 mg daily x7 days then 50 mg BID and continue. Patient is NOT driving. Outpatient follow up with neurology in 8 weeks. Please call with further questions or concerns. History of Present Illness Reason for Consultation: seizure Requesting Physician: Kaleigh Mcfarland MD Attending Physician: Kaleigh Mcfarland MD History of Present Illness Edna is a 29 year old female with PMH- EtOH abuse, anxiety, mood disorder, tobacco abuse, seizure thought to be alcohol withdrawn, multiple admissions for alcoholism was brought to the ER by EMS after father witness seizure episode this morning. She was discharged in November 2019 to EtOH rehab treatment where she spent 4 weeks and discharge at the beginning of December. Three days after discharge from rehab she started drinking again. She drinks 24 ounces cans Cosmo's hard 15% alcohol and drinks 4 cans daily. Her father witnessed the seizure she fell on the floor and was having jerking movement. Her lips were bleeding because she bite her lips during the seizure. She thinks this is 5 x she has had seizures. In the ED her EtOH level was 3. She denies CP, SOB, abdominal pain, one sided weakness, numbness tingling, N, V, loss of bowel or bladder. Allergies Allergy/AdvReac Type Severity Reaction Status Date / Time No Known Allergies Allergy Unverified 01/19/20 10:41 Home Medications Home Medications Medication Instructions Recorded Confirmed Type fluoxetine [Prozac] 60 mg PO QAM 11/03/18 01/19/20 History aripiprazole [Abilify] 5 mg PO QAM 09/25/19 01/19/20 History folic acid 1 mg PO QAM 30 Days #30 tab 10/08/19 01/19/20 Rx benzonatate [Tessalon Perles] 100 mg PO TID PRN 11/19/19 01/19/20 History etonogestrel-ethinyl estradiol 1 vag ring VAGINAL DIRECTED 11/19/19 01/19/20 History [NuvaRing] magnesium chloride [Mag 64] 64 mg PO BID 11/19/19 01/19/20 History naltrexone 50 mg PO QAM 11/19/19 01/19/20 History Patient History Medical History Admitted to intensive care unit Alcohol withdrawal Alcohol withdrawal seizure (Inactive) Alcoholism Depression Elevated LFTs Hypophosphatemia Pulmonary abscess Sepsis (Inactive) Severe sepsis Thrombocytopenia (Inactive) Tobacco use Surgical History No pertinent past surgical history Family History Mother Diabetes Social History Preferred Language: Tajik Communication Ability: Effective Visual Impairment: Partially Limited Home Attendant Required: No Beliefs That Will Affect Care: None marital status: Single marital status details: Boyfriend Current Living Situation: Parent Current Living Situation Comment: father Feels Safe at Home: Yes Safety Concerns: Feels Safe At This Time Smoking Status: Current every day smoker Tobacco Type: cigarettes ; Cigarettes Per Day: 10 ; Second Hand Exposure: Yes ; Hx Alcohol Use: Yes Alcohol type: other Alcohol Intake Frequency Comment: 6-7 daily Hx Substance Use: No Physical Exam Physical Exam: Physical Exam: Constitutional: appearance nourished, appears drowsy Ears, Nose, Mouth and Throat: mucous membranes moist, no injection and skin normal, eyes normal Cardiovascular: tachycardia Respiratory: course breath sounds Musculoskeletal: no peripheral edema and good distal pulses Skin: no stigmata of neurocutaneous disease noted and normal and intact Eyes: extraocular muscles intact (EOMI) and pupils equal, round and reactive to light (PERRL) NEUROLOGIC EXAMINATION: Mental status: Alert and interactive Oriented to full date and location Oriented to person Speech fluent with no evidence of aphasia Cranial Nerves smile eye brow raise symmetric Sensory: no deficit to light or cool touch Coordination: finger to nose no bi pass Gait/Stance: Posture normal. Gait normal: tandem gain steady Motor: Negative for pronator drift of out stretched arms with eyes closed. 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 triceps 5/5 bilaterally LE hip flex patellar plantar flex ext 5/5 bilaterally Results & Data Vital Signs (Past 12 Hours) Vital Signs Temp Pulse Pulse Resp BP Pulse Ox 01/20/20 12:18 37.0 C 110 H 18 133/91 96 01/20/20 08:30 36.8 C 115 H 18 134/93 96 01/20/20 07:20 37.1 C 106 H 18 136/96 96 01/20/20 07:00 92 H 01/20/20 02:28 37.1 C 92 H 18 124/85 96 Laboratory Results Abnormal lab results 01/19/20 01/20/20 01/20/20 Range/Units 15:30 06:06 06:06 WBC 4.17 L (4.8-10.8) K/uL RBC 3.44 L (4.2-5.4) M/uL Hgb 11.8 L (12.0-16.0) g/dL Hct 35.6 L (37-47) % MCV 103.5 H (80-100) fL MCH 34.3 H (25-34) pg RDW Std Deviation 52.6 H (36.4-46.3) fL RDW Coeff of Vinod 15.5 H (11.5-14.5) % Potassium 3.0 L D (3.5-5.1) mmol/L Chloride 109 H (98-107) mmol/L BUN < 1 L (7-18) mg/dl Urine Appearance Cloudy A (Clear) Ur Leukocyte Esterase 1+ H (Negative) Urine WBC (Auto) 10-30 H (0-5) /hpf Urine RBC (Auto) 5-10 H (0-4) /hpf U Hyaline Cast (Auto) 5-10 H (0-5) /lpf U Epithel Cells (Auto) >30 H (0-5) /lpf Urine Bacteria (Auto) 3+ H (Negative) Diagnostic Findings CT head- no acute abnormalities
--- NOTE | 2020-01-20 15:57 | Hospitalist Progress Note ---
Date of Service January 20, 2020 Assessment & Plan (1) Seizure: Witnessed tonic clonic seizure by father Mostly related to alcohol withdrawal seizure CT head showed no acute intracranial abnormality Received Ativan IV in the ER EEG done pending report Neuro on board Plan to restart Topamax 50 daily x 1 week and then 50 BID, will discuss with patient Continue Ativan prn for seizure Seizure precaution Alcohol abuse Alcohol Withdrawal Recently [facility] protocol Alcohol level on admission less than 3 Hx of seizure related to alcohol withdrawn Continue Gabapentin/Librium/ Ativan alcohol withdrawn protocol Continue monitor closely for signs of withdrawn and DT Continue Folic acid and Thiamine Counseling on alcohol cessation Will discuss for possible to go back for inpatient alcohol rehab or outpatient rehab Electrolytes imbalance K 3 and Mg 1.8 today K replaced today Continue monitor Electrolytes Abnormal UA UA positive for Leukocytes and bacteria Denies any urinary symptoms Urine cx grew more than 3 organisms (contamination) Tachycardia Mostly related to alcohol withdrawn Continue monitor Tobacco abuse Counseling on tobacco cessation Continue Nicotine patch Depression Anxiety Psych on board Denies any suicidal thought Pt said that after taking her psych med, she felt drowsy Continue Fluoxetine 60mg daily and Aripiprazole Continue Vistaril for anxiety attack Will follow psych recommendation Code status Full code Disposition Admission and Anticipated Discharge Date Admission Date: January 19, 2020 Subjective Pt was seen and examined Sitting at the edge of the bed with sitter at bedside Pt followed commands and answered questions appropriately Denies any hallucination, suicidal thought, voices, chest pain and Palpitation Physical Exam Physical Exam: General- No acute distress Head- atraumatic Eyes- PERRL, EOMI, +nystagmus ENT- oropharynx clear Neck- supple, no JVD Lungs- clear to auscultation Heart-+tachycardia, no murmur Abdomen- normal bowel sounds, soft, nontender Extremities- no calf tenderness Neuro- alert, oriented x 3; PERRL, EOMI; no facial palsy; no dysarthria, +mild tremor Skin- warm & dry Results & Data Results & Data ([facility]) Vital Signs (Past 12 Hours) Vital Signs Temp Pulse Pulse Resp BP Pulse Ox 01/20/20 14:49 36.6 C 102 H 18 130/93 100 01/20/20 12:18 37.0 C 110 H 18 133/91 96 01/20/20 08:30 36.8 C 115 H 18 134/93 96 01/20/20 07:20 37.1 C 106 H 18 136/96 96 01/20/20 07:00 92 H
[2020-01-20] MEDS: LORazepam 1 MG/2 ML VIAL IV PRN (17:07)
--- NOTE | 2020-01-20 20:06 | Electroencephalogram ---
EEG Procedure Note Date of Service January 20, 2020 Start / End Times Start Time: 11:25 End Time: 11:[address] Bartolo Farris History A 29 year old woman with history of alcohol withdrawal seizures. EEG performed for evaluation of epileptiform activity. Home Medication List Home Medications Medication Instructions Recorded Confirmed Type fluoxetine [Prozac] 60 mg PO QAM 11/03/18 01/19/20 History aripiprazole [Abilify] 5 mg PO QAM 09/25/19 01/19/20 History folic acid 1 mg PO QAM 30 Days #30 tab 10/08/19 01/19/20 Rx benzonatate [Tessalon Perles] 100 mg PO TID PRN 11/19/19 01/19/20 History etonogestrel-ethinyl estradiol 1 vag ring VAGINAL DIRECTED 11/19/19 01/19/20 History [NuvaRing] magnesium chloride [Mag 64] 64 mg PO BID 11/19/19 01/19/20 History naltrexone 50 mg PO QAM 11/19/19 01/19/20 History Inpatient Medication List Aripiprazole (Abilify) 5 mg PO QAM [facility] Stop: 02/19/20 08:59 Last Admin: 01/20/20 08:34 Dose: 5 mg Documented by: [id number] Chlordiazepoxide HCl (Librium) 10 mg PO Q12H [facility] Stop: 02/18/20 15:59 Last Admin: 01/20/20 15:52 Dose: 10 mg Documented by: [id number] Admin: 01/20/20 03:21 Dose: 10 mg Documented by: [id number] Admin: 01/19/20 16:32 Dose: 10 mg Documented by: [id number] Fluoxetine HCl (Prozac) 60 mg PO QAM [facility] Stop: 02/19/20 08:59 Last Admin: 01/20/20 08:33 Dose: 60 mg Documented by: [id number] Folic Acid (Folvite) 1 mg PO QAM [facility] Stop: 02/19/20 08:59 Last Admin: 01/20/20 08:35 Dose: 1 mg Documented by: [id number] Gabapentin (Neurontin) 600 mg PO Q8H [facility] Stop: 01/21/20 06:01 Last Admin: 01/20/20 12:53 Dose: 600 mg Documented by: [id number] Lorazepam (Ativan) 1 mg in 2 mls @ 0.5 mls/min IV UD PRN PRN Reason: seizure only Stop: 02/18/20 14:51 Last Admin: 01/20/20 03:21 Dose: 0.5 mls/min Documented by: [id number] Lorazepam (Ativan) 1 mg in 2 mls @ 2 mls/min IV UD PRN; Protocol PRN Reason: EtOH Withdrawl AWSS Score 6,7 Stop: 02/18/20 20:02 Last Admin: 01/20/20 17:07 Dose: 2 mls/min Documented by: [id number] Lorazepam (Ativan) 2 mg in 4 mls @ 4 mls/min IV UD PRN; Protocol PRN Reason: EtOH Withdrawl AWSS Score 8,9 Stop: 02/18/20 20:02 Last Admin: 01/20/20 12:25 Dose: 4 mls/min Documented by: [id number] Admin: 01/20/20 08:50 Dose: 4 mls/min Documented by: [id number] Admin: 01/19/20 20:55 Dose: 4 mls/min Documented by: [id number] Magnesium Chloride (Slow-Mag) 64 mg PO BID [facility] Stop: 02/18/20 20:59 Last Admin: 01/20/20 19:29 Dose: 64 mg Documented by: [id number] Admin: 01/20/20 08:34 Dose: 64 mg Documented by: [id number] Admin: 01/19/20 20:51 Dose: 64 mg Documented by: [id number] Miscellaneous (Remove Nicoderm Patch) 1 ea N/A DAILY@0859 [facility] Stop: 02/19/20 08:58 Last Admin: 01/20/20 08:35 Dose: 1 ea Documented by: [id number] Naltrexone HCl (Naltrexone Hcl) 50 mg PO QAM [facility] Stop: 02/19/20 08:59 Last Admin: 01/20/20 08:34 Dose: 50 mg Documented by: [id number] Nicotine (Nicoderm Cq) 14 mg TD QAM [facility] Stop: 02/18/20 18:44 Last Admin: 01/20/20 08:34 Dose: 14 mg Documented by: [id number] Admin: 01/19/20 20:52 Dose: 14 mg Documented by: [id number] Thiamine HCl (Vitamin B-1) 100 mg PO QAM [facility] Stop: 02/19/20 08:59 Last Admin: 01/20/20 11:57 Dose: 100 mg Documented by: [id number] Discontinued Medications Gabapentin (Neurontin) 1,200 mg PO TODAY@1530 [facility] Stop: 01/19/20 15:31 Last Admin: 01/19/20 16:32 Dose: 1,200 mg Documented by: [id number] Gabapentin (Neurontin) 600 mg PO Q6H [facility] Stop: 01/20/20 04:01 Last Admin: 01/20/20 03:22 Dose: 600 mg Documented by: [id number] Admin: 01/19/20 20:52 Dose: 600 mg Documented by: [id number] Lorazepam (Ativan) 1 mg in 2 mls @ 2 mls/min IV NOW STA Stop: 01/19/20 09:00 Last Admin: 01/19/20 09:24 Dose: 2 mls/min Documented by: [id number] Multivitamins 10 ml/ Thiamine HCl 100 mg/ Folic Acid 1 mg/Sodium Chloride 1,011.2 mls @ 500 mls/hr IV .Q2H2M ONE Stop: 01/19/20 11:00 Last Infusion: 01/19/20 12:01 Dose: 0 mls/hr Documented by: [id number] Admin: 01/19/20 09:51 Dose: 500 mls/hr Documented by: [id number] Potassium Chloride (K Florentin / Wtr) 10 meq in 100 mls @ 100 mls/hr IV Q1H [facility] Stop: 01/19/20 14:14 Last Infusion: 01/19/20 14:40 Dose: 0 mls/hr Documented by: [id number] Admin: 01/19/20 13:40 Dose: 100 mls/hr Documented by: [id number] Infusion: 01/19/20 13:33 Dose: 0 mls/hr Documented by: [id number] Admin: 01/19/20 12:31 Dose: 100 mls/hr Documented by: [id number] Infusion: 01/19/20 12:29 Dose: 0 mls/hr Documented by: [id number] Admin: 01/19/20 11:24 Dose: 100 mls/hr Documented by: [id number] Infusion: 01/19/20 11:24 Dose: 0 mls/hr Documented by: [id number] Admin: 01/19/20 10:21 Dose: 100 mls/hr Documented by: [id number] Magnesium Sulfate/Dextrose (Magnesium Sulfate / D5w) 1 gm in 100 mls @ 100 mls/hr IV Q1H [facility] Stop: 01/19/20 12:14 Last Infusion: 01/19/20 12:29 Dose: 0 mls/hr Documented by: [id number] Admin: 01/19/20 11:17 Dose: 100 mls/hr Documented by: [id number] Infusion: 01/19/20 11:17 Dose: 100 mls/hr Documented by: [id number] Admin: 01/19/20 10:21 Dose: 100 mls/hr Documented by: [id number] Lorazepam (Ativan) 1 mg in 2 mls @ 2 mls/min IV NOW STA Stop: 01/19/20 12:13 Last Admin: 01/19/20 12:21 Dose: 2 mls/min Documented by: [id number] Sodium Chloride (Nss 1000ml) 1,000 mls @ 100 mls/hr IV .Q10H [facility] Stop: 01/20/20 04:14 Last Admin: 01/20/20 00:54 Dose: Not Given Documented by: [id number] Potassium Chloride (K Florentin / Wtr) 10 meq in 100 mls @ 100 mls/hr IV Q1H [facility] Stop: 01/20/20 11:14 Last Infusion: 01/20/20 12:35 Dose: 0 mls/hr Documented by: [id number] Admin: 01/20/20 11:15 Dose: 75 mls/hr Documented by: [id number] Infusion: 01/20/20 11:14 Dose: 0 mls/hr Documented by: [id number] Admin: 01/20/20 09:14 Dose: 50 mls/hr Documented by: [id number] Potassium Chloride (Klor-Con M20) 40 meq PO NOW STA Stop: 01/19/20 10:07 Last Admin: 01/19/20 10:22 Dose: 40 meq Documented by: [id number] Potassium Chloride (Klor-Con M20) 40 meq PO ONE ONE Stop: 01/20/20 09:16 Last Admin: 01/20/20 11:56 Dose: 40 meq Documented by: [id number] Description This is a 21 electrode EEG with a single channel dedicated to limited EKG. The electrodes were placed in accordance with the International 10-20 system. REPORT: At the onset of the EEG, the patient is awake. The background activity consist of 10-11 Hz, persistent, posteriorly dominant, moderate amplitude, symmetric and rhythmic activity that is reactive to eye opening. Anteriorly, it consist of a mixture of low voltage indeterminate activity and 15-25 Hz, persistent, low amplitude, symmetric and rhythmic activity. Stepwise intermittent photic stimulation does not induce any abnormalities. Drowsiness is characterized by low amplitude mixed frequency activity, roving eye movements, and decreased eye blinking and muscle artifact. IMPRESSION: This is a normal awake and drowsy EEG. There is no evidence of focal slowing or epileptiform activity.
[2020-01-21] MEDS ORDERED: NICOTINE POLACRILEX 2 MG GUM MT PRN (01:41)
--- NOTE | 2020-01-21 01:41 | Communication Note ---
Date of Service: January 21, 2020 Made aware by RN of patient intent to leave the hospital even if it means leaving AGAINST MEDICAL ADVICE. I contacted Mr. Bob Pantoja (patient's father) who instructed me not to allow daughter to leave even if she is mentating well as patient at risk for harm if released given history of impulsive behavior/poor judgment. Previous incident cited by father. Discussed with psych liaison who agrees that 302 commitment may be necessary if patient insists on leaving given patient's father's concerns. After conferring with patient and her father (over the phone), patient agreed to stay. Will relay to AM provider.
[2020-01-21] MEDS: GABAPENTIN 600 MG TAB PO SCH ×2 (06:07→18:56)
[2020-01-21 07:19] LABS: BUN Creatinine Ratio 3.9 (10-20); Creatinine Clr Calc Pharmacy 100.3 ml/min; Est GFR (African American) 130.8; Est GFR (Non-African American) 112.9; Magnesium 1.7 mg/dl (1.8-2.4); Potassium 3.5 mmol/L (3.5-5.1)
[2020-01-21] MEDS ORDERED: MAGNESIUM SULFATE / D5W 1 GM/100 ML BAG IV ONE (08:30)
[2020-01-21] MEDS: MAGNESIUM CHLORIDE 64MG DELAYED REL TAB PO SCH ×2 (08:41→21:08)
[2020-01-21] MEDS: THIAMINE HCL 100 MG TAB PO SCH (08:41)
[2020-01-21] MEDS: TOPIRAMATE 50 MG TAB PO SCH (08:41)
[2020-01-21] MEDS: NICOTINE 14 MG/24 HR PATCH TD SCH (08:42)
[2020-01-21] MEDS: ARIPiprazole 5 MG TAB PO SCH (08:42)
[2020-01-21] MEDS: NALTREXONE HCL 50 MG TAB PO SCH (08:42)
[2020-01-21] MEDS: FLUOXETINE HCL 20 MG CAP PO SCH (08:42)
[2020-01-21] MEDS: FOLIC ACID 1 MG TAB PO SCH (08:42)
[2020-01-21] MEDS: LORazepam 1 MG/2 ML VIAL IV PRN (08:53)
--- NOTE | 2020-01-21 09:56 | Psychiatric Progress Note ---
Date of Service January 21, 2020 Impression / Recommendations Impression Dr. Felicitas Madden has been directly involved in review and discussion of the patient's case and has participated in medical decision making regarding treatment recommendations. RECOMMENDATIONS: 01/20 - Ongoing treatment for alcohol withdrawal per primary team. 2 most recent AWSS assessments with scores of 2 at 04:20 and 7 at 08:47. Discharge planning per primary team when patient is deemed medically cleared. At time of evaluation by this provider, it is felt patient would have capacity to make the decision to leave the hospital AMA (though not requesting discharge at time of visit). - If patient again requests AMA discharge, her capacity for medical decision making should be assessed at the time she is requesting to leave - which can be done by any medical provider. In order for a patient to have capacity to make a specific treatment decision, they must meet the four following criteria: ability to recall/understand information related to the decision being made, appreciate their condition as well as the consequences of their decision, demonstrate ability to rationally process information being provided, and clearly communicate a choice. - While patient's history for poor judgment and impulsivity is known, there is no indication that these behaviors are directly related to a primary psychiatric condition - and they are likely best explained by her history of substance abuse. Primary recommendation remains for inpatient D&A rehabilitation, or at least outpatient D&A treatment. Pt is unwilling for both at this time. In [place], patient's are not legally able to be committed involuntarily for substance abuse treatment, and must make this decision of their own accord. We will be happy to assist with referrals should patient desire these services. - There is no criteria at this time for involuntary psychiatric treatment, and patient does not feel inpatient psychiatric treatment is necessary. She denies active SI, reports positive mood, is able to verbalize a safety plan, and is able to contract for safety outside of the hospital setting. No recommendation at this time for a 302 warrant or involuntary commitment. - Pt is declining referrals for outpatient mental health treatment, but was agreeable with this consult information being sent to her PCP for coordination of care. Pt is aware we are not planning to make medication adjustments during this acute withdrawal phase - she does indicate desire to speak with her PCP about the possibility of switching from Prozac to Zoloft. Risk Factors Assessment Do You Have Access To A Gun?: No Interval History Identifying Information 29-year-old female admitted medically on 01/19/2020 after presenting to the ED status post seizure. It is reported the patient was recently discharged from inpatient drug and alcohol rehabilitation within the last 3 to 4 weeks; however, began drinking alcohol again 2 to 3 days after she returned home. It is reported that father witnessed a seizure while at home, and patient was brought to the ED by EMS. Psychiatric consultation was requested to evaluate the patient for "depression", follow-up visit completed today as patient was rather disoriented during initial encounter. Chief Complaint "Hi, yeah I remember you." Review of Systems Notes Constitutional: denied, stating "I feel wonderful" Cardiovascular: denied Respiratory: denied Gastrointestinal: denied Neurological: denied Psychiatric: denies symptoms other than stated above Total of at least 10 systems reviewed, pertinent positives as above and in HPI. Subjective Subjective Patient was seen & assessed and interval progress reviewed with supervising psychiatrist and psychiatric nurse liaison. Liaison provides report regarding patient's request to be discharged AMA last evening. Pt reportedly did respond to conversations with staff and was agreeable with ongoing hospitalization. This provider seeing patient today for follow-up visit to discuss psychiatric recommendations. Upon initial encounter patient was found to be on the phone. When this provider returned several minutes later, the patient informed the caller "hold on, my boss is here to talk to me." After hanging up, the patient was quickly able to correct her error, admitting she recognized this provider from our conversation yesterday. Pt states that she is feeling better physically today, admitting to feeling "wonderful." She does request to know when she will be discharged. This provider reviewed present concerns for alcohol withdrawal, that she is still scoring rather high on AWSS scale, and was reminded of risks associated with leaving the hospital prior to medical clearance. Pt verbalized understanding of this explanation and requested to know "well then what do you need from me? What is this session for?" Pt was asked if she recalled events occurring prior to her admission (as yesterday she was disoriented and described a very different story than reported in the ED). Pt states "I had a seizure, so they brought me in." Now, patient is aware that she had a seizure at home, in her kitchen, and her father witnessed the events and called EMS. Pt reports feeling "a million times better today" in regard to withdrawal symptoms. Pt was asked about any recent concerns related to her mood - she states "No, not really. My mood's been pretty good, not depressed or anything." Pt does endorse "suicidal thoughts 2 days before my seizure" - but describes hopelessness and vague questions of existence "what are we working toward?" and "what's the point?" as well as "no one cares about me." Pt denies experiencing true suicidal thoughts, also denying plan or intent to harm herself or end her life. Pt states that during the episode of hopelessness prior to admission, she contacted several friends who offered to talk with her and spend time with her. Pt is able to articulate a safety plan and is future oriented in conversation. Pt is hopeful to return to work. Pt was offered inpatient psychiatric treatment if she felt this would be beneficial, but did not feel it was necessary at this time. In regard to substance abuse treatment, motivational interviewing was used to discuss patient's wishes. Pt is not able to commit at this time to a clear desire to stop using alcohol. She indicates that her family "wants me to stop cold turkey. I told them I'd if I did that." Pt was reminded that once her hospitalization is completed, she may have a more reasonable chance at maintaining sobriety if detox is completed. Pt states that she is prescribed Naltrexone and finds this helpful for her cravings - "even chocolate." She reports a desire to follow-up with her PCP, but is declining additional services at this time. Pt was reminded of primary recommendation for inpatient D&A rehab, but was also informed we could assist with setting up outpatient D&A treatment. Pt is also declining formal psychiatric treatment, but would like to discuss potential medication changes with her PCP. Pt states "I was thinking ab out trying Zoloft, because people tell me it works." Pt was made aware that our consult will be faxed to her PCP for coordination of care, and she was agreeable with this. Pt denied any additional services at this time. This provider offered to bring puzzle books or other activities to the patient in order to keep her busy while she awaits medical clearance. She declines at this time. Pt denies other assistance from our service at this time. She was made aware of how to reach out with additional questions and was informed that liaisons will continue to round on her periodically. She verbalized understanding and appreciation. Physical Exam Psychiatric Orientation: alert, oriented to person, oriented to time and + guarded (superficially cooperative ); + not oriented to place (did not provide a direct answer when asked city/facility name) Apperance: appropriately dressed (for setting, wearing hospital gown with pants underneath) and + disheveled (dark blue/black hair is matted, patient not showered ) Eye Contact: + fair eye contact (occasionally closing eyes as if drifting off to sleep) Motor Behavior: steady gait and station and + tremor (mild ) Speech: normal rate/rhythm/volume of speech Affect: + blunted affect (still appearing subdued/mildly sedated) Mood: no depressed mood ("Pretty good, not depressed or anything") Thought Process: goal directed thought process and + circumstantial thought process Thought Content: reality based without delusions at times referring to this provider as her "boss" then correcting herself. Suicidal Thoughts: denies suicidal thoughts, denies suicidal plan and denies suicidal intent Is able to verbalize a safety plan Homicidal Thoughts: denies homicidal thoughts Hallucinations: no auditory hallucinations and no visual hallucinations Patient denies - not appearing to be responding to internal stimuli at time of encounter Cognition: recent memory grossly intact (now aware of events leading to admission); + attention not intact (easily distracted) Insight: + poor insight (likely chronic ) Judgement: + poor judgement (likely chronic ) Vital Signs (Past 24 Hours) Last Vital Signs Temp 36.7 C 01/21/20 08:18 Pulse 115 H 01/21/20 08:18 Resp 20 01/21/20 08:18 BP 130/91 01/21/20 08:18 Pulse Ox 96 01/21/20 08:18 Results & Data ([facility]) Laboratory Results Laboratory Results - last 24 hr 01/21/20 06:21 Sodium 140 Potassium 3.5 D Chloride 112 H Carbon Dioxide 22 Anion Gap 6.0 BUN 3 L Creatinine 0.73 Est Cr Clr Drug Dosing 100.3 Est GFR ( Amer) 130.8 Est GFR (Non-Af Amer) 112.9 BUN/Creatinine Ratio 3.9 L Glucose 104 H Calcium 9.0 Magnesium 1.7 L Current Inpatient Medications Current Inpatient Medications: Current Inpatient Medications [facility] Stop: 02/19/20 08:59 Last Admin: 01/21/20 08:42 Dose: 5 mg Documented by: Benzonatate (Tessalon Perle) 100 mg PO TID PRN PRN Reason: Cough Stop: 02/18/20 14:51 Chlordiazepoxide HCl (Librium) 10 mg PO Q12H [facility] Stop: 02/18/20 15:59 Last Admin: 01/21/20 04:16 Dose: 10 mg Documented by: Fluoxetine HCl (Prozac) [facility] Stop: 02/19/20 08:59 Last Admin: 01/21/20 08:42 Dose: 60 mg Documented by: Folic Acid (Folvite) 1 mg PO [facility] Stop: 02/19/20 08:59 Last Admin: 01/21/20 08:42 Dose: 1 mg Documented by: Gabapentin (Neurontin) 600 mg PO Q12H [facility] Stop: 01/22/20 06:01 Gabapentin (Neurontin) 600 mg PO Q24H [facility] Stop: 01/23/20 06:01 Hydroxyzine HCl (Vistaril) 10 mg PO Q6H PRN PRN Reason: Anxiety Stop: 02/18/20 15:00 Lorazepam (Ativan) 1 mg in 2 mls @ 0.5 mls/min IV UD PRN PRN Reason: seizure only Stop: 02/18/20 14:51 Last Admin: 01/20/20 03:21 Dose: 0.5 mls/min Documented by: Lorazepam (Ativan) 1 mg in 2 mls @ 2 mls/min IV UD PRN; Protocol PRN Reason: EtOH Withdrawl AWSS Score 6,7 Stop: 02/18/20 20:02 Last Admin: 01/21/20 08:53 Dose: 2 mls/min Documented by: Lorazepam (Ativan) 2 mg in 4 mls @ 4 mls/min IV UD PRN; Protocol PRN Reason: EtOH Withdrawl AWSS Score 8,9 Stop: 02/18/20 20:02 Last Admin: 01/20/20 23:12 Dose: 4 mls/min Documented by: Lorazepam (Ativan) 3 mg in 6 mls @ 4 mls/min IV ONCE PRN; Protocol PRN Reason: EtOH Withdrawl AWSS Score >=10 Stop: 02/18/20 20:02 Magnesium Chloride (Slow-Mag) 64 mg PO BID [facility] Stop: 02/18/20 20:59 Last Admin: 01/21/20 08:41 Dose: 64 mg Documented by: Miscellaneous (Remove Nicoderm Patch) 1 ea N/A DAILY@0859 [facility] Stop: 02/19/20 08:58 Last Admin: 01/21/20 08:43 Dose: 1 ea Documented by: Naltrexone HCl (Naltrexone Hcl) [facility] Stop: 02/19/20 08:59 Last Admin: 01/21/20 08:42 Dose: 50 mg Documented by: Nicotine (Nicoderm Cq) 14 mg TD [facility] Stop: 02/18/20 18:44 Last Admin: 01/21/20 08:42 Dose: 14 mg Documented by: Nicotine Polacrilex (Nicorette 2mg) 1 piece MT Q1H PRN PRN Reason: smoking urge Stop: 02/20/20 01:40 Ethinyl Estradio/Etonogestrel ( Nuvaring)~Non- Formulary Patient's Own Med 1 ea PV UD [facility] Stop: 01/21/20 23:59 Thiamine HCl (Vitamin B-1) [facility] Stop: 02/19/20 08:59 Last Admin: 01/21/20 08:41 Dose: 100 mg Documented by: Topiramate (Topamax) [facility] Stop: 02/20/20 08:59 Last Admin: 01/21/20 08:41 Dose: 50 mg Documented by:
--- NOTE | 2020-01-21 16:15 | Hospitalist Progress Note ---
Date of Service January 21, 2020 Assessment & Plan (1) Seizure: Witnessed tonic clonic seizure by father Mostly related to alcohol withdrawal seizure CT head showed no acute intracranial abnormality Received Ativan IV in the ER EEG showed normal awake and drowsy EEG. There is no evidence of focal slowing or epileptiform activity. Neuro on board Case discussed with neuro that recommended to restart on Topamax 50 daily x 1 week and then 50 BID Continue Ativan prn for seizure Seizure precaution Alcohol abuse Alcohol Withdrawal Recently [facility] Alcohol level on admission less than 3 Hx of seizure related to alcohol withdrawn Continue Gabapentin/Librium/ Ativan alcohol withdrawn protocol Continue monitor closely for signs of withdrawn and DT Continue Folic acid and Thiamine Counseling on alcohol cessation Pt would like to sign AMA but father called and does not want us to discharge her Discussed for possible to go back for inpatient alcohol rehab, she refused to go back to inpatient alcohol rehab Electrolytes imbalance K 3.5 and Mg 1.7 today Mg replaced today Will give K supplement 20mg x1 today Continue monitor Electrolytes Abnormal UA UA positive for Leukocytes and bacteria Denies any urinary symptoms Urine cx grew more than 3 organisms (contamination) Tachycardia Mostly related to alcohol withdrawn Continue monitor Tobacco abuse Counseling on tobacco cessation Continue Nicotine patch Depression Anxiety Psych on board Denies any suicidal thought Pt said that after taking her psych med, she felt drowsy Continue Fluoxetine 60mg daily and Aripiprazole Continue Vistaril for anxiety attack Pt threatened to sign AMA but Father called to not let her sign AMA Psych on board and stated that she does not meet criteria for inpatient psych treatment As per Psych "If patient again requests AMA discharge, her capacity for medical decision making should be assessed at the time she is requesting to leave " Please see full psych note if pt decides to sign AMA to guide to make the decision Code status Full code Disposition Plan to discharge tomorrow if medically stable Refused to go to inpatient alcohol rehab Please call the physician to assess the pt if decides to go AMA Admission and Anticipated Discharge Date Admission Date: January 19, 2020 Subjective Pt was seen and examined. Sitting in bed with no distress with one to one observe. Pt said that she would like to go home today I explained to her that it is not safe for her to be discharged today due to increase risk of DT/Alcohol withdrawal seizure She said that mostly she is going to drink alcohol again once discharge I explained to her that she is harming herself by continuing to drink that can lead to Pt does not want me to call her dad to provide him with any update about her Denies any chest pain, palpitation, dizziness, fever and SOB Physical Exam Physical Exam: General- No acute distress Head- atraumatic Eyes- PERRL, EOMI, +nystagmus ENT- oropharynx clear Neck- supple, no JVD Lungs- clear to auscultation Heart-+tachycardia, no murmur Abdomen- normal bowel sounds, soft, nontender Extremities- no calf tenderness Neuro- alert, oriented x 3; PERRL, EOMI; no facial palsy; no dysarthria, +mild tremor Skin- warm & dry Results & Data Results & Data ([facility]) Vital Signs (Past 12 Hours) Vital Signs Temp Pulse Pulse Resp BP BP Pulse Ox 01/21/20 15:05 36.5 C 110 H 16 125/88 96 01/21/20 11:00 36.5 C 109 H 16 125/88 98 01/21/20 08:18 36.7 C 115 H 20 130/91 146/99 H 96 01/21/20 07:33 100 H 01/21/20 04:17 36.7 C 87 18 119/79 98
[2020-01-22] MEDS: GABAPENTIN 600 MG TAB PO SCH (05:10)
--- NOTE | 2020-01-22 05:11 | Communication Note ---
Date of Service: January 22, 2020 Overnight issues : Made aware of patient intent to leave AGAINST MEDICAL ADVICE again last night. Although not currently with suicidal ideation, patient expressed propensity for self-harm if she gets too drunk at home upon inquiry by Psych liaison (see note). Patient agreeable to stay overnight until evaluated by AM provider. Patient will need psychiatric clearance prior to discharge in light of potential suicidality. Will relay to AM provider.
[2020-01-22] MEDS: ARIPiprazole 5 MG TAB PO SCH (07:51)
[2020-01-22] MEDS: TOPIRAMATE 50 MG TAB PO SCH (07:51)
[2020-01-22] MEDS: FOLIC ACID 1 MG TAB PO SCH (07:51)
[2020-01-22] MEDS: THIAMINE HCL 100 MG TAB PO SCH (07:52)
[2020-01-22] MEDS: NICOTINE 14 MG/24 HR PATCH TD SCH (07:52)
[2020-01-22] MEDS: FLUOXETINE HCL 20 MG CAP PO SCH (07:52)
[2020-01-22] MEDS: MAGNESIUM CHLORIDE 64MG DELAYED REL TAB PO SCH (07:52)
[2020-01-22] MEDS: NALTREXONE HCL 50 MG TAB PO SCH (07:53)
--- NOTE | 2020-01-22 12:13 | Discharge Summary ---
Date of Service January 22, 2020 Admission HPI Per Admitting Provider 29-year-old female with past medical history significant for alcoholism, anxiety, mood disorder, tobacco abuse, seizure thought to be alcohol withdrawn, multiple admissions for alcoholism was brought to the ER by EMS after father witness seizure episode this morning. Patient was recently discharged in November to alcohol rehab treatment where she spent 4 weeks. She recently discharged from the alcohol rehab facility on first week of December. Father said 3 days later she started to drink alcohol again. Father said she has been drinking 24 ounces can [employer] hard 15% alcohol in it. She usually drinks about 4 cans/day. Patient said that she drink alcohol because she feels depressed. This morning she had an episode of seizure that was witnessed by father that seems to last a few minutes. Father said she fell on the floor and was having jerking movement. She said that after the episode she was breathing very heavy. She said that her lips were bleeding because she bite her lips during the seizure. Father said in the past she had alcohol withdrawal seizure. Patient said her last drink was last night. Alcohol level in the ER is less than 3. She denies any hallucination, psychosis, chest pain, palpitation, dizziness, and shortness of breath. She denies any recent traveling or any contact with sick person or any exposure to anyone positive with COVID-19. Admission Exam Per Admitting Provider General- No acute distress Head- atraumatic Eyes- PERRL, EOMI, +nystagmus ENT- oropharynx clear Neck- supple, no JVD Lungs- clear to auscultation Heart-+tachycardia, no murmur Abdomen- normal bowel sounds, soft, nontender Extremities- no calf tenderness Neuro- alert, oriented x 3; PERRL, EOMI; no facial palsy; no dysarthria, +tremor Skin- warm & dry Principal Diagnosis Seizure: Witnessed tonic clonic seizure by father Mostly related to alcohol withdrawal seizure Alcohol abuse Alcohol Withdrawal Electrolytes imbalance Abnormal UA Tachycardia Tobacco abuse Depression Anxiety Discharge Exam Physical Exam Gen-AAO x 3, NAD, Afebrile Head-NCAT, EOMI, PERRLA, Anicteric Sclera, No Posterior Pharyngeal Erythema Neck-Supple, No JVD, No Thyromegaly, No Masses, No LAD, No Bruits Lungs-Clear to Auscultation Bilaterally, No Rales, No Rhonchi, No Wheezing, No Crepitus Chest-No S4, +S1, +S2, No S3, No Murmurs, No Rubs, No Gallops, No Ectopy Abdomen-Soft, Bowel Sounds Present, Non Tender, Non Distended, No Hepatomegaly, No Splenomegaly, No Palpable Masses, No Rebound, No Rigidity, No Guarding Musculoskeletal-Full Range of Motion Bilaterally, No CVAT Extremities-No Cyanosis, No Clubbing, No Edema Nuero-Cranial Nerves II-XII grossly intact, Motor WNL, DTRs WNL, Strength WNL, Non Focal Psych-Normal Mood Discharge Data Allergies Allergy/AdvReac Type Severity Reaction Status Date / Time No Known Allergies Allergy Unverified 01/19/20 10:41 Consultations 01/19/20 10:37 ED Decision to Admit Stat 01/19/20 14:52 Consult Neurology Routine Consult Psychiatry Routine Ordered Studies 01/19/20 09:12 CT head/brain wo con Stat Current Diagnoses Alcohol abuse, uncomplicated (01/19/20) Alcohol dependence with withdrawal delirium (01/19/20) Unspecified convulsions (01/19/20) Allergies No Known Allergies Allergy (Unverified 01/19/20 10:41) Height/Weight/Isolation Height 5 ft 2 in Weight 62 kg Chemistry 01/21/20 06:21 Sodium 140 Potassium 3.5 D Chloride 112 H Carbon Dioxide 22 Anion Gap 6.0 BUN 3 L Creatinine 0.73 Glucose 104 H Hospital Course (1) Seizure: Witnessed tonic clonic seizure by father Mostly related to alcohol withdrawal seizure CT head showed no acute intracranial abnormality Received Ativan IV in the ER EEG showed normal awake and drowsy EEG. There is no evidence of focal slowing or epileptiform activity. Neuro on board Case discussed with neuro that recommended to restart on Topamax 50 daily x 1 week and then 50 BID Seizure precaution Alcohol abuse Alcohol Withdrawal Recently [facility] Alcohol level on admission less than 3 Hx of seizure related to alcohol withdrawn Was on Gabapentin/Librium/ Ativan alcohol withdrawn protocol Continue Folic acid and Thiamine Counseling on alcohol cessation Psych to have f/u in 1 week [facility] Electrolytes imbalance K and Mag replaced Abnormal UA (contamination) Tachycardia Mostly related to alcohol withdrawn Tobacco abuse Counseling on tobacco cessation Continue Nicotine patch Depression Anxiety Psych on board Denies any suicidal thought Pt said that after taking her psych med, she felt drowsy Continue Fluoxetine 60mg daily and Aripiprazole Psych on board and stated that she does not meet criteria for inpatient psych treatment Cleared for DC per Psych Code status Full code Disposition Discharge today [facility] next week Total Time Total Time Spent Total Time Spent (In Minutes): 45 mins Total Time Includes: Examination of the Patient, Discharge Planning, Medication Reconciliation and Communication With Other Providers Discharge Plan Discharge Items Patient Disposition: Home - Self-Care Reason For Visit: seizure/alcohol abuse Discharge Diagnosis: Seizure: Witnessed tonic clonic seizure by father Mostly related to alcohol withdrawal seizure Alcohol abuse Alcohol Withdrawal Electrolytes imbalance Abnormal UA Tachycardia Tobacco abuse Depression Anxiety Condition on Discharge: Good Activity: Resume your previous activity Lifting: None and Gradually increase as tolerated Bathing: No limitations Sexual Activity: When tolerated Exercise/Sports: Gradually increase as tolerated Driving/Machine Use: No limitations Weightbearing: Full weightbearing Non-emergency contact: Primary Care Provider and Psychiatrist Call non-emergency contact if: you have any medication questions Follow-up/Referrals: Stephenie Sandoval MD [Primary Care Provider] - 01/27/20 8:20 am Diet: Regular Addtl Attending Provider Instructions: None Pending Studies at Discharge: No Stand-Alone Forms: My [facility] [employer], Smoking Cessation Medications and DC Order Prescriptions: New topiramate 50 mg Tablet 50 mg PO QAM Qty: 60 RF: 0 Continued fluoxetine [Prozac] 20 mg capsule 60 mg PO QAM RF: 0 aripiprazole [Abilify] 5 mg Tablet 5 mg PO QAM RF: 0 naltrexone 50 mg tablet 50 mg PO QAM RF: 0 No Action folic acid 1 mg Tablet 1 mg PO QAM 30 Days Qty: 30 RF: 3 etonogestrel-ethinyl estradiol [NuvaRing] 0.12-0.015 mg/24 hr ring 1 vag ring VAGINAL DIRECTED RF: 0 magnesium chloride [Mag 64] 64 mg tablet,delayed release (DR/EC) 64 mg PO BID RF: 0 benzonatate [Tessalon Perles] 100 mg capsule 100 mg PO TID PRN (Reason: Cough) RF: 0 Discharge Orders: Discharge Order (Routine); Ordered 01/22/20 Ordered By: Braulio Mcadams Admission Data Admit Date/Time: 01/19/20 12:30 Attending Provider: Braulio Mcadams Admit Provider: Kaleigh Mcfarland Primary Care Provider: Stephenie Sandoval Other Providers: Kaleigh Mcfarland ; Michael Slade ; Stevie Laboy
--- NOTE | 2020-01-22 12:32 | Psychiatric Progress Note ---
Date of Service January 22, 2020 Impression / Recommendations Impression Dr. Felicitas Madden has been directly involved in review and discussion of the patient's case and has participated in medical decision making regarding treatment recommendations. RECOMMENDATIONS: 01/20 - Care coordinated with primary team, patient reportedly to be cleared from a medical standpoint this afternoon. Pt is now agreeable with a referral to [facility] in [place] for therapy. Psychiatric nurse liaison secured appointment on 01/27/2020 at 1:00pm. Will also update patient's intensive care specialist to allow for any additional coordination after patient is discharged home. Pt continues to decline recommendation for inpatient D&A rehab. She is planning to follow-up with her PCP for ongoing medication management. - While concerns regarding patient's history of poor judgment and impulsivity have been verbalized, there is no indication that these behaviors are directly related to a primary psychiatric condition - and they are likely best explained by her history of substance abuse. Pt is at increased risk of harm to self or others when compared to the general population, but more likely related to her continued substance abuse as opposed to a primary psychiatric condition. As patient is refusing inpatient D&A rehab, recommendation is for outpatient therapy, continued support from family and professionals, and willingness to support patient when she is ready to pursue this level of treatment in the future. In [place], patient's are not legally able to be committed involuntarily for substance abuse treatment, and must make this decision of their own accord. - There is no criteria at this time for involuntary psychiatric treatment, and patient does not feel inpatient psychiatric treatment is necessary. She denies SI, reports positive mood, is able to verbalize a safety plan, and is able to contract for safety outside of the hospital setting. No recommendation at this time for a 302 warrant or involuntary commitment. Agree with discharge home when medically cleared, and encourage patient to follow-up with [facility] for counseling. Risk Factors Assessment Do You Have Access To A Gun?: No Interval History Identifying Information 29-year-old female admitted medically on 01/19/2020 after presenting to the ED status post seizure. It is reported the patient was recently discharged from inpatient drug and alcohol rehabilitation within the last 3 to 4 weeks; however, began drinking alcohol again 2 to 3 days after she returned home. It is reported that father witnessed a seizure while at home, and patient was brought to the ED by EMS. Psychiatric consultation was requested to evaluate the patient for "depression", follow-up visit completed today as patient was rather disoriented during initial encounter. Chief Complaint "Um, I'm doing pretty well actually. How are you?" Review of Systems Notes Constitutional: denied HEENT: reports ongoing lip pain resulting from biting her lip during seizure Cardiovascular: denied Respiratory: denied Gastrointestinal: denied Neurological: denied Psychiatric: denies symptoms other than stated above Total of at least 10 systems reviewed, pertinent positives as above and in HPI. Subjective Subjective Patient's case was reviewed and discussed with supervising psychiatrist and psychiatric nurse liaison. Received updates from last evening regarding patient's request to leave AMA - it appears she ultimately agreed to stay through the day today. It was requested by primary team that psychiatry re- evaluate the patient prior to discharge. This provider met with the patient for follow-up after receiving notice that patient would likely be medically cleared this afternoon. Pt states she is "feeling pretty good actually." She states that aside from lip pain related to biting her lip during her seizure, she does not have any other physical complaints. Pt reports her mood is "pretty positive" today, and denies any acute concerns related to depressive or anxiety symptoms. Pt was asked what her preferred next step would be after discharge - her request being "to go home today. I'm scheduled to work tomorrow. I like my job and I feel up to it." Pt was again offered referral for inpatient D&A rehabilitation, and was reminded this is our primary recommendation. She again declined. Pt is, however, reporting willingness for outpatient therapy at [facility]. She states "after I get back to [place], I'll go to their office and set up an appointment." This provider offered for us to make these calls and schedule an appointment now - which she fortunately accepted. Aside from outpatient therapy and follow-up with her PCP, patient does not feel she requires any additional services at this time. Pt denied significant hopelessness or SI when asked directly by this provider. While she does admit to occasional thoughts of "what's the point?" she states this is generally within the context of her alcohol use, and "once I'm sober again, I feel pretty happy and those thoughts go away." Pt denies any acute suicidal ideation recently, and denies any prior attempts or acts of furtherance. She denies a specific plan or means to end her life. Pt is able to verbalize a safety plan should these thoughts occur, which includes talking with her father, calling friends, petting her cat, taking a nap, or finding other activities to distract herself. Pt is future oriented in conversation, reporting motivation to get home in order to see her dad, see friends, and ultimately get back to work. Pt is able to verbalize understanding of crisis resources in the area. Pt denies feeling as though inpatient psychiatric treatment is necessary at this time. She denies other needs or concerns from our service at this time and is hopeful for discharge this afternoon. Physical Exam Psychiatric Orientation: alert, oriented x 3 and cooperative Apperance: appropriately dressed (for setting - wearing hospital gown with pants underneath), appropriately groomed and appeared stated age Eye Contact: good eye contact Motor Behavior: no abnormal motor movements (observed while sitting cross-legged on edge of bed); n tremor Speech: normal rate/rhythm/volume of speech Affect: euthymic affect and mood congruent with affect Mood: no depressed mood ("actually pretty good") and no anxious mood Thought Process: goal directed thought process, clear/coherent thought process and thought association intact Thought Content: reality based without delusions; no hopelessness and no wor thlessness Suicidal Thoughts: denies suicidal thoughts, denies suicidal plan and denies suicidal intent Homicidal Thoughts: denies homicidal thoughts Hallucinations: no auditory hallucinations and no visual hallucinations Cognition: attention grossly intact and language grossly intact Insight: + limited insight (with regard to concerns related to her alcohol abuse) Judgement: + limited judgement Vital Signs (Past 24 Hours) Last Vital Signs Temp 36.7 C 01/22/20 06:00 Pulse 109 H 01/22/20 06:00 Resp 18 01/22/20 06:00 BP 119/76 01/22/20 06:00 Pulse Ox 97 01/22/20 06:00 Results & Data (U) Current Inpatient Medications Current Inpatient Medications: Current Inpatient Medications Aripiprazole (Abilify) 5 mg PO QAM [facility]USS Stop: 02/19/20 08:59 Last Admin: 01/22/20 07:51 Dose: 5 mg Documented by: Benzonatate (Tessalon Perle) 100 mg PO TID PRN PRN Reason: Cough Stop: 02/18/20 14:51 Chlordiazepoxide HCl (Librium) 10 mg PO Q12H [facility] Stop: 02/18/20 15:59 Last Admin: 01/22/20 05:10 Dose: 10 mg Documented by: Fluoxetine HCl (Prozac) 60 mg PO QAM [facility] Stop: 02/19/20 08:59 Last Admin: 01/22/20 07:52 Dose: 60 mg Documented by: Folic Acid (Folvite) 1 mg PO QAM [facility] Stop: 02/19/20 08:59 Last Admin: 01/22/20 07:51 Dose: 1 mg Documented by: Gabapentin (Neurontin) 600 mg PO Q24H [facility] Stop: 01/23/20 06:01 Hydroxyzine HCl (Vistaril) 10 mg PO Q6H PRN PRN Reason: Anxiety Stop: 02/18/20 15:00 Lorazepam (Ativan) 1 mg in 2 mls @ 0.5 mls/min IV UD PRN PRN Reason: seizure only Stop: 02/18/20 14:51 Last Admin: 01/20/20 03:21 Dose: 0.5 mls/min Documented by: Lorazepam (Ativan) 1 mg in 2 mls @ 2 mls/min IV UD PRN; Protocol PRN Reason: EtOH Withdrawl AWSS Score 6,7 Stop: 02/18/20 20:02 Last Admin: 01/21/20 08:53 Dose: 2 mls/min Documented by: Lorazepam (Ativan) 2 mg in 4 mls @ 4 mls/min IV UD PRN; Protocol PRN Reason: EtOH Withdrawl AWSS Score 8,9 Stop: 02/18/20 20:02 Last Admin: 01/20/20 23:12 Dose: 4 mls/min Documented by: Lorazepam (Ativan) 3 mg in 6 mls @ 4 mls/min IV ONCE PRN; Protocol PRN Reason: EtOH Withdrawl AWSS Score >=10 Stop: 02/18/20 20:02 Magnesium Chloride (Slow-Mag) 64 mg PO BID [facility] Stop: 02/18/20 20:59 Last Admin: 01/22/20 07:52 Dose: 64 mg Documented by: Miscellaneous (Remove Nicoderm Patch) 1 ea N/A DAILY@[id number] [facility] Stop: 02/19/20 08:58 Last Admin: 01/22/20 07:55 Dose: 1 ea Documented by: Naltrexone HCl (Naltrexone Hcl) 50 mg PO QAM [facility] Stop: 02/19/20 08:59 Last Admin: 01/22/20 07:53 Dose: 50 mg Documented by: Nicotine (Nicoderm Cq) 14 mg TD QAM [facility] Stop: 02/18/20 18:44 Last Admin: 01/22/20 07:52 Dose: 14 mg Documented by: Nicotine Polacrilex (Nicorette 2mg) 1 piece MT Q1H PRN PRN Reason: smoking urge Stop: 02/20/20 01:40 Thiamine HCl (Vitamin B-1) 100 mg PO QAM [facility] Stop: 02/19/20 08:59 Last Admin: 01/22/20 07:52 Dose: 100 mg Documented by: Topiramate (Topamax) 50 mg PO QAM [facility] Stop: 02/20/20 08:59 Last Admin: 01/22/20 07:51 Dose: 50 mg Documented by: Mental Health & Subst Abuse Tx Therapist Name of Therapist: Myrio Marisel Melo Therapist's Date of Therapist Appointment: 01/27/20 Time of Therapist Appointment: 01:00pm Therapist Release of Information: Obtained, Reviewed and Signed Air Carrier Maintenance Inspector Name of Air Carrier Maintenance Inspector: Mary Tapia - Behavioral Health Air Carrier Maintenance Inspector Phone Number for Air Carrier Maintenance Inspector: [phone] Case Management Appointment Comment: Please call for an appiontment Post Discharge Appointments Specialist Name of Specialist: Shonna Singleton - [employer] @ [facility] Phone Number for Specialist: [phone] Specialty Appointment Comment: Will follow-up with you after discharge
[2020-01-23] MEDS ORDERED: GABAPENTIN 600 MG TAB PO SCH (06:00)
== END 2020-01-22 15:42 | disposition home or self-care (01) | DRG 101 ==
LOC: ED 08:44 → 2W 12:30 → SUATTDRO 12:30 → 2W 13:54

== ENCOUNTER 2020-04-20 09:28 | Inpatient (IN) ==
[2020-04-20] MEDS ORDERED: SODIUM CHLORIDE 0.9% 1000ML 1,000 ML IV ONE (09:41)
--- NOTE | 2020-04-20 09:45 | Emergency Department Note ---
History of Present Illness General Chief complaint: Seizure Stated complaint: SEIZURE LAST NIGHT,NOT EATING Time Seen by Provider: 04/20/20 09:35 History of Present Illness Provider complaint: Seizure Onset (ago): hour(s) 8 Location: head Maximum Pain Intensity: 0 Current Pain Intensity: 0 30-year-old female presents emergency department status post seizure. Patient states she is an alcoholic and usually drinks " at least 4 8% tall boy beers" per day but states she has not drank in the last 2 days because she got tired of drinking. She states that she had a seizure at approximately 1 AM. She states she is unsure how long it lasted for. She states her boyfriend witnessed that. She states she did not come into the emergency department at that time because she was not sure how serious it was. Patient denies any chance of being . She denies any fever. She denies any loss of taste or smell. Home Medications Home Medications Medication Instructions Recorded Confirmed Type aripiprazole [Abilify] 5 mg PO QAM 09/25/19 04/20/20 History etonogestrel-ethinyl estradiol 1 vag ring VAGINAL DIRECTED 11/19/19 04/20/20 History [NuvaRing] magnesium chloride [Mag 64] 64 mg PO BID 11/19/19 04/20/20 History naltrexone 50 mg PO QAM 11/19/19 04/20/20 History thiamine HCl (vitamin B1) [Vitamin 100 mg PO QAM #30 tab 01/22/20 04/20/20 Rx B-1] topiramate 50 mg PO QAM #60 tab 01/22/20 04/20/20 Rx omeprazole magnesium [Prilosec OTC] 20 mg PO QAM 04/20/20 04/20/20 History venlafaxine 37.5 mg PO QAM 04/20/20 04/20/20 History Allergies Allergy/AdvReac Type Severity Reaction Status Date / Time No Known Allergies Allergy Unverified 04/20/20 10:12 Past Med/Surg History Medical History Admitted to intensive care unit Alcohol withdrawal Alcohol withdrawal seizure Alcoholism Depression Elevated LFTs Empyema of right pleural space Gram-positive bacteremia Hypophosphatemia Pulmonary abscess Sepsis (Inactive) Severe sepsis Thrombocytopenia (Inactive) Tobacco use Surgical History (Updated 04/20/20 @ 12:56 by Christine Jones PA-C) Status post lung surgery (10/02/19) Evacuation of Empyema with extensive decortication Dr. Jose 10/02/19 Family History Mother Diabetes Social History (Updated 04/20/20 @ 12:57 by Christine Jones PA-C) Preferred Language: Armenian Communication Ability: Effective Visual Impairment: No Limitations Hearing Ability: Normal Fingerprint Expert Required: No Beliefs That Will Affect Care: None marital status: Single marital status details: Boyfriend Current Living Situation: Significant Other Other Information That Helps Us Care for You: No Feels Safe at Home: Yes Safety Concerns: Feels Safe At This Time Smoking Status: Heavy tobacco smoker Tobacco Type: cigarettes ; Cigarettes Per Day: 10 ; Do You Dip or Chew Tobacco: No ; Second Hand Exposure: No ; Tobacco Cessation Education Requested by Patient: No Hx Alcohol Use: Yes Alcohol type: hard liquor Alcohol Intake Frequency Comment: 3-4 8% - daily Hard lemonade Hx Substance Use: No Review of Systems A total of 10 systems reviewed and were otherwise negative Physical Exam Vital Signs Vital Signs - 24 hr 04/20/20 09:31 04/20/20 10:57 04/20/20 11:04 Temperature 36.5 C Temperature Source Oral Pulse Rate 100 H Pulse Rate [Left] 94 H Pulse Rhythm [Left] Regular Pulse Strength [Left] Normal Respiratory Rate 16 18 Blood Pressure 94/68 L Blood Pressure [Right Arm] 114/86 Blood Pressure Mean 76 Blood Pressure Mean [Right Arm] 95 Blood Pressure Position [Right Arm] Lying Pulse Oximetry 98 98 98 Oxygen Delivery Method Room Air Room Air Room Air Sepsis Recent Fever Within 48 Hours No Sepsis New/Unexplained Change in Mental Status No Sepsis Action Taken by Nursing No Action Required Physical Exam GENERAL: She is oriented to person, place, and time. She appears well-developed and well-nourished. She does not appear distressed. HENT: Exam performed. -Head: Normocephalic and atraumatic. -Right Ear: External ear normal. No mastoid tenderness. -Left Ear: External ear normal. No mastoid tenderness. -Mouth/Throat: The oropharynx is clear and moist. No trismus in the jaw. No dental abscesses or uvula swelling. No oropharyngeal exudate or tonsillar abscesses. EYES: Conjunctivae and EOM are normal. Pupils are equal, round, and reactive to light. Right eye exhibits no discharge. Left eye exhibits no discharge. No scleral icterus. NECK: Normal range of motion. Neck supple. No JVD present. No spinous process tenderness present. No carotid bruit present. No rigidity. No tracheal deviation and normal range of motion present. No Brudzinski's sign and no Kernig's sign noted. CV: Normal rate, regular rhythm, normal heart sounds and intact distal pulses. There is no peripheral edema. Palpable radial pulses bue. PULM/CHEST: Effort normal and breath sounds normal. No respiratory distress. No stridor. She has no wheezes. She has no rales. -Chest Wall: She exhibits no tenderness. ABD: The abdomen is soft. Bowel sounds are normal. She has no distension. No mass is present. There is no tenderness. There is no rebound, no guarding, no Quintero's sign and no tenderness at McBurney's point. Rovsig negative MUSC/SKEL: Normal range of motion. There is no peripheral edema, tenderness or deformity. LYMPH: No cervical adenopathy. NEURO: She is alert and oriented to person, place, and time. She has normal strength. No cranial nerve deficit or sensory deficit. Coordination and gait normal. GCS eye subscore is 4. GCS verbal subscore is 5. GCS motor subscore is 6. Cerebellar tests wnl. SKIN: Skin is warm and dry. She is not diaphoretic. PSYCH: She has a normal mood and affect. Behavior is normal. Judgment and thought content normal. Course Course 09: The patient was evaluated in room C11. A complete history and physical exam was performed. Patient states she has medications for her alcoholism that she takes when she thinks is necessary and sees a therapist for alcoholism. She states she does not want any treatment or help for her drinking problem. She went to be worked up for her seizure. It is thought that her seizure was most likely due to alcohol withdrawal. Patient displays no active signs of DTs at this time. We will continue to monitor patient. 1245: Vital signs stable. Repeat physical exam within normal limits. Patient not tachycardic and displaying no signs of DTs. Imaging within normal limits. Labs show a potassium of 2.2. Potassium replacement was started in the emergency and [facility] Rodriguez Administered Medications Folic Acid (Folvite) 1 mg PO QAM RUSS Stop: 05/20/20 14:59 Last Admin: 04/20/20 16:24 Dose: 1 mg Documented by: [id number] Potassium Chloride/Sodium Chloride (Normal Saline W/20 Meq Kcl) 20 meq in 1,000 mls @ 125 mls/hr IV .Q8H RUSS Stop: 05/20/20 14:36 Last Admin: 04/20/20 16:24 Dose: 125 mls/hr Documented by: [id number] Thiamine HCl (Vitamin B-1) 100 mg PO QAM RUSS Stop: 05/20/20 14:59 Last Admin: 04/20/20 16:25 Dose: 100 mg Documented by: [id number] Discontinued Medications Gabapentin (Neurontin) 1,200 mg PO TODAY@1500 RUSS Stop: 04/20/20 15:01 Last Admin: 04/20/20 16:24 Dose: 1,200 mg Documented by: [id number] Sodium Chloride (Nss 1000ml) 1,000 mls @ 999 mls/hr IV .Q1H1M ONE Stop: 04/20/20 10:41 Last Infusion: 04/20/20 12:03 Dose: 0 mls/hr Documented by: [id number] Admin: 04/20/20 11:01 Dose: 999 mls/hr Documented by: [id number] Potassium Chloride (K Florentin / Wtr) 10 meq in 100 mls @ 100 mls/hr IV Q1H RUSS Stop: 04/20/20 13:59 Last Infusion: 04/20/20 15:10 Dose: 0 mls/hr Documented by: [id number] Admin: 04/20/20 14:06 Dose: 100 mls/hr Documented by: [id number] Infusion: 04/20/20 13:32 Dose: 100 mls/hr Documented by: [id number] Admin: 04/20/20 12:32 Dose: 100 mls/hr Documented by: [id number] Magnesium Sulfate/Dextrose (Magnesium Sulfate / D5w) 1 gm in 100 mls @ 100 mls/hr IV NOW STA Stop: 04/20/20 13:21 Last Infusion: 04/20/20 15:10 Dose: 0 mls/hr Documented by: [id number] Admin: 04/20/20 14:06 Dose: 100 mls/hr Documented by: [id number] Potassium Chloride (Klor-Con M10) 40 meq PO NOW STA Stop: 04/20/20 11:55 Last Admin: 04/20/20 12:32 Dose: 40 meq Documented by: [id number] Potassium Chloride (Klor-Con M20) 40 meq PO NOW STA Stop: 04/20/20 16:15 Last Admin: 04/20/20 17:04 Dose: 40 meq Documented by: [id number] Medical Decision Making Laboratory Data Result diagrams: 04/20/20 10:30 04/20/20 10:55 Lab Results 04/20/20 04/20/20 04/20/20 Range/Units 10:14 10:30 10:30 WBC (4.8-10.8) K/uL RBC (4.2-5.4) M/uL Hgb (12.0-16.0) g/dL Hct (37-47) % MCV (80-100) fL MCH (25-34) pg MCHC (32-36) g/dL RDW Std Deviation (36.4-46.3) fL RDW Coeff of Vinod (11.5-14.5) % Plt Count (130-400) K/uL MPV (7.4-10.4) fL Immature Gran % (Auto) % Neut % (Auto) % Lymph % (Auto) % Randall % (Auto) % Eos % (Auto) % Baso % (Auto) % Neut # (Auto) (1.4-6.5) K/uL Lymph # (Auto) (1.2-3.4) K/uL Randall # (Auto) (0.11-0.59) K/uL Eos # (Auto) (0-0.5) K/uL Baso # (Auto) (0-0.2) K/uL Immature Gran # (Auto) (0.00-0.02) K/uL Platelet Estimate (Normal) Macrocytosis Stomatocytes PT (9.0-12.0) Seconds INR (0.9-1.1) Sodium 131 L (136-145) mmol/L Potassium (3.5-5.1) mmol/L Chloride 94 L (98-107) mmol/L Carbon Dioxide 26 (21-32) mmol/L Anion Gap 11.0 (3-11) BUN 10 (7-18) mg/dl Creatinine 1.16 (0.6-1.2) mg/dl Est Cr Clr Drug Dosing 62.3 ml/min Est GFR ( Amer) 74.2 Est GFR (Non-Af Amer) 64.0 BUN/Creatinine Ratio 8.8 L (10-20) Glucose 88 (70-99) mg/dl POC Glucose 106 H (70-99) mg/dl Calcium 9.2 (8.5-10.1) mg/dl Phosphorus (2.5-4.9) mg/dl Magnesium (1.8-2.4) mg/dl Total Bilirubin 5.7 H (0.2-1) mg/dl Direct Bilirubin (0-0.2) mg/dl AST (15-37) U/L ALT 50 (12-78) U/L Alkaline Phosphatase 135 H (45-117) U/L Total Protein 7.9 (6.4-8.2) gm/dl Albumin 3.5 (3.4-5.0) gm/dl Lipase (73-393) U/L TSH (0.300-4.500) uIu/ml HCG, Qual Cancelled Hep Bs Antigen (Neg) Hepatitis C Antibody (Neg) 04/20/20 04/20/20 04/20/20 Range/Units 10:30 10:55 10:55 WBC 9.96 (4.8-10.8) K/uL RBC 3.99 L (4.2-5.4) M/uL Hgb 15.8 (12.0-16.0) g/dL Hct 44.1 (37-47) % MCV 110.5 H (80-100) fL MCH 39.6 H (25-34) pg MCHC 35.8 (32-36) g/dL RDW Std Deviation 54.7 H (36.4-46.3) fL RDW Coeff of Vinod 13.8 (11.5-14.5) % Plt Count 133 (130-400) K/uL MPV 12.1 H (7.4-10.4) fL Immature Gran % (Auto) 0.5 % Neut % (Auto) 84.1 % Lymph % (Auto) 9.5 % Randall % (Auto) 5.2 % Eos % (Auto) 0.6 % Baso % (Auto) 0.1 % Neut # (Auto) 8.37 H (1.4-6.5) K/uL Lymph # (Auto) 0.95 L (1.2-3.4) K/uL Randall # (Auto) 0.52 (0.11-0.59) K/uL Eos # (Auto) 0.06 (0-0.5) K/uL Baso # (Auto) 0.01 (0-0.2) K/uL Immature Gran # (Auto) 0.05 H (0.00-0.02) K/uL Platelet Estimate Normal (Normal) Macrocytosis Present Stomatocytes 1+ PT (9.0-12.0) Seconds INR (0.9-1.1) Sodium (136-145) mmol/L Potassium 2.2 L* (3.5-5.1) mmol/L Chloride (98-107) mmol/L Carbon Dioxide (21-32) mmol/L Anion Gap (3-11) BUN (7-18) mg/dl Creatinine (0.6-1.2) mg/dl Est Cr Clr Drug Dosing ml/min Est GFR ( Amer) Est GFR (Non-Af Amer) BUN/Creatinine Ratio (10-20) Glucose (70-99) mg/dl POC Glucose (70-99) mg/dl Calcium (8.5-10.1) mg/dl Phosphorus (2.5-4.9) mg/dl Magnesium 1.7 L (1.8-2.4) mg/dl Total Bilirubin (0.2-1) mg/dl Direct Bilirubin 3.0 H (0-0.2) mg/dl AST 140 H (15-37) U/L ALT (12-78) U/L Alkaline Phosphatase (45-117) U/L Total Protein (6.4-8.2) gm/dl Albumin (3.4-5.0) gm/dl Lipase 73 (73-393) U/L TSH 2.350 (0.300-4.500) uIu/ml HCG, Qual Hep Bs Antigen (Neg) Hepatitis C Antibody (Neg) 06/29/20 06/29/20 06/29/20 Range/Units 10:55 10:55 11:08 WBC (4.8-10.8) K/uL RBC (4.2-5.4) M/uL Hgb (12.0-16.0) g/dL Hct (37-47) % MCV (80-100) fL MCH (25-34) pg MCHC (32-36) g/dL RDW Std Deviation (36.4-46.3) fL RDW Coeff of Vinod (11.5-14.5) % Plt Count (130-400) K/uL MPV (7.4-10.4) fL Immature Gran % (Auto) % Neut % (Auto) % Lymph % (Auto) % Randall % (Auto) % Eos % (Auto) % Baso % (Auto) % Neut # (Auto) (1.4-6.5) K/uL Lymph # (Auto) (1.2-3.4) K/uL Randall # (Auto) (0.11-0.59) K/uL Eos # (Auto) (0-0.5) K/uL Baso # (Auto) (0-0.2) K/uL Immature Gran # (Auto) (0.00-0.02) K/uL Platelet Estimate (Normal) Macrocytosis Stomatocytes PT 12.4 H (9.0-12.0) Seconds INR 1.2 H (0.9-1.1) Sodium (136-145) mmol/L Potassium (3.5-5.1) mmol/L Chloride (98-107) mmol/L Carbon Dioxide (21-32) mmol/L Anion Gap (3-11) BUN (7-18) mg/dl Creatinine (0.6-1.2) mg/dl Est Cr Clr Drug Dosing ml/min Est GFR ( Amer) Est GFR (Non-Af Amer) BUN/Creatinine Ratio (10-20) Glucose (70-99) mg/dl POC Glucose (70-99) mg/dl Calcium (8.5-10.1) mg/dl Phosphorus 3.6 (2.5-4.9) mg/dl Magnesium (1.8-2.4) mg/dl Total Bilirubin (0.2-1) mg/dl Direct Bilirubin (0-0.2) mg/dl AST (15-37) U/L ALT (12-78) U/L Alkaline Phosphatase (45-117) U/L Total Protein (6.4-8.2) gm/dl Albumin (3.4-5.0) gm/dl Lipase (73-393) U/L TSH (0.300-4.500) uIu/ml HCG, Qual Negative Hep Bs Antigen (Neg) Hepatitis C Antibody (Neg) 04/20/20 Range/Units 11:08 WBC (4.8-10.8) K/uL RBC (4.2-5.4) M/uL Hgb (12.0-16.0) g/dL Hct (37-47) % MCV (80-100) fL MCH (25-34) pg MCHC (32-36) g/dL RDW Std Deviation (36.4-46.3) fL RDW Coeff of Vinod (11.5-14.5) % Plt Count (130-400) K/uL MPV (7.4-10.4) fL Immature Gran % (Auto) % Neut % (Auto) % Lymph % (Auto) % Randall % (Auto) % Eos % (Auto) % Baso % (Auto) % Neut # (Auto) (1.4-6.5) K/uL Lymph # (Auto) (1.2-3.4) K/uL Randall # (Auto) (0.11-0.59) K/uL Eos # (Auto) (0-0.5) K/uL Baso # (Auto) (0-0.2) K/uL Immature Gran # (Auto) (0.00-0.02) K/uL Platelet Estimate (Normal) Macrocytosis Stomatocytes PT (9.0-12.0) Seconds INR (0.9-1.1) Sodium (136-145) mmol/L Potassium (3.5-5.1) mmol/L Chloride (98-107) mmol/L Carbon Dioxide (21-32) mmol/L Anion Gap (3-11) BUN (7-18) mg/dl Creatinine (0.6-1.2) mg/dl Est Cr Clr Drug Dosing ml/min Est GFR ( Amer) Est GFR (Non-Af Amer) BUN/Creatinine Ratio (10-20) Glucose (70-99) mg/dl POC Glucose (70-99) mg/dl Calcium (8.5-10.1) mg/dl Phosphorus (2.5-4.9) mg/dl Magnesium (1.8-2.4) mg/dl Total Bilirubin (0.2-1) mg/dl Direct Bilirubin (0-0.2) mg/dl AST (15-37) U/L ALT (12-78) U/L Alkaline Phosphatase (45-117) U/L Total Protein (6.4-8.2) gm/dl Albumin (3.4-5.0) gm/dl Lipase (73-393) U/L TSH (0.300-4.500) uIu/ml HCG, Qual Hep Bs Antigen Neg (Neg) Hepatitis C Antibody Neg (Neg) Imaging Data Radiologist's Impression: CT head/brain wo con CT DOSE: HISTORY: Trauma. Mental status change. fall etohism seziure TECHNIQUE: Multiaxial CT images of the head were performed without the use of intravenous contrast. A dose lowering technique was utilized adhering to the principles of ALARA. Comparison: 01/19/2020 Findings: The paranasal sinuses and mastoid air cells are clear. The calvarium and skull base are intact. The ventricles and sulci are within normal limits. There is no mass, hematoma, midline shift, or acute infarct. Impression: No acute intracranial abnormality. ACT 112: Negative or not required by law. The above report was generated using voice recognition software. It may contain grammatical, syntax or spelling errors. Electronically signed by: Sánchez Freeman M.D. 04/20/2020 10:48 AM Dictated: 04/20/20 1042 Transcribed: 04/20/[address] OF THE CERVICAL SPINE WITHOUT CONTRAST CLINICAL HISTORY: Fall. COMPARISON STUDY: No previous studies for comparison. TECHNIQUE: Helical axial images of the cervical spine were obtained without IV contrast. Sagittal and coronal reconstructions were viewed. Automated exposure control was utilized for the study. A dose lowering technique was utilized adhering to the principles of ALARA. FINDINGS: Alignment of the cervical spine is anatomic. Vertebral body heights are maintained. No acute cervical spine fracture or subluxation is present. The re is no prevertebral edema. Facet joints are intact. IMPRESSION: No acute cervical spine fracture or subluxation. ACT 112: Negative or not required by law. Electronically signed by: Harrison Manning M.D. 04/20/2020 10:44 AM Dictated: 04/20/20 1042 Transcribed: 04/20/20 1042 [facility] Narrative 0930: The patient was evaluated in room C11. A complete history and physical exam was performed. Patient states she has medications for her alcoholism that she takes when she thinks is necessary and sees a therapist for alcoholism. She states she does not want any treatment or help for her drinking problem. She went to be worked up for her seizure. It is thought that her seizure was most likely due to alcohol withdrawal. Patient displays no active signs of DTs at this time. We will continue to monitor patient. 1245: Vital signs stable. Repeat physical exam within normal limits. Patient not tachycardic and displaying no signs of DTs. Imaging within normal limits. Labs show a potassium of 2.2. Potassium replacement was started in the emergency and will be admitted to the [facility] service Dr. Rodriguez Cardiac monitoring: An order was placed for continuous cardiac monitoring. The monitor shows a rate of 90 with sinus rhythm Impression & Plan Hypokalemia Discharge Plan Visit Data *Final* Discharge Date/Time: 04/20/20 14:25 Chief Complaint: Seizure Stated Complaint: SEIZURE LAST NIGHT,NOT EATING ED Provider: Jordy Yates Discharge Problem: Hypokalemia Patient Disposition: Admitted As Inpatient Discharge Instructions Interventions: ED Discharge Assessment Last Done: 04/20/20 14:25
--- NOTE | 2020-04-20 10:46 | CT Scan Report ---
CT OF THE CERVICAL SPINE WITHOUT CONTRAST CLINICAL HISTORY: Fall. COMPARISON STUDY: No previous studies for comparison. TECHNIQUE: Helical axial images of the cervical spine were obtained without IV contrast. Sagittal a nd coronal reconstructions were viewed. Automated exposure control was utilized for the study. A do se lowering technique was utilized adhering to the principles of ALARA. FINDINGS: Alignment of the cervical spine is anatomic. Vertebral body heights are maintained. No acut e cervical spine fracture or subluxation is present. There is no prevertebral edema. Facet joints are intact. IMPRESSION: No acute cervical spine fracture or subluxation. ACT 112: Negative or not required by law. Electronically signed by: Harrison Manning M.D. 04/20/2020 10:44 AM
--- NOTE | 2020-04-20 10:49 | CT Scan Report ---
CT head/brain wo con CT DOSE: HISTORY: Trauma. Mental status change. fall etohism seziure TECHNIQUE: Multiaxial CT images of the head were performed without the use of intravenous contrast. A dose lowering technique was utilized adhering to the principles of ALARA. Comparison: 01/19/2020 Findings: The paranasal sinuses and mastoid air cells are clear. The calvarium and skull base are int act. The ventricles and sulci are within normal limits. There is no mass, hematoma, midline shift, or acute infarct. Impression: No acute intracranial abnormality. ACT 112: Negative or not required by law. The above report was generated using voice recognition software. It may contain grammatical, syntax or spelling errors. Electronically signed by: Sánchez Freeman M.D. 04/20/2020 10:48 AM
[2020-04-20 11:11] LABS: Albumin Level 3.5 gm/dl (3.4-5.0); BUN Creatinine Ratio 8.8 (10-20); Bilirubin,Total 5.7 mg/dl (0.2-1); Calcium 9.2 mg/dl (8.5-10.1); Creatinine Clr Calc Pharmacy 62.3 ml/min; Est GFR (African American) 74.2; Total Protein 7.9 gm/dl (6.4-8.2)
[2020-04-20 11:33] LABS: Pregnancy Test, Serum Negative (Negative)
[2020-04-20 11:37] LABS: Magnesium 1.7 mg/dl (1.8-2.4); Potassium 2.2 mmol/L (3.5-5.1)
[2020-04-20] MEDS ORDERED: POTASSIUM CHLORIDE 10 MEQ TABCR PO STA (11:54)
[2020-04-20 12:19] LABS: Basophils # (auto) 0.01 K/uL (0-0.2); Basophils % (auto) 0.1 %; Eosinophils # (auto) 0.06 K/uL (0-0.5); Eosinophils % (auto) 0.6 %; Hematocrit (blood only) 44.1 % (37-47); Hemoglobin 15.8 g/dL (12.0-16.0); Immature Granulocytes # (auto) 0.05 K/uL (0.00-0.02); Immature Granulocytes % (auto) 0.5 %; Lymphocytes # (auto) 0.95 K/uL (1.2-3.4); Lymphocytes % (auto) 9.5 %; Macrocytosis Present; Mean Corpuscular Hemoglobin 39.6 pg (25-34); Mean Corpuscular Hgb Conc 35.8 g/dL (32-36); Mean Corpuscular Volume 110.5 fL (80-100); Mean Platelet Volume 12.1 fL (7.4-10.4); Monocytes # (auto) 0.52 K/uL (0.11-0.59); Monocytes % (auto) 5.2 %; Neutrophils # (auto) 8.37 K/uL (1.4-6.5); Neutrophils % (auto) 84.1 %; Platelet Count 133 K/uL (130-400); Platelet Estimate Normal (Normal); RDW Coefficient of Variation 13.8 % (11.5-14.5); RDW Standard Deviation 54.7 fL (36.4-46.3); Red Blood Count 3.99 M/uL (4.2-5.4); Stomatocytes 1+; White Blood Count 9.96 K/uL (4.8-10.8)
[2020-04-20] MEDS ORDERED: MAGNESIUM SULFATE / D5W 1 GM/100 ML BAG IV STA (12:22)
[2020-04-20] MEDS: POTASSIUM CHLORIDE / WTR 10 MEQ/100 ML PLCT IV SCH ×4 (12:32→19:13)
--- NOTE | 2020-04-20 12:56 | History & Physical Report ---
Date of Service April 20, 2020 Assessment & Plan (1) Alcohol withdrawal seizure: This is a 30 yr old F who has significant PMH of chronic ETOH abuse, hx of pulmonary empyema s/p VATS, depression with anx, hx of alcohol withdrawal seizures who presents ED 11/24 to complaint of seizure like activity around 1:00am this morning. Pt with reports of seizure like activity with b/l upper extremity involvement lasting 2 minutes, witnessed by boyfriend. No loss of bowel or bladder control. Weakness and fatigue followed event. Prior hx of ETOH withdrawal seizure activity - seen and eval by neuro 12/2019 EEG negative at that time. Started on Lamictal; however pt has not been taking. Admit to PCU AWSS ETOH withdrawal protocol Gapapentin taper, prn ativan seizure/aspiration precautions replace electrolytes repeat EEG - consider neuro re-eval restart lamictal 50mg daily (2) Electrolyte abnormality: K 2.2 Mag 1.7 received 40meq KCL PO along with Krider 10meq x 2 in ED repeat bmp at 1630 - replete as needed Mag sulfate 1g ordered in ED - repeat @ 1630 (3) Elevated LFTs: (4) Hyperbilirubinemia: Total bili 5.7, Direct Bili 3.0, AST 140, ALT 50, ALP 135 prior hx of hepatitis panel negative 2017 - repeat Lipase negative Obtain RUQ U/S - remain NPO until complete She has complaints of Nausea, but otherwise no jailene abdominal pain, exam is benign obtain PT/INR (5) Alcohol abuse: encourage ETOH cessation encouraged considerations for rehab consult case management low threshold for psych involvement Thiamine and folic acid supplementation daily (6) Depression with anxiety: continue effexor (7) DVT prophylaxis: SCD/TEDS disposition: admit to PCU Follow up: PCP Dr. Jailene Simmons upon discharge Pt was seen and examined in collaboration with Dr. Rodriguez, Please see addendum History of Present Illness Chief Complaint: Seizure like activity at 1 a.m. this morning. Primary Care Provider: Stephenie Simmons MD This is a 30 yr old F who has significant PMH of chronic ETOH abuse, hx of pulmonary empyema s/p VATS, depression with anx, hx of alcohol withdrawal seizures who presents ED 11/24 to complaint of seizure like activity around 1:00am this morning. She was lying in bed with boyfriend when she noticed an, "aura" seeing spots, "like someone flashed a camera at her," then she started having convulsions of her upper extremities. She does not recall events. Witnessed by her boyfriend. She did not lose bowel or bladder control. Generally felt weak and tired since event. Opted to not come in last evening, because, "I didn't think it was serious." After event she did try to walk to bathroom and lower extremities very weak and she fall. She did not hit or head and denies injury. Prior hx of seizure like activity with ETOH use. She has stopped many of her medications including Lamictal. She continues to abuse etoh, last drink 2 days ago which included 3-4 8% hard lemonades. She stopped drinking because, "i'm tired of being sick and tired." Feels that she may consider rehab but wants to think about it. Denies any S.I. or H.I. but general anhedonia. Denies recent f/c/s, dizziness, lightheaded,chest pain, sob, hemoptysis, hematemesis, abdominal pain, diarrhea, dysuria, increased urg/freq with urination. Overall poor appetite past 2-3 days, has no ate or drank much. +GERD and nausea. She states she is unable to keep things down. Allergies Allergy/AdvReac Type Severity Reaction Status Date / Time No Known Allergies Allergy Unverified 04/20/20 10:12 Home Medications Home Medications Medication Instructions Recorded Confirmed Type aripiprazole [Abilify] 5 mg PO QAM 09/25/19 04/20/20 History etonogestrel-ethinyl estradiol 1 vag ring VAGINAL DIRECTED 11/19/19 04/20/20 History [NuvaRing] magnesium chloride [Mag 64] 64 mg PO BID 11/19/19 04/20/20 History naltrexone 50 mg PO QAM 11/19/19 04/20/20 History thiamine HCl (vitamin B1) [Vitamin 100 mg PO QAM #30 tab 01/22/20 04/20/20 Rx B-1] topiramate 50 mg PO QAM #60 tab 01/22/20 04/20/20 Rx omeprazole magnesium [Prilosec OTC] 20 mg PO QAM 04/20/20 04/20/20 History venlafaxine 37.5 mg PO QAM 04/20/20 04/20/20 History Past Med/Surg History Medical History Admitted to intensive care unit Alcohol withdrawal Alcohol withdrawal seizure Alcoholism Depression Elevated LFTs Empyema of right pleural space Gram-positive bacteremia Hypophosphatemia Pulmonary abscess Sepsis (Inactive) Severe sepsis Thrombocytopenia (Inactive) Tobacco use Surgical History (Updated 04/20/20 @ 12:56 by Christine Jones PA-C) Status post lung surgery (10/02/19) Evacuation of Empyema with extensive decortication Dr. Jose 10/02/19 Family History Mother Diabetes Social History (Updated 04/20/20 @ 12:57 by Christine Joens PA-C) Preferred Language: Turkmen Communication Ability: Effective Visual Impairment: No Limitations Hearing Ability: Normal Supervisor [employer] Required: No Beliefs That Will Affect Care: None marital status: Single marital status details: Boyfriend Current Living Situation: Significant Other Other Information That Helps Us Care for You: No Feels Safe at Home: Yes Safety Concerns: Feels Safe At This Time Smoking Status: Heavy tobacco smoker Tobacco Type: cigarettes ; Cigarettes Per Day: 10 ; Do You Dip or Chew Tobacco: No ; Second Hand Exposure: No ; Tobacco Cessation Education Requested by Patient: No Hx Alcohol Use: Yes Alcohol type: hard liquor Alcohol Intake Frequency Comment: 3-4 8% - daily Hard lemonade Hx Substance Use: No Review of Systems Review of Systems: All systems reviewed & are unremarkable except as noted in HPI & below Physical Exam Physical Exam: Constitutional: WD/WN, vitals as above, NAD, sitting up in bed, pleasant, conversing easily Head: Normocephalic, Atraumatic Eyes: PERRL, conjunctivae normal, anicteric sclerae ENMT: external ear and nose normal, oropharynx normal Neck: trachea midline, no thyromegaly normal visual inspection Respiratory: normal respiratory effort, lungs clear to auscultation, no wheeze, rales, rhonchi. Normal insp/exp effort, no accessory muscle use Cardiovascular: RRR, no murmur, no edema Vessels: no JVD or carotid bruit Chest: normal inspection of chest Abdomen: normal bowel sounds, soft, nontender, no hepatosplenomegaly Musculoskeletal: no cyanosis or clubbing, extremities motor strength 5/5 Skin: no rashes, warm and dry normal turgor Neurologic: no tremors noted, no asterixis, PERRL, EOMI, accommodation nl, no face palsy, no dysarthria CN's II-XI intact bilaterally and moves all extremities Psychiatric: A+Ox3, euthymic affect Lymphatic: no cervical or axillary lymphadenopathy : deferred Results & Data Results & Data ([facility]) Vital Signs (Past 12 Hours) Vital Signs Temp Pulse Pulse Resp BP BP Pulse Ox 04/20/20 11:04 94 H 18 114/86 98 04/20/20 10:57 98 04/20/20 09:31 36.5 C 100 H 16 94/68 L 98 Laboratory Results Short CBC 04/20/20 Range/Units 10:30 WBC 9.96 (4.8-10.8) K/uL Hgb 15.8 (12.0-16.0) g/dL Hct 44.1 (37-47) % Plt Count 133 (130-400) K/uL BMP 04/20/20 04/20/20 10:30 10:55 Sodium 131 L Potassium 2.2 L* Chloride 94 L Carbon Dioxide 26 BUN 10 Creatinine 1.16 Glucose 88 Calcium 9.2 Liver Function 04/20/20 04/20/20 Range/Units 10:30 10:55 Total Bilirubin 5.7 H (0.2-1) mg/dl Direct Bilirubin 3.0 H (0-0.2) mg/dl AST 140 H (15-37) U/L ALT 50 (12-78) U/L Alkaline Phosphatase 135 H (45-117) U/L Albumin 3.5 (3.4-5.0) gm/dl Diagnostic Findings CT Head: IMPRESSION: No acute cervical spine fracture or subluxation. C Spine CT: FINDINGS: Alignment of the cervical spine is anatomic. Vertebral body heights are maintained. No acute cervical spine fracture or subluxation is present. There is no prevertebral edema. Facet joints are intact. Medications Administered Potassium Chloride (K Florentin / Wtr) 10 meq in 100 mls @ 100 mls/hr IV Q1H RUSS Stop: 04/20/20 13:59 Last Admin: 04/20/20 12:32 Dose: 100 mls/hr Documented by: [id number] Discontinued Medications Sodium Chloride (Nss 1000ml) 1,000 mls @ 999 mls/hr IV .Q1H1M ONE Stop: 04/20/20 10:41 Last Infusion: 04/20/20 12:03 Dose: 0 mls/hr Documented by: [id number] Admin: 04/20/20 11:01 Dose: 999 mls/hr Documented by: [id number] Potassium Chloride (Klor-Con M10) 40 meq PO NOW STA Stop: 04/20/20 11:55 Last Admin: 04/20/20 12:32 Dose: 40 meq Documented by: [id number] Code Status & VTE Plan Code Status Full Code VTE Prophylaxis Plan VTE Prophylaxis will be ordered: Yes Reason for no VTE drug order: Treatment not indicated Supervising Physician Co-Signing Physician Notes Attending addendum The patient was seen and examined in telemetry unit She is a 30-year-old female with chronic alcohol abuse with recurrent admission in the hospital and history of pulmonary empyema status post VATS depression was admitted with another alcohol withdrawal seizure She is weak and lethargic but denies any other significant symptoms Denies any tremor and/or palpitation No more seizure since last evening On examination Lying in bed comfortably Hemodynamically stable with heart rate around 99/min Chest-clear to auscultate bilaterally Heart-S1-S2, regular Abdomen-minimal tenderness in the epigastrium Extremities-negative for any edema Admission labs and imaging studies reviewed Besides alcohol withdrawal symptoms she does have electrolyte abnormality and alcoholic hepatitis Acute assessment and plan as outlined above by Markus Rodriguez (1) Alcohol withdrawal seizure Complication of substance-induced condition: with unspecified complication Qualified Code(s): F10.239 - Alcohol dependence with withdrawal, unspecified; R56.9 - Unspecified convulsions
[2020-04-20 12:58] LABS: Thyroid Stimulating Hormone 2.35 uIu/ml (0.300-4.500)
[2020-04-20 13:11] LABS: INR 1.2 (0.9-1.1); Prothrombin Time 12.4 Seconds (9.0-12.0)
--- NOTE | 2020-04-20 14:11 | Ultrasound Report ---
ULTRASOUND RIGHT UPPER QUADRANT ABDOMEN CLINICAL HISTORY: Elevated hepatic transaminases. COMPARISON STUDY: Abdominal CT dated 09/30/2019. TECHNIQUE: Real-time, grayscale, and color flow sonography of the right upper quadrant of the abdomen was performed. Images are reviewed in the transverse and longitudinal planes. FINDINGS: Liver: The liver is enlarged measuring over 25 cm in length. The liver demonstrates heterogeneously i ncreased echotexture consistent with severe hepatic steatosis. Note that this degrades acoustic penet ration of the liver. There is no intrahepatic biliary ductal dilatation. The main portal vein is schneider nt. Gallbladder: The gallbladder distended measuring 13 cm in length. No shadowing gallstones are identif ied. There is no gallbladder wall thickening or pericholecystic fluid. A sonographic Quintero's sign is reportedly absent. The common bile duct measures up to 0.4 cm in diameter. Pancreas: Visualized portions of the pancreatic head and body are normal in appearance. Right kidney: Survey images of the right kidney demonstrate normal size and echotexture. There is no hydronephrosis. Ascites: None. IMPRESSION: 1. Hepatomegaly and severe hepatic steatosis. 2. The gallbladder is distended but otherwise normal in appearance. No shadowing gallstones are ident ified (calcified gallstones seen by CT on 09/30/2019 were not visualized by ultrasound). There is no s onographic evidence of acute cholecystitis and gallbladder distention may be related to fasting state . If there is clinical concern for acute cholecystitis consider nuclear hepatobiliary scan. ACT 112: Negative or not required by law. Electronically signed by: Alejandro Phan M.D. 04/20/2020 2:09 PM
[2020-04-20 14:18] LABS: Hepatitis B Surface Antigen Neg (Neg); Hepatitis C IgG 13Yrs+Old_Rflx Neg (Neg)
[2020-04-20] MEDS ORDERED: ONDANSETRON INJ 2 MG/ML 2 ML VIAL IV PRN (14:37)
[2020-04-20] MEDS ORDERED: MAGNESIUM HYDROXIDE SUSP 30 ML UDC PO PRN (14:37)
[2020-04-20] MEDS ORDERED: GABAPENTIN 1200MG ALCOHOL WITHDRAWAL LOAD PO STA (14:37)
[2020-04-20] MEDS ORDERED: POLYETHYLENE (MIRALAX) 17 GM PACK PO PRN (14:37)
[2020-04-20] MEDS ORDERED: LORazepam 3 MG/6 ML VIAL IV PRN (14:37)
[2020-04-20] MEDS ORDERED: LORazepam 2 MG/4 ML VIAL IV PRN (14:37)
[2020-04-20] MEDS ORDERED: ALUMINUM/MAGNESIUM SUSP 30 ML UDC PO PRN (14:37)
[2020-04-20] MEDS ORDERED: ATIVAN IV ALCOHOL WITHDRAWL IV PRN (14:37)
[2020-04-20] MEDS ORDERED: GABAPENTIN 600 MG TAB PO SCH (15:00)
[2020-04-20] MEDS ORDERED: POTASSIUM CHLORIDE 20 MEQ TABCR PO STA (16:14)
[2020-04-20] MEDS: FOLIC ACID 1 MG TAB PO SCH (16:24)
[2020-04-20] MEDS: NSS + 20MEQ KCL 20 MEQ/1,000 ML BAG IV SCH (16:24)
[2020-04-20] MEDS: THIAMINE HCL 100 MG TAB PO SCH (16:25)
[2020-04-20 17:29] LABS: BUN Creatinine Ratio 8.6 (10-20); Calcium 8.4 mg/dl (8.5-10.1); Creatinine Clr Calc Pharmacy 75.3 ml/min; Est GFR (African American) 93.3; Est GFR (Non-African American) 80.5; Magnesium 2.5 mg/dl (1.8-2.4); Potassium 2.9 mmol/L (3.5-5.1)
[2020-04-20 21:13] LABS: BUN Creatinine Ratio 8.8 (10-20); Calcium 8.3 mg/dl (8.5-10.1); Creatinine Clr Calc Pharmacy 82.2 ml/min; Est GFR (African American) 103.6; Est GFR (Non-African American) 89.4; Potassium 3.8 mmol/L (3.5-5.1)
[2020-04-20] MEDS: GABAPENTIN 600 MG TAB PO SCH (21:27)
[2020-04-21] MEDS: NSS + 20MEQ KCL 20 MEQ/1,000 ML BAG IV SCH ×4 (03:48→23:17)
[2020-04-21] MEDS: GABAPENTIN 600 MG TAB PO SCH ×3 (04:11→20:25)
[2020-04-21 06:28] LABS: Hemoglobin 12.6 g/dL (12.0-16.0); Mean Corpuscular Hgb Conc 33.2 g/dL (32-36); Mean Corpuscular Volume 114.5 fL (80-100); Mean Platelet Volume 11.8 fL (7.4-10.4); Platelet Count 150 K/uL (130-400); RDW Coefficient of Variation 13.8 % (11.5-14.5); RDW Standard Deviation 57.3 fL (36.4-46.3); Red Blood Count 3.32 M/uL (4.2-5.4); White Blood Count 8.84 K/uL (4.8-10.8)
[2020-04-21 07:01] LABS: Albumin Level 2.6 gm/dl (3.4-5.0); BUN Creatinine Ratio 8.1 (10-20); Calcium 8.4 mg/dl (8.5-10.1); Creatinine Clr Calc Pharmacy 95.2 ml/min; Est GFR (African American) 123.7; Est GFR (Non-African American) 106.8; Potassium 3.4 mmol/L (3.5-5.1)
[2020-04-21 07:21] LABS: Albumin Globulin Ratio 0.8 (0.9-2); Bilirubin,Total 3.5 mg/dl (0.2-1); Globulin 3.2 gm/dl (2.5-4.0); Phosphorus 1.9 mg/dl (2.5-4.9); Total Protein 5.8 gm/dl (6.4-8.2)
[2020-04-21] MEDS: VENLAFAXINE HCL XR 37.5 MG CAPXR PO SCH (07:54)
[2020-04-21] MEDS: THIAMINE HCL 100 MG TAB PO SCH (07:54)
[2020-04-21] MEDS: FOLIC ACID 1 MG TAB PO SCH (07:54)
[2020-04-21] MEDS: TOPIRAMATE 50 MG TAB PO SCH (07:54)
--- NOTE | 2020-04-21 08:36 | Electrocardiogram Report ---
Test Reason : Blood Pressure : / mmHG Vent. Rate : 055 BPM Atrial Rate : 055 BPM P-R Int : 128 ms QRS Dur : 090 ms QT Int : 462 ms P-R-T Axes : 021 050 042 degrees QTc Int : 441 ms Sinus bradycardia with sinus arrhythmia Otherwise normal ECG When compared with ECG of 19-JAN-2020 09:17, Vent. rate has decreased BY 38 BPM T wave inversion no longer evident in Anterior leads QT has shortened Confirmed by Bairon Suarez ([id number]) on 04/21/2020 8:36:01 AM Referred By: REFERRED SELF Confirmed By:Bairon Suarez
[2020-04-21] MEDS ORDERED: POTASSIUM PHOS 3 MMOL/1 ML INFUSION IV STA (08:47)
[2020-04-21] MEDS ORDERED: PANTOprazole 40 MG TAB PO SCH (09:00)
[2020-04-21] MEDS ORDERED: POTASSIUM PHOSPHATE 30 MMOL in SODIUM CHLORIDE 0.9% 500 ML IV ONE (09:15)
[2020-04-21] MEDS ORDERED: MAGNESIUM OXIDE 400 MG TAB PO SCH (09:15)
[2020-04-21 11:33] LABS: Ferritin 874.3 ng/ml (8-388)
--- NOTE | 2020-04-21 12:03 | Gastrointestinal Consultation ---
Date of Consultation April 21, 2020 Assessment & Plan (1) Elevated LFTs: (2) Seizure: Pt is a 30 y/o female admitted for seizure activity, noted to have elevated LFTs on admission. Was on Topamax and supposed to be on Lamictal but not taking. She continues to drink ETOH heavily on daily basis, previous rehab admission x 3. Abd imaging w u/s showed signs of hepatic steatosis, hepatomegaly, no signs of gallstones, biliary dilation. She reports n/v, loose stools. On exam w/o jaundice, abd soft, non tender. DDx: ETOH hepatitis, DILI less likely, viral hepatitis, [facility] Discriminant Function score: 5 - Seizure med management per primary team/neurology - Check FA & B12 levels, autoimmune serologies and f/u on hepatitis serologies, urine drug screen - Trend LFTs ; monitor coag function, renal function, mental status - Strict ETOh cessation advised. Watch for DTs/ETOH withdrawal - Avoid hepatotoxic meds Supervising Physician Co-Signing Physician Notes I have personally seen and examined the patient with KENA Holbrook. Her note reflects my exam and findings. I agree with her impression and plan. Enzymes concerning for ETOH hep. Patient w/o pain. Will follow liver tests. Wyatt Persaud M.D. History of Present Illness Reason for Consultation: Elevated LFTs Requesting Physician: Dr. Wayne Rodriguez Attending Physician: Dr. Wyatt Persaud History of Present Illness Pt is a 30 y/o female who presented w seizure like activity yesterday. Hx of seizures on Topamax and was supposed to be on Lamictal but not taking. Labs on admission showed low K, Ca, Phosphorus. LFTs were up: Tbili 3.5, AST 91, ALT 35, Alk phose 101. Lipase normal. Abd us showed hepatomegaly and severe hepatic steatosis. Gallbladder is distended but otherwise normal in appearance. No shadowing gallstones are identified. CBD 0.4cm. She reports she had been having nausea and vomiting for several days prior to admission. One episode of blood tinged emesis but resolved. Stool have been loose but she denies any dark tarry appearance or rectal bleeding. She was having diffuse abd pain but on exam today non tender to palpation. No signs of jaundice, abd distension or edema Pt smokes tobacco, denies marijuana. Admits to drink hard lemonades daily. Denies illicit drugs. + tattoos, no body piercing. Takes Melatonin but no herbal supplements. Denies APAP uses. Denies family hx of autoimmune liver dz. Live w boyfriend who she said doesn't drink ETOH Allergies Allergy/AdvReac Type Severity Reaction Status Date / Time No Known Allergies Allergy Unverified 04/20/20 10:12 Home Medications Home Medications Medication Instructions Recorded Confirmed Type aripiprazole [Abilify] 5 mg PO QAM 09/25/19 04/20/20 History etonogestrel-ethinyl estradiol 1 vag ring VAGINAL DIRECTED 11/19/19 04/20/20 History [NuvaRing] magnesium chloride [Mag 64] 64 mg PO BID 11/19/19 04/20/20 History naltrexone 50 mg PO QAM 11/19/19 04/20/20 History thiamine HCl (vitamin B1) [Vitamin 100 mg PO QAM #30 tab 01/22/20 04/20/20 Rx B-1] topiramate 50 mg PO QAM #60 tab 01/22/20 04/20/20 Rx omeprazole magnesium [Prilosec OTC] 20 mg PO QAM 04/20/20 04/20/20 History venlafaxine 37.5 mg PO QAM 04/20/20 04/20/20 History Patient History Medical History Admitted to intensive care unit Alcohol withdrawal Alcohol withdrawal seizure Alcoholism Depression Elevated LFTs Empyema of right pleural space Gram-positive bacteremia Hypophosphatemia Pulmonary abscess Sepsis (Inactive) Severe sepsis Thrombocytopenia (Inactive) Tobacco use Surgical History Status post lung surgery (10/02/19) Evacuation of Empyema with extensive decortication Dr. Jose 10/02/19 Family History Mother Diabetes Social History Preferred Language: Colombian Communication Ability: Effective Visual Impairment: No Limitations Hearing Ability: Normal Editorial Writer Required: No Beliefs That Will Affect Care: None marital status: Single marital status details: Boyfriend Current Living Situation: Significant Other Other Information That Helps Us Care for You: No Feels Safe at Home: Yes Safety Concerns: Feels Safe At This Time Smoking Status: Heavy tobacco smoker Tobacco Type: cigarettes ; Cigarettes Per Day: 10 ; Do You Dip or Chew Tobacco: No ; Second Hand Exposure: No ; Tobacco Cessation Education Requested by Patient: No Hx Alcohol Use: Yes Alcohol type: hard liquor Alcohol Intake Frequency Comment: 3-4 8% - daily Hard lemonade Hx Substance Use: No Review of Systems Review of Systems: All systems reviewed & are unremarkable except as noted in HPI & below Physical Exam Constitutional: WD/WN, vitals as above well groomed, cooperative and comfortable Eyes: PERRL, conjunctivae normal, anicteric sclerae ENMT: external ear and nose normal, oropharynx normal Respiratory: normal respiratory effort, lungs clear to auscultation Cardiovascular: RRR, no murmur, no edema Gastrointestinal (Abdomen): normal bowel sounds, soft, nontender, no hepatosplenomegaly Skin: no rashes, warm and dry no jaundice Neurologic: Motor/Sensory: no asterixis Psychiatric: A+Ox3, euthymic affect Lymphatic: no lymphedema Results & Data ([facility]) Vital Signs (Past 12 Hours) Vital Signs Temp Pulse Resp BP BP Pulse Ox 04/21/20 11:43 36.9 C 88 18 118/82 98 04/21/20 08:02 36.8 C 79 19 127/91 99 04/21/20 04:36 36.6 C 52 L 16 112/75 98
--- NOTE | 2020-04-21 16:49 | Hospitalist Progress Note ---
Date of Service April 21, 2020 Assessment & Plan (1) Alcohol withdrawal seizure: This is a 30 yr old F who has significant PMH of chronic ETOH abuse, hx of pulmonary empyema s/p VATS, depression with anx, hx of alcohol withdrawal seizures who presents ED 11/24 to complaint of seizure like activity around 1:00am this morning. Pt with reports of seizure like activity with b/l upper extremity involvement lasting 2 minutes, witnessed by boyfriend. No loss of bowel or bladder control. Weakness and fatigue followed event. Prior hx of ETOH withdrawal seizure activity - seen and eval by neuro 12/2019 EEG negative at that time. Started on Topamax; however pt has not been taking. Topamax has been restarted No more seizure episodes since admission Alcohol withdrawal AWSS ETOH withdrawal protocol Gapapentin taper, prn ativan Has been getting better without any significant tremor and/or palpitation Has been complaining of diarrhea We will check a stool for C. difficile and culture Imodium if needed (2) Electrolyte abnormality: K 2.2 Mag 1.7 received 40meq KCL PO along with Krider 10meq x 2 in ED Has been getting electrolyte replacement We will monitor (3) Elevated LFTs: Likely secondary alcoholic hepatitis Appreciate GI input and recommendation (4) Hyperbilirubinemia: Total bili 5.7, Direct Bili 3.0, AST 140, ALT 50, ALP 135 prior hx of hepatitis panel negative 2017 - repeat Lipase negative Obtain RUQ U/S - remain NPO until complete She has complaints of Nausea, but otherwise no jailene abdominal pain, exam is benign obtain PT/INR (5) Alcohol abuse: encourage ETOH cessation encouraged considerations for rehab consult case management low threshold for psych involvement Thiamine and folic acid supplementation daily PT and OT have been ordered Strongly advised to go for inpatient rehab (6) Depression with anxiety: continue effexor (7) DVT prophylaxis: SCD/TEDS Will start heparin subcu disposition: admit to PCU Follow up: PCP Dr. Jailene Simmons upon discharge Admission and Anticipated Discharge Date Admission Date: April 20, 2020 Subjective The patient was seen and examined in telemetry unit She has been feeling a lot better today Except minimal weakness and epigastric discomfort denies any other symptoms Also complains today of some diarrhea Review of Systems Review of Systems: All systems reviewed and are unremarkable except as noted below Physical Exam Physical Exam: Lying in bed comfortably Constitutional: well developed, well nourished and + ill appearing; no acute distress Eyes: PERRL, conjunctivae normal, anicteric sclerae ENMT: external ear and nose normal, oropharynx normal Neck: trachea midline, no thyromegaly Respiratory: normal respiratory effort; no respiratory distress Auscultation: lungs clear to auscultation bilaterally Cardiovascular: Rate/Rhythm: regular rate and regular rhythm Heart Sounds: no murmur Gastrointestinal (Abdomen): Inspection/Auscultation: abdomen normal to inspection; + abnormal bowel sounds Percussion/Palpation: + abdomen tender (Minimally tender epigastrium) Musculoskeletal: Hyperactive acute arthritis in any joints Neurologic: moves all extremities; no focal motor deficits Alert, awake and oriented x3 Results & Data Results & Data ([facility]) Vital Signs (Past 12 Hours) Vital Signs Temp Pulse Resp BP Pulse Ox 04/21/20 15:52 36.8 C 71 18 131/92 99 04/21/20 11:43 36.9 C 88 18 118/82 98 04/21/20 08:02 36.8 C 79 19 127/91 99 Laboratory Results Short CBC 04/21/20 Range/Units 05:54 WBC 8.84 (4.8-10.8) K/uL Hgb 12.6 D (12.0-16.0) g/dL Hct 38.0 (37-47) % Plt Count 150 (130-400) K/uL BMP 04/20/20 04/20/20 04/21/20 17:00 20:35 05:54 Sodium 136 136 138 Potassium 2.9 L D 3.8 D 3.4 L Chloride 103 105 109 H Carbon Dioxide 23 22 21 BUN 8 8 6 L Creatinine 0.96 0.88 0.76 Glucose 97 87 78 Calcium 8.4 L 8.3 L 8.4 L Liver Function 04/21/20 Range/Units 05:54 Total Bilirubin 3.5 H (0.2-1) mg/dl AST 91 H (15-37) U/L ALT 35 (12-78) U/L Alkaline Phosphatase 101 (45-117) U/L Albumin 2.6 L (3.4-5.0) gm/dl Medications Administered Current Inpatient Medications Al Hydrox/Mg Hydrox/Simethicone (Maalox) 15 ml PO Q4H PRN PRN Reason: Dyspepsia Stop: 05/20/20 14:36 Last Admin: 04/20/20 19:16 Dose: 15 ml Documented by: Folic Acid (Folvite) 1 mg PO QAM [facility] Stop: 05/20/20 14:59 Last Admin: 04/21/20 07:54 Dose: 1 mg Documented by: Gabapentin (Neurontin) 600 mg PO Q8H [facility] Stop: 04/22/20 04:01 Last Admin: 04/21/20 12:50 Dose: 600 mg Documented by: Gabapentin (Neurontin) 600 mg PO Q12H [facility] Stop: 04/23/20 04:01 Gabapentin (Neurontin) 600 mg PO Q24H [facility] Stop: 04/24/20 04:01 Potassium Chloride/Sodium Chloride (Normal Saline W/20 Meq Kcl) 20 meq in 1,000 mls @ 125 mls/hr IV .Q8H [facility] Stop: 05/20/20 14:36 Last Admin: 04/21/20 15:28 Dose: 125 mls/hr Documented by: Lorazepam (Ativan) 1 mg in 2 mls @ 2 mls/min IV UD PRN; Protocol PRN Reason: EtOH Withdrawl AWSS Score 6,7 Stop: 05/20/20 14:36 Lorazepam (Ativan) 2 mg in 4 mls @ 4 mls/min IV UD PRN; Protocol PRN Reason: EtOH Withdrawl AWSS Score 8,9 Stop: 05/20/20 14:36 Lorazepam (Ativan) 3 mg in 6 mls @ 4 mls/min IV ONCE PRN; Protocol PRN Reason: EtOH Withdrawl AWSS Score >=10 Stop: 05/20/20 14:36 Magnesium Hydroxide (Milk Of Magnesia) 30 ml PO Q12H PRN PRN Reason: Constipation Stop: 05/20/20 14:36 Ondansetron HCl (Zofran) 4 mg IV Q6H PRN PRN Reason: Nausea Stop: 05/20/20 14:36 Pantoprazole Sodium (Protonix) 40 mg PO BID [facility] Stop: 05/21/20 20:59 Polyethylene Glycol (Miralax Powder Packet) 17 gm PO DAILY PRN PRN Reason: Constipation Stop: 05/20/20 14:36 Thiamine HCl (Vitamin B-1) 100 mg PO QAM [facility] Stop: 05/20/20 14:59 Last Admin: 04/21/20 07:54 Dose: 100 mg Documented by: Topiramate (Topamax) 50 mg PO QAM [facility] Stop: 05/21/20 08:59 Last Admin: 04/21/20 07:54 Dose: 50 mg Documented by: Venlafaxine HCl (Effexor Extended Release) 37.5 mg PO QAM [facility] Stop: 05/21/20 08:59 Last Admin: 04/21/20 07:54 Dose: 37.5 mg Documented by: (1) Alcohol withdrawal seizure Complication of substance-induced condition: with unspecified complication Qualified Code(s): F10.239 - Alcohol dependence with withdrawal, unspecified; R56.9 - Unspecified convulsions
[2020-04-21 18:09] LABS: Amphetamines+Metham, Urine Neg (Neg); Barbiturates, Urine Neg (Neg); Benzodiazepine, Urine Neg (Neg); Cocaine, Urine Neg (Neg); MDMA (Ecstacy), Urine Neg (Neg); Methadone, Urine Neg (Neg); Opiate, Urine Neg (Neg); Phencyclidine, Urine Neg (Neg)
[2020-04-21] MEDS: PANTOprazole 40 MG TAB PO SCH (20:25)
[2020-04-21] MEDS ORDERED: BENZONATATE 100 MG CAPSULE PO PRN (21:24)
[2020-04-22] MEDS: GABAPENTIN 600 MG TAB PO SCH ×2 (04:36→16:04)
[2020-04-22 04:46] LABS: Cdiff Antigen Positive; Cdiff Toxin A+B Negative Cdiff Toxin (Negative)
[2020-04-22 07:13] LABS: Basophils # (auto) 0.03 K/uL (0-0.2); Basophils % (auto) 0.5 %; Eosinophils # (auto) 0.11 K/uL (0-0.5); Eosinophils % (auto) 1.8 %; Hematocrit (blood only) 39.2 % (37-47); Hemoglobin 13.3 g/dL (12.0-16.0); Immature Granulocytes # (auto) 0.03 K/uL (0.00-0.02); Immature Granulocytes % (auto) 0.5 %; Lymphocytes # (auto) 1.55 K/uL (1.2-3.4); Lymphocytes % (auto) 25.7 %; Mean Corpuscular Hemoglobin 38.8 pg (25-34); Mean Corpuscular Hgb Conc 33.9 g/dL (32-36); Mean Corpuscular Volume 114.3 fL (80-100); Mean Platelet Volume 12.1 fL (7.4-10.4); Monocytes # (auto) 0.77 K/uL (0.11-0.59); Monocytes % (auto) 12.8 %; Neutrophils # (auto) 3.54 K/uL (1.4-6.5); Neutrophils % (auto) 58.7 %; Platelet Count 154 K/uL (130-400); Red Blood Count 3.43 M/uL (4.2-5.4); White Blood Count 6.03 K/uL (4.8-10.8)
[2020-04-22 07:41] LABS: Macrocytosis Present; Pappenheimer Bodies Occasional
[2020-04-22 07:43] LABS: Albumin Level 2.9 gm/dl (3.4-5.0); BUN Creatinine Ratio 5.4 (10-20); Calcium 8.6 mg/dl (8.5-10.1); Creatinine Clr Calc Pharmacy 107.9 ml/min; Est GFR (African American) 138.6; Est GFR (Non-African American) 119.6; Magnesium 1.8 mg/dl (1.8-2.4); Potassium 3.8 mmol/L (3.5-5.1)
[2020-04-22 07:45] LABS: Albumin Globulin Ratio 0.9 (0.9-2); Globulin 3.4 gm/dl (2.5-4.0); Phosphorus 2.2 mg/dl (2.5-4.9); Total Protein 6.3 gm/dl (6.4-8.2)
[2020-04-22] MEDS: NSS + 20MEQ KCL 20 MEQ/1,000 ML BAG IV SCH ×2 (08:00→16:04)
[2020-04-22] MEDS: THIAMINE HCL 100 MG TAB PO SCH (08:01)
[2020-04-22] MEDS: TOPIRAMATE 50 MG TAB PO SCH (08:01)
[2020-04-22] MEDS: VENLAFAXINE HCL XR 37.5 MG CAPXR PO SCH (08:01)
[2020-04-22] MEDS: FOLIC ACID 1 MG TAB PO SCH (08:01)
[2020-04-22] MEDS: PANTOprazole 40 MG TAB PO SCH ×2 (08:02→20:36)
[2020-04-22 08:09] LABS: Folate (Folic Acid) 11.21 ng/ml (>5.38)
--- NOTE | 2020-04-22 09:38 | Gastroenterology Progress Note ---
Date of Service April 22, 2020 Assessment & Plan (1) Elevated LFTs: (2) Seizure: Pt is a 30 y/o female admitted for seizure activity, noted to have elevated LFTs on admission. Was on Topamax and supposed to be on Lamictal but not taking. She continues to drink ETOH heavily on daily basis, previous rehab admission x 3. Abd imaging w u/s showed signs of hepatic steatosis, hepatomegaly, no signs of gallstones, biliary dilation. She reports n/v, loose stools. On exam w/o jaundice, abd soft, non tender. DDx: ETOH hepatitis, DILI less likely, viral hepatitis, [facility] Discriminant Function score: 5 LFTs trending down, she is mentating well, - Seizure med management per primary team/neurology - F/U autoimmune serologies, hepatitis serologies, urine drug screen (-) - Trend LFTs ; monitor coag function, renal function, mental status - Strict ETOh cessation advised. Watch for DTs/ETOH withdrawal - Avoid hepatotoxic meds - Gi will watch peripherally, pls recall prn Admission and Anticipated Discharge Date Admission Date: April 20, 2020 Supervising Physician Co-Signing Physician Notes I have personally seen and examined the patient with KENA Holbrook. Her note reflects my exam and findings. I agree with her impression and plan. Liver enzymes improving. Patient needs to stop ETOH, she is high risk for advanced ETOH related liver disease. Wyatt Persaud M.D. Subjective Pt denies any abd pain. Vomited sandwich which he ate for breakfast this AM. No signs of coffee ground emesis or hematemesis. Stools loose but improved per her report. Cdiff negative. Review of Systems Review of Systems: All systems reviewed & are unremarkable except as noted in HPI & below Physical Exam Constitutional: WD/WN, vitals as above well groomed, cooperative and comfortable Eyes: PERRL, conjunctivae normal, anicteric sclerae ENMT: external ear and nose normal, oropharynx normal Respiratory: normal respiratory effort, lungs clear to auscultation Cardiovascular: RRR, no murmur, no edema Gastrointestinal (Abdomen): normal bowel sounds, soft, nontender, no hepatosplenomegaly Skin: no rashes, warm and dry no jaundice Neurologic: Motor/Sensory: no asterixis Psychiatric: A+Ox3, euthymic affect Lymphatic: no lymphedema Results & Data ([facility]) Vital Signs (Past 12 Hours) Vital Signs Temp Pulse Pulse Resp BP Pulse Ox 04/22/20 07:30 36.9 C 78 18 126/63 96 04/22/20 03:39 36.9 C 76 16 119/83 99 04/21/20 23:55 36.8 C 59 L 16 143/92 H 100 04/21/20 23:32 70
[2020-04-22] MEDS ORDERED: POTASSIUM PHOS 3 MMOL/1 ML INFUSION IV ONE (09:49)
--- NOTE | 2020-04-22 09:53 | Electroencephalogram ---
EEG Procedure Note Date of Service April 22, 2020 Start / End Times Start Time: 07:16 End Time: 07:36 Referring Physician Christine Jones PA-C History A 30-year-old woman with seizure-like activity. EEG performed for evaluation of epileptiform activity Home Medication List Home Medications Medication Instructions Recorded Confirmed Type aripiprazole [Abilify] 5 mg PO QAM 09/25/19 04/20/20 History etonogestrel-ethinyl estradiol 1 vag ring VAGINAL DIRECTED 11/19/19 04/20/20 History [NuvaRing] magnesium chloride [Mag 64] 64 mg PO BID 11/19/19 04/20/20 History naltrexone 50 mg PO QAM 11/19/19 04/20/20 History thiamine HCl (vitamin B1) [Vitamin 100 mg PO QAM #30 tab 01/22/20 04/20/20 Rx B-1] topiramate 50 mg PO QAM #60 tab 01/22/20 04/20/20 Rx omeprazole magnesium [Prilosec OTC] 20 mg PO QAM 04/20/20 04/20/20 History venlafaxine 37.5 mg PO QAM 04/20/20 04/20/20 History Inpatient Medication List Al Hydrox/Mg Hydrox/Simethicone (Maalox) 15 ml PO Q4H PRN PRN Reason: Dyspepsia Stop: 05/20/20 14:36 Last Admin: 04/20/20 19:16 Dose: 15 ml Documented by: [id number] Benzonatate (Tessalon Perle) 100 mg PO TID PRN PRN Reason: Cough Stop: 05/21/20 21:23 Last Admin: 04/21/20 23:17 Dose: 100 mg Documented by: [id number] Folic Acid (Folvite) 1 mg PO QAM RUSS Stop: 05/20/20 14:59 Last Admin: 04/22/20 08:01 Dose: 1 mg Documented by: [id number] Admin: 04/21/20 07:54 Dose: 1 mg Documented by: [id number] Admin: 04/20/20 16:24 Dose: 1 mg Documented by: [id number] Potassium Chloride/Sodium Chloride (Normal Saline W/20 Meq Kcl) 20 meq in 1,000 mls @ 125 mls/hr IV .Q8H RUSS Stop: 05/20/20 14:36 Last Admin: 04/22/20 08:00 Dose: 125 mls/hr Documented by: [id number] Infusion: 04/22/20 07:38 Dose: 0 mls/hr Documented by: [id number] Admin: 04/21/20 23:17 Dose: 125 mls/hr Documented by: [id number] Infusion: 04/21/20 23:17 Dose: 125 mls/hr Documented by: [id number] Admin: 04/21/20 15:28 Dose: 125 mls/hr Documented by: [id number] Infusion: 04/21/20 15:27 Dose: 0 mls/hr Documented by: [id number] Infusion: 04/21/20 15:27 Dose: 125 mls/hr Documented by: [id number] Admin: 04/21/20 07:53 Dose: 125 mls/hr Documented by: [id number] Infusion: 04/21/20 07:53 Dose: 125 mls/hr Documented by: [id number] Admin: 04/21/20 03:48 Dose: 125 mls/hr Documented by: [id number] Infusion: 04/21/20 02:46 Dose: 125 mls/hr Documented by: [id number] Infusion: 04/20/20 20:24 Dose: 125 mls/hr Documented by: [id number] Infusion: 04/20/20 18:02 Dose: 0 mls/hr Documented by: [id number] Admin: 04/20/20 16:24 Dose: 125 mls/hr Documented by: [id number] Pantoprazole Sodium (Protonix) 40 mg PO BID RUSS Stop: 05/21/20 20:59 Last Admin: 04/22/20 08:02 Dose: 40 mg Documented by: [id number] Admin: 04/21/20 20:25 Dose: 40 mg Documented by: [id number] Thiamine HCl (Vitamin B-1) 100 mg PO QAM RUSS Stop: 05/20/20 14:59 Last Admin: 04/22/20 08:01 Dose: 100 mg Documented by: [id number] Admin: 04/21/20 07:54 Dose: 100 mg Documented by: [id number] Admin: 04/20/20 16:25 Dose: 100 mg Documented by: [id number] Topiramate (Topamax) 50 mg PO QAM RUSS Stop: 05/21/20 08:59 Last Admin: 04/22/20 08:01 Dose: 50 mg Documented by: [id number] Admin: 04/21/20 07:54 Dose: 50 mg Documented by: [id number] Venlafaxine HCl (Effexor Extended Release) 37.5 mg PO QAM [facility] Stop: 05/21/20 08:59 Last Admin: 04/22/20 08:01 Dose: 37.5 mg Documented by: [id number] Admin: 04/21/20 07:54 Dose: 37.5 mg Documented by: [id number] Discontinued Medications Gabapentin (Neurontin) 1,200 mg PO TODAY@1500 RUSS Stop: 04/20/20 15:01 Last Admin: 04/20/20 16:24 Dose: 1,200 mg Documented by: [id number] Gabapentin (Neurontin) 600 mg PO Q6H [facility] Stop: 04/21/20 04:01 Last Admin: 04/21/20 04:11 Dose: 600 mg Documented by: [id number] Admin: 04/20/20 21:27 Dose: 600 mg Documented by: [id number] Gabapentin (Neurontin) 600 mg PO Q8H [facility] Stop: 04/22/20 04:01 Last Admin: 04/22/20 04:36 Dose: 600 mg Documented by: [id number] Admin: 04/21/20 20:25 Dose: 600 mg Documented by: [id number] Admin: 04/21/20 12:50 Dose: 600 mg Documented by: [id number] Sodium Chloride (Nss 1000ml) 1,000 mls @ 999 mls/hr IV .Q1H1M ONE Stop: 04/20/20 10:41 Last Infusion: 04/20/20 12:03 Dose: 0 mls/hr Documented by: [id number] Admin: 04/20/20 11:01 Dose: 999 mls/hr Documented by: [id number] Potassium Chloride (K Florentin / Wtr) 10 meq in 100 mls @ 100 mls/hr IV Q1H RUSS Stop: 04/20/20 13:59 Last Infusion: 04/20/20 15:10 Dose: 0 mls/hr Documented by: [id number] Admin: 04/20/20 14:06 Dose: 100 mls/hr Documented by: [id number] Infusion: 04/20/20 13:32 Dose: 100 mls/hr Documented by: [id number] Admin: 04/20/20 12:32 Dose: 100 mls/hr Documented by: [id number] Magnesium Sulfate/Dextrose (Magnesium Sulfate / D5w) 1 gm in 100 mls @ 100 mls/hr IV NOW STA Stop: 04/20/20 13:21 Last Infusion: 04/20/20 15:10 Dose: 0 mls/hr Documented by: [id number] Admin: 04/20/20 14:06 Dose: 100 mls/hr Documented by: [id number] Potassium Chloride (K Florentin / Wtr) 10 meq in 100 mls @ 100 mls/hr IV Q1H RUSS Stop: 04/20/20 19:59 Last Infusion: 04/20/20 20:24 Dose: 0 mls/hr Documented by: [id number] Admin: 04/20/20 19:13 Dose: 100 mls/hr Documented by: [id number] Infusion: 04/20/20 19:01 Dose: 100 mls/hr Documented by: [id number] Admin: 04/20/20 18:01 Dose: 100 mls/hr Documented by: [id number] Potassium Phosphate 30 mmol/ (Sodium Chloride) 510 mls @ 88 mls/hr IV ONE ONE Stop: 04/21/20 15:02 Last Infusion: 04/21/20 15:26 Dose: 0 mls/hr Documented by: [id number] Admin: 04/21/20 09:55 Dose: 88 mls/hr Documented by: [id number] Pantoprazole Sodium (Protonix) 40 mg PO QAM RUSS Stop: 05/21/20 08:59 Last Admin: 04/21/20 07:55 Dose: 40 mg Documented by: [id number] Potassium Chloride (Klor-Con M10) 40 meq PO NOW STA Stop: 04/20/20 11:55 Last Admin: 04/20/20 12:32 Dose: 40 meq Documented by: [id number] Potassium Chloride (Klor-Con M20) 40 meq PO NOW STA Stop: 04/20/20 16:15 Last Admin: 04/20/20 17:04 Dose: 40 meq Documented by: [id number] Description This is a 21 electrode EEG with a single channel dedicated to limited EKG. The electrodes were placed in accordance with the International 10-20 system. REPORT: At the onset of the EEG the patient is drowsy. A posterior dominant rhythm is 9-10 hertz. The background is symmetric. Drowsiness is characterized by increased theta activity as well as reduced blink rate and decreased myogenic artifact. Photic stimulation does not induce any abnormalities. No stage 2 sleep transients are recorded. IMPRESSION: This is a normal awake and drowsy routine EEG. No epileptiform discharges are recorded.
[2020-04-22 10:04] LABS: Hepatitis A Antibody IgM NON-REACTIVE (NON-REACTIVE); Hepatitis B Core Antibody IgM NON-REACTIVE (NON-REACTIVE)
[2020-04-22] MEDS ORDERED: POTASSIUM PHOSPHATE 15 MMOL in SODIUM CHLORIDE 0.9% 250 ML IV ONE (10:15)
--- NOTE | 2020-04-22 15:04 | Electrocardiogram Report ---
Test Reason : Blood Pressure : / mmHG Vent. Rate : 063 BPM Atrial Rate : 063 BPM P-R Int : 146 ms QRS Dur : 082 ms QT Int : 436 ms P-R-T Axes : 028 050 050 degrees QTc Int : 446 ms Sinus rhythm with marked sinus arrhythmia Otherwise normal ECG When compared with ECG of 21-APR-2020 06:44, No significant change was found Confirmed by Bairon Suarez [id number]) on 04/22/2020 3:04:13 PM Referred By: REFERRED SELF Confirmed By:Bairon Suarez
[2020-04-22] MEDS ORDERED: LOPERAMIDE HCL 2 MG CAP PO PRN (16:40)
--- NOTE | 2020-04-22 16:53 | Hospitalist Progress Note ---
Date of Service April 22, 2020 Assessment & Plan (1) Alcohol withdrawal seizure: Patient is a 30 yr female with H/O Chronic ETOH abuse, hx of pulmonary empyema s/p VATS, depression with anx, hx of alcohol withdrawal seizures who presents ED 11/24 to complaint of seizure activity. Alcohol withdrawal seizure Prior H/O ETOH withdrawal seizure activity - seen and eval by neuro 12/[address]:No acute intracranial abnormality. Neck CT:No acute cervical spine fracture or subluxation. EEG:This is a normal awake and drowsy routine EEG. No epileptiform discharges are recorded. Admits to being non complaint with Topamax Resumed Topamax No seizure activity since hospitalization Continue seizure precautions Patient currently not interested in inpatient rehab placement Alcohol withdrawal AWSS ETOH withdrawal protocol Gabapentin taper, PRN ativan Continue thiamine, folic acid Patient currently not interested in inpatient rehab placement. Has chronic diarrhea We will check a stool for C. difficile and culture Imodium if needed Stool studies: Positive C. difficile gene, negative C. 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 The gallbladder is distended but otherwise normal in appearance. No shadowing gallstones are identified (calcified gallstones seen by CT on 09/30/2019 were not visualized by ultrasound). There is no sonographic evidence of acute cholecystitis and gallbladder distention may be related to fasting state. If there is clinical concern for acute cholecystitis consider nuclear hepatobiliary scan. 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 (4) Hyperbilirubinemia: as above (5) Alcohol abuse: Encourage alcohol cessation Patient not interested in inpatient rehab consult case management On Thiamine and folic acid supplementation daily Ativan PRN (6) Depression with anxiety: continue Venlafaxine (7) DVT prophylaxis: Heparin SQ Admission and Anticipated Discharge Date Admission Date: April 20, 2020 Subjective Patient is seen and examined at bedside States having some heartburn this morning Denies any alcohol withdrawal symptoms No seizure activity since hospitalization Denies any chest pain, shortness of breath, dizziness, abdominal pain Review of Systems Review of Systems: All systems reviewed & are unremarkable except as noted in HPI & below Physical Exam Physical Exam: Physical Exam: Vitals signs as noted above General Appearance:Moderately built and nourished, no apparent distress Head: normocephalic, Atraumatic Eyes: normal inspection, EOMI Neck: supple, Trachea midline Respiratory/Chest: Normal breath sounds, CTA, No accessory muscle use Cardiovascular: S1, S2, No murmur Abdomen/GI:Soft, epigastric tender, Bowel sounds present Extremities/Musculoskelatal:normal inspection, no edema Neurologic/Psych:AAOX3, grossly no focal neurological deficits Skin: normal color, warm Results & Data Results & Data ([facility]) Vital Signs (Past 12 Hours) Vital Signs Temp Pulse Resp BP BP Pulse Ox 04/22/20 15:12 65 18 115/79 99 04/22/20 11:29 36.9 C 70 19 131/93 98 04/22/20 07:30 36.9 C 78 18 126/63 96 Laboratory Results Short CBC 04/22/20 Range/Units 06:17 WBC 6.03 (4.8-10.8) K/uL Hgb 13.3 (12.0-16.0) g/dL Hct 39.2 (37-47) % Plt Count 154 (130-400) K/uL BMP 04/22/20 06:17 Sodium 138 Potassium 3.8 Chloride 112 H Carbon Dioxide 18 L BUN 4 L Creatinine 0.67 Glucose 76 Calcium 8.6 Liver Function 04/22/20 Range/Units 06:17 Total Bilirubin 3.0 H (0.2-1) mg/dl AST 62 H (15-37) U/L ALT 32 (12-78) U/L Alkaline Phosphatase 123 H (45-117) U/L Albumin 2.9 L (3.4-5.0) gm/dl (1) Alcohol withdrawal seizure Complication of substance-induced condition: with unspecified complication Qualified Code(s): F10.239 - Alcohol dependence with withdrawal, unspecified; R 56.9 - Unspecified convulsions
[2020-04-22] MEDS: HEPARIN SOD 5,000 UNIT/0.5 ML VIAL SQ SCH (20:45)
[2020-04-23] MEDS: GABAPENTIN 600 MG TAB PO SCH (04:04)
[2020-04-23 07:16] LABS: Albumin Level 2.7 gm/dl (3.4-5.0); BUN Creatinine Ratio 4.7 (10-20); Bilirubin,Total 2.7 mg/dl (0.2-1); Calcium 8.1 mg/dl (8.5-10.1); Creatinine Clr Calc Pharmacy 93.9 ml/min; Est GFR (African American) 121.8; Est GFR (Non-African American) 105.1; Magnesium 1.6 mg/dl (1.8-2.4); Phosphorus 2.2 mg/dl (2.5-4.9); Potassium 3.6 mmol/L (3.5-5.1); Total Protein 5.8 gm/dl (6.4-8.2)
[2020-04-23] MEDS: VENLAFAXINE HCL XR 37.5 MG CAPXR PO SCH (07:59)
[2020-04-23] MEDS: PANTOprazole 40 MG TAB PO SCH ×2 (07:59→20:32)
[2020-04-23] MEDS: FOLIC ACID 1 MG TAB PO SCH (07:59)
[2020-04-23] MEDS: THIAMINE HCL 100 MG TAB PO SCH (07:59)
[2020-04-23] MEDS: TOPIRAMATE 50 MG TAB PO SCH (07:59)
[2020-04-23] MEDS: HEPARIN SOD 5,000 UNIT/0.5 ML VIAL SQ SCH ×3 (08:11→20:36)
[2020-04-23] MEDS ORDERED: POTASSIUM PHOS 3 MMOL/1 ML INFUSION IV ONE (09:01)
[2020-04-23] MEDS ORDERED: MAGNESIUM SULFATE / D5W 1 GM/100 ML BAG IV ONE (09:15)
[2020-04-23] MEDS ORDERED: POTASSIUM PHOSPHATE 15 MMOL in SODIUM CHLORIDE 0.9% 250 ML IV ONE (09:15)
[2020-04-23 15:13] LABS: Albumin 3.2 g/dL (3.8-4.8); Alpha 1 Antitrypsin 165 mg/dL (83-199); Alpha 1 Globulin 0.3 g/dL (0.2-0.3); Alpha 2 Globulin 0.6 g/dL (0.5-0.9); Anti Nuclear Antibody Screen NEGATIVE (NEGATIVE); Beta-1-Globulin 0.3 g/dL (0.4-0.6); Beta-2-Globulin 0.2 g/dL (0.2-0.5); Ceruloplasmin 26 mg/dL (18-53); Gamma Globulin 0.8 g/dL (0.8-1.7); Monoclonal Protein Band 1 DNR g/dL (NONE DETECTED); Monoclonal Protein Band 2 DNR g/dL (NONE DETECTED); Monoclonal Protein Band 3 DNR g/dL (NONE DETECTED); Smooth Muscle Antibody NEGATIVE (NEGATIVE); Total Protein 5.5 g/dL (6.1-8.1)
--- NOTE | 2020-04-23 16:45 | Hospitalist Progress Note ---
Date of Service April 23, 2020 Assessment & Plan (1) Alcohol withdrawal seizure: Patient is a 30 yr female with H/O Chronic ETOH abuse, hx of pulmonary empyema s/p VATS, depression with anx, hx of alcohol withdrawal seizures who presents ED 11/24 to complaint of seizure activity. Alcohol withdrawal seizure Prior H/O ETOH withdrawal seizure activity - seen and eval by neuro 12/[address]:No acute intracranial abnormality. Neck CT:No acute cervical spine fracture or subluxation. EEG:This is a normal awake and drowsy routine EEG. No epileptiform discharges are recorded. Admits to being non complaint with Topamax Resumed Topamax No seizure activity since hospitalization Continue seizure precautions Patient currently not interested in inpatient rehab placement Needs follow up with Neurology upon discharge Alcohol withdrawal AWSS ETOH withdrawal protocol Gabapentin taper, PRN ativan Continue thiamine, folic acid Patient currently not interested in inpatient rehab placement. No withdrawal symptoms currently Has chronic diarrhea Stool studies: Positive C. difficile gene, negative C. 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 The gallbladder is distended but otherwise normal in appearance. No shadowing gallstones are identified (calcified gallstones seen by CT on 09/30/2019 were not visualized by ultrasound). There is no sonographic evidence of acute cholecystitis and gallbladder distention may be related to fasting state. If there is clinical concern for acute cholecystitis consider nuclear hepatobiliary scan. 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 (4) Hyperbilirubinemia: as above (5) Alcohol abuse: Encourage alcohol cessation Patient not interested in inpatient rehab consult case management On Thiamine and folic acid supplementation daily Ativan PRN (6) Depression with anxiety: continue Venlafaxine (7) DVT prophylaxis: Heparin SQ Admission and Anticipated Discharge Date Admission Date: April 20, 2020 Subjective Patient is seen and examined at bedside Diarrhea improved No new complaints No withdrawal symptoms No seizure activity since hospitalization Denies any chest pain, shortness of breath, dizziness, abdominal pain Will replace Mag, Phos Review of Systems Review of Systems: All systems reviewed & are unremarkable except as noted in HPI & below Physical Exam Physical Exam: Physical Exam: Vitals signs as noted above General Appearance:Moderately built and nourished, no apparent distress Head: normocephalic, Atraumatic Eyes: normal inspection, EOMI Neck: supple, Trachea midline Respiratory/Chest: Normal breath sounds, CTA, No accessory muscle use Cardiovascular: S1, S2, No murmur Abdomen/GI:Soft, epigastric tender, Bowel sounds present Extremities/Musculoskelatal:normal inspection, no edema Neurologic/Psych:AAOX3, grossly no focal neurological deficits Skin: normal color, warm Results & Data Results & Data ([facility]) Vital Signs (Past 12 Hours) Vital Signs Temp Pulse Pulse Resp BP Pulse Ox 04/23/20 15:23 36.7 C 73 18 118/84 97 04/23/20 11:26 36.6 C 76 18 125/88 98 04/23/20 08:00 80 04/23/20 07:59 36.8 C 102 H 19 119/87 98 Laboratory Results [facility] 04/23/20 06:02 Sodium 137 Potassium 3.6 Chloride 112 H Carbon Dioxide 19 L BUN 4 L Creatinine 0.77 Glucose 84 Calcium 8.1 L Liver Function 04/23/20 Range/Units 06:02 Total Bilirubin 2.7 H (0.2-1) mg/dl Direct Bilirubin 2.0 H (0-0.2) mg/dl AST 49 H (15-37) U/L ALT 29 (12-78) U/L Alkaline Phosphatase 133 H (45-117) U/L Albumin 2.7 L (3.4-5.0) gm/dl (1) Alcohol withdrawal seizure Complication of substance-induced condition: with unspecified complication Qualified Code(s): F10.239 - Alcohol dependence with withdrawal, unspecified; R56.9 - Unspecified convulsions
[2020-04-23] MEDS: MAGNESIUM CHLORIDE 64MG DELAYED REL TAB PO SCH (20:31)
[2020-04-23] MEDS: LORazepam 1 MG/2 ML VIAL IV PRN (23:46)
[2020-04-24] MEDS: LORazepam 1 MG/2 ML VIAL IV PRN ×2 (00:21→04:04)
[2020-04-24] MEDS ORDERED: GABAPENTIN 600 MG TAB PO SCH (04:00)
[2020-04-24] MEDS ORDERED: ARIPiprazole 5 MG TAB PO SCH (09:00)
[2020-04-24] MEDS ORDERED: NALTREXONE HCL 50 MG TAB PO SCH (09:00)
[2020-04-24 09:32] LABS: Albumin Level 2.9 gm/dl (3.4-5.0); BUN Creatinine Ratio 10.3 (10-20); Calcium 8.9 mg/dl (8.5-10.1); Creatinine Clr Calc Pharmacy 99.1 ml/min; Est GFR (African American) 129.9; Est GFR (Non-African American) 112.1; Magnesium 2.1 mg/dl (1.8-2.4); Potassium 3.8 mmol/L (3.5-5.1)
[2020-04-24 09:38] LABS: Bilirubin Direct 2.4 mg/dl (0-0.2); Bilirubin,Total 3.3 mg/dl (0.2-1); Total Protein 6.6 gm/dl (6.4-8.2)
[2020-04-24] MEDS: PANTOprazole 40 MG TAB PO SCH (10:00)
[2020-04-24] MEDS: THIAMINE HCL 100 MG TAB PO SCH (10:00)
[2020-04-24] MEDS: MAGNESIUM CHLORIDE 64MG DELAYED REL TAB PO SCH (10:00)
[2020-04-24] MEDS: TOPIRAMATE 50 MG TAB PO SCH (10:00)
[2020-04-24] MEDS: FOLIC ACID 1 MG TAB PO SCH (10:01)
[2020-04-24] MEDS: HEPARIN SOD 5,000 UNIT/0.5 ML VIAL SQ SCH (10:01)
[2020-04-24] MEDS: VENLAFAXINE HCL XR 37.5 MG CAPXR PO SCH (10:01)
--- NOTE | 2020-04-24 13:12 | Hospitalist Progress Note ---
Date of Service April 24, 2020 Assessment & Plan (1) Alcohol withdrawal seizure: Patient is a 30 yr female with H/O Chronic ETOH abuse, hx of pulmonary empyema s/p VATS, depression with anx, hx of alcohol withdrawal seizures who presents ED 11/24 to complaint of seizure activity. Alcohol withdrawal seizure Prior H/O ETOH withdrawal seizure activity - seen and eval by neuro 12/[address]:No acute intracranial abnormality. Neck CT:No acute cervical spine fracture or subluxation. EEG:This is a normal awake and drowsy routine EEG. No epileptiform discharges are recorded. Admits to being non complaint with Topamax Resumed Topamax--50 mg daily No seizure activity since hospitalization Continue seizure precautions Needs follow up with Neurology upon discharge No seizure-like activity since hospitalization. Refused inpatient rehab placement Alcohol withdrawal AWSS ETOH withdrawal protocol Gabapentin taper, PRN ativan Continue thiamine, folic acid Patient currently not interested in inpatient rehab placement. No withdrawal symptoms Has chronic diarrhea Stool studies: Positive C. difficile gene, negative C. 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 The gallbladder is distended but otherwise normal in appearance. No shadowing gallstones are identified (calcified gallstones seen by CT on 09/30/2019 were not visualized by ultrasound). There is no sonographic evidence of acute cholecystitis and gallbladder distention may be related to fasting state. If there is clinical concern for acute cholecystitis consider nuclear hepatobiliary scan. 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 Can follow up with GI as outpatient Will repeat LFTs outpatient (4) Hyperbilirubinemia: as above (5) Alcohol abuse: Encourage alcohol cessation Patient not interested in inpatient rehab consult case management On Thiamine and folic acid supplementation daily Ativan PRN (6) Depression with anxiety: continue Venlafaxine (7) DVT prophylaxis: Heparin SQ Admission and Anticipated Discharge Date Admission Date: April 20, 2020 Subjective Patient is seen and examined at bedside Doing well today Diarrhea resolved Offers no new complaints No alcohol withdrawal symptoms No seizure activity since hospitalization Electrolytes within normal limits today. Denies any chest pain, shortness of breath, dizziness, abdominal pain Review of Systems Review of Systems: All systems reviewed & are unremarkable except as noted in HPI & below Physical Exam Physical Exam: Physical Exam: Vitals signs as noted above General Appearance:Moderately built and nourished, no apparent distress Head: normocephalic, Atraumatic Eyes: normal inspection, EOMI Neck: supple, Trachea midline Respiratory/Chest: Normal breath sounds, CTA, No accessory muscle use Cardiovascular: S1, S2, No murmur Abdomen/GI:Soft, non tender, Bowel sounds present Extremities/Musculoskelatal:normal inspection, no edema Neurologic/Psych:AAOX3, grossly no focal neurological deficits Skin: normal color, warm Results & Data Results & Data ([facility]) Vital Signs (Past 12 Hours) Vital Signs Temp Pulse Resp BP BP Pulse Ox 04/24/20 07:08 36.8 C 81 18 115/77 97 04/24/20 03:54 37.1 C 84 20 122/77 97 Laboratory Results [facility] 04/24/20 08:07 Sodium 136 Potassium 3.8 Chloride 106 Carbon Dioxide 19 L BUN 7 Creatinine 0.73 Glucose 71 Calcium 8.9 Liver Function 04/24/20 Range/Units 08:07 Total Bilirubin 3.3 H (0.2-1) mg/dl Direct Bilirubin 2.4 H (0-0.2) mg/dl AST 56 H (15-37) U/L ALT 32 (12-78) U/L Alkaline Phosphatase 118 H (45-117) U/L Albumin 2.9 L (3.4-5.0) gm/dl (1) Alcohol withdrawal seizure Complication of substance-induced condition: with unspecified complication Qualified Code(s): F10.239 - Alcohol dependence with withdrawal, unspecified; R56.9 - Unspecified convulsions
--- NOTE | 2020-04-24 13:36 | Discharge Summary ---
Date of Service April 24, 2020 Admission HPI Per Admitting Provider This is a 30 yr old F who has significant PMH of chronic ETOH abuse, hx of pulmonary empyema s/p VATS, depression with anx, hx of alcohol withdrawal seizures who presents ED 2/ to complaint of seizure like activity around 1:00am this morning. She was lying in bed with boyfriend when she noticed an, "aura" seeing spots, "like someone flashed a camera at her," then she started having convulsions of her upper extremities. She does not recall events. Witnessed by her boyfriend. She did not lose bowel or bladder control. Generally felt weak and tired since event. Opted to not come in last evening, because, "I didn't t hink it was serious." After event she did try to walk to bathroom and lower extremities very weak and she fall. She did not hit or head and denies injury. Prior hx of seizure like activity with ETOH use. She has stopped many of her medications including Lamictal. She continues to abuse etoh, last drink 2 days ago which included 3-4 8% hard lemonades. She stopped drinking because, "i'm tired of being sick and tired." Feels that she may consider rehab but wants to think about it. Denies any S.I. or H.I. but general anhedonia. Denies recent f/c/s, dizziness, lightheaded,chest pain, sob, hemoptysis, hematemesis, abdominal pain, diarrhea, dysuria, increased urg/freq with urination. Overall poor appetite past 2-3 days, has no ate or drank much. +GERD and nausea. She states she is unable to keep things down. Admission Exam Per Admitting Provider Physical Exam Physical Exam: Constitutional: WD/WN, vitals as above, NAD, sitting up in bed, pleasant, conversing easily Head: Normocephalic, Atraumatic Eyes: PERRL, conjunctivae normal, anicteric sclerae ENMT: external ear and nose normal, oropharynx normal Neck: trachea midline, no thyromegaly normal visual inspection Respiratory: normal respiratory effort, lungs clear to auscultation, no wheeze, rales, rhonchi. Normal insp/exp effort, no accessory muscle use Cardiovascular: RRR, no murmur, no edema Vessels: no JVD or carotid bruit Chest: normal inspection of chest Abdomen: normal bowel sounds, soft, nontender, no hepatosplenomegaly Musculoskeletal: no cyanosis or clubbing, extremities motor strength 5/5 Skin: no rashes, warm and dry normal turgor Neurologic: no tremors noted, no asterixis, PERRL, EOMI, accommodation nl, no face palsy, no dysarthria CN's II-XI intact bilaterally and moves all extremities Psychiatric: A+Ox3, euthymic affect Lymphatic: no cervical or axillary lymphadenopathy : deferred Principal Diagnosis Alcohol withdrawal seizure Alcohol use disorder Hypokalemia Hypomagnesemia Hypophosphatemia Discharge Data Allergies Allergy/AdvReac Type Severity Reaction Status Date / Time No Known Allergies Allergy Unverified 04/20/20 10:12 Consultations 04/20/20 12:44 ED Decision to Admit Stat 04/20/20 12:45 Consult Gastroenterology Routine 04/20/20 14:37 Consult Case Management - Discharge Planning Routine Procedures Performed Head CT:No acute intracranial abnormality. Neck CT:No acute cervical spine fracture or subluxation. EEG:This is a normal awake and drowsy routine EEG. No epileptiform discharges are recorded. ABD USD:Hepatomegaly and severe hepatic steatosis. The gallbladder is distended but otherwise normal in appearance. No shadowing gallstones are identified (calcified gallstones seen by CT on 09/30/2019 were not visualized by ultrasound). There is no sonographic evidence of acute cholecystitis and gallbladder distention may be related to fasting state. If there is clinical concern for acute cholecystitis consider nuclear hepatobiliary scan. Ordered Studies 04/20/20 09:41 CT cervical spine wo con Stat 04/20/20 09:42 CT head/brain wo con Stat 04/20/20 12:44 US abdomen limited Stat Hospital Course (1) Alcohol withdrawal seizure: Patient is a 30 yr female with H/O Chronic ETOH abuse, hx of pulmonary empyema s/p VATS, depression with anx, hx of alcohol withdrawal seizures who presents ED 2 to complaint of seizure activity. Alcohol withdrawal seizure Prior H/O ETOH withdrawal seizure activity - seen and eval by neuro 12/[address]:No acute intracranial abnormality. Neck CT:No acute cervical spine fracture or subluxation. EEG:This is a normal awake and drowsy routine EEG. No epileptiform discharges are recorded. Admits to being non complaint with Topamax Resumed Topamax--50 mg daily No seizure activity since hospitalization Continue seizure precautions Needs follow up with Neurology upon discharge No seizure-like activity since hospitalization. Refused inpatient rehab placement Alcohol withdrawal AWSS ETOH withdrawal protocol Gabapentin taper, PRN ativan Continue thiamine, folic acid Patient currently not interested in inpatient rehab placement. No withdrawal symptoms Has chronic diarrhea Stool studies: Positive C. difficile gene, negative C. 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 The gallbladder is distended but otherwise normal in appearance. No shadowing gallstones are identified (calcified gallstones seen by CT on 09/30/2019 were not visualized by ultrasound). There is no sonographic evidence of acute cholecystitis and gallbla dder distention may be related to fasting state. If there is clinical concern for acute cholecystitis consider nuclear hepatobiliary scan. 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 Can follow up with GI as outpatient Will repeat LFTs outpatient (4) Hyperbilirubinemia: as above (5) Alcohol abuse: Encourage alcohol cessation Patient not interested in inpatient rehab consult case management On Thiamine and folic acid supplementation daily Ativan PRN (6) Depression with anxiety: continue Venlafaxine (7) DVT prophylaxis: Heparin SQ Total Time Total Time Spent Total Time Spent (In Minutes): 42 minutes Total Time Includes: Examination of the Patient, Discharge Planning, Medication Reconciliation, Communication With Other Providers and Other Discharge Plan Discharge Items Patient Disposition: Home - Self-Care Reason For Visit: ETOH WITHDRAWAL, REPORTED SEIZURE, HYPOKALEMIA Discharge Diagnosis: Alcohol withdrawal seizure Alcohol use disorder Hypokalemia Hypomagnesemia Hypophosphatemia Activity: Resume your previous activity Exercise/Sports: Gradually increase as tolerated Driving/Machine Use: Driving is not permitted until cleared by your primary care physician or neurologist. Non-emergency contact: Primary Care Provider, Tissue Recovery Technician and Neurologist Call non-emergency contact if: you have any medication questions, your symptoms worsen, your pain is not controlled, your pain is worsening, your pain is unusual for you, your pain is concerning for you and you have a fever Follow-up/Referrals: Stephenie Sandoval MD [Primary Care Provider] - 04/30/20 8:20 am (04/30/2020 8:20 AM Provider Stephenie Simmons MD Department Internal Medicine [facility] ) Diet: Regular Ambulatory Orders: Hepatic Function (Liver) Panel (Routine) Timeframe: 2 Weeks Location: Determined by Patient Ordered By: Roldan Alvarado Renal Function Panel (Routine) Timeframe: 2 Weeks Location: Determined by Patient Ordered By: Roldan Alvarado Add Attending Provider Instructions: Follow-up with your primary care physician Dr. Ziyad Simmons on April 30, 2020 at 8:20 AM Follow-up with your neurologist as recommended for further management of your alcohol withdrawal seizure Follow-up with your pipe machine operator for chronic diarrhea and alcoholic hepatitis as advised. Get blood test, liver function test and renal function panel in 2 weeks and follow-up with your pipe machine operator or primary care physician. Quit drinking alcohol as advised No driving until cleared by your Primary Care Physician/Neurologist. Seek immediate medical attention if your symptoms reoccur or worsen Take Topamax 50 mg daily regularly as advised. Further management as per your primary care physician or neurologist. Pending Studies at Discharge: No Stand-Alone Forms: [facility] [place], Smoking Cessation Medications and DC Order Prescriptions: New folic acid 1 mg Tablet 1 mg PO QAM 30 Days Qty: 30 RF: 0 Continued venlafaxine 37.5 mg capsule,extended release 24hr 37.5 mg PO QAM RF: 0 omeprazole magnesium [Prilosec OTC] 20 mg Tablet,Delayed Release (Dr/Ec) 20 mg PO QAM RF: 0 thiamine HCl (vitamin B1) [Vitamin B-1] 100 mg Tablet 100 mg PO QAM 30 Days Qty: 30 RF: 0 aripiprazole [Abilify] 5 mg Tablet 5 mg PO QAM RF: 0 naltrexone 50 mg tablet 50 mg PO QAM RF: 0 etonogestrel-ethinyl estradiol [NuvaRing] 0.12-0.015 mg/24 hr ring 1 vag ring VAGINAL DIRECTED RF: 0 magnesium chloride [Mag 64] 64 mg tablet,delayed release (DR/EC) 64 mg PO BID RF: 0 topiramate 50 mg Tablet 50 mg PO QAM Qty: 60 RF: 0 Discharge Orders: Discharge Order (Routine); Ordered 04/24/20 Ordered By: Roldan Santacruz/Other Patient Handouts: Alcoholism How to be Part of the Solution, Alcoholism: Getting Help, Alcohol Withdrawal: What to Expect, Addiction: Your Treatment Options, ED Alcohol Withdrawal Seizure Admission Data Admit Date/Time: 04/20/20 12:43 Attending Provider: Roldan Alvarado Admit Provider: Wayne Rodriguez Primary Care Provider: Stephenie Sandoval Other Providers: Wayne Rodriguez ; Wyatt Persaud Other Interventions: Discharge Summary Assessment (RN) Last Done: 04/24/20 13:16 DC Date/Time DO NOT enter until pt leaves facility: 04/24/20 14:27
== END 2020-04-24 14:27 | disposition home or self-care (01) | DRG 101 ==
LOC: ED 09:28 → 2S 12:43 → SUATTDRO 12:43 → 2S 14:25 → 3W 04-23 15:16

== ENCOUNTER 2020-07-15 18:03 | Inpatient (IN) ==
[2020-07-15] MEDS ORDERED: MULTI-VITAMIN INFUSION 10 ML, THIAMINE HCL 100 MG, FOLIC ACID 1 MG in SODIUM CHLORIDE 0... IV ONE (19:53)
[2020-07-15] MEDS ORDERED: SODIUM CHLORIDE 0.9% 1000ML 1,000 ML IV SCH (20:00)
--- NOTE | 2020-07-15 20:11 | Emergency Department Note ---
Impression & Plan Elevated LFTs, Hypokalemia, Hypomagnesemia, Alcohol abuse, Hyperbilirubinemia ED Provider Note NAME: ASHUTOSH GARCES AGE: 30 SEX: F : 1990 ARRIVES VIA: Walk-In INFORMANT: Patient, ED PROVIDER(S): Dalton Singleton MD Chief Complaint: Detox request HPI: Patient does presents at the behest of outpatient as well as due to the patient's concern of alcohol abuse. Patient states that she was also referred due to concern of jaundice. The patient was recently seen but left by her own decision prior to receiving the full length of care. Patient states that she is an alcoholic and does drink approximately four 8 ounce Nanette beverages per day. The patient states that her last drink was around 6 AM this morning. Patient denies any substance abuse. The patient was also concerned about the possibility of oral thrush. The patient has tried to sober up on her own and decrease her alcohol intake but the patient has had alcohol withdrawal type seizures. Patient also did have significant electrolyte abnormalities during her most recent admission. ROS: See HPI for pertinent positives and negatives. A total of 10 systems were reviewed and otherwise negative. Past medical history: See below Surgical history: See below Social history: See below Physical Exam: GENERAL: NAD, non-toxic. Non-tremulous. Wearing a mask. EYE EXAM: Scleral scleral icterus noted bilaterally. PERRL, no anisocoria and EOM's grossly intact w/o pain. NECK: Supple, no nuchal rigidity, no adenopathy, non-tender. No signs of meningismus. LUNGS: Clear to auscultation. Normal chest wall mechanics. HEART: Tachycardic and regular, no MRG. ABDOMEN: Abdomen soft, non-tender, normo-active bowel sounds, no masses, no rebound or guarding. BACK: No CVA TTP. SKIN: No rashes and no bruising. UPPER EXTREMITIES: Upper extremities are grossly normal. No tremor noted. LOWER EXTREMITIES: Grossly normal, no edema. NEURO EXAM: A&O x3, cranial nerves II-XII grossly intact, normal speech, moves all 4 extremities on command w/o issue. Good [id number]. Differential diagnoses: Infection, dehydration, metabolic abnormality, h ypo/hyperglycemia, electrolyte disturbance, anemia, hypoxia, cardiac sources, intracerebral event, toxicologic, neurologic, as well as other pathologies. Course: Patient was seen and evaluated the bedside. Full history physical exam was performed. EKG: Sinus tachycardia, rate 103, normal NV and QRS, normal axis, no ST changes or T WI. Imaging Studies: Radiology results as stated below per my review in the radiologist's interpretation: Cardiac monitoring: An order was placed for continuous cardiac monitoring. The monitor shows a rate of 109 with sinus tachycardia rhythm. MDM: Patient does present with concern for wanting to decrease alcohol use and a history of alcoholism. Patient did a blood work completed and was given a banana bag. The patient's alcohol is not detectable. Ammonia is not elevated. Patient does have low albumin calcium magnesium and potassium. These were o rdered for repleted. The patient does have hyperbilirubinemia and elevated AST consistent with alcohol abuse. Patient does have mild white count of 13 with a normal hemoglobin and platelet count. Slight change in coagulation studies likely consistent with the patient's history of alcohol abuse. I did speak with the on-call hospitalist Dr. Morrison with [facility] [address] medicine service. Patient was admitted to the medicine service. Patient was ordered Valium every 15 minutes as needed for tremulousness or agitation. I did reassess the patient the patient was very restless and she did receive IV Valium. Critical Care: I have personally spent 35 minutes of critical care time in direct management of this patient. This includes bedside care, interpretation of diagnostic studies, and testing, discussion with consultants, patient, and family members, and other require inpatient management activities. This 35 minutes is in excess of all separately billable procedures. Past Med/Surg History Medical History Admitted to intensive care unit Alcohol withdrawal Alcohol withdrawal seizure Alcoholism Depression Elevated LFTs Empyema of right pleural space Gram-positive bacteremia Hypophosphatemia Pulmonary abscess Sepsis Severe sepsis Thrombocytopenia Tobacco use Surgical History Status post lung surgery (10/02/19) Evacuation of Empyema with extensive decortication Dr. 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: No Beliefs That Will Affect Care: None marital status: Single marital status details: Boyfriend Current Living Situation: Parent Feels Safe at Home: Yes Assistive Devices: Contacts and Glasses Allergies Allergies Allergy/AdvReac Type Severity Reaction Status Date / Time No Known Allergies Allergy Verified 07/15/20 21:28 Home Meds Home Medications Medication Instructions Recorded Confirmed aripiprazole [Abilify] 5 mg PO QAM 09/25/19 07/15/20 etonogestrel-ethinyl estradiol 1 vag ring VAGINAL DIRECTED 11/19/19 07/15/20 [NuvaRing] omeprazole magnesium [Prilosec OTC] 20 mg PO QAM 04/20/20 07/15/20 fluoxetine 60 mg PO QAM 07/11/20 07/15/20 multivitamin 1 tab PO BID 07/11/20 07/15/20 ondansetron 4 mg PO Q6H PRN 07/15/20 07/15/20 Previous Rx's Medication Instructions Recorded topiramate 50 mg PO QAM #60 tab 01/22/20 famotidine 20 mg PO BID #20 tab 07/11/20 magnesium oxide 500 mg PO BID #14 tab 07/11/20 potassium chloride [Klor-Con M20] 20 meq PO BID #14 tab 07/11/20 Results & Data (ED) Vital Signs Vital Signs - 24 hr 07/15/20 18:15 07/15/20 20:26 07/15/20 21:50 Temperature 36.9 C Temperature Source Oral Pulse Rate 132 H Pulse Rate [Apical] 109 H Pulse Rhythm [Apical] Regular Respiratory Rate 18 18 Respiratory Effort / Characteristics Non-Labored Spontaneous Respiratory Depth Normal Blood Pressure 112/82 Blood Pressure [Right Arm] 112/73 Blood Pressure Mean 92 Blood Pressure Mean [Right Arm] 86 Blood Pressure Position Sitting Pulse Oximetry 100 99 Oxygen Delivery Method Room Air Room Air Room Air Sepsis Recent Fever Within 48 Hours No Sepsis New/Unexplained Change in Mental Status N/A Sepsis Action Taken by Nursing No Action Required Home Medications Current Medication List: was personally reviewed by me Laboratory Data Attestation: I reviewed the patient's lab results. Result diagrams: 07/16/20 12:10 07/16/20 07:55 Lab Results 07/15/20 07/15/20 07/15/20 Range/Units 20:06 20:06 20:06 WBC (4.8-10.8) K/uL RBC (4.2-5.4) M/uL Hgb (12.0-16.0) g/dL Hct (37-47) % MCV (80-100) fL MCH (25-34) pg MCHC (32-36) g/dL RDW Std Deviation (36.4-46.3) fL RDW Coeff of Vinod (11.5-14.5) % Plt Count (130-400) K/uL MPV (7.4-10.4) fL Immature Gran % (Auto) % Neut % (Auto) % Lymph % (Auto) % [place] % (Auto) % Eos % (Auto) % Baso % (Auto) % Neut # (Auto) (1.4-6.5) K/uL Lymph # (Auto) (1.2-3.4) K/uL [place] # (Auto) (0.11-0.59) K/uL Eos # (Auto) (0-0.5) K/uL Baso # (Auto) (0-0.2) K/uL Immature Gran # (Auto) (0.00-0.02) K/uL PT Cancelled INR Cancelled APTT Cancelled PTT Ratio Cancelled Sodium Cancelled Potassium Cancelled Chloride Cancelled Carbon Dioxide Cancelled Anion Gap Cancelled BUN Cancelled Creatinine Cancelled Est Cr Clr Drug Dosing Cancelled Est GFR ( Amer) Cancelled Est GFR (Non-Af Amer) Cancelled BUN/Creatinine Ratio Cancelled Glucose Cancelled Calcium Cancelled Phosphorus Cancelled Magnesium Cancelled Total Bilirubin Cancelled AST Cancelled ALT Cancelled Alkaline Phosphatase Cancelled Ammonia (11-32) umol/L Total Protein Cancelled Albumin Cancelled Globulin Cancelled Albumin/Globulin Ratio Cancelled Procalcitonin (0-0.5) ng/ml TSH Cancelled Salicylates Acetaminophen Ethyl Alcohol mg/dL 07/15/20 07/15/20 07/15/20 Range/Units 20:06 20:06 20:06 WBC 13.45 H (4.8-10.8) K/uL RBC 3.37 L (4.2-5.4) M/uL Hgb 12.4 (12.0-16.0) g/dL Hct 36.6 L (37-47) % MCV 108.6 H (80-100) fL MCH 36.8 H (25-34) pg MCHC 33.9 (32-36) g/dL RDW Std Deviation 70.3 H (36.4-46.3) fL RDW Coeff of Vinod 18.5 H (11.5-14.5) % Plt Count 281 (130-400) K/uL MPV 13.1 H (7.4-10.4) fL Immature Gran % (Auto) 0.3 % Neut % (Auto) 80.2 % Lymph % (Auto) 10.4 % [place] % (Auto) 7.1 % Eos % (Auto) 1.6 % Baso % (Auto) 0.4 % Neut # (Auto) 10.78 H (1.4-6.5) K/uL Lymph # (Auto) 1.40 (1.2-3.4) K/uL [place] # (Auto) 0.96 H (0.11-0.59) K/uL Eos # (Auto) 0.22 (0-0.5) K/uL Baso # (Auto) 0.05 (0-0.2) K/uL Immature Gran # (Auto) 0.04 H (0.00-0.02) K/uL PT INR APTT PTT Ratio Sodium Potassium Chloride Carbon Dioxide Anion Gap BUN Creatinine Est Cr Clr Drug Dosing Est GFR ( Amer) Est GFR (Non-Af Amer) BUN/Creatinine Ratio Glucose Calcium Phosphorus Magnesium Total Bilirubin AST ALT Alkaline Phosphatase Ammonia (11-32) umol/L Total Protein Albumin Globulin Albumin/Globulin Ratio Procalcitonin (0-0.5) ng/ml TSH Salicylates Cancelled Acetaminophen Cancelled Ethyl Alcohol mg/dL Cancelled 07/15/20 07/15/20 07/15/20 Range/Units 22:23 22:23 22:23 WBC (4.8-10.8) K/uL RBC (4.2-5.4) M/uL Hgb (12.0-16.0) g/dL Hct (37-47) % MCV (80-100) fL MCH (25-34) pg MCHC (32-36) g/dL RDW Std Deviation (36.4-46.3) fL RDW Coeff of Vinod (11.5-14.5) % Plt Count (130-400) K/uL MPV (7.4-10.4) fL Immature Gran % (Auto) % Neut % (Auto) % Lymph % (Auto) % [place] % (Auto) % Eos % (Auto) % Baso % (Auto) % Neut # (Auto) (1.4-6.5) K/uL Lymph # (Auto) (1.2-3.4) K/uL [place] # (Auto) (0.11-0.59) K/uL Eos # (Auto) (0-0.5) K/uL Baso # (Auto) (0-0.2) K/uL Immature Gran # (Auto) (0.00-0.02) K/uL PT INR APTT PTT Ratio Sodium 139 Potassium 3.1 L Chloride 102 Carbon Dioxide 22 Anion Gap 15.0 H BUN 2 L Creatinine 0.75 Est Cr Clr Drug Dosing 96.4 Est GFR ( Amer) 125.7 Est GFR (Non-Af Amer) 108.5 BUN/Creatinine Ratio 2.3 L Glucose 76 Calcium 7.8 L Phosphorus 2.5 Magnesium 1.5 L Total Bilirubin 4.5 H AST 110 H ALT 56 Alkaline Phosphatase 228 H Ammonia (11-32) umol/L Total Protein 4.5 L Albumin 1.8 L Globulin 2.7 Albumin/Globulin Ratio 0.7 L Procalcitonin (0-0.5) ng/ml TSH 3.760 Salicylates Acetaminophen Ethyl Alcohol mg/dL < 3.0 07/15/20 07/15/20 07/15/20 Range/Units 22:23 22:23 22:26 WBC (4.8-10.8) K/uL RBC (4.2-5.4) M/uL Hgb (12.0-16.0) g/dL Hct (37-47) % MCV (80-100) fL MCH (25-34) pg MCHC (32-36) g/dL RDW Std Deviation (36.4-46.3) fL RDW Coeff of Vinod (11.5-14.5) % Plt Count (130-400) K/uL MPV (7.4-10.4) fL Immature Gran % (Auto) % Neut % (Auto) % Lymph % (Auto) % [place] % (Auto) % Eos % (Auto) % Baso % (Auto) % Neut # (Auto) (1.4-6.5) K/uL Lymph # (Auto) (1.2-3.4) K/uL [place] # (Auto) (0.11-0.59) K/uL Eos # (Auto) (0-0.5) K/uL Baso # (Auto) (0-0.2) K/uL Immature Gran # (Auto) (0.00-0.02) K/uL PT 14.6 H INR 1.4 H APTT 31.8 H PTT Ratio 1.1 Sodium Potassium Chloride Carbon Dioxide Anion Gap BUN Creatinine Est Cr Clr Drug Dosing Est GFR ( Amer) Est GFR (Non-Af Amer) BUN/Creatinine Ratio Glucose Calcium Phosphorus Magnesium Total Bilirubin AST ALT Alkaline Phosphatase Ammonia < 10.0 L (11-32) umol/L Total Protein Albumin Globulin Albumin/Globulin Ratio Procalcitonin 0.34 (0-0.5) ng/ml TSH Salicylates Acetaminophen Ethyl Alcohol mg/dL Administered Medications Aripiprazole (Aripiprazole 5 Mg Tab) 5 mg PO QAM [facility] Stop: 08/15/20 08:59 Last Admin: 07/16/20 08:18 Dose: 5 mg Documented by: [id number] Clotrimazole (Clotrimazole 10 Mg Marce) 10 mg BUCCAL [id number] [facility] Stop: 07/26/20 06:59 Last Admin: 07/16/20 12:23 Dose: 10 mg Documented by: [id number] Admin: 07/16/20 05:37 Dose: 10 mg Documented by: [id number] Famotidine (Famotidine 20 Mg Tab) 20 mg PO BID [facility] Stop: 08/15/20 08:59 Last Admin: 07/16/20 08:18 Dose: 20 mg Documented by: [id number] Fluoxetine HCl (Fluoxetine Hcl 20 Mg Cap) 60 mg PO QAM [facility] Stop: 08/15/20 08:59 Last Admin: 09/24/20 08:18 Dose: 60 mg Documented by: [id number] Folic Acid (Folic Acid 1 Mg Tab) 1 mg PO QAM [facility] Stop: 08/15/20 01:59 Last Admin: 07/16/20 08:18 Dose: 1 mg Documented by: [id number] Admin: 07/16/20 02:46 Dose: 1 mg Documented by: [id number] Hydroxyzine HCl (Hydroxyzine Hcl 10 Mg Tab) 10 mg PO QID PRN PRN Reason: Anxiety Stop: 08/15/20 02:42 Last Admin: 07/16/20 08:45 Dose: 10 mg Documented by: [id number] Potassium Chloride 40 meq/ (Sodium Chloride) 1,020 mls @ 200 mls/hr IV .Q5H6M [facility] Stop: 08/15/20 04:59 Last Admin: 07/16/20 11:01 Dose: 200 mls/hr Documented by: [id number] Infusion: 07/16/20 11:01 Dose: 0 mls/hr Documented by: [id number] Admin: 07/16/20 05:30 Dose: 200 mls/hr Documented by: [id number] [facility]ivitamins ([facility]amin Tab) [facility] [place] Stop: 08/15/20 08:59 Last Admin: 07/16/20 08:18 Dose: 1 tab Documented by: [id number] Pantoprazole Sodium (Pantoprazole 40 Mg Tab) [facility] [place] Stop: 08/15/20 08:59 Last Admin: 07/16/20 08:17 Dose: 40 mg Documented by: [id number] Potassium Chloride (Potassium Chloride 20 Meq Tabcr) 20 meq PO BID [facility] Stop: 08/15/20 08:59 Last Admin: 07/16/20 08:18 Dose: 20 meq Documented by: [id number] Thiamine HCl (Thiamine Hcl 100 Mg Tab) [facility] [place] Stop: 08/15/20 01:59 Last Admin: 07/16/20 08:17 Dose: 100 mg Documented by: [id number] Admin: 07/16/20 02:46 Dose: 100 mg Documented by: [id number] Topiramate (Topiramate 50 Mg Tab) 50 mg PO QAM [facility] Stop: 08/15/20 08:59 Last Admin: 07/16/20 08:19 Dose: 50 mg Documented by: [id number] Discontinued Medications Calcium Gluconate (Calcium Gluconate 10% 10 Ml Vial) 2,000 mg IV NOW STA Stop: 07/15/20 23:15 Last Admin: 07/15/20 23:43 Dose: 2,000 mg Documented by: [id number] Clotrimazole (Clotrimazole 10 Mg Marce) 10 mg BUCCAL ONE STA Stop: 07/16/20 00:22 Last Admin: 07/16/20 00:25 Dose: 10 mg Documented by: [id number] Diazepam (Diazepam 5 Mg/Ml Inj 10ml Vial) 5 mg IV Q15M PRN PRN Reason: Alcohol Withdrawal Stop: 08/14/20 21:35 Last Admin: 07/16/20 01:06 Dose: 5 mg Documented by: [id number] Admin: 07/15/20 23:43 Dose: 5 mg Documented by: [id number] Gabapentin (Gabapentin 600 Mg Tab) 1,200 mg PO NOW STA Stop: 07/15/20 23:58 Last Admin: 07/16/20 00:04 Dose: 1,200 mg Documented by: [id number] Gabapentin (Gabapentin 600 Mg Tab) 600 mg PO Q6H [facility] Stop: 07/16/20 12:01 Last Admin: 07/16/20 12:24 Dose: 600 mg Documented by: [id number] Admin: 07/16/20 05:31 Dose: 600 mg Documented by: [id number] Sodium Chloride (Nss 1000ml) 1,000 mls @ 999 mls/hr IV .Q1H1M [facility] Stop: 07/15/20 21:00 Last Infusion: 07/16/20 01:07 Dose: 0 mls/hr Documented by: [id number] Admin: 07/15/20 21:16 Dose: 999 mls/hr Documented by: [id number] Multivitamins 10 ml/ Thiamine HCl 100 mg/ Folic Acid 1 mg/Sodium Chloride 1,011.2 mls @ 1,011.2 mls/hr IV .Q1H ONE Stop: 07/15/20 20:52 Last Infusion: 07/15/20 22:15 Dose: 0 mls/hr Documented by: [id number] Admin: 07/15/20 21:15 Dose: 1,011.2 mls/hr Documented by: [id number] Magnesium Sulfate/Dextrose (Magnesium Sulfate / D5w) 1 gm in 100 mls @ 100 mls/hr IV NOW STA Stop: 07/16/20 00:13 Last Infusion: 07/16/20 01:07 Dose: 0 mls/hr Documented by: [id number] Admin: 07/15/20 23:43 Dose: 100 mls/hr Documented by: [id number] Potassium Chloride 40 meq/ (Sodium Chloride) 1,020 mls @ 200 mls/hr IV .Q5H6M STA Stop: 07/16/20 04:47 Last Infusion: 07/16/20 02:17 Dose: 0 mls/hr Documented by: [id number] Infusion: 07/16/20 02:16 Dose: 0 mls/hr Documented by: [id number] Admin: 07/16/20 01:06 Dose: 200 mls/hr Documented by: [id number] Parenteral Electrolytes (Normosol-R) 1,000 mls @ 999 mls/hr IV .Q1H1M ONE Stop: 07/16/20 02:45 Last Infusion: 07/16/20 03:10 Dose: 0 mls/hr Documented by: [id number] Admin: 07/16/20 02:02 Dose: 999 mls/hr Documented by: [id number] Parenteral Electrolytes (Normosol-R) 500 mls @ 999 mls/hr IV .Q31M ONE Stop: 07/16/20 03:30 Last Infusion: 07/16/20 04:04 Dose: 0 mls/hr Documented by: [id number] Admin: 07/16/20 03:01 Dose: 999 mls/hr Documented by: [id number] Magnesium Sulfate/Dextrose (Magnesium Sulfate / D5w) 1 gm in 100 mls @ 50 mls/hr IV ONE ONE Stop: 07/16/20 04:29 Last Infusion: 07/16/20 05:32 Dose: 0 mls/hr Documented by: [id number] Admin: 07/16/20 02:49 Dose: 50 mls/hr Documented by: [id number] Potassium Chloride (Potassium Chloride 20 Meq Tabcr) 40 meq PO NOW STA Stop: 07/15/20 23:43 Last Admin: 07/15/20 23:59 Dose: 40 meq Documented by: [id number] Raspberry (Raspberry Syrup 5 Ml Udp) 5 ml PO ONE STA Stop: 07/16/20 02:01 Last Admin: 07/16/20 02:46 Dose: 5 ml Documented by: [id number] Vancomycin HCl (Vancomycin Hcl 125 Mg/2.5ml Soln) 125 mg PO ONE STA Stop: 07/16/20 02:01 Last Admin: 07/16/20 02:46 Dose: 125 mg Documented by: [id number] Discharge Plan Visit Data Chief Complaint: Detox Request Stated Complaint: Alcohol detox ED Provider: Dalton Singleton Discharge Problem: Elevated LFTs, Hypokalemia, Hypomagnesemia, Alcohol abuse, Hyperbilirubinemia Patient Disposition: Admitted As Inpatient Discharge Instructions Interventions: ED Discharge Assessment Last Done: 07/16/20 01:40
[2020-07-15 21:15] LABS: Basophils # (auto) 0.05 K/uL (0-0.2); Basophils % (auto) 0.4 %; Eosinophils # (auto) 0.22 K/uL (0-0.5); Eosinophils % (auto) 1.6 %; Hematocrit (blood only) 36.6 % (37-47); Hemoglobin 12.4 g/dL (12.0-16.0); Immature Granulocytes # (auto) 0.04 K/uL (0.00-0.02); Immature Granulocytes % (auto) 0.3 %; Lymphocytes % (auto) 10.4 %; Mean Corpuscular Hemoglobin 36.8 pg (25-34); Mean Corpuscular Hgb Conc 33.9 g/dL (32-36); Mean Corpuscular Volume 108.6 fL (80-100); Mean Platelet Volume 13.1 fL (7.4-10.4); Monocytes # (auto) 0.96 K/uL (0.11-0.59); Monocytes % (auto) 7.1 %; Neutrophils # (auto) 10.78 K/uL (1.4-6.5); Neutrophils % (auto) 80.2 %; Platelet Count 281 K/uL (130-400); RDW Coefficient of Variation 18.5 % (11.5-14.5); RDW Standard Deviation 70.3 fL (36.4-46.3); Red Blood Count 3.37 M/uL (4.2-5.4); White Blood Count 13.45 K/uL (4.8-10.8)
[2020-07-15 22:48] LABS: INR 1.4 (0.9-1.1); Partial Thromboplastin Ratio 1.1; Partial Thromboplastin Time 31.8 Seconds (21.0-31.0); Prothrombin Time 14.6 Seconds (9.0-12.0)
[2020-07-15 22:58] LABS: Albumin Level 1.8 gm/dl (3.4-5.0); BUN Creatinine Ratio 2.3 (10-20); Calcium 7.8 mg/dl (8.5-10.1); Creatinine Clr Calc Pharmacy 96.4 ml/min; Est GFR (African American) 125.7; Est GFR (Non-African American) 108.5; Magnesium 1.5 mg/dl (1.8-2.4); Potassium 3.1 mmol/L (3.5-5.1)
[2020-07-15 23:09] LABS: Albumin Globulin Ratio 0.7 (0.9-2); Bilirubin,Total 4.5 mg/dl (0.2-1); Globulin 2.7 gm/dl (2.5-4.0); Phosphorus 2.5 mg/dl (2.5-4.9); Thyroid Stimulating Hormone 3.76 uIu/ml (0.300-4.500); Total Protein 4.5 gm/dl (6.4-8.2)
[2020-07-15] MEDS ORDERED: MAGNESIUM SULFATE / D5W 1 GM/100 ML BAG IV STA (23:14)
[2020-07-15] MEDS ORDERED: CALCIUM GLUCONATE 10% 10 ML VIAL IV STA (23:14)
[2020-07-15] MEDS ORDERED: POTASSIUM CHLORIDE 20 MEQ TABCR PO STA (23:42)
[2020-07-15] MEDS ORDERED: POTASSIUM CHLORIDE 40 MEQ in SODIUM CHLORIDE 0.9% 1000ML 1,000 ML IV STA (23:42)
[2020-07-15] MEDS: DIAZEPAM 5 MG/ML INJ 10ML VIAL IV PRN (23:43)
--- NOTE | 2020-07-15 23:46 | History & Physical Report ---
Date of Service July 15, 2020 Assessment & Plan (1) Alcohol withdrawal: hx alcohol withdrawal seizures Diarrhea rule out C. difficile, possible sepsis Hypokalemia, hypomagnesemia secondary to illness anxiety/mood disorder, at baseline Oral thrush ongoing tobacco abuse. Medical telemetry DT precautions/FAY S Stool C. difficile Cultures, check lactic acid Oral vancomycin 1 dose now given sepsis criteria IVF Replace electrolytes Topical clotrimazole for oral thrush Social service RE discharge planning Nicotine patch PRN DVT prophylaxis. SCDs RE LGIB Full code Text document was generated using [employer] voice recognition software. It may contain grammatical or spelling errors. Kindly contact undersigned for clarification of any documentation item in question. History of Present Illness Chief Complaint: Detox Primary Care Provider: Stephenie Simmons MD History obtained from patient and records. Medical history significant for anxiety/mood disorder, ongoing tobacco/alcohol abuse. Last confinement March 2020 for alcohol withdrawal seizure. Patient refused alcohol rehab placement. 2 weeks history of diarrhea symptoms without abdominal pain. Outpatient blood work showed low potassium. Patient sent to the ER for evaluation. Today patient decided to try quitting alcohol again. Worried about oral thrush without odynophagia symptoms. Persistent diarrhea with some bloody spotting. Some nausea. No abdominal pain, no chest pain, no S OB, no fever no chills. Denies dysuria. At the ER, patient given diazepam for alcohol withdrawal. Medical History as above Surgical History : Cataract surgery Family History : Diabetes Personal/Social history : Pack daily, past alcohol abuse, prior work for a [employer] Allergies Allergy/AdvReac Type Severity Reaction Status Date / Time No Known Allergies Allergy Verified 07/15/20 21:28 Home Medications Home Medications Medication Instructions Recorded Confirmed Type aripiprazole [Abilify] 5 mg PO QAM 09/25/19 07/15/20 History etonogestrel-ethinyl estradiol 1 vag ring VAGINAL DIRECTED 11/19/19 07/15/20 History [NuvaRing] topiramate 50 mg PO QAM #60 tab 01/22/20 07/15/20 Rx omeprazole magnesium [Prilosec OTC] 20 mg PO QAM 04/20/20 07/15/20 History famotidine 20 mg PO BID #20 tab 07/11/20 07/15/20 Rx fluoxetine 60 mg PO QAM 07/11/20 07/15/20 History magnesium oxide 500 mg PO BID #14 tab 07/11/20 07/15/20 Rx multivitamin 1 tab PO BID 07/11/20 07/15/20 History potassium chloride [Klor-Con M20] 20 meq PO BID #14 tab 07/11/20 07/15/20 Rx ondansetron 4 mg PO Q6H PRN 07/15/20 07/15/20 History Past Med/Surg History Medical History Admitted to intensive care unit Alcohol withdrawal Alcohol withdrawal seizure Alcoholism Depression Elevated LFTs Empyema of right pleural space Gram-positive bacteremia Hypophosphatemia Pulmonary abscess Sepsis Severe sepsis Thrombocytopenia Tobacco use Surgical History Status post lung surgery (10/02/19) Evacuation of Empyema with extensive decortication Dr. Jose 10/02/19 Family History Mother Diabetes Social History Smoking Status: Current every day smoker Tobacco Type: Cigarettes Cigarettes Per Day: 20; Second Hand Exposure: No; Hx Alcohol Use: Yes Alcohol type: hard liquor Alcohol Intake Frequency Comment: 3-4 8% - daily Hard lemonade Hx Substance Use: No Preferred Language: Turkish Communication Ability: Effective Visual Impairment: No Limitations Hearing Ability: Normal [employer] Required: No Beliefs That Will Affect Care: None marital status: Single marital status details: Boyfriend Current Living Situation: Parent Feels Safe at Home: Yes Assistive Devices: Contacts and Glasses Review of Systems Review of Systems: As per HPI, all 10 systems reviewed, all other ROS negative Physical Exam Physical Exam: GENERAL: Comfortable, intoxicated, no respiratory distress SKIN: Normal color, warm HEENT: [place] palpebral conjunctivae, no ptosis, dry buccal mucosa, white patches over tongue surface NECK : Supple, no tenderness CHEST : CTA, no tenderness HEART : Tachycardic, no obvious murmurs ABDOMEN: Some distention, nontender EXTREMITIES : No LE swelling/tenderness, rash noted over the ankles, no other conspicuous deformities noted NEUROLOGIC : Coherent, no facial asymmetry, no other gross focality Results & Data Results & Data ([facility]) Vital Signs (Past 12 Hours) Vital Signs Temp Pulse Pulse Resp BP BP Pulse Ox 07/15/20 21:50 109 H 18 112/73 99 07/15/20 18:15 36.9 C 132 H 18 112/82 100 Laboratory Results Laboratory Results WBC 13.45 K/uL (4.8-10.8) H 07/15/20 20:06 RBC 3.37 M/uL (4.2-5.4) L 07/15/20 20:06 Hgb 12.4 g/dL (12.0-16.0) 07/15/20 20:06 Hct 36.6 % (37-47) L 07/15/20 20:06 MCV 108.6 fL (80-100) H 07/15/20 20:06 MCH 36.8 pg (25-34) H 07/15/20 20:06 MCHC 33.9 g/dL (32-36) 07/15/20 20:06 RDW Std Deviation 70.3 fL (36.4-46.3) H 07/15/20 20:06 RDW Coeff of Vinod 18.5 % (11.5-14.5) H 07/15/20 20:06 Plt Count 281 K/uL (130-400) 07/15/20 20:06 MPV 13.1 fL (7.4-10.4) H 07/15/20 20:06 Immature Gran % (Auto) 0.3 % 07/15/20 20:06 Neut % (Auto) 80.2 % 07/15/20 20:06 Lymph % (Auto) 10.4 % 07/15/20 20:06 Evans % (Auto) 7.1 % 07/15/20 20:06 Eos % (Auto) 1.6 % 07/15/20 20:06 Baso % (Auto) 0.4 % 07/15/20 20:06 Neut # (Auto) 10.78 K/uL (1.4-6.5) H 07/15/20 20:06 Lymph # (Auto) 1.40 K/uL (1.2-3.4) 07/15/20 20:06 Evans # (Auto) 0.96 K/uL (0.11-0.59) H 07/15/20 20:06 Eos # (Auto) 0.22 K/uL (0-0.5) 07/15/20 20:06 Baso # (Auto) 0.05 K/uL (0-0.2) 07/15/20 20:06 Immature Gran # (Auto) 0.04 K/uL (0.00-0.02) H 07/15/20 20:06 PT 14.6 Seconds (9.0-12.0) H 07/15/20 22:23 INR 1.4 (0.9-1.1) H 07/15/20 22:23 APTT 31.8 Seconds (21.0-31.0) H 07/15/20 22:23 PTT Ratio 1.1 07/15/20 22:23 Sodium 139 mmol/L (136-145) 07/15/20 22: Potassium 3.1 mmol/L (3.5-5.1) L 07/15/20 22:23 Chloride 102 mmol/L (98-107) 07/15/20 22:23 Carbon Dioxide 22 mmol/L (21-32) 07/15/20 22:23 Anion Gap 15.0 (3-11) H 07/15/20 22:23 BUN 2 mg/dl (7-18) L 07/15/20 22:23 Creatinine 0.75 mg/dl (0.6-1.2) 07/15/20 22:23 Est Cr Clr Drug Dosing 96.4 ml/min 07/15/20 22:23 Est GFR ( Amer) 125.7 07/15/20 22:23 Est GFR (Non-Af Amer) 108.5 07/15/20 22:23 BUN/Creatinine Ratio 2.3 (10-20) L 07/15/20 22:23 Glucose 76 mg/dl (70-99) 07/15/20 22:23 Calcium 7.8 mg/dl (8.5-10.1) L 07/15/20 22:23 Phosphorus 2.5 mg/dl (2.5-4.9) 07/15/20 22:23 Magnesium 1.5 mg/dl (1.8-2.4) L 07/15/20 22:23 Total Bilirubin 4.5 mg/dl (0.2-1) H 07/15/20 22:23 AST 110 U/L (15-37) H 07/15/20 22:23 ALT 56 U/L (12-78) 07/15/20 22:23 Alkaline Phosphatase 228 U/L (45-117) H 07/15/20 22:23 Ammonia < 10.0 umol/L (11-32) L 07/15/20 22:23 Total Protein 4.5 gm/dl (6.4-8.2) L 07/15/20 22: Albumin 1.8 gm/dl (3.4-5.0) L 07/15/20 22:23 Globulin 2.7 gm/dl (2.5-4.0) 07/15/20 22:23 Albumin/Globulin Ratio 0.7 (0.9-2) L 07/15/20 22: TSH 3.760 uIu/ml (0.300-4.500) 07/15/20 22:23 Salicylates mg/dl (2.8-20) 07/15/20 22: Acetaminophen ug/ml (10-30) 07/15/20 22:23 Ethyl Alcohol mg/dL < 3.0 mg/dl (0-3) 07/15/20 22:23 Diagnostic Findings Chest x-ray as per my interpretation elevated right hemidiaphragm EKG as per my interpretation : Rate 105, sinus tachycardia, normal axis, no ischemia
[2020-07-15] MEDS ORDERED: GABAPENTIN 800 MG TAB PO STA (23:52)
[2020-07-15] MEDS ORDERED: GABAPENTIN 600 MG TAB PO STA (23:57)
[2020-07-16] MEDS ORDERED: CLOTRIMAZOLE 10 MG TROCHE BUCCAL STA (00:21)
[2020-07-16] MEDS: DIAZEPAM 5 MG/ML INJ 10ML VIAL IV PRN (01:06)
[2020-07-16] MEDS ORDERED: NORMOSOL-R 1,000 ML IV ONE (01:45)
[2020-07-16] MEDS ORDERED: OXYCODONE HCL IR 5 MG TAB (IMMEDIATE RELEASE) PO PRN (02:00)
[2020-07-16] MEDS ORDERED: LORazepam 1 MG/2 ML VIAL IV PRN (02:00)
[2020-07-16] MEDS ORDERED: LORazepam 2 MG/4 ML VIAL IV PRN (02:00)
[2020-07-16] MEDS ORDERED: GABAPENTIN 1200MG ALCOHOL WITHDRAWAL LOAD PO STA (02:00)
[2020-07-16] MEDS ORDERED: RASPBERRY SYRUP 5 ML UDP PO STA (02:00)
[2020-07-16] MEDS ORDERED: ATIVAN IV ALCOHOL WITHDRAWL IV PRN (02:00)
[2020-07-16] MEDS ORDERED: VANCOMYCIN HCL 125 MG/2.5ML SOLN PO STA (02:00)
[2020-07-16] MEDS ORDERED: LORazepam 3 MG/6 ML VIAL IV PRN (02:00)
[2020-07-16] MEDS ORDERED: ACETAMINOPHEN 325 MG TAB PO PRN (02:00)
[2020-07-16] MEDS ORDERED: MAGNESIUM SULFATE / D5W 1 GM/100 ML BAG IV ONE (02:30)
[2020-07-16] MEDS: FOLIC ACID 1 MG TAB PO SCH ×2 (02:46→08:18)
[2020-07-16] MEDS: THIAMINE HCL 100 MG TAB PO SCH ×2 (02:46→08:17)
[2020-07-16] MEDS ORDERED: NORMOSOL-R 500 ML IV ONE (03:00)
[2020-07-16] MEDS: POTASSIUM CHLORIDE 40 MEQ in SODIUM CHLORIDE 0.9% 1000ML 1,000 ML IV SCH ×3 (05:30→16:28)
[2020-07-16] MEDS: GABAPENTIN 600 MG TAB PO SCH ×3 (05:31→19:44)
[2020-07-16] MEDS: CLOTRIMAZOLE 10 MG TROCHE BUCCAL SCH ×5 (05:37→22:20)
[2020-07-16 05:57] LABS: Pregnancy Test, Urine Negative (Negative)
[2020-07-16 05:58] LABS: Appearance Urine Clear (Clear); Bacteria Urine Automated Negative (Negative); Bilirubin Urine Negative (Negative); Blood Urine Negative (Negative); Cast Urine Automated 0 /lpf (0-5); Color Urine Dark Yellow; Epithelial Cell Urine Auto 0-5 /lpf (0-5); Glucose Urine UA Negative (Negative); Ketones Urine Negative (Negative); Leukocyte Esterase Urine Trace (Negative); Nitrite Urine Negative (Negative); Protein Urine Negative (Negative); RBC Urine Automated 0-4 /hpf (0-4); Specific Gravity Urine 1.007 (1.000-1.030); Urobilinogen Urine Negative (Negative); pH Urine 7.5 (4.5-7.5)
[2020-07-16 06:15] LABS: Amphetamines+Metham, Urine Neg (Neg); Barbiturates, Urine Neg (Neg); Benzodiazepine, Urine Neg (Neg); Cocaine, Urine Neg (Neg); MDMA (Ecstacy), Urine Neg (Neg); Methadone, Urine Neg (Neg); Opiate, Urine Neg (Neg); Phencyclidine, Urine Neg (Neg)
--- NOTE | 2020-07-16 07:16 | XRay Report ---
XR chest 1V portable CLINICAL HISTORY: Possible sepsis. COMPARISON STUDY: Chest CT November 19, 2019. Chest radiograph July 11, 2020. FINDINGS: Patient is rotated. There is no pneumothorax or pleural effusion. Linear right midlung opac ity favors atelectasis or scarring. No consolidation to suggest pneumonia. There is no evidence for p ulmonary edema. Allowing for rotation, cardiomediastinal silhouette is stable. IMPRESSION: No acute cardiopulmonary findings. ACT 112: Negative or not required by law. Electronically signed by: Harrison Manning M.D. 07/16/2020 7:15 AM
[2020-07-16] MEDS: PANTOprazole 40 MG TAB PO SCH (08:17)
[2020-07-16] MEDS: MULTIVITAMIN TAB PO SCH (08:18)
[2020-07-16] MEDS: FAMOTIDINE 20 MG TAB PO SCH ×2 (08:18→20:28)
[2020-07-16] MEDS: POTASSIUM CHLORIDE 20 MEQ TABCR PO SCH ×2 (08:18→20:28)
[2020-07-16] MEDS: ARIPiprazole 5 MG TAB PO SCH (08:18)
[2020-07-16] MEDS: FLUOXETINE HCL 20 MG CAP PO SCH (08:18)
[2020-07-16] MEDS: TOPIRAMATE 50 MG TAB PO SCH (08:19)
[2020-07-16 08:45] LABS: Albumin Level 1.9 gm/dl (3.4-5.0); BUN Creatinine Ratio 3.2 (10-20); Calcium 8.1 mg/dl (8.5-10.1); Creatinine Clr Calc Pharmacy 124.7 ml/min; Est GFR (African American) 145.4; Est GFR (Non-African American) 125.4; Potassium 4.7 mmol/L (3.5-5.1)
[2020-07-16] MEDS: hydrOXYzine HCl 10 MG TAB PO PRN (08:45)
[2020-07-16] MEDS ORDERED: MULTIVITAMIN TAB PO SCH (09:00)
[2020-07-16 09:02] LABS: Albumin Globulin Ratio 0.6 (0.9-2); Basophils # (auto) 0.03 K/uL (0-0.2); Basophils % (auto) 0.3 %; Bilirubin,Total 5.6 mg/dl (0.2-1); Eosinophils # (auto) 0.69 K/uL (0-0.5); Eosinophils % (auto) 7.4 %; Globulin 3.2 gm/dl (2.5-4.0); Hematocrit (blood only) 33.7 % (37-47); Hemoglobin 11.2 g/dL (12.0-16.0); Immature Granulocytes # (auto) 0.02 K/uL (0.00-0.02); Immature Granulocytes % (auto) 0.2 %; Lymphocytes # (auto) 1.28 K/uL (1.2-3.4); Lymphocytes % (auto) 13.7 %; Magnesium 2.4 mg/dl (1.8-2.4); Mean Corpuscular Hemoglobin 36.1 pg (25-34); Mean Corpuscular Hgb Conc 33.2 g/dL (32-36); Mean Corpuscular Volume 108.7 fL (80-100); Mean Platelet Volume 12.7 fL (7.4-10.4); Monocytes # (auto) 0.73 K/uL (0.11-0.59); Monocytes % (auto) 7.8 %; Neutrophils # (auto) 6.57 K/uL (1.4-6.5); Neutrophils % (auto) 70.6 %; Platelet Count 211 K/uL (130-400); RDW Coefficient of Variation 17.6 % (11.5-14.5); RDW Standard Deviation 67.9 fL (36.4-46.3); Total Protein 5.1 gm/dl (6.4-8.2); White Blood Count 9.32 K/uL (4.8-10.8)
[2020-07-16 12:21] LABS: Hematocrit (blood only) 31.4 % (37-47); Hemoglobin 10.6 g/dL (12.0-16.0)
--- NOTE | 2020-07-16 15:46 | Hospitalist Progress Note ---
Date of Service July 16, 2020 Assessment & Plan (1) Alcohol abuse: Multiple admission for alcohol abuse/alcohol Withdrawal Hx of seizure related to alcohol withdrawn Pt said that she drinks daily and last alcohol drink was Monday morning Alcohol level on admission less than 3 Continue Gabapentin/Ativan alcohol withdrawn protocol Continue monitor closely for signs of withdrawn and DT Continue Folic acid and Thiamine Counseling on alcohol cessation Discussed for possible to go back for inpatient alcohol rehab, she refused to go back to inpatient alcohol rehab Elevated liver enzymes related to alcohol abuse Liver enzymes on admission with AST 110 and ALK 228 Liver enzymes increased today with AST 124 and ALK 276 Will check liver u/s Continue monitor LFT Elevate INR Due to alcohol hepatitis INR 1.4 on admission No sign of bleeding Elevated lactic Acid Mostly related to alcohol No sign of infection WBC on admission elevated, back to normal CXR showed no infiltrate Procalcitonin normal Blood cx pending Continue IVF Monitor Lactic acid Hx Seizure: Mostly related to alcohol withdrawal seizure Continue topamax Seizure precaution Continue monitor closely Tachycardia Mostly related to alcohol withdrawn Continue monitor Tobacco abuse Counseling on tobacco cessation Continue Nicotine patch Depression Anxiety Denies any suicidal thought Pt said that after taking her psych med, she felt drowsy Continue Fluoxetine 60mg daily and Aripiprazole Continue Hydroxyzine PRN Diarrhea Stool for Cdiff negative Continue monitor electrolytes Oral thrush Continue clotrimazole Code status Full code DVT px on SCD Admission and Anticipated Discharge Date Admission Date: July 15, 2020 Subjective Pt was seen and examined Lying in bed with no distress Pt said that she feels a little better today She said that she is not puking anymore Pt said that her last drink was Monday morning She said that she continues to have water diarrhea Denies any chest pain, palpitation, dizziness, hallucination Physical Exam Physical Exam: General- No acute distress Head- atraumatic Eyes- PERRL, EOMI, +jaundice ENT- oropharynx clear Neck- supple, no JVD Lungs- clear to auscultation Heart- regular rhythm; no murmur Abdomen- normal bowel sounds, soft, nontender Extremities- no calf tenderness Neuro- alert, oriented x 3; PERRL, EOMI; no facial palsy; no dysarthria, No nustagmus Skin- warm & dry Results & Data Results & Data ([facility]) Vital Signs (Past 12 Hours) Vital Signs Temp Pulse Pulse Resp BP Pulse Ox 07/16/20 11:45 36.7 C 97 H 17 103/71 100 07/16/20 07:41 36.7 C 105 H 17 98/65 L 99 07/16/20 07:25 96 H 07/16/20 04:26 36.8 C 96 H 16 99/65 L 98
[2020-07-16] MEDS ORDERED: SODIUM CHLORIDE 0.9% 1000ML 1,000 ML IV ONE (19:35)
[2020-07-16] MEDS: CLOTRIMAZOLE 1% CR 15 GM TUBE EXT SCH (20:28)
[2020-07-16] MEDS: SODIUM CHLORIDE 0.9% 1000ML 1,000 ML IV SCH (21:57)
[2020-07-17 01:37] LABS: Hematocrit (blood only) 30.5 % (37-47); Hemoglobin 10.3 g/dL (12.0-16.0); Mean Corpuscular Hemoglobin 37.2 pg (25-34); Mean Corpuscular Hgb Conc 33.8 g/dL (32-36); Mean Corpuscular Volume 110.1 fL (80-100); Mean Platelet Volume 11.6 fL (7.4-10.4); Platelet Count 212 K/uL (130-400); RDW Standard Deviation 71.5 fL (36.4-46.3); Red Blood Count 2.77 M/uL (4.2-5.4); White Blood Count 9.92 K/uL (4.8-10.8)
[2020-07-17 01:55] LABS: Albumin Level 1.8 gm/dl (3.4-5.0); BUN Creatinine Ratio 2.1 (10-20); Calcium 7.7 mg/dl (8.5-10.1); Creatinine Clr Calc Pharmacy 122.6 ml/min; Est GFR (African American) 144.6; Est GFR (Non-African American) 124.7; Potassium 5.1 mmol/L (3.5-5.1)
[2020-07-17 02:07] LABS: Albumin Globulin Ratio 0.6 (0.9-2); Globulin 2.8 gm/dl (2.5-4.0); Total Protein 4.6 gm/dl (6.4-8.2)
[2020-07-17] MEDS: SODIUM CHLORIDE 0.9% 1000ML 1,000 ML IV SCH ×3 (02:56→11:18)
[2020-07-17] MEDS: GABAPENTIN 600 MG TAB PO SCH ×3 (04:12→23:42)
[2020-07-17] MEDS ORDERED: SODIUM BICARB 8.4% INJ 50 MEQ/50 ML SYR IV STA (04:56)
[2020-07-17] MEDS: CLOTRIMAZOLE 10 MG TROCHE BUCCAL SCH ×5 (06:22→20:47)
[2020-07-17 07:40] LABS: BUN Creatinine Ratio 2.3 (10-20); Blood Urea Nitrogen 1 mg/dl (7-18); Calcium 8.4 mg/dl (8.5-10.1); Carbon Dioxide 19 mmol/L (21-32); Chloride 113 mmol/L (98-107); Creatinine Clr Calc Pharmacy 147.6 ml/min; Est GFR (African American) > 150.0; Est GFR (Non-African American) 132.6; Glucose 64 mg/dl (70-99); Potassium 5.2 mmol/L (3.5-5.1); Sodium 141 mmol/L (136-145)
[2020-07-17] MEDS: MULTIVITAMIN TAB PO SCH (09:02)
[2020-07-17] MEDS: hydrOXYzine HCl 10 MG TAB PO PRN ×2 (09:03→23:55)
[2020-07-17] MEDS: FOLIC ACID 1 MG TAB PO SCH (09:03)
[2020-07-17] MEDS: FAMOTIDINE 20 MG TAB PO SCH ×2 (09:03→20:47)
[2020-07-17] MEDS: PANTOprazole 40 MG TAB PO SCH (09:03)
[2020-07-17] MEDS: ARIPiprazole 5 MG TAB PO SCH (09:03)
[2020-07-17] MEDS: TOPIRAMATE 50 MG TAB PO SCH (09:03)
[2020-07-17] MEDS: CLOTRIMAZOLE 1% CR 15 GM TUBE EXT SCH ×2 (09:04→20:47)
[2020-07-17] MEDS: FLUOXETINE HCL 20 MG CAP PO SCH (09:04)
[2020-07-17] MEDS: THIAMINE HCL 100 MG TAB PO SCH (09:04)
[2020-07-17] MEDS: NICOTINE 14 MG/24 HR PATCH TD SCH (11:17)
--- NOTE | 2020-07-17 12:24 | Electrocardiogram Report ---
Test Reason : Blood Pressure : / mmHG Vent. Rate : 103 BPM Atrial Rate : 103 BPM P-R Int : 126 ms QRS Dur : 072 ms QT Int : 372 ms P-R-T Axes : 034 050 040 degrees QTc Int : 487 ms Poor data quality, interpretation may be adversely affected Sinus tachycardia Otherwise normal ECG When compared with ECG of 11-JUL-2020 12:39, Non-specific change in ST segment in Anterior leads QT has shortened Confirmed by Fox Domingo ([id number]) on 07/17/2020 12:24:27 PM Referred By: REFERRED SELF Confirmed By:Fox Domingo
--- NOTE | 2020-07-17 15:39 | Hospitalist Progress Note ---
Date of Service July 17, 2020 Assessment & Plan (1) Alcohol abuse: Multiple admission for alcohol abuse/alcohol Withdrawal Hx of seizure related to alcohol withdrawn Pt said that she drinks daily and last alcohol drink was Monday morning Alcohol level on admission less than 3 Continue Gabapentin/Ativan alcohol withdrawn protocol Continue monitor closely for signs of withdrawn and DT Continue Folic acid and Thiamine Counseling on alcohol cessation Discussed for possible to go back for inpatient alcohol rehab, she refused to go back to inpatient alcohol rehab Elevated liver enzymes related to alcohol abuse Liver enzymes on admission with AST 110 and ALK 228 Liver enzymes increased slightly dropped from AST 124 to 110 and ALK from 276 to 269 Liver u/s on 07/11 showed no acute sonographic abnormality is identified in the right upper quadrant. No shadowing gallstones are seen. Enlarged, heterogeneous, and steatotic liver. Continue monitor LFT Elevate INR Due to alcohol hepatitis INR 1.4 on admission No sign of bleeding Chronic Elevated lactic Acid Mostly related to alcohol No sign of infection WBC on admission elevated, back to normal CXR showed no infiltrate Procalcitonin normal Blood cx no growth Continue IVF Monitor Lactic acid Hx Seizure: Mostly related to alcohol withdrawal seizure Continue topamax Seizure precaution Continue monitor closely Tachycardia Mostly related to alcohol withdrawn Continue monitor Tobacco abuse Counseling on tobacco cessation Continue Nicotine patch Depression Anxiety Denies any suicidal thought Pt said that after taking her psych med, she felt drowsy Continue Fluoxetine 60mg daily and Aripiprazole Continue Hydroxyzine PRN Diarrhea Stool for Cdiff negative Continue monitor electrolytes Improved Oral thrush Continue clotrimazole Code status Full code DVT px on SCD Admission and Anticipated Discharge Date Admission Date: July 15, 2020 Subjective Pt was seen and examined Lying in bed with no distress Pt said that she feels ok She said that her diarrhea improves Denies any hallucination, SOB, chest pain and palpitation Physical Exam Physical Exam: General- No acute distress Head- atraumatic Eyes- PERRL, EOMI, +jaundice ENT- oropharynx clear Neck- supple, no JVD Lungs- clear to auscultation Heart- regular rhythm; no murmur Abdomen- normal bowel sounds, soft, nontender Extremities- no calf tenderness Neuro- alert, oriented x 3; PERRL, EOMI; no facial palsy; no dysarthria, No nustagmus Skin- warm & dry Results & Data Results & Data ([facility]) Vital Signs (Past 12 Hours) Vital Signs Temp Pulse Pulse Resp BP Pulse Ox 07/17/20 15:23 36.6 C 99 H 17 105/70 98 07/17/20 11:15 36.6 C 97 H 17 114/80 97 07/17/20 07:19 90 07/17/20 07:15 36.9 C 99 H 17 100/68 97 07/17/20 04:00 36.7 C 93 H 18 104/72 98
[2020-07-18] MEDS: CLOTRIMAZOLE 10 MG TROCHE BUCCAL SCH ×5 (05:36→22:36)
[2020-07-18 07:25] LABS: Alanine Aminotransferase 47 U/L (12-78); Albumin Globulin Ratio 0.5 (0.9-2); Albumin Level 1.8 gm/dl (3.4-5.0); Alkaline Phosphatase 297 U/L (45-117); Aspartate Aminotransferase 95 U/L (15-37); Bilirubin,Total 6.2 mg/dl (0.2-1); Blood Urea Nitrogen < 1 mg/dl (7-18); Calcium 8.9 mg/dl (8.5-10.1); Carbon Dioxide 20 mmol/L (21-32); Chloride 110 mmol/L (98-107); Creatinine Clr Calc Pharmacy 141.8 ml/min; Est GFR (African American) > 150.0; Est GFR (Non-African American) 130.9; Globulin 3.4 gm/dl (2.5-4.0); Glucose 71 mg/dl (70-99); Potassium 4.5 mmol/L (3.5-5.1); Sodium 140 mmol/L (136-145); Total Protein 5.2 gm/dl (6.4-8.2)
[2020-07-18] MEDS: FLUOXETINE HCL 20 MG CAP PO SCH (08:50)
[2020-07-18] MEDS: PANTOprazole 40 MG TAB PO SCH (08:51)
[2020-07-18] MEDS: MULTIVITAMIN TAB PO SCH (08:51)
[2020-07-18] MEDS: FOLIC ACID 1 MG TAB PO SCH (08:51)
[2020-07-18] MEDS: TOPIRAMATE 50 MG TAB PO SCH (08:51)
[2020-07-18] MEDS: FAMOTIDINE 20 MG TAB PO SCH ×2 (08:52→19:34)
[2020-07-18] MEDS: ARIPiprazole 5 MG TAB PO SCH (08:52)
[2020-07-18] MEDS: NICOTINE 14 MG/24 HR PATCH TD SCH (08:52)
[2020-07-18] MEDS: THIAMINE HCL 100 MG TAB PO SCH (08:52)
[2020-07-18] MEDS: hydrOXYzine HCl 10 MG TAB PO PRN ×2 (08:54→19:34)
[2020-07-18] MEDS: CLOTRIMAZOLE 1% CR 15 GM TUBE EXT SCH ×2 (08:55→19:35)
[2020-07-18] MEDS: GABAPENTIN 600 MG TAB PO SCH (11:43)
[2020-07-18] MEDS: PROMETHAZINE HCL 12.5 MG in SODIUM CHLORIDE 0.9% 50 ML IV PRN (13:16)
--- NOTE | 2020-07-18 18:50 | Hospitalist Progress Note ---
Date of Service July 18, 2020 Assessment & Plan (1) Alcohol abuse: Multiple admission for alcohol abuse/alcohol Withdrawal Hx of seizure related to alcohol withdrawn Pt said that she drinks daily and last alcohol drink was Monday morning Alcohol level on admission less than 3 Continue Gabapentin/Ativan alcohol withdrawn protocol Continue monitor closely for signs of withdrawn and DT Continue Folic acid and Thiamine Counseling on alcohol cessation Discussed for possible to go back for inpatient alcohol rehab, she refused to go back to inpatient alcohol rehab Clinically stable Elevated liver enzymes related to alcohol abuse Liver enzymes on admission with AST 110 and ALK 228 Liver enzymes increased slightly dropped from AST 124 to 110 and ALK from 276 to 269 Liver u/s on 07/11 showed no acute sonographic abnormality is identified in the right upper quadrant. No shadowing gallstones are seen. Enlarged, heterogeneous, and steatotic liver. Continue monitor LFT Elevate INR Due to alcohol hepatitis INR 1.4 on admission No sign of bleeding Chronic Elevated lactic Acid Mostly related to alcohol No sign of infection lactic acid dropped to 2.9 today WBC on admission elevated, back to normal CXR showed no infiltrate Procalcitonin normal Blood cx no growth Continue IVF Monitor Lactic acid Hx Seizure: Mostly related to alcohol withdrawal seizure Continue topamax Seizure precaution Continue monitor closely Tachycardia Mostly related to alcohol withdrawn Continue monitor Tobacco abuse Counseling on tobacco cessation Continue Nicotine patch Depression Anxiety Denies any suicidal thought Pt said that after taking her psych med, she felt drowsy Continue Fluoxetine 60mg daily and Aripiprazole Continue Hydroxyzine PRN Diarrhea Stool for Cdiff negative Continue monitor electrolytes Improved Oral thrush Continue clotrimazole Code status Full code DVT px on SCD Disposition Will discharge home tomorrow Admission and Anticipated Discharge Date Admission Date: July 15, 2020 Subjective Pt was seen and examined Lying in bed with no distress Pt is looking much better she said that her appetite is good her diarrhea improves She said that her energy is back Denies any chest pain, palpitation, dizziness, hallucination Physical Exam Physical Exam: General- No acute distress Head- atraumatic Eyes- PERRL, EOMI, +jaundice ENT- oropharynx clear Neck- supple, no JVD Lungs- clear to auscultation Heart- regular rhythm; no murmur Abdomen- normal bowel sounds, soft, nontender Extremities- no calf tenderness Neuro- alert, oriented x 3; PERRL, EOMI; no facial palsy; no dysarthria, No nustagmus Skin- warm & dry Results & Data Results & Data ([facility]) Vital Signs (Past 12 Hours) Vital Signs Temp Pulse Pulse Resp BP BP Pulse Ox 07/18/20 16:00 114 H 07/18/20 15:26 36.7 C 104 H 18 107/75 98 07/18/20 11:57 37.0 C 112 H 18 115/81 97 07/18/20 09:14 93 H 07/18/20 07:32 36.8 C 85 16 102/70 96
[2020-07-18] MEDS ORDERED: LORazepam 0.5 MG TAB PO STA (22:12)
[2020-07-19] MEDS: PROMETHAZINE HCL 12.5 MG in SODIUM CHLORIDE 0.9% 50 ML IV PRN ×2 (01:46→08:35)
[2020-07-19] MEDS: CLOTRIMAZOLE 10 MG TROCHE BUCCAL SCH ×3 (06:14→14:39)
[2020-07-19 08:08] LABS: Albumin Globulin Ratio 0.5 (0.9-2); Albumin Level 1.8 gm/dl (3.4-5.0); BUN Creatinine Ratio 1.9 (10-20); Bilirubin,Total 7.2 mg/dl (0.2-1); Calcium 8.2 mg/dl (8.5-10.1); Est GFR (African American) 140.7; Est GFR (Non-African American) 121.4; Globulin 3.6 gm/dl (2.5-4.0); Total Protein 5.4 gm/dl (6.4-8.2)
[2020-07-19] MEDS: NICOTINE 14 MG/24 HR PATCH TD SCH (08:12)
[2020-07-19] MEDS: FAMOTIDINE 20 MG TAB PO SCH (08:13)
[2020-07-19] MEDS: TOPIRAMATE 50 MG TAB PO SCH (08:13)
[2020-07-19] MEDS: FOLIC ACID 1 MG TAB PO SCH (08:13)
[2020-07-19] MEDS: MULTIVITAMIN TAB PO SCH (08:13)
[2020-07-19] MEDS: FLUOXETINE HCL 20 MG CAP PO SCH (08:13)
[2020-07-19] MEDS: ARIPiprazole 5 MG TAB PO SCH (08:14)
[2020-07-19] MEDS: PANTOprazole 40 MG TAB PO SCH (08:14)
[2020-07-19] MEDS: THIAMINE HCL 100 MG TAB PO SCH (08:14)
[2020-07-19] MEDS: CLOTRIMAZOLE 1% CR 15 GM TUBE EXT SCH (08:15)
[2020-07-19] MEDS: hydrOXYzine HCl 10 MG TAB PO PRN (08:36)
[2020-07-19 08:44] LABS: Potassium 3.8 mmol/L (3.5-5.1)
[2020-07-19] MEDS ORDERED: LORazepam 0.5 MG TAB PO STA ×2 (09:02)
[2020-07-19] MEDS ORDERED: ONDANSETRON INJ 2 MG/ML 2 ML VIAL IV ONE (09:09)
[2020-07-19] MEDS ORDERED: GABAPENTIN 600 MG TAB PO SCH (12:00)
--- NOTE | 2020-07-19 15:03 | Hospitalist Progress Note ---
Date of Service July 19, 2020 Assessment & Plan (1) Alcohol abuse: Multiple admission for alcohol abuse/alcohol Withdrawal Hx of seizure related to alcohol withdrawn Pt said that she drinks daily and last alcohol drink was Monday morning Alcohol level on admission less than 3 Completed Gabapentin/Ativan alcohol withdrawn protocol No signs of alcohol withdrawn and DT Continue Folic acid and Thiamine Counseling on alcohol cessation Discussed for possible to go back for inpatient alcohol rehab, she refused to go back to inpatient alcohol rehab Clinically stable Elevated liver enzymes related to alcohol abuse Liver enzymes on admission with AST 110 and ALK 228 Liver enzymes increased slightly dropped from AST 124 to 110-->93 and ALK from 276 to 269 Liver u/s on 07/11 showed no acute sonographic abnormality is identified in the right upper quadrant. No shadowing gallstones are seen. Enlarged, heterogeneous, and steatotic liver. Continue monitor LFT Elevate INR Due to alcohol hepatitis INR 1.4 on admission No sign of bleeding Chronic Elevated lactic Acid Mostly related to alcohol, (type B lactic acidosis) No sign of infection lactic acid dropped to 2.9 then 3.2 today WBC on admission elevated, back to normal CXR showed no infiltrate Procalcitonin normal Blood cx no growth Continue IVF Monitor Lactic acid Hx Seizure: Mostly related to alcohol withdrawal seizure Continue topamax Seizure precaution Continue monitor closely Tachycardia Mostly related to alcohol withdrawn Continue monitor Tobacco abuse Counseling on tobacco cessation Continue Nicotine patch Depression Anxiety Denies any suicidal thought Pt said that after taking her psych med, she felt drowsy Continue Fluoxetine 60mg daily and Aripiprazole Continue Hydroxyzine PRN Diarrhea Stool for Cdiff negative Continue monitor electrolytes Improved Oral thrush Continue clotrimazole Code status Full code DVT px on SCD Disposition Will discharge home today Admission and Anticipated Discharge Date Admission Date: July 15, 2020 Subjective Pt was seen and examined Lying in bed with no distress Pt said that she feels fine Denies any chest pain, palpitation, dizziness and SOB Physical Exam Physical Exam: General- No acute distress Head- atraumatic Eyes- PERRL, EOMI, +jaundice ENT- oropharynx clear Neck- supple, no JVD Lungs- clear to auscultation Heart- regular rhythm; no murmur Abdomen- normal bowel sounds, soft, nontender Extremities- no calf tenderness Neuro- alert, oriented x 3; PERRL, EOMI; no facial palsy; no dysarthria, No nustagmus Skin- warm & dry Results & Data Results & Data ([facility]) Vital Signs (Past 12 Hours) Vital Signs Temp Pulse Pulse Pulse Resp BP BP 07/19/20 12:47 37.1 C 97 H 88 18 94/65 L 94/63 L 07/19/20 12:05 37.1 C 88 18 94/63 L 07/19/20 10:34 86 07/19/20 07:53 36.6 C 94 H 20 99/66 L 07/19/20 03:02 36.5 C 93 H 20 94/65 L Pulse Ox 07/19/20 12:47 98 07/19/20 12:05 98 07/19/20 10:34 07/19/20 07:53 97 07/19/20 03:02 96
--- NOTE | 2020-07-20 09:05 | Discharge Summary ---
Date of Service July 19, 2020 Admission HPI Per Admitting Provider History obtained from patient and records. Medical history significant for anxiety/mood disorder, ongoing tobacco/alcohol abuse. Last confinement March 2020 for alcohol withdrawal seizure. Patient refused alcohol rehab placement. 2 weeks history of diarrhea symptoms without abdominal pain. Outpatient blood work showed low potassium. Patient sent to the ER for evaluation. Today patient decided to try quitting alcohol again. Worried about oral thrush without odynophagia symptoms. Persistent diarrhea with some bloody spotting. Some nausea. No abdominal pain, no chest pain, no S OB, no fever no chills. Denies dysuria. At the ER, patient given diazepam for alcohol withdrawal. Medical History as above Surgical History : Cataract surgery Family History : Diabetes Personal/Social history : Pack daily, past alcohol abuse, prior work for a [employer] Admission Exam Per Admitting Provider General- No acute distress Head- atraumatic Eyes- PERRL, EOMI, +jaundice ENT- oropharynx clear Neck- supple, no JVD Lungs- clear to auscultation Heart- regular rhythm; no murmur Abdomen- normal bowel sounds, soft, nontender Extremities- no calf tenderness Neuro- alert, oriented x 3; PERRL, EOMI; no facial palsy; no dysarthria, No nustagmus Skin- warm & dry Principal Diagnosis Alcohol abuse Elevated liver enzymes Elevate INR Chronic Elevated lactic Acid Hx Seizure: Tachycardia Tobacco abuse Depression Anxiety Discharge Exam GENERAL: Comfortable, intoxicated, no respiratory distress SKIN: Normal color, warm HEENT: [place] palpebral conjunctivae, no ptosis, dry buccal mucosa, white patches over tongue surface NECK : Supple, no tenderness CHEST : CTA, no tenderness HEART : Tachycardic, no obvious murmurs ABDOMEN: Some distention, nontender EXTREMITIES : No LE swelling/tenderness, rash noted over the ankles, no other conspicuous deformities noted NEUROLOGIC : Coherent, no facial asymmetry, no other gross focality Discharge Data Allergies Allergy/AdvReac Type Severity Reaction Status Date / Time No Known Allergies Allergy Verified 07/15/20 21:28 Consultations 07/15/20 23:14 ED Decision to Admit Stat 07/16/20 02:00 Consult Case Management - Discharge Planning Routine Ordered Studies XR chest 1V portable CLINICAL HISTORY: Possible sepsis. COMPARISON STUDY: Chest CT November 19, 2019. Chest radiograph July 11, 2020. FINDINGS: Patient is rotated. There is no pneumothorax or pleural effusion. Line ar right midlung opacity favors atelectasis or scarring. No consolidation to suggest pneumonia. There is no evidence for pulmonary edema. Allowing for rotation, cardiomediastinal silhouette is stable. IMPRESSION: No acute cardiopulmonary findings. ACT 112: Negative or not required by law. Electronically signed by: Harrison Manning M.D. 07/16/2020 7:15 AM Dictated: 07/16/20713 Transcribed: 07/16/20713 Hospital Course (1) Alcohol abuse: Multiple admission for alcohol abuse/alcohol Withdrawal Hx of seizure related to alcohol withdrawn Pt said that she drinks daily and last alcohol drink was Monday morning Alcohol level on admission less than 3 Completed Gabapentin/Ativan alcohol withdrawn protocol No signs of alcohol withdrawn and DT Continue Folic acid and Thiamine Counseling on alcohol cessation Discussed for possible to go back for inpatient alcohol rehab, she refused to go back to inpatient alcohol rehab Clinically stable Elevated liver enzymes related to alcohol abuse Liver enzymes on admission with AST 110 and ALK 228 Liver enzymes increased slightly dropped from AST 124 to 110-->93 and ALK from 276 to 269 Liver u/s on 07/11 showed no acute sonographic abnormality is identified in the right upper quadrant. No shadowing gallstones are seen. Enlarged, heterogeneous, and steatotic liver. Continue monitor LFT Elevate INR Due to alcohol hepatitis INR 1.4 on admission No sign of bleeding Chronic Elevated lactic Acid Mostly related to alcohol, (type B lactic acidosis) No sign of infection lactic acid dropped to 2.9 then 3.2 today WBC on admission elevated, back to normal CXR showed no infiltrate Procalcitonin normal Blood cx no growth Continue IVF Monitor Lactic acid Hx Seizure: Mostly related to alcohol withdrawal seizure Continue topamax Seizure precaution Continue monitor closely Tachycardia Mostly related to alcohol withdrawn Continue monitor Tobacco abuse Counseling on tobacco cessation Continue Nicotine patch Depression Anxiety Denies any suicidal thought Pt said that after taking her psych med, she felt drowsy Continue Fluoxetine 60mg daily and Aripiprazole Continue Hydroxyzine PRN Diarrhea Stool for Cdiff negative Continue monitor electrolytes Improved Oral thrush Continue clotrimazole Code status Full code DVT px on SCD Disposition Will discharge home today Total Time Total Time Spent Total Time Spent (In Minutes): 35 minutes Total Time Includes: Examination of the Patient, Discharge Planning, Medication Reconciliation, Communication With Other Providers and Other Discharge Plan Discharge Items Patient Disposition: Home - Self-Care Reason For Visit: ETOH WITHDRAWAL Discharge Diagnosis: Alcohol abuse Elevated liver enzymes Elevate INR Chronic Elevated lactic Acid Hx Seizure: Tachycardia Tobacco abuse Depression Anxiety Activity: Resume your previous activity Non-emergency contact: Primary Care Provider Call non-emergency contact if: you have any medication questions Follow-up/Referrals: Stephenie Sandoval MD [Primary Care Provider] - Diet: Regular Addtl Attending Provider Instructions: Follow up with your primary care provider Dr. Ziyad Simmons on 07/24 @ 3:45 PM Follow up with gastroenterology for the alcohol hepatitis ( Already had an appointment) Counseling on alcohol and smoking cessation Fall precaution Continue seizure precaution Pending Studies at Discharge: No Stand-Alone Forms: My [facility] XGIMI, Smoking Cessation, Suicide Prevention Resources Medications and DC Order Prescriptions: New clotrimazole 10 mg Marce 10 mg buccal [id number] Qty: 15 RF: 0 hydroxyzine HCl 10 mg Tablet 10 mg PO TID PRN (Reason: anxiety) Qty: 30 RF: 0 Continued omeprazole magnesium [Prilosec OTC] 20 mg Tablet,Delayed Release (Dr/Ec) 20 mg PO QAM RF: 0 ondansetron 4 mg tablet,disintegrating 4 mg PO Q6H PRN (Reason: Nausea And Vomiting) RF: 0 aripiprazole [Abilify] 5 mg Tablet 5 mg PO QAM RF: 0 etonogestrel-ethinyl estradiol [NuvaRing] 0.12-0.015 mg/24 hr ring 1 vag ring VAGINAL DIRECTED RF: 0 topiramate 50 mg Tablet 50 mg PO QAM Qty: 60 RF: 0 multivitamin Tablet 1 tab PO BID RF: 0 fluoxetine 20 mg capsule 60 mg PO QAM RF: 0 potassium chloride [Klor-Con M20] 20 mEq tablet,ER particles/crystals 20 meq PO BID Qty: 14 RF: 0 famotidine 20 mg tablet 20 mg PO BID Qty: 20 RF: 0 magnesium oxide 500 mg tablet 500 mg PO BID Qty: 14 RF: 0 Discharge Orders: Discharge Order (Routine); Ordered 07/19/20 Ordered By: Kaleigh Mcfarland Admission Data Admit Date/Time: 07/15/20 23:48 Attending Provider: Kaleigh Mcfarland Admit Provider: Oconer,Erik N. Primary Care Provider: Stephenie Sandoval Other Providers: Erik Moser Other Interventions: Discharge Summary Assessment (RN) Last Done: 07/19/20 12:47
== END 2020-07-19 16:24 | disposition home or self-care (01) | DRG 897 ==
LOC: ED 18:03 → 2N 23:48